=== PATIENT | female | born 1950 | race Caucasian/White ===

== ENCOUNTER 2017-08-11 18:46 | Inpatient (IN) | payer MEDICARE, OTHER ==
[2017-08-11 19:16] LABS: Glucose,Whole Blood 254 mg/dL (75-99)
--- NOTE | 2017-08-11 19:18 | ED ---
General Adult HPI - General Chief complaint: Neuro Symptoms/Deficit Stated complaint: DIZZY, CONFUSION, SLURRED SPEACH Time Seen by Provider: 08/11/17 19:03 Source: patient, RN notes reviewed Mode of arrival: ambulatory Limitations: no limitations - History of Present Illness Initial comments: Patient is a pleasant 66-year-old female presenting to the emergency department with several concerns. Patient states onset of symptoms was close to 2 weeks ago. Symptoms have been somewhat intermittent but worse since this morning. Patient has some episodes of slurred speech in the morning however feels at this point that has resolved. Patient does feel off balance at times leans towards the left. Patient does feel confused at times. Patient states she feels somewhat slow to process things. No isolated area of weakness. - Related Data Home Medications Medication Instructions Recorded Confirmed Aspirin [Adult Low Dose Aspirin EC] 81 mg PO HS 08/11/17 08/11/17 Colchicine [Colcrys] 0.6 mg PO BID 08/11/17 08/11/17 DULoxetine HCL [Cymbalta] 30 mg PO BID 08/11/17 08/11/17 Desloratadine [Clarinex] 5 mg PO HS 08/11/17 08/11/17 Doxepin [SINEquan] 20 mg PO HS PRN 08/11/17 08/11/17 Insulin Aspart [Novolog Flexpen] See Protocol SQ TID 08/11/17 08/11/17 Insulin Detemir [Levemir] 50 unit SQ HS 08/11/17 08/11/17 Levothyroxine Sodium [Synthroid] 100 mcg PO HS 08/11/17 08/11/17 Lidocaine 5% Oint [Xylocaine 5% 1 applic TOPICAL BID 08/11/17 08/11/17 Oint] Lisinopril [Prinivil] 5 mg PO HS 08/11/17 08/11/17 Metoprolol Tartrate [Lopressor] 50 mg PO TID 08/11/17 08/11/17 Nitroglycerin Sl Tabs [Nitrostat] 0.4 mg SUBLINGUAL Q5M PRN 08/11/17 08/11/17 Simvastatin 80 mg PO HS 08/11/17 08/11/17 Ticagrelor [Brilinta] 90 mg PO BID 08/11/17 08/11/17 hydrOXYzine HCL 10 mg PO HS PRN 08/11/17 08/11/17 rOPINIRole HCL 3 mg PO TID 08/11/17 08/11/17 Allergies Allergy/AdvReac Type Severity Reaction Status Date / Time Penicillins Allergy Rash/Hives Verified 08/11/17 19:58 Review of Systems ROS Statement: Those systems with pertinent positive or pertinent negative responses have been documented in the HPI. ROS Other: All systems not noted in ROS Statement are negative. Constitutional: Denies: fever Eyes: Denies: eye pain ENT: Denies: ear pain Respiratory: Denies: cough Cardiovascular: Denies: chest pain Endocrine: Denies: fatigue Gastrointestinal: Denies: abdominal pain Genitourinary: Denies: dysuria Musculoskeletal: Denies: back pain Skin: Denies: rash Neurological: Reports: confusion, abnormal gait Past Medical History Past Medical History: Chest Pain / Angina, Diabetes Mellitus History of Any Multi-Drug Resistant Organisms: None Reported Past Surgical History: Heart Catheterization With Stent, Orthopedic Surgery Past Psychological History: Depression Smoking Status: Never smoker Past Alcohol Use History: Occasional Past Drug Use History: None Reported General Exam Limitations: no limitations General appearance: alert, in no apparent distress Head exam: Present: atraumatic Eye exam: Present: normal appearance, PERRL, EOMI. Absent: nystagmus ENT exam: Present: normal oropharynx Neck exam: Present: normal inspection Respiratory exam: Present: normal lung sounds bilaterally Cardiovascular Exam: Present: regular rate, normal rhythm GI/Abdominal exam: Present: soft. Absent: tenderness Extremities exam: Present: normal inspection Neurological exam: Present: alert, oriented X3, CN II-XII intact. Absent: motor sensory deficit Expanded Cranial nerves: EOM's Intact: Normal, Facial Sensation: Normal Cerebellar function: Finger to Nose: Normal Sensory exam: Upper Extremity Light Touch: Normal, Lower Extremity Light Touch: Normal Motor strength exam: RUE: 5, LUE: 5, RLE: 5, LLE: 5 Eye Response: (4) open spontaneously Motor Response: (6) obeys commands Verbal Response: (5) oriented Psychiatric exam: Present: normal affect, normal mood Skin exam: Present: normal color Course Vital Signs 08/11/17 18:58 Temperature 98.7 F Pulse Rate 102 H Respiratory 18 Rate Blood Pressure 187/93 O2 Sat by Pulse 95 Oximetry EKG Findings - EKG Comments: EKG Findings:: Normal sinus rhythm 99. UT 160. QRS 90. QT 352. QTC 451. Normal axis. LVH criteria. Inferior and septal Q waves. No acute ST change. Medical Decision Making - Medical Decision Making Patient reevaluated and resting comfortably in bed. Patient symptom-free at this time. Patient and family updated on results and plan. Case was discussed in detail with Dr. paz, who will admit for hospital call. - Lab Data Result diagrams: 08/11/17 19:11 08/11/17 19:11 Lab Results 08/11/17 08/11/17 08/11/17 Range/Units 19:11 19:11 19:11 WBC 6.1 (3.8-10.6) k/uL RBC 4.48 (3.80-5.40) m/uL Hgb 13.1 (11.4-16.0) gm/dL Hct 39.5 (34.0-46.0) % MCV 88.0 (80.0-100.0) fL MCH 29.2 (25.0-35.0) pg MCHC 33.2 (31.0-37.0) g/dL RDW 14.4 (11.5-15.5) % Plt Count 155 (150-450) k/uL Neutrophils % 64 % Lymphocytes % 27 % Monocytes % 6 % Eosinophils % 0 % Basophils % 0 % Neutrophils # 3.9 (1.3-7.7) k/uL Lymphocytes # 1.7 (1.0-4.8) k/uL Monocytes # 0.3 (0-1.0) k/uL Eosinophils # 0.0 (0-0.7) k/uL Basophils # 0.0 (0-0.2) k/uL PT (9.0-12.0) sec INR (<1.2) APTT (22.0-30.0) sec Sodium 146 H (137-145) mmol/L Potassium 4.3 (3.5-5.1) mmol/L Chloride 104 (98-107) mmol/L Carbon Dioxide 29 (22-30) mmol/L Anion Gap 13 mmol/L BUN 18 H (7-17) mg/dL Creatinine 0.80 (0.52-1.04) mg/dL Est GFR (CKD-EPI)AfAm 88 (>60 ml/min/1.73 sqM) Est GFR (CKD-EPI)NonAf 77 (>60 ml/min/1.73 sqM) Glucose 241 H (74-99) mg/dL POC Glucose (mg/dL) (75-99) mg/dL POC Glu Press Operator Automatic ID Calcium 10.1 (8.4-10.2) mg/dL Total Bilirubin 0.6 (0.2-1.3) mg/dL AST 34 (14-36) U/L ALT 44 (9-52) U/L Alkaline Phosphatase 100 (38-126) U/L Total Creatine Kinase 160 H (30-135) U/L CK-MB (CK-2) 5.4 H* (0.0-2.4) ng/mL CK-MB (CK-2) Rel Index 3.4 Troponin I <0.012 (0.000-0.034) ng/mL Total Protein 6.7 (6.3-8.2) g/dL Albumin 4.2 (3.5-5.0) g/dL 08/11/17 08/11/17 Range/Units 19:11 19:13 WBC (3.8-10.6) k/uL RBC (3.80-5.40) m/uL Hgb (11.4-16.0) gm/dL Hct (34.0-46.0) % MCV (80.0-100.0) fL MCH (25.0-35.0) pg MCHC (31.0-37.0) g/dL RDW (11.5-15.5) % Plt Count (150-450) k/uL Neutrophils % % Lymphocytes % % Monocytes % % Eosinophils % % Basophils % % Neutrophils # (1.3-7.7) k/uL Lymphocytes # (1.0-4.8) k/uL Monocytes # (0-1.0) k/uL Eosinophils # (0-0.7) k/uL Basophils # (0-0.2) k/uL PT 10.4 (9.0-12.0) sec INR 1.1 (<1.2) APTT 27.4 (22.0-30.0) sec Sodium (137-145) mmol/L Potassium (3.5-5.1) mmol/L Chloride (98-107) mmol/L Carbon Dioxide (22-30) mmol/L Anion Gap mmol/L BUN (7-17) mg/dL Creatinine (0.52-1.04) mg/dL Est GFR (CKD-EPI)AfAm (>60 ml/min/1.73 sqM) Est GFR (CKD-EPI)NonAf (>60 ml/min/1.73 sqM) Glucose (74-99) mg/dL POC Glucose (mg/dL) 254 H (75-99) mg/dL POC Glu Press Operator Automatic ID Iesha Ayoub Calcium (8.4-10.2) mg/dL Total Bilirubin (0.2-1.3) mg/dL AST (14-36) U/L ALT (9-52) U/L Alkaline Phosphatase (38-126) U/L Total Creatine Kinase (30-135) U/L CK-MB (CK-2) (0.0-2.4) ng/mL CK-MB (CK-2) Rel Index Troponin I (0.000-0.034) ng/mL Total Protein (6.3-8.2) g/dL Albumin (3.5-5.0) g/dL - Radiology Data Radiology results: report reviewed (Computed tomography scan of the brain shows no acute intercranial hemorrhage. Mild to moderate age-related atrophy.), image reviewed (Chest x-ray shows no acute abnormality.) Disposition Clinical Impression: Transient cerebral ischemia Disposition: ADMITTED IP TO THIS HOSP Is patient prescribed a controlled substance at d/c from ED?: No Referrals: Gaye Barrett MD [Primary Care Provider] - 1-2 days Decision Time: 21:35
[2017-08-11 19:33] LABS: Basophils % (A) 0 %; Eosinophils % (A) 0 %; HCT 39.5 % (34.0-46.0); HGB 13.1 gm/dL (11.4-16.0); Lymphocytes # (A) 1.7 k/uL (1.0-4.8); Lymphocytes % (A) 27 %; MCH 29.2 pg (25.0-35.0); MCHC 33.2 g/dL (31.0-37.0); Mean Platelet Volume 7.8; Monocytes # (A) 0.3 k/uL (0-1.0); Monocytes % (A) 6 %; Neutrophils # (A) 3.9 k/uL (1.3-7.7); Neutrophils % (A) 64 %; Platelet Count 155 k/uL (150-450); RBC 4.48 m/uL (3.80-5.40); RDW 14.4 % (11.5-15.5); WBC 6.1 k/uL (3.8-10.6)
--- NOTE | 2017-08-11 19:33 | XR ---
EXAMINATION TYPE: XR chest 2V DATE OF EXAM: 08/11/2017 COMPARISON: NONE HISTORY: Altered mental status and weakness. TECHNIQUE: Frontal and lateral views of the chest are obtained. FINDINGS: There is chronic parenchymal change without suspicious focal air space opacity, pleural ef fusion, or pneumothorax seen. The cardiac silhouette size is within normal limits. Prominent multile suzanne spurring in the mid to lower thoracic spine is present. IMPRESSION: Chronic changes without acute pulmonary process.
[2017-08-11 19:38] LABS: Albumin 4.2 g/dL (3.5-5.0); Calcium 10.1 mg/dL (8.4-10.2); Potassium 4.3 mmol/L (3.5-5.1); Total Bilirubin 0.6 mg/dL (0.2-1.3); Total Protein 6.7 g/dL (6.3-8.2)
[2017-08-11 19:51] LABS: INR 1.1 (<1.2); Partial Thromboplastin Time 27.4 sec (22.0-30.0); Prothrombin Time 10.4 sec (9.0-12.0)
[2017-08-11 20:00] LABS: Creatine Kinase 160 U/L (30-135)
[2017-08-11 20:13] LABS: Troponin I <0.012 ng/mL (0.000-0.034)
[2017-08-11 20:19] LABS: Creatine Kinase MB 5.4 ng/mL (0.0-2.4)
--- NOTE | 2017-08-11 20:29 | CT ---
EXAMINATION TYPE: CT brain wo con DATE OF EXAM: 08/11/2017 HISTORY: Confusion. Neurodeficits. CT DLP: 1040.6 mGycm. Automated Exposure Control for Dose Reduction was Utilized. TECHNIQUE: CT scan of the head is performed without contrast. COMPARISON: None. FINDINGS: There is no acute intracranial hemorrhage or midline shift identified. There is diffuse v entricular and sulcal prominence consistent with diffuse age-related cerebral atrophy. Lopez-white mat ter differentiation is fairly well preserved. The globes are intact and the visualized sinuses are cl ear. IMPRESSION: No acute intracranial hemorrhage or midline shift. There is mild to moderate diffuse ag e-related cerebral atrophy noted.
[2017-08-11] MEDS ORDERED: ASPIRIN 325 MG TAB PO STA (21:35)
[2017-08-11] MEDS: SODIUM CHLORIDE 0.9% 1,000 ML IV SCH (22:16)
[2017-08-12 03:29] LABS: Cholesterol 157 mg/dL (<200); HDL Cholesterol 33 mg/dL (40-60); LDL Cholesterol,Calculated 100 mg/dL (0-99); Triglycerides 120 mg/dL (<150)
[2017-08-12] MEDS: SODIUM CHLORIDE 0.9% 1,000 ML IV SCH ×2 (04:01→19:39)
[2017-08-12 06:05] LABS: Glucose,Whole Blood 262 mg/dL (75-99)
[2017-08-12] MEDS: INSULIN ASPART 100 UNIT/ML 1 ML 10 ML VIAL SQ SCH ×4 (06:34→22:08)
[2017-08-12] MEDS ORDERED: LIDOCAINE 5% OINTMENT 50 GM JAR TOPICAL PRN (08:16)
[2017-08-12] MEDS ORDERED: DOXEPIN 10 MG CAP PO PRN (08:16)
[2017-08-12] MEDS ORDERED: hydrOXYzine HCL 10 MG TAB PO PRN (08:16)
[2017-08-12] MEDS ORDERED: NITROGLYCERIN SL TABS 0.4 MG TAB SUBLINGUAL PRN (08:16)
[2017-08-12] MEDS ORDERED: ASPIRIN 325 MG TAB PO SCH (09:00)
[2017-08-12] MEDS: COLCHICINE 0.6 MG EACH PO SCH ×2 (10:41→21:04)
[2017-08-12] MEDS: ASPIRIN 81 MG PO SCH (10:41)
[2017-08-12] MEDS: DULoxetine HCL 30 MG CAPSULE.DR PO SCH ×2 (10:42→21:04)
[2017-08-12] MEDS: METOPROLOL TARTRATE 50 MG TAB PO SCH ×3 (10:42→21:06)
[2017-08-12] MEDS: TICAGRELOR 90 MG TAB PO SCH ×2 (10:42→21:04)
[2017-08-12 11:46] LABS: Glucose,Whole Blood 273 mg/dL (75-99)
[2017-08-12 16:41] LABS: Glucose,Whole Blood 257 mg/dL (75-99)
[2017-08-12 17:33] LABS: Hemoglobin A1C 9.5 % (4.0-6.0)
--- NOTE | 2017-08-12 18:47 | HP ---
HISTORY AND PHYSICAL DATE OF ADMISSION: 08/11/2017 DATE OF SERVICE: 08/12/2017 PRESENTING COMPLAINT: Multiple symptoms. HISTORY OF PRESENTING COMPLAINT: This is a 66-year-old patient who follows with a family doctor, Dr. Barrett, out of the area. Patient's chronic stable medical conditions include diabetes, coronary artery disease with stents, last one being in April of this year, depression, restless legs syndrome, hypertension, hypothyroid, gout. Patient presented with a multitude of symptoms. For 2 weeks patient has been getting dizzy, and when she walks she seems to drift to the left side. Also sometimes she feels confused. The patient has had 2 episodes of falling and noted that she has become increasingly forgetful. For example, for the last 2 or 3 days she put an orange on the table to peel and went back to get another orange. She was reminded that she already had an orange there. Patient in the last 3 months has had two admissions to [facility], and her brought her here, just wanting to see if we could look at things from a different view. Patient thinks she may have had also a little bit of slurred speech. I do not have any records from [facility]. She denies any chest pain, palpitation. No fever, no chills. Appetite is fair. Does feel tired and rundown. REVIEW OF SYSTEMS: CONSTITUTIONAL: Tired. HEENT: None. RESPIRATORY: None. CARDIOVASCULAR: None. GASTROINTESTINAL: None. GENITOURINARY: None. MUSCULOSKELETAL: None. DERMATOLOGICAL: None. HEMATOLOGICAL: None. LYMPHATICS: None. PSYCHIATRY: Depression. NEUROLOGICAL: As above. No focal symptoms otherwise. PAST MEDICAL HISTORY: 1. Coronary artery disease with 6 stents, last one being in April of this year. 2. Depression. 3. Diabetes mellitus, type 2. 4. Restless legs syndrome. 5. Hypertension. 6. Hypothyroid. 7. Gout. PAST SURGICAL HISTORY: 1. Cardiac cath with stents, last one in April of this year. 2. Orthopedic surgery. SOCIAL HISTORY: No smoking. No alcohol. Lives with her . FAMILY HISTORY: Reviewed; noncontributory to presentation. HOME MEDICATIONS: 1. Ropinirole 3 mg p.o. t.i.d. 2. Hydroxyzine 10 mg p.o. at bedtime p.r.n. 3. Brilinta 90 mg b.i.d. 4. Lopressor 50 mg p.o. t.i.d. 5. Prinivil 5 mg p.o. at bedtime. 6. Xylocaine 5% one application topically b.i.d. 7. Synthroid 100 mcg a day. 8. Clarinex 5 mg at bedtime. 9. Cymbalta 30 mg p.o. b.i.d. 10.Colchicine 0.6 mg b.i.d. 11.Doxepin 20 mg at bedtime p.r.n. 12.Aspirin 81 mg at bedtime. 13.Levemir 50 units subcutaneously at bedtime. 14.Simvastatin 80 mg at bedtime. 15.Nitrostat 0.4 sublingually q.5 p.r.n. ALLERGIES: PENICILLIN. PHYSICAL EXAMINATION: VITAL SIGNS ON PRESENTATION: Temperature 98.7, pulse 102, respiration 18, blood pressure 187/93, repeat blood pressure 156/66, pulse ox 95% on room air. GENERAL APPEARANCE: Well built; BMI 32.4. Lying in bed, tired-appearing. EYES: Pupils equal. Conjunctivae normal. HEENT: External appearance of nose and ears normal. Oral cavity normal. NECK: JVD not raised. Mass not palpable. RESPIRATORY: Effort normal. LUNGS: Fair air entry. CARDIOVASCULAR: First and second sounds normal. No edema. ABDOMEN: Soft, nontender. Liver and spleen not palpable. LYMPHATIC: No lymph node palpable in neck or axillae. PSYCHIATRY: Patient is able answer questions appropriately. Mood and affect slightly low. NEUROLOGICAL: Pupils equal. Cranial nerves grossly intact. Power and sensation grossly intact. INVESTIGATIONS: White count 6.1, hemoglobin 13.1, sodium 146, potassium 4.3, BUN 18, creatinine 0.80. Accu-Cheks 254, 262. Troponin I less than 0.012. LDL 100. CT scan of the brain: mild to moderate diffuse age-related cerebral atrophy. EKG shows normal sinus rhythm, though poor; not a very good baseline. ASSESSMENT: 1. This is a patient who presented with a multitude of symptoms, feeling dizzy, lightheaded, tired, getting confused sometimes, and increasingly forgetful. Given patient's being overweight and feeling tired and lethargic, need to rule out patient being undercorrected for hypothyroid. At the same time, patient is taking Clarinex at night; that is rather sedative. Will discontinue that and also will discontinue patient's Sinequan. Patient is also taking hydroxyzine p.r.n. at night. Will discontinue all of these because these are all antihistaminics. The patient is also taking ropinirole 3 mg 3 times a day, and that could be having a rather sedative effect. Will cut back on the dose of the same. 2. Rule out orthostatics. 3. Probably mild cognitive impairment. We did a Juan F cognitive assessment test that came back to be okay and the bedside mini cogwheel test that also came back to be okay. 4. Diabetes mellitus, type 2, chronically on insulin, uncontrolled with hyperglycemia. 5. Coronary artery disease with multiple stents, the last being in April of 2017. 6. Depression not otherwise specified. 7. Chronic restless legs syndrome. 8. Hypertension. 9. Hypothyroid. 10.Chronic gout. 11.Obesity; body mass index 32.4. PLAN: Additionally we will do an MRI of the brain and also an EEG to rule out seizure activity. Patient is on a high dose of simvastatin, a dose which has not been approved anymore. We will switch that to Lipitor. Neurological consultation has been done. MMODL / IJN: [id number] /
[2017-08-12] MEDS ORDERED: LORATADINE 10 MG TAB PO SCH (21:00)
[2017-08-12] MEDS: ENOXAPARIN 40 MG/0.4 ML SYRINGE SQ SCH (21:03)
[2017-08-12] MEDS: LACTATED RINGERS 1,000 ML IV SCH (21:03)
[2017-08-12] MEDS: LEVOTHYROXINE 100 MCG TAB PO SCH (21:04)
[2017-08-12] MEDS: ATORVASTATIN 40 MG TAB PO SCH (21:04)
[2017-08-12] MEDS: LISINOPRIL 5 MG TAB PO SCH (21:04)
--- NOTE | 2017-08-12 21:12 | US ---
EXAMINATION TYPE: US carotid duplex BILAT DATE OF EXAM: 08/12/2017 COMPARISON: NONE CLINICAL HISTORY: CVA. CVA EXAM MEASUREMENTS: RIGHT: Peak Systolic Velocity (PSV) cm/sec ----- Right CCA: 65.2 ----- Right ICA: 100.0 ----- Right ECA: 84.9 ICA/CCA ratio: 1.5 RIGHT: End Diastole cm/sec ----- Right CCA: 16.5 ----- Right ICA: 28.4 ----- Right ECA: 8.3 LEFT: Peak Systolic Velocity (PSV) cm/sec ----- Left CCA: 68.5 ----- Left ICA: 95.0 ----- Left ECA: 88.7 ICA/CCA ratio: 1.4 LEFT: End Diastole cm/sec ----- Left CCA: 16.0 ----- Left ICA: 28.4 ----- Left ECA: 12.1 VERTEBRALS (direction of flow): Right Vertebral: Antegrade Left Vertebral: Antegrade Rhythm: Normal IMPRESSION: Mild bilateral atherosclerotic changes noted, no elevated velocities, no significant josé miguel nosis. Criteria for Assigning % of Stenosis / Diameter reduction (Estimation based on the indirect measurements of the internal carotid artery velocities (ICA PSV). 1. Normal (no stenosis)=ICA PSV < 125 cm/s: ratio < 2.0: ICA EDV<40 cm/s. 2. Less than 50% stenosis=ICA PSV < 125 cm/s: ratio < 2.0: ICA EDV<40 cm/s. 3. 50 to 69% stenosis=ICA PSV of 125 to 230 cm/s: ration 2.0 ? 4.0: ICA EDV 40-100 cm/s. 4. Greater than 70% stenosis to near occlusion= ICA PSV > 230 cm/s: ratio > 4.0: ICA EDV > 100 cm/s. 5. Near occlusion= ICA PSV velocities may be low or undetectable: variable ratio and ICA EDV. 6. Total occlusion=unable to detect flow.
[2017-08-12 21:18] LABS: Glucose,Whole Blood 219 mg/dL (75-99)
[2017-08-12] MEDS: INSULIN DETEMIR 100 UNIT/ML 10 ML VIAL SQ SCH (22:08)
--- NOTE | 2017-08-12 22:14 | CONS ---
CONSULTATION DATE OF CONSULTATION: 08/12/2017. CHIEF COMPLAINT: Slurred speech. HISTORY OF PRESENT ILLNESS: The patient is a pleasant 66-year-old female, who is being evaluated by the neurology service per the request of Dr. Donato for some slurred speech. The patient states that she has been having recurrent episodes of slurred speech over the past several days. She feels like the symptoms are more frequent in the morning. She frequently wakes up with significant slurring and this sort of resolves after an hour or 2. She also feels some gait instability when the symptoms are present. She denies having any lateralizing numbness or weakness and denies any swallowing difficulties. She does report some confusion at times when these symptoms occur. She denies any headache or dizziness. A CT scan of the brain was done in the emergency room which showed generalized atrophy and small-vessel ischemic changes. The patient does take aspirin and Brilinta at home. Her CBC was normal. Her comprehensive metabolic profile showed mild hypernatremia at 146 and hyperglycemia at 241. Her cardiac enzymes showed normal troponin I, but her CPK and CK-MB were slightly elevated at 160 and 5.4, respectively. Her fasting lipid panel showed an LDL at 100 and HDL at 33. Her total cholesterol and triglycerides were normal. The patient does state simvastatin at home. At the time of my evaluation, the patient is lying in her bed and appears to be in no acute distress. She does have mild speech slurring with history taking. She denies any other neurological complaints at this time. PAST MEDICAL HISTORY: Coronary artery disease, diabetes, depression, history of orthopedic surgeries, coronary artery stent placement, hypothyroidism, restless legs syndrome. SOCIAL HISTORY: She occasionally drinks alcohol. She denies any tobacco or drug use. FAMILY HISTORY: Noncontributory. HOME MEDICATIONS: Reviewed in the chart. ALLERGIES: PENICILLIN. REVIEW OF SYSTEMS: positive for fatigue. EYES: Negative. ENT: Positive for chronic diminished hearing. CARDIOVASCULAR: Negative. RESPIRATORY: Negative. NEUROLOGICAL: As mentioned above. GASTROINTESTINAL: Positive for occasional heartburn. GENITOURINARY: Negative. PSYCHIATRIC: Positive for history of depression. DERMATOLOGICAL: Negative. ENDOCRINE: Positive for diabetes and hypothyroidism. MUSCULOSKELETAL: Positive for occasional joint pain. PHYSICAL EXAM: Vital signs show a temperature of 97.9, pulse 91, respiration 18, blood pressure 136/79. GENERAL APPEARANCE: The patient is a well-developed, elderly female who appears to be in no acute distress. HEENT: Normocephalic, atraumatic. No facial asymmetry is seen. NECK: Supple with no masses felt. CARDIOVASCULAR: Regular rate and rhythm. Extremities showed trace edema with no clubbing seen. NEUROLOGICAL: The patient is alert, aware and oriented x3. Speech is slightly dysarthric. Language testing is normal. Strength is full in all 4 extremities. Sensory was normal to light touch in all 4 extremities. Mild postural tremors are seen. No seizure-like activity is noticed. No facial asymmetry is seen on cranial nerve testing. IMPRESSION: 1. Dysarthria. 2. Possible stroke. 3. Dyslipidemia. 4. Restless legs syndrome. RECOMMENDATION: The patient continues to have some slurred speech which is still present at the time of my evaluation. She denies any dysphagia at this time. Her CT scan of the brain showed no significant abnormalities. I had a lengthy discussion with the patient regarding the differential diagnosis. I will order an MRI of the brain to rule out any ischemic etiology. I will also order a carotid Doppler, serum homocystine level and EEG. Her fasting lipid panel was reviewed and the patient is already on simvastatin. I will consult Speech Therapy. Continue IV hydration as tolerated. Continue her current anti- platelet therapy. I will continue to follow with you. Further recommendations to follow. Thank you for allowing me to participate in the care of your patient. If you have any questions, please feel free to contact me. JEREMY / NOLAN: [id number] /
[2017-08-12] MEDS: MELATONIN 5 MG TABLET PO SCH (22:43)
[2017-08-13] MEDS: LACTATED RINGERS 1,000 ML IV SCH ×2 (05:25→16:36)
[2017-08-13 05:59] LABS: Glucose,Whole Blood 137 mg/dL (75-99)
[2017-08-13] MEDS: INSULIN ASPART 100 UNIT/ML 1 ML 10 ML VIAL SQ SCH ×7 (06:18→21:02)
--- NOTE | 2017-08-13 08:46 | MR ---
EXAMINATION TYPE: MR brain wo/w con DATE OF EXAM: 08/13/2017 COMPARISON: CT brain 08/11/2017 HISTORY: dizziness TECHNIQUE: Multiplanar, multisequence images of the brain and brainstem is performed without and with IV contras t, utilizing 9.5 mL intravenous Gadavist . FINDINGS: Diffusion weighted images demonstrate no evidence of a recent infarct or other diffusion ab normality. There is generalized moderate degenerative change with a slightly greater central component. Prominen t cisterna magna noted. Changes of chronic sinusitis noted. No evidence of cerebellopontine angle mass. Faint abnormal signal the hazel is suggestive of remote ischemia. Midline structures demonstrate normal morphology. The craniocervical junction appears within normal limits. Post contrast images demonstrate no abnormal enhancement. The dural venous sinuses appear pa tent. The visualized sinuses are clear and the globes are intact. White matter: There are approximately 10-15 less than 5 mm areas of abnormal signal which are nonspec ific. IMPRESSION: 1. Degenerative change with a greater central component. Therefore, possibility of normal pressure hy drocephalus in the differential diagnosis. 2. Nonspecific white matter changes. Differential diagnosis would include remote microvascular ischem ia, hypertension or demyelinating process.
[2017-08-13 09:10] LABS: Glucose,Whole Blood 80 mg/dL (75-99)
[2017-08-13] MEDS: COLCHICINE 0.6 MG EACH PO SCH ×2 (09:21→21:01)
[2017-08-13] MEDS: TICAGRELOR 90 MG TAB PO SCH ×2 (09:21→21:01)
[2017-08-13] MEDS: ENOXAPARIN 40 MG/0.4 ML SYRINGE SQ SCH (09:21)
[2017-08-13] MEDS: ASPIRIN 81 MG PO SCH (09:21)
[2017-08-13] MEDS: DULoxetine HCL 30 MG CAPSULE.DR PO SCH ×2 (09:21→21:01)
[2017-08-13 09:24] VITALS: RESP 16
[2017-08-13] MEDS: METOPROLOL TARTRATE 50 MG TAB PO SCH (12:13)
[2017-08-13 12:51] LABS: Glucose,Whole Blood 100 mg/dL (75-99)
[2017-08-13 12:51] LABS: Glucose,Whole Blood 100 mg/dL (75-99)
[2017-08-13 15:11] VITALS: BMI 32.2
[2017-08-13] MEDS ORDERED: METOPROLOL TARTRATE 25 MG TAB PO SCH (16:00)
[2017-08-13 17:11] LABS: Glucose,Whole Blood 182 mg/dL (75-99)
--- NOTE | 2017-08-13 17:15 | EEG ---
ELECTROENCEPHALOGRAM REPORT DATE OF SERVICE: 08/13/2017 REASON FOR TESTING: Transient ischemic attack. DESCRIPTION OF THE PROCEDURE: This EEG was performed using a 21-channel digital electroencephalograph, following international 10-20 system. DESCRIPTION OF THE RECORDING: From the beginning of the tracing, and with the patient's eyes closed, the background rhythm was mostly consisting of 8 Hz alpha frequency in the posterior occipital leads. No obvious asymmetry is seen. Frequent muscle and movement artifacts are seen. Photic stimulation was performed with a minimal driving response seen. No pathological waves were elicited. Hyperventilation was not performed. The patient remains awake throughout the tracing. No epileptiform discharges were seen. INTERPRETATION: This awake EEG can be considered within normal limits. There was no asymmetry seen. No epileptiform discharges were noticed. The absence of epileptiform discharges does not rule out the diagnosis of epilepsy; therefore clinical correlation is recommended. MMHEAVENLY / NOLAN: [id number] /
--- NOTE | 2017-08-13 17:39 | P.PN ---
Subjective Progress Note Date: 08/13/17 Patient is a pleasant 66-year-old female who is being followed by the neurology service for slurred speech. Patient states she has been having recurrent episodes of slurred speech over the past few days. She states she feels the symptoms are worse in the morning. She states once she is up a couple of hours the symptoms go away. Patient also reports gait instability and dizziness. Patient came to [facility] for further evaluation. Computed tomography scan of the brain was done which showed generalized atrophy and small vessel ischemic changes. The patient is on aspirin and Brilinta at home. Patient continues to report lightheadedness with gait instability. Patient also reports mild changes in mentation over the last few months. Patient speech is clear today. No other new neurological complaints at this time. At the time of my evaluation patient is resting comfortably in bed and appears to be in no acute distress. Objective - Vital Signs Vital signs: Vital Signs Temp 98.4 F 08/13/17 17:13 Pulse 65 08/13/17 17:13 Resp 16 08/13/17 17:13 BP 117/72 08/13/17 17:13 Pulse Ox 96 08/13/17 17:13 Intake & Output 08/12/17 08/13/17 08/13/17 18:59 06:59 18:59 Intake Total 672 1100 180 Balance 672 1100 180 Weight 96.2 kg 96.2 kg Intake: Intake, IV Titration 1100 Amount Lactated Ringers 1,000 ml 1100 @ 100 mls/hr IV .Q10H FRANCISCO Rx#:[id number] Oral 672 180 Other: Voiding Method Toilet Toilet # Voids 2 2 1 # Bowel Movements 1 - Exam PHYSICAL EXAM: GENERAL APPEARANCE: Patient is a well-developed, female who appears to be in no acute distress. HEENT: Normocephalic, atraumatic, no facial asymmetry is seen. Neck is supple with no masses felt. CARDIOVASCULAR: Regular rate and rhythm. ABDOMEN: Nontender, nondistended. EXTREMITIES: Show no edema or clubbing. NEUROLOGICAL EXAM: Patient is awake, alert, and oriented 3. Speech and language are normal. Strength is full in all 4 extremities. Sensory exam to light touch is normal in all 4 extremities. No facial asymmetry is seen on cranial nerve testing. No tremors or seizure-like activity noted. - Labs CBC & Chem 7: 08/11/17 19:11 08/11/17 19:11 Labs: Abnormal Lab Results - Last 24 Hours (Table) 08/11/17 08/12/17 08/13/17 Range/Units 19:11 21:16 05:58 POC Glucose (mg/dL) 219 H 137 H (75-99) mg/dL Hemoglobin A1c 9.5 H (4.0-6.0) % 08/13/17 08/13/17 08/13/17 Range/Units 12:15 12:28 17:07 POC Glucose (mg/dL) 100 H 100 H 182 H (75-99) mg/dL Hemoglobin A1c (4.0-6.0) % Assessment and Plan Plan: Impression: 1. Dysarthria, resolved 2. TIA 3. Possible NPH 4. Restless leg syndrome 5. Hypotension 6. Urinary incontinence line 7. Gait instability 8. Occasional mental status changes Recommendation: The patient's slurred speech has resolved. She denies any dysphagia. As mentioned above, computed tomography scan of the brain showed no significant abnormalities. MRI of the brain showed possible evidence of normal pressure hydrocephalus. I did discuss this with the patient at length. Workup for NPH can be done as an outpatient. Patient does report having triad of symptoms consistent with NPH. As for patient's lightheadedness and dizziness, a Vestibular Autorotation Test can be performed in the office as an outpatient. Patient does report having had vestibular rehab in the past which helped significantly. We can schedule her for vestibular rehab in the office after discharge. Carotid Dopplers were negative for any hemodynamically significant stenosis. EEG was normal. Patient has been hypotensive at times and medications are being adjusted. Patient's lipid panel was within normal limits except for high LDL of 100 and low HDL of 33. Continue aspirin and statin medications. Homocystine level was within normal limits. Patient is stable for discharge from a neurological standpoint. She can follow up in the office for further testing as mentioned above. I will continue to follow with you on an as-needed basis. Feel free to call with any questions or concerns. I performed an examination of the patient and discussed the management with the ROTARY SAW OPERATOR. I have reviewed the ROTARY SAW OPERATOR notes and agree with the findings and plan of care.
--- NOTE | 2017-08-13 19:29 | PN ---
PROGRESS NOTE DATE OF SERVICE: 08/13/2017 PRESENTING COMPLAINT: Tired. INTERVAL HISTORY: This patient has a multitude of symptoms, including dizzy lightheaded, tired, confused, forgetful, lethargic. The patient's Sinequan, hydroxyzine and also patient's ropinirole dose was cut back. The patient's EEG unremarkable. An MRI showed no specific changes. Patient's blood pressure is running on the lower side. The patient overall does feel better, a bit more awake. REVIEW OF SYSTEMS: Done for constitutional, cardiovascular, GI, pulmonary; relevant findings as above. Telemetry is unremarkable. CURRENT MEDICATIONS: Reviewed, including the patient's Requip dose was cut back. EXAMINATION: Temperature 97.6, pulse 87, respirations 16, blood pressure 109/51, pulse ox 97% on room air. GENERAL APPEARANCE: Lying in bed, more awake. EYES: Pupil equal. Conjunctivae normal. HEENT: External nose and ears normal. Oral cavity normal. NECK: JVD unable to assess. Mass not palpable. RESPIRATORY: Effort normal. LUNGS: Fair air entry. CARDIOVASCULAR: First and second heart sounds normal. No edema. ABDOMEN: Soft, nontender. Liver and spleen not palpable. PSYCHIATRY: Alert and oriented x3. Mood and affect more perky. INVESTIGATIONS: EEG unremarkable. MRI nonspecific. TSH normal. ASSESSMENT: 1. Lethargic, probably side effect of medications. The patient's dose of ropinirole has been cut back. Sinequan was discontinued. Hydroxyzine was discontinued. 2. Relative hypotension, may feel better with blood pressure running a bit higher. 3. Mild cognitive impairment. Patient's Knipp[place] cognitive assessment has come back to be normal. 4. Diabetes mellitus type 2, chronically on insulin, uncontrolled with hypoglycemia. 5. Coronary artery disease with multiple stents, the last one being in April 2017. 6. Depression, not otherwise specified. 7. Chronic restless legs syndrome. 8. Essential hypertension. 9. Hypothyroid. 10.Chronic gout. 11.Obesity; BMI 32.4. PLAN: We will cut back on Lopressor to twice a day. Will watch the blood pressure overnight. Care was discussed with the patient and at the bedside. Neurology is following the patient. MMODL / IJN: [id number] /
[2017-08-13 20:20] LABS: Glucose,Whole Blood 92 mg/dL (75-99)
[2017-08-13] MEDS: LISINOPRIL 5 MG TAB PO SCH (21:01)
[2017-08-13] MEDS: ATORVASTATIN 40 MG TAB PO SCH (21:01)
[2017-08-13] MEDS: MELATONIN 5 MG TABLET PO SCH (21:01)
[2017-08-13] MEDS: LEVOTHYROXINE 100 MCG TAB PO SCH (21:01)
[2017-08-13] MEDS: INSULIN DETEMIR 100 UNIT/ML 10 ML VIAL SQ SCH (21:02)
[2017-08-13] MEDS: METOPROLOL TARTRATE 25 MG TAB PO SCH (21:03)
[2017-08-14] MEDS: LACTATED RINGERS 1,000 ML IV SCH ×2 (00:50→10:09)
[2017-08-14 07:16] LABS: Basophils % (A) 0 %; Eosinophils % (A) 0 %; HCT 36.2 % (34.0-46.0); Lymphocytes # (A) 1.6 k/uL (1.0-4.8); Lymphocytes % (A) 30 %; MCH 29.4 pg (25.0-35.0); MCHC 33.1 g/dL (31.0-37.0); MCV 88.8 fL (80.0-100.0); Mean Platelet Volume 8.5; Monocytes # (A) 0.3 k/uL (0-1.0); Monocytes % (A) 6 %; Neutrophils # (A) 3.2 k/uL (1.3-7.7); Neutrophils % (A) 61 %; Platelet Count 156 k/uL (150-450); RBC 4.08 m/uL (3.80-5.40); RDW 14.6 % (11.5-15.5); WBC 5.2 k/uL (3.8-10.6)
--- NOTE | 2017-08-14 07:24 | CT ---
EXAMINATION TYPE: CT brain wo con for TPA DATE OF EXAM: 08/14/2017 COMPARISON: 08/11/2017 HISTORY: TIA. Right-sided weakness with delayed speech. CT DLP: 1090.4 mGycm Automated exposure control for dose reduction was used. TECHNIQUE: CT scan of the head is performed without contrast. FINDINGS: There is no acute intracranial hemorrhage or midline shift identified. There is diffuse v entricular and sulcal prominence consistent with diffuse age-related cerebral atrophy. No suspicious extra axial fluid collection is seen. No hyperdense MCA sign. Basal ganglia and insular ribbon are we ll-preserved. There is low-attenuation in the periventricular white matter consistent with chronic sm all vessel ischemic change. The globes are intact and the visualized sinuses are clear. IMPRESSION: No acute intracranial process. No acute intracranial hemorrhage or midline shift. There is moderate diffuse age-related cerebral atrophy and chronic small vessel ischemic change, likely on the basis of chronic microangiopathy.
[2017-08-14 07:27] LABS: ALT 39 U/L (9-52); AST 27 U/L (14-36); Albumin 3.6 g/dL (3.5-5.0); Alkaline Phosphatase 76 U/L (38-126); Anion Gap 8 mmol/L; Blood Urea Nitrogen 18 mg/dL (7-17); Calcium 9.3 mg/dL (8.4-10.2); Carbon Dioxide 26 mmol/L (22-30); Chloride 107 mmol/L (98-107); Glucose 93 mg/dL (74-99); Potassium 4.2 mmol/L (3.5-5.1); Sodium 141 mmol/L (137-145); Total Bilirubin 0.4 mg/dL (0.2-1.3); Total Protein 5.9 g/dL (6.3-8.2)
[2017-08-14 07:29] LABS: INR 1.1 (<1.2); Partial Thromboplastin Time 27.3 sec (22.0-30.0); Prothrombin Time 10.7 sec (9.0-12.0)
[2017-08-14 07:53] LABS: Glucose,Whole Blood 101 mg/dL (75-99)
[2017-08-14] MEDS ORDERED: CLOPIDOGREL 75 MG TAB PO SCH (09:00)
[2017-08-14] MEDS: INSULIN ASPART 100 UNIT/ML 1 ML 10 ML VIAL SQ SCH ×4 (09:03→12:29)
[2017-08-14] MEDS ORDERED: ASPIRIN 81 MG PO SCH (10:00)
[2017-08-14] MEDS: COLCHICINE 0.6 MG EACH PO SCH (10:08)
[2017-08-14] MEDS: DULoxetine HCL 30 MG CAPSULE.DR PO SCH (10:08)
[2017-08-14] MEDS: METOPROLOL TARTRATE 25 MG TAB PO SCH (10:08)
[2017-08-14] MEDS: ENOXAPARIN 40 MG/0.4 ML SYRINGE SQ SCH (10:09)
[2017-08-14] MEDS: TICAGRELOR 90 MG TAB PO SCH (10:09)
[2017-08-14 12:03] LABS: Glucose,Whole Blood 185 mg/dL (75-99)
[2017-08-14 15:38] VITALS: BP 154/80; PULSE 65; TEMP 97.8
--- NOTE | 2017-08-20 06:50 | DS ---
DISCHARGE SUMMARY DATE OF ADMISSION: August 11, 2017. DATE OF DISCHARGE: August 14, 2017. FINAL DIAGNOSES: 1. Possible acute metabolic encephalopathy a side effect of medications. 2. Hypotension from blood pressure medications. 3. Mild cognitive impairment. 4. Diabetes mellitus type 2, chronically on insulin, uncontrolled with hyperglycemia. 5. Coronary artery disease with multiple stents, last one being in April 2017. 6. Depression, not otherwise specified. 7. Chronic restless legs syndrome. 8. Essential hypertension. 9. Hypothyroid. 10.Chronic gout. 11.Obesity; BMI 32.4. HOSPITAL COURSE: This patient presented with multiple symptoms, including dizzy, lightheaded, tired, confused and lethargic. I did stop patient's Sinequan, cut back on the dose of ropinirole from 3 mg to 1 mg 3 times a day. Simvastatin was switched. Clarinex was discontinued, so was hydroxy. Blood pressure was running low. Hence dose of Lopressor was reduced. The patient greatly improved symptom ackerman, doing much better. The patient also seen by Dr. Calles from Neurology did undergo a carotid Doppler that did not show any critical stenosis. EEG was within normal limits. CT scan of the brain nil acute. MRI of the brain nonspecific white matter changes and there was some possibility of normal-pressure hydrocephalus in the differential. Dr. Calles will follow up with this in the outpatient. On the day of discharge, care was discussed in detail with the patient. She was quite happy with the outcome. EXAMINATION: Lungs fair entry. Cardiovascular 1st and second sounds normal. Psych: AO x3. DISCHARGE MEDICATIONS: 1. Aspirin 81 mg q.h.s. 2. Colchicine 0.6 mg b.i.d. 3. Cymbalta 30 mg p.o. b.i.d. 4. NovoLog per protocol. 5. Levemir 50 units subcu q.h.s. 6. Synthroid 100 mcg p.o. q.h.s. 7. Xylocaine 5% ointment topical b.i.d. 8. Prinivil 5 mg q.h.s. 9. Nitrostat 0.4 sublingual q.5h p.r.n. 10.Brilinta 90 mg p.o. b.i.d. 11.Lipitor 40 mg q.h.s. 12.NovoLog 10 units subcu a.c. t.i.d. 13.Lopressor 25 mg p.o. b.i.d., reduced dose. 14.Requip 4 mg p.o. t.i.d., decreased from 3 mg p.o. t.i.d. Discontinued medications above. FOLLOWUP: Follow up with Dr. Calles in 2 weeks. Follow up with Dr. Gaye Barrett in 3 days. Discussion and discharge planning more than 35 minutes. MMODL / IJN: [id number] /
== END 2017-08-14 15:55 | disposition home or self-care (01) | DRG 92 ==
LOC: EC 18:46 → 6SEL 21:35 → OBSVTOIN 08-13 14:03 → 3SUR 08-13 16:50
PROVIDERS: ADMIT Hospitalist; ATTEND Hospitalist
DX: G92 Toxic encephalopathy (principal); E87.0 Hyperosmolality and hypernatremia; G91.2 (Idiopathic) normal pressure hydrocephalus; T42.8X5A Adverse effect of antiparkinsonism drugs and other central muscle-tone depressants, initial encounter; T43.015A Adverse effect of tricyclic antidepressants, initial encounter; T46.6X5A Adverse effect of antihyperlipidemic and antiarteriosclerotic drugs, initial encounter; T45.0X5A Adverse effect of antiallergic and antiemetic drugs, initial encounter; T43.595A Adverse effect of other antipsychotics and neuroleptics, initial encounter; E03.9 Hypothyroidism, unspecified; E11.65 Type 2 diabetes mellitus with hyperglycemia; E66.9 Obesity, unspecified; E78.5 Hyperlipidemia, unspecified; F32.9 Major depressive disorder, single episode, unspecified; G25.81 Restless legs syndrome; G31.84 Mild cognitive impairment of uncertain or unknown etiology; I10 Essential (primary) hypertension; I25.10 Atherosclerotic heart disease of native coronary artery without angina pectoris; M1A.9XX0 Chronic gout, unspecified, without tophus (tophi); R32 Unspecified urinary incontinence; I95.9 Hypotension, unspecified; R26.9 Unspecified abnormalities of gait and mobility; R47.1 Dysarthria and anarthria; Z68.32 Body mass index [BMI] 32.0-32.9, adult; Z79.4 Long term (current) use of insulin; Z79.82 Long term (current) use of aspirin; Z79.899 Other long term (current) drug therapy; Z79.890 Hormone replacement therapy; Z88.0 Allergy status to penicillin; Z95.5 Presence of coronary angioplasty implant and graft; Y92.009 Unspecified place in unspecified non-institutional (private) residence as the place of occurrence of the external cause
CPT/HCPCS: 36415; 70450; 70553; 71046; 80053; 80061; 82550; 82553; 83036; 83090; 84443; 84484; 85025; 85610; 85730; 93005; 93880; 95816; 99285

== ENCOUNTER 2017-08-20 11:40 | Inpatient (IN) | payer MEDICARE, OTHER ==
[2017-08-20] MEDS ORDERED: SODIUM CHLORIDE 0.9% 1,000 ML IV STA (12:18)
--- NOTE | 2017-08-20 12:25 | ED ---
Weakness HPI - General Chief complaint: Weakness Stated complaint: confusion, lethargic Time Seen by Provider: 08/20/17 12:00 Source: patient, RN notes reviewed, old records reviewed Mode of arrival: wheelchair Limitations: no limitations - History of Present Illness Initial comments: This is a 66-year-old female who was just discharged from the hospital 6 days ago appeared be admitted for a neurological evaluation who states this is she's been home she did have episodes of an night having generalized shakiness hallucinations and confusion episodes of slurred speech this is also per family members. She states is getting worse not better similar to what she had before she was evaluated last time. No trauma no fevers chills no nausea no vomiting no sweats she states is a dry mouth. Per family members she seemed to get better while in the hospital but when she resumed all of her home medications he symptoms seem to recur again. Max feels like she is falling to the left which is similar to what she had before she was evaluated last time. She' s been having slurred speech and she had with the previous evaluation also. No focal weakness however. MD Complaint: generalized weakness - Related Data Home Medications Medication Instructions Recorded Confirmed Aspirin [Adult Low Dose Aspirin EC] 81 mg PO HS 08/11/17 08/20/17 Colchicine [Colcrys] 0.6 mg PO BID 08/11/17 08/20/17 DULoxetine HCL [Cymbalta] 30 mg PO BID 08/11/17 08/20/17 Insulin Aspart [NovoLOG Flexpen] See Protocol SQ TID 08/11/17 08/20/17 Insulin Detemir [Levemir] 50 unit SQ HS 08/11/17 08/20/17 Levothyroxine Sodium [Synthroid] 100 mcg PO HS 08/11/17 08/20/17 Lidocaine 5% Oint [Xylocaine 5% 1 applic TOPICAL BID 08/11/17 08/20/17 Oint] Lisinopril [Prinivil] 5 mg PO HS 08/11/17 08/20/17 Nitroglycerin Sl Tabs [Nitrostat] 0.4 mg SUBLINGUAL Q5M PRN 08/11/17 08/20/17 Ticagrelor [Brilinta] 90 mg PO BID 08/11/17 08/20/17 Previous Rx's Medication Instructions Recorded Atorvastatin [Lipitor] 40 mg PO HS #30 tab 08/14/17 Insulin Aspart [NovoLOG 10 unit SQ AC-TID vial 08/14/17 (formulary)] Metoprolol Tartrate [Lopressor] 25 mg PO BID #60 tab 08/14/17 rOPINIRole HCL [Requip] 1 mg PO TID #60 tab 08/14/17 Allergies Allergy/AdvReac Type Severity Reaction Status Date / Time Penicillins Allergy Rash/Hives Verified 08/20/17 12:20 Review of Systems ROS Statement: Those systems with pertinent positive or pertinent negative responses have been documented in the HPI. ROS Other: All systems not noted in ROS Statement are negative. 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 History of Any Multi-Drug Resistant Organisms: None Reported Past Surgical History: Heart Catheterization With Stent, Orthopedic Surgery, Tubal Ligation Additional Past Surgical History / Comment(s): CARDIAC CATH with 3 stents placed Past Anesthesia/Blood Transfusion Reactions: No Reported Reaction Date of Last Stent Placement:: 04/2017 Past Psychological History: Depression Smoking Status: Never smoker Past Alcohol Use History: Occasional Past Drug Use History: None Reported - Past Family History Father History Unknown: Yes Mother History Unknown: Yes General Exam - General Exam Comments Initial Comments: This is a well-developed well-nourished awake alert oriented 3 female Limitations: no limitations General appearance: alert, in no apparent distress Head exam: Present: atraumatic, normocephalic, normal inspection Eye exam: Present: normal appearance, PERRL, EOMI. Absent: scleral icterus, conjunctival injection, periorbital swelling ENT exam: Present: mucous membranes dry Neck exam: Present: normal inspection. Absent: tenderness, meningismus, lymphadenopathy Respiratory exam: Present: normal lung sounds bilaterally. Absent: respiratory distress, wheezes, rales, rhonchi, stridor Cardiovascular Exam: Present: normal rhythm, tachycardia GI/Abdominal exam: Present: soft, normal bowel sounds. Absent: distended, tenderness, guarding, rebound, rigid Extremities exam: Present: normal inspection, full ROM, normal capillary refill. Absent: tenderness, pedal edema, joint swelling, calf tenderness Back exam: Present: normal inspection Neurological exam: Present: alert, oriented X3, CN II-XII intact Psychiatric exam: Present: normal affect, normal mood Skin exam: Present: warm, dry, intact, normal color. Absent: rash Course Vital Signs 08/20/17 08/20/17 11:49 13:22 Temperature 98.5 F Pulse Rate 111 H 91 Respiratory 20 16 Rate Blood Pressure 162/77 164/81 O2 Sat by Pulse 99 99 Oximetry EKG Findings - EKG Results: EKG: interpreted by ERMD, sinus rhythm (Sinus tachycardia rate of 103. Interval 156 QRS duration 96 QT since QTC of 358/468 LVH nonspecific inferior changes) Medical Decision Making - Medical Decision Making I did discuss findings with patient family members were present as well as Dr. Ibarra. Patient evaluation thus far shows some dehydration as well as hypomagnesemia the intermittent confusional states are*unexplained patient will be admitted for further evaluation - Lab Data Result diagrams: 08/20/17 12:08 08/20/17 12:08 Lab Results 08/20/17 08/20/17 08/20/17 Range/Units 12:08 12:08 12:08 WBC 5.1 (3.8-10.6) k/uL RBC 4.38 (3.80-5.40) m/uL Hgb 13.1 (11.4-16.0) gm/dL Hct 38.2 (34.0-46.0) % MCV 87.2 (80.0-100.0) fL MCH 29.9 (25.0-35.0) pg MCHC 34.3 (31.0-37.0) g/dL RDW 14.2 (11.5-15.5) % Plt Count 149 L (150-450) k/uL Neutrophils % 61 % Lymphocytes % 28 % Monocytes % 8 % Eosinophils % 0 % Basophils % 0 % Neutrophils # 3.1 (1.3-7.7) k/uL Lymphocytes # 1.4 (1.0-4.8) k/uL Monocytes # 0.4 (0-1.0) k/uL Eosinophils # 0.0 (0-0.7) k/uL Basophils # 0.0 (0-0.2) k/uL PT (9.0-12.0) sec INR (<1.2) APTT (22.0-30.0) sec Sodium (137-145) mmol/L Potassium (3.5-5.1) mmol/L Chloride (98-107) mmol/L Carbon Dioxide (22-30) mmol/L Anion Gap mmol/L BUN (7-17) mg/dL Creatinine (0.52-1.04) mg/dL Est GFR (CKD-EPI)AfAm (>60 ml/min/1.73 sqM) Est GFR (CKD-EPI)NonAf (>60 ml/min/1.73 sqM) Glucose (74-99) mg/dL Calcium (8.4-10.2) mg/dL Phosphorus (2.5-4.5) mg/dL Magnesium (1.6-2.3) mg/dL Total Bilirubin (0.2-1.3) mg/dL AST (14-36) U/L ALT (9-52) U/L Alkaline Phosphatase (38-126) U/L Ammonia <9 (<30) umol/L Total Creatine Kinase 261 H (30-135) U/L CK-MB (CK-2) 7.6 H* (0.0-2.4) ng/mL CK-MB (CK-2) Rel Index 2.9 Troponin I <0.012 (0.000-0.034) ng/mL Total Protein (6.3-8.2) g/dL Albumin (3.5-5.0) g/dL TSH (0.465-4.680) mIU/L Urine Color Urine Appearance (Clear) Urine pH (5.0-8.0) Ur Specific [place] (1.001-1.035) Urine Protein (Negative) Urine Glucose (UA) (Negative) Urine Ketones (Negative) Urine Blood (Negative) Urine Nitrite (Negative) Urine Bilirubin (Negative) Urine Urobilinogen (<2.0) mg/dL Ur Leukocyte Esterase (Negative) Urine RBC (0-5) /hpf Urine WBC (0-5) /hpf Ur Squamous Epith Cells (0-4) /hpf Urine Bacteria (None) /hpf Urine Mucus (None) /hpf 08/20/17 08/20/17 08/20/17 Range/Units 12:08 12:08 13:05 WBC (3.8-10.6) k/uL RBC (3.80-5.40) m/uL Hgb (11.4-16.0) gm/dL Hct (34.0-46.0) % MCV (80.0-100.0) fL MCH (25.0-35.0) pg MCHC (31.0-37.0) g/dL RDW (11.5-15.5) % Plt Count (150-450) k/uL Neutrophils % % Lymphocytes % % Monocytes % % Eosinophils % % Basophils % % Neutrophils # (1.3-7.7) k/uL Lymphocytes # (1.0-4.8) k/uL Monocytes # (0-1.0) k/uL Eosinophils # (0-0.7) k/uL Basophils # (0-0.2) k/uL PT 10.9 (9.0-12.0) sec INR 1.1 (<1.2) APTT 26.6 (22.0-30.0) sec Sodium 142 (137-145) mmol/L Potassium 4.2 (3.5-5.1) mmol/L Chloride 103 (98-107) mmol/L Carbon Dioxide 26 (22-30) mmol/L Anion Gap 13 mmol/L BUN 17 (7-17) mg/dL Creatinine 0.70 (0.52-1.04) mg/dL Est GFR (CKD-EPI)AfAm >90 (>60 ml/min/1.73 sqM) Est GFR (CKD-EPI)NonAf 90 (>60 ml/min/1.73 sqM) Glucose 267 H (74-99) mg/dL Calcium 9.9 (8.4-10.2) mg/dL Phosphorus 3.1 (2.5-4.5) mg/dL Magnesium 1.3 L (1.6-2.3) mg/dL Total Bilirubin 0.9 (0.2-1.3) mg/dL AST 42 H (14-36) U/L ALT 54 H (9-52) U/L Alkaline Phosphatase 95 (38-126) U/L Ammonia (<30) umol/L Total Creatine Kinase (30-135) U/L CK-MB (CK-2) (0.0-2.4) ng/mL CK-MB (CK-2) Rel Index Troponin I (0.000-0.034) ng/mL Total Protein 6.5 (6.3-8.2) g/dL Albumin 4.2 (3.5-5.0) g/dL TSH 2.100 (0.465-4.680) mIU/L Urine Color Yellow Urine Appearance Cloudy H (Clear) Urine pH 5.5 (5.0-8.0) Ur Specific [place] 1.021 (1.001-1.035) Urine Protein Trace H (Negative) Urine Glucose (UA) 2+ H (Negative) Urine Ketones Negative (Negative) Urine Blood Moderate H (Negative) Urine Nitrite Negative (Negative) Urine Bilirubin Negative (Negative) Urine Urobilinogen <2.0 (<2.0) mg/dL Ur Leukocyte Esterase Moderate H (Negative) Urine RBC 124 H (0-5) /hpf Urine WBC 10 H (0-5) /hpf Ur Squamous Epith Cells 10 H (0-4) /hpf Urine Bacteria Rare H (None) /hpf Urine Mucus Occasional H (None) /hpf - Radiology Data Radiology results: report reviewed, image reviewed Disposition Clinical Impression: Encephalopathy, Dehydration Disposition: ADMITTED IP TO THIS [facility] Condition: Stable Referrals: Gaye Barrett MD [Primary Care Provider] - 1-2 days
[2017-08-20 12:37] LABS: Basophils % (A) 0 %; Eosinophils % (A) 0 %; HCT 38.2 % (34.0-46.0); HGB 13.1 gm/dL (11.4-16.0); Lymphocytes # (A) 1.4 k/uL (1.0-4.8); Lymphocytes % (A) 28 %; MCH 29.9 pg (25.0-35.0); MCHC 34.3 g/dL (31.0-37.0); MCV 87.2 fL (80.0-100.0); Mean Platelet Volume 8.5; Monocytes # (A) 0.4 k/uL (0-1.0); Monocytes % (A) 8 %; Neutrophils # (A) 3.1 k/uL (1.3-7.7); Neutrophils % (A) 61 %; Platelet Count 149 k/uL (150-450); RBC 4.38 m/uL (3.80-5.40); RDW 14.2 % (11.5-15.5); WBC 5.1 k/uL (3.8-10.6)
[2017-08-20 12:48] LABS: ALT 54 U/L (9-52); AST 42 U/L (14-36); Albumin 4.2 g/dL (3.5-5.0); Alkaline Phosphatase 95 U/L (38-126); Anion Gap 13 mmol/L; Blood Urea Nitrogen 17 mg/dL (7-17); Calcium 9.9 mg/dL (8.4-10.2); Carbon Dioxide 26 mmol/L (22-30); Chloride 103 mmol/L (98-107); Glucose 267 mg/dL (74-99); Magnesium 1.3 mg/dL (1.6-2.3); Phosphorus 3.1 mg/dL (2.5-4.5); Potassium 4.2 mmol/L (3.5-5.1); Sodium 142 mmol/L (137-145); Total Bilirubin 0.9 mg/dL (0.2-1.3); Total Protein 6.5 g/dL (6.3-8.2)
[2017-08-20 12:56] LABS: Creatine Kinase 261 U/L (30-135)
[2017-08-20 12:57] LABS: INR 1.1 (<1.2); Partial Thromboplastin Time 26.6 sec (22.0-30.0); Prothrombin Time 10.9 sec (9.0-12.0)
[2017-08-20 13:09] LABS: Troponin I <0.012 ng/mL (0.000-0.034)
[2017-08-20 13:11] LABS: Creatine Kinase MB 7.6 ng/mL (0.0-2.4)
[2017-08-20 13:29] LABS: Appearance,Urine Cloudy (Clear); Bacteria,Urine Rare /hpf; Bilirubin,Urine Negative (Negative); Blood,Urine Moderate (Negative); Color,Urine Yellow; Glucose,Urine (UA) 2+ (Negative); Ketones,Urine Negative (Negative); Leukocyte Esterase,Urine Moderate (Negative); Mucus,Urine Occasional /hpf; Nitrite,Urine Negative (Negative); PH, Urine 5.5 (5.0-8.0); Protein,Urine Trace (Negative); RBC,Urine 124 /hpf (0-5); Specific Gravity,Urine 1.021 (1.001-1.035); Squamous Epithelial Cell,Urine 10 /hpf (0-4); Urobilinogen,Urine <2.0 mg/dL (<2.0); WBC,Urine 10 /hpf (0-5)
--- NOTE | 2017-08-20 13:31 | CT ---
EXAMINATION TYPE: CT brain wo con DATE OF EXAM: 08/20/2017 COMPARISON: 08/14/2017 HISTORY: Confused, Lethargic CT DLP: 1108.[address] of the brain was performed. The ventricles, basal cisterns and sulci overlying the cerebral convexities demonstrate moderate enla rgement. There is no evidence for intracranial hemorrhage or sulcal effacement. There is decreased attenuation about the periventricular white matter and deep white matter of both c erebral hemispheres, compatible with chronic small vessel ischemia. Differential diagnosis does inclu de demyelination. No mass effects are seen.No midline shift. Osseous calvarium is intact. If symptoms persist consider MRI. IMPRESSION: 1. Age related atrophic and chronic small vessel ischemic change without acute intracranial process s een at this time.
--- NOTE | 2017-08-20 13:33 | XR ---
EXAMINATION TYPE: XR chest 2V DATE OF EXAM: 08/20/2017 COMPARISON: 08/11/2017 HISTORY: Shortness of breath TECHNIQUE: Frontal and lateral views of the chest are obtained. FINDINGS: Scattered senescent parenchymal changes noted. No evidence for infiltrate. No evidence for atelectasis. Heart size is stable. Mediastinal structures are stable and grossly unremarkable. No evidence for hilar prominence. Degenerative changes dorsal spine. IMPRESSION: 1. No evidence for acute pulmonary disease. Examination limited by poor inspiration.
[2017-08-20] MEDS ORDERED: MAGNESIUM SULFATE-D5W PMX 1 GM in DEXTROSE/WATER 1 100ML.BAG IVPB ONE (13:51)
[2017-08-20] MEDS ORDERED: NALOXONE 0.4 MG/ML 1 ML VIAL IV PRN (14:56)
[2017-08-20] MEDS ORDERED: NITROGLYCERIN SL TABS 0.4 MG TAB SUBLINGUAL PRN (15:00)
[2017-08-20] MEDS: SODIUM CHLORIDE 0.9% 1,000 ML IV SCH (16:18)
[2017-08-20 16:35] LABS: Glucose,Whole Blood 214 mg/dL (75-99)
[2017-08-20] MEDS: INSULIN ASPART 100 UNIT/ML 1 ML 10 ML VIAL SQ SCH ×3 (18:00→21:12)
--- NOTE | 2017-08-20 19:08 | HP ---
HISTORY AND PHYSICAL DATE OF SERVICE: 08/20/2017 CHIEF COMPLAINTS: Confusion, weakness and lethargy. HISTORY OF PRESENT ILLNESS: This 66-year-old woman with a past medical history of multiple medical problems, including diabetes mellitus, type 2, depression, hypertension, hypothyroidism, being followed by Dr. Barrett in the outpatient setting, was recently admitted with metabolic encephalopathy as well as change in mental status which was thought to be medication- induced. The patient was treated symptomatically. Patient improved significantly. Patient went home. Subsequently the patient had episodes of confusion, generalized weakness, some difficulty in walking, slurred speech, and the patient was taken back to [facility] and admitted for further evaluation and treatment. A recent brain MRI done on 08/13/2017 showed degenerative changes and non-specific white matter changes. There is no history of any fever, rigor or chills. No history of headache, loss of consciousness, seizures. The possibility of hydrocephalus was also being questioned on the recent MRI. PAST MEDICAL HISTORY: 1. History of diabetes mellitus. 2. History of CAD and stent. 3. History of DJD. MEDICATIONS PRIOR TO ADMISSION: 1. Requip 1 mg p.o. t.i.d. 2. Brilinta 90 mg p.o. b.i.d. 3. Nitrostat 0.4 mg sublingually p.r.n. 4. Lopressor 20 mg b.i.d. 5. Prinivil 5 mg p.o. at bedtime. 6. Xylocaine 5% one application topically b.i.d. 7. Synthroid 100 mcg p.o. at bedtime. 8. Levemir 50 mg at bedtime. 9. NovoLog FlexPen t.i.d. 10.NovoLog 10 units t.i.d. 11.Cymbalta 30 mg b.i.d. 12.Colcrys 0.6 b.i.d. 13.Lipitor 40 mg at bedtime. 14.Aspirin 81 mg at bedtime. ALLERGIES: PENICILLIN. FAMILY HISTORY: History of family. SOCIAL HISTORY: No history of smoking. No history of alcohol intake. REVIEW OF SYSTEMS: ENT: Diminished hearing. Diminished vision. CARDIOVASCULAR SYSTEM: No angina, palpitations. RESPIRATORY SYSTEM: No cough, hemoptysis. GI: No nausea, vomiting. : No dysuria or retention. NERVOUS SYSTEM: As mentioned earlier. ALLERGY/IMMUNOLOGY: No asthma, hayfever. MUSCULOSKELETAL: As mentioned earlier. HEMATOLOGY/ONCOLOGY: No history of anemia. ENDOCRINE: History of diabetes and hypothyroidism present. CONSTITUTIONAL: As mentioned earlier. DERMATOLOGY: Negative. RHEUMATOLOGY: Negative. PSYCHIATRY: As mentioned earlier. PHYSICAL EXAMINATION: Patient is alert and oriented x3. Pulse 79, blood pressure 158/29, respiration 20, temperature 97.8, pulse ox 100% on 2 L. HEENT: Conjunctivae normal. Oral mucosa moist. NECK: No jugular venous distention. No carotid bruit. No lymph node enlargement. CARDIOVASCULAR SYSTEM: S1, S2 muffled. No S3. No S4. RESPIRATORY SYSTEM: Breath sounds diminished at the bases. No rhonchi. No crackles. ABDOMEN: Soft, non-tender. No mass palpable. LEGS: No edema. No swelling. NERVOUS SYSTEM: Higher functions as mentioned earlier. Moves all 4 limbs. Mild diffuse weakness. Mild diffuse tremors present. Otherwise no sensory abnormalities. LYMPHATICS: No lymph node palpable in neck, axillae or groin. SKIN: No ulcer, rash, bleeding. JOINTS: No active deforming arthropathy. LABS: CBC platelets 149. Glucose 214. Magnesium 1.3. UA noted. ASSESSMENT: 1. Confusion, weakness; possibly metabolic encephalopathy, possibly medication- induced. 2. Rule out hydrocephalus. 3. Rule out transient ischemic attack. 4. Diabetes mellitus, type 2. 5. Coronary artery disease, stent. 6. Depression. 7. Chronic restless legs syndrome. 8. Hypertension. 9. Hypothyroidism. 10.Chronic gout. 11.Obesity with body mass index of 30. 12.Hypomagnesemia. RECOMMENDATIONS AND DISCUSSION: In this 66-year-old woman who presented with multiple complex medical issues, we will monitor the patient closely, continue the current medications, continue with symptomatic treatment. PT/OT evaluation. Neurology evaluation. Otherwise, the MRI has been done recently. I would also recommend evaluating the patient for possible ECF rehab after evaluating the home situation. Prognosis is guarded. Further recommendations to follow. Discussed with the patient. MMODL / IJN: [id number] / MTDD
--- NOTE | 2017-08-20 19:55 | P.CNNES ---
History of Present Illness Consult date: 08/20/17 Reason for Consult: Patient with slurred speech and episodic confusion. History of Present Illness: This patient is a 66-year-old right-handed white female who was just recently discharged from the [facility] 7 days ago after being evaluated for symptoms suggesting acute stroke. Patient was admitted on 2017 for evaluation of slurred speech. She was seen by Dr. Calles and underwent extensive testing including EEG which was normal and an MRI of the brain. Her MRI of the brain revealed evidence of degenerative change with a central component of ventriculomegaly raising the possibility of normal pressure hydrocephalus. Nonspecific white matter changes were also noted as well. This MRI was completed on 08/13/2017. Patient was discharged home and according to the patient and her who is at bedside her symptoms really became worse. She is having more episodes of confusion and slurred speech. She has been very shaky and is been having great difficulty with her cognitive functioning at home. According to the she has been falling frequently as well. She has not had any recent fever or chills. She apparently during her last admission had some of the clinical findings of normal pressure hydrocephalus including confusional state, urinary incontinence, and gait apraxia. According to the she has had multiple falls at home. She is unable to ambulate unless she has assistance and uses a walker. is very reluctant to leave her alone due to the risk of falls. Due to her worsening symptoms she was brought back to the emergency room today. states that they have a follow-up appointment at the end of August. He feels her symptoms unfortunately are not getting any better and that was his reason for bringing her back to the emergency room today. She was evaluated in the ER by Dr. Moreau. She was sent for a computed tomography scan of the brain which revealed age related atrophy and chronic small vessel ischemic changes. No acute intracranial process was noted. The patient apparently has episodes where her cognition is quite lucid. however feels she is still having episodes of intermittent confusion. She did undergo an EEG during her last admission which was reported normal. Patient has not undergone any physical therapy since her last visit. According to the patient she had been admitted by her primary care physician Dr. Barrett to [facility] on 3 separate occasions without any definitive diagnosis. Apparently she has had multiple hospital admissions this year. Patient may best be treated with some physical therapy and referral to a major tertiary center such as [facility] for neurosurgical evaluation of NPH. The patient states that her primary care physician Dr. Barrett may also be able to refer her to a specialist at [facility]. This could also be done as outpatient. At this time her MRI of the brain that was done on 08/13/2017 failed to reveal any evidence of acute stroke. Her speech impairment at this time is still unclear in etiology. We will work with physical therapy assessment for this patient and see if this will help improve her overall gait. Speech therapy will also be consulted. Her overall prognosis at this time remains very guarded. Case was discussed at length today with the patient and her at bedside. All their questions were answered. Neurology is now been consulted for further evaluation and recommendations. Review of Systems Constitutional: Denies chills, Denies fever Eyes: denies blurred vision, denies pain Ears, nose, mouth and throat: Denies headache, Denies sore throat Cardiovascular: Denies chest pain, Denies shortness of breath Respiratory: Denies cough Gastrointestinal: Denies abdominal pain, Denies diarrhea, Denies nausea, Denies vomiting Genitourinary: Denies dysuria, Denies hematuria Musculoskeletal: Denies myalgias Integumentary: Denies pruritus, Denies rash Neurological: Reports balance difficulties, Reports change in mentation, Reports change in speech, Reports confusion, Reports gait dysfunction, Reports memory loss, Reports motor disturbance, Reports tremors, Denies numbness, Denies weakness Psychiatric: Denies anxiety, Denies depression Endocrine: Denies fatigue, Denies weight change Past Medical History Past Medical History: Chest Pain / Angina, Diabetes Mellitus Additional Past Medical History / Comment(s): [facility] History of Any Multi-Drug Resistant Organisms: None Reported Past Surgical History: Heart Catheterization With Stent, Orthopedic Surgery, Tubal Ligation Additional Past Surgical History / Comment(s): CARDIAC CATH with 3 stents placed Past Anesthesia/Blood Transfusion Reactions: No Reported Reaction Date of Last Stent Placement:: 04/2017 Past Psychological History: Depression Smoking Status: Never smoker Past Alcohol Use History: Occasional Past Drug Use History: None Reported - Past Family History Father History Unknown: Yes Mother History Unknown: Yes Medications and Allergies Home Medications Medication Instructions Recorded Confirmed Type Aspirin [Adult Low Dose Aspirin EC] 81 mg PO HS 08/11/17 08/20/17 History Colchicine [Colcrys] 0.6 mg PO BID 08/11/17 08/20/17 History DULoxetine HCL [Cymbalta] 30 mg PO BID 08/11/17 08/20/17 History Insulin Aspart [NovoLOG Flexpen] See Protocol SQ TID 08/11/17 08/20/17 History Insulin Detemir [Levemir] 50 unit SQ HS 08/11/17 08/20/17 History Levothyroxine Sodium [Synthroid] 100 mcg PO HS 08/11/17 08/20/17 History Lidocaine 5% Oint [Xylocaine 5% 1 applic TOPICAL BID 08/11/17 08/20/17 History Oint] Lisinopril [Prinivil] 5 mg PO HS 08/11/17 08/20/17 History Nitroglycerin Sl Tabs [Nitrostat] 0.4 mg SUBLINGUAL Q5M PRN 08/11/17 08/20/17 History Ticagrelor [Brilinta] 90 mg PO BID 08/11/17 08/20/17 History Atorvastatin [Lipitor] 40 mg PO HS #30 tab 08/14/17 08/20/17 Rx Insulin Aspart [NovoLOG 10 unit SQ AC-TID vial 08/14/17 08/20/17 Rx (formulary)] Metoprolol Tartrate [Lopressor] 25 mg PO BID #60 tab 08/14/17 08/20/17 Rx rOPINIRole HCL [Requip] 1 mg PO TID #60 tab 08/14/17 08/20/17 Rx Allergies Allergy/AdvReac Type Severity Reaction Status Date / Time Penicillins Allergy Rash/Hives Verified 08/20/17 12:20 Physical Examination - Vital Signs Vital Signs: Vital Signs Temp Pulse Pulse Resp BP BP Pulse Ox 08/20/17 16:36 97.9 F 79 20 158/89 100 08/20/17 16:18 97.8 F 89 16 175/85 95 08/20/17 14:52 89 16 160/95 99 08/20/17 13:22 91 16 164/81 99 08/20/17 11:49 98.5 F 111 H 20 162/77 99 Intake and Output 08/20/17 08/20/17 08/20/17 06:59 14:59 22:59 Other: Weight 89.358 kg - Constitutional General appearance: average body habitus, cooperative - EENT EENT: PERRL, mucous membranes moist - Respiratory Respiratory: lungs clear, normal breath sounds - Cardiovascular Cardiovascular: regular rate, normal S1, normal S2 Extremities: no peripheral edema bilaterally - Gastrointestinal Gastrointestinal: normoactive bowel sounds - Integumentary Integumentary: normal - Neurologic Cranial nerve examination: PERRL, EOMI, VFF, V1/V2/V3 grossly intact, face symmetric, tongue midline, intact gag reflex, intact corneal reflex, normal palatal elevation Speech examination: motor aphasia Sensorimotor examination: intact Motor examination - right side: 3/5: biceps, triceps, wrist flexion, wrist extension, force dispatcher, hip flexors, knee extensors, dorsiflexion, toe extension (EHL) , plantarflexion Motor examination - left side: 3/5: biceps, triceps, wrist flexion, wrist extension, force dispatcher, hip flexors, knee extensors, dorsiflexion, toe extension (EHL) , plantarflexion Detailed sensory examination: intact Reflex and gait examination: intact Reflexes: 1+: ankle, bicep, knee, tricep - Musculoskeletal Musculoskeletal: no pain - Psychiatric Psychiatric: mood/affect appropriate, cooperative Results - Laboratory Findings CBC and BMP: 08/20/17 12:08 08/20/17 12:08 Abnormal Lab Findings: Abnormal Labs 08/20/17 08/20/17 08/20/17 12:08 12:08 12:08 Plt Count 149 L Glucose 267 H POC Glucose (mg/dL) Magnesium 1.3 L AST 42 H ALT 54 H Total Creatine Kinase 261 H CK-MB (CK-2) 7.6 H* Urine Appearance Urine Protein Urine Glucose (UA) Urine Blood Ur Leukocyte Esterase Urine RBC Urine WBC Ur Squamous Epith Cells Urine Bacteria Urine Mucus 08/20/17 08/20/17 13:05 16:32 Plt Count Glucose POC Glucose (mg/dL) 214 H Magnesium AST ALT Total Creatine Kinase CK-MB (CK-2) Urine Appearance Cloudy H Urine Protein Trace H Urine Glucose (UA) 2+ H Urine Blood Moderate H Ur Leukocyte Esterase Moderate H Urine RBC 124 H Urine WBC 10 H Ur Squamous Epith Cells 10 H Urine Bacteria Rare H Urine Mucus Occasional H Assessment and Plan (1) Acute encephalopathy Current Visit: Yes Status: Acute Code(s): G93.40 - ENCEPHALOPATHY, UNSPECIFIED SNOMED Code(s): 21766818 (2) Transient cerebral ischemia Current Visit: No Status: Acute Code(s): G45.9 - TRANSIENT CEREBRAL ISCHEMIC ATTACK, UNSPECIFIED SNOMED Code(s): 731452086 (3) Idiopathic normal pressure hydrocephalus Current Visit: Yes Status: Acute Code(s): G91.2 - (IDIOPATHIC) NORMAL PRESSURE HYDROCEPHALUS SNOMED Code(s): 79754173 (4) Dehydration Current Visit: Yes Status: Acute Code(s): E86.0 - DEHYDRATION SNOMED Code( s): 00450914 Plan: This patient is a 66-year-old female who was just recently discharged from the [facility] about 1 week ago after being admitted for symptoms of slurred speech and possible stroke. She underwent an extensive evaluation for this condition and was seen by Dr. Calles. She underwent a routine EEG which was normal and also underwent MRI of the brain which revealed findings suggesting possible normal pressure hydrocephalus. She was discharged home however states that her symptoms were not getting better and the patient was worsening in terms of her anxiety and increase confusion. She was brought back to the emergency room today and was seen in the ER by Dr. Moreau. Repeat computed tomography scan of the brain was done and the results which noted above. She was readmitted today for further evaluation. She did show signs of acute encephalopathy. We will obtain a repeat EEG for further evaluation. We'll also obtain a physical therapy and speech therapy consultation. She does have evidence of mild encephalopathy with dehydration and hypomagnesemia all of these can be treated aggressively. Patient may have further workup as outpatient for NPH. She would like to be seen in the neurosurgery clinic at [facility]. Apparently she has contacted her primary care physician Dr. Barrett to help make these arrangements for her soon after discharge. We will continue to follow her closely during this admission. Her overall prognosis at this time remains very guarded. Case was discussed at length with the patient and her at bedside. All their questions were answered. Her overall prognosis as mentioned remains very guarded. Time with Patient: Greater than 30
[2017-08-20] MEDS: COLCHICINE 0.6 MG EACH PO SCH (20:23)
[2017-08-20] MEDS: TICAGRELOR 90 MG TAB PO SCH (20:23)
[2017-08-20] MEDS: DULoxetine HCL 30 MG CAPSULE.DR PO SCH (20:23)
[2017-08-20] MEDS: METOPROLOL TARTRATE 25 MG TAB PO SCH (20:24)
[2017-08-20] MEDS: HEPARIN SODIUM,PORCINE 5,000 UNIT/ML 1 ML VIAL SQ SCH (20:24)
[2017-08-20] MEDS: LIDOCAINE 5% OINTMENT 50 GM JAR TOPICAL SCH (20:25)
[2017-08-20] MEDS ORDERED: INSULIN DETEMIR 100 UNIT/ML 10 ML VIAL SQ SCH (21:00)
[2017-08-20] MEDS ORDERED: LISINOPRIL 5 MG TAB PO SCH (21:00)
[2017-08-20] MEDS ORDERED: ASPIRIN 81 MG PO SCH (21:00)
[2017-08-20] MEDS ORDERED: ATORVASTATIN 40 MG TAB PO SCH (21:00)
[2017-08-20] MEDS ORDERED: LEVOTHYROXINE 100 MCG TAB PO SCH (21:00)
[2017-08-20 21:15] LABS: Glucose,Whole Blood 120 mg/dL (75-99)
[2017-08-21 03:22] LABS: Amphetamine Screen,Urine Not Detected (NotDetected); Barbiturate Screen,Urine Not Detected (NotDetected); Benzodiazepines Screen,Urine Not Detected (NotDetected); Cocaine Screen,Urine Not Detected (NotDetected); Methadone Screen, Urine Not Detected (NotDetected); Opiate Screen,Urine Not Detected (NotDetected); Oxycodone Screen, Urine Not Detected (NotDetected); Phencyclidine Screen,Urine Not Detected (NotDetected); Tricyclic Antidepressant,Urine Detected (NotDetected); Urn Cannabinoid Scrn Not Detected (NotDetected)
[2017-08-21] MEDS: SODIUM CHLORIDE 0.9% 1,000 ML IV SCH ×2 (05:25→15:37)
[2017-08-21 07:09] LABS: Glucose,Whole Blood 239 mg/dL (75-99)
[2017-08-21] MEDS: LIDOCAINE 5% OINTMENT 50 GM JAR TOPICAL SCH (07:36)
[2017-08-21] MEDS: INSULIN ASPART 100 UNIT/ML 1 ML 10 ML VIAL SQ SCH ×6 (07:36→18:01)
[2017-08-21] MEDS: HEPARIN SODIUM,PORCINE 5,000 UNIT/ML 1 ML VIAL SQ SCH (07:36)
[2017-08-21] MEDS: DULoxetine HCL 30 MG CAPSULE.DR PO SCH (07:37)
[2017-08-21] MEDS: COLCHICINE 0.6 MG EACH PO SCH (07:37)
[2017-08-21 07:38] LABS: Basophils % (A) 0 %; Eosinophils % (A) 0 %; HCT 36.9 % (34.0-46.0); HGB 12.1 gm/dL (11.4-16.0); Lymphocytes # (A) 1.6 k/uL (1.0-4.8); Lymphocytes % (A) 31 %; MCH 29.1 pg (25.0-35.0); MCHC 32.8 g/dL (31.0-37.0); MCV 88.7 fL (80.0-100.0); Mean Platelet Volume 8.3; Monocytes # (A) 0.3 k/uL (0-1.0); Monocytes % (A) 5 %; Neutrophils # (A) 3.1 k/uL (1.3-7.7); Neutrophils % (A) 60 %; Platelet Count 158 k/uL (150-450); RBC 4.16 m/uL (3.80-5.40); RDW 14.4 % (11.5-15.5); WBC 5.1 k/uL (3.8-10.6)
[2017-08-21] MEDS: METOPROLOL TARTRATE 25 MG TAB PO SCH (07:44)
[2017-08-21] MEDS: TICAGRELOR 90 MG TAB PO SCH (07:45)
[2017-08-21 07:57] LABS: Anion Gap 10 mmol/L; Blood Urea Nitrogen 15 mg/dL (7-17); Calcium 9.2 mg/dL (8.4-10.2); Carbon Dioxide 26 mmol/L (22-30); Chloride 105 mmol/L (98-107); Glucose 224 mg/dL (74-99); Magnesium 1.4 mg/dL (1.6-2.3); Potassium 4.2 mmol/L (3.5-5.1); Sodium 141 mmol/L (137-145)
[2017-08-21] MEDS ORDERED: FOLIC ACID 1 MG TAB PO SCH (12:00)
[2017-08-21] MEDS ORDERED: MULTIVITAMINS, THERA 1 EACH TAB PO SCH (12:00)
[2017-08-21] MEDS ORDERED: THIAMINE 100 MG TAB PO SCH (12:00)
[2017-08-21 12:10] LABS: Glucose,Whole Blood 177 mg/dL (75-99)
[2017-08-21] MEDS: MAGNESIUM SULFATE-D5W PMX 1 GM in DEXTROSE/WATER 1 100ML.BAG IVPB SCH ×3 (12:35→15:36)
[2017-08-21 15:54] VITALS: BP 111/70; PULSE 70; RESP 16; TEMP 97.2
[2017-08-21 17:35] LABS: Glucose,Whole Blood 196 mg/dL (75-99)
--- NOTE | 2017-08-21 17:45 | EEG ---
ELECTROENCEPHALOGRAM REPORT DATE OF EE08/21/2017. REFERRING PHYSICIAN: Dr. Ibarra. ELECTROENCEPHALOGRAPHIC EXAMINATION REPORT: INDICATION FOR EXAMINATION: This patient is a 66-year-old female being evaluated for normal pressure hydrocephalus. Patient with worsening symptoms of confusion and slurred speech. AGE: [age]. EEG FINDINGS: A routine 21 channel awake digital EEG recording was accomplished utilizing the 10-20 international system with bipolar and referential montages. The background activity in the most alert resting state consists of a low to medium amplitude, fairly well developed and well sustained 7-8 Hz activity over the posterior head regions. This posterior rhythm attenuates to eye opening. There is a small amount of low amplitude 18-20 Hz beta activity seen maximally over the anterior head regions. Muscle and movement artifact was observed on several occasions throughout the tracing. Hyperventilation was not performed. Photic stimulation at flash frequencies of 2-30 Hz produced a minimal occipital driving response. No epileptiform discharges were seen. IMPRESSION: This EEG is normal for the patient's age. The EEG failed to reveal any focal, lateralized, or epileptiform abnormalities. Clinical correlation is recommended. MMODL / IJN: [id number] /
--- NOTE | 2017-08-21 19:45 | DS ---
DISCHARGE SUMMARY FINAL DIAGNOSES: 1. Confusion, weakness, headache, rule out normal-pressure hydrocephalus. 2. Rule out metabolic encephalopathy or transient ischemic attack. 3. Diabetes mellitus type 2. 4. Coronary artery disease with stent. 5. Depression. 6. Chronic restless legs syndrome. 7. Hypertension. 8. Hypothyroid. 9. Gait dysfunction. 10.Chronic gout. 11.Obesity with a body mass index of 30. 12.Hypomagnesemia. DISCHARGE DISPOSITION: The patient will be discharged in stable with guarded prognosis. Total time taken 35 minutes. HISTORY OF PRESENT ILLNESS: This 66-year-old woman with a past medical history of multiple medical problems was admitted with confusion, weakness, headache as well as gait insufficiency. Patient also had a recent MRI and the possibility of normal-pressure hydrocephalus was considered. This was evaluated by Dr. Antoine. Because of lack of improvement, Dr. Antoine recommended referral to a tertiary care center and neurosurgery evaluation and the patient will be transferred to [facility] for further evaluation and treatment. Please note the MRI suggested possible normal-pressure hydrocephalus. EXAM: Vitals are stable. CARDIOVASCULAR: S1, S2 muffled. ABDOMEN: Soft. NERVOUS SYSTEM: No focal deficits. CURRENT MEDICATIONS: As follows: 1. Aspirin 81 mg daily. 2. Lipitor 40 mg q.h.s. 3. Colcrys 0.6 mg p.o. b.i.d. 4. Cymbalta 30 mg b.i.d. 5. Folic acid 1 mg daily. 6. Heparin 5 subcu b.i.d. 7. NovoLog 10 units a.c. t.i.d. 8. NovoLog scale. 9. Levemir 50 units subcu q.h.s. 10.Synthroid 100 mcg p.o. q.h.s. 11.Xylocaine local application. 12.Zestril 5 mg q.h.s. 13.Lopressor 25 mg p.o. b.i.d. 14.Multivitamin 1 p.o. daily. 15.Nitrostat 0.4 mg sublingual p.r.n. 16.Requip 1 mg p.o. t.i.d. 17.Vitamin B1 100 mg p.o. daily. 18.Brilinta 90 mg p.o. b.i.d. Once again, the patient will be discharged in stable condition with guarded prognosis. MITESHODL / IJN: [id number] /
--- NOTE | 2017-08-22 11:20 | P.PN ---
Subjective Progress Note Date: 08/21/17 This patient is a 66-year-old female who was admitted to hospital yesterday with symptoms of slurred speech, gait apraxia, and increased confusion. She was just recently admitted to Hospital a week ago and underwent extensive evaluation for stroke. She underwent a MRI of the brain which revealed evidence of possible normal pressure hydrocephalus. She was discharged home and was to follow-up palpation. Her symptoms worsen and she was readmitted yesterday. Patient continues to do fairly well but still has slurred speech and inability to ambulate. She states that her confusion is been about the same. Case was discussed today at length with Dr. Ibarra and . arrangements are being made to transfer this patient to a tertiary care center for further evaluation of normal pressure hydrocephalus. Patient has been accepted for transfer to [facility] neurology service for further evaluation later today. Patient otherwise seems to be doing about the same. We will continue close neurological follow-up with the patient and she is awaiting transfer to [facility] later today. Objective - Vital Signs Vital signs: Vital Signs Temp 97.2 F L 08/21/17 15:00 Pulse 70 08/21/17 15:00 Resp 16 08/21/17 15:00 BP 111/70 08/21/17 15:00 Pulse Ox 97 08/21/17 15:00 Intake & Output 08/20/17 08/21/17 08/21/17 18:59 06:59 18:59 Intake Total 700 Output Total 0 Balance 700 Weight 89.358 kg 89.358 kg Intake: Oral 700 Output: Urine 0 Other: # Voids 1 1 - Exam Physical examination: PHYSICAL EXAMINATION: Patient is resting comfortably in bed. VITAL SIGNS: Blood pressure is [112/70]. Heart rate is [70]. Respiration is [16] . Temperature is [97.2]. HEENT: Head is atraumatic, neck is supple, there were no carotid bruits. CHEST: Lungs are clear to auscultation and percussion. CARDIAC: S1, S2 normal rate and rhythm. There is no murmur. ABDOMEN: Soft and nontender. Bowel sounds are present. EXTREMITIES: There is no pedal edema. Peripheral pulses are present. Neurological examination: Patient's neurological examination is unchanged from yesterday. - Labs CBC & Chem 7: 08/21/17 07:10 08/21/17 07:10 Labs: Abnormal Lab Results - Last 24 Hours (Table) 08/20/17 08/21/17 08/21/17 Range/Units 21:10 02:55 07:05 Glucose (74-99) mg/dL POC Glucose (mg/dL) 120 H 239 H (75-99) mg/dL Magnesium (1.6-2.3) mg/dL U Tricyclic Antidepress Detected H (NotDetected) 08/21/17 08/21/17 Range/Units 07:10 12:08 Glucose 224 H (74-99) mg/dL POC Glucose (mg/dL) 177 H (75-99) mg/dL Magnesium 1.4 L (1.6-2.3) mg/dL U Tricyclic Antidepress (NotDetected) Microbiology - Last 24 Hours (Table) 08/21/17 02:55 Urine Culture - Preliminary Urine,Clean Catch Assessment and Plan (1) Acute encephalopathy Status: Acute Code(s): G93.40 - ENCEPHALOPATHY, UNSPECIFIED SNOMED Code(s): 72769382 (2) Transient cerebral ischemia Status: Acute Code(s): G45.9 - TRANSIENT CEREBRAL ISCHEMIC ATTACK, UNSPECIFIED SNOMED Code(s): 695138029 (3) Idiopathic normal pressure hydrocephalus Status: Acute Code(s): G91.2 - (IDIOPATHIC) NORMAL PRESSURE HYDROCEPHALUS SNOMED Code(s): 40415661 (4) Dehydration Status: Acute Code(s): E86.0 - DEHYDRATION SNOMED Code(s): 96704051 Plan: This patient is a 66-year-old female who was admitted to hospital with slurred speech and increased confusion and unsteady gait. She underwent MRI last week which revealed evidence of normal pressure hydrocephalus. Her symptoms were worsening and she was readmitted yesterday. She is being transferred to [facility] neurology service for further workup and management of normal pressure hydrocephalus. Arrangements are being made and she'll be transferred by EMS to [facility] once her bed is a sign. We have discussed the transfer today with the patient in detail. She is feeling much better now that she knows she will have further workup for the normal pressure hydrocephalus. We'll await the recommendations of the specialist that [facility] for and she may follow-up as outpatient as needed. Her overall prognosis at this time remains very guarded.
== END 2017-08-21 18:34 | disposition short-term general hospital (02) | DRG 56 ==
LOC: EC 11:40 → 4MS4W 14:56
PROVIDERS: ADMIT Hospitalist; ATTEND Hospitalist
DX: G91.2 (Idiopathic) normal pressure hydrocephalus (principal); G93.41 Metabolic encephalopathy; G45.9 Transient cerebral ischemic attack, unspecified; E03.9 Hypothyroidism, unspecified; E11.9 Type 2 diabetes mellitus without complications; E66.9 Obesity, unspecified; E83.42 Hypomagnesemia; E86.0 Dehydration; F32.9 Major depressive disorder, single episode, unspecified; G25.81 Restless legs syndrome; G93.89 Other specified disorders of brain; I10 Essential (primary) hypertension; I25.10 Atherosclerotic heart disease of native coronary artery without angina pectoris; M1A.9XX0 Chronic gout, unspecified, without tophus (tophi); M19.90 Unspecified osteoarthritis, unspecified site; R29.6 Repeated falls; Z68.30 Body mass index [BMI] 30.0-30.9, adult; Z79.4 Long term (current) use of insulin; Z79.82 Long term (current) use of aspirin; Z79.899 Other long term (current) drug therapy; Z79.890 Hormone replacement therapy; Z95.5 Presence of coronary angioplasty implant and graft; Z88.0 Allergy status to penicillin
CPT/HCPCS: 36415; 70450; 71046; 80048; 80053; 80306; 81001; 82140; 82550; 82553; 83735; 84100; 84443; 84484; 85025; 85610; 85730; 87040; 87086; 93005; 95816; 96361; 96365; 99285

== ENCOUNTER → 2019-11-16 | Outpatient (CLI) | payer MEDICARE, OTHER ==
--- NOTE | 2019-11-16 08:22 | US ---
EXAMINATION TYPE: US abdomen complete DATE OF EXAM: 11/16/2019 COMPARISON: NONE CLINICAL HISTORY: N20.2 calculus of kidney. Left flank pain and hematuria; prior left renal lithotrip sy EXAM MEASUREMENTS: Liver Length: 19.2 cm Gallbladder Wall: 0.2 cm CBD: 0.5 cm Spleen: 12.1 cm Right Kidney: 10.8x 5.6 x 5.2 cm Left Kidney: 9.1 x 3.9 x 4.9 cm Pancreas: hyperechoic Liver: enlarged and attenuated posteriorly suggests fatty liver Evidence for sonographic Blanca's sign: no CBD: wnl Spleen: wnl Right Kidney: No hydronephrosis or masses seen Left Kidney: two clusters of shadowing stones seen at mid and lower pole with larger cluster = 1.2 x 0.8 x 0.6cm at lower pole Upper IVC: wnl Abd Aorta: wnl IMPRESSION: 1. Probable fatty hepatic infiltration. 2. Nonobstructing calculi left kidney.
== END | disposition home or self-care (01) ==
LOC: RADUSWWP 06:48
PROVIDERS: ATTEND Physician Assistant Medical
DX: N20.0 Calculus of kidney (principal); N30.01 Acute cystitis with hematuria
CPT/HCPCS: 76700

== ENCOUNTER → 2019-11-30 | Outpatient (CLI) | payer MEDICARE, OTHER ==
--- NOTE | 2019-11-30 13:25 | CT ---
EXAMINATION TYPE: CT abdomen wo con DATE OF EXAM: 11/30/2019 COMPARISON: HISTORY: Kidney stones CT DLP: 633.20 mGycm Automated exposure control for dose reduction was used. TECHNIQUE: Helical acquisition of images was performed from the lung bases through the top of iliac crest to include entire abdomen. CONTRAST: Performed without Oral Contrast and without IV contrast. FINDINGS: Coronary artery calcifications are present. Lack of contrast could compromise sensitivity. There is a catheter present anterior to the liver which extends within the subcutaneous fat of the an terior lower chest and abdomen, possible ventriculoperitoneal shunt tubing, some thickening of the sc an anteriorly could be due to subcutaneous injections, correlate to exclude cellulitis. LUNG BASES: Some linear stranding is present at the lung bases, there may be some interstitial change or scarring, no pleural pericardial effusion. LIVER/GB: Liver is enlarged. Gallbladder is unremarkable.. PANCREAS: No significant abnormality is seen. SPLEEN: No significant abnormality is seen. ADRENALS: No significant abnormality is seen. KIDNEYS: Left kidney shows deformity possibly due to prior scarring. Lower pole calcification is pres ent with there is overlying cortical thinning, possible caliectasis, calcification measures approxima tely 17 mm. Calcifications are also present in the midpole towards the lower pole which may be parenc hymal. No right-sided calculus is evident Slight pelvic caliectasis is questioned. BOWEL: No significant abnormality is seen. LYMPH NODES: No significan abnormality is appreciated. OSSEOUS STRUCTURES: No significant abnormality is seen. FREE AIR: No Free Air visible ASCITES: None visible. RETROPERITONEAL ADENOPATHY: No Retroperitoneal Adenopathy visible. OTHER: Postop changes are noted to the lumbar spine, there is metallic hardware present status post p osterior fusion, degenerative disc changes are present in the visualized lumbar spine with associated laminectomies, facet arthropathy, there is a spinal curvature. IMPRESSION: LEFT RENAL CALCIFICATIONS DESCRIBED. CORONARY ARTERY DISEASE AND HEPATOMEGALY. POSTOP CHANGES.
== END | disposition home or self-care (01) ==
LOC: RADCTMAIN 09:31
PROVIDERS: ATTEND Urology
DX: R16.0 Hepatomegaly, not elsewhere classified (principal); Z98.890 Other specified postprocedural states; Z98.1 Arthrodesis status; Z88.0 Allergy status to penicillin
CPT/HCPCS: 74150

== ENCOUNTER 2019-12-27 07:07 | Inpatient (IN) | payer MEDICARE, OTHER ==
[2019-12-27] MEDS ORDERED: ASPIRIN 325 MG TAB PO STA ×2 (07:47→11:32)
--- NOTE | 2019-12-27 07:49 | ED ---
General Adult HPI - General Chief complaint: Chest Pain Stated complaint: Chest pain Time Seen by Provider: 12/27/19 07:20 Source: patient, RN notes reviewed, old records reviewed Mode of arrival: ambulatory Limitations: no limitations - History of Present Illness Initial comments: 69-year-old female with history of CAD, diabetes, hypertension and hyper lipidemia presenting for evaluation of chest discomfort which began at approximately 2 AM this morning. She is presenting for evaluation at 7:30 AM. Patient developed this chest discomfort while at rest, she take a sublingual nitroglycerin with improvement. She awoke several hours later with recurrent discomfort again took a nitroglycerin with some improvement. She presented to the emergency department with her third episode of chest discomfort. Radiate to her left shoulder.Denies associated nausea or vomiting. - Related Data Home Medications Medication Instructions Recorded Confirmed Aspirin [Adult Low Dose Aspirin EC] 81 mg PO HS 08/11/17 12/27/19 Colchicine [Colcrys] 0.6 mg PO DAILY 08/11/17 12/27/19 Insulin Detemir (Levemir) [Levemir] 38 unit SQ HS 08/11/17 12/27/19 Lidocaine 5% Oint [Xylocaine 5% 1 applic TOPICAL HS PRN 08/11/17 12/27/19 Oint] Nitroglycerin Sl Tabs [Nitrostat] 0.4 mg SUBLINGUAL Q5M PRN 08/11/17 12/27/19 Ticagrelor [Brilinta] 90 mg PO BID 08/11/17 12/27/19 Ascorbic Acid [Vitamin C] 500 mg PO DAILY 12/27/19 12/27/19 Atorvastatin Calcium [Lipitor] 80 mg PO HS 12/27/19 12/27/19 DULoxetine HCL [Cymbalta] 60 mg PO DAILY 12/27/19 12/27/19 Desloratadine [Clarinex] 5 mg PO DAILY 12/27/19 12/27/19 Docusate [Colace] 100 mg PO BID 12/27/19 12/27/19 Ezetimibe [Zetia] 10 mg PO DAILY 12/27/19 12/27/19 Fluticasone Nasal [place] [Flonase 2 spr EA NOSTRIL DAILY 12/27/19 12/27/19 Nasal [place]] Insulin Lispro [humaLOG Kwikpen] See Protocol SQ AC-TID 12/27/19 12/27/19 Isosorbide Mononitrate ER [Imdur] 30 mg PO DAILY 12/27/19 12/27/19 Levothyroxine Sodium [Synthroid] 112 mcg PO DAILY 12/27/19 12/27/19 Lisinopril [Zestril] 10 mg PO DAILY 12/27/19 12/27/19 Magnesium Oxide [Mag-Ox] 400 mg PO BID 12/27/19 12/27/19 Metoprolol Tartrate [Lopressor] 50 mg PO TID 12/27/19 12/27/19 Mirtazapine [Remeron] 15 mg PO HS 12/27/19 12/27/19 Multivitamins, Thera [Multivitamin 1 tab PO DAILY 12/27/19 12/27/19 (formulary)] Sennosides [Senna] 17.2 mg PO HS 12/27/19 12/27/19 hydrOXYzine HCL [Atarax] 10 mg PO DAILY 12/27/19 12/27/19 methocarbamoL [Robaxin] 750 mg PO QID PRN 12/27/19 12/27/19 rOPINIRole HCL [Requip] 4 mg PO TID 12/27/19 12/27/19 sitaGLIPtin PHOS/metFORMIN HCL 1 tab PO BID 12/27/19 12/27/19 [Janumet 50-1,000 mg Tablet] Allergies Allergy/AdvReac Type Severity Reaction Status Date / Time Penicillins Allergy Rash/Hives Verified 12/27/19 08:29 Review of Systems ROS Statement: Those systems with pertinent positive or pertinent negative responses have been documented in the HPI. ROS Other: All systems not noted in ROS Statement are negative. 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 History of Any Multi-Drug Resistant Organisms: None Reported Past Surgical History: Heart Catheterization With Stent, Orthopedic Surgery, Tubal Ligation Additional Past Surgical History / Comment(s): CARDIAC CATH with 3 stents placed Past Anesthesia/Blood Transfusion Reactions: No Reported Reaction Date of Last Stent Placement:: 04/2017 Past Psychological History: Depression Smoking Status: Never smoker Past Alcohol Use History: Occasional Past Drug Use History: None Reported - Past Family History Father History Unknown: Yes Mother History Unknown: Yes General Exam Limitations: no limitations General appearance: alert, in no apparent distress Head exam: Present: atraumatic, normocephalic Eye exam: Present: normal appearance, PERRL ENT exam: Present: normal exam Neck exam: Present: normal inspection. Absent: tenderness, meningismus Respiratory exam: Present: normal lung sounds bilaterally. Absent: respiratory distress, wheezes Cardiovascular Exam: Present: regular rate, normal rhythm GI/Abdominal exam: Present: soft. Absent: distended, tenderness Extremities exam: Present: normal inspection, normal capillary refill. Absent: pedal edema, calf tenderness Neurological exam: Present: alert, oriented X3, CN II-XII intact. Absent: motor sensory deficit Psychiatric exam: Present: normal affect, normal mood Skin exam: Present: warm, dry, intact. Absent: cyanosis, diaphoretic Course Vital Signs 12/27/19 07:13 Temperature 98.6 F Pulse Rate 97 Respiratory 18 Rate Blood Pressure 114/74 O2 Sat by Pulse 99 Oximetry EKG Findings - EKG Comments: EKG Findings:: EKG: Regular rhythm, no visualized P waves. Widened QRS at 132, left axis, right bundle branch block. Repeat EKG at 749, sinus rhythm with an initial rhythm strip similarity to previous EKG her the majority is sinus with a rate of 87, MI interval is 148, QRS duration is 96, QTC is 413, no ST segment elevation Medical Decision Making - Medical Decision Making 69-year-old female presenting with typical chest pain, history of CAD. Vital signs are stable. patient is comfortable at the time of my evaluation. chest x-ray is negative for acute cardiopulmonary findings. Patient has anormal CBC, she has CMP showing a blood sugar of 69and a troponin of 0.275. This is consistent with a non-ST segment elevated MS. I discussed case both with the admitting physician Dr. Adrian and with the commercial portfolio manager Dr. Ruiz. Echo has been ordered. Patient has been placed on heparin. - Lab Data Result diagrams: 12/27/19 07:45 12/27/19 07:45 Lab Results 12/27/19 12/27/19 12/27/19 Range/Units 07:45 07:45 07:45 WBC 7.9 (3.8-10.6) k/uL RBC 4.25 (3.80-5.40) m/uL Hgb 11.6 (11.4-16.0) gm/dL Hct 35.4 (34.0-46.0) % MCV 83.3 (80.0-100.0) fL MCH 27.2 (25.0-35.0) pg MCHC 32.7 (31.0-37.0) g/dL RDW 16.3 H (11.5-15.5) % Plt Count 153 (150-450) k/uL Neutrophils % 66 % Lymphocytes % 26 % Monocytes % 5 % Eosinophils % 0 % Basophils % 0 % Neutrophils # 5.2 (1.3-7.7) k/uL Lymphocytes # 2.1 (1.0-4.8) k/uL Monocytes # 0.4 (0-1.0) k/uL Eosinophils # 0.0 (0-0.7) k/uL Basophils # 0.0 (0-0.2) k/uL Anisocytosis Slight PT 9.5 (9.0-12.0) sec INR 0.9 (<1.2) APTT 22.4 (22.0-30.0) sec Sodium 139 (137-145) mmol/L Potassium 3.9 (3.5-5.1) mmol/L Chloride 106 (98-107) mmol/L Carbon Dioxide 26 (22-30) mmol/L Anion Gap 7 mmol/L BUN 16 (7-17) mg/dL Creatinine 0.79 (0.52-1.04) mg/dL Est GFR (CKD-EPI)AfAm 89 (>60 ml/min/1.73 sqM) Est GFR (CKD-EPI)NonAf 77 (>60 ml/min/1.73 sqM) Glucose 69 L (74-99) mg/dL Calcium 9.2 (8.4-10.2) mg/dL Magnesium 1.7 (1.6-2.3) mg/dL Total Bilirubin 0.6 (0.2-1.3) mg/dL AST 29 (14-36) U/L ALT 28 (4-34) U/L Alkaline Phosphatase 106 (38-126) U/L Troponin I (0.000-0.034) ng/mL Total Protein 6.3 (6.3-8.2) g/dL Albumin 3.8 (3.5-5.0) g/dL 12/27/19 Range/Units 07:45 WBC (3.8-10.6) k/uL RBC (3.80-5.40) m/uL Hgb (11.4-16.0) gm/dL Hct (34.0-46.0) % MCV (80.0-100.0) fL MCH (25.0-35.0) pg MCHC (31.0-37.0) g/dL RDW (11.5-15.5) % Plt Count (150-450) k/uL Neutrophils % % Lymphocytes % % Monocytes % % Eosinophils % % Basophils % % Neutrophils # (1.3-7.7) k/uL Lymphocytes # (1.0-4.8) k/uL Monocytes # (0-1.0) k/uL Eosinophils # (0-0.7) k/uL Basophils # (0-0.2) k/uL Anisocytosis PT (9.0-12.0) sec INR (<1.2) APTT (22.0-30.0) sec Sodium (137-145) mmol/L Potassium (3.5-5.1) mmol/L Chloride (98-107) mmol/L Carbon Dioxide (22-30) mmol/L Anion Gap mmol/L BUN (7-17) mg/dL Creatinine (0.52-1.04) mg/dL Est GFR (CKD-EPI)AfAm (>60 ml/min/1.73 sqM) Est GFR (CKD-EPI)NonAf (>60 ml/min/1.73 sqM) Glucose (74-99) mg/dL Calcium (8.4-10.2) mg/dL Magnesium (1.6-2.3) mg/dL Total Bilirubin (0.2-1.3) mg/dL AST (14-36) U/L ALT (4-34) U/L Alkaline Phosphatase (38-126) U/L Troponin I 0.275 H* (0.000-0.034) ng/mL Total Protein (6.3-8.2) g/dL Albumin (3.5-5.0) g/dL Critical Care Time Critical Care Time: Yes Total Critical Care Time: 35 Disposition Clinical Impression: Acute non-ST elevation myocardial infarction (NSTEMI) Disposition: ADMITTED IP TO THIS HOSP Condition: Stable Is patient prescribed a controlled substance at d/c from ED?: No Referrals: None,Stated [REFERRING] - 1-2 days Decision to Admit Reason: Admit from EC Decision Date: 12/27/19 Decision Time: 08:48
[2019-12-27 07:51] LABS: Anisocytosis Slight; Basophils % (A) 0 %; Eosinophils % (A) 0 %; HCT 35.4 % (34.0-46.0); HGB 11.6 gm/dL (11.4-16.0); Lymphocytes # (A) 2.1 k/uL (1.0-4.8); Lymphocytes % (A) 26 %; MCH 27.2 pg (25.0-35.0); MCHC 32.7 g/dL (31.0-37.0); MCV 83.3 fL (80.0-100.0); Mean Platelet Volume 9.6; Monocytes # (A) 0.4 k/uL (0-1.0); Monocytes % (A) 5 %; Neutrophils # (A) 5.2 k/uL (1.3-7.7); Neutrophils % (A) 66 %; Platelet Count 153 k/uL (150-450); RBC 4.25 m/uL (3.80-5.40); RDW 16.3 % (11.5-15.5); WBC 7.9 k/uL (3.8-10.6)
[2019-12-27 07:59] LABS: INR 0.9 (<1.2); Partial Thromboplastin Time 22.4 sec (22.0-30.0); Prothrombin Time 9.5 sec (9.0-12.0)
[2019-12-27 08:05] LABS: Albumin 3.8 g/dL (3.5-5.0); Calcium 9.2 mg/dL (8.4-10.2); Magnesium 1.7 mg/dL (1.6-2.3); Potassium 3.9 mmol/L (3.5-5.1); Total Bilirubin 0.6 mg/dL (0.2-1.3); Total Protein 6.3 g/dL (6.3-8.2)
--- NOTE | 2019-12-27 08:10 | XR ---
EXAMINATION TYPE: XR chest 2V DATE OF EXAM: 12/27/2019 COMPARISON: Prior chest x-ray 08/20/2017 HISTORY: Chest pain TECHNIQUE: Frontal and lateral views of the chest are obtained. FINDINGS: The patient is rotated. There is no focal air space opacity, pleural effusion, or pneumotho rax seen. The cardiac silhouette size is within normal limits. The osseous structures are intact, some arthropathy noted in the shoulders, possible underlying spinal curvature. There are overlying ca rdiac leads, surgical clip present in the left upper quadrant. Coronary artery stents, coronary arter y calcifications present. IMPRESSION: No acute cardiopulmonary process. Coronary artery disease.
[2019-12-27] MEDS ORDERED: HEPARIN SODIUM,PORCINE 5,000 UNIT/ML 1 ML VIAL IV PRN (08:34)
[2019-12-27] MEDS ORDERED: HEPARIN SODIUM,PORCINE 5,000 UNIT/ML 1 ML VIAL IV ONE (08:34)
[2019-12-27] MEDS ORDERED: NITROGLYCERIN SL TABS 0.4 MG TAB SUBLINGUAL PRN ×3 (08:34→16:06)
[2019-12-27] MEDS ORDERED: MORPHINE SULFATE 2 MG/ML SYRINGE IVP PRN (08:42)
[2019-12-27] MEDS ORDERED: DEXTROSE 5%-0.45% NACL 1,000 ML IV ONE (08:44)
[2019-12-27] MEDS ORDERED: HEPARIN SOD,PORK IN 0.45% NACL 25,000 UNIT in 0.45% NACL 1 250ML.BAG IV SCH (08:45)
--- NOTE | 2019-12-27 10:48 | P.CRDCN ---
History of Present Illness Consult date: 12/27/19 Consult reason: chest pain Chief complaint: Chest pain History of present illness: This is a 69-year-old female with documented history of hypertension, diabetes, hyperlipidemia, coronary artery disease with prior stent placement, history of depression, she follows with Dr. Sandoval in [place] as her c ardiologist. Patient also has a history of depression. She presents to the hospital on this occasion with symptoms of midsternal chest discomfort. According to the patient she woke up in the middle of the night with symptoms of midsternal chest pressure, she states that she took a single sublingual nitroglycerin, pain dissipated for approximately an hour. At that time the same discomfort came back she took a second sublingual nitroglycerin which again her relief for approximately an hour, after experiencing pain again the third time she came to the emergency room for further evaluation and treatment. At the time of my evaluation in the emergency room the patient's complaining of feeling short of breath, and feels as though she has a difficult time speaking, her voice is quite hoarse. Her chest x-ray on presentation here did not show any acute process. EKG showed normal sinus rhythm with right bundle branch block pattern and nonspecific ST-T wave changes. Blood pressure 114/70 with a heart rate of 70-90 respirations 1899% on room air. White blood cell count 7.9, hemoglobin 11.6, platelet count 153. Sodium 139, potassium 3.9, BUN 16 and creatinine 0.7. Magnesium 1.7. Troponin 0.275. Drug screen positive for tricyclic antidepressants. Patient's home medications include Robaxin, lidocaine ointment, Provigil, Brilinta 90 mg twice a day, senna tablets, aspirin 81 mg daily, Remeron, Lopressor, Mag-Ox, Zestril, Synthroid, Imdur, Humalog pen, Levemir, study a, Cymbalta, Clarinex, and Lipitor 80. At the time of my examination she no longer was having any chest discomfort. Past Medical History Past Medical History: Chest Pain / Angina, Diabetes Mellitus Additional Past Medical History / Comment(s): [facility] History of Any Multi-Drug Resistant Organisms: None Reported Past Surgical History: Heart Catheterization With Stent, Orthopedic Surgery, T ubal Ligation Additional Past Surgical History / Comment(s): CARDIAC CATH with 3 stents placed Past Anesthesia/Blood Transfusion Reactions: No Reported Reaction Date of Last Stent Placement:: 04/2017 Past Psychological History: Depression Smoking Status: Never smoker Past Alcohol Use History: Occasional Past Drug Use History: None Reported - Past Family History Father History Unknown: Yes Mother History Unknown: Yes Medications and Allergies Home Medications Medication Instructions Recorded Confirmed Type Aspirin [Adult Low Dose Aspirin EC] 81 mg PO HS 08/11/17 12/27/19 History Colchicine [Colcrys] 0.6 mg PO DAILY 08/11/17 12/27/19 History Insulin Detemir (Levemir) [Levemir] 38 unit SQ HS 08/11/17 12/27/19 History Lidocaine 5% Oint [Xylocaine 5% 1 applic TOPICAL HS PRN 08/11/17 12/27/19 History Oint] Nitroglycerin Sl Tabs [Nitrostat] 0.4 mg SUBLINGUAL Q5M PRN 08/11/17 12/27/19 History Ticagrelor [Brilinta] 90 mg PO BID 08/11/17 12/27/19 History Ascorbic Acid [Vitamin C] 500 mg PO DAILY 12/27/19 12/27/19 History Atorvastatin Calcium [Lipitor] 80 mg PO HS 12/27/19 12/27/19 History DULoxetine HCL [Cymbalta] 60 mg PO DAILY 12/27/19 12/27/19 History Desloratadine [Clarinex] 5 mg PO DAILY 12/27/19 12/27/19 History Docusate [Colace] 100 mg PO BID 12/27/19 12/27/19 History Ezetimibe [Zetia] 10 mg PO DAILY 12/27/19 12/27/19 History Fluticasone Nasal [place] [Flonase 2 spr EA NOSTRIL DAILY 12/27/19 12/27/19 History Nasal [place]] HYDROcodone/APAP 5-325MG [[facility] 1 tab PO Q4HR PRN 12/27/19 12/27/19 History 5-325] Insulin Lispro [humaLOG Kwikpen] See Protocol SQ AC-TID 12/27/19 12/27/19 History Isosorbide Mononitrate ER [Imdur] 30 mg PO DAILY 12/27/19 12/27/19 History Levothyroxine Sodium [Synthroid] 112 mcg PO DAILY 12/27/19 12/27/19 History Lisinopril [Zestril] 10 mg PO DAILY 12/27/19 12/27/19 History Magnesium Oxide [Mag-Ox] 400 mg PO BID 12/27/19 12/27/19 History Metoprolol Tartrate [Lopressor] 50 mg PO TID 12/27/19 12/27/19 History Mirtazapine [Remeron] 15 mg PO HS 12/27/19 12/27/19 History Multivitamins, Thera [Multivitamin 1 tab PO DAILY 12/27/19 12/27/19 History (formulary)] Sennosides [Senna] 17.2 mg PO HS 12/27/19 12/27/19 History hydrOXYzine HCL [Atarax] 10 mg PO DAILY 12/27/19 12/27/19 History methocarbamoL [Robaxin] 750 mg PO QID PRN 12/27/19 12/27/19 History modafiniL [Provigil] 200 mg PO DAILY 12/27/19 12/27/19 History rOPINIRole HCL [Requip] 4 mg PO TID 12/27/19 12/27/19 History sitaGLIPtin PHOS/metFORMIN HCL 1 tab PO BID 12/27/19 12/27/19 History [Janumet 50-1,000 mg Tablet] Allergies Allergy/AdvReac Type Severity Reaction Status Date / Time Penicillins Allergy Rash/Hives Verified 12/27/19 08:29 Physical Exam Vitals: Vital Signs Temp Pulse Resp BP Pulse Ox 12/27/19 07:13 98.6 F 97 18 114/74 99 Intake and Output 12/26/19 12/27/19 12/27/19 22:59 06:59 14:59 Other: Weight 89.358 kg PHYSICAL EXAMINATION: GENERAL: 69-year-old female in no acute distress at the time of my examination HEENT: Head is atraumatic, normocephalic. Pupils equal, round. Sclera anicteric. Conjunctiva are clear. Mucous membranes of the mouth are moist. Neck is supple. There is no elevated jugular venous pressure. No carotid bruit is heard. HEART EXAMINATION: S1 and S2 with systolic murmur is heard CHEST EXAMINATION: Lungs are clear to auscultation and precussion. No chest wall tenderness is noted on palpation or with deep breathing. ABDOMEN: Soft, obese, nontender. Bowel sounds are heard. No organomegaly noted. EXTREMITIES: 2+ peripheral pulses with no evidence of peripheral edema and no calf tenderness noted. NEUROLOGIC patient is awake, alert and oriented 3 . Results 12/27/19 07:45 12/27/19 07:45 Cardiac Enzymes 12/27/19 12/27/19 Range/Units 07:45 07:45 AST 29 (14-36) U/L Troponin I 0.275 H* (0.000-0.034) ng/mL Coagulation 12/27/19 Range/Units 07:45 PT 9.5 (9.0-12.0) sec APTT 22.4 (22.0-30.0) sec CBC 12/27/19 Range/Units 07:45 WBC 7.9 (3.8-10.6) k/uL RBC 4.25 (3.80-5.40) m/uL Hgb 11.6 (11.4-16.0) gm/dL Hct 35.4 (34.0-46.0) % Plt Count 153 (150-450) k/uL Comprehensive Metabolic Panel 12/27/19 Range/Units 07:45 Sodium 139 (137-145) mmol/L Potassium 3.9 (3.5-5.1) mmol/L Chloride 106 (98-107) mmol/L Carbon Dioxide 26 (22-30) mmol/L BUN 16 (7-17) mg/dL Creatinine 0.79 (0.52-1.04) mg/dL Glucose 69 L (74-99) mg/dL Calcium 9.2 (8.4-10.2) mg/dL AST 29 (14-36) U/L ALT 28 (4-34) U/L Alkaline Phosphatase 106 (38-126) U/L Total Protein 6.3 (6.3-8.2) g/dL Albumin 3.8 (3.5-5.0) g/dL Current Medications Generic Name Dose Route Start Last Admin Trade Name Freq PRN Reason Stop Dose Admin Aspirin 325 mg 12/28/19 09:00 Aspirin 325 Mg Tab PO DAILY FRANCISCO Heparin Sodium (Porcine) 0 unit 12/27/19 08:34 Heparin Sodium,Porcine 5,000 Unit/Ml 1 Ml Vial IV PER PROTOCOL PRN Low PTT Protocol Heparin Sodium/Sodium Chloride 250 mls @ 10 mls/hr 12/27/19 08:45 12/27/19 09:13 25,000 unit/ Sodium Chloride IV 11.191 units/kg/hr .Q24H FRANCISCO 10 mls/hr Administration Protocol 11.191 UNITS/KG/HR Dextrose/Sodium Chloride 1,000 mls @ 50 mls/hr 12/27/19 08:44 12/27/19 09:12 Dextrose 5%-1/2ns Iv Soln IV 12/28/19 04:43 50 mls/hr .Q20H ONE Administration Morphine Sulfate 2 mg 12/27/19 08:42 Morphine Sulfate 2 Mg/Ml Syringe IVP Q5M PRN Chest Pain Nitroglycerin 0.4 mg 12/27/19 08:34 Nitroglycerin Sl Tabs 0.4 Mg Tab SUBLINGUAL Q5M PRN Chest Pain Intake and Output 12/26/19 12/27/19 12/27/19 22:59 06:59 14:59 Other: Weight 89.358 kg Patient Weight 12/28/19 06:59 Weight 89.358 kg 12/27/19 07:45 12/27/19 07:45 EKG Interpretations (text) EKG showed a normal sinus rhythm with right bundle branch block pattern and nonspecific ST-T wave changes Assessment and Plan Plan: Assessment and plan #1 symptoms of midsternal chest pressure and heaviness, EKG shows normal sinus rhythm with right bundle branch block pattern and nonspecific ST-T wave changes. Initial troponin 0.275, possible acute coronary syndrome #2 coronary artery disease history with prior stent placement, exact details not available #3 hypertension #4 diabetes #5 hyperlipidemia #6 depression Plan We will obtain an echocardiogram with Doppler study, repeat EKG, 2 subsequent troponins. We will also attempt to get more information on patient's prior stent procedures. Patient may require to undergo cardiac catheterization, further recommendations to follow. She is currently on IV heparin, which we will continue, we will decrease the aspirin to 81 mg daily. Resume statin, Zetia, Brilinta, Lisinopril, metoprolol. DNP note has been reviewed, I agree with a documented findings and plan of care. Patient was seen and examined.
[2019-12-27] MEDS ORDERED: SODIUM CHLORIDE 0.9% 1,000 ML in EMPTY BAG 1 BAG IV ONE (11:32)
[2019-12-27] MEDS ORDERED: ATORVASTATIN 80 MG TAB PO STA (11:32)
[2019-12-27] MEDS ORDERED: ALPRAZolam 0.5 MG TAB PO PRN (11:32)
[2019-12-27] MEDS ORDERED: ALPRAZolam 0.25 MG TAB PO PRN (11:32)
[2019-12-27 11:49] LABS: Glucose,Whole Blood 159 mg/dL (75-99)
--- NOTE | 2019-12-27 12:05 | ECHOF ---
Referral Reason:NSTEMI MEASUREMENTS -------- HEIGHT: 172.7 cm WEIGHT: 89.4 kg BP: 114/74 RVIDd: 3.0 cm (< 3.3) IVSd: 1.3 cm (0.6 - 1.1) LVIDd: 3.7 cm (3.9 - 5.3) LVPWd: 1.2 cm (0.6 - 1.1) IVSs: 1.8 cm LVIDs: 2.3 cm LVPWs: 1.5 cm LA Diam: 3.6 cm (2.7 - 3.8) LAESV Index (A-L): 26.92 ml/m Ao Diam: 2.9 cm (2.0 - 3.7) AV Cusp: 1.8 cm (1.5 - 2.6) MV EXCURSION: 15.184 mm (> 18.000) MV EF SLOPE: 89 mm/s (70 - 150) EPSS: 0.4 cm RAP: 15.00 mmHg RVSP: 33.73 mmHg FINDINGS -------- This was a technically adequate study. The left ventricular size is normal. There is mild concentric left ventricular hypertrophy. Overa ll left ventricular systolic function is mildly impaired with, an EF between 45 - 50 %. Apical ante rior LV wall motion is hypokinetic. Apical lateral LV wall motion is hypokinetic. Apical inferi or LV wall motion is hypokinetic. Apical septum LV wall motion is hypokinetic. The right ventricle is normal in size. Normal LA size by volume 22+/-6 ml/m2. The right atrium is normal in size. Interatrial and interventricular septum intact. The aortic valve is trileaflet and appears structurally normal. Mild mitral regurgitation is present. Mild tricuspid regurgitation present. There is borderline pulmonary hypertension. The right ventr icular systolic pressure, as measured by Doppler, is 33.73mmHg. Trace/mild (physiologic) pulmonic regurgitation. The aortic root size is normal. The inferior vena cava is dilated with poor inspiratory collapse which is consistent with estimated r ight atrial pressure of 15 mmHg. There is no pericardial effusion. CONCLUSIONS -------- 1. The left ventricular size is normal. 2. There is mild concentric left ventricular hypertrophy. 3. Overall left ventricular systolic function is mildly impaired with, an EF between 45 - 50 %. 4. Apical anterior LV wall motion is hypokinetic. 5. Apical lateral LV wall motion is hypokinetic. 6. Apical inferior LV wall motion is hypokinetic. 7. Apical septum LV wall motion is hypokinetic. 8. Mild mitral regurgitation is present. 9. Mild tricuspid regurgitation present. 10. There is borderline pulmonary hypertension. 11. The right ventricular systolic pressure, as measured by Doppler, is 33.73mmHg. 12. Trace/mild (physiologic) pulmonic regurgitation. 13. The inferior vena cava is dilated with poor inspiratory collapse which is consistent with estimat ed right atrial pressure of 15 mmHg. 14. There is no pericardial effusion. [employer]: Edna Smith RDCS
--- NOTE | 2019-12-27 12:14 | P.HPIM ---
History of Present Illness This is a pleasant 69 years old female with past medical history of diabetes mellitus and hydrocephalus, she is status post cardiac cath and stent placement for her coronary artery disease, depression. She just recently moved to [facility] and she follow [facility]. She sees her salvage winder and inspector Dr. Doyle at [place] and she has a follow-up appointment in 2 weeks. Patient presents because of chest pain which started last night of one-day duration, about 6-7/10 in severity, felt like annoying constant pain non- specific radiating to the left shoulder blade associated with some dizziness which is improved now but no vomiting or sweating or shortness of breath. Her chest pain resolved transiently with 2 sublingual nitroglycerin pills Vitas looks stable, labs including CBC, INR, BMP, liver enzymes are unremarkable. Troponin is elevated 0.275. Glucose was low 69 and then corrected 159 EKG showing wide QRS rhythm at 89 with right bundle branch block and QTC 476. Chest x-ray: No acute process In the emergency room she was started on heparin drip and aspirate 325 mg. Review of Systems CONSTITUTIONAL: No fever, no malaise, no fatigue. HEENT: No recent visual problems or hearing problems. Denied any sore throat. CARDIOVASCULAR: No orthopnea, PND, no palpitations, no syncope. PULMONARY: No shortness of breath, no cough, no hemoptysis. GASTROINTESTINAL: No diarrhea, no nausea, no vomiting, no abdominal pain. Normoactive bowel sounds. NEUROLOGICAL: No headaches, no weakness, no numbness. HEMATOLOGICAL: Denies any bleeding or petechiae. GENITOURINARY: Denies any burning micturition, frequency, or urgency. MUSCULOSKELETAL/RHEUMATOLOGICAL: Denies any joint pain, swelling, or any muscle pain. ENDOCRINE: Denies any polyuria or polydipsia. 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 History of Any Multi-Drug Resistant Organisms: None Reported Past Surgical History: Heart Catheterization With Stent, Orthopedic Surgery, Tubal Ligation Additional Past Surgical History / Comment(s): CARDIAC CATH with 3 stents placed Past Anesthesia/Blood Transfusion Reactions: No Reported Reaction Date of Last Stent Placement:: 04/2017 Past Psychological History: Depression Smoking Status: Never smoker Past Alcohol Use History: Occasional Past Drug Use History: None Reported - Past Family History Father History Unknown: Yes Mother History Unknown: Yes Medications and Allergies Home Medications Medication Instructions Recorded Confirmed Type Aspirin [Adult Low Dose Aspirin EC] 81 mg PO HS 08/11/17 12/27/19 History Colchicine [Colcrys] 0.6 mg PO DAILY 08/11/17 12/27/19 History Insulin Detemir (Levemir) [Levemir] 38 unit SQ HS 08/11/17 12/27/19 History Lidocaine 5% Oint [Xylocaine 5% 1 applic TOPICAL HS PRN 08/11/17 12/27/19 History Oint] Nitroglycerin Sl Tabs [Nitrostat] 0.4 mg SUBLINGUAL Q5M PRN 08/11/17 12/27/19 History Ticagrelor [Brilinta] 90 mg PO BID 08/11/17 12/27/19 History Ascorbic Acid [Vitamin C] 500 mg PO DAILY 12/27/19 12/27/19 History Atorvastatin Calcium [Lipitor] 80 mg PO HS 12/27/19 12/27/19 History DULoxetine HCL [Cymbalta] 60 mg PO DAILY 12/27/19 12/27/19 History Desloratadine [Clarinex] 5 mg PO DAILY 12/27/19 12/27/19 History Docusate [Colace] 100 mg PO BID 12/27/19 12/27/19 History Ezetimibe [Zetia] 10 mg PO DAILY 12/27/19 12/27/19 History Fluticasone Nasal [place] [Flonase 2 spr EA NOSTRIL DAILY 12/27/19 12/27/19 History Nasal [place]] HYDROcodone/APAP 5-325MG [[place] 1 tab PO Q4HR PRN 12/27/19 12/27/19 History 5-325] Insulin Lispro [humaLOG Kwikpen] See Protocol SQ AC-TID 12/27/19 12/27/19 History Isosorbide Mononitrate ER [Imdur] 30 mg PO DAILY 12/27/19 12/27/19 History Levothyroxine Sodium [Synthroid] 112 mcg PO DAILY 12/27/19 12/27/19 History Lisinopril [Zestril] 10 mg PO DAILY 12/27/19 12/27/19 History Magnesium Oxide [Mag-Ox] 400 mg PO BID 12/27/19 12/27/19 History Metoprolol Tartrate [Lopressor] 50 mg PO TID 12/27/19 12/27/19 History Mirtazapine [Remeron] 15 mg PO HS 12/27/19 12/27/19 History Multivitamins, Thera [Multivitamin 1 tab PO DAILY 12/27/19 12/27/19 History (formulary)] Sennosides [Senna] 17.2 mg PO HS 12/27/19 12/27/19 History hydrOXYzine HCL [Atarax] 10 mg PO DAILY 12/27/19 12/27/19 History methocarbamoL [Robaxin] 750 mg PO QID PRN 12/27/19 12/27/19 History modafiniL [Provigil] 200 mg PO DAILY 12/27/19 12/27/19 History rOPINIRole HCL [Requip] 4 mg PO TID 12/27/19 12/27/19 History sitaGLIPtin PHOS/metFORMIN HCL 1 tab PO BID 12/27/19 12/27/19 History [Janumet 50-1,000 mg Tablet] Allergies Allergy/AdvReac Type Severity Reaction Status Date / Time Penicillins Allergy Rash/Hives Verified 12/27/19 08:29 Physical Exam Vitals: Vital Signs Temp Pulse Resp BP Pulse Ox 12/27/19 11:44 92 18 96/71 98 12/27/19 07:13 98.6 F 97 18 114/74 99 Intake and Output 12/26/19 12/27/19 12/27/19 22:59 06:59 14:59 Other: Weight 89.358 kg GENERAL: The patient is alert and oriented x3, not in any acute distress. Well developed, well nourished. HEENT: Pupils are round and equally reacting to light. EOMI. No scleral icterus. No conjunctival pallor. Normocephalic, atraumatic. No pharyngeal erythema. No thyromegaly. CARDIOVASCULAR: S1 and S2 present. No murmurs, rubs, or gallops. PULMONARY: Chest is clear to auscultation, no wheezing or crackles. ABDOMEN: Soft, nontender, nondistended, normoactive bowel sounds. No palpable o rganomegaly. MUSCULOSKELETAL: No joint swelling or deformity. EXTREMITIES: No cyanosis, clubbing, or pedal edema. NEUROLOGICAL: Gross neurological examination did not reveal any focal deficits. SKIN: No rashes. No petechiae Results CBC & Chem 7: 12/27/19 07:45 12/27/19 07:45 Labs: Abnormal Lab Results - Last 24 Hours (Table) 12/27/19 12/27/19 12/27/19 Range/Units 07:45 07:45 07:45 RDW 16.3 H (11.5-15.5) % Glucose 69 L (74-99) mg/dL POC Glucose (mg/dL) (75-99) mg/dL Troponin I 0.275 H* (0.000-0.034) ng/mL 12/27/19 Range/Units 11:47 RDW (11.5-15.5) % Glucose (74-99) mg/dL POC Glucose (mg/dL) 159 H (75-99) mg/dL Troponin I (0.000-0.034) ng/mL Assessment and Plan Assessment: non-STEMI with elevated troponin and chest pain Diabetes mellitus, with hypoglycemia History of coronary artery disease status post stent placement Depression, not an active issue Obesity with BMI of 30 Plan: This is a pleasant 69 years old female who presents with chest pain. Follow-up recommendation by Cardiology consult. Serial troponin. Continue with aspirin 81 mg and Brilinta. Continue with heparin drip Labs and medication were reviewed.. Continue same treatment. Continue with s ymptomatic treatment. Resume home medication. Monitor lytes and vitals. DVT and GI prophylaxis. Further recommendations depends on the clinical course of the patient DVT prophylaxis: heparin GI Prophylaxis: Pepcid PT/OT: Pending Prognosis is guarded
[2019-12-27 12:57] LABS: Glucose,Whole Blood 167 mg/dL (75-99)
[2019-12-27 14:26] LABS: Glucose,Whole Blood 262 mg/dL (75-99)
[2019-12-27] MEDS ORDERED: LIDOCAINE 1% INJ 10MG/ML (20 ML MDV) ONE (14:32)
[2019-12-27] MEDS ORDERED: fentaNYL (PF) 50 MCG/ML 2 ML AMP ONE (14:32)
[2019-12-27] MEDS ORDERED: VERAPAMIL 2.5 MG/ML 2 ML AMP ONE (14:46)
[2019-12-27] MEDS ORDERED: fentaNYL (PF) 50 MCG/ML 2 ML AMP IVP ONE (15:17)
[2019-12-27] MEDS ORDERED: LIDOCAINE 1% INJ 10MG/ML (20 ML MDV) SQ ONE (15:17)
[2019-12-27] MEDS ORDERED: IV FLUID CONTINUATION 1,000 ML IV ONE (15:18)
[2019-12-27] MEDS ORDERED: VERAPAMIL SYRINGE (5 MG/10 ML) INTRAARTER ONE (15:26)
[2019-12-27] MEDS ORDERED: HEPARIN SODIUM 1,000 UN/ML (10ML VL) IV ONE (15:36)
[2019-12-27] MEDS ORDERED: NITROGLYCERIN 1000MCG/10ML SYRINGE INTRACORON ONE (15:41)
[2019-12-27] MEDS ORDERED: IOPAMIDOL-370 125ML BTL INJ ONE (15:51)
[2019-12-27] MEDS ORDERED: IOPAMIDOL-370 100ML BTL INJ ONE (15:56)
[2019-12-27] MEDS ORDERED: ATROPINE SULFATE 0.1 MG/ML 10ML SYRINGE IV PRN (16:06)
[2019-12-27] MEDS ORDERED: ZOLPIDEM 5 MG TAB PO PRN (16:06)
[2019-12-27] MEDS ORDERED: RX INFO: IV CONTRAST WAS GIVEN 1 EACH MISC MISCELLANE PRN (16:06)
[2019-12-27] MEDS ORDERED: MAG HYDROX/AL HYDROX/SIMETH 30 ML CUP PO PRN (16:06)
[2019-12-27] MEDS ORDERED: SODIUM CHLORIDE 0.9% 1,000 ML IV SCH (16:15)
[2019-12-27 16:41] LABS: Glucose,Whole Blood 172 mg/dL (75-99)
[2019-12-27] MEDS ORDERED: methocarbamoL 750 MG TAB PO PRN (17:27)
[2019-12-27] MEDS ORDERED: METOPROLOL TARTRATE 50 MG TAB PO STA (17:27)
[2019-12-27] MEDS ORDERED: HYDROcodone/APAP 5-325MG 1 EACH TAB PO PRN (17:27)
[2019-12-27] MEDS ORDERED: LIDOCAINE 5% OINTMENT 50 GM JAR TOPICAL PRN (17:27)
[2019-12-27] MEDS: INSULIN ASPART (NovoLOG) 100 UNIT/ML VIAL SQ SCH ×2 (17:37→21:36)
[2019-12-27] MEDS: METOPROLOL TARTRATE 50 MG TAB PO SCH ×2 (17:51→21:36)
[2019-12-27] MEDS: TICAGRELOR 90 MG TAB PO SCH (19:59)
[2019-12-27] MEDS: ATORVASTATIN 80 MG TAB PO SCH (19:59)
[2019-12-27] MEDS: FAMOTIDINE 20 MG/2 ML VIAL IV SCH (19:59)
[2019-12-27] MEDS: DOCUSATE 100 MG CAP PO SCH (19:59)
[2019-12-27] MEDS: rOPINIRole HCL 4 MG TABLET PO SCH (19:59)
[2019-12-27] MEDS ORDERED: NON FORMULARY DRUG (Aspirin [Adult Low Dose Aspirin Ec] 81 MG Tablet.Dr) PO SCH (21:00)
[2019-12-27 21:04] LABS: Glucose,Whole Blood 382 mg/dL (75-99)
[2019-12-27] MEDS: INSULIN DETEMIR (LEVEMIR) 100 UNIT/ML SYR SQ SCH (21:36)
--- NOTE | 2019-12-27 22:09 | CC ---
CARDIAC CATHETERIZATION REPORT Mrs. Granados is a 69-year-old female with known history of hypertension, hyperlipidemia, history of diabetes mellitus, who presented to the emergency room with symptoms of chest discomfort. She had mild troponin elevation and evidence of junctional tachycardia. In view of that, recommendation made regarding cardiac catheterization. The procedures, risks, and complications were discussed with the patient who is in full understanding and agreement. PROCEDURE DETAILS: Patient was brought to the catheter finisher and inspector in a fasting state after receiving fentanyl and Benadryl and achieving moderate conscious sedated state. Using Xylocaine anesthesia and Seldinger technique, a 6-Algerian sheath was introduced in the right radial artery. Selective right and left coronary angiography performed using 5-Algerian 3.5 bend right and left Vivi catheter. Multiple views of the coronary artery including hemiaxial views were obtained. Following that, an angioplasty and stenting was performed following that a 5-Algerian tight pigtail catheter was introduced into the left ventricle and pressures were calculated. At the end of the procedure, catheter and sheath were removed. Hemostasis was obtained with deployment of a TR band. There was no immediate complication. The patient was returned to room in stable condition. Of note, the patient received intra-arterial verapamil as well as a total of 8000 units of intravenous heparin throughout the angioplasty. RESULTS: LEFT MAIN: This is a large-sized vessel, bifurcating into left circumflex, left anterior descending coronary artery. Left main coronary artery has no evidence of high- grade stenosis. LEFT ANTERIOR DESCENDING ARTERY: This is a large-sized vessel reaching to the apex with a wraparound the apex segment. There is a stent in the first diagonal branch that is patent. There is another stent in the mid LAD that has mild intimal in-stent restenosis. Distal to the stent, there is a tubular lesion of 30-40 percent. The rest of the vessel has no high-grade stenosis. LEFT CIRCUMFLEX: This is a nondominant vessel, large in caliber giving rise to 2 obtuse marginal branches. There is a stent in the first obtuse marginal branch that is patent with no evidence of significant in-stent restenosis and stent after the takeoff of the first obtuse marginal branch that has no evidence of high-grade stenosis. There is mild intimal disease throughout the vessel with a 30% plaque proximally. RIGHT CORONARY ARTERY: This is a large dominant vessel bifurcating distally PDA and posterolateral segment branches. There is a stent in the PDA that is patent. In the mid RCA, there is an another stent that has 2 areas of stenosis of about 60-70 percent. The rest of the vessel has no high-grade stenosis. LEFT VENTRICULOGRAM: Left ventriculogram is not performed. HEMODYNAMICS: There was no gradient across the aortic valve. The left ventricular end-diastolic pressure is 12-14 mmHg. CONCLUSION: 1. Significant stenosis in the stented segment of the mid RCA. 2. Mild disease in the LAD and the left circumflex. 3. Normal left ventricular end-diastolic pressure. RECOMMENDATIONS: In view of findings and anatomy, I recommend proceeding with angioplasty and stenting of the RCA. The procedures as well as risks, and complication were discussed with the patient who is in full understanding and agreement. MMODL / IJN: [id number] /
--- NOTE | 2019-12-27 22:16 | PTCA ---
PERCUTANEOUSTRANS CORORONARY ANGIOGRAPHY Mrs. Granados is a 69-year-old female with known history of hypertension, hyperlipidemia, history of diabetes mellitus, who presented with evidence of non-ST- segment elevation myocardial infarction, underwent cardiac catheterization, was found to have significant obstructive disease in the stented segment of the mid RCA. In view of that, recommendation made regarding angioplasty and stenting, the procedures, risks, and complication were discussed with the patient who is in full understanding and agreement. PROCEDURE DETAILS: A 6-Salvadorean FR4 guiding catheter was introduced into the system. After cannulating the right coronary ostium, a 0.014 balanced medium weight J-wire was advanced across the lesion and positioned distally. Then a 2.75 x 15 mm NC Emerge balloon was advanced and one inflation at 14 atmospheres was done. Following that, the balloon was removed and a 3.0 x 23 mm Xience Dianelys stent was advanced, deployed and was dilated at 16 atmospheres. After the last inflation, after appropriate wait, the balloon and the guidewire were withdrawn back in the guiding catheter. Images were obtained, repeated. Those images reveal stable successful stenting. At that point, the guiding catheter, the balloon and the guidewire were removed and a left ventricular end-diastolic pressure was calculated. Following that, catheter and sheath were removed. Hemostasis was obtained with deployment of a TR band. There was no immediate complication. Patient is returned to her room in stable condition. Of note, the patient had no chest discomfort or EKG changes with the inflation. She received 8000 units of intravenous heparin. Her ACT was monitored and she was continued on Brilinta. RESULTS: Successful stenting of the mid right coronary artery with reduction of stenosis from 70% to 0%. RECOMMENDATIONS: Patient will be continued on aspirin, Brilinta, beta anmol, NILES inhibitor and statin. The importance of dual antiplatelet treatment were discussed with the patient and her family and they are in full understanding and agreement. Duration of sedation is 41 minutes. MMODL / IJN: [id number] /
[2019-12-28 06:29] LABS: Glucose,Whole Blood 448 mg/dL (75-99)
[2019-12-28] MEDS: INSULIN ASPART (NovoLOG) 100 UNIT/ML VIAL SQ SCH ×4 (06:45→23:01)
[2019-12-28] MEDS: LEVOTHYROXINE 112 MCG TAB PO SCH (06:45)
[2019-12-28 07:36] LABS: Calcium 8.4 mg/dL (8.4-10.2); Potassium 4.6 mmol/L (3.5-5.1)
[2019-12-28 08:04] LABS: Anisocytosis Slight; Basophils % (A) 0 %; Eosinophils % (A) 0 %; HCT 33.5 % (34.0-46.0); HGB 10.6 gm/dL (11.4-16.0); Hypochromasia Slight; Lymphocytes # (A) 1.2 k/uL (1.0-4.8); Lymphocytes % (A) 22 %; MCH 27.1 pg (25.0-35.0); MCHC 31.6 g/dL (31.0-37.0); MCV 85.8 fL (80.0-100.0); Mean Platelet Volume 9.6; Monocytes # (A) 0.3 k/uL (0-1.0); Monocytes % (A) 5 %; Neutrophils % (A) 71 %; Platelet Count 149 k/uL (150-450); RDW 16.6 % (11.5-15.5); WBC 5.7 k/uL (3.8-10.6)
[2019-12-28] MEDS: FAMOTIDINE 20 MG/2 ML VIAL IV SCH ×2 (08:15→23:02)
[2019-12-28] MEDS: DOCUSATE 100 MG CAP PO SCH ×2 (08:16→23:04)
[2019-12-28] MEDS: ASPIRIN 81 MG PO SCH (08:16)
[2019-12-28] MEDS: EZETIMIBE 10 MG TAB PO SCH (08:16)
[2019-12-28] MEDS: TICAGRELOR 90 MG TAB PO SCH ×2 (08:16→23:04)
[2019-12-28] MEDS: rOPINIRole HCL 4 MG TABLET PO SCH ×3 (08:16→23:04)
[2019-12-28] MEDS: METOPROLOL TARTRATE 50 MG TAB PO SCH ×2 (08:16→18:14)
[2019-12-28] MEDS: FLUTICASONE 50MCG/SPRAY NASAL 16GM EA NOSTRIL SCH (08:17)
[2019-12-28] MEDS: COLCHICINE 0.6 MG EACH PO SCH (08:17)
[2019-12-28] MEDS: DULoxetine HCL 60 MG CAPSULE.DR PO SCH (08:17)
[2019-12-28] MEDS ORDERED: FUROSEMIDE 10 MG/ML 2 ML VIAL IV STA (08:55)
[2019-12-28] MEDS ORDERED: lisinopriL 10 MG TAB PO SCH (09:00)
[2019-12-28] MEDS ORDERED: ASPIRIN 325 MG TAB PO SCH (09:00)
--- NOTE | 2019-12-28 09:43 | P.PN ---
Subjective This is a pleasant 69 years old female with past medical history of diabetes mellitus and hydrocephalus, she is status post cardiac cath and stent placement for her coronary artery disease, depression. She just recently moved to [place] and she follow [facility]. She sees her coal briquette machine operator Dr. Doyle at [place] and she has a follow-up appointment in 2 weeks. Patient presents because of chest pain Of one-day duration found to have elevated troponin and non-STEMI. Initially treated with IV heparin and later underwent cardiac cath with successful stenting of the mid right coronary artery with reduction of stenosis from 70 down to 0% patient is already on aspirin and Brillinta Postoperatively patient feels fine with no chest pain or dyspnea or no other complaint. However patient has orthopnea and exertional dyspnea so coal briquette machine operator wanted to keep her with diuresis. Review of systems CONSTITUTIONAL: No fever, no malaise, no fatigue. HEENT: No recent visual problems or hearing problems. Denied any sore throat. CARDIOVASCULAR: No orthopnea, PND, no palpitations, no syncope. PULMONARY: No shortness of breath, no cough, no hemoptysis. GASTROINTESTINAL: No diarrhea, no nausea, no vomiting, no abdominal pain. Normoactive bowel sounds. NEUROLOGICAL: No headaches, no weakness, no numbness. HEMATOLOGICAL: Denies any bleeding or petechiae. Active Medications Generic Name Dose Route Start Last Admin Trade Name Freq PRN Reason Stop Dose Admin Hydrocodone Bitart/Acetaminophen 1 each 12/27/19 17:27 Hydrocodone/Apap 5-325mg 1 Each Tab PO Q4HR PRN Pain Al Hydroxide/Mg Hydroxide 30 ml 12/27/19 16:06 Mag Hydrox/Al Hydrox/Simeth 30 Ml Cup PO Q4HR PRN Heartburn Alprazolam 0.25 mg 12/27/19 11:32 Alprazolam 0.25 Mg Tab PO Q6HR PRN Mild Anxiety Alprazolam 0.5 mg 12/27/19 11:32 Alprazolam 0.5 Mg Tab PO Q6HR PRN Moderate Anxiety Aspirin 81 mg 12/28/19 09:00 12/28/19 08:16 Aspirin 81 Mg PO 81 mg DAILY FRANCISCO Administration Atorvastatin Calcium 80 mg 12/27/19 21:00 12/27/19 19:59 Atorvastatin 80 Mg Tab PO 80 mg HS FRANCISCO Administration Atropine Sulfate 0.5 mg 12/27/19 16:06 Atropine Sulfate 0.1 Mg/Ml 10ml Syringe IV ONCE PRN Symptomatic Bradycardia Colchicine 0.6 mg 12/28/19 09:00 12/28/19 08:17 Colchicine 0.6 Mg Each PO 0.6 mg DAILY FRANCISCO Administration Docusate Sodium 100 mg 12/27/19 21:00 12/28/19 08:16 Docusate 100 Mg Cap PO 100 mg BID FRANCISCO Administration Duloxetine HCl 60 mg 12/28/19 09:00 12/28/19 08:17 Duloxetine Hcl 60 Mg Capsule.Dr PO 60 mg DAILY FRANCISCO Administration Ezetimibe 10 mg 12/28/19 09:00 12/28/19 08:16 Ezetimibe 10 Mg Tab PO 10 mg DAILY FRANCISCO Administration Famotidine 20 mg 12/27/19 21:00 12/28/19 08:15 Famotidine 20 Mg/2 Ml Vial IV 20 mg Q12HR FRANCISCO Administration Fluticasone Propionate 2 spray 12/28/19 09:00 12/28/19 08:17 Fluticasone 50mcg/[place] Nasal 16gm EA NOSTRIL 2 spray DAILY FRANCISCO Administration Furosemide 20 mg 12/28/19 09:00 Furosemide 20 Mg Tab PO DAILY FRANCISCO Insulin Aspart 0 unit 12/27/19 17:30 12/28/19 06:45 Insulin Aspart (Novolog) 100 Unit/Ml Vial SQ 12 unit ACHS FRANCISCO Administration Protocol Insulin Detemir 38 unit 12/27/19 21:00 12/27/19 21:36 Insulin Detemir (Levemir) 100 Unit/Ml Syr SQ 38 unit HS FRANCISCO Administration Levothyroxine Sodium 112 mcg 12/28/19 06:30 12/28/19 06:45 Levothyroxine 112 Mcg Tab PO 112 mcg 0630 FRANCISCO Administration Lidocaine 1 applic 12/27/19 17:27 12/27/19 20:49 Lidocaine 5% Ointment 50 Gm Jar TOPICAL 1 applic HS PRN Administration Breakthrough Pain Lisinopril 10 mg 12/28/19 09:00 12/28/19 08:16 Lisinopril 10 Mg Tab PO 10 mg DAILY FRANCISCO Administration Methocarbamol 750 mg 12/27/19 17:27 Methocarbamol 750 Mg Tab PO QID PRN Muscle Spasm Metoprolol Tartrate 50 mg 12/27/19 16:00 12/28/19 08:16 Metoprolol Tartrate 50 Mg Tab PO 50 mg TID FRANCISCO Administration Miscellaneous Information 1 each 12/27/19 16:06 Rx Info: Iv Contrast Was Given 1 Each [facility] [place] MISCELLANE 12/29/19 16:06 DAILY PRN Per Protocol Modafinil 200 mg 12/28/19 09:00 12/28/19 08:24 Modafinil 200 Mg Tab PO 200 mg DAILY FRANCISCO Administration Morphine Sulfate 2 mg 12/27/19 08:42 Morphine Sulfate 2 Mg/Ml Syringe IVP Q5M PRN Chest Pain Nitroglycerin 0.4 mg 12/27/19 08:34 Nitroglycerin Sl Tabs 0.4 Mg Tab SUBLINGUAL Q5M PRN Chest Pain Ropinirole HCl 4 mg 12/27/19 22:00 12/28/19 08:16 Ropinirole Hcl 4 Mg Tablet PO 4 mg TID FRANCISCO Administration Ticagrelor 90 mg 12/27/19 21:00 12/28/19 08:16 Ticagrelor 90 Mg Tab PO 90 mg BID FRANCISCO Administration Zolpidem Tartrate 5 mg 12/27/19 16:06 Zolpidem 5 Mg Tab PO HS PRN Insomnia Objective - Vital Signs Vital signs: Vital Signs Temp 98.1 F 12/28/19 08:00 Pulse 78 12/28/19 08:00 Resp 20 12/28/19 08:00 BP 111/64 12/28/19 08:00 Pulse Ox 100 12/28/19 08:00 Intake & Output 12/27/19 12/28/19 12/28/19 18:59 06:59 18:59 Intake Total 265 Balance 265 Weight 89.358 kg 91.5 kg Intake: IV 265 Sodium Chloride 0.9% 1, 75 000 ml @ 75 mls/hr IV . [id number] [facility] Rx#:[id number] Other: # Voids 2 - Exam GENERAL: The patient is alert and oriented x3, not in any acute distress. Well developed, well nourished. HEENT: Pupils are round and equally reacting to light. EOMI. No scleral icterus. No conjunctival pallor. Normocephalic, atraumatic. No pharyngeal erythema. No thyromegaly. CARDIOVASCULAR: S1 and S2 present. No murmurs, rubs, or gallops. PULMONARY: Chest is clear to auscultation, no wheezing or crackles. ABDOMEN: Soft, nontender, nondistended, normoactive bowel sounds. No palpable organomegaly. MUSCULOSKELETAL: No joint swelling or deformity. EXTREMITIES: No cyanosis, clubbing, or pedal edema. NEUROLOGICAL: Gross neurological examination did not reveal any focal deficits. SKIN: No rashes. no petechiae. - Labs CBC & Chem 7: 12/28/19 06:41 12/28/19 06:41 Labs: Abnormal Lab Results - Last 24 Hours (Table) 12/27/19 12/27/19 12/27/19 Range/Units 10:57 11:47 12:43 Hgb (11.4-16.0) gm/dL Hct (34.0-46.0) % RDW (11.5-15.5) % Plt Count (150-450) k/uL APTT (22.0-30.0) sec Sodium (137-145) mmol/L Glucose (74-99) mg/dL POC Glucose (mg/dL) 159 H 167 H (75-99) mg/dL Troponin I 0.449 H* (0.000-0.034) ng/mL Triglycerides (<150) mg/dL LDL Cholesterol, Calc (0-99) mg/dL HDL Cholesterol (40-60) mg/dL 12/27/19 12/27/19 12/27/19 Range/Units 13:00 14:20 16:39 Hgb (11.4-16.0) gm/dL Hct (34.0-46.0) % RDW (11.5-15.5) % Plt Count (150-450) k/uL APTT (22.0-30.0) sec Sodium (137-145) mmol/L Glucose (74-99) mg/dL POC Glucose (mg/dL) 262 H 172 H (75-99) mg/dL Troponin I 0.624 H* (0.000-0.034) ng/mL Triglycerides (<150) mg/dL LDL Cholesterol, Calc (0-99) mg/dL HDL Cholesterol (40-60) mg/dL 12/27/19 12/28/19 12/28/19 Range/Units 21:02 06:28 06:41 Hgb (11.4-16.0) gm/dL Hct (34.0-46.0) % RDW (11.5-15.5) % Plt Count (150-450) k/uL APTT 21.9 L (22.0-30.0) sec Sodium (137-145) mmol/L Glucose (74-99) mg/dL POC Glucose (mg/dL) 382 H 448 H (75-99) mg/dL Troponin I (0.000-0.034) ng/mL Triglycerides (<150) mg/dL LDL Cholesterol, Calc (0-99) mg/dL HDL Cholesterol (40-60) mg/dL 12/28/19 12/28/19 Range/Units 06:41 06:41 Hgb 10.6 L (11.4-16.0) gm/dL Hct 33.5 L (34.0-46.0) % RDW 16.6 H (11.5-15.5) % Plt Count 149 L (150-450) k/uL APTT (22.0-30.0) sec Sodium 133 L (137-145) mmol/L Glucose 454 H (74-99) mg/dL POC Glucose (mg/dL) (75-99) mg/dL Troponin I (0.000-0.034) ng/mL Triglycerides 173 H (<150) mg/dL LDL Cholesterol, Calc 118 H (0-99) mg/dL HDL Cholesterol 33 L (40-60) mg/dL Assessment and Plan Assessment: non-STEMI. Status post cardiac cath and stenting of the RCA Diabetes mellitus, with hypoglycemia History of coronary artery disease status post stent placement Depression, not an active issue Obesity with BMI of 30 Plan: This is a pleasant 69 years old female who presents with chest pain. Follow-up recommendation by Cardiology consult. Continue with aspirin 81 mg and Brilinta. Continue with diuretics as per cardiology team Labs and medication were reviewed.. Continue same treatment. Continue with s ymptomatic treatment. Resume home medication. Monitor lytes and vitals. DVT and GI prophylaxis. Further recommendations depends on the clinical course of the patient DVT prophylaxis: heparin GI Prophylaxis: Pepcid
[2019-12-28] MEDS: FUROSEMIDE 20 MG TAB PO SCH (09:51)
[2019-12-28 11:36] LABS: Glucose,Whole Blood 363 mg/dL (75-99)
--- NOTE | 2019-12-28 11:52 | PN ---
PROGRESS NOTE Mrs. Granados is a 69-year-old female who presented with symptoms of chest discomfort, had absence of junctional tachycardia and mild troponin elevation, underwent cardiac catheterization, was found to have patent stent in the LAD and left circumflex with restenoses in the stent of the large RCA, underwent stenting of that vessel. She has no further chest pain, but she has some dyspnea on exertion. She still has episode of junctional tachycardia. She denies any palpitation. No peripheral edema. No nausea. She has been ambulating in the room. Continues to be on aspirin once a day, Brilinta 90 mg twice a day, Lipitor 80 mg daily, Duloxetine, Zetia 10 mg daily, metoprolol tartrate 50 mg 3 times a day, and lisinopril 10 mg daily. PHYSICAL EXAMINATION: Blood pressure 111/60 with a heart in the 70s. LUNGS: Clear. HEART: Regular rate and rhythm, S1, S2. No S3. No rub. ABDOMEN: Soft, nontender. EXTREMITIES: No edema, right radial pulse intact. LAB DATA: Revealed BUN and creatinine 17 and 0.91, potassium 4.6. Her cholesterol is 186, LDL of 118, hemoglobin of 10.6. IMPRESSION: 1. Status post stenting of the RCA with in-stent restenosis. 2. Non ST-segment elevation myocardial infarction. 3. Episode of junctional tachycardia. 4. Mild dyspnea. 5. Mild cardiomyopathy on echocardiography. 6. Hypertension. 7. Hyperlipidemia. RECOMMENDATION: The patient will receive a dose of IV Lasix today. Subsequently she will be started on oral diuretics, increase her level of activity. Will follow her renal function. Continue the beta anmol. Depending on her progress, further recommendation will be made. MMODL / IJN: [id number] /
[2019-12-28] MEDS: ONDANSETRON 4 MG/2 ML VIAL IVP PRN (13:38)
[2019-12-28 14:23] VITALS: BMI 30.7
[2019-12-28 16:46] LABS: Glucose,Whole Blood 312 mg/dL (75-99)
[2019-12-28] MEDS ORDERED: SODIUM CHLORIDE 0.9% 500 ML 500 ML IV ONE (18:17)
[2019-12-28 19:58] LABS: Hemoglobin A1C 14.9 % (4.0-6.0)
[2019-12-28 21:03] LABS: Glucose,Whole Blood 235 mg/dL (75-99)
[2019-12-28] MEDS ORDERED: INSULIN DETEMIR (LEVEMIR) 100 UNIT/ML SYR SQ SCH (22:30)
[2019-12-28] MEDS: HEPARIN SODIUM,PORCINE 5,000 UNIT/ML 1 ML VIAL SQ SCH (23:02)
[2019-12-28] MEDS: ATORVASTATIN 80 MG TAB PO SCH (23:04)
[2019-12-29] MEDS: METOPROLOL TARTRATE 50 MG TAB PO SCH (00:24)
[2019-12-29] MEDS: ONDANSETRON 4 MG/2 ML VIAL IVP PRN ×4 (00:27→21:37)
[2019-12-29] MEDS: INSULIN DETEMIR (LEVEMIR) 100 UNIT/ML SYR SQ SCH ×2 (00:51→21:36)
[2019-12-29 02:13] LABS: Glucose,Whole Blood 286 mg/dL (75-99)
[2019-12-29 03:54] LABS: Appearance,Urine Cloudy (Clear); Bacteria,Urine Rare /hpf; Bilirubin,Urine Negative (Negative); Blood,Urine Negative (Negative); Color,Urine Yellow; Glucose,Urine (UA) 4+ (Negative); Hyaline Casts,Urine 23 /lpf (0-2); Ketones,Urine Negative (Negative); Leukocyte Esterase,Urine Large (Negative); Mucus,Urine Occasional /hpf; Nitrite,Urine Negative (Negative); PH, Urine 5.5 (5.0-8.0); Protein,Urine 1+ (Negative); RBC,Urine 20 /hpf (0-5); Specific Gravity,Urine 1.034 (1.001-1.035); Squamous Epithelial Cell,Urine 5 /hpf (0-4); WBC,Urine 37 /hpf (0-5)
[2019-12-29 06:40] LABS: Glucose,Whole Blood 259 mg/dL (75-99)
[2019-12-29] MEDS: LEVOTHYROXINE 112 MCG TAB PO SCH (06:44)
[2019-12-29] MEDS: INSULIN ASPART (NovoLOG) 100 UNIT/ML VIAL SQ SCH ×4 (06:45→21:34)
[2019-12-29] MEDS ORDERED: lisinopriL 5 MG TAB PO SCH (09:00)
[2019-12-29] MEDS: FAMOTIDINE 20 MG/2 ML VIAL IV SCH ×2 (09:24→20:08)
[2019-12-29] MEDS: COLCHICINE 0.6 MG EACH PO SCH (09:24)
[2019-12-29] MEDS: TICAGRELOR 90 MG TAB PO SCH ×2 (09:24→20:08)
[2019-12-29] MEDS: EZETIMIBE 10 MG TAB PO SCH (09:25)
[2019-12-29] MEDS: DOCUSATE 100 MG CAP PO SCH ×2 (09:25→20:08)
[2019-12-29] MEDS: HEPARIN SODIUM,PORCINE 5,000 UNIT/ML 1 ML VIAL SQ SCH ×2 (09:25→20:09)
[2019-12-29] MEDS: DULoxetine HCL 60 MG CAPSULE.DR PO SCH (09:25)
[2019-12-29] MEDS: ASPIRIN 81 MG PO SCH (09:25)
[2019-12-29] MEDS: METOPROLOL TARTRATE 25 MG TAB PO SCH ×2 (09:25→20:08)
[2019-12-29] MEDS: rOPINIRole HCL 4 MG TABLET PO SCH ×3 (09:25→20:08)
[2019-12-29] MEDS: FUROSEMIDE 20 MG TAB PO SCH (09:26)
[2019-12-29] MEDS: FLUTICASONE 50MCG/SPRAY NASAL 16GM EA NOSTRIL SCH (09:33)
[2019-12-29 09:39] LABS: Anisocytosis Slight; Basophils % (A) 0 %; Calcium 8.6 mg/dL (8.4-10.2); Eosinophils % (A) 0 %; HCT 32.7 % (34.0-46.0); HGB 10.1 gm/dL (11.4-16.0); Hypochromasia Slight; Lymphocytes # (A) 1.4 k/uL (1.0-4.8); Lymphocytes % (A) 29 %; MCH 26.7 pg (25.0-35.0); MCHC 30.8 g/dL (31.0-37.0); MCV 86.5 fL (80.0-100.0); Mean Platelet Volume 9.7; Monocytes # (A) 0.3 k/uL (0-1.0); Monocytes % (A) 6 %; Neutrophils # (A) 3.1 k/uL (1.3-7.7); Neutrophils % (A) 63 %; Platelet Count 125 k/uL (150-450); Potassium 4.2 mmol/L (3.5-5.1); RBC 3.78 m/uL (3.80-5.40); RDW 16.7 % (11.5-15.5)
[2019-12-29] MEDS ORDERED: INSULIN DETEMIR (LEVEMIR) 100 UNIT/ML SYR SQ ONE (10:00)
[2019-12-29 12:12] LABS: Glucose,Whole Blood 240 mg/dL (75-99)
[2019-12-29] MEDS ORDERED: SODIUM CHLORIDE 0.9% 500 ML 500 ML IV ONE (13:34)
--- NOTE | 2019-12-29 15:36 | PN ---
PROGRESS NOTE Mrs. Granados is a 69-year-old female with known history of multivessel stenting, who presented with a non STEMI, underwent cardiac catheterization and stenting of the mid right coronary artery. She has been having episode of hypotension associated with episodes of junctional tachycardia. She has no chest pain. She feels tired and dizzy. She is not aware of any palpitation. She is not aware that she has the prior arrhythmia in the past. She denies any nausea. She continues to be on aspirin once a day, Lipitor 80 mg daily, Zetia 10 mg daily, Cymbalta, metoprolol tartrate 25 mg twice a day, lisinopril 2.5 mg daily, Brilinta 90 mg twice a day, Requip and Provigil. She was on a higher dose of beta anmol. PHYSICAL EXAMINATION: Blood pressure running in the 90s with a heart rate ranging between sinus in 70s and low 100s and junctional tachycardia. LUNGS: Clear. HEART: Regular rate and rhythm S1, S2. No S3. No rub appreciated. ABDOMEN: Soft, nontender. EXTREMITIES: No edema. LAB DATA: Revealed BUN and creatinine 25 and 1.07. Hemoglobin of 10.1. Her platelet count is 125,000. IMPRESSION: 1. Status post stenting of the mid right coronary artery with in-stent stenosis in the setting of non STEMI. 2. Episode of junctional tachycardia with episode of hypotension. 3. Status post multivessel stenting done in the past. 4. History of hyperlipidemia. 5. History of diabetes. 6. History of hypertension. RECOMMENDATION: I will hold the NILES inhibitor at this time. We will give her fluid bolus, continue medical regimen, follow her rhythm and depending on that, further recommendation will be made. MMODL / IJN: [id number] /
[2019-12-29 16:56] LABS: Glucose,Whole Blood 264 mg/dL (75-99)
[2019-12-29] MEDS: ATORVASTATIN 80 MG TAB PO SCH (20:08)
[2019-12-29 20:56] LABS: Glucose,Whole Blood 158 mg/dL (75-99)
--- NOTE | 2019-12-29 22:46 | P.PN ---
Subjective This is a pleasant 69 years old female with past medical history of diabetes mellitus and hydrocephalus, she is status post cardiac cath and stent placement for her coronary artery disease, depression. She just recently moved to [place] and [facility]. She sees her residence life coordinator Dr. Doyle at [place] and she has a follow-up appointment in 2 weeks. Patient presents because of chest pain Of one-day duration found to have elevated troponin and non-STEMI. Initially treated with IV heparin and later underwent cardiac cath with successful stenting of the mid right coronary artery with reduction of stenosis from 70 down to 0% patient is already on aspirin and Brillinta Postoperatively patient became hypotensive, we had to lower her blood pressure medication per residence life coordinator team recommendation, blood pressure improved. I is came back positive for infection, ceftriaxone was started. However patient has no fever and no leukocytosis. Follow-up urine culture results and if is negative then stop antibiotics if no symptoms. Patient is complaining of from left ear pain, auroscope examination done and was normal on both sides Patient needed a higher dose of penicillin and Levemir was increased to 50 units at bedtime and today we added NovoLog 10 units with meals. Follow-up glucose closely. Patient states she forgot to take medication at times, we'll consult social work lecturer Home health care was ordered Objective - Vital Signs Vital signs: Vital Signs Temp 97.1 F L 12/29/19 20:00 Pulse 66 12/29/19 20:00 Resp 16 12/29/19 20:00 BP 118/64 12/29/19 20:00 Pulse Ox 98 12/29/19 20:00 Intake & Output 12/29/19 12/29/19 12/30/19 06:59 18:59 06:59 Intake Total 610 Output Total 200 100 Balance -200 510 Weight 91.5 kg 91.5 kg Intake: Intake, IV Titration 250 Amount Sodium Chloride 0.9% 500 250 ml 500 ml @ 999 mls/hr IV .Q31M ONE Rx#:[id number] Oral 360 Output: Urine 200 100 Other: # Voids 1 1 # Bowel Movements 0 - Exam GENERAL: The patient is alert and oriented x3, not in any acute distress. Well developed, well nourished. HEENT: Pupils are round and equally reacting to light. EOMI. No scleral icterus. No conjunctival pallor. Normocephalic, atraumatic. No pharyngeal erythema. No thyromegaly. CARDIOVASCULAR: S1 and S2 present. No murmurs, rubs, or gallops. PULMONARY: Chest is clear to auscultation, no wheezing or crackles. ABDOMEN: Soft, nontender, nondistended, normoactive bowel sounds. No palpable organomegaly. MUSCULOSKELETAL: No joint swelling or deformity. EXTREMITIES: No cyanosis, clubbing, or pedal edema. NEUROLOGICAL: Gross neurological examination did not reveal any focal deficits. SKIN: No rashes. no petechiae. - Labs CBC & Chem 7: 12/29/19 08:45 12/29/19 08:45 Labs: Abnormal Lab Results - Last 24 Hours (Table) 12/29/19 12/29/19 12/29/19 Range/Units 02:10 03:14 06:39 RBC (3.80-5.40) m/uL Hgb (11.4-16.0) gm/dL Hct (34.0-46.0) % MCHC (31.0-37.0) g/dL RDW (11.5-15.5) % Plt Count (150-450) k/uL Sodium (137-145) mmol/L BUN (7-17) mg/dL Creatinine (0.52-1.04) mg/dL Glucose (74-99) mg/dL POC Glucose (mg/dL) 286 H 259 H (75-99) mg/dL Urine Appearance Cloudy H (Clear) Urine Protein 1+ H (Negative) Urine Glucose (UA) 4+ H (Negative) Ur Leukocyte Esterase Large H (Negative) Urine RBC 20 H (0-5) /hpf Urine WBC 37 H (0-5) /hpf Ur Squamous Epith Cells 5 H (0-4) /hpf Urine Bacteria Rare H (None) /hpf Hyaline Casts 23 H (0-2) /lpf Urine Mucus Occasional H (None) /hpf 12/29/19 12/29/19 12/29/19 Range/Units 08:45 08:45 12:09 RBC 3.78 L (3.80-5.40) m/uL Hgb 10.1 L (11.4-16.0) gm/dL Hct 32.7 L (34.0-46.0) % MCHC 30.8 L (31.0-37.0) g/dL RDW 16.7 H (11.5-15.5) % Plt Count 125 L (150-450) k/uL Sodium 133 L (137-145) mmol/L BUN 25 H (7-17) mg/dL Creatinine 1.07 H (0.52-1.04) mg/dL Glucose 220 H (74-99) mg/dL POC Glucose (mg/dL) 240 H (75-99) mg/dL Urine Appearance (Clear) Urine Protein (Negative) Urine Glucose (UA) (Negative) Ur Leukocyte Esterase (Negative) Urine RBC (0-5) /hpf Urine WBC (0-5) /hpf Ur Squamous Epith Cells (0-4) /hpf Urine Bacteria (None) /hpf Hyaline Casts (0-2) /lpf Urine Mucus (None) /hpf 12/29/19 12/29/19 Range/Units 16:48 20:52 RBC (3.80-5.40) m/uL Hgb (11.4-16.0) gm/dL Hct (34.0-46.0) % MCHC (31.0-37.0) g/dL RDW (11.5-15.5) % Plt Count (150-450) k/uL Sodium (137-145) mmol/L BUN (7-17) mg/dL Creatinine (0.52-1.04) mg/dL Glucose (74-99) mg/dL POC Glucose (mg/dL) 264 H 158 H (75-99) mg/dL Urine Appearance (Clear) Urine Protein (Negative) Urine Glucose (UA) (Negative) Ur Leukocyte Esterase (Negative) Urine RBC (0-5) /hpf Urine WBC (0-5) /hpf Ur Squamous Epith Cells (0-4) /hpf Urine Bacteria (None) /hpf Hyaline Casts (0-2) /lpf Urine Mucus (None) /hpf Microbiology - Last 24 Hours (Table) 12/29/19 03:14 Urine Culture - Preliminary Urine,Voided Assessment and Plan Assessment: non-STEMI. Status post cardiac cath and stenting of the RCA hypotension improved with adjusting medication Possible acute UTI Diabetes mellitus, with hypoglycemia and hyperglycemia Nonadherence to therapy History of coronary artery disease status post stent placement Depression, not an active issue Obesity with BMI of 30 Plan: This is a pleasant 69 years old female who presents with chest pain. Follow-up recommendation by Cardiology consult. Continue with aspirin 81 mg and Brilinta. Continue with diuretics as per cardiology team. Increase in swelling and developed glucose. Follow-up blood pressure. Consult social work lecturer to help patient as she forgets to take medication at times Labs and medication were reviewed.. Continue same treatment. Continue with symptomatic treatment. Resume home medication. Monitor lytes and vitals. DVT and GI prophylaxis. Further recommendations depends on the clinical course of the patient DVT prophylaxis: heparin GI Prophylaxis: Pepcid Prognosis is guarded
[2019-12-30 06:08] LABS: Glucose,Whole Blood 88 mg/dL (75-99)
[2019-12-30] MEDS: INSULIN ASPART (NovoLOG) 100 UNIT/ML VIAL SQ SCH ×8 (06:20→21:11)
[2019-12-30] MEDS: LEVOTHYROXINE 112 MCG TAB PO SCH (06:25)
[2019-12-30] MEDS: ONDANSETRON 4 MG/2 ML VIAL IVP PRN (07:17)
[2019-12-30 09:58] LABS: Anisocytosis Slight; Basophils % (A) 0 %; Eosinophils % (A) 0 %; HCT 33.3 % (34.0-46.0); HGB 10.4 gm/dL (11.4-16.0); Hypochromasia Slight; Lymphocytes # (A) 0.9 k/uL (1.0-4.8); Lymphocytes % (A) 14 %; MCH 26.7 pg (25.0-35.0); MCHC 31.2 g/dL (31.0-37.0); MCV 85.7 fL (80.0-100.0); Mean Platelet Volume 9.6; Monocytes # (A) 0.4 k/uL (0-1.0); Monocytes % (A) 6 %; Neutrophils # (A) 4.8 k/uL (1.3-7.7); Neutrophils % (A) 77 %; Platelet Count 140 k/uL (150-450); RBC 3.89 m/uL (3.80-5.40); RDW 16.8 % (11.5-15.5); WBC 6.3 k/uL (3.8-10.6)
[2019-12-30 10:06] LABS: Calcium 8.7 mg/dL (8.4-10.2); Potassium 4.5 mmol/L (3.5-5.1)
[2019-12-30] MEDS: DOCUSATE 100 MG CAP PO SCH ×2 (10:44→21:12)
[2019-12-30] MEDS: METOPROLOL TARTRATE 25 MG TAB PO SCH ×2 (10:45→21:11)
[2019-12-30] MEDS: rOPINIRole HCL 4 MG TABLET PO SCH ×3 (10:45→21:12)
[2019-12-30] MEDS: COLCHICINE 0.6 MG EACH PO SCH (10:45)
[2019-12-30] MEDS: DULoxetine HCL 60 MG CAPSULE.DR PO SCH (10:45)
[2019-12-30] MEDS: ASPIRIN 81 MG PO SCH (10:45)
[2019-12-30] MEDS: EZETIMIBE 10 MG TAB PO SCH (10:45)
[2019-12-30] MEDS: HEPARIN SODIUM,PORCINE 5,000 UNIT/ML 1 ML VIAL SQ SCH ×2 (10:45→21:12)
[2019-12-30] MEDS: TICAGRELOR 90 MG TAB PO SCH ×2 (10:45→21:12)
[2019-12-30] MEDS: FAMOTIDINE 20 MG/2 ML VIAL IV SCH (10:45)
[2019-12-30] MEDS: FLUTICASONE 50MCG/SPRAY NASAL 16GM EA NOSTRIL SCH (10:46)
[2019-12-30 11:44] LABS: Glucose,Whole Blood 95 mg/dL (75-99)
[2019-12-30 13:06] LABS: Glucose,Whole Blood 122 mg/dL (75-99)
--- NOTE | 2019-12-30 13:14 | PN ---
PROGRESS NOTE Mrs. Granados is a 69-year-old female with known history of coronary artery disease status post multivessel stenting who presented with non STEMI, underwent stenting of her RCA. She is feeling better overall. Her breathing is better. She does not have any further symptoms of dizziness. She has evidence of junctional tachycardia. She denies any palpitation. No syncope. She denies any nausea. She continues to be on aspirin once a day, Brilinta 90 mg twice a day, Lipitor 90 mg daily, duloxetine, Zetia 10 mg daily, insulin, metoprolol tartrate 25 mg twice a day. PHYSICAL EXAMINATION: Blood pressure 101/60 with a heart rate in the 60s. LUNGS: Clear. HEART: Regular rate and rhythm. S1, S2. No S3 with a systolic murmur. ABDOMEN: Soft, nontender. EXTREMITIES: Trace edema. LAB DATA: Revealed a hemoglobin 10.4, BUN and creatinine 27 and 1.1. IMPRESSION: 1. Status post stenting of the RCA with non ST elevation myocardial infarction. 2. History of multivessel stenting. 3. Junctional tachycardia. 4. History of hyperlipidemia. 5. Hypotension, resolved. RECOMMENDATION: From the cardiac standpoint she is stable on her present therapy. I would expect she should be able to be discharged home soon and followed as an outpatient. MMODL / IJN: [id number] /
[2019-12-30 16:39] LABS: Glucose,Whole Blood 118 mg/dL (75-99)
[2019-12-30 21:10] LABS: Glucose,Whole Blood 110 mg/dL (75-99)
[2019-12-30] MEDS: ATORVASTATIN 80 MG TAB PO SCH (21:11)
[2019-12-30] MEDS: FAMOTIDINE 20 MG TAB PO SCH (21:12)
[2019-12-30] MEDS: INSULIN DETEMIR (LEVEMIR) 100 UNIT/ML SYR SQ SCH (21:12)
[2019-12-31 04:05] LABS: Glucose,Whole Blood 95 mg/dL (75-99)
[2019-12-31] MEDS: LEVOTHYROXINE 112 MCG TAB PO SCH (06:51)
[2019-12-31 07:18] LABS: Glucose,Whole Blood 73 mg/dL (75-99)
[2019-12-31] MEDS: INSULIN ASPART (NovoLOG) 100 UNIT/ML VIAL SQ SCH ×8 (08:54→22:14)
[2019-12-31 09:12] LABS: Anisocytosis Slight; Basophils % (A) 0 %; Eosinophils % (A) 0 %; HCT 35.8 % (34.0-46.0); HGB 11.2 gm/dL (11.4-16.0); Hypochromasia Slight; Lymphocytes # (A) 1.6 k/uL (1.0-4.8); Lymphocytes % (A) 25 %; MCH 26.8 pg (25.0-35.0); MCHC 31.3 g/dL (31.0-37.0); MCV 85.8 fL (80.0-100.0); Mean Platelet Volume 9.8; Monocytes # (A) 0.5 k/uL (0-1.0); Monocytes % (A) 8 %; Neutrophils # (A) 3.9 k/uL (1.3-7.7); Neutrophils % (A) 64 %; Platelet Count 158 k/uL (150-450); RBC 4.18 m/uL (3.80-5.40); RDW 16.6 % (11.5-15.5); WBC 6.2 k/uL (3.8-10.6)
[2019-12-31] MEDS: DOCUSATE 100 MG CAP PO SCH (09:14)
[2019-12-31] MEDS: EZETIMIBE 10 MG TAB PO SCH (09:14)
[2019-12-31] MEDS: DULoxetine HCL 60 MG CAPSULE.DR PO SCH (09:14)
[2019-12-31] MEDS: METOPROLOL TARTRATE 25 MG TAB PO SCH ×2 (09:14→22:10)
[2019-12-31] MEDS: TICAGRELOR 90 MG TAB PO SCH ×2 (09:14→22:10)
[2019-12-31] MEDS: rOPINIRole HCL 4 MG TABLET PO SCH ×3 (09:14→22:10)
[2019-12-31] MEDS: ASPIRIN 81 MG PO SCH (09:14)
[2019-12-31] MEDS: HEPARIN SODIUM,PORCINE 5,000 UNIT/ML 1 ML VIAL SQ SCH ×2 (09:15→22:09)
[2019-12-31] MEDS: COLCHICINE 0.6 MG EACH PO SCH (09:15)
[2019-12-31 09:21] LABS: Calcium 8.7 mg/dL (8.4-10.2); Potassium 4.6 mmol/L (3.5-5.1)
[2019-12-31] MEDS: FAMOTIDINE 20 MG TAB PO SCH ×2 (09:25→22:09)
[2019-12-31] MEDS: FLUTICASONE 50MCG/SPRAY NASAL 16GM EA NOSTRIL SCH (09:25)
[2019-12-31 12:26] LABS: Glucose,Whole Blood 96 mg/dL (75-99)
--- NOTE | 2019-12-31 15:35 | PN ---
PROGRESS NOTE Mrs. Granados is a 69-year-old female who presented with a non ST-segment elevation myocardial infarction, underwent cardiac catheterization and stenting of her right coronary artery. She also has some findings suggestive of pneumonia and that has been treated. She is feeling better today. She still feels some dizziness when she changes position. She has episode of junctional tachycardia but she is in sinus mechanism. At times her heart rate is under better control. She denies any nausea or vomiting. She continues to be on aspirin once a day, Brilinta 90 mg twice a day, Lipitor 80 mg daily, Zetia 10 mg daily, insulin, metoprolol tartrate 25 mg twice a day, Provigil. PHYSICAL EXAMINATION: Blood pressure 110/59 with a heart rate in the 60s. LUNGS: Clear. HEART: Regular rate and rhythm. S1, S2. No S3 with systolic murmur. No diastolic murmur. ABDOMEN: Soft, nontender. EXTREMITIES: No edema. LAB DATA: BUN and creatinine of 28 and 1.04, potassium 4.6, hemoglobin of 11.2. IMPRESSION: 1. Non ST-segment elevation myocardial infarction, status post stenting of the right coronary artery. 2. Episode of junctional tachycardia. 3. Multivessel stenting in the past. 4. Hyperlipidemia. RECOMMENDATION: Will increase her level of activity. If she remains stable I would expect she should be able to be discharged home soon. MMODL / IJN: [id number] /
--- NOTE | 2019-12-31 15:37 | P.PN ---
Subjective Progress Note Date: 12/30/19 69 years old female with past medical history of diabetes mellitus and hydrocephalus, she is status post cardiac cath and stent placement for her coronary artery disease, depression. She just recently moved to [place] and she follow up with the [facility] there. She sees her end stapler Dr. Doyle at [place] and she has a follow-up appointment in 2 weeks. Patient presents because of chest pain Of one-day duration found to have elevated troponin and non-STEMI. Initially treated with IV heparin and later underwent cardiac cath with successful stenting of the mid right coronary artery with reduction of stenosis from 70 down to 0% patient is already on aspirin and Brillinta Postoperatively patient became hypotensive, we had to lower her blood pressure medication per end stapler team recommendation, blood pressure improved. 12/30/19 Patient is seen and evaluated sitting up in bedside chair; denies any complaint of chest pain or shortness of breath Vital signs are stable with a blood pressure 101/60 heart rate in 60s Lab review shows a WBC of 6.3, hemoglobin of 10.4 and B UN/creatinine of 27/1.1 Patient is status post cardiac catheterization with stenting of the RCA and is being maintained on DPAT; cardiology is following and recommending to continue with current medication regimen Patient remains on IV ceftriaxone for UTI with urine culture being still pending Objective - Vital Signs Vital signs: Vital Signs Temp 98.1 F 12/30/19 11:32 Pulse 62 12/30/19 11:32 Resp 16 12/30/19 11:32 BP 109/61 12/30/19 12:00 Pulse Ox 100 12/30/19 11:32 Intake & Output 12/29/19 12/30/19 12/30/19 18:59 06:59 18:59 Intake Total 610 240 Output Total 100 Balance 510 240 Weight 91.5 kg 91.9 kg Intake: Intake, IV Titration 250 Amount Sodium Chloride 0.9% 500 250 ml 500 ml @ 999 mls/hr IV .Q31M ONE Rx#:[id number] Oral 360 240 Output: Urine 100 Other: # Voids 1 1 # Bowel Movements 0 - Exam PHYSICAL EXAMINATION: GENERAL: The patient is alert and oriented x3, not in any acute distress. Well developed, well nourished. HEENT: Pupils are round and equally reacting to light. EOMI. No scleral icterus. No conjunctival pallor. Normocephalic, atraumatic. No pharyngeal erythema. No thyromegaly. CARDIOVASCULAR: S1 and S2 present. No murmurs, rubs, or gallops. PULMONARY: Chest is clear to auscultation, no wheezing or crackles. ABDOMEN: Soft, nontender, nondistended, normoactive bowel sounds. No palpable organomegaly. MUSCULOSKELETAL: No joint swelling or deformity. EXTREMITIES: No cyanosis, clubbing, or pedal edema. NEUROLOGICAL: Gross neurological examination did not reveal any focal deficits. SKIN: No rashes. - Labs CBC & Chem 7: 12/31/19 08:10 12/31/19 08:10 Labs: Abnormal Lab Results - Last 24 Hours (Table) 12/29/19 12/29/19 12/30/19 Range/Units 16:48 20:52 08:35 Hgb 10.4 L (11.4-16.0) gm/dL Hct 33.3 L (34.0-46.0) % RDW 16.8 H (11.5-15.5) % Plt Count 140 L (150-450) k/uL Lymphocytes # 0.9 L (1.0-4.8) k/uL Sodium (137-145) mmol/L BUN (7-17) mg/dL Creatinine (0.52-1.04) mg/dL Glucose (74-99) mg/dL POC Glucose (mg/dL) 264 H 158 H (75-99) mg/dL 12/30/19 12/30/19 Range/Units 08:35 13:05 Hgb (11.4-16.0) gm/dL Hct (34.0-46.0) % RDW (11.5-15.5) % Plt Count (150-450) k/uL Lymphocytes # (1.0-4.8) k/uL Sodium 132 L (137-145) mmol/L BUN 27 H (7-17) mg/dL Creatinine 1.10 H (0.52-1.04) mg/dL Glucose 151 H (74-99) mg/dL POC Glucose (mg/dL) 122 H (75-99) mg/dL Microbiology - Last 24 Hours (Table) 12/29/19 03:14 Urine Culture - Final Urine,Voided Assessment and Plan Assessment: non-STEMI. Status post cardiac cath and stenting of the RCA hypotension improved with adjusting medication Possible acute UTI Diabetes mellitus, with hypoglycemia and hyperglycemia Nonadherence to therapy History of coronary artery disease status post stent placement Depression, not an active issue Obesity with BMI of 30 Plan: 69 years old female who presents with chest pain. Follow-up recommendation by Cardiology consult. Continue with aspirin 81 mg and Brilinta. Continue with diuretics as per cardiology team. Increase in swelling and developed glucose. Follow-up blood pressure. Consult social service technician to help patient as she forgets to take medication at times Labs and medication were reviewed.. Continue same treatment. Continue with symptomatic treatment. Resume home medication. Monitor lytes and vitals. DVT and GI prophylaxis. Further recommendations depends on the clinical course of the patient DVT prophylaxis: heparin
[2019-12-31 16:51] LABS: Glucose,Whole Blood 63 mg/dL (75-99)
[2019-12-31 17:28] LABS: Glucose,Whole Blood 84 mg/dL (75-99)
[2019-12-31 21:05] LABS: Glucose,Whole Blood 168 mg/dL (75-99)
[2019-12-31] MEDS: ATORVASTATIN 80 MG TAB PO SCH (22:10)
[2019-12-31] MEDS: INSULIN DETEMIR (LEVEMIR) 100 UNIT/ML SYR SQ SCH (22:12)
[2020-01-01] MEDS: DOCUSATE 100 MG CAP PO SCH ×2 (06:48→09:41)
[2020-01-01] MEDS: INSULIN ASPART (NovoLOG) 100 UNIT/ML VIAL SQ SCH ×5 (06:52→13:13)
[2020-01-01] MEDS: LEVOTHYROXINE 112 MCG TAB PO SCH (06:52)
[2020-01-01 06:55] LABS: Glucose,Whole Blood 56 mg/dL (75-99)
[2020-01-01 07:18] LABS: Glucose,Whole Blood 78 mg/dL (75-99)
[2020-01-01 07:51] LABS: Anisocytosis Slight; Basophils % (A) 0 %; Eosinophils % (A) 0 %; HCT 34.8 % (34.0-46.0); HGB 10.9 gm/dL (11.4-16.0); Hypochromasia Slight; Lymphocytes # (A) 1.6 k/uL (1.0-4.8); Lymphocytes % (A) 31 %; MCH 27.1 pg (25.0-35.0); MCHC 31.4 g/dL (31.0-37.0); MCV 86.2 fL (80.0-100.0); Mean Platelet Volume 9.6; Monocytes # (A) 0.3 k/uL (0-1.0); Monocytes % (A) 7 %; Neutrophils % (A) 60 %; Platelet Count 157 k/uL (150-450); RBC 4.03 m/uL (3.80-5.40); RDW 16.7 % (11.5-15.5)
[2020-01-01 08:02] LABS: Calcium 8.4 mg/dL (8.4-10.2); Potassium 3.9 mmol/L (3.5-5.1)
[2020-01-01] MEDS: HEPARIN SODIUM,PORCINE 5,000 UNIT/ML 1 ML VIAL SQ SCH (09:40)
[2020-01-01] MEDS: rOPINIRole HCL 4 MG TABLET PO SCH (09:40)
[2020-01-01] MEDS: TICAGRELOR 90 MG TAB PO SCH (09:41)
[2020-01-01] MEDS: FAMOTIDINE 20 MG TAB PO SCH (09:41)
[2020-01-01] MEDS: EZETIMIBE 10 MG TAB PO SCH (09:41)
[2020-01-01] MEDS: METOPROLOL TARTRATE 25 MG TAB PO SCH (09:41)
[2020-01-01] MEDS: DULoxetine HCL 60 MG CAPSULE.DR PO SCH (09:41)
[2020-01-01] MEDS: COLCHICINE 0.6 MG EACH PO SCH (09:41)
[2020-01-01] MEDS: ASPIRIN 81 MG PO SCH (09:41)
[2020-01-01] MEDS: FLUTICASONE 50MCG/SPRAY NASAL 16GM EA NOSTRIL SCH (09:42)
[2020-01-01 10:05] LABS: Glucose,Whole Blood 196 mg/dL (75-99)
--- NOTE | 2020-01-01 10:07 | PN ---
PROGRESS NOTE Mrs. Granados is a 69-year-old female who presented with non ST-segment elevation myocardial infarction. Underwent stenting of the right coronary artery and had episode of accelerated junctional rhythm. She is feeling much better today. She is ambulating without difficulty. She denies any dizziness or palpitation. She still has episode of junctional tachycardia. She denies any nausea or vomiting. Hemodynamically, she is stable. She continues on aspirin once a day, Brilinta 90 mg twice a day, Lipitor 80 mg daily, Zetia 10 mg daily, insulin, metoprolol 25 mg twice a day. PHYSICAL EXAMINATION: Blood pressure 125/60 with a heart rate in the 50s and 60s. LUNGS: Clear. HEART: Regular rate and rhythm S1, S2. No S3 with a systolic murmur. ABDOMEN: Soft and nontender. EXTREMITIES: No edema. LAB DATA: BUN and creatinine 25 and 0.94. IMPRESSION: 1. Status post stenting of the right coronary artery in a setting of non ST-segment elevation myocardial infarction. 2. Junctional tachycardia, stable. 3. Multivessel stenting in the past. 4. Hyperlipidemia. 5. Diabetes mellitus. RECOMMENDATION: From the cardiac standpoint she is stable. I would expect she should be able to be discharged home today and followed as an outpatient. MMODL / IJN: [id number] /
[2020-01-01 10:27] VITALS: TEMP 97.8
--- NOTE | 2020-01-01 11:56 | P.PN ---
Subjective Progress Note Date: 12/31/19 Principal diagnosis: NSTEMI; status post cardiac catheterization with stent placement 69 years old female with past medical history of diabetes mellitus and hydrocephalus, she is status post cardiac cath and stent placement for her coronary artery disease, depression. She just recently moved to [place] and she follow up with the [facility] there. She sees her sack cleaning hand Dr. Doyle at [place] and she has a follow-up appointment in 2 weeks. Patient presents because of chest pain Of one-day duration found to have elevated troponin and non-STEMI. Initially treated with IV heparin and later underwent cardiac cath with successful stenting of the mid right coronary artery with reduction of stenosis from 70 down to 0% patient is already on aspirin and Brillinta Postoperatively patient became hypotensive, we had to lower her blood pressure medication per sack cleaning hand team recommendation, blood pressure improved. 12/30/19 Patient is seen and evaluated sitting up in bedside chair; denies any complaint of chest pain or shortness of breath Vital signs are stable with a blood pressure 101/60 heart rate in 60s Lab review shows a WBC of 6.3, hemoglobin of 10.4 and B UN/creatinine of 27/1.1 Patient is status post cardiac catheterization with stenting of the RCA and is being maintained on DPAT; cardiology is following and recommending to continue with current medication regimen Patient remains on IV ceftriaxone for UTI with urine culture being still pending 12/31/2019 Patient is seen and evaluated ambulating in the room; reports marked improvement in breathing and denies any chest pain Labs are stable with a B UN/creatinine of 28/1.04, potassium of 4.6; cardiology on board and recommending to increase activity with possibility of discharge in next 24 hours if remains stable; continue with current IV antibiotics; urine culture is growing skin or genital hallie; we will continue with 3-D of cough and empiric IV antibiotic treatment with no oral antibiotics at time of discharge Objective - Vital Signs Vital signs: Vital Signs Temp 98 F 12/31/19 08:15 Pulse 58 L 12/31/19 12:30 Resp 17 12/31/19 12:30 BP 121/69 12/31/19 12:30 Pulse Ox 99 12/31/19 12:30 Intake & Output 12/30/19 12/31/19 12/31/19 18:59 06:59 18:59 Intake Total 720 125 Balance 720 125 Weight 92.5 kg Intake: Oral 720 125 Other: # Voids 3 3 1 - Exam PHYSICAL EXAMINATION: GENERAL: The patient is alert and oriented x3, not in any acute distress. Well developed, well nourished. HEENT: Pupils are round and equally reacting to light. EOMI. No scleral icterus. No conjunctival pallor. Normocephalic, atraumatic. No pharyngeal erythema. No thyromegaly. CARDIOVASCULAR: S1 and S2 present. No murmurs, rubs, or gallops. PULMONARY: Chest is clear to auscultation, no wheezing or crackles. ABDOMEN: Soft, nontender, nondistended, normoactive bowel sounds. No palpable organomegaly. MUSCULOSKELETAL: No joint swelling or deformity. EXTREMITIES: No cyanosis, clubbing, or pedal edema. NEUROLOGICAL: Gross neurological examination did not reveal any focal deficits. SKIN: No rashes. - Labs CBC & Chem 7: 01/01/20 07:21 01/01/20 07:19 Labs: Abnormal Lab Results - Last 24 Hours (Table) 12/30/19 12/30/19 12/31/19 Range/Units 16:36 21:08 07:15 Hgb (11.4-16.0) gm/dL RDW (11.5-15.5) % Sodium (137-145) mmol/L BUN (7-17) mg/dL POC Glucose (mg/dL) 118 H 110 H 73 L (75-99) mg/dL 12/31/19 12/31/19 Range/Units 08:10 08:10 Hgb 11.2 L (11.4-16.0) gm/dL RDW 16.6 H (11.5-15.5) % Sodium 135 L (137-145) mmol/L BUN 28 H (7-17) mg/dL POC Glucose (mg/dL) (75-99) mg/dL Assessment and Plan Assessment: non-STEMI. Status post cardiac cath and stenting of the RCA hypotension improved with adjusting medication Possible acute UTI Diabetes mellitus, with hypoglycemia and hyperglycemia Nonadherence to therapy History of coronary artery disease status post stent placement Depression, not an active issue Obesity with BMI of 30 Plan: 69 years old female who presents with chest pain. Follow-up recommendation by Cardiology consult. Continue with aspirin 81 mg and Brilinta. Continue with diuretics as per cardiology team. Increase in swelling and developed glucose. Follow-up blood pressure. Consult social media job titles to help patient as she forgets to take medication at times Labs and medication were reviewed.. Continue same treatment. Continue with symptomatic treatment. Resume home medication. Monitor lytes and vitals. DVT and GI prophylaxis. Further recommendations depends on the clinical course of the patient DVT prophylaxis: heparin
[2020-01-01 12:11] LABS: Glucose,Whole Blood 148 mg/dL (75-99)
[2020-01-01 13:24] VITALS: BP 110/65; PULSE 60; RESP 17
--- NOTE | 2020-01-03 09:46 | CDI ---
Documentation Clarification Form Date: 01/03/20 From: Swati Singleton Phone: If you have a question about this query, please contact Lesly Keith, Professor Of Business Administration at [phone] between 8am and 5pm. Admit Date: 12/27/19 Discharge Date: 01/01/20 Patient Name: BARBARA CHEN Visit Number: [id number] ATTENTION: The Clinical Documentation Specialists (CDI) and [facility] Coding Staff appreciate your assistance in clarifying documentation. Please respond to the clarification below the line at the bottom and electronically sign. The CDI & [facility] Coding staff will review the response and follow-up if needed. Please note: Queries are made part of the Legal Health Record. If you have any questions, please contact the author of this message via ITS. Dear Dr. Cortez Samano, Junctional tachycardia with episode of hypotension is documented in the progress notes 12/28, 12/29 & 12/30. Patients Admitting Diagnosis: NSTEMI Post-Operative Diagnosis: NSTEMI w in-stent coronary artery stent Procedure performed: [facility] w coronary angiography w PTCA w druge-eluding stent History/Risk Factors: CAD, cardiomyopathy, DM w hypoglycemia & hyperglycemia Clinical history: Postoperatively patient became hypotensive, we had to lower her blood pressure medication per nursing home admissions director team recommendation, blood pressure improved (12/[address] Sheet). Patients B/P: Unspec-12/28-96/71; Left-12/27-87/55, 86/53, 82/64, 82/53, 12/28- 91/57, 90/66, 95/58, 87/56, 99/60, 99/66, 99/66, 12/29-94/56, 89/58, 92/64 Treatment: Armand inhibitor held, fluid bolus given In order to accurately reflect this patients severity of illness, please clarify if the postprocedural hypotension: -has been ruled out -is a complication of surgical procedure -is an expected outcome of the surgical procedure -is related to co-morbid condition(s) of -Other please specify -Unable to determine Unable to determine MTDD
== END 2020-01-01 14:06 | disposition home or self-care (01) | DRG 246 ==
LOC: EC 07:07 → 3SCARD 08:42
PROVIDERS: ADMIT Internal Medicine; ATTEND Internal Medicine
PROC: B2111ZZ Fluoroscopy of Multiple Coronary Arteries using Low Osmolar Contrast (ICD-10-PCS; principal; 2019-12-27 16:35)
PROC: 027034Z Dilation of Coronary Artery, One Artery with Drug-eluting Intraluminal Device, Percutaneous Approach (ICD-10-PCS; principal; 2019-12-27 16:35)
PROC: 4A023N7 Measurement of Cardiac Sampling and Pressure, Left Heart, Percutaneous Approach (ICD-10-PCS; principal; 2019-12-27 16:35)
DX: T82.855A Stenosis of coronary artery stent, initial encounter (principal); I21.4 Non-ST elevation (NSTEMI) myocardial infarction; G91.9 Hydrocephalus, unspecified; I42.9 Cardiomyopathy, unspecified; I47.1 Supraventricular tachycardia; N39.0 Urinary tract infection, site not specified; E11.649 Type 2 diabetes mellitus with hypoglycemia without coma; I95.9 Hypotension, unspecified; E11.65 Type 2 diabetes mellitus with hyperglycemia; Z79.4 Long term (current) use of insulin; I11.9 Hypertensive heart disease without heart failure; Z20.828 Contact with and (suspected) exposure to other viral communicable diseases; I45.10 Unspecified right bundle-branch block; F32.9 Major depressive disorder, single episode, unspecified; E78.5 Hyperlipidemia, unspecified; I25.10 Atherosclerotic heart disease of native coronary artery without angina pectoris; E66.9 Obesity, unspecified; Z68.30 Body mass index [BMI] 30.0-30.9, adult; H92.02 Otalgia, left ear; R49.0 Dysphonia; R42 Dizziness and giddiness; Z79.82 Long term (current) use of aspirin; Z79.890 Hormone replacement therapy; Z79.02 Long term (current) use of antithrombotics/antiplatelets; Z79.899 Other long term (current) drug therapy; Z95.5 Presence of coronary angioplasty implant and graft; Z71.3 Dietary counseling and surveillance; Z98.51 Tubal ligation status; Z87.39 Personal history of other diseases of the musculoskeletal system and connective tissue; Z98.890 Other specified postprocedural states; Y84.0 Cardiac catheterization as the cause of abnormal reaction of the patient, or of later complication, without mention of misadventure at the time of the procedure; Y92.009 Unspecified place in unspecified non-institutional (private) residence as the place of occurrence of the external cause; Z88.0 Allergy status to penicillin
CPT/HCPCS: 36415; 71046; 80048; 80053; 80061; 81001; 83036; 83735; 84443; 84484; 85025; 85347; 85610; 85730; 87086; 93005; 93306; 93458; 96365; 96366; 96375; 96376; 99291

== ENCOUNTER 2020-01-13 13:19 | Observation (INO) | payer MEDICARE, OTHER ==
[2020-01-13] MEDS ORDERED: SODIUM CHLORIDE 0.9% 500 ML 500 ML IV ONE (13:48)
--- NOTE | 2020-01-13 14:19 | ED ---
General Adult HPI - General Chief complaint: Dizziness Stated complaint: low BP Time Seen by Provider: 01/13/20 13:25 Source: patient, EMS, RN notes reviewed, old records reviewed Mode of arrival: EMS - History of Present Illness Initial comments: This is a 69-year-old female presents emergency Department because she states she's been feeling dizzy since she was at her doctor's office. Patient states he took her blood pressure was closely center by EMS. Patient states she's feeling back to her baseline currently. Patient states she has an issue with her dizziness in the past and was in the hospital recently for similar low blood pressures. Patient states she has no chest pain difficulty breathing shortest breath per patient denies any palpitations. Patient denies any recent fever chills or cough per patient denies headache patient denies any numbness or weakness. Patient denies abdominal pain patient denies nausea vomiting diarrhea. She does not get enough fluid because she doesn't like to urinate often. - Related Data Home Medications Medication Instructions Recorded Confirmed Aspirin [Adult Low Dose Aspirin EC] 81 mg PO HS 08/11/17 01/13/20 Colchicine [Colcrys] 0.6 mg PO DAILY 08/11/17 01/13/20 Insulin Detemir (Levemir) [Levemir] 38 unit SQ HS 08/11/17 01/13/20 Lidocaine 5% Oint [Xylocaine 5% 1 applic TOPICAL HS PRN 08/11/17 01/13/20 Oint] Nitroglycerin Sl Tabs [Nitrostat] 0.4 mg SUBLINGUAL Q5M PRN 08/11/17 01/13/20 Ticagrelor [Brilinta] 90 mg PO BID 08/11/17 01/13/20 Ascorbic Acid [Vitamin C] 500 mg PO DAILY 12/27/19 01/13/20 Atorvastatin Calcium [Lipitor] 80 mg PO HS 12/27/19 01/13/20 DULoxetine HCL [Cymbalta] 60 mg PO DAILY 12/27/19 01/13/20 Desloratadine [Clarinex] 5 mg PO DAILY 12/27/19 01/13/20 Docusate [Colace] 100 mg PO BID 12/27/19 01/13/20 Ezetimibe [Zetia] 10 mg PO DAILY 12/27/19 01/13/20 Fluticasone Nasal [place] [Flonase 2 spr EA NOSTRIL DAILY 12/27/19 01/13/20 Nasal [place]] HYDROcodone/APAP 5-325MG [[place] 1 tab PO Q4HR PRN 12/27/19 01/13/20 5-325] Insulin Lispro [humaLOG Kwikpen] See Protocol SQ AC-TID 12/27/19 01/13/20 Isosorbide Mononitrate ER [Imdur] 30 mg PO DAILY 12/27/19 01/13/20 Levothyroxine Sodium [Synthroid] 112 mcg PO DAILY 12/27/19 01/13/20 Lisinopril [Zestril] 10 mg PO DAILY 12/27/19 01/13/20 Magnesium Oxide [Mag-Ox] 400 mg PO BID 12/27/19 01/13/20 Mirtazapine [Remeron] 15 mg PO HS 12/27/19 01/13/20 Multivitamins, Thera [Multivitamin 1 tab PO DAILY 12/27/19 01/13/20 (formulary)] Sennosides [Senna] 17.2 mg PO HS 12/27/19 01/13/20 hydrOXYzine HCL [Atarax] 10 mg PO DAILY 12/27/19 01/13/20 methocarbamoL [Robaxin] 750 mg PO QID PRN 12/27/19 01/13/20 modafiniL [Provigil] 200 mg PO DAILY 12/27/19 01/13/20 rOPINIRole HCL [Requip] 4 mg PO TID 12/27/19 01/13/20 sitaGLIPtin PHOS/metFORMIN HCL 1 tab PO BID 12/27/19 01/13/20 [Janumet 50-1,000 mg Tablet] Previous Rx's Medication Instructions Recorded Metoprolol Tartrate [Lopressor] 25 mg PO BID #60 tab 01/01/20 Allergies Allergy/AdvReac Type Severity Reaction Status Date / Time Penicillins Allergy Rash/Hives Verified 01/13/20 14:05 Review of Systems ROS Statement: Those systems with pertinent positive or pertinent negative responses have been documented in the HPI. ROS Other: All systems not noted in ROS Statement are negative. Past Medical History Past Medical History: Chest Pain / Angina, Diabetes Mellitus, Sleep Apnea/CPAP/BIPAP Additional Past Medical History / Comment(s): hydrocephalus, back surgery "a couple of months ago." History of Any Multi-Drug Resistant Organisms: None Reported Past Surgical History: Heart Catheterization With Stent, Orthopedic Surgery, Tubal Ligation Additional Past Surgical History / Comment(s): CARDIAC CATH with 3 stents placed Past Anesthesia/Blood Transfusion Reactions: No Reported Reaction Date of Last Stent Placement:: 12/27/19 Past Psychological History: Depression Smoking Status: Never smoker Past Alcohol Use History: Occasional Past Drug Use History: None Reported - Past Family History Father History Unknown: Yes Mother History Unknown: Yes General Exam - General Exam Comments Initial Comments: GENERAL: Patient is well-developed and well-nourished. Patient is nontoxic and well- hydrated and is in mild distress. ENT: Neck is soft and supple. No significant lymphadenopathy is noted. Oropharynx is clear. Moist mucous membranes. Neck has full range of motion without eliciting any pain. EYES: The sclera were anicteric and conjunctiva were pink and moist. Extraocular movements were intact and pupils were equal round and reactive to light. Eyelids were unremarkable. PULMONARY: Unlabored respirations. Good breath sounds bilaterally. No audible rales rhonchi or wheezing was noted. CARDIOVASCULAR: There is a regular rate and rhythm without any murmurs gallops or rubs. ABDOMEN: Soft and nontender with normal bowel sounds. SKIN: Skin is clear with no lesions or rashes and otherwise unremarkable. NEUROLOGIC: Patient is alert and oriented x3. Cranial nerves II through XII are grossly intact. Motor and sensory are also intact. Normal speech, volume and content. Symmetrical smile. MUSCULOSKELETAL: Normal extremities with adequate strength and full range of motion. LYMPHATICS: No significant lymphadenopathy is noted PSYCHIATRIC: Normal psychiatric evaluation. Course Vital Signs 01/13/20 01/13/20 13:21 14:30 Temperature 98.4 F Pulse Rate 64 Pulse Rate [ 68 Left Sitting] Pulse Rate [ 72 Left Standing] Pulse Rate [ 65 Left Supine] Respiratory 18 Rate Blood Pressure 131/84 Blood Pressure 115/62 [Left Arm Sitting] Blood Pressure 126/76 [Left Arm Standing] Blood Pressure 87/53 [Left Arm Supine] O2 Sat by Pulse 100 Oximetry Medical Decision Making - Medical Decision Making EKG shows ventricular rate of 60 beats a minute QRS is 136 QT interval is 470 QTC is 470. Patient has no P waves that are noted. After patient received a liter and half of fluid she remained hypotensive in the supine position. I spoke with Dr. Ibarra he agreed to admit the patient admitted the patient I wrote admitting orders. I spoke with Dr. Hooks and asked him to review the EKG however he thought it best just to admit the patient admitted the patient and the neurology stroke physician will be consulted. - Lab Data Result diagrams: 01/13/20 14:09 01/13/20 14:09 Lab Results 01/13/20 01/13/20 Range/Units 14:09 14:09 WBC 7.7 (3.8-10.6) k/uL RBC 3.83 (3.80-5.40) m/uL Hgb 10.6 L (11.4-16.0) gm/dL Hct 33.0 L (34.0-46.0) % MCV 86.1 (80.0-100.0) fL MCH 27.6 (25.0-35.0) pg MCHC 32.1 (31.0-37.0) g/dL RDW 16.7 H (11.5-15.5) % Plt Count 168 (150-450) k/uL Neutrophils % 73 % Lymphocytes % 18 % Monocytes % 6 % Eosinophils % 0 % Basophils % 0 % Neutrophils # 5.6 (1.3-7.7) k/uL Lymphocytes # 1.4 (1.0-4.8) k/uL Monocytes # 0.4 (0-1.0) k/uL Eosinophils # 0.0 (0-0.7) k/uL Basophils # 0.0 (0-0.2) k/uL Hypochromasia Slight Anisocytosis Slight Sodium 137 (137-145) mmol/L Potassium 4.0 (3.5-5.1) mmol/L Chloride 107 (98-107) mmol/L Carbon Dioxide 25 (22-30) mmol/L Anion Gap 5 mmol/L BUN 17 (7-17) mg/dL Creatinine 0.70 (0.52-1.04) mg/dL Est GFR (CKD-EPI)AfAm >90 (>60 ml/min/1.73 sqM) Est GFR (CKD-EPI)NonAf 88 (>60 ml/min/1.73 sqM) Glucose 168 H (74-99) mg/dL Calcium 8.4 (8.4-10.2) mg/dL Total Bilirubin 0.4 (0.2-1.3) mg/dL AST 24 (14-36) U/L ALT 20 (4-34) U/L Alkaline Phosphatase 101 (38-126) U/L Total Protein 5.7 L (6.3-8.2) g/dL Albumin 3.2 L (3.5-5.0) g/dL Disposition Clinical Impression: Hypotension, Ventricular rhythm Disposition: ADMITTED IP TO THIS HOSP Referrals: Medhat Asif DO [Primary Care Provider] - 1-2 days Time of Disposition: 14:54
[2020-01-13 14:22] LABS: Anisocytosis Slight; Basophils % (A) 0 %; Eosinophils % (A) 0 %; HGB 10.6 gm/dL (11.4-16.0); Hypochromasia Slight; Lymphocytes # (A) 1.4 k/uL (1.0-4.8); Lymphocytes % (A) 18 %; MCH 27.6 pg (25.0-35.0); MCHC 32.1 g/dL (31.0-37.0); MCV 86.1 fL (80.0-100.0); Mean Platelet Volume 8.6; Monocytes # (A) 0.4 k/uL (0-1.0); Monocytes % (A) 6 %; Neutrophils # (A) 5.6 k/uL (1.3-7.7); Neutrophils % (A) 73 %; Platelet Count 168 k/uL (150-450); RBC 3.83 m/uL (3.80-5.40); RDW 16.7 % (11.5-15.5); WBC 7.7 k/uL (3.8-10.6)
[2020-01-13 14:39] LABS: ALT 20 U/L (4-34); AST 24 U/L (14-36); African American GFR (CKD) >90 (>60 ml/min/1.73 sqM); Albumin 3.2 g/dL (3.5-5.0); Alkaline Phosphatase 101 U/L (38-126); Anion Gap 5 mmol/L; Blood Urea Nitrogen 17 mg/dL (7-17); Calcium 8.4 mg/dL (8.4-10.2); Carbon Dioxide 25 mmol/L (22-30); Chloride 107 mmol/L (98-107); Glucose 168 mg/dL (74-99); Non-African American GFR(CKD) 88 (>60 ml/min/1.73 sqM); Sodium 137 mmol/L (137-145); Total Bilirubin 0.4 mg/dL (0.2-1.3); Total Protein 5.7 g/dL (6.3-8.2)
[2020-01-13] MEDS ORDERED: SODIUM CHLORIDE 0.9% 1,000 ML IV ONE (14:55)
[2020-01-13 15:00] LABS: Appearance,Urine Cloudy (Clear); Bilirubin,Urine Negative (Negative); Blood,Urine Negative (Negative); Budding Yeast,Urine Moderate /hpf; Color,Urine Yellow; Glucose,Urine (UA) Negative (Negative); Hyaline Casts,Urine 3 /lpf (0-2); Ketones,Urine Negative (Negative); Leukocyte Esterase,Urine Large (Negative); Mucus,Urine Rare /hpf; Nitrite,Urine Negative (Negative); PH, Urine 6.5 (5.0-8.0); Protein,Urine 1+ (Negative); RBC,Urine 52 /hpf (0-5); Specific Gravity,Urine 1.025 (1.001-1.035); Squamous Epithelial Cell,Urine 10 /hpf (0-4); WBC,Urine 41 /hpf (0-5)
[2020-01-13 16:11] LABS: Glucose,Whole Blood 146 mg/dL (75-99)
[2020-01-13] MEDS ORDERED: NITROGLYCERIN SL TABS 0.4 MG TAB SUBLINGUAL PRN (17:03)
[2020-01-13] MEDS ORDERED: methocarbamoL 750 MG TAB PO PRN (17:05)
[2020-01-13] MEDS ORDERED: HYDROcodone/APAP 5-325MG 1 EACH TAB PO PRN (17:05)
[2020-01-13] MEDS: INSULIN ASPART (NovoLOG) 100 UNIT/ML VIAL SQ SCH ×2 (17:31→20:38)
[2020-01-13] MEDS ORDERED: ONDANSETRON 4 MG/2 ML VIAL IVP PRN (18:56)
[2020-01-13] MEDS ORDERED: ACETAMINOPHEN TAB 325 MG TAB PO PRN (18:57)
[2020-01-13] MEDS ORDERED: ALPRAZolam 0.25 MG TAB PO PRN (19:07)
[2020-01-13 20:15] LABS: Glucose,Whole Blood 259 mg/dL (75-99)
[2020-01-13] MEDS: METOPROLOL TARTRATE 12.5 MG TAB PO SCH (20:30)
[2020-01-13] MEDS: DOCUSATE 100 MG CAP PO SCH (20:32)
[2020-01-13] MEDS: metFORMIN 500 MG TAB PO SCH (20:32)
[2020-01-13] MEDS: ASPIRIN 81 MG PO SCH (20:32)
[2020-01-13] MEDS: MAGNESIUM OXIDE 400 MG TAB PO SCH (20:32)
--- NOTE | 2020-01-13 20:32 | HP ---
HISTORY AND PHYSICAL CHIEF COMPLAINTS: Dizziness and hypotension. HISTORY OF PRESENT ILLNESS: This 69-year-old woman with a past medical history of multiple medical problems, including chest pain, diabetes mellitus, sleep apnea, hydrocephalus, back surgery and DJD, recently moved to the [facility] and was admitted 2 weeks ago to [facility] with features of myocardial infarction. Patient underwent cardiac catheterization and stenting of the RCA. The patient's medication was adjusted. Cardiology saw the patient. Patient also had acute UTI during the presentation. Patient improved significantly. Patient was discharged home. Today the patient was at the doctor's office being checked and the patient was feeling somewhat dizzy. The blood pressure was found to be 60/40, and because of non-improvement in symptoms, EMS was called and the patient was transferred to [facility] for further evaluation and treatment. The patient had IV fluid and boluses. The blood pressure improved to 98/55. Minimal orthostatic changes were noted. There is no history of any fever, rigor or chills. No history of headache, loss of consciousness, seizures. No chest pain. No palpitations. The troponin was found to be 0.042 as a trailing edge of the previous troponin elevation, indicating a recent [id number]-elevation myocardial infarction. Patient had features of UTI. There is no history of fever, rigors, chills at this time. The patient is taking beta blockers. The patient also complains of leg edema. PAST MEDICAL HISTORY: History of recent myocardial infarction and stenting of the RCA, diabetes mellitus, type 2, sleep apnea, hydrocephalus, back surgery. HOME MEDICATIONS: Lasix 20 mg daily, Janumet, Requip, Robaxin, Atarax, Brilinta, Senna, Nitrostat, multivitamins, Remeron, Lopressor, magnesium oxide, Zestril, xylocaine, Synthroid, Imdur, Humalog, Levemir, Flonase, Zetia, Colace, Clarinex, Cymbalta, Colcrys, Lipitor, aspirin, vitamin C. Doses are reviewed. PHYSICAL EXAMINATION: Patient is alert, oriented x3. Pulse is 72, blood pressure 106/61, respirations 16, temperature 97.7, pulse ox 98% on room air. HEENT: Conjunctivae normal. Oral mucosa moist. NECK: No jugular venous distention. No carotid bruit. No lymph node enlargement. CARDIOVASCULAR SYSTEM: S1, S2 muffled. RESPIRATORY SYSTEM: Breath sounds diminished at the bases. A few scattered rhonchi and crackles. ABDOMEN: Soft, non-tender. No mass palpable. LEGS: Bilateral leg edema. NERVOUS SYSTEM: Higher functions as mentioned earlier. Moves all 4 limbs. No focal motor or sensory deficit. LYMPHATICS: No lymph node palpable in neck, axillae or groin. SKIN: No ulcer, rash, bleeding. JOINTS: No active deforming arthropathy. EKG shows possibly right bundle block, wide-complex QRS complexes and possibly junctional rhythm. ASSESSMENT: 1. Possible hypotension and cardiogenic shock and dizziness. 2. Junctional rhythm with right bundle block. 3. Diabetes mellitus, type 2. 4. Sleep apnea, on CPAP. 5. History of hydrocephalus. 6. History of recent acute brv-[id number]-elevation myocardial infarction and stenting of the right coronary artery. 7. History of back surgery. 8. History of knee surgery. 9. History of coronary artery disease, stent. 10.History of depression. 11.Congestive heart failure with chronic systolic dysfunction with ejection fraction 45% to 50%. RECOMMENDATIONS AND DISCUSSION: In this 69-year-old woman who presented with multiple complex medical issues, we will monitor the patient closely, continue the current medications, continue symptomatic treatment. I recommend stopping the beta blockers. Cautious IV fluids. I would do a chest x-ray to evaluate the fluid status. Otherwise, continue the rest of the medications. As mentioned earlier, the troponin elevation is probably the trailing edge of the previous recent mdm-[id number]-elevation myocardial infarction. We will monitor the blood sugars closely, scale, and continue with anti-platelet agents. Cardiology consultation. Guarded prognosis because of multiple complex medical issues. Further recommendations to follow. A copy of this dictation is being forwarded to Dr. Asif, who is the primary physician. MMODL / IJN: [id number] / [facility]
[2020-01-13] MEDS: LINAGLIPTIN 5 MG TABLET PO SCH (20:33)
[2020-01-13] MEDS: ATORVASTATIN 80 MG TAB PO SCH (20:33)
[2020-01-13] MEDS: MIRTAZAPINE 15 MG TAB PO SCH (20:33)
[2020-01-13] MEDS: TICAGRELOR 90 MG TAB PO SCH (20:33)
[2020-01-13] MEDS: SENNOSIDES 8.6 MG TAB PO SCH (20:34)
[2020-01-13] MEDS: LORATADINE 10 MG TAB PO SCH (20:34)
[2020-01-13] MEDS: INSULIN DETEMIR (LEVEMIR) 100 UNIT/ML SYR SQ SCH (20:35)
[2020-01-13] MEDS: HEPARIN SODIUM,PORCINE 5,000 UNIT/ML 1 ML VIAL SQ SCH (20:35)
[2020-01-13] MEDS ORDERED: NON FORMULARY DRUG (Sitagliptin Phos/Metformin Hcl [Janumet 50-1,000 Mg Tablet] 1 EACH Tab PO SCH (21:00)
[2020-01-13] MEDS: LIDOCAINE 5% OINTMENT 50 GM JAR TOPICAL PRN (21:55)
[2020-01-13] MEDS: rOPINIRole HCL 4 MG TABLET PO SCH (21:55)
[2020-01-14 06:33] LABS: Glucose,Whole Blood 197 mg/dL (75-99)
[2020-01-14] MEDS: INSULIN ASPART (NovoLOG) 100 UNIT/ML VIAL SQ SCH ×4 (06:48→20:35)
[2020-01-14] MEDS: PANTOPRAZOLE 40 MG TABLET PO SCH (06:48)
[2020-01-14] MEDS: LEVOTHYROXINE 112 MCG TAB PO SCH (06:48)
[2020-01-14 08:14] LABS: Anisocytosis Slight; Basophils % (A) 0 %; Eosinophils % (A) 0 %; HCT 32.1 % (34.0-46.0); HGB 10.2 gm/dL (11.4-16.0); Hypochromasia Slight; Lymphocytes # (A) 1.3 k/uL (1.0-4.8); Lymphocytes % (A) 25 %; MCH 27.5 pg (25.0-35.0); MCHC 31.7 g/dL (31.0-37.0); MCV 86.9 fL (80.0-100.0); Mean Platelet Volume 8.9; Monocytes # (A) 0.3 k/uL (0-1.0); Monocytes % (A) 6 %; Neutrophils # (A) 3.3 k/uL (1.3-7.7); Neutrophils % (A) 66 %; Platelet Count 155 k/uL (150-450); RDW 16.9 % (11.5-15.5)
[2020-01-14 08:27] LABS: African American GFR (CKD) >90 (>60 ml/min/1.73 sqM); Anion Gap 6 mmol/L; Blood Urea Nitrogen 15 mg/dL (7-17); Calcium 8.4 mg/dL (8.4-10.2); Carbon Dioxide 24 mmol/L (22-30); Chloride 107 mmol/L (98-107); Glucose 174 mg/dL (74-99); Non-African American GFR(CKD) 90 (>60 ml/min/1.73 sqM); Potassium 4.2 mmol/L (3.5-5.1); Sodium 137 mmol/L (137-145)
[2020-01-14] MEDS ORDERED: lisinopriL 10 MG TAB PO SCH (09:00)
[2020-01-14] MEDS ORDERED: ISOSORBIDE MONONITRATE ER 30 MG TAB.ER.24H PO SCH (09:00)
[2020-01-14] MEDS ORDERED: FUROSEMIDE 20 MG TAB PO SCH (09:00)
[2020-01-14] MEDS ORDERED: hydrOXYzine HCL 10 MG TAB PO SCH (09:00)
[2020-01-14] MEDS: METOPROLOL TARTRATE 12.5 MG TAB PO SCH ×2 (09:03→20:24)
[2020-01-14] MEDS: MAGNESIUM OXIDE 400 MG TAB PO SCH ×2 (09:26→20:24)
[2020-01-14] MEDS: FLUTICASONE 50MCG/SPRAY NASAL 16GM EA NOSTRIL SCH (09:26)
[2020-01-14] MEDS: ASCORBIC ACID 500 MG TAB PO SCH (09:26)
[2020-01-14] MEDS: MULTIVITAMINS, THERA 1 EACH TAB PO SCH (09:26)
[2020-01-14] MEDS: HEPARIN SODIUM,PORCINE 5,000 UNIT/ML 1 ML VIAL SQ SCH ×2 (09:26→20:25)
[2020-01-14] MEDS: metFORMIN 500 MG TAB PO SCH ×2 (09:26→20:24)
[2020-01-14] MEDS: DULoxetine HCL 60 MG CAPSULE.DR PO SCH (09:26)
[2020-01-14] MEDS: TICAGRELOR 90 MG TAB PO SCH ×2 (09:27→20:24)
[2020-01-14] MEDS: COLCHICINE 0.6 MG EACH PO SCH (09:27)
[2020-01-14] MEDS: rOPINIRole HCL 4 MG TABLET PO SCH ×3 (09:27→20:25)
[2020-01-14] MEDS: EZETIMIBE 10 MG TAB PO SCH (09:27)
[2020-01-14] MEDS: DOCUSATE 100 MG CAP PO SCH ×2 (09:27→20:30)
[2020-01-14 12:01] LABS: Glucose,Whole Blood 247 mg/dL (75-99)
[2020-01-14] MEDS ORDERED: FUROSEMIDE 20 MG TAB PO STA (15:08)
--- NOTE | 2020-01-14 15:10 | P.CRDCN ---
History of Present Illness History of present illness: HISTORY OF PRESENTING ILLNESS This is a pleasant 69-year-old female past medical history significant for coronary artery disease status post recent PCI to the mid RCA where she had some in-stent restenosis from a previous stent placement, ischemic cardiomyopathy with ejection fraction of 45%, hypertension, dyslipidemia, diabetes mellitus and recent non-ST elevated myocardial infarction 12/27/2019 and junctional tachycardia. She follows in the office with Dr. Ruiz. We have been asked to see in consultation for dizziness and hypotension. She states since suffering her heart attack and having her stent placed she has noticed a steady increase in her generalized edema. She has lower extremity edema as well as edema in her hands. She was at her PCPs office yesterday following up after her recent hospitalization and states that she was sitting on the bed when she started feeling dizzy and lightheaded. Her blood pressure was checked and came to be quite low. She states she was pale and diaphoretic. EMS was called. She was given fluids by EMS and started feeling better in route. On arrival here blood pressure was 131/84 with a heart rate of 64. Antihypertensive regimen has been held since admission and her blood pressure this morning was 133/61 with a heart rate of 78. She denies symptoms of chest pain, shortness of breath, current dizziness or palpitations. DIAGNOSTICS EKG reveals right bundle branch block junctional rhythm heart rate of 60. Laboratory reviewed, WBC 5.0, hemoglobin 10.2, platelets 155, sodium 137, potassium 4.2, creatinine 0.67, troponin 0.042. Troponin is trending down from previous infarction. Current cardiac medications include aspirin 81 mg daily, atorvastatin 80 mg daily, Zetia 10 mg daily, Imdur 30 mg daily, lisinopril 10 mg daily, metoprolol 25 mg twice a day, Lasix 20 mg daily and brilinta 90 mg BID. Most recent echocardiogram obtained 12/27/2019 revealed mildly impaired LV systolic function with ejection fraction 45-50%, apical anterior, apical lateral, apical inferior and apical septal wall motion hypokinesia. REVIEW OF SYSTEMS At the time of my exam: CONSTITUTIONAL: Denies fever or chills. CARDIOVASCULAR: Denies chest pain, shortness of breath, orthopnea, PND or palpitations. RESPIRATORY: Denies cough. GASTROINTESTINAL: Denies abdominal pain, diarrhea, constipation, nausea or vomiting. MUSCULOSKELETAL: Denies myalgias. NEUROLOGIC: Denies numbness, tingling or weakness. ENDOCRINE: Denies fatigue, weight change, polydipsia or polyurina. GENITOURINARY: Denies burning, hematuria or urgency with micturation. HEMATOLOGIC: Denies history of anemia or bleeding. PHYSICAL EXAMINATION CONSTITUTIONAL: No apparent distress. HEENT: Head is normocephalic. Pupils are equal, round. Sclerae anicteric. Mucous membranes of the mouth are moist. No JVD. No carotid bruit. CHEST EXAMINATION: Lungs are clear to auscultation. No chest wall tenderness is noted on palpation or with deep breathing. HEART EXAMINATION: Regular rate and rhythm. S1, S2 heard. No murmurs, gallops or rub. ABDOMEN: Soft, nontender. Positive bowel sounds. EXTREMITIES: 2+ peripheral pulses, 1+ bilateral lower extremity pitting edema and no calf tenderness. NEUROLOGIC EXAMINATION: Patient is awake, alert and oriented x3. ASSESSMENT Near syncope secondary to hypotension Hypotension Recent non-ST elevated myocardial infarction status post PCI to the RCA maintained on dual antiplatelet therapy Diabetes mellitus Dyslipidemia Hypertension History of junctional rhythm PLAN Continue dual antiplatelet therapy as previously ordered. Decrease lisinopril to 5 mg daily and lopressor has also been decreased by primary care tem. Increase lasix to 40 mg daily. Obtain baseline chest xray and NTproBNP. Continue to monitor blood pressures and check orthostatic changes. Further recommendations to follow based upon clinical course. Thank you kindly for this consultation. Nurse Practitioner note has been reviewed, I agree with a documented findings and plan of care. Patient was seen and examined. 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 Additional Past Medical History / Comment(s): hydrocephalus, back surgery "a couple of months ago." knee surgery, stent november 2019 History of Any Multi-Drug Resistant Organisms: None Reported Past Surgical History: Heart Catheterization With Stent, Orthopedic Surgery, Tubal Ligation Additional Past Surgical History / Comment(s): CARDIAC CATH with 3 stents placed Past Anesthesia/Blood Transfusion Reactions: No Reported Reaction, Postoperative Nausea & Vomiting (PONV) Date of Last Stent Placement:: 12/27/19 Past Psychological History: Depression Smoking Status: Never smoker Past Alcohol Use History: Occasional Past Drug Use History: None Reported - Past Family History Father History Unknown: Yes Family Medical History: Congestive Heart Failure (CHF) Mother History Unknown: Yes Family Medical History: Congestive Heart Failure (CHF) Medications and Allergies Home Medications Medication Instructions Recorded Confirmed Type Aspirin [Adult Low Dose Aspirin EC] 81 mg PO HS 08/11/17 01/13/20 History Colchicine [Colcrys] 0.6 mg PO DAILY 08/11/17 01/13/20 History Insulin Detemir (Levemir) [Levemir] 38 unit SQ HS 08/11/17 01/13/20 History Lidocaine 5% Oint [Xylocaine 5% 1 applic TOPICAL HS PRN 08/11/17 01/13/20 History Oint] Nitroglycerin Sl Tabs [Nitrostat] 0.4 mg SUBLINGUAL Q5M PRN 08/11/17 01/13/20 History Ticagrelor [Brilinta] 90 mg PO BID 08/11/17 01/13/20 History Ascorbic Acid [Vitamin C] 500 mg PO DAILY 12/27/19 01/13/20 History Atorvastatin Calcium [Lipitor] 80 mg PO HS 12/27/19 01/13/20 History DULoxetine HCL [Cymbalta] 60 mg PO DAILY 12/27/19 01/13/20 History Desloratadine [Clarinex] 5 mg PO DAILY 12/27/19 01/13/20 History Docusate [Colace] 100 mg PO BID 12/27/19 01/13/20 History Ezetimibe [Zetia] 10 mg PO DAILY 12/27/19 01/13/20 History Fluticasone Nasal Refugio [Flonase 2 spr EA NOSTRIL DAILY 12/27/19 01/13/20 History Nasal Refugio] HYDROcodone/APAP 5-325MG [Cook 1 tab PO Q4HR PRN 12/27/19 01/13/20 History 5-325] Insulin Lispro [humaLOG Kwikpen] See Protocol SQ AC-TID 12/27/19 01/13/20 History Isosorbide Mononitrate ER [Imdur] 30 mg PO DAILY 12/27/19 01/13/20 History Levothyroxine Sodium [Synthroid] 112 mcg PO DAILY 12/27/19 01/13/20 History Lisinopril [Zestril] 10 mg PO DAILY 12/27/19 01/13/20 History Magnesium Oxide [Mag-Ox] 400 mg PO BID 12/27/19 01/13/20 History Mirtazapine [Remeron] 15 mg PO HS 12/27/19 01/13/20 History Multivitamins, Thera [Multivitamin 1 tab PO DAILY 12/27/19 01/13/20 History (formulary)] Sennosides [Senna] 17.2 mg PO HS 12/27/19 01/13/20 History hydrOXYzine HCL [Atarax] 10 mg PO DAILY 12/27/19 01/13/20 History methocarbamoL [Robaxin] 750 mg PO QID PRN 12/27/19 01/13/20 History modafiniL [Provigil] 200 mg PO DAILY 12/27/19 01/13/20 History rOPINIRole HCL [Requip] 4 mg PO TID 12/27/19 01/13/20 History sitaGLIPtin PHOS/metFORMIN HCL 1 tab PO BID 12/27/19 01/13/20 History [Janumet 50-1,000 mg Tablet] Metoprolol Tartrate [Lopressor] 25 mg PO BID #60 tab 01/01/20 01/13/20 Rx Furosemide [Lasix] 20 mg PO DAILY 01/13/20 01/13/20 History Allergies Allergy/AdvReac Type Severity Reaction Status Date / Time Penicillins Allergy Rash/Hives Verified 01/13/20 14:05 Physical Exam Vitals: Vital Signs Temp Pulse Pulse Pulse Resp BP BP 01/14/20 12:00 85 18 01/14/20 09:31 97.5 F L 78 20 01/14/20 05:00 98.2 F 82 18 140/80 01/14/20 00:00 98.2 F 73 72 18 01/13/20 20:00 97.8 F 72 18 01/13/20 16:15 97.7 F 72 76 71 16 98/55 106/61 BP Pulse Ox 01/14/20 12:00 136/76 98 01/14/20 09:31 133/61 99 01/14/20 05:00 99 01/14/20 00:00 117/88 98 01/13/20 20:00 128/95 97 01/13/20 16:15 95/53 99 Intake and Output 01/13/20 01/14/20 01/14/20 22:59 06:59 14:59 Intake Total 340 580 240 Balance 340 580 240 Intake: IV 100 Sodium Chloride 0.9% 1, 100 000 ml @ 100 mls/hr IV . Q10H ONE Rx#:[id number] Intake, IV Titration 100 Amount cefTRIAXone 1 gm In 100 Sodium Chloride 0.9% 50 ml @ 100 mls/hr IVPB Q24HR [facility] Rx#:[id number] Oral 240 480 240 Other: # Voids 1 1 Weight 89.358 kg 97.5 kg Results 01/14/20 07:14 01/14/20 07:14 Cardiac Enzymes 01/13/20 Range/Units 14:09 Troponin I 0.042 H* (0.000-0.034) ng/mL CBC 01/14/20 Range/Units 07:14 WBC 5.0 (3.8-10.6) k/uL RBC 3.70 L (3.80-5.40) m/uL Hgb 10.2 L (11.4-16.0) gm/dL Hct 32.1 L (34.0-46.0) % Plt Count 155 (150-450) k/uL Comprehensive Metabolic Panel 01/14/20 Range/Units 07:14 Sodium 137 (137-145) mmol/L Potassium 4.2 (3.5-5.1) mmol/L Chloride 107 (98-107) mmol/L Carbon Dioxide 24 (22-30) mmol/L BUN 15 (7-17) mg/dL Creatinine 0.67 (0.52-1.04) mg/dL Glucose 174 H (74-99) mg/dL Calcium 8.4 (8.4-10.2) mg/dL Current Medications Generic Name Dose Route Start Last Admin Trade Name Freq PRN Reason Stop Dose Admin Acetaminophen 650 mg 01/13/20 18:57 Acetaminophen Tab 325 Mg Tab PO Q6HR PRN Fever and/ or MILD Pain Hydrocodone Bitart/Acetaminophen 1 each 01/13/20 17:05 Hydrocodone/Apap 5-325mg 1 Each Tab PO Q4HR PRN Moderate to severe Pain Alprazolam 0.25 mg 01/13/20 19:07 Alprazolam 0.25 Mg Tab PO TID PRN Anxiety Ascorbic Acid 500 mg 01/14/20 09:00 01/14/20 09:26 Ascorbic Acid 500 Mg Tab PO 500 mg DAILY [facility] Administration Aspirin 81 mg 01/13/20 21:00 01/13/20 20:32 Aspirin 81 Mg PO 81 mg HS [facility] Administration Atorvastatin Calcium 80 mg 01/13/20 21:00 01/13/20 20:33 Atorvastatin 80 Mg Tab PO 80 mg HS [facility] Administration Colchicine 0.6 mg 01/14/20 09:00 01/14/20 09:27 Colchicine 0.6 Mg Each PO 0.6 mg DAILY [facility] Administration Docusate Sodium 100 mg 01/13/20 21:00 01/14/20 09:27 Docusate 100 Mg Cap PO Not Given BID [facility] Duloxetine HCl 60 mg 01/14/20 09:00 01/14/20 09:26 Duloxetine Hcl 60 Mg Capsule.Dr PO 60 mg DAILY [facility] Administration Ezetimibe 10 mg 01/14/20 09:00 01/14/20 09:27 Ezetimibe 10 Mg Tab PO 10 mg DAILY [facility] Administration Fluticasone Propionate 2 spray 01/14/20 09:00 01/14/20 09:26 Fluticasone 50mcg/Refugio Nasal 16gm EA NOSTRIL 2 spray DAILY [facility] Administration Furosemide 20 mg 01/14/20 09:00 01/14/20 09:27 Furosemide 20 Mg Tab PO 20 mg DAILY [facility] Administration Heparin Sodium (Porcine) 5,000 unit 01/13/20 21:00 01/14/20 09:26 Heparin Sodium,Porcine 5,000 Unit/Ml 1 Ml Vial SQ 5,000 unit Q12HR [facility] Administration Ceftriaxone Sodium 1 gm/ 50 mls @ 100 mls/hr 01/13/20 19:15 01/14/20 09:26 Sodium Chloride IVPB 100 mls/hr Q24HR [facility] Administration Insulin Aspart 0 unit 01/13/20 17:30 01/14/20 12:34 Insulin Aspart (Novolog) 100 Unit/Ml Vial SQ 100 unit ACHS [facility] Administration Protocol Insulin Detemir 38 unit 01/13/20 21:00 01/13/20 20:35 Insulin Detemir (Levemir) 100 Unit/Ml Syr SQ 38 unit HS [facility] Administration Levothyroxine Sodium 112 mcg 01/14/20 06:30 01/14/20 06:48 Levothyroxine 112 Mcg Tab PO 112 mcg 0630 [facility] Administration Lidocaine 1 applic 01/13/20 17:05 01/13/20 21:55 Lidocaine 5% Ointment 50 Gm Jar TOPICAL 1 applic HS PRN Administration Breakthrough Pain Linagliptin 5 mg 01/13/20 21:00 01/13/20 20:33 Linagliptin 5 Mg Tablet PO 5 mg HS [facility] Administration Lisinopril 5 mg 01/15/20 09:00 Lisinopril 5 Mg Tab PO DAILY [facility] Loratadine 10 mg 01/13/20 21:00 01/13/20 20:34 Loratadine 10 Mg Tab PO 10 mg HS [facility] Administration Magnesium Oxide 400 mg 01/13/20 21:00 01/14/20 09:26 Magnesium Oxide 400 Mg Tab PO 400 mg BID [facility] Administration Metformin HCl 1,000 mg 01/13/20 21:00 01/14/20 09:26 Metformin 500 Mg Tab PO 1,000 mg BID [facility] Administration Methocarbamol 750 mg 01/13/20 17:05 Methocarbamol 750 Mg Tab PO QID PRN Muscle Spasm Metoprolol Tartrate 12.5 mg 01/13/20 21:00 01/14/20 09:03 Metoprolol Tartrate 12.5 Mg Tab PO Not Given BID [facility] Mirtazapine 15 mg 01/13/20 21:00 01/13/20 20:33 Mirtazapine 15 Mg Tab PO 15 mg HS [facility] Administration Multivitamins 1 each 01/14/20 09:00 01/14/20 09:26 Multivitamins, Thera 1 Each Tab PO 1 each DAILY [facility] Administration Nitroglycerin 0.4 mg 01/13/20 17:03 Nitroglycerin Sl Tabs 0.4 Mg Tab SUBLINGUAL Q5M PRN Chest Pain Ondansetron HCl 4 mg 01/13/20 18:56 Ondansetron 4 Mg/2 Ml Vial IVP Q6HR PRN Nausea And Vomiting Pantoprazole Sodium 40 mg 01/14/20 07:30 01/14/20 06:48 Pantoprazole 40 Mg Tablet PO 40 mg AC-[id number] [facility] Administration Ropinirole HCl 4 mg 01/13/20 22:00 01/14/20 09:27 Ropinirole Hcl 4 Mg Tablet PO 4 mg TID [facility] Administration Senna 17.2 mg 01/13/20 21:00 01/13/20 20:34 Sennosides 8.6 Mg Tab PO Not Given HS [facility] Ticagrelor 90 mg 01/13/20 21:00 01/14/20 09:27 Ticagrelor 90 Mg Tab PO 90 mg BID [facility] Administration Intake and Output 01/13/20 01/14/20 01/14/20 22:59 06:59 14:59 Intake Total 340 580 240 Balance 340 580 240 Intake: IV 100 Sodium Chloride 0.9% 1, 100 000 ml @ 100 mls/hr IV . Q10H ONE Rx#:[id number] Intake, IV Titration 100 Amount cefTRIAXone 1 gm In 100 Sodium Chloride 0.9% 50 ml @ 100 mls/hr IVPB Q24HR [facility] Rx#:[id number] Oral 240 480 240 Other: # Voids 1 1 Weight 89.358 kg 97.5 kg 01/14/20 07:14 01/14/20 07:14
--- NOTE | 2020-01-14 15:22 | XR ---
EXAMINATION TYPE: XR chest 1V portable DATE OF EXAM: 01/14/2020 COMPARISON: 12/27/2019 HISTORY: Chest pain TECHNIQUE: FINDINGS: Heart is normal. Lungs are clear of infiltrate. There are chest leads. There is no pleural effusion. Bony thorax is intact. There is slight blunting of the costophrenic angles. IMPRESSION: There is some mild pleural reaction at the lung bases that is increased compared to old e xam. No heart failure seen.
--- NOTE | 2020-01-14 15:50 | PN ---
PROGRESS NOTE DATE OF SERVICE: 01/14/2020 This 69-year-old woman was admitted with hypotension, cardiac shock, possibly secondary to medication. Adjust medications. The patient also had a UTI, also the patient on antibiotics. The blood pressure is improved and as well as the heart rate. The patient also has a troponin elevated up to 0.042. Cardiology evaluation in progress. The patient recently had a cardiac event. PAST MEDICAL HISTORY: Reviewed. REVIEW OF SYSTEMS: CARDIOVASCULAR: No angina or palpitations. Otherwise as mentioned earlier. RESPIRATORY: As mentioned earlier. GI: As mentioned earlier. NERVOUS SYSTEM: No numbness or weakness. CURRENT MEDICATIONS: Reviewed and include Tylenol p.r.n., Bromide 5 mg, Xanax, vitamin C, aspirin, Lipitor, Rocephin 1 g, Colcrys, Colace, Cymbalta, Zetia, Lasix, heparin, NovoLog, Levemir, Synthroid, Tradjenta, Zestril. Claritin, magnesium oxide, Robaxin, Lopressor, Remeron, Nitrostat, Brilinta. PHYSICAL EXAM: GENERAL: Patient is alert and oriented times three. VITAL SIGNS: Pulse 85, blood pressure 130/76, respirations 18, temperature 97.4, pulse ox 99% on room air HEENT: Conjunctivae normal. Oral mucosa moist. NECK: No jugular venous distention. No carotid bruits. No lymph node enlargement. RESPIRATORY: Breath sounds diminished at the bases. A few scattered rhonchi and crackles. HEART: S1 and S2, muffled. ABDOMEN: Soft, no tenderness. No masses palpable. EXTREMITIES: No edema, no swelling. NERVOUS: Higher functions as mentioned earlier. Moves all four limbs. No focal motor or sensory deficits. LYMPHATICS: No lymph node palpable in the neck or axilla. SKIN: No ulcer, rash, bleeding. JOINTS: No active deforming arthropathy. LABS: WBC 5, hemoglobin 10.2, glucose 247. Troponin 0.042. ASSESSMENT: 1. Hypotension and cardiogenic shock and dizziness possibly secondary to medication induced. 2. Acute urinary tract infection present on admission. 3. Junctional rhythm and right bundle branch block present on admission, possibly secondary to medications. 4. Diabetes mellitus type 2. 5. Sleep apnea on CPAP. 6. History of hydrocephalus. 7. History of recent acute dwv-HF-sjpscek-elevation myocardial infarction and stenting of the right coronary artery. 8. History of back surgery. 9. History of knee surgery. 10.History of coronary artery disease with stent. 11.History of depression. 12.Congestive heart failure with chronic systolic dysfunction with ejection fraction 45% to 50%. 13.Full code. 14.Obesity with body mass index of 32.7. RECOMMENDATIONS AND DISCUSSION: In this 69-year-old woman who presented with multiple complex medical issues, will monitor the patient closely. Continue the current medications, symptomatic treatment. Continue with antibiotics. Otherwise, patient is on low-dose beta blockers and as well as small dose of lisinopril. Continue to monitor. Repeat labs. Increase ambulation. Orthostatic vitals. The prognosis is guarded because of multiple complex medical issues. Further recommendations to follow. MMMADDIEL / IJN: [id number] / MTDD
[2020-01-14 17:07] LABS: Glucose,Whole Blood 141 mg/dL (75-99)
[2020-01-14] MEDS: ASPIRIN 81 MG PO SCH (20:23)
[2020-01-14] MEDS: MIRTAZAPINE 15 MG TAB PO SCH (20:24)
[2020-01-14] MEDS: LORATADINE 10 MG TAB PO SCH (20:25)
[2020-01-14] MEDS: LIDOCAINE 5% OINTMENT 50 GM JAR TOPICAL PRN (20:25)
[2020-01-14] MEDS: LINAGLIPTIN 5 MG TABLET PO SCH (20:25)
[2020-01-14] MEDS: ATORVASTATIN 80 MG TAB PO SCH (20:25)
[2020-01-14] MEDS: SENNOSIDES 8.6 MG TAB PO SCH (20:30)
[2020-01-14 20:43] LABS: Glucose,Whole Blood 205 mg/dL (75-99)
[2020-01-14] MEDS: INSULIN DETEMIR (LEVEMIR) 100 UNIT/ML SYR SQ SCH (21:11)
[2020-01-15 06:35] LABS: Glucose,Whole Blood 104 mg/dL (75-99)
[2020-01-15] MEDS: INSULIN ASPART (NovoLOG) 100 UNIT/ML VIAL SQ SCH ×2 (06:38→12:26)
[2020-01-15] MEDS: LEVOTHYROXINE 112 MCG TAB PO SCH (06:49)
[2020-01-15] MEDS: PANTOPRAZOLE 40 MG TABLET PO SCH (06:49)
[2020-01-15 07:16] LABS: Anisocytosis Slight; Basophils % (A) 0 %; Eosinophils % (A) 0 %; HGB 10.9 gm/dL (11.4-16.0); Hypochromasia Slight; Lymphocytes # (A) 1.2 k/uL (1.0-4.8); Lymphocytes % (A) 26 %; MCH 27.5 pg (25.0-35.0); MCHC 32.1 g/dL (31.0-37.0); MCV 85.7 fL (80.0-100.0); Mean Platelet Volume 8.5; Monocytes # (A) 0.2 k/uL (0-1.0); Monocytes % (A) 5 %; Neutrophils % (A) 66 %; Platelet Count 174 k/uL (150-450); RBC 3.97 m/uL (3.80-5.40); RDW 16.8 % (11.5-15.5); WBC 4.6 k/uL (3.8-10.6)
[2020-01-15 07:25] LABS: Calcium 8.8 mg/dL (8.4-10.2); Potassium 4.2 mmol/L (3.5-5.1)
[2020-01-15] MEDS ORDERED: FUROSEMIDE 40 MG TAB PO SCH (09:00)
[2020-01-15] MEDS ORDERED: lisinopriL 5 MG TAB PO SCH (09:00)
[2020-01-15] MEDS: HEPARIN SODIUM,PORCINE 5,000 UNIT/ML 1 ML VIAL SQ SCH (09:05)
[2020-01-15] MEDS: metFORMIN 500 MG TAB PO SCH (09:06)
[2020-01-15] MEDS: ASCORBIC ACID 500 MG TAB PO SCH (09:06)
[2020-01-15] MEDS: METOPROLOL TARTRATE 12.5 MG TAB PO SCH (09:06)
[2020-01-15] MEDS: TICAGRELOR 90 MG TAB PO SCH (09:06)
[2020-01-15] MEDS: EZETIMIBE 10 MG TAB PO SCH (09:06)
[2020-01-15] MEDS: COLCHICINE 0.6 MG EACH PO SCH (09:06)
[2020-01-15] MEDS: DULoxetine HCL 60 MG CAPSULE.DR PO SCH (09:06)
[2020-01-15] MEDS: rOPINIRole HCL 4 MG TABLET PO SCH (09:06)
[2020-01-15] MEDS: MAGNESIUM OXIDE 400 MG TAB PO SCH (09:06)
[2020-01-15] MEDS: MULTIVITAMINS, THERA 1 EACH TAB PO SCH (09:06)
[2020-01-15] MEDS: FLUTICASONE 50MCG/SPRAY NASAL 16GM EA NOSTRIL SCH (09:23)
[2020-01-15] MEDS: DOCUSATE 100 MG CAP PO SCH (09:23)
[2020-01-15 10:56] VITALS: BP 103/62; PULSE 81; RESP 18; TEMP 97.5
[2020-01-15 12:25] LABS: Glucose,Whole Blood 122 mg/dL (75-99)
--- NOTE | 2020-01-15 13:56 | P.PN ---
Subjective HISTORY OF PRESENTING ILLNESS This is a pleasant 69-year-old female past medical history significant for coronary artery disease status post recent PCI to the mid RCA where she had some in-stent restenosis from a previous stent placement, ischemic cardiomyopathy with ejection fraction of 45%, hypertension, dyslipidemia, diabetes mellitus and recent non-ST elevated myocardial infarction 12/27/2019 and junctional tachycardia. She follows in the office with Dr. Ruiz. She seen and examined resting comfortably lying flat in bed in no acute distress. She states the edema in her legs has gone down and overall she is feeling much bett er since admission. Blood pressure supine is 103/62 and standing is 142/70, heart rate 81 afebrile maintaining oxygen saturation on room air Laboratory data reviewed, WBC 4.6, hemoglobin 10.9, platelets 174, sodium 137, potassium 4.2, creatinine 0.78. Currently maintained on aspirin 81 mg daily, atorvastatin 80 mg daily, Zetia 10 mg daily, Lasix 40 mg daily, metoprolol 12.5 mg BID and brilinta 90 mg BID. Chest xray negative for an acute process with no evidence of overt heart failure noted. PHYSICAL EXAMINATION CONSTITUTIONAL: No apparent distress. HEENT: Head is normocephalic. Pupils are equal, round. Sclerae anicteric. Mucous membranes of the mouth are moist. No JVD. No carotid bruit. CHEST EXAMINATION: Lungs are clear to auscultation. No chest wall tenderness is noted on palpation or with deep breathing. HEART EXAMINATION: Regular rate and rhythm. S1, S2 heard. No murmurs, gallops or rub. EXTREMITIES: 2+ peripheral pulses, trace bilateral lower extremity pitting edema and no calf tenderness. ASSESSMENT Near syncope secondary to hypotension Hypotension Recent non-ST elevated myocardial infarction status post PCI to the RCA maintained on dual antiplatelet therapy Diabetes mellitus Dyslipidemia Hypertension History of junctional rhythm PLAN Stable on current medical regimen. Follow up in the office with Dr. Ruiz in 1-2 weeks. Nurse Practitioner note has been reviewed, I agree with a documented findings and plan of care. Patient was seen and examined. Objective - Vital Signs Vital signs: Vital Signs Temp 97.5 F L 01/15/20 10:55 Pulse 81 01/15/20 10:55 Resp 18 01/15/20 10:55 BP 103/62 01/15/20 10:56 Pulse Ox 98 01/15/20 10:55 Intake & Output 01/14/20 01/15/20 01/15/20 18:59 06:59 18:59 Intake Total 1120 240 Balance 1120 240 Weight 91.7 kg Intake: Oral 1120 240 Other: # Voids 2 1 # Bowel Movements 2 - Labs CBC & Chem 7: 01/15/20 06:29 01/15/20 06:29 Labs: Abnormal Lab Results - Last 24 Hours (Table) 01/14/20 01/14/20 01/15/20 Range/Units 17:06 20:18 06:27 Hgb (11.4-16.0) gm/dL RDW (11.5-15.5) % POC Glucose (mg/dL) 141 H 205 H 104 H (75-99) mg/dL 01/15/20 01/15/20 Range/Units 06:29 12:12 Hgb 10.9 L (11.4-16.0) gm/dL RDW 16.8 H (11.5-15.5) % POC Glucose (mg/dL) 122 H (75-99) mg/dL Microbiology - Last 24 Hours (Table) 01/13/20 14:09 Urine Culture - Final Urine,Voided
--- NOTE | 2020-01-16 05:05 | DS ---
DISCHARGE SUMMARY DATE OF SERVICE: 01/15/2020 FINAL DIAGNOSES: 1. Hypotension with cardiogenic shock and dizziness possibly secondary to medication induced. 2. Acute urinary tract infection, present on admission. 3. Junctional rhythm and right bundle branch block, present on admission, possibly secondary to medications. 4. Diabetes mellitus type 2. 5. Sleep apnea on CPAP. 6. History of hydrocephalus. 7. History of recent acute wec-GE-oqhyaan-elevation myocardial infarction and stenting of the RCA. 8. History of back surgery. 9. History of knee surgery. 10.History of coronary artery disease, stent. 11.History of depression. 12.Congestive heart failure with chronic systolic dysfunction ejection fraction 45% to 50%. 13.Obesity with body mass index of 32.7. 14.FULL CODE. DISCHARGE DISPOSITION: The patient will be discharged in stable condition with guarded prognosis. Total time taken 35 minutes. HISTORY OF PRESENT ILLNESS: This 69-year-old woman with a past medical history of multiple medical problems admitted with hypotension, multiple cardiac arrhythmia as mentioned earlier, medication induced cardiac arrhythmia causing secondary cardiogenic shock and hypotension was considered. Cardiology saw the patient and the patient has got minimally elevated troponin which was thought to be the trailing edge of the recent acute zsd-LY-dqhjuia-elevation myocardial infarction. Otherwise, medications adjusted. The patient improved significantly. On exam, vitals are stable. CARDIOVASCULAR: S1, S2 muffled. ABDOMEN: Soft. NERVOUS SYSTEM: No focal deficits. Cardiology saw the patient, cleared the patient for discharge. Total time 35 minutes. DISCHARGE ADVICE: 1. Diet is cardiac. 2. Activity limited until followup. 3. Follow up with Dr. Medhat Asif in one to two days. 4. Follow up with Dr. Ruiz as recommended. Medications are: 1. Ecotrin 81 mg at bedtime. 2. Atarax 10 mg daily. 3. Brilinta 90 mg p.o. b.i.d. 4. Clarinex 5 mg p.o. daily. 5. Colace 100 mg p.o. b.i.d. 6. Colcrys 0.6 daily. 7. Cymbalta 60 mg daily. 8. Flonase that is two sprays as before. 9. Insulin as before. 10.Janumet one tablet p.o. b.i.d. 11.Levemir 38 units subcu at bedtime. 12.Lipitor 80 mg at bedtime. 13.Magnesium oxide 400 mg p.o. b.i.d. 14.Multivitamins one p.o. daily. 15.Nitrostat 0.4 sublingual p.r.n. 16.[place]ellen 5 mg q.4 p.r.n. 17.Provigil 200 mg p.o. daily. 18.Remeron 15 mg p.o. at bedtime. 19.Requip 4 mg p.o. t.i.d. 20.Robaxin 750 mg p.o. q.i.d. 21.Senna 17.2 mg at bedtime. 22.Synthroid 112 mcg p.o. daily. 23.Vitamin C 500 mg p.o. daily. 24.Xylocaine 5% 1 application topically. 25.Zetia 10 mg p.o. daily. 26.Ceftin 500 mg p.o. b.i.d. for 3 days. 27.Lasix 40 mg p.o. daily, increased dose of Lasix. 28.Lopressor 12.5 mg b.i.d. 29.Zestril 5 mg p.o. daily. 30.Hold Imdur at this time. Once again, the patient will be discharged in stable condition with guarded prognosis. MMODL / IJN: [id number] /
== END 2020-01-15 14:25 | disposition home or self-care (01) ==
LOC: EC 13:19 → 3NCARDOBS 15:05 → 3SCARD 15:20
PROVIDERS: ADMIT Hospitalist; ATTEND Hospitalist
DX: I95.9 Hypotension, unspecified (principal); R57.0 Cardiogenic shock; N39.0 Urinary tract infection, site not specified; I45.10 Unspecified right bundle-branch block; R42 Dizziness and giddiness; I25.10 Atherosclerotic heart disease of native coronary artery without angina pectoris; I50.22 Chronic systolic (congestive) heart failure; I11.0 Hypertensive heart disease with heart failure; E11.9 Type 2 diabetes mellitus without complications; E78.5 Hyperlipidemia, unspecified; G47.30 Sleep apnea, unspecified; I25.2 Old myocardial infarction; I25.5 Ischemic cardiomyopathy; E66.9 Obesity, unspecified; Z68.32 Body mass index [BMI] 32.0-32.9, adult; Z79.02 Long term (current) use of antithrombotics/antiplatelets; Z79.4 Long term (current) use of insulin; Z79.82 Long term (current) use of aspirin; Z79.890 Hormone replacement therapy; Z79.899 Other long term (current) drug therapy; Z82.49 Family history of ischemic heart disease and other diseases of the circulatory system; Z95.5 Presence of coronary angioplasty implant and graft
CPT/HCPCS: 96376; 96361 ×3; 96365; 96366; 96372 ×3; 93005 ×2; 99285; 36415; 80053; 80048 ×2; 84484; 85025 ×3; 81001; 87324; 87086; 71045; G0378 ×3; J1644 ×3; J0696 ×3

== ENCOUNTER 2020-02-07 13:28 | Inpatient (IN) | payer MEDICARE, OTHER ==
[2020-02-07] MEDS: SODIUM CHLORIDE 0.9% 500 ML 500 ML IV STA ×2 (14:19→20:50)
[2020-02-07 14:58] LABS: Anisocytosis Slight; Basophils % (A) 1 %; Eosinophils % (A) 0 %; HCT 37.8 % (34.0-46.0); HGB 12.4 gm/dL (11.4-16.0); Lymphocytes % (A) 14 %; MCH 27.6 pg (25.0-35.0); MCHC 32.9 g/dL (31.0-37.0); Monocytes # (A) 0.4 k/uL (0-1.0); Monocytes % (A) 5 %; Neutrophils # (A) 5.6 k/uL (1.3-7.7); Neutrophils % (A) 79 %; Platelet Count 172 k/uL (150-450); RDW 16.5 % (11.5-15.5); WBC 7.2 k/uL (3.8-10.6)
[2020-02-07 15:04] LABS: Albumin 3.5 g/dL (3.5-5.0); Calcium 9.3 mg/dL (8.4-10.2); Magnesium 1.5 mg/dL (1.6-2.3); Potassium 5.5 mmol/L (3.5-5.1); Total Bilirubin 0.7 mg/dL (0.2-1.3); Total Protein 5.8 g/dL (6.3-8.2)
--- NOTE | 2020-02-07 15:10 | XR ---
EXAMINATION TYPE: XR chest 2V DATE OF EXAM: 02/07/2020 COMPARISON: 01/14/2020 TECHNIQUE: PA and lateral views submitted. HISTORY: Syncope FINDINGS: The lungs are clear and there is no pneumothorax, pleural effusion, or focal pneumonia. Degenerative change of the spine. Heart is mildly prominent. Arthropathy of the shoulders. Interstitium stable. S uggestion of coronary artery stenting. IMPRESSION: 1. No definite acute process..
[2020-02-07 15:13] LABS: Partial Thromboplastin Time 22.1 sec (22.0-30.0); Prothrombin Time 10.6 sec (9.0-12.0)
[2020-02-07] MEDS ORDERED: SODIUM CHLORIDE 0.9% 500 ML 500 ML IV ONE (15:16)
[2020-02-07] MEDS ORDERED: INSULIN REGULAR 100 UNIT/ML VIAL IV ONE (15:19)
[2020-02-07] MEDS ORDERED: MAGNESIUM SULFATE-D5W PMX 1 GM in DEXTROSE/WATER 1 100ML.BAG IVPB ONE (15:19)
--- NOTE | 2020-02-07 15:23 | ED ---
General Adult HPI - General Chief complaint: Syncope Stated complaint: syncope,hypoglycemia Time Seen by Provider: 02/07/20 14:09 Source: patient, EMS, RN notes reviewed, old records reviewed Mode of arrival: EMS Limitations: no limitations - History of Present Illness Initial comments: 69 -year-old female presents with syncopal episode. According to family patient had been unconscious momentarily. She denied associated palpitations, no chest pain. She had recent hospital admission with abnormal heart rhythm, OR, dehydration. She deniespreceding vomiting but did have one episode of vomiting with her symptoms just prior to presentation. No fever. No URI symptoms. No dyspnea. - Related Data Home Medications Medication Instructions Recorded Confirmed Aspirin [Adult Low Dose Aspirin EC] 81 mg PO HS 08/11/17 01/13/20 Colchicine [Colcrys] 0.6 mg PO DAILY 08/11/17 01/13/20 Insulin Detemir (Levemir) [Levemir] 38 unit SQ HS 08/11/17 01/13/20 Lidocaine 5% Oint [Xylocaine 5% 1 applic TOPICAL HS PRN 08/11/17 01/13/20 Oint] Nitroglycerin Sl Tabs [Nitrostat] 0.4 mg SUBLINGUAL Q5M PRN 08/11/17 01/13/20 Ticagrelor [Brilinta] 90 mg PO BID 08/11/17 01/13/20 Ascorbic Acid [Vitamin C] 500 mg PO DAILY 12/27/19 01/13/20 Atorvastatin Calcium [Lipitor] 80 mg PO HS 12/27/19 01/13/20 DULoxetine HCL [Cymbalta] 60 mg PO DAILY 12/27/19 01/13/20 Desloratadine [Clarinex] 5 mg PO DAILY 12/27/19 01/13/20 Docusate [Colace] 100 mg PO BID 12/27/19 01/13/20 Ezetimibe [Zetia] 10 mg PO DAILY 12/27/19 01/13/20 Fluticasone Nasal [place] [Flonase 2 spr EA NOSTRIL DAILY 12/27/19 01/13/20 Nasal [place]] HYDROcodone/APAP 5-325MG [[place] 1 tab PO Q4HR PRN 12/27/19 01/13/20 5-325] Insulin Lispro [humaLOG Kwikpen] See Protocol SQ AC-TID 12/27/19 01/13/20 Levothyroxine Sodium [Synthroid] 112 mcg PO DAILY 12/27/19 01/13/20 Magnesium Oxide [Mag-Ox] 400 mg PO BID 12/27/19 01/13/20 Mirtazapine [Remeron] 15 mg PO HS 12/27/19 01/13/20 Multivitamins, Thera [Multivitamin 1 tab PO DAILY 12/27/19 01/13/20 (formulary)] Sennosides [Senna] 17.2 mg PO HS 12/27/19 01/13/20 hydrOXYzine HCL [Atarax] 10 mg PO DAILY 12/27/19 01/13/20 methocarbamoL [Robaxin] 750 mg PO QID PRN 12/27/19 01/13/20 modafiniL [Provigil] 200 mg PO DAILY 12/27/19 01/13/20 rOPINIRole HCL [Requip] 4 mg PO TID 12/27/19 01/13/20 sitaGLIPtin PHOS/metFORMIN HCL 1 tab PO BID 12/27/19 01/13/20 [Janumet 50-1,000 mg Tablet] Previous Rx's Medication Instructions Recorded Cefuroxime Axetil [Ceftin] 500 mg PO BID 3 Days #6 tab 01/15/20 Furosemide [Lasix] 40 mg PO DAILY #30 tablet 01/15/20 Metoprolol Tartrate [Lopressor] 12.5 mg PO BID #60 tab 01/15/20 lisinopriL [Zestril] 5 mg PO DAILY #30 tab 01/15/20 Allergies Allergy/AdvReac Type Severity Reaction Status Date / Time Penicillins Allergy Rash/Hives Verified 01/13/20 14:05 Review of Systems ROS Statement: Those systems with pertinent positive or pertinent negative responses have been documented in the HPI. ROS Other: All systems not noted in ROS Statement are negative. Past Medical History Past Medical History: Chest Pain / Angina, Diabetes Mellitus, Myocardial Infarction (OR), Sleep Apnea/CPAP/BIPAP Additional Past Medical History / Comment(s): hydrocephalus, back surgery "a couple of months ago." knee surgery, stent november 2019 History of Any Multi-Drug Resistant Organisms: None Reported Past Surgical History: Back Surgery, Heart Catheterization With Stent, Orthopedic Surgery, Tubal Ligation Additional Past Surgical History / Comment(s): CARDIAC CATH with 3 stents placed Past Anesthesia/Blood Transfusion Reactions: No Reported Reaction, Postoperative Nausea & Vomiting (PONV) Date of Last Stent Placement:: 12/27/19 Past Psychological History: Depression Smoking Status: Never smoker Past Alcohol Use History: Occasional Past Drug Use History: None Reported - Past Family History Father History Unknown: Yes Family Medical History: Congestive Heart Failure (CHF) Mother History Unknown: Yes Family Medical History: Congestive Heart Failure (CHF) General Exam Limitations: no limitations General appearance: alert, in no apparent distress Head exam: Present: atraumatic, normocephalic Eye exam: Present: normal appearance, PERRL ENT exam: Present: mucous membranes dry Neck exam: Present: normal inspection. Absent: tenderness, meningismus Respiratory exam: Present: normal lung sounds bilaterally. Absent: respiratory distress, wheezes Cardiovascular Exam: Present: regular rate, normal rhythm GI/Abdominal exam: Present: soft. Absent: distended, tenderness, guarding Extremities exam: Present: normal inspection, normal capillary refill. Absent: pedal edema Back exam: Present: normal inspection Neurological exam: Present: alert, oriented X3, CN II-XII intact. Absent: motor sensory deficit Psychiatric exam: Present: normal affect, normal mood Skin exam: Present: warm, dry, intact. Absent: cyanosis, diaphoretic Course Vital Signs 02/07/20 13:34 Temperature 97 F L Pulse Rate 70 Respiratory 17 Rate Blood Pressure 102/59 O2 Sat by Pulse 97 Oximetry EKG Findings - EKG Comments: EKG Findings:: EKG: Normal sinus rhythm, LVH no ST segment elevation, T-wave inversion in lead 3 with Q waves. There is a ventricular rate is 70, ID interval 168, QRS duration 82, QTC 451 Medical Decision Making - Medical Decision Making 69-year-old female with syncope, hypotension. EMS report a blood pressure of 58 systolic. Patient appears extremely dehydrated on initial evaluation, blood pressure is stable and improved with IV fluids. Workup reveals normal CBC, CMP shows acute kidney injury with a creatinine of 1.2, hypomagnesemia, and a significantly elevated blood glucose at 609. There is no signs of DKA, normal CO2 Chest x-rays negative for focal pneumonia or acute findings. Case has been discussed with Dr. Esparza who will admit. - Lab Data Result diagrams: 02/07/20 14:19 02/07/20 14:19 Lab Results 02/07/20 02/07/20 02/07/20 Range/Units 14:19 14:19 14:19 WBC 7.2 (3.8-10.6) k/uL RBC 4.50 (3.80-5.40) m/uL Hgb 12.4 (11.4-16.0) gm/dL Hct 37.8 (34.0-46.0) % MCV 84.0 (80.0-100.0) fL MCH 27.6 (25.0-35.0) pg MCHC 32.9 (31.0-37.0) g/dL RDW 16.5 H (11.5-15.5) % Plt Count 172 (150-450) k/uL MPV 9.0 Neutrophils % 79 % Lymphocytes % 14 % Monocytes % 5 % Eosinophils % 0 % Basophils % 1 % Neutrophils # 5.6 (1.3-7.7) k/uL Lymphocytes # 1.0 (1.0-4.8) k/uL Monocytes # 0.4 (0-1.0) k/uL Eosinophils # 0.0 (0-0.7) k/uL Basophils # 0.0 (0-0.2) k/uL Anisocytosis Slight PT 10.6 (9.0-12.0) sec INR 1.0 (<1.2) APTT 22.1 (22.0-30.0) sec Sodium 132 L (137-145) mmol/L Potassium 5.5 H (3.5-5.1) mmol/L Chloride 98 (98-107) mmol/L Carbon Dioxide 27 (22-30) mmol/L Anion Gap 7 mmol/L BUN 28 H (7-17) mg/dL Creatinine 1.18 H (0.52-1.04) mg/dL Est GFR (CKD-EPI)AfAm 54 (>60 ml/min/1.73 sqM) Est GFR (CKD-EPI)NonAf 47 (>60 ml/min/1.73 sqM) Glucose 609 H* (74-99) mg/dL Plasma Lactic Acid Quang (0.7-2.0) mmol/L Calcium 9.3 (8.4-10.2) mg/dL Magnesium 1.5 L (1.6-2.3) mg/dL Total Bilirubin 0.7 (0.2-1.3) mg/dL AST 23 (14-36) U/L ALT 20 (4-34) U/L Alkaline Phosphatase 109 (38-126) U/L Troponin I (0.000-0.034) ng/mL Total Protein 5.8 L (6.3-8.2) g/dL Albumin 3.5 (3.5-5.0) g/dL 02/07/20 02/07/20 Range/Units 14:19 14:19 WBC (3.8-10.6) k/uL RBC (3.80-5.40) m/uL Hgb (11.4-16.0) gm/dL Hct (34.0-46.0) % MCV (80.0-100.0) fL MCH (25.0-35.0) pg MCHC (31.0-37.0) g/dL RDW (11.5-15.5) % Plt Count (150-450) k/uL MPV Neutrophils % % Lymphocytes % % Monocytes % % Eosinophils % % Basophils % % Neutrophils # (1.3-7.7) k/uL Lymphocytes # (1.0-4.8) k/uL Monocytes # (0-1.0) k/uL Eosinophils # (0-0.7) k/uL Basophils # (0-0.2) k/uL Anisocytosis PT (9.0-12.0) sec INR (<1.2) APTT (22.0-30.0) sec Sodium (137-145) mmol/L Potassium (3.5-5.1) mmol/L Chloride (98-107) mmol/L Carbon Dioxide (22-30) mmol/L Anion Gap mmol/L BUN (7-17) mg/dL Creatinine (0.52-1.04) mg/dL Est GFR (CKD-EPI)AfAm (>60 ml/min/1.73 sqM) Est GFR (CKD-EPI)NonAf (>60 ml/min/1.73 sqM) Glucose (74-99) mg/dL Plasma Lactic Acid Quang 1.7 (0.7-2.0) mmol/L Calcium (8.4-10.2) mg/dL Magnesium (1.6-2.3) mg/dL Total Bilirubin (0.2-1.3) mg/dL AST (14-36) U/L ALT (4-34) U/L Alkaline Phosphatase (38-126) U/L Troponin I <0.012 (0.000-0.034) ng/mL Total Protein (6.3-8.2) g/dL Albumin (3.5-5.0) g/dL Critical Care Time Critical Care Time: Yes Total Critical Care Time: 35 Disposition Clinical Impression: Hypotension, Dehydration, Hyperglycemia, Acute kidney injury Disposition: ADMITTED IP TO THIS [facility] Condition: Stable Is patient prescribed a controlled substance at d/c from ED?: No Referrals: Medhat Asif DO [Primary Care Provider] - 1-2 days Decision to Admit Reason: Admit from EC Decision Date: 02/07/20 Decision Time: 15:51
[2020-02-07] MEDS: SODIUM CHLORIDE 0.9% 1,000 ML IV SCH ×2 (15:39→20:47)
[2020-02-07] MEDS ORDERED: NALOXONE 0.4 MG/ML 1 ML VIAL IV PRN (15:48)
[2020-02-07] MEDS: rOPINIRole HCL 4 MG TABLET PO SCH (17:49)
[2020-02-07 18:04] LABS: Appearance,Urine Clear (Clear); Bacteria,Urine Rare /hpf; Bilirubin,Urine Negative (Negative); Blood,Urine Negative (Negative); Color,Urine Yellow; Glucose,Urine (UA) 4+ (Negative); Hyaline Casts,Urine 3 /lpf (0-2); Ketones,Urine Negative (Negative); Leukocyte Esterase,Urine Large (Negative); Mucus,Urine Occasional /hpf; Nitrite,Urine Negative (Negative); PH, Urine 5.5 (5.0-8.0); Protein,Urine Negative (Negative); RBC,Urine 4 /hpf (0-5); Squamous Epithelial Cell,Urine 3 /hpf (0-4); Urobilinogen,Urine <2.0 mg/dL (<2.0); WBC,Urine 10 /hpf (0-5)
[2020-02-07] MEDS ORDERED: LIDOCAINE 5% OINTMENT 50 GM JAR TOPICAL PRN (19:11)
[2020-02-07] MEDS ORDERED: methocarbamoL 750 MG TAB PO PRN (19:11)
[2020-02-07] MEDS ORDERED: NITROGLYCERIN SL TABS 0.4 MG TAB SUBLINGUAL PRN (19:11)
[2020-02-07] MEDS ORDERED: HYDROcodone/APAP 5-325MG 1 EACH TAB PO PRN (19:11)
[2020-02-07] MEDS ORDERED: ALPRAZolam 0.25 MG TAB PO PRN (19:16)
[2020-02-07] MEDS ORDERED: HYDROmorphone 0.5 MG/0.5 ML SYRINGE IVP PRN (19:16)
[2020-02-07 19:19] LABS: Glucose,Whole Blood 516 mg/dL (75-99)
[2020-02-07] MEDS ORDERED: HEPARIN SODIUM,PORCINE 5,000 UNIT/ML 1 ML VIAL IV ONE (19:55)
[2020-02-07] MEDS ORDERED: HEPARIN SODIUM,PORCINE 5,000 UNIT/ML 1 ML VIAL IV PRN (19:55)
[2020-02-07] MEDS ORDERED: HEPARIN SOD,PORK IN 0.45% NACL 25,000 UNIT in 0.45% NACL 1 250ML.BAG IV SCH (20:00)
[2020-02-07] MEDS ORDERED: HEPARIN SODIUM,PORCINE 5,000 UNIT/ML 1 ML VIAL SQ SCH (21:00)
[2020-02-07] MEDS ORDERED: INSULIN REGULAR 100 UNIT in SODIUM CHLORIDE 0.9% 100 ML IV SCH (21:30)
[2020-02-07 22:01] LABS: Glucose,Whole Blood 473 mg/dL (75-99)
[2020-02-07] MEDS: TICAGRELOR 90 MG TAB PO SCH (22:13)
--- NOTE | 2020-02-07 22:46 | HP ---
HISTORY AND PHYSICAL DATE OF SERVICE: 02/07/2020 CHIEF COMPLAINTS: Syncope and weakness and hyperglycemia. HISTORY OF PRESENT ILLNESS: This 69-year-old woman with a past medical history of multiple medical problems, including diabetes mellitus, myocardial infarction, sleep apnea, history of hydrocephalus, back surgery, being followed by Dr. Asif in the outpatient setting, was complaining of some weakness. The patient had multiple episodes of syncope at home and the patient also had palpitations and generalized weakness. Patient had poor p.o. intake. Blood pressure was found to be 58/34 by the EMS. The patient apparently had recent blood pressure medication changes, also. There is no history of any fever, rigor or chills. No history of any contact with sick individuals. After coming to the hospital, patient was found to have hyperglycemia with glucose of 609,with no evidence of diabetic ketoacidosis. There is no history of any fever, rigors or chills at this time. PAST MEDICAL HISTORY: History of diabetes mellitus, type 2, history of myocardial infarction, sleep apnea, hydrocephalus, back surgery, CAD and stent. HOME MEDICATIONS: Lasix, Robaxin, Janumet, Requip, Lopressor, Zestril, Humalog, Levemir, Lipitor, aspirin, vitamin C, Cymbalta, Colcrys, Flonase, Zetia, Colace, Clarinex, magnesium oxide, Xylocaine, Synthroid, [place], Brilinta, Senna, Nitrostat, multivitamins, Remeron, Provigil, Atarax, Naprosyn. ALLERGIES: PENICILLIN. FAMILY HISTORY: History of CHF in the family. SOCIAL HISTORY: No history of smoking. No history of alcohol intake. REVIEW OF SYSTEMS: ENT: No diminished hearing. No diminished vision. CARDIOVASCULAR SYSTEM: As mentioned earlier. RESPIRATORY SYSTEM: As mentioned earlier. GI: As mentioned earlier. : No dysuria or retention. NERVOUS SYSTEM: No numbness, weakness. ALLERGY/IMMUNOLOGY: No asthma, hayfever. MUSCULOSKELETAL: As mentioned earlier. HEMATOLOGY/ONCOLOGY: No history of anemia. ENDOCRINE: Diabetes. CONSTITUTIONAL: As mentioned earlier. DERMATOLOGY: Negative. RHEUMATOLOGY: Negative. PSYCHIATRY: As mentioned earlier. PHYSICAL EXAMINATION: Patient alert and oriented x3. Pulse is 74, blood pressure 84/60, respirations 16, temperature normal, pulse ox is 100% on room air. HEENT: Conjunctivae pale. Oral mucosa dry. NECK: No jugular venous distention. No carotid bruit. No lymph node enlargement. CARDIOVASCULAR SYSTEM: S1, S2 muffled. No S3. No S4. RESPIRATORY SYSTEM: Breath sounds diminished at the bases. A few scattered rhonchi and crackles. ABDOMEN: Soft, non-tender. No mass palpable. LEGS: No edema. No swelling. NERVOUS SYSTEM: Higher functions as mentioned earlier. Moves all 4 limbs. No focal motor or sensory deficit. LYMPHATICS: No lymph node palpable in neck, axillae or groin. SKIN: No ulcer, rash, bleeding. JOINTS: No active deforming arthropathy. LABS: Labs at this time show CBC within normal limits. Sodium 132, potassium 5.5, creatinine 1.18, glucose 609, magnesium 1.5. ASSESSMENT: 1. Severe dehydration as well as acute renal failure with acute tubular necrosis, prerenal factors. 2. Syncope because of orthostatic hypotension. 3. Diabetes mellitus, type 2, uncontrolled, with hyperosmolar state. 4. Rule out cardiac ischemia. 5. Hypomagnesemia. 6. Hyponatremia. 7. Hyperkalemia. 8. Possible acute urinary tract infection. 9. History of diabetes mellitus, type 2. 10.History of myocardial infarction. 11.History of sleep apnea. 12.History of hydrocephalus. 13.History of back surgery. 14.History of knee surgery. 15.History of coronary artery disease, stent. 16.History of degenerative joint disease. 17.History of depression. 18.Previous [id number] elevation myocardial infarction and stenting of the RCA. 19.Chronic congestive heart failure with chronic systolic dysfunction, ejection fraction 45% to 50%. 20.FULL CODE. RECOMMENDATIONS AND DISCUSSION: In this 69-year-old woman admitted with multiple medical issues, at this time I recommend to continue the current medications. I will hold the Lasix and other blood pressure medications. 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 Will continue to monitor. Otherwise, repeat labs. Continue with IV fluids. Monitor blood sugars closely. If sugars are not coming down, I would recommend IV insulin drip. Otherwise, replace magnesium. Overall prognosis extremely guarded because of multiple complex medical issues. Further recommendations to follow. A copy of this dictation is being forwarded to Dr. Asif, who is the primary physician. MMODL / IJN: [id number] /
[2020-02-08] MEDS: rOPINIRole HCL 4 MG TABLET PO SCH ×4 (00:39→22:56)
[2020-02-08 01:12] LABS: Glucose,Whole Blood 105 mg/dL (75-99)
[2020-02-08] MEDS: MAGNESIUM OXIDE 400 MG TAB PO SCH ×3 (03:16→22:56)
[2020-02-08] MEDS: DOCUSATE 100 MG CAP PO SCH ×3 (03:16→22:55)
[2020-02-08] MEDS: MIRTAZAPINE 15 MG TAB PO SCH ×2 (03:16→22:56)
[2020-02-08] MEDS: ATORVASTATIN 80 MG TAB PO SCH ×2 (03:17→22:55)
[2020-02-08] MEDS: ASPIRIN 81 MG PO SCH ×2 (03:17→22:56)
[2020-02-08] MEDS: SENNOSIDES 8.6 MG TAB PO SCH ×2 (03:17→22:56)
[2020-02-08 03:31] LABS: Glucose,Whole Blood 150 mg/dL (75-99)
[2020-02-08 06:17] LABS: Glucose,Whole Blood 191 mg/dL (75-99)
[2020-02-08 07:56] LABS: Glucose,Whole Blood 198 mg/dL (75-99)
[2020-02-08] MEDS ORDERED: COLCHICINE 0.6 MG EACH PO SCH (09:00)
[2020-02-08 10:11] LABS: Glucose,Whole Blood 181 mg/dL (75-99)
--- NOTE | 2020-02-08 10:31 | P.CRDCN ---
History of Present Illness History of present illness: HISTORY OF PRESENTING ILLNESS This is a pleasant 69-year-old female past medical history significant for coronary artery disease status post recent PCI to the mid RCA with in-stent restenosis from previous stent placement in the setting of a non-ST elevated myocardial infarction, ischemic cardiomyopathy with ejection fraction 45%, hypertension, dyslipidemia, diabetes mellitus, obstructive sleep apnea and frequent episodes of near-syncope/syncope. She follows in the office with Dr. Ruiz. We have been asked to see in consultation for hypotension. She presented to the hospital after having multiple syncopal episodes while having breakfast with her . They had been sitting at the table waiting for their food when she started feeling weak and light headed. She states she has felt this way in the past when her blood pressure drops too low. She knew she was going to pass out. She states her told her she lost consciousness 4 times. EMS was called. On arrival her blood pressure was 58 systolic. She was transported here and blood pressures on arrival were 102/59, 95/60 and 83/61. Heart rates in the 60-70 range. She was given IV fluids and her blood pressure has remained stable. Lisinopril and lopressor are currently on hold. She is seen and examined sitting up in bed eating breakfast talking on the phone in no acute distress. She denies feeling dizzy or light headed. She has no chest pain, shortness of breath or palpitations. DIAGNOSTICS EKG reveals sinus mechanism heart rate of 70 with nonspecific flattened T waves noted inferiorly laterally. Telemetry tracings reviewed, multiple episodes of short runs of nonsustained ventricular tachycardia longest being 10 beats. Patient is asymptomatic at this time. Interrogation reveals she is having reversibility back with a R tip he rather 10 beats are morphology. Chest xray negative for an acute cardiopulmonary process. Laboratory reviewed, CBC unremarkable, sodium 132, potassium 5.5, creatinine 1.18, magnesium 1.5, cardiac enzymes negative x2 and COVID negative. Current cardiac medications include aspirin 81 mg daily, brilinta 90 mg BID, zetia 10 mg daily, atorvastatin 80 mg daily, lisinopril 5 mg daily, lopressor 12.5 mg BID and lasix 40 mg daily. Most recent echocardiogram obtained November 2019 revealed impaired LV systolic function with ejection fraction 45-50% with apical anterior, apical lateral, apical inferior and apical septal LV wall motion hypokinesia, mild MR, mild TR a nd borderline pulmonary hypertension with an RVSP of 33 mmHg. REVIEW OF SYSTEMS At the time of my exam: CONSTITUTIONAL: Denies fever or chills. CARDIOVASCULAR: Denies chest pain, shortness of breath, orthopnea, PND or palpitations. RESPIRATORY: Denies cough. GASTROINTESTINAL: Denies abdominal pain, diarrhea, constipation, nausea or vomiting. MUSCULOSKELETAL: Denies myalgias. NEUROLOGIC: Denies numbness, tingling or weakness. ENDOCRINE: Denies fatigue, weight change, polydipsia or polyurina. GENITOURINARY: Denies burning, hematuria or urgency with micturation. HEMATOLOGIC: Denies history of anemia or bleeding. PHYSICAL EXAMINATION Blood pressure 118/69 heart rate 77 afebrile and maintaining oxygen saturation on room air. CONSTITUTIONAL: No apparent distress. HEENT: Head is normocephalic. Pupils are equal, round. Sclerae anicteric. Mucous membranes of the mouth are moist. No JVD. No carotid bruit. CHEST EXAMINATION: Lungs are clear to auscultation. No chest wall tenderness is noted on palpation or with deep breathing. HEART EXAMINATION: Regular rate and rhythm. S1, S2 heard. No murmurs, gallops or rub. ABDOMEN: Soft, nontender. Positive bowel sounds. EXTREMITIES: 2+ peripheral pulses, no lower extremity edema and no calf tenderness. NEUROLOGIC EXAMINATION: Patient is awake, alert and oriented x3. ASSESSMENT Syncope secondary to hypotension Coronary artery disease Recent non-ST elevated myocardial infarction status post PCI maintained on dual antiplatelet therapy Ischemic cardiomyopathy Hypertension in the past Dyslipidemia Diabetes mellitus Obstructive sleep apnea PLAN Continue to hold lisinopril and metoprolol. Check for orthostatic changes. Continue gentle hydration. Discontinue heparin infusion. We may consider tilt table study. Further recommendations to follow based on clinical course. Thank you kindly for this consultation. Nurse Practitioner note has been reviewed, I agree with a documented findings and plan of care. Patient was seen and examined. Past Medical History Past Medical History: Coronary Artery Disease (CAD), Chest Pain / Angina, Heart Failure, Diabetes Mellitus, GERD/Reflux, Hyperlipidemia, Hypertension, Myocardial Infarction (RI), Sleep Apnea/CPAP/BIPAP, Thyroid Disorder Additional Past Medical History / Comment(s): Pt recently admitted to [facility] on 01/13/20 with hypotension/cardiogenic shock, dizziness, acute UTI, junctional rhythm. Other hx: Normal pressure hydrocephalus, IDDM type II, neuropathy bilatera feet/toes, KATI with Cpap use, chronic back pain, generalized arthritis, RLS, embedded kidney stones, bilateral macular degeneration, IBS, allergi es/hives, hypothyroid Last Myocardial Infarction Date:: 12/27/19 History of Any Multi-Drug Resistant Organisms: None Reported Past Surgical History: Back Surgery, Heart Catheterization With Stent, Orthopedic Surgery, Tubal Ligation Additional Past Surgical History / Comment(s): PCI with stents, low back surgery, brain shunt, colonoscopy Past Anesthesia/Blood Transfusion Reactions: No Reported Reaction, Postoperative Nausea & Vomiting (PONV) Date of Last Stent Placement:: 12/27/19 Smoking Status: Never smoker - Past Family History Father History Unknown: Yes Family Medical History: Congestive Heart Failure (CHF) Mother History Unknown: Yes Family Medical History: Congestive Heart Failure (CHF) Medications and Allergies Home Medications Medication Instructions Recorded Confirmed Type Aspirin [Adult Low Dose Aspirin EC] 81 mg PO HS 08/11/17 02/07/20 History Colchicine [Colcrys] 0.3 - 0.6 mg PO DAILY 08/11/17 02/07/20 History Insulin Detemir (Levemir) [Levemir] 38 unit SQ HS 08/11/17 02/07/20 History Lidocaine 5% Oint [Xylocaine 5% 1 applic TOPICAL HS PRN 08/11/17 02/07/20 History Oint] Nitroglycerin Sl Tabs [Nitrostat] 0.4 mg SUBLINGUAL Q5M PRN 08/11/17 02/07/20 History Ticagrelor [Brilinta] 90 mg PO BID 08/11/17 02/07/20 History Ascorbic Acid [Vitamin C] 500 mg PO DAILY 12/27/19 02/07/20 History Atorvastatin Calcium [Lipitor] 80 mg PO HS 12/27/19 02/07/20 History DULoxetine HCL [Cymbalta] 60 mg PO DAILY 12/27/19 02/07/20 History Desloratadine [Clarinex] 5 mg PO DAILY 12/27/19 02/07/20 History Docusate [Colace] 100 mg PO BID 12/27/19 02/07/20 History Ezetimibe [Zetia] 10 mg PO DAILY 12/27/19 02/07/20 History Fluticasone Nasal [place] [Flonase 2 spr EA NOSTRIL DAILY 12/27/19 02/07/20 Hi story Nasal [place]] HYDROcodone/APAP 5-325MG [[place] 1 tab PO Q4HR PRN 12/27/19 02/07/20 History 5-325] Insulin Lispro [humaLOG Kwikpen] See Protocol SQ AC-TID 12/27/19 02/07/20 History Levothyroxine Sodium [Synthroid] 112 mcg PO DAILY 12/27/19 02/07/20 History Magnesium Oxide [Mag-Ox] 400 mg PO BID 12/27/19 02/07/20 History Mirtazapine [Remeron] 15 mg PO HS 12/27/19 02/07/20 History Multivitamins, Thera [Multivitamin 1 tab PO DAILY 12/27/19 02/07/20 History (formulary)] Sennosides [Senna] 17.2 mg PO HS 12/27/19 02/07/20 History hydrOXYzine HCL [Atarax] 10 mg PO DAILY 12/27/19 02/07/20 History methocarbamoL [Robaxin] 750 mg PO QID PRN 12/27/19 02/07/20 History modafiniL [Provigil] 200 mg PO DAILY 12/27/19 02/07/20 History rOPINIRole HCL [Requip] 4 mg PO TID 12/27/19 02/07/20 History sitaGLIPtin PHOS/metFORMIN HCL 1 tab PO BID 12/27/19 02/07/20 History [Janumet 50-1,000 mg Tablet] Furosemide [Lasix] 20 - 40 mg PO DAILY PRN 02/07/20 02/07/20 History Lisinopril [Zestril] 5 mg PO DAILY 02/07/20 02/07/20 History Metoprolol Tartrate [Lopressor] 12.5 mg PO BID 02/07/20 02/07/20 History Naproxen 500 mg PO BID-W/MEALS 02/07/20 02/07/20 History Allergies Allergy/AdvReac Type Severity Reaction Status Date / Time Penicillins Allergy Rash/Hives Verified 02/07/20 17:32 Physical Exam Vitals: Vital Signs Temp Pulse Pulse Resp BP BP Pulse Ox 02/08/20 07:37 97.7 F 77 17 118/69 97 02/08/20 06:47 77 18 99/57 95 02/08/20 06:00 73 18 101/54 95 02/08/20 05:00 73 18 122/73 94 L 02/08/20 04:00 72 18 93/50 94 L 02/08/20 03:00 67 18 100/54 98 02/08/20 02:05 76 18 89/53 96 02/07/20 21:00 76 18 102/53 94 L 02/07/20 20:00 70 18 110/66 94 L 02/07/20 18:30 74 16 84/53 02/07/20 18:00 76 20 107/25 02/07/20 17:30 83/49 02/07/20 17:00 71 16 81/53 02/07/20 16:30 71 17 76/49 02/07/20 16:00 71 17 97/57 100 02/07/20 15:30 72 18 80/53 100 02/07/20 15:00 83/61 02/07/20 14:30 71 17 95/60 99 02/07/20 14:00 69 16 102/59 100 02/07/20 13:47 18 102/59 93 L 02/07/20 13:34 97 F L 70 17 102/59 97 Intake and Output 02/07/20 02/08/20 02/08/20 22:59 06:59 14:59 Intake Total 0.003 144.050 5.606 Balance 0.003 144.050 5.606 Intake: Intake, IV Titration 0.003 144.050 5.606 Amount Heparin Sod,Pork in 0.45% 61.667 NaCl 25,000 unit In 0.45 % NaCl 1 250ml.bag @ 11. 364 UNITS/KG/HR 10 mls/hr IV .Q24H [facility] Rx#: [id number] Insulin Regular 100 unit 0.003 82.383 5.606 In Sodium Chloride 0.9% 100 ml @ Titrate IV .Q0M [facility] Rx#:[id number] Other: Weight 87.997 kg Results 02/07/20 14:19 02/07/20 14:19 Cardiac Enzymes 02/07/20 02/07/20 02/07/20 Range/Units 14:19 14:19 20:38 AST 23 (14-36) U/L Troponin I <0.012 <0.012 (0.000-0.034) ng/mL Coagulation 02/07/20 02/08/20 Range/Units 14:19 02:06 PT 10.6 (9.0-12.0) sec APTT 22.1 42.2 H (22.0-30.0) sec CBC 02/07/20 Range/Units 14:19 WBC 7.2 (3.8-10.6) k/uL RBC 4.50 (3.80-5.40) m/uL Hgb 12.4 (11.4-16.0) gm/dL Hct 37.8 (34.0-46.0) % Plt Count 172 (150-450) k/uL Comprehensive Metabolic Panel 02/07/20 Range/Units 14:19 Sodium 132 L (137-145) mmol/L Potassium 5.5 H (3.5-5.1) mmol/L Chloride 98 (98-107) mmol/L Carbon Dioxide 27 (22-30) mmol/L BUN 28 H (7-17) mg/dL Creatinine 1.18 H (0.52-1.04) mg/dL Glucose 609 H* (74-99) mg/dL Calcium 9.3 (8.4-10.2) mg/dL AST 23 (14-36) U/L ALT 20 (4-34) U/L Alkaline Phosphatase 109 (38-126) U/L Total Protein 5.8 L (6.3-8.2) g/dL Albumin 3.5 (3.5-5.0) g/dL Current Medications Generic Name Dose Route Start Last Admin Trade Name Freq PRN Reason Stop Dose Admin Hydrocodone Bitart/Acetaminophen 1 each 02/07/20 19:11 Hydrocodone/Apap 5-325mg 1 Each Tab PO Q4HR PRN Pain Alprazolam 0.25 mg 02/07/20 19:16 Alprazolam 0.25 Mg Tab PO TID PRN Anxiety Ascorbic Acid 500 mg 02/08/20 09:00 Ascorbic Acid 500 Mg Tab PO DAILY [facility] Aspirin 81 mg 02/07/20 21:00 02/08/20 03:17 Aspirin 81 Mg PO Not Given HS [facility] Atorvastatin Calcium 80 mg 02/07/20 21:00 02/08/20 03:17 Atorvastatin 80 Mg Tab PO Not Given HS [facility] Colchicine 0.3 mg 02/08/20 09:00 Colchicine 0.6 Mg Each PO DAILY [facility] Docusate Sodium 100 mg 02/07/20 21:00 02/08/20 03:16 Docusate 100 Mg Cap PO Not Given BID [facility] Duloxetine HCl 60 mg 02/08/20 09:00 Duloxetine Hcl 60 Mg Capsule.Dr PO DAILY [facility] Ezetimibe 10 mg 02/08/20 09:00 Ezetimibe 10 Mg Tab PO DAILY [facility] Fluticasone Propionate 2 spray 02/08/20 09:00 Fluticasone 50mcg/[place] Nasal 16gm EA NOSTRIL DAILY [facility] Heparin Sodium (Porcine) 0 unit 02/07/20 19:55 Heparin Sodium,Porcine 5,000 Unit/Ml 1 Ml Vial IV PER PROTOCOL PRN Low PTT Protocol Hydromorphone HCl 0.5 mg 02/07/20 19:16 Hydromorphone 0.5 Mg/0.5 Ml Syringe IVP Q6HR PRN Severe Pain Hydroxyzine HCl 10 mg 02/08/20 09:00 Hydroxyzine Hcl 10 Mg Tab PO DAILY [facility] Sodium Chloride 1,000 mls @ 75 mls/hr 02/07/20 15:30 02/07/20 20:47 Saline 0.9% IV 75 mls/hr .[id number] [facility] Administration Ceftriaxone Sodium 1 gm/ 50 mls @ 100 mls/hr 02/07/20 19:15 02/07/20 20:51 Sodium Chloride IVPB 100 mls/hr Q24HR [facility] Administration Insulin Human Regular 100 unit 101 mls @ 0 mls/hr 02/07/20 21:30 02/08/20 08:36 / Sodium Chloride IV 3 units/hr .Q0M [facility] 3.03 mls/hr Titration Protocol Titrate Levothyroxine Sodium 112 mcg 02/08/20 06:30 Levothyroxine 112 Mcg Tab PO DAILY@0630 [facility] Lidocaine 1 applic 02/07/20 19:11 02/08/20 00:39 Lidocaine 5% Ointment 50 Gm Jar TOPICAL 1 applic HS PRN Administration Breakthrough Pain Magnesium Oxide 400 mg 02/07/20 21:00 02/08/20 03:16 Magnesium Oxide 400 Mg Tab PO Not Given BID [facility] Methocarbamol 750 mg 02/07/20 19:11 Methocarbamol 750 Mg Tab PO QID PRN Muscle Spasm Mirtazapine 15 mg 02/07/20 21:00 02/08/20 03:16 Mirtazapine 15 Mg Tab PO Not Given HS [facility] Modafinil 200 mg 02/08/20 09:00 Modafinil 200 Mg Tab PO DAILY [facility] Multivitamins 1 each 02/08/20 09:00 Multivitamins, Thera 1 Each Tab PO DAILY [facility] Naloxone HCl 0.2 mg 02/07/20 15:48 Naloxone 0.4 Mg/Ml 1 Ml Vial IV Q2M PRN Opioid Reversal Nitroglycerin 0.4 mg 02/07/20 19:11 Nitroglycerin Sl Tabs 0.4 Mg Tab SUBLINGUAL Q5M PRN Chest Pain Pantoprazole Sodium 40 mg 02/08/20 07:30 Pantoprazole 40 Mg Tablet PO AC-BRKFST [facility] Ropinirole HCl 4 mg 02/07/20 16:45 02/08/20 00:39 Ropinirole Hcl 4 Mg Tablet PO 4 mg TID [facility] Administration Senna 17.2 mg 02/07/20 21:00 02/08/20 03:17 Sennosides 8.6 Mg Tab PO Not Given HS [facility] Ticagrelor 90 mg 02/07/20 21:00 02/07/20 22:13 Ticagrelor 90 Mg Tab PO 90 mg BID [facility] Administration Intake and Output 02/07/20 02/08/20 02/08/20 22:59 06:59 14:59 Intake Total 0.003 144.050 5.606 Balance 0.003 144.050 5.606 Intake: Intake, IV Titration 0.003 144.050 5.606 Amount Heparin Sod,Pork in 0.45% 61.667 NaCl 25,000 unit In 0.45 % NaCl 1 250ml.bag @ 11. 364 UNITS/KG/HR 10 mls/hr IV .Q24H [facility] Rx#: [id number] Insulin Regular 100 unit 0.003 82.383 5.606 In Sodium Chloride 0.9% 100 ml @ Titrate IV .Q0M [facility] Rx#:[id number] Other: Weight 87.997 kg Patient Weight 02/09/20 06:59 Weight 87.997 kg 02/07/20 14:19 02/07/20 14:19
[2020-02-08] MEDS: LEVOTHYROXINE 112 MCG TAB PO SCH (11:01)
[2020-02-08] MEDS: PANTOPRAZOLE 40 MG TABLET PO SCH (11:02)
[2020-02-08] MEDS: MULTIVITAMINS, THERA 1 EACH TAB PO SCH (11:03)
[2020-02-08] MEDS: DULoxetine HCL 60 MG CAPSULE.DR PO SCH (11:03)
[2020-02-08] MEDS ORDERED: Magnesium Replacement Protocol 1 EACH MISC MISCELLANE PRN ×2 (11:26→15:54)
[2020-02-08] MEDS: TICAGRELOR 90 MG TAB PO SCH ×2 (11:51→22:56)
[2020-02-08] MEDS: EZETIMIBE 10 MG TAB PO SCH (11:51)
[2020-02-08] MEDS: FLUTICASONE 50MCG/SPRAY NASAL 16GM EA NOSTRIL SCH (11:52)
[2020-02-08] MEDS: ASCORBIC ACID 500 MG TAB PO SCH (11:52)
[2020-02-08] MEDS: hydrOXYzine HCL 10 MG TAB PO SCH (11:52)
[2020-02-08] MEDS: FUROSEMIDE 20 MG TAB PO SCH (11:52)
[2020-02-08] MEDS: COLCHICINE 0.6 MG EACH PO SCH (11:55)
[2020-02-08 12:00] LABS: Anisocytosis Slight; Basophils % (A) 0 %; Eosinophils % (A) 0 %; HCT 35.5 % (34.0-46.0); HGB 11.6 gm/dL (11.4-16.0); Lymphocytes % (A) 31 %; MCHC 32.6 g/dL (31.0-37.0); MCV 82.8 fL (80.0-100.0); Mean Platelet Volume 9.3; Monocytes # (A) 0.3 k/uL (0-1.0); Monocytes % (A) 4 %; Neutrophils % (A) 63 %; Platelet Count 182 k/uL (150-450); RBC 4.28 m/uL (3.80-5.40); RDW 16.6 % (11.5-15.5); WBC 6.4 k/uL (3.8-10.6)
[2020-02-08] MEDS ORDERED: SODIUM POLYSTYRENE SULFONATE 15 GM/60 ML BOTTLE PO ONE (12:00)
[2020-02-08 12:15] LABS: Chloride 108 mmol/L (98-107)
[2020-02-08 12:18] LABS: African American GFR (CKD) 74 (>60 ml/min/1.73 sqM); Anion Gap 4 mmol/L; Blood Urea Nitrogen 26 mg/dL (7-17); Calcium 8.8 mg/dL (8.4-10.2); Carbon Dioxide 24 mmol/L (22-30); Glucose 149 mg/dL (74-99); Non-African American GFR(CKD) 64 (>60 ml/min/1.73 sqM); Potassium 4.2 mmol/L (3.5-5.1); Sodium 136 mmol/L (137-145)
[2020-02-08 12:21] LABS: Glucose,Whole Blood 112 mg/dL (75-99)
[2020-02-08] MEDS: MAGNESIUM SULFATE-D5W PMX 1 GM in DEXTROSE/WATER 1 100ML.BAG IVPB SCH ×2 (13:52→15:26)
[2020-02-08 14:05] LABS: Glucose,Whole Blood 163 mg/dL (75-99)
[2020-02-08 15:08] LABS: Glucose,Whole Blood 239 mg/dL (75-99)
[2020-02-08] MEDS ORDERED: Potassium Replacement Protocol 1 EACH MISC MISCELLANE PRN (15:54)
[2020-02-08 16:00] LABS: Glucose,Whole Blood 272 mg/dL (75-99)
[2020-02-08] MEDS ORDERED: INSULIN DETEMIR (LEVEMIR) 100 UNIT/ML SYR SQ ONE (16:15)
--- NOTE | 2020-02-08 16:56 | PN ---
PROGRESS NOTE DATE OF SERVICE: 02/08/2020 This 69-year-old woman who was admitted with severe dehydration as well as renal failure and acute tubular necrosis is being closely monitored. The patient has uncontrolled blood sugars also. The creatinine was found to be 1.18. At this time the patient is complaining of weakness. Sugars were 609. Currently sugars are between 100 and 200, and almost 101 units of insulin were given during the past 24 hours. Patient also has hypomagnesemia. Past medical history reviewed. REVIEW OF SYSTEMS: CARDIOVASCULAR SYSTEM: No angina, palpitations. RESPIRATORY SYSTEM: As mentioned earlier. GI: As mentioned earlier. : No dysuria or retention. NERVOUS SYSTEM: No numbness, weakness. CURRENT MEDICATIONS: Reviewed. They include [place] 5 mg, Xanax, vitamin C, aspirin, Lipitor, Rocephin, Colcrys, Colace, Cymbalta, Zetia, Flonase, Lasix, Dilaudid, Atarax, Xylocaine, magnesium oxide, Robaxin, Remeron, Provigil, multivitamins, Narcan, Nitrostat, Protonix, Requip, Senokot, Brilinta. Doses are reviewed. PHYSICAL EXAMINATION: Patient is alert, oriented x3. Pulse 77, blood pressure 117/68, respiration 18, temperature 97.2, pulse ox 99% on room air. HEENT: Conjunctivae normal. NECK: No jugular venous distention. CARDIOVASCULAR SYSTEM: S1, S2 muffled. RESPIRATORY SYSTEM: Breath sounds diminished at the bases. Scattered rhonchi and crackles. ABDOMEN: Soft, obese, nontender. LEGS: No edema. No swelling. NERVOUS SYSTEM: No focal deficit. LABS: Sodium 136, potassium 4.2, creatinine 0.91. BUN is 26. Glucose is 149. UA noted. COVID- 19 is negative. ASSESSMENT: 1. Severe dehydration as well as acute renal failure with acute tubular necrosis, prerenal factors. 2. Diabetes mellitus, type 2, uncontrolled with hyperosmolar state without any evidence of ketoacidosis. 3. Syncope because of orthostatic hypotension. 4. Hypomagnesemia. 5. Hyponatremia. 6. Hyperkalemia. 7. Acute urinary tract infection, present on admission. 8. History of diabetes mellitus, type 2. 9. History of myocardial infarction. 10.History of sleep apnea. 11.History of hydrocephalus. 12.History of back surgery. 13.History of knee surgery. 14.History of coronary artery disease, stent. 15.History of degenerative joint disease. 16.History of depression. 17.Previous [id number] myocardial infarction and stenting of the right coronary artery. 18.History of congestive heart failure with chronic systolic dysfunction, ejection fraction 45% to 50%. 19.FULL CODE. RECOMMENDATIONS AND DISCUSSION: I recommend to continue current medications, continue symptomatic treatment. I would recommend continuing with Lasix at this time. Stop the IV fluids. Continue the rest of the medications. I would recommend Lantus 50 units subcutaneously b.i.d. and also stop the insulin drip in 2 hours and Lantus 30 units subcutaneously today and monitor blood sugars closely. Do Accu-Cheks before meals and at bedtime, also. Continue with the antibiotic. Otherwise PT, OT evaluation. Prognosis is guarded because of multiple complex medical issues. Further recommendations to follow. MMMADDIEL / PEGGYN: [id number] /
[2020-02-08 17:30] LABS: Glucose,Whole Blood 231 mg/dL (75-99)
[2020-02-08 19:51] LABS: Glucose,Whole Blood 277 mg/dL (75-99)
[2020-02-08] MEDS: INSULIN ASPART (NovoLOG) 100 UNIT/ML VIAL SQ SCH (22:56)
[2020-02-08] MEDS: INSULIN DETEMIR (LEVEMIR) 100 UNIT/ML SYR SQ SCH (22:56)
[2020-02-09 06:18] LABS: Anisocytosis Slight; HCT 35.2 % (34.0-46.0); HGB 11.6 gm/dL (11.4-16.0); MCHC 32.9 g/dL (31.0-37.0); MCV 85.1 fL (80.0-100.0); Mean Platelet Volume 8.8; Platelet Count 160 k/uL (150-450); RBC 4.13 m/uL (3.80-5.40); RDW 16.3 % (11.5-15.5); WBC 4.5 k/uL (3.8-10.6)
[2020-02-09 07:06] LABS: Band Neutrophils % 1 %; Lymphocytes # (M) 1.62 k/uL (1.0-4.8); Monocytes # (M) 0.36 k/uL (0-1.0); Neutrophils % (M) 55 %; Nucleated Red Blood Cells 0 /100 WBC (0-0); Total Cells Counted 100
[2020-02-09] MEDS: LEVOTHYROXINE 112 MCG TAB PO SCH (07:51)
[2020-02-09 07:55] LABS: Glucose,Whole Blood 108 mg/dL (75-99)
[2020-02-09] MEDS: INSULIN ASPART (NovoLOG) 100 UNIT/ML VIAL SQ SCH ×4 (08:01→21:54)
[2020-02-09] MEDS: DOCUSATE 100 MG CAP PO SCH ×2 (08:12→20:42)
[2020-02-09] MEDS: PANTOPRAZOLE 40 MG TABLET PO SCH (08:12)
[2020-02-09] MEDS: COLCHICINE 0.6 MG EACH PO SCH (08:13)
[2020-02-09] MEDS: DULoxetine HCL 60 MG CAPSULE.DR PO SCH (08:13)
[2020-02-09] MEDS: FUROSEMIDE 20 MG TAB PO SCH (08:14)
[2020-02-09] MEDS: EZETIMIBE 10 MG TAB PO SCH (08:14)
[2020-02-09] MEDS: hydrOXYzine HCL 10 MG TAB PO SCH (08:14)
[2020-02-09] MEDS: ASCORBIC ACID 500 MG TAB PO SCH (08:14)
[2020-02-09] MEDS: MULTIVITAMINS, THERA 1 EACH TAB PO SCH (08:15)
[2020-02-09] MEDS: rOPINIRole HCL 4 MG TABLET PO SCH ×3 (08:15→20:43)
[2020-02-09] MEDS: TICAGRELOR 90 MG TAB PO SCH ×2 (08:15→20:43)
[2020-02-09] MEDS: MAGNESIUM OXIDE 400 MG TAB PO SCH ×2 (08:15→20:42)
[2020-02-09 10:16] LABS: African American GFR (CKD) 66.1 (60.0-200.0); Anion Gap 6.1 mmol/L (4.00-12.00); Calcium 8.9 mg/dL (8.7-10.3); Carbon Dioxide 25.9 mmol/L (21.6-31.8); Magnesium 1.8 mg/dL (1.5-2.4); Potassium 4.3 mmol/L (3.5-5.5)
[2020-02-09] MEDS: FLUTICASONE 50MCG/SPRAY NASAL 16GM EA NOSTRIL SCH (10:31)
[2020-02-09] MEDS: INSULIN DETEMIR (LEVEMIR) 100 UNIT/ML SYR SQ SCH ×2 (11:34→22:24)
[2020-02-09 11:51] LABS: Glucose,Whole Blood 114 mg/dL (75-99)
[2020-02-09 12:49] VITALS: BMI 29.5
--- NOTE | 2020-02-09 14:13 | P.PN ---
Subjective HISTORY OF PRESENTING ILLNESS This is a pleasant 69-year-old female past medical history significant for coronary artery disease status post recent PCI to the mid RCA with in-stent restenosis from previous stent placement in the setting of a non-ST elevated myocardial infarction, ischemic cardiomyopathy with ejection fraction 45%, hyper tension, dyslipidemia, diabetes mellitus, obstructive sleep apnea and frequent episodes of near-syncope/syncope. She follows in the office with Dr. Ruiz. Pt is seen and examined laying flat in bed in no acute distress. Orthostatic vital signs have been unremarkable, however she continues to feel light headed when she changes positions, specifically from sitting to standing. Blood pressure supine 127/78 standing 134/72. PHYSICAL EXAMINATION CONSTITUTIONAL: No apparent distress. HEENT: Head is normocephalic. Pupils are equal, round. Sclerae anicteric. Mucous membranes of the mouth are moist. No JVD. No carotid bruit. CHEST EXAMINATION: Lungs are clear to auscultation. No chest wall tenderness is noted on palpation or with deep breathing. HEART EXAMINATION: Regular rate and rhythm. S1, S2 heard. No murmurs, gallops or rub. EXTREMITIES: 2+ peripheral pulses, no lower extremity edema and no calf tenderness. ASSESSMENT Syncope secondary to hypotension Coronary artery disease Recent non-ST elevated myocardial infarction status post PCI maintained on dual antiplatelet therapy Ischemic cardiomyopathy Hypertension in the past Dyslipidemia Diabetes mellitus Obstructive sleep apnea PLAN Telemetry tracings reviewed. She is having intermittent episodes of atrial tachycardia. Some P-wave are noted of differing morphology. Difficult to discern if a-fib. We will continue to monitor on telemetry and attempt to get an EKG if possible during an episode. Recommend tilt table study tomorrow to assess for dysautonomia given her ongoing symptoms of dizziness despite normal orthostatic blood pressures. Nurse Practitioner note has been reviewed, I agree with a documented findings and plan of care. Patient was seen and examined. Objective - Vital Signs Vital signs: Vital Signs Temp 97.6 F 02/09/20 06:05 Pulse 67 02/09/20 06:05 Resp 16 02/09/20 06:05 BP 113/77 02/09/20 06:05 Pulse Ox 99 02/09/20 06:05 Intake & Output 02/08/20 02/09/20 02/09/20 18:59 06:59 18:59 Intake Total 18.614 590 Output Total 600 Balance -581.386 590 Weight 87.997 kg Intake: Intake, IV Titration 18.614 Amount Insulin Regular 100 unit 18.614 In Sodium Chloride 0.9% 100 ml @ Titrate IV .Q0M [facility] Rx#:[id number] Oral 590 Output: Urine 600 Other: Voiding Method Bedside Commode Bedside Commode Bedside Commode # Voids 2 4 - Labs CBC & Chem 7: 02/09/20 05:33 02/09/20 05:33 Labs: Abnormal Lab Results - Last 24 Hours (Table) 02/08/20 02/08/20 02/08/20 Range/Units 14:03 15:05 15:59 RDW (11.5-15.5) % Est GFR (CKD-EPI)NonAf (60.0-200.0) BUN/Creatinine Ratio (12.00-20.00) Ratio Glucose (70-110) mg/dL POC Glucose (mg/dL) 163 H 239 H 272 H (75-99) mg/dL 02/08/20 02/08/20 02/09/20 Range/Units 17:28 19:50 05:33 RDW 16.3 H (11.5-15.5) % Est GFR (CKD-EPI)NonAf (60.0-200.0) BUN/Creatinine Ratio (12.00-20.00) Ratio Glucose (70-110) mg/dL POC Glucose (mg/dL) 231 H 277 H (75-99) mg/dL 02/09/20 02/09/20 02/09/20 Range/Units 05:33 07:55 11:50 RDW (11.5-15.5) % Est GFR (CKD-EPI)NonAf 57.0 L (60.0-200.0) BUN/Creatinine Ratio 22.00 H (12.00-20.00) Ratio Glucose 146 H (70-110) mg/dL POC Glucose (mg/dL) 108 H 114 H (75-99) mg/dL Microbiology - Last 24 Hours (Table) 02/07/20 20:36 Blood Culture - Preliminary Blood No Growth after 24 hours 02/08/20 12:15 Urine Culture - Preliminary Urine,Clean Catch
[2020-02-09] MEDS: MECLIZINE 12.5 MG TAB PO SCH ×2 (15:27→20:44)
--- NOTE | 2020-02-09 16:34 | PN ---
PROGRESS NOTE DATE OF SERVICE: 02/09/2020 This 69-year-old woman who was admitted with severe dehydration as well as renal failure and acute tubular necrosis is being closely monitored. The patient also had cardiac arrhythmia. Patient also complained of dizziness when standing up. The patient is not orthostatic positive, but however the patient had either multifocal atrial tachycardia or atrial fibrillation. Cardiology following the patient closely. Cardiology is also planning a tilt-table test at this time. Past medical history reviewed. REVIEW OF SYSTEMS: Cardiovascular system: No angina or palpitations. Respiration: As mentioned earlier. GI as mentioned earlier. : No dysuria. NERVOUS SYSTEM: No numbness or weakness. CURRENT MEDICATIONS: Reviewed and include: [place], Xanax, vitamin C, aspirin, Lipitor, Colcrys, Colace, Cymbalta, Zetia, doses reviewed. PHYSICAL EXAM: Patient is alert, oriented x3. Pulse 74, blood pressure 134/70, respirations 16, temperature 97.9, pulse ox 99% on room air. No orthostatic changes. HEENT: Conjunctivae normal. NECK: No JVD. CARDIOVASCULAR: S1, S2 muffled. RESPIRATORY SYSTEM: Breath sounds diminished at the bases. A few scattered rhonchi and crackles. ABDOMEN: Soft, nontender. LEGS are no edema. No swelling. LABS: CBC within normal limits. Glucose 146. ASSESSMENT: 1. Severe dehydration as well as acute renal failure with acute tubular necrosis, prerenal factors. 2. Diabetes mellitus type 2, uncontrolled with hyperosmolar state without any evidence of ketoacidosis. 3. Syncope because of orthostatic hypotension. 4. Hypomagnesemia. 5. Hyponatremia. 6. Hyperkalemia. 7. Acute urinary tract infection present on admission. 8. History of diabetes mellitus. 9. History of myocardial infarction. 10.History of sleep apnea. 11.History of hydrocephalus. 12.History of back surgery. 13.History of knee surgery. 14.History of coronary artery disease, stent. 15.History of degenerative joint disease. 16.History of depression. 17.Previous non-ST elevation myocardial infarction and stenting of the RCA recently. 18.History of congestive heart failure with chronic systolic dysfunction, ejection fraction 45% to 50%. 19.FULL CODE. RECOMMENDATIONS AND DISCUSSION: Recommend to continue current medications, management, and symptomatic treatment. Start Antivert. Tilt-table test per Cardiology. Continue rest of medications. Continue IV fluids. Repeat labs. PT/OT evaluation. Guarded prognosis. Further recommendations to follow. MMODL / IJN: [id number] /
[2020-02-09 17:04] LABS: Glucose,Whole Blood 124 mg/dL (75-99)
[2020-02-09] MEDS: MIRTAZAPINE 15 MG TAB PO SCH (20:43)
[2020-02-09] MEDS: ATORVASTATIN 80 MG TAB PO SCH (20:43)
[2020-02-09] MEDS: SENNOSIDES 8.6 MG TAB PO SCH (20:43)
[2020-02-09] MEDS: ASPIRIN 81 MG PO SCH (20:43)
[2020-02-09 21:47] LABS: Glucose,Whole Blood 125 mg/dL (75-99)
[2020-02-10 01:15] LABS: Glucose,Whole Blood 137 mg/dL (75-99)
[2020-02-10 06:20] LABS: Anisocytosis Slight; Basophils % (A) 0 %; Eosinophils % (A) 0 %; HCT 35.2 % (34.0-46.0); HGB 11.6 gm/dL (11.4-16.0); Lymphocytes # (A) 1.6 k/uL (1.0-4.8); Lymphocytes % (A) 35 %; MCH 27.6 pg (25.0-35.0); MCHC 33.1 g/dL (31.0-37.0); MCV 83.5 fL (80.0-100.0); Mean Platelet Volume 9.1; Monocytes # (A) 0.3 k/uL (0-1.0); Monocytes % (A) 6 %; Neutrophils # (A) 2.6 k/uL (1.3-7.7); Neutrophils % (A) 56 %; Platelet Count 164 k/uL (150-450); RBC 4.21 m/uL (3.80-5.40); RDW 16.6 % (11.5-15.5); WBC 4.7 k/uL (3.8-10.6)
[2020-02-10] MEDS: LEVOTHYROXINE 112 MCG TAB PO SCH (06:28)
[2020-02-10] MEDS: PANTOPRAZOLE 40 MG TABLET PO SCH (06:29)
[2020-02-10 07:05] LABS: Glucose,Whole Blood 104 mg/dL (75-99)
[2020-02-10] MEDS ORDERED: SODIUM CHLORIDE 0.9% 500 ML 500 ML IV ONE (07:41)
[2020-02-10] MEDS: ASCORBIC ACID 500 MG TAB PO SCH (09:36)
[2020-02-10] MEDS: DULoxetine HCL 60 MG CAPSULE.DR PO SCH (09:37)
[2020-02-10] MEDS: COLCHICINE 0.6 MG EACH PO SCH (09:38)
[2020-02-10] MEDS: EZETIMIBE 10 MG TAB PO SCH (09:38)
[2020-02-10] MEDS: DOCUSATE 100 MG CAP PO SCH ×2 (09:38→21:10)
[2020-02-10] MEDS: FUROSEMIDE 20 MG TAB PO SCH (09:40)
[2020-02-10] MEDS: FLUTICASONE 50MCG/SPRAY NASAL 16GM EA NOSTRIL SCH (09:40)
[2020-02-10] MEDS: INSULIN ASPART (NovoLOG) 100 UNIT/ML VIAL SQ SCH ×4 (09:45→21:07)
[2020-02-10] MEDS: hydrOXYzine HCL 10 MG TAB PO SCH (09:46)
[2020-02-10] MEDS: rOPINIRole HCL 4 MG TABLET PO SCH ×3 (09:50→21:08)
[2020-02-10] MEDS: MECLIZINE 12.5 MG TAB PO SCH ×3 (09:50→21:08)
[2020-02-10] MEDS: MULTIVITAMINS, THERA 1 EACH TAB PO SCH (09:50)
[2020-02-10] MEDS: MAGNESIUM OXIDE 400 MG TAB PO SCH ×2 (09:50→21:08)
[2020-02-10] MEDS: TICAGRELOR 90 MG TAB PO SCH ×2 (09:51→21:08)
[2020-02-10 09:56] LABS: Glucose,Whole Blood 108 mg/dL (75-99)
[2020-02-10 10:04] LABS: African American GFR (CKD) 66.1 (60.0-200.0); Calcium 8.9 mg/dL (8.7-10.3)
[2020-02-10] MEDS: AMIODARONE 200 MG TAB PO SCH ×2 (10:09→16:49)
[2020-02-10 11:37] LABS: Glucose,Whole Blood 153 mg/dL (75-99)
--- NOTE | 2020-02-10 13:23 | P.PN ---
Subjective Progress Note Date: 02/10/20 HISTORY OF PRESENT ILLNESS: Patient examined this morning at the bedside. She denies chest pain or pressure. She denies shortness of breath. Currently denies dizziness or lightheadedness. Vital signs are stable. Telemetry reviewed. Patient continues to have episodes of multifocal atrial tachycardia. PHYSICAL EXAM: VITAL SIGNS: Reviewed. GENERAL: Well-developed in no acute distress. NECK: Supple. No JVD or thyromegaly LUNGS: Respirations even and unlabored. Lungs essentially clear to auscultation bilaterally. HEART: Regular rate and rhythm. S1 and S2 heard. EXTREMITIES: Normal range of motion. No clubbing or cyanosis. Peripheral pulses intact. No lower extremity edema ASSESSMENT: Syncope secondary to hypotension Multifocal atrial tachycardia Coronary artery disease Recent non-ST elevated myocardial infarction status post PCI maintained on dual antiplatelet therapy Ischemic cardiomyopathy Hypertension in the past Dyslipidemia Diabetes mellitus Obstructive sleep apnea PLAN: Continue to hold antihypertensive medications Dr. Murphy recommends beginning oral amiodarone secondary to multifocal atrial tachycardia. Patient will be started on amiodarone 200 mg 3 times a day. This should continue for 2 weeks. Then decrease amiodarone to 200 mg twice a day for 2 weeks, and then decrease amiodarone to 200 mg daily Patient to follow up in the office with Dr. Ruiz Nurse practitioner note has been reviewed by physician. Signing provider agrees with the documented findings, assessment, and plan of care. Objective - Vital Signs Vital signs: Vital Signs Temp 97.8 F 02/10/20 06:01 Pulse 86 02/10/20 09:30 Resp 18 02/10/20 06:01 BP 136/79 02/10/20 09:30 Pulse Ox 98 02/10/20 09:30 Intake & Output 02/09/20 02/10/20 02/10/20 18:59 06:59 18:59 Intake Total 236 1500 50 Balance 236 1500 50 Weight 90.6 kg 90.17 kg Intake: IV 50 Intake, IV Titration 200 Amount cefTRIAXone 1 gm In 200 Sodium Chloride 0.9% 50 ml @ 100 mls/hr IVPB Q24HR [facility] Rx#:[id number] Oral 236 1300 Other: Voiding Method Bedside Commode Bedside Commode # Voids 2 3 - Labs CBC & Chem 7: 02/10/20 05:43 02/10/20 05:43 Labs: Abnormal Lab Results - Last 24 Hours (Table) 02/09/20 02/09/20 02/10/20 Range/Units 17:03 21:34 01:13 RDW (11.5-15.5) % Est GFR (CKD-EPI)NonAf (60.0-200.0) Glucose (70-110) mg/dL POC Glucose (mg/dL) 124 H 125 H 137 H (75-99) mg/dL 02/10/20 02/10/20 02/10/20 Range/Units 05:43 05:43 07:00 RDW 16.6 H (11.5-15.5) % Est GFR (CKD-EPI)NonAf 57.0 L (60.0-200.0) Glucose 111 H (70-110) mg/dL POC Glucose (mg/dL) 104 H (75-99) mg/dL 02/10/20 02/10/20 Range/Units 09:37 11:36 RDW (11.5-15.5) % Est GFR (CKD-EPI)NonAf (60.0-200.0) Glucose (70-110) mg/dL POC Glucose (mg/dL) 108 H 153 H (75-99) mg/dL Microbiology - Last 24 Hours (Table) 02/07/20 20:36 Blood Culture - Preliminary Blood No Growth after 48 hours 02/08/20 12:15 Urine Culture - Final Urine,Clean Catch
[2020-02-10 16:49] LABS: Glucose,Whole Blood 144 mg/dL (75-99)
--- NOTE | 2020-02-10 19:02 | P.PN ---
Subjective Progress Note Date: 02/10/20 69-year-old female patient admitted with severe dehydration as well as renal failure due to acute tubular necrosis; while in the hospital patient had cardiac arrhythmia and complains of dizziness while standing up; orthostatic vital signs have been negative; EKG is being monitored and reveals multifocal atrial tachycardia or atrial fibrillation Patient is scheduled for tilt table testing for further evaluation of dizziness Objective - Vital Signs Vital signs: Vital Signs Temp 97.8 F 02/10/20 06:01 Pulse 86 02/10/20 09:30 Resp 18 02/10/20 06:01 BP 136/79 02/10/20 09:30 Pulse Ox 98 02/10/20 09:30 Intake & Output 02/09/20 02/10/20 02/10/20 18:59 06:59 18:59 Intake Total 236 1500 50 Balance 236 1500 50 Weight 90.6 kg 90.17 kg Intake: IV 50 Intake, IV Titration 200 Amount cefTRIAXone 1 gm In 200 Sodium Chloride 0.9% 50 ml @ 100 mls/hr IVPB Q24HR [facility] Rx#:[id number] Oral 236 1300 Other: Voiding Method Bedside Commode Bedside Commode # Voids 2 3 - Exam PHYSICAL EXAMINATION: GENERAL: The patient is alert and oriented x3, not in any acute distress. Well developed, well nourished. HEENT: Pupils are round and equally reacting to light. EOMI. No scleral icterus. No conjunctival pallor. Normocephalic, atraumatic. No pharyngeal erythema. No thyromegaly. CARDIOVASCULAR: S1 and S2 present. No murmurs, rubs, or gallops. PULMONARY: Chest is clear to auscultation, no wheezing or crackles. ABDOMEN: Soft, nontender, nondistended, normoactive bowel sounds. No palpable organomegaly. MUSCULOSKELETAL: No joint swelling or deformity. EXTREMITIES: No cyanosis, clubbing, or pedal edema. NEUROLOGICAL: Gross neurological examination did not reveal any focal deficits. SKIN: No rashes. - Labs CBC & Chem 7: 02/10/20 05:43 02/10/20 05:43 Labs: Abnormal Lab Results - Last 24 Hours (Table) 02/09/20 02/09/20 02/10/20 Range/Units 17:03 21:34 01:13 RDW (11.5-15.5) % Est GFR (CKD-EPI)NonAf (60.0-200.0) Glucose (70-110) mg/dL POC Glucose (mg/dL) 124 H 125 H 137 H (75-99) mg/dL 02/10/20 02/10/20 02/10/20 Range/Units 05:43 05:43 07:00 RDW 16.6 H (11.5-15.5) % Est GFR (CKD-EPI)NonAf 57.0 L (60.0-200.0) Glucose 111 H (70-110) mg/dL POC Glucose (mg/dL) 104 H (75-99) mg/dL 02/10/20 02/10/20 Range/Units 09:37 11:36 RDW (11.5-15.5) % Est GFR (CKD-EPI)NonAf (60.0-200.0) Glucose (70-110) mg/dL POC Glucose (mg/dL) 108 H 153 H (75-99) mg/dL Microbiology - Last 24 Hours (Table) 02/07/20 20:36 Blood Culture - Preliminary Blood No Growth after 48 hours 02/08/20 12:15 Urine Culture - Final Urine,Clean Catch Assessment and Plan Assessment: Syncope secondary to hypotension Coronary artery disease Recent non-ST elevated myocardial infarction status post PCI maintained on dual antiplatelet therapy Ischemic cardiomyopathy Hypertension in the past Dyslipidemia Diabetes mellitus Obstructive sleep apnea PLAN Telemetry tracings reviewed. She is having intermittent episodes of atrial tachy cardia. Some P-wave are noted of differing morphology. Difficult to discern if a-fib. We will continue to monitor on telemetry and attempt to get an EKG if possible during an episode. Recommend tilt table study tomorrow to assess for dysautonomia given her ongoing symptoms of dizziness despite normal orthostatic blood pressures.
[2020-02-10 20:15] LABS: Glucose,Whole Blood 193 mg/dL (75-99)
[2020-02-10] MEDS: INSULIN DETEMIR (LEVEMIR) 100 UNIT/ML SYR SQ SCH (21:07)
[2020-02-10] MEDS: ASPIRIN 81 MG PO SCH (21:08)
[2020-02-10] MEDS: ATORVASTATIN 80 MG TAB PO SCH (21:08)
[2020-02-10] MEDS: MIRTAZAPINE 15 MG TAB PO SCH (21:08)
[2020-02-10] MEDS: SENNOSIDES 8.6 MG TAB PO SCH (21:10)
[2020-02-11] MEDS: AMIODARONE 200 MG TAB PO SCH ×4 (00:32→22:21)
[2020-02-11] MEDS: LEVOTHYROXINE 112 MCG TAB PO SCH (06:38)
[2020-02-11] MEDS: PANTOPRAZOLE 40 MG TABLET PO SCH (06:38)
[2020-02-11 07:40] LABS: Glucose,Whole Blood 186 mg/dL (75-99)
--- NOTE | 2020-02-11 10:00 | P.PN ---
Subjective Progress Note Date: 02/11/20 Principal diagnosis: Cardiac arrhythmia This is a very pleasant 16-year-old female patient was coronary artery disease and prior revascularization as well as ischemic cardiomyopathy as well as hypertension and dyslipidemia who was admitted to the hospital with syncope. She was diagnosed was multifocal atrial tachycardia and she was seen yesterday by Dr. Murphy. She was started on amiodarone. Patient was seen today. She is asymptomatic from a cardiovascular standpoint ov erview. She seems to be tolerating the amiodarone very well but she would like to order day. Beside that she continues to be on dual antiplatelet therapy as well as lipid medication. No symptoms of chest pain or chest discomfort or shortness of breath. Objective - Vital Signs Vital signs: Vital Signs Temp 97.7 F 02/11/20 03:57 Pulse 67 02/11/20 03:57 Resp 18 02/11/20 03:57 BP 121/72 02/11/20 03:57 Pulse Ox 98 02/11/20 03:57 Intake & Output 02/10/20 02/11/20 02/11/20 18:59 06:59 18:59 Intake Total 572 350 Balance 572 350 Intake: IV 100 cefTRIAXone 1 gm In 50 Sodium Chloride 0.9% 50 ml @ 100 mls/hr IVPB Q24HR [facility] Rx#:[id number] Oral 472 350 Other: Voiding Method Bedside Commode # Voids 2 2 - Constitutional General appearance: Present: no acute distress - Respiratory Respiratory: bilateral: CTA - Cardiovascular Rhythm: regular Heart sounds: normal: S1, S2 - Labs CBC & Chem 7: 02/10/20 05:43 02/10/20 05:43 Labs: Abnormal Lab Results - Last 24 Hours (Table) 02/10/20 02/10/20 02/10/20 Range/Units 05:43 11:36 16:47 Est GFR (CKD-EPI)NonAf 57.0 L (60.0-200.0) Glucose 111 H (70-110) mg/dL POC Glucose (mg/dL) 153 H 144 H (75-99) mg/dL 02/10/20 02/11/20 Range/Units 20:14 07:39 Est GFR (CKD-EPI)NonAf (60.0-200.0) Glucose (70-110) mg/dL POC Glucose (mg/dL) 193 H 186 H (75-99) mg/dL Microbiology - Last 24 Hours (Table) 02/07/20 20:36 Blood Culture - Preliminary Blood No Growth after 72 hours Assessment and Plan Assessment: Assessment #1 multifocal atrial tachycardia #2 coronary artery disease #3 multiple comorbid conditions Plan #1 continue the current medical regimen #2 monitor the patient for additional 24 hours #3 follow-up with the patient
[2020-02-11] MEDS: MULTIVITAMINS, THERA 1 EACH TAB PO SCH (10:03)
[2020-02-11] MEDS: DULoxetine HCL 60 MG CAPSULE.DR PO SCH (10:03)
[2020-02-11] MEDS: FUROSEMIDE 20 MG TAB PO SCH (10:03)
[2020-02-11] MEDS: DOCUSATE 100 MG CAP PO SCH ×2 (10:03→22:18)
[2020-02-11] MEDS: MAGNESIUM OXIDE 400 MG TAB PO SCH ×2 (10:03→22:17)
[2020-02-11] MEDS: rOPINIRole HCL 4 MG TABLET PO SCH ×3 (10:06→22:21)
[2020-02-11] MEDS: ASCORBIC ACID 500 MG TAB PO SCH (10:07)
[2020-02-11] MEDS: MECLIZINE 12.5 MG TAB PO SCH ×3 (10:07→22:21)
[2020-02-11] MEDS: hydrOXYzine HCL 10 MG TAB PO SCH (10:07)
[2020-02-11] MEDS: EZETIMIBE 10 MG TAB PO SCH (10:07)
[2020-02-11] MEDS: TICAGRELOR 90 MG TAB PO SCH ×2 (10:08→22:21)
[2020-02-11] MEDS: COLCHICINE 0.6 MG EACH PO SCH (10:09)
[2020-02-11] MEDS: FLUTICASONE 50MCG/SPRAY NASAL 16GM EA NOSTRIL SCH (10:10)
[2020-02-11] MEDS: INSULIN ASPART (NovoLOG) 100 UNIT/ML VIAL SQ SCH ×4 (10:13→22:16)
[2020-02-11 12:03] LABS: Glucose,Whole Blood 198 mg/dL (75-99)
[2020-02-11 17:04] LABS: Glucose,Whole Blood 241 mg/dL (75-99)
[2020-02-11] MEDS: INSULIN DETEMIR (LEVEMIR) 100 UNIT/ML SYR SQ SCH (22:15)
[2020-02-11] MEDS: ASPIRIN 81 MG PO SCH (22:17)
[2020-02-11] MEDS: ATORVASTATIN 80 MG TAB PO SCH (22:18)
[2020-02-11] MEDS: MIRTAZAPINE 15 MG TAB PO SCH (22:21)
[2020-02-11] MEDS: SENNOSIDES 8.6 MG TAB PO SCH (22:21)
[2020-02-11 22:32] LABS: Glucose,Whole Blood 211 mg/dL (75-99)
[2020-02-12] MEDS: HEPARIN SODIUM,PORCINE 5,000 UNIT/ML 1 ML VIAL SQ SCH ×3 (01:03→15:39)
[2020-02-12 07:22] LABS: Glucose,Whole Blood 148 mg/dL (75-99)
[2020-02-12] MEDS: MULTIVITAMINS, THERA 1 EACH TAB PO SCH (09:11)
[2020-02-12] MEDS: INSULIN ASPART (NovoLOG) 100 UNIT/ML VIAL SQ SCH ×2 (09:11→12:18)
[2020-02-12] MEDS: DOCUSATE 100 MG CAP PO SCH (09:11)
[2020-02-12] MEDS: DULoxetine HCL 60 MG CAPSULE.DR PO SCH (09:11)
[2020-02-12] MEDS: MAGNESIUM OXIDE 400 MG TAB PO SCH (09:11)
[2020-02-12] MEDS: PANTOPRAZOLE 40 MG TABLET PO SCH (09:11)
[2020-02-12] MEDS: FUROSEMIDE 20 MG TAB PO SCH (09:11)
[2020-02-12] MEDS: LEVOTHYROXINE 112 MCG TAB PO SCH (09:12)
[2020-02-12] MEDS: ASCORBIC ACID 500 MG TAB PO SCH (09:13)
[2020-02-12] MEDS: rOPINIRole HCL 4 MG TABLET PO SCH ×2 (09:13→15:38)
[2020-02-12] MEDS: AMIODARONE 200 MG TAB PO SCH ×2 (09:13→15:38)
[2020-02-12] MEDS: TICAGRELOR 90 MG TAB PO SCH (09:13)
[2020-02-12] MEDS: MECLIZINE 12.5 MG TAB PO SCH ×2 (09:15→15:39)
[2020-02-12] MEDS: EZETIMIBE 10 MG TAB PO SCH (09:15)
[2020-02-12] MEDS: hydrOXYzine HCL 10 MG TAB PO SCH (09:15)
[2020-02-12] MEDS: FLUTICASONE 50MCG/SPRAY NASAL 16GM EA NOSTRIL SCH (09:16)
--- NOTE | 2020-02-12 09:41 | P.PN ---
Subjective Progress Note Date: 02/12/20 Principal diagnosis: Cardiac arrhythmia This is a very pleasant 16-year-old female patient was coronary artery disease and prior revascularization as well as ischemic cardiomyopathy as well as hypertension and dyslipidemia who was admitted to the hospital with syncope. She was diagnosed was multifocal atrial tachycardia and she was seen yesterday by Dr. Murphy. She was started on amiodarone. The patient was seen today. She is asymptomatic from a cardiovascular standpoin t of view. She continues to be on amiodarone. Beside that she is on dual antiplatelet therapy. From the cardiac standpoint, she is a stable. No need for any further cardiac workup at this point. She is to have a follow-up. Objective - Vital Signs Vital signs: Vital Signs Temp 97.6 F 02/12/20 04:30 Pulse 71 02/12/20 04:30 Resp 14 02/12/20 09:07 BP 127/77 02/12/20 04:30 Pulse Ox 98 02/12/20 04:30 Intake & Output 02/11/20 02/12/20 02/12/20 18:59 06:59 18:59 Intake Total 828 1260 300 Output Total 601 Balance 227 1260 300 Intake: IV 100 cefTRIAXone 1 gm In 100 Sodium Chloride 0.9% 50 ml @ 100 mls/hr IVPB Q24HR [facility] Rx#:[id number] Oral 828 1160 300 Output: Urine 601 Other: Voiding Method Bedside Commode Bedside Commode # Voids 2 3 - Constitutional General appearance: Present: no acute distress - Respiratory Respiratory: bilateral: CTA - Cardiovascular Rhythm: regular Heart sounds: normal: S1, S2 - Labs CBC & Chem 7: 02/10/20 05:43 02/10/20 05:43 Labs: Abnormal Lab Results - Last 24 Hours (Table) 02/11/20 02/11/20 02/11/20 Range/Units 12:02 16:52 22:29 POC Glucose (mg/dL) 198 H 241 H 211 H (75-99) mg/dL 02/12/20 Range/Units 07:20 POC Glucose (mg/dL) 148 H (75-99) mg/dL Microbiology - Last 24 Hours (Table) 02/07/20 20:36 Blood Culture - Preliminary Blood No Growth after 96 hours Assessment and Plan Assessment: Assessment #1 multifocal atrial tachycardia #2 coronary artery disease #3 multiple comorbid conditions Plan #1 continue the current medical regimen #2 the patient can be discharged home in the next 12-24 hours.
[2020-02-12] MEDS: COLCHICINE 0.6 MG EACH PO SCH (09:51)
[2020-02-12 10:01] LABS: Anisocytosis Slight; HCT 40.4 % (34.0-46.0); HGB 13.3 gm/dL (11.4-16.0); MCH 27.8 pg (25.0-35.0); MCHC 33.1 g/dL (31.0-37.0); Mean Platelet Volume 8.6; Platelet Count 185 k/uL (150-450); RDW 16.5 % (11.5-15.5)
[2020-02-12 10:18] LABS: African American GFR (CKD) 80 (>60 ml/min/1.73 sqM); Anion Gap 6 mmol/L; Blood Urea Nitrogen 17 mg/dL (7-17); Calcium 9.2 mg/dL (8.4-10.2); Carbon Dioxide 30 mmol/L (22-30); Chloride 101 mmol/L (98-107); Glucose 132 mg/dL (74-99); Magnesium 1.4 mg/dL (1.6-2.3); Non-African American GFR(CKD) 69 (>60 ml/min/1.73 sqM); Potassium 4.5 mmol/L (3.5-5.1); Sodium 137 mmol/L (137-145)
[2020-02-12 11:41] LABS: Glucose,Whole Blood 131 mg/dL (75-99)
[2020-02-12 12:34] VITALS: BP 114/80; PULSE 85; RESP 16; TEMP 98.3
--- NOTE | 2020-02-12 12:55 | P.PN ---
Subjective Progress Note Date: 02/11/20 Principal diagnosis: Syncope secondary to hypotension Acute renal failure/severe dehydration Acute UTI; present on admission 69-year-old female patient admitted with severe dehydration as well as renal failure due to acute tubular necrosis; while in the hospital patient had cardiac arrhythmia and complains of dizziness while standing up; orthostatic vital signs have been negative; EKG is being monitored and reveals multifocal atrial tachycardia or atrial fibrillation Patient is scheduled for tilt table testing for further evaluation of dizziness 02/11/2020 Patient is seen and evaluated resting comfortably in bed; denies any specific complaints; reports improvement in dizziness Patient has been placed on amiodarone and remains on dual antiplatelet therapy and statins; cardiology following and recommending to continue current management and monitor patient for another 24 hours Patient remains on IV ceftriaxone for UTI; urine culture is negative thus far; we will continue with another 24 hours of empirically antibiotic therapy which could be discontinued at time of discharge Objective - Vital Signs Vital signs: Vital Signs Temp 97.7 F 02/11/20 03:57 Pulse 67 02/11/20 03:57 Resp 18 02/11/20 03:57 BP 121/72 02/11/20 03:57 Pulse Ox 98 02/11/20 03:57 Intake & Output 02/10/20 02/11/20 02/11/20 18:59 06:59 18:59 Intake Total 572 350 Output Total 600 Balance 572 350 -600 Intake: IV 100 cefTRIAXone 1 gm In 50 Sodium Chloride 0.9% 50 ml @ 100 mls/hr IVPB Q24HR [facility] Rx#:[id number] Oral 472 350 Output: Urine 600 Other: Voiding Method Bedside Commode # Voids 2 2 2 - Exam PHYSICAL EXAMINATION: GENERAL: The patient is alert and oriented x3, not in any acute distress. Well developed, well nourished. HEENT: Pupils are round and equally reacting to light. EOMI. No scleral icterus. No conjunctival pallor. Normocephalic, atraumatic. No pharyngeal erythema. No thyromegaly. CARDIOVASCULAR: S1 and S2 present. No murmurs, rubs, or gallops. PULMONARY: Chest is clear to auscultation, no wheezing or crackles. ABDOMEN: Soft, nontender, nondistended, normoactive bowel sounds. No palpable organomegaly. MUSCULOSKELETAL: No joint swelling or deformity. EXTREMITIES: No cyanosis, clubbing, or pedal edema. NEUROLOGICAL: Gross neurological examination did not reveal any focal deficits. SKIN: No rashes. - Labs CBC & Chem 7: 02/12/20 09:00 02/12/20 09:00 Labs: Abnormal Lab Results - Last 24 Hours (Table) 02/10/20 02/10/20 02/11/20 Range/Units 16:47 20:14 07:39 POC Glucose (mg/dL) 144 H 193 H 186 H (75-99) mg/dL 02/11/20 Range/Units 12:02 POC Glucose (mg/dL) 198 H (75-99) mg/dL Microbiology - Last 24 Hours (Table) 02/07/20 20:36 Blood Culture - Preliminary Blood No Growth after 72 hours Assessment and Plan Assessment: Syncope secondary to hypotension Coronary artery disease Recent non-ST elevated myocardial infarction status post PCI maintained on dual antiplatelet therapy Ischemic cardiomyopathy Hypertension in the past Dyslipidemia Diabetes mellitus Obstructive sleep apnea PLAN Telemetry tracings reviewed. She is having intermittent episodes of atrial tachycardia. Some P-wave are noted of differing morphology. Difficult to discern if a-fib. We will continue to monitor on telemetry and attempt to get an EKG if possible during an episode. Recommend tilt table study tomorrow to assess for dysautonomia given her ongoing symptoms of dizziness despite normal orthostatic blood pressures.
[2020-02-12] MEDS ORDERED: CALCIUM CARB-MAG CARB-FOLIC 1 EACH TAB PO SCH (16:00)
--- NOTE | 2020-02-12 16:11 | P.DS ---
Providers Date of admission: 02/07/20 15:48 Attending physician: Westley Esparza MD Consults: 02/07/20 19:15 Consult Physician Routine Consulting Provider: Denis Hooks Consult Reason/Comments: hypotension Do you want consulting provider notified?: Yes [facility] Course: 69-year-old female patient admitted with severe dehydration as well as renal failure due to acute tubular necrosis; while in the hospital patient had cardiac arrhythmia and complains of dizziness while standing up; orthostatic vital signs have been negative; EKG is being monitored and reveals multifocal atrial tachycardia or atrial fibrillation Patient is scheduled for tilt table testing for further evaluation of dizziness 02/11/2020 Patient is seen and evaluated resting comfortably in bed; denies any specific complaints; reports improvement in dizziness Patient has been placed on amiodarone and remains on dual antiplatelet therapy and statins; cardiology following and recommending to continue current management and monitor patient for another 24 hours Patient remains on IV ceftriaxone for UTI; urine culture is negative thus far; we will continue with another 24 hours of empirically antibiotic therapy which could be discontinued at time of discharge 02/12/2020 Patient remains clinically stable; urine culture is negative; no need for IV antibiotic; patient will be discharged on oral amiodarone and follow-up with cardiology for further recommendations Patient Condition at Discharge: Stable Plan - Discharge Summary Discharge Rx Participant: No New Discharge Prescriptions: New Amiodarone [Cordarone] 200 mg PO TID 14 Days #45 tab Continue Aspirin [Adult Low Dose Aspirin EC] 81 mg PO HS Insulin Detemir (Levemir) [Levemir] 38 unit SQ HS Colchicine [Colcrys] 0.3 - 0.6 mg PO DAILY Ticagrelor [Brilinta] 90 mg PO BID Nitroglycerin Sl Tabs [Nitrostat] 0.4 mg SUBLINGUAL Q5M PRN PRN Reason: Chest Pain Lidocaine 5% Oint [Xylocaine 5% Oint] 1 applic TOPICAL HS PRN PRN Reason: Breakthrough Pain rOPINIRole HCL [Requip] 4 mg PO TID Sennosides [Senna] 17.2 mg PO HS Multivitamins, Thera [Multivitamin (formulary)] 1 tab PO DAILY Mirtazapine [Remeron] 15 mg PO HS sitaGLIPtin PHOS/metFORMIN HCL [Janumet 50-1,000 mg Tablet] 1 tab PO BID methocarbamoL [Robaxin] 750 mg PO QID PRN PRN Reason: Muscle Spasm Magnesium Oxide [Mag-Ox] 400 mg PO BID Levothyroxine Sodium [Synthroid] 112 mcg PO DAILY Insulin Lispro [humaLOG Kwikpen] See Protocol SQ AC-TID hydrOXYzine HCL [Atarax] 10 mg PO DAILY Fluticasone Nasal [place] [Flonase Nasal [place]] 2 spr EA NOSTRIL DAILY Ezetimibe [Zetia] 10 mg PO DAILY DULoxetine HCL [Cymbalta] 60 mg PO DAILY Docusate [Colace] 100 mg PO BID Desloratadine [Clarinex] 5 mg PO DAILY Atorvastatin Calcium [Lipitor] 80 mg PO HS Ascorbic Acid [Vitamin C] 500 mg PO DAILY HYDROcodone/APAP 5-325MG [Dunbar 5-325] 1 tab PO Q4HR PRN PRN Reason: Pain modafiniL [Provigil] 200 mg PO DAILY Metoprolol Tartrate [Lopressor] 12.5 mg PO BID Lisinopril [Zestril] 5 mg PO DAILY Naproxen 500 mg PO BID-W/MEALS Furosemide [Lasix] 20 - 40 mg PO DAILY PRN PRN Reason: Edema Discharge Medication List Aspirin [Adult Low Dose Aspirin EC] 81 mg PO HS 08/11/17 [History] Colchicine [Colcrys] 0.3 - 0.6 mg PO DAILY 08/11/17 [History] Insulin Detemir (Levemir) [Levemir] 38 unit SQ HS 08/11/17 [History] Lidocaine 5% Oint [Xylocaine 5% Oint] 1 applic TOPICAL HS PRN 08/11/17 [History] Nitroglycerin Sl Tabs [Nitrostat] 0.4 mg SUBLINGUAL Q5M PRN 08/11/17 [History] Ticagrelor [Brilinta] 90 mg PO BID 08/11/17 [History] Ascorbic Acid [Vitamin C] 500 mg PO DAILY 12/27/19 [History] Atorvastatin Calcium [Lipitor] 80 mg PO HS 12/27/19 [History] DULoxetine HCL [Cymbalta] 60 mg PO DAILY 12/27/19 [History] Desloratadine [Clarinex] 5 mg PO DAILY 12/27/19 [History] Docusate [Colace] 100 mg PO BID 12/27/19 [History] Ezetimibe [Zetia] 10 mg PO DAILY 12/27/19 [History] Fluticasone Nasal [place] [Flonase Nasal [place]] 2 spr EA NOSTRIL DAILY 12/27/19 [History] HYDROcodone/APAP 5-325MG [[place] 5-325] 1 tab PO Q4HR PRN 12/27/19 [History] Insulin Lispro [humaLOG Kwikpen] See Protocol SQ AC-TID 12/27/19 [History] Levothyroxine Sodium [Synthroid] 112 mcg PO DAILY 12/27/19 [History] Magnesium Oxide [Mag-Ox] 400 mg PO BID 12/27/19 [History] Mirtazapine [Remeron] 15 mg PO HS 12/27/19 [History] Multivitamins, Thera [Multivitamin (formulary)] 1 tab PO DAILY 12/27/19 [History] Sennosides [Senna] 17.2 mg PO HS 12/27/19 [History] hydrOXYzine HCL [Atarax] 10 mg PO DAILY 12/27/19 [History] methocarbamoL [Robaxin] 750 mg PO QID PRN 12/27/19 [History] modafiniL [Provigil] 200 mg PO DAILY 12/27/19 [History] rOPINIRole HCL [Requip] 4 mg PO TID 12/27/19 [History] sitaGLIPtin PHOS/metFORMIN HCL [Janumet 50-1,000 mg Tablet] 1 tab PO BID 12/27/19 [History] Furosemide [Lasix] 20 - 40 mg PO DAILY PRN 02/07/20 [History] Lisinopril [Zestril] 5 mg PO DAILY 02/07/20 [History] Metoprolol Tartrate [Lopressor] 12.5 mg PO BID 02/07/20 [History] Naproxen 500 mg PO BID-W/MEALS 02/07/20 [History] Amiodarone [Cordarone] 200 mg PO TID 14 Days #45 tab 02/12/20 [Rx] Follow up Appointment(s)/Referral(s): Medhat Asif DO [Primary Care Provider] - 1-2 days Kimberyln Ruiz MD [STAFF PHYSICIAN] - 1 Week
[2020-02-12 17:06] LABS: Glucose,Whole Blood 180 mg/dL (75-99)
== END 2020-02-12 18:28 | disposition home or self-care (01) | DRG 682 ==
LOC: EC 13:28 → 6NMEDSUR 15:48 → 5NMEDONC 02-08 06:33
PROVIDERS: ADMIT Internal Medicine; ATTEND Internal Medicine
DX: N17.0 Acute kidney failure with tubular necrosis (principal); E11.00 Type 2 diabetes mellitus with hyperosmolarity without nonketotic hyperglycemic-hyperosmolar coma (NKHHC); E87.1 Hypo-osmolality and hyponatremia; I47.1 Supraventricular tachycardia; I50.22 Chronic systolic (congestive) heart failure; N39.0 Urinary tract infection, site not specified; Z20.828 Contact with and (suspected) exposure to other viral communicable diseases; I11.0 Hypertensive heart disease with heart failure; I27.22 Pulmonary hypertension due to left heart disease; E11.42 Type 2 diabetes mellitus with diabetic polyneuropathy; I48.91 Unspecified atrial fibrillation; G90.1 Familial dysautonomia [Riley-Day]; E11.65 Type 2 diabetes mellitus with hyperglycemia; Z79.4 Long term (current) use of insulin; E86.0 Dehydration; G47.33 Obstructive sleep apnea (adult) (pediatric); E83.42 Hypomagnesemia; I25.10 Atherosclerotic heart disease of native coronary artery without angina pectoris; I95.1 Orthostatic hypotension; E87.5 Hyperkalemia; M19.90 Unspecified osteoarthritis, unspecified site; F32.9 Major depressive disorder, single episode, unspecified; E78.5 Hyperlipidemia, unspecified; I25.5 Ischemic cardiomyopathy; I08.1 Rheumatic disorders of both mitral and tricuspid valves; E03.9 Hypothyroidism, unspecified; G25.81 Restless legs syndrome; G89.29 Other chronic pain; M54.9 Dorsalgia, unspecified; H35.30 Unspecified macular degeneration; K58.9 Irritable bowel syndrome, unspecified; K21.9 Gastro-esophageal reflux disease without esophagitis; I25.2 Old myocardial infarction; Z71.3 Dietary counseling and surveillance; Z79.02 Long term (current) use of antithrombotics/antiplatelets; Z79.82 Long term (current) use of aspirin; Z79.899 Other long term (current) drug therapy; Z79.890 Hormone replacement therapy; Z95.5 Presence of coronary angioplasty implant and graft; Z98.51 Tubal ligation status; Z98.890 Other specified postprocedural states; Z87.440 Personal history of urinary (tract) infections; Z87.442 Personal history of urinary calculi; Z88.0 Allergy status to penicillin; Z82.49 Family history of ischemic heart disease and other diseases of the circulatory system
CPT/HCPCS: 36415; 71046; 80048; 80053; 81001; 83605; 83735; 84484; 85025; 85027; 85610; 85730; 87040; 87086; 87635; 93005; 93660; 96361; 96365; 96366; 96367; 96376; 99291

== ENCOUNTER 2020-03-27 07:06 | Day surgery (SDC) | payer MEDICARE, OTHER ==
[2020-03-20 15:17] VITALS: BMI 29.2
[~2020-03-27 07:06] MED LIST: CLINDAMYCIN 600 MG in SODIUM CHLORIDE 0.9% IRRIGATIO 250 ML IRRIGATION ONE; SODIUM CHLORIDE 0.9% 1,000 ML IV SCH
[2020-03-27] MEDS ORDERED: DEXTROSE 50% SYRINGE 50 ML IVP ONE ×2 (10:06→10:15)
[2020-03-27 10:10] LABS: Glucose,Whole Blood 85 mg/dL (75-99)
[2020-03-27 10:11] VITALS: RESP 18; TEMP 98.4
[2020-03-27 10:17] LABS: Anisocytosis Slight; Basophils % (A) 0 %; Eosinophils % (A) 0 %; HGB 13.1 gm/dL (11.4-16.0); Lymphocytes # (A) 2.3 k/uL (1.0-4.8); Lymphocytes % (A) 37 %; MCH 28.1 pg (25.0-35.0); MCHC 33.6 g/dL (31.0-37.0); MCV 83.5 fL (80.0-100.0); Mean Platelet Volume 9.3; Monocytes # (A) 0.3 k/uL (0-1.0); Monocytes % (A) 5 %; Neutrophils # (A) 3.3 k/uL (1.3-7.7); Neutrophils % (A) 54 %; Platelet Count 175 k/uL (150-450); RBC 4.67 m/uL (3.80-5.40); RDW 16.7 % (11.5-15.5); WBC 6.2 k/uL (3.8-10.6)
[2020-03-27 10:31] LABS: Glucose,Whole Blood 146 mg/dL (75-99)
[2020-03-27 10:35] LABS: Calcium 9.7 mg/dL (8.4-10.2); Potassium 4.5 mmol/L (3.5-5.1)
[2020-03-27] MEDS ORDERED: TICAGRELOR 90 MG TAB PO STA (10:45)
[2020-03-27] MEDS ORDERED: DEXTROSE 50% SYRINGE 50 ML IVP STA (10:46)
[2020-03-27] MEDS ORDERED: fentaNYL (PF) 50 MCG/ML 2 ML AMP ONE (12:00)
[2020-03-27] MEDS ORDERED: KETAMINE 10 MG/ML 20 ML VIAL ONE (12:00)
[2020-03-27] MEDS ORDERED: PROPOFOL 10 MG/ML 20 ML VIAL IV ONE (12:00)
[2020-03-27] MEDS ORDERED: MIDAZOLAM 2 MG/2 ML VIAL ONE (12:00)
[2020-03-27] MEDS ORDERED: IOPAMIDOL-370 50ML BTL INJ ONE (12:17)
[2020-03-27] MEDS: CLINDAMYCIN 900 MG in DEXTROSE 5% IN WATER 50 ML IVPB PRN ×4 (12:30→12:39)
[2020-03-27] MEDS ORDERED: LIDOCAINE 1% INJ 10MG/ML (20 ML MDV) ONE ×4 (12:32→15:29)
[2020-03-27] MEDS ORDERED: LIDOCAINE 1% INJ 10MG/ML (20 ML MDV) SQ ONE ×3 (12:43→13:02)
--- NOTE | 2020-03-27 15:50 | P.EPPROC ---
- EP Procedure Note Electrophysiology Procedure Note: Extended procedure This is a long procedure on account of the following #1 [place] venous access in the left axillary vein was very difficult. This is an account of the anatomy and the position of the left axillary vein relative to the first rib and clavicle. Multiple attempts were made and finally we were able to get 3 access was. There is a valve at the axillary subclavian junction that made it difficult to pass a micro-puncture while. This for the procedure took at least 30-45 minutes simply to get access #2 His bundle lead thresholds and stability With the third access, the his sheath was placed in the right atrium and His bundle lead was placed. We were able to acquire His bundle positioning and excellent His bundle signals with every single attempt made. The lead was screwed in and excellent thresholds were obtained. Mostly nonselective capture below 2 V at 1 ms. However every time the sheath was withdrawn they'll be dislodgment of the lead The leads and also dislodge with screwing in motion. This was despite the fact that it every single attempt a good His bundle signal with excellent thresholds were obtained in the lead was not screwed in Finally we were able to get a very stable position with excellent thresholds and nonselective capture However as the leads being sewn down the heel of the lead withdrew but without any evident macro dislodgment of the tip. Despite that the thresholds increased significantly and he had RV capture and even 4 V at 1 ms When this lead was extracted it is very difficult to unscrew the lead from his position. Therefore despite being extremely well seated, and being difficult to unscrew this His bundle lead from the tissue, the thresholds changed significantly. Finally there was a lead was removed 4/ Repeat access was obtained and a new sheath and a new His bundle lead was positioned. Once again with every attempt a good His bundle signal with excellent capture thresholds were noted in the lead was not screwed in. Once the lead was screwed in either with a screw-in motion or in the sheath was slightly withdrawn the leads were dislodge repeatedly Finall His bundle lead placement was abandoned and a dual-chamber pacemaker was implanted AV node Wenckebach block in the sedated state was greater than 140 bpm at a prolonged [place] interval
[2020-03-27] MEDS ORDERED: ACETAMINOPHEN TAB 325 MG TAB PO PRN (15:52)
[2020-03-27] MEDS ORDERED: ACETAMINOPHEN IV (For NPO) 1,000 MG in EMPTY BAG 1 BAG IVPB ONE (15:57)
--- NOTE | 2020-03-27 16:12 | P.PRLE ---
RE: Luciana Granados Dear Dr. 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 She'll continue to follow with you Dr. Ruiz as before Thank you for entrusting me with the care of the patient Warm regards Sincerely Sai Murphy
--- NOTE | 2020-03-27 16:35 | CE ---
CARDIAC ELECTROPHYSIOLOGY REPORT Luciana Granados has significant bradycardia. 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 She was brought in for pacemaker implantation. Patient was brought to the EP lab in a fasting state. Written informed consent was obtained prior to the procedure. The left shoulder area was prepped and draped as per protocol and 1% lidocaine was used for local anesthesia. Venous sheaths were placed the right axillary vein. Please see a separate dictation on axillary vein access. The right atrial lead was placed. This was Medtronic model number 4574, 53 cm in length and serial number [id number]. The pacing threshold 0.7 V at 0.4 milliseconds, pacing impedance of 551 ohms, P waves 2.3 mV. The RV lead placed was model number 4074, 58 cm in length and serial number [id number]. This is a passive lead position in the RV apex. Pacing threshold 0.75 V at 0.4 milliseconds, pacing impedance of 1273 ohms, R-waves 4-5 mV. Please see separate dictation regarding extended procedure. Both leads were secured to the underlying pectoralis muscle using 2 nonabsorbable sutures. Pocket was irrigated with antibiotic solution. Leads were connected to the generator (Medtronic model number W3DR01, serial number [id number], Fern Colvin DR MRI. Leads and generator were then placed in subfascial pocket. The wound was closed in 3 layers and dressed per protocol. The device was programmed to AAI-DDD at 50 ppm. PLAN: IV antibiotics, chest x-ray and home today and followup within a week. MMODL / IJN: [id number] /
--- NOTE | 2020-03-27 16:42 | XR ---
EXAMINATION TYPE: XR chest 1V portable DATE OF EXAM: 03/27/2020 COMPARISON: 02/07/2020 INDICATION: Lead placement check TECHNIQUE: Single frontal view of the chest is obtained. FINDINGS: The heart size is normal. The pulmonary vasculature is upper limits for normal. The lungs are clear. Pacemakers over the left chest. No pneumothorax is evident. Leads are in the expected orientation. IMPRESSION: 1. No pneumothorax post pacemaker placement. 2. Slight prominence of the pulmonary vascular markings. Correlate for volume overload
[2020-03-27 16:43] LABS: Glucose,Whole Blood 135 mg/dL (75-99)
[2020-03-27 17:38] VITALS: BP 93/58; PULSE 76
[2020-03-27] MEDS ORDERED: CLINDAMYCIN 900 MG in DEXTROSE 5% IN WATER 50 ML IVPB SCH ×2 (18:30)
== END 2020-03-27 17:58 | disposition home or self-care (01) ==
LOC: CATHEP 07:06
PROVIDERS: ATTEND Internal Medicine Clinical Cardiac Electrophysiology
DX: I49.5 Sick sinus syndrome (principal); I47.1 Supraventricular tachycardia; I11.0 Hypertensive heart disease with heart failure; I50.9 Heart failure, unspecified; I25.10 Atherosclerotic heart disease of native coronary artery without angina pectoris; I25.2 Old myocardial infarction; E78.2 Mixed hyperlipidemia; G25.81 Restless legs syndrome; G47.33 Obstructive sleep apnea (adult) (pediatric); E11.40 Type 2 diabetes mellitus with diabetic neuropathy, unspecified; K21.9 Gastro-esophageal reflux disease without esophagitis; G91.2 (Idiopathic) normal pressure hydrocephalus; Z79.4 Long term (current) use of insulin; Z88.0 Allergy status to penicillin; Z79.890 Hormone replacement therapy; Z79.899 Other long term (current) drug therapy; Z87.442 Personal history of urinary calculi; Z95.5 Presence of coronary angioplasty implant and graft; Z99.89 Dependence on other enabling machines and devices; Z82.49 Family history of ischemic heart disease and other diseases of the circulatory system; Z79.82 Long term (current) use of aspirin; Z98.1 Arthrodesis status; Z87.891 Personal history of nicotine dependence
CPT/HCPCS: 33225; 33208; 80048; 85025; 71045; C1769 ×4; C1892; C1887; C1898 ×2; C1785; J2250; J2001; J3010; J0131; J2704; Q9967

== ENCOUNTER 2020-06-11 11:02 | Day surgery (SDC) | payer MEDICARE, OTHER ==
[2020-06-06 13:32] VITALS: BMI 29.6
[~2020-06-11 11:02] MED LIST changes: -CLINDAMYCIN 600 MG in SODIUM CHLORIDE 0.9% IRRIGATIO 250 ML IRRIGATION ONE
[2020-06-11 11:23] LABS: Glucose,Whole Blood 231 mg/dL (75-99)
[2020-06-11 11:25] VITALS: BP 152/78; PULSE 108; RESP 18; TEMP 97.5
[2020-06-11] MEDS ORDERED: IOPAMIDOL-370 50ML BTL INJ ONE (12:12)
--- NOTE | 2020-06-11 12:48 | P.EPPROC ---
- EP Procedure Note Electrophysiology Procedure Note: Diagnosis Ischemic cardio myopathy Ejection fraction 45% History of non-Q-wave my Hypertension, dyslipidemia, diabetes Sick sinus syndrome, tachybradycardia syndrome, postconversion pauses, abnormal AV node function with a right bundle branch block She underwent the dual-chamber pacemaker implantation over 6 weeks back There has been an increase in the RV pacing threshold She was brought in for cine fluoroscopy of the leads and left upper extremity venogram Patient was brought to the EP lab in a fasting state. Written informed consent was obtained prior to the procedure Cinefluoroscopy of the leads was performed This was compared with the cinefluoroscopy images immediate post implant Atrial lead is in stable position However the RV lead has definitely retracted a few centimeters into the RV inflow resulting in elevated RV thresholds Left upper extremity venogram 50 mL IV dye injected into the left arm Patent left axillary left subclavian innominate and SVC Plan Revision of the RV lead, preferably extraction of the passive RV lead and implantation of a screw-in RV lead in the septum His bundle pacing was attempted at the last time but the His bundle thresholds were very high. Hence a dual-chamber pacemaker is implanted She has an underlying right bundle branch block pattern Depending upon her RV pacing percentage decision will be made regarding LV pacing or not
== END 2020-06-11 13:05 | disposition home or self-care (01) ==
LOC: CATHEP 11:02
PROVIDERS: ATTEND Internal Medicine Clinical Cardiac Electrophysiology
DX: I25.5 Ischemic cardiomyopathy (principal); I25.10 Atherosclerotic heart disease of native coronary artery without angina pectoris; Z95.5 Presence of coronary angioplasty implant and graft; I10 Essential (primary) hypertension; E78.2 Mixed hyperlipidemia; E11.9 Type 2 diabetes mellitus without complications; Z87.891 Personal history of nicotine dependence; Z82.49 Family history of ischemic heart disease and other diseases of the circulatory system; Z95.0 Presence of cardiac pacemaker; Z79.82 Long term (current) use of aspirin; Z79.899 Other long term (current) drug therapy; Z79.890 Hormone replacement therapy; Z79.4 Long term (current) use of insulin
CPT/HCPCS: 36005; 75820; 76000; Q9967

== ENCOUNTER 2020-07-09 08:38 | Day surgery (SDC) | payer MEDICARE, OTHER ==
[2020-07-06 10:14] VITALS: BMI 28.1
[~2020-07-09 08:38] MED LIST changes: +CLINDAMYCIN 600 MG in SODIUM CHLORIDE 0.9% 250 ML IRRIGATION PRN; +CLINDAMYCIN 900 MG in DEXTROSE 5% IN WATER 50 ML IVPB PRN
[2020-07-09] MEDS ORDERED: SODIUM CHLORIDE 0.9% 500 ML 500 ML IV ONE (08:45)
[2020-07-09 09:10] LABS: Anisocytosis Slight; Basophils % (A) 0 %; Eosinophils % (A) 0 %; HGB 14.5 gm/dL (11.4-16.0); Lymphocytes % (A) 30 %; MCH 26.1 pg (25.0-35.0); MCHC 32.4 g/dL (31.0-37.0); MCV 80.8 fL (80.0-100.0); Mean Platelet Volume 9.5; Monocytes # (A) 0.4 k/uL (0-1.0); Monocytes % (A) 6 %; Neutrophils # (A) 4.2 k/uL (1.3-7.7); Neutrophils % (A) 63 %; Platelet Count 148 k/uL (150-450); RBC 5.57 m/uL (3.80-5.40); RDW 16.9 % (11.5-15.5); WBC 6.7 k/uL (3.8-10.6)
[2020-07-09 09:10] LABS: Glucose,Whole Blood 198 mg/dL (75-99)
[2020-07-09 09:13] VITALS: RESP 16; TEMP 98.4
[2020-07-09 09:32] LABS: Calcium 9.7 mg/dL (8.4-10.2); Potassium 3.7 mmol/L (3.5-5.1)
[2020-07-09] MEDS ORDERED: MIDAZOLAM 2 MG/2 ML VIAL ONE (10:59)
[2020-07-09] MEDS ORDERED: fentaNYL (PF) 50 MCG/ML 2 ML AMP ONE (10:59)
[2020-07-09] MEDS ORDERED: LIDOCAINE 1% INJ 10MG/ML (10 ML MDV) SQ ONE (11:34)
[2020-07-09] MEDS ORDERED: HYDROcodone/APAP 5-325MG 1 EACH TAB PO PRN (13:08)
[2020-07-09] MEDS ORDERED: ACETAMINOPHEN TAB 325 MG TAB PO PRN (13:08)
--- NOTE | 2020-07-09 14:37 | CE ---
CARDIAC ELECTROPHYSIOLOGY REPORT Mrs. Granados is a 69-year-old female who had a dual-chamber pacemaker implanted several months back. In followup, she had a high ventricular threshold when fluoroscopy was performed. There was dislodgement of the RV lead from the apex, more proximally in the mid RV area. She is brought in today for extraction of the passive RV lead and implantation of a screw-in RV pacing lead in the septum. Patient was brought to the EP lab in a fasting state. Written informed consent was obtained prior to the procedure. The left shoulder area was prepped and draped as per protocol and 1% lidocaine was used for local anesthesia. A 4 cm incision was made parallel to the deltopectoral groove, about 1.5 cm medial to it. An incision made directly over the previous surgical site and carried down to the level of the generator. The generator was explanted. Partial capsulectomy was performed. Both leads were found to be well secured to the pectoralis muscle. The RV lead sleeve was freed and access was obtained by placing the tip of the wire under the insulation of the RV lead, sliding it into the central circulation and then removing this from under the insulation to obtain central access. This was performed successfully. However, the removal of the RV lead was difficult and it required some prolonged traction and counter clock rotations to remove from the RV apex. Subsequently, it was also difficult to remove it from the subclavian vein, but finally this was with gradual manual traction and rotations, we were able to remove this lead completely while retaining central access. However, placing the sheath over this wire was difficult and serial dilatations had to be performed and a smaller sheath of 7-Australian size was used finally to gain access into the central circulation for the lead. An Advantage wire had finally to be used first for more stability. Once the 7-Australian sheath was placed in the subclavian vein, an RV lead was placed in the right ventricle and screwed in the mid RV septum. This was a Medtronic model #5076, 58 cm length and serial #[id number]. A Mond stylet was used and screwed in the RV septum. R-waves were 15 mV, pacing impedance 1185 ohms, pacing threshold 0.7 V at 0.5 milliseconds. Ten volt test was negative. This lead was secured to the pectoralis muscle and backbleeding was controlled. The lead sleeve was secured with 2 sutures. Following that, a fluoroscopy of the atrial lead revealed the atrial lead was in stable position. The lead was interrogated. P waves 2.1 mV, pacing impedance 534 ohms, pacing threshold 0.4 V at 0.5 milliseconds. The pocket was irrigated with antibiotic solution. The same generator that was previously implanted was used. This was a Medtronic Fern SDR MRI model number W3DR01, serial #[id number]. The lead and generator were then placed in subfascial pocket. The wound was closed in 4 layers and dressed per protocol. RESULT: 1. Successful extraction of the RV pacing lead which had dislodged into the mid RV. 2. Serial dilatation of the axillary subclavian junction. 3. Successful implantation of a new RV pacing lead in the RV septum, Medtronic. Patient tolerated the procedure well without any acute complications. She was reprogrammed to AAI to DDD 60 beats per minute. MMODL / IJN: [id number] /
[2020-07-09] MEDS ORDERED: ACETAMINOPHEN IV (For NPO) 1,000 MG in EMPTY BAG 1 BAG IVPB ONE (15:00)
--- NOTE | 2020-07-09 15:16 | XR ---
EXAMINATION TYPE: XR chest 1V portable DATE OF EXAM: 07/09/2020 COMPARISON: 03/27/2020 HISTORY: Pacemaker placement TECHNIQUE: Single frontal view of the chest is obtained. FINDINGS: Arthropathy of the shoulders. No overt failure. Heart size normal. Double lead pacemaker s een with the proximal lead overlying the right atrium and distal lead overlying the ventricular regio n. Metallic clip overlying the left upper quadrant abdomen. No overt failure. No sizable pleural effu ag or pneumothorax. IMPRESSION: 1. A double lead pacemaker as discussed above with no sizable pneumothorax.
[2020-07-09] MEDS ORDERED: CLINDAMYCIN 900 MG in DEXTROSE 5% IN WATER 50 ML IVPB SCH ×2 (16:00)
[2020-07-09 17:42] VITALS: PULSE 96
[2020-07-09 17:46] VITALS: BP 142/65
[2020-07-09] MEDS ORDERED: LIDOCAINE 1% INJ 10MG/ML (10 ML MDV) ONE (23:59)
== END 2020-07-09 17:25 | disposition home or self-care (01) ==
LOC: CATHEP 08:38
PROVIDERS: ATTEND Internal Medicine Clinical Cardiac Electrophysiology
DX: T82.120A Displacement of cardiac electrode, initial encounter (principal); I10 Essential (primary) hypertension; E11.9 Type 2 diabetes mellitus without complications; I47.1 Supraventricular tachycardia; E78.2 Mixed hyperlipidemia; I25.10 Atherosclerotic heart disease of native coronary artery without angina pectoris; Z79.82 Long term (current) use of aspirin; Z79.899 Other long term (current) drug therapy; Z79.4 Long term (current) use of insulin; Z79.890 Hormone replacement therapy; Z79.02 Long term (current) use of antithrombotics/antiplatelets; Z95.0 Presence of cardiac pacemaker; Z79.1 Long term (current) use of non-steroidal anti-inflammatories (NSAID); Z88.0 Allergy status to penicillin; Z95.5 Presence of coronary angioplasty implant and graft; Z98.2 Presence of cerebrospinal fluid drainage device; Z98.890 Other specified postprocedural states; Z82.49 Family history of ischemic heart disease and other diseases of the circulatory system
CPT/HCPCS: 33216; 33235; 80048; 85025; 71045; C1769 ×4; C1892; C1898; J2250; J3010; J0131; J2001; 33234

== ENCOUNTER → 2020-07-11 | Outpatient (CLI) | payer MEDICARE, OTHER ==
[2020-07-11 09:04] VITALS: BP 99/70; PULSE 114; RESP 18; TEMP 98.8
--- NOTE | 2020-07-11 10:33 | P.HPOB ---
History of Present Illness H&P Date: 07/11/20 Chief Complaint: The patient is here for her routine gynecologic exam. This is a 69-year-old with an LMP of 2000. The patient is here to establish with this office. She states she has been experiencing left pelvic and groin pain intermittently since her back surgery in August 2019. She notices this stabbing and burning type of pain when she walks. She generally does not feel the pain when she is sitting or laying down. Her orthopedic surgeon has told her he does not believe it's a orthopedic problem. She states when it does occur had can be rated at a 10 out of 10 and this is usually when she is walking. She states she usually has to sit down to do many of her chores. Currently the pain in the pelvic and groin area is 0 out of 10. She is otherwise without complaints and denies any postmenopausal bleeding. Her last pelvic exam was about 5 years ago. She states her last mammogram is also about 5 years ago. Review of Systems She states she has lost about 15 pounds over the past 3 weeks and is not sure why she has lost this weight. She denies respiratory problems. Cardiac: She had some syncopal episodes which was felt to be related to her pacemaker and she had some type of procedure done to correct an issue with the pacemaker 2 days ago. GI: She has had a decrease in appetite but denies nausea, vomiting or diarrhea. She has had weight loss as above. She denies maltreatment or problems with falling. : she denies any significant problems with urinary leakage, but at times has to get to the bathroom right away. Past Medical History Past Medical History: Coronary Artery Disease (CAD), Chest Pain / Angina, Heart Failure, Diabetes Mellitus, GERD/Reflux, Hyperlipidemia, Hypertension, Myocardial Infarction (ND), Osteoarthritis (OA), Sleep Apnea/CPAP/BIPAP, Thyroid Disorder Additional Past Medical History / Comment(s): hypotension/cardiogenic shock, dizziness, junctional rhythm. Other hx: Normal pressure hydrocephalus, IDDM type II, neuropathy bilateral feet/toes, KATI with Cpap use, chronic back pain, generalized arthritis, RLS, embedded kidney stones, bilateral macular degeneration, IBS, allergies/hives, hypothyroid, narcolepsy, cataracts, gout, and restless leg syndrome. SEE DR MORALES'S HISTORY AND PHYSICAL FOR CARDIAC HISTORY. 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 Last Myocardial Infarction Date:: 12/27/19 History of Any Multi-Drug Resistant Organisms: None Reported Past Surgical History: Back Surgery, Heart Catheterization With Stent, Joint Replacement, Orthopedic Surgery, Tubal Ligation Additional Past Surgical History / Comment(s): PCI with stents, low back surgery, brain shunt, colonoscopy, TOTAL LEFT KNEE. Colonoscopy 2016(next after 5yr). Past Anesthesia/Blood Transfusion Reactions: Motion Sickness, Postoperative Nausea & Vomiting (PONV) Date of Last Stent Placement:: 12/27/19 Past Psychological History: Depression Additional Psychological History / Comment(s): Pt resides with her spouse. She states her depression has been increased lately but denies any thoughts/plans of suicide. She uses a cane or walker to ambulate. She can drive. She has a glucometer and a Cpap. Smoking Status: Never smoker Past Alcohol Use History: Rare Past Drug Use History: None Reported Additional History: She has been since 1987 and is sexually active. She is retired. - Past Family History Father History Unknown: Yes Family Medical History: Congestive Heart Failure (CHF), Hypertension Mother History Unknown: Yes Family Medical History: Congestive Heart Failure (CHF), Hypertension Brother(s) Family Medical History: Cancer, Myocardial Infarction (ND) Additional Family Medical History / Comment(s): One brother had an ND. Another brother had prostate cancer. Medications and Allergies Home Medications Medication Instructions Recorded Confirmed Type Aspirin [Adult Low Dose Aspirin EC] 81 mg PO HS 08/11/17 07/11/20 History Colchicine [Colcrys] 0.3 - 0.6 mg PO DAILY 08/11/17 07/11/20 History Insulin Detemir (Levemir) [Levemir] 38 unit SQ HS 08/11/17 07/11/20 History Lidocaine 5% Oint [Xylocaine 5% 1 applic TOPICAL HS PRN 08/11/17 07/11/20 History Oint] Nitroglycerin Sl Tabs [Nitrostat] 0.4 mg SUBLINGUAL Q5M PRN 08/11/17 07/11/20 History Ticagrelor [Brilinta] 90 mg PO BID 08/11/17 07/11/20 History Ascorbic Acid [Vitamin C] 500 mg PO DAILY 12/27/19 07/11/20 History Atorvastatin Calcium [Lipitor] 80 mg PO HS 12/27/19 07/11/20 History DULoxetine HCL [Cymbalta] 60 mg PO DAILY 12/27/19 07/11/20 History Desloratadine [Clarinex] 5 mg PO DAILY 12/27/19 07/11/20 History Ezetimibe [Zetia] 10 mg PO DAILY 12/27/19 07/11/20 History Fluticasone Nasal [place] [Flonase 2 spr EA NOSTRIL DAILY PRN 12/27/19 07/11/20 History Nasal [place]] HYDROcodone/APAP 5-325MG [[place] 1 tab PO Q4HR PRN 12/27/19 07/11/20 History 5-325] Insulin Lispro [humaLOG Kwikpen] See Protocol SQ AC-TID 12/27/19 07/11/20 History Levothyroxine Sodium [Synthroid] 125 mcg PO DAILY 12/27/19 07/11/20 History Magnesium Oxide [Mag-Ox] 400 mg PO BID 12/27/19 07/11/20 History Multivitamins, Thera [Multivitamin 1 tab PO DAILY 12/27/19 07/11/20 History (formulary)] hydrOXYzine HCL [Atarax] 10 mg PO DAILY 12/27/19 07/11/20 History modafiniL [Provigil] 200 mg PO HS 12/27/19 07/11/20 History rOPINIRole HCL [Requip] 4 mg PO TID 12/27/19 07/11/20 History sitaGLIPtin PHOS/metFORMIN HCL 1 tab PO BID 12/27/19 07/11/20 History [Janumet 50-1,000 mg Tablet] Furosemide [Lasix] 20 - 40 mg PO DAILY PRN 02/07/20 07/11/20 History Lisinopril [Zestril] 20 mg PO DAILY 02/07/20 07/11/20 History Gabapentin [Neurontin] 400 mg PO BID 06/11/20 07/11/20 History Allergies Allergy/AdvReac Type Severity Reaction Status Date / Time Penicillins Allergy Rash/Hives Verified 07/11/20 08:57 Exam Vital Signs Temp Pulse Resp BP Pulse Ox 07/11/20 08:57 98.8 F 114 H 18 99/70 99 Intake and Output 07/10/20 07/11/20 07/11/20 22:59 06:59 14:59 Other: Weight 85.729 kg Height 5 feet 7 inches, weight 189 pounds, BMI 29.6. This is a well-developed well-nourished white female who is alert and oriented times 3 in no acute distress. She uses a cane to walk. HEENT: Within normal limits. NECK: Supple without mass or thyromegaly. CHEST AND LUNGS: Clear to auscultation. There is gauze covering her pacemaker r elated to her recent procedure on her pacemaker 2 days ago. The Nicol was not removed. There is still staining from Betadine and a septic around the gauze. She states she has a follow-up appointment from the procedure this week. HEART: Mild tachycardia with a regular rhythm. BREASTS: Are without mass or discharge. AXILLARY EXAM: Negative for adenopathy. BACK: Negative for CVA tenderness. ABDOMEN: Soft, nontender, without palpable masses. The abdomen is nondistended and mildly obese. PELVIC EXAM: Normal external genitalia with mild to moderate atrophy. There is an area of seborrheic keratosis near the midline on the mons pubis measuring 10x8 mm which the patient states has been unchanged for many years. Cervix and vagina appear normal mild to moderate atrophy. There is no unusual discharge. There is no cervical motion tenderness. There is no evidence of prolapse. The uterus is midposition, nongravid size and nontender. There are no palpable adnexal masses or tenderness. RECTAL EXAM: Rectovaginal exam is negative for mass or tenderness and is negative for occult blood. EXTREMITIES: Nontender. IMPRESSION: 1. 69-year-old menopausal female with a 10 month history of left pelvic and groin pain with walking. On exam today she is asymptomatic and there are no significant physical findings noted. Differential diagnosis will include nerve compression or irritation related to her back surgery, inguinal hernia, some type of bowel or colon compression, and less likely, ovarian mass. 2. Multiple medical problems. 3. Incomplete database with respect to her history of cervical screening. PLAN: 1. Since it did not have records from her past cervical screening, Pap smear cotest was performed. She states it has been more than 5 years since her last pelvic exam, but she states she had pelvic exams done about every 2 years prior to that. 2. Self breast awareness was discussed with the patient. 3. Screening mammogram is overdue since her last one was 5-8 years ago. The order slip was given to the patient for this. She states she will wait until after her pacemaker recheck his done later this week. 4. Initially I was going to recommend a pelvic ultrasound to check for ovarian pathology because of the pelvic and groin pains when standing. However, she is scheduled for a CT scan of the abdomen and pelvis in 2 days which was ordered by her PCP. This should be adequate to evaluate the area of the ovaries. 5. She will sign a records release for previous Pap smears from a previous PCP who is outside of this area. Once received, we will determine if we can discontinue Pap smears. 6. Osteoporosis prevention was discussed. I have stressed the importance of adequate calcium, vitamin D and regular exercise. Recommended amounts of calcium and vitamin D were also discussed. She states she had a normal bone density test about 4-5 years ago. We will plan on repeating bone density testing at her next well woman visit. 7. She believes she is due for colonoscopy and will speak with Dr. Asif's office to help her to arrange for this. 8. She did receive her flu shot last fall and has completed her Covid vaccinations. 9. If there are no gynecologic problems noted on the CT scan of the abdomen and pelvis, the patient will return in 1-2 years for her well woman examination and as needed.
== END | disposition home or self-care (01) ==
LOC: WWCWWP 08:41
PROVIDERS: ATTEND Obstetrics & Gynecology
DX: Z12.31 Encounter for screening mammogram for malignant neoplasm of breast (principal); Z78.0 Asymptomatic menopausal state; I25.10 Atherosclerotic heart disease of native coronary artery without angina pectoris; I50.9 Heart failure, unspecified; E11.9 Type 2 diabetes mellitus without complications; K21.9 Gastro-esophageal reflux disease without esophagitis; E78.5 Hyperlipidemia, unspecified; I10 Essential (primary) hypertension; I25.2 Old myocardial infarction; F32.9 Major depressive disorder, single episode, unspecified; E03.9 Hypothyroidism, unspecified

== ENCOUNTER → 2020-07-18 | Outpatient (CLI) | payer MEDICARE, OTHER ==
--- NOTE | 2020-07-19 07:32 | CT ---
EXAMINATION TYPE: CT abdomen pelvis w con DATE OF EXAM: 07/18/2020 COMPARISON: 11/30/2019 HISTORY: Abnormal weight loss, abdomen pain CT DLP: 1171.6 mGycm CONTRAST: CT scan of the abdomen and pelvis is performed with Oral Contrast and with IV Contrast, patient injec [place] with 100 mL of Isovue 300. FINDINGS: LUNG BASES-: No visible nodule. No infiltrate. LIVER/GB: No calcified gallstones. No space occupying hepatic lesion. Biliary tree is of normal ca liber. PANCREAS: No inflammation. No distinct mass. SPLEEN: No splenic enlargement. No lesion seen. ADRENALS: No nodule. No thickening. KIDNEYS/BLADDER: Renal parenchymal loss left kidney with multiple foci of calcifications. Calculi me asure up to 9 mm. No hydronephrosis present. No hydronephrosis. No nephrolithiasis. No distinct enio al mass. Urinary bladder grossly unremarkable. BOWEL: Normal appendix. Normal bowel caliber. No inflammation. GENITAL ORGANS: Calcified leiomyomas of the uterus. No adnexal masses seen. LYMPH NODES: No greater than 1cm abdominal or pelvic lymph nodes are appreciated. AORTA: No significant abnormality. OSSEOUS STRUCTURES: Postoperative changes in the lumbar spine. OTHER: No significant additional abnormality is seen. IMPRESSION: 1. Renal parenchymal loss left kidney with areas of the focal calcification. No hydronephrosis presen t. 2. Calcified leiomyomas.
== END | disposition home or self-care (01) ==
LOC: RADCTMAIN 14:59
PROVIDERS: ATTEND Family Medicine
DX: D25.9 Leiomyoma of uterus, unspecified (principal); N28.89 Other specified disorders of kidney and ureter
CPT/HCPCS: 82565; 84520; 74177; 36415; Q9967

== ENCOUNTER 2020-07-20 07:04 | Day surgery (SDC) | payer MEDICARE, OTHER ==
[~2020-07-20 07:04] MED LIST changes: -CLINDAMYCIN 600 MG in SODIUM CHLORIDE 0.9% 250 ML IRRIGATION PRN; -CLINDAMYCIN 900 MG in DEXTROSE 5% IN WATER 50 ML IVPB PRN; -SODIUM CHLORIDE 0.9% 1,000 ML IV SCH; +VANCOMYCIN 1,750 MG in SODIUM CHLORIDE 0.9% 500 ML 500 ML IVPB STA; +VANCOMYCIN 2,000 MG in SODIUM CHLORIDE 0.9% 500 ML 500 ML IVPB STA
[2020-07-20] MEDS ORDERED: VANCOMYCIN 2,000 MG in SODIUM CHLORIDE 0.9% 500 ML 500 ML IVPB STA (07:13)
[2020-07-20] MEDS ORDERED: GENTAMICIN 240 MG in SODIUM CHLORIDE 0.9% 100 ML IVPB ONE (07:15)
[2020-07-20] MEDS ORDERED: SODIUM CHLORIDE 0.9% 500 ML 500 ML IV ONE (07:22)
[2020-07-20 07:36] VITALS: RESP 16
--- NOTE | 2020-07-20 07:45 | P.HPCAR ---
History of Present Illness This is Dr. Murpyh dictating an H/P on this patient The patient was interviewed and examined IMPRESSION / ASSESSMENT: Superficial cellulitis over the pacemaker incision site that appeared within the last 24 hours almost 10 days after the implant No fever chills or systemic effects Status post implantation of new RV pacemaker lead and extraction of old, displaced lead Bradycardia PLAN: CBC with differential, ESR CRP IV vancomycin 2 g and gentamicin 240 mg Oral Keflex 500 mg 4 times a day thereafter She started oral Keflex yesterday and took 3 tablets yesterday After completion of IV antibiotics she will be discharged home on oral medications HPI History of bradycardia and she underwent a permanent pacemaker implantation, dual-chamber. The RV lead and retracted into the RV inflow. This is a passive lead. The lead was well secured to the pectoralis muscle This lead was extracted subsequently and a new screw-in lead was implanted in the RV septum The post check after one week was normal and the wound was healing well Yesterday she presents to the clinic with tenderness and redness over the pacemaker site without any systemic symptoms ROS: No fever chills or rigors, no cough, phlegm or expectoration, no nausea, vomiting or diarrhea, no hematuria, dysuria, no musculoskeletal complaints, no strokes or seizures, no skin lesions. EXAMINATION: Afebrile 97.4F, pulse rate in the 60s Breath sounds are clear line heart sounds normal Pacemaker site shows cellulitis but no tenderness today REVIEW OF LABS, ECG & MEDICAL DATA Pending Physical Exam Vitals: Vital Signs Temp Pulse Resp Pulse Ox 07/20/20 07:35 97.4 F L 65 16 93 L Intake and Output 07/19/20 07/20/20 07/20/20 22:59 06:59 14:59 Other: Weight 0 g 86.5 kg Past Medical History Past Medical History: Coronary Artery Disease (CAD), Chest Pain / Angina, Heart Failure, Diabetes Mellitus, GERD/Reflux, Hyperlipidemia, Hypertension, Myocardial Infarction (SD), Osteoarthritis (OA), Sleep Apnea/CPAP/BIPAP, Thyroid Disorder Additional Past Medical History / Comment(s): hypotension/cardiogenic shock, dizziness, junctional rhythm. Other hx: Normal pressure hydrocephalus, IDDM type II, neuropathy bilateral feet/toes, KATI with Cpap use, chronic back pain, generalized arthritis, RLS, embedded kidney stones, bilateral macular degeneration, IBS, allergies/hives, hypothyroid, narcolepsy, cataracts, gout, and restless leg syndrome. SEE DR MURPHY'S HISTORY AND PHYSICAL FOR CARDIAC HISTORY. 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 Last Myocardial Infarction Date:: 12/27/19 History of Any Multi-Drug Resistant Organisms: None Reported Past Surgical History: Back Surgery, Heart Catheterization With Stent, Joint Replacement, Orthopedic Surgery, Tubal Ligation Additional Past Surgical History / Comment(s): PCI with stents, low back surgery, brain shunt, colonoscopy, TOTAL LEFT KNEE. Colonoscopy 2016(next after 5yr). Past Anesthesia/Blood Transfusion Reactions: Motion Sickness, Postoperative Nausea & Vomiting (PONV) Date of Last Stent Placement:: 12/27/19 Past Psychological History: Depression Additional Psychological History / Comment(s): Pt resides with her spouse. She states her depression has been increased lately but denies any thoughts/plans of suicide. She uses a cane or walker to ambulate. She can drive. She has a glucometer and a Cpap. Smoking Status: Never smoker Past Alcohol Use History: Rare Past Drug Use History: None Reported - Past Family History Father History Unknown: Yes Family Medical History: Congestive Heart Failure (CHF), Hypertension Mother History Unknown: Yes Family Medical History: Congestive Heart Failure (CHF), Hypertension Brother(s) Family Medical History: Cancer, Myocardial Infarction (SD) Additional Family Medical History / Comment(s): One brother had an SD. Another brother had prostate cancer. Physical Examination Vital Signs Temp Pulse Resp Pulse Ox 07/20/20 07:35 97.4 F L 65 16 93 L Intake and Output 07/19/20 07/20/20 07/20/20 22:59 06:59 14:59 Other: Weight 0 g 86.5 kg Results Current Medications Generic Name Dose Route Start Last Admin Trade Name Freq PRN Reason Stop Dose Admin Vancomycin HCl 2,000 mg/ 500 mls @ 167 mls/hr 07/20/20 07:13 Sodium Chloride IVPB 07/20/20 10:12 ONCE STA Protocol Gentamicin Sulfate 240 mg/ 106 mls @ 106 mls/hr 07/20/20 07:15 Sodium Chloride IVPB 07/20/20 08:14 ONCE ONE Intake and Output 07/19/20 07/20/20 07/20/20 22:59 06:59 14:59 Other: Weight 0 g 86.5 kg Patient Weight 07/21/20 06:59 Weight 86.5 kg
[2020-07-20 07:54] LABS: Glucose,Whole Blood 395 mg/dL (75-99)
[2020-07-20] MEDS ORDERED: INSULIN ASPART (NovoLOG) 100 UNIT/ML VIAL SQ ONE (07:54)
[2020-07-20 08:38] LABS: Anisocytosis Slight; Basophils % (A) 0 %; Eosinophils % (A) 0 %; HCT 36.5 % (34.0-46.0); HGB 12.3 gm/dL (11.4-16.0); Lymphocytes # (A) 1.8 k/uL (1.0-4.8); Lymphocytes % (A) 26 %; MCH 27.2 pg (25.0-35.0); MCHC 33.7 g/dL (31.0-37.0); MCV 80.7 fL (80.0-100.0); Mean Platelet Volume 8.2; Microcytosis Slight; Monocytes # (A) 0.5 k/uL (0-1.0); Monocytes % (A) 7 %; Neutrophils # (A) 4.2 k/uL (1.3-7.7); Neutrophils % (A) 63 %; Platelet Count 196 k/uL (150-450); RBC 4.53 m/uL (3.80-5.40); RDW 17.3 % (11.5-15.5); WBC 6.6 k/uL (3.8-10.6)
[2020-07-20 12:04] VITALS: BP 106/80; PULSE 53; TEMP 98.2
[2020-07-20 12:28] LABS: Erythrocyte Sedimentation Rate 35 mm/hr (0-20)
== END 2020-07-20 12:09 | disposition home or self-care (01) ==
LOC: CATHEP 07:04
PROVIDERS: ATTEND Internal Medicine Clinical Cardiac Electrophysiology
DX: R00.1 Bradycardia, unspecified (principal); L03.90 Cellulitis, unspecified; I25.119 Atherosclerotic heart disease of native coronary artery with unspecified angina pectoris; I11.0 Hypertensive heart disease with heart failure; I50.9 Heart failure, unspecified; Z53.9 Procedure and treatment not carried out, unspecified reason; Z20.822 Contact with and (suspected) exposure to COVID-19; E11.42 Type 2 diabetes mellitus with diabetic polyneuropathy; Z95.0 Presence of cardiac pacemaker; K21.9 Gastro-esophageal reflux disease without esophagitis; E78.5 Hyperlipidemia, unspecified; I25.2 Old myocardial infarction; M19.90 Unspecified osteoarthritis, unspecified site; G47.33 Obstructive sleep apnea (adult) (pediatric); Z99.89 Dependence on other enabling machines and devices; E03.9 Hypothyroidism, unspecified; G89.29 Other chronic pain; M54.9 Dorsalgia, unspecified; H35.30 Unspecified macular degeneration; K58.9 Irritable bowel syndrome, unspecified; Z95.5 Presence of coronary angioplasty implant and graft; Z96.652 Presence of left artificial knee joint; Z98.51 Tubal ligation status; F32.9 Major depressive disorder, single episode, unspecified; M10.9 Gout, unspecified; G25.81 Restless legs syndrome; N20.0 Calculus of kidney; Z82.49 Family history of ischemic heart disease and other diseases of the circulatory system; Z80.42 Family history of malignant neoplasm of prostate
CPT/HCPCS: 85652; 85025; 86140; 87635; J3370; J1580

== ENCOUNTER 2020-07-29 12:53 | Inpatient (IN) | payer MEDICARE, OTHER ==
[2020-07-29] MEDS ORDERED: MORPHINE SULFATE 4 MG/ML SYRINGE IVP STA (13:33)
--- NOTE | 2020-07-29 13:35 | ED ---
General Adult HPI - General Chief complaint: Recheck/Abnormal Lab/Rx Stated complaint: Pacemaker Issues Time Seen by Provider: 07/29/20 13:14 Source: patient, family, RN notes reviewed Mode of arrival: ambulatory Limitations: no limitations - History of Present Illness Initial comments: Patient is a pleasant 69-year-old female presenting to the emergency department complaining of discomfort of left chest wall. Patient had pacemaker placed early in the year. Patient has had issues with it since that time. There was concern for possible change in placement of the lead. Patient then developed infection. Patient has been on Keflex, just finished yesterday. Patient is scheduled to have pacemaker removed tomorrow. No fevers. Patient states red ness and swelling and discomfort have all increased despite Keflex. - Related Data Home Medications Medication Instructions Recorded Confirmed Aspirin [Adult Low Dose Aspirin EC] 81 mg PO HS 08/11/17 07/27/20 Colchicine [Colcrys] 0.3 - 0.6 mg PO DAILY 08/11/17 07/27/20 Insulin Detemir (Levemir) [Levemir] 38 unit SQ HS 08/11/17 07/27/20 Lidocaine 5% Oint [Xylocaine 5% 1 applic TOPICAL HS PRN 08/11/17 07/27/20 Oint] Nitroglycerin Sl Tabs [Nitrostat] 0.4 mg SUBLINGUAL Q5M PRN 08/11/17 07/27/20 Ticagrelor [Brilinta] 90 mg PO BID 08/11/17 07/27/20 Ascorbic Acid [Vitamin C] 500 mg PO DAILY 12/27/19 07/27/20 Atorvastatin Calcium [Lipitor] 80 mg PO HS 12/27/19 07/27/20 DULoxetine HCL [Cymbalta] 60 mg PO DAILY 12/27/19 07/27/20 Desloratadine [Clarinex] 5 mg PO DAILY 12/27/19 07/27/20 Ezetimibe [Zetia] 10 mg PO DAILY 12/27/19 07/27/20 Fluticasone Nasal [place] [Flonase 2 spr EA NOSTRIL DAILY PRN 12/27/19 07/27/20 Nasal [place]] HYDROcodone/APAP 5-325MG [[place] 1 tab PO Q4HR PRN 12/27/19 07/27/20 5-325] Insulin Lispro [humaLOG Kwikpen] See Protocol SQ AC-TID 12/27/19 07/27/20 Levothyroxine Sodium [Synthroid] 125 mcg PO DAILY 12/27/19 07/27/20 Magnesium Oxide [Mag-Ox] 400 mg PO BID 12/27/19 07/27/20 Multivitamins, Thera [Multivitamin 1 tab PO DAILY 12/27/19 07/27/20 (formulary)] hydrOXYzine HCL [Atarax] 10 mg PO DAILY 12/27/19 07/27/20 modafiniL [Provigil] 200 mg PO HS 12/27/19 07/27/20 rOPINIRole HCL [Requip] 4 mg PO TID 12/27/19 07/27/20 sitaGLIPtin PHOS/metFORMIN HCL 1 tab PO BID 12/27/19 07/27/20 [Janumet 50-1,000 mg Tablet] Furosemide [Lasix] 20 - 40 mg PO DAILY PRN 02/07/20 07/27/20 Lisinopril [Zestril] 20 mg PO DAILY 02/07/20 07/27/20 Gabapentin [Neurontin] 400 mg PO BID 06/11/20 07/27/20 Allergies Allergy/AdvReac Type Severity Reaction Status Date / Time Penicillins Allergy Rash/Hives Verified 07/29/20 13:10 Review of Systems ROS Statement: Those systems with pertinent positive or pertinent negative responses have been documented in the HPI. ROS Other: All systems not noted in ROS Statement are negative. Constitutional: Denies: fever Eyes: Denies: eye pain ENT: Denies: ear pain Respiratory: Denies: cough Cardiovascular: Reports: as per HPI Endocrine: Denies: fatigue Gastrointestinal: Denies: abdominal pain Genitourinary: Denies: dysuria Musculoskeletal: Denies: back pain Skin: Reports: as per HPI, rash Past Medical History Past Medical History: Coronary Artery Disease (CAD), Chest Pain / Angina, Heart Failure, Diabetes Mellitus, GERD/Reflux, Hyperlipidemia, Hypertension, Myocardial Infarction ([place]), Osteoarthritis (OA), Sleep Apnea/CPAP/BIPAP, Thyroid Disorder Additional Past Medical History / Comment(s): hypotension/cardiogenic shock, dizziness, junctional rhythm. Other hx: Normal pressure hydrocephalus, IDDM type II, neuropathy bilateral feet/toes, KATI with Cpap use, chronic back pain, generalized arthritis, RLS, embedded kidney stones, bilateral macular degeneration, IBS, allergies/hives, hypothyroid, narcolepsy, cataracts, gout, and restless leg syndrome. SEE DR MORALES'S HISTORY AND PHYSICAL FOR CARDIAC HISTORY. PACEMAKER SITE INFECTED Last Myocardial Infarction Date:: 12/27/19 History of Any Multi-Drug Resistant Organisms: None Reported Past Surgical History: Back Surgery, EPS, Heart Catheterization With Stent, Joint Replacement, Orthopedic Surgery, Pacemaker, Tubal Ligation Additional Past Surgical History / Comment(s): PCI with stents, low back surgery, brain shunt, colonoscopy, TOTAL LEFT KNEE. Colonoscopy 2016(next after 5yr). Past Anesthesia/Blood Transfusion Reactions: Motion Sickness, Postoperative Nausea & Vomiting (PONV) Date of Last Stent Placement:: 12/27/19 Type of Cardiac Device: Permanent Pacemaker Device Placement Date:: MAR 2020 Past Psychological History: Depression Smoking Status: Never smoker Past Alcohol Use History: None Reported Past Drug Use History: None Reported - Past Family History Father History Unknown: Yes Family Medical History: Congestive Heart Failure (CHF), Hypertension Mother History Unknown: Yes Family Medical History: Congestive Heart Failure (CHF), Hypertension Brother(s) Family Medical History: Cancer, Myocardial Infarction ([place]) Additional Family Medical History / Comment(s): One brother had an IN. Another brother had prostate cancer. General Exam Limitations: no limitations General appearance: alert, in no apparent distress Head exam: Present: normocephalic Eye exam: Present: normal appearance Neck exam: Present: normal inspection Respiratory exam: Present: normal lung sounds bilaterally, chest wall tenderness (Left anterior chest wall with lower area of pacemaker site with swelling tenderness and erythema.) Cardiovascular Exam: Present: regular rate, normal rhythm Expanded Peripheral pulses: 2+: Radial (R), Radial (L), Posterior Tibialis (R), Posterior Tibialis (L) GI/Abdominal exam: Present: soft. Absent: tenderness Extremities exam: Present: normal inspection. Absent: pedal edema, calf tenderness Neurological exam: Present: alert Psychiatric exam: Present: normal affect, normal mood Skin exam: Present: erythema Course Vital Signs 07/29/20 13:11 Temperature 98.8 F Pulse Rate 114 H Respiratory 18 Rate Blood Pressure 163/101 O2 Sat by Pulse 98 Oximetry EKG Findings - EKG Comments: EKG Findings:: Sinus tachycardia with rate of 102. [place] 162. QRS 92. QT 354. QTC 461. Left axis. LVH. Septal Q waves. Inferior Q waves. No acute ST change. Medical Decision Making - Medical Decision Making Patient reevaluated. Patient updated on results and plan. Case was discussed with Dr. Fine, who will admit covering for Dr. Timoteo Hunter. Cardiology will be placed on consult. IV antibiotics started. - Lab Data Result diagrams: 07/29/20 13:52 07/29/20 13:52 Lab Results 07/29/20 07/29/20 07/29/20 Range/Units 13:52 13:52 13:52 WBC 6.4 (3.8-10.6) k/uL RBC 5.10 (3.80-5.40) m/uL Hgb 14.0 (11.4-16.0) gm/dL Hct 42.2 (34.0-46.0) % MCV 82.7 (80.0-100.0) fL MCH 27.4 (25.0-35.0) pg MCHC 33.1 (31.0-37.0) g/dL RDW 18.1 H (11.5-15.5) % Plt Count 159 (150-450) k/uL MPV 8.4 Neutrophils % 68 % Lymphocytes % 25 % Monocytes % 5 % Eosinophils % 0 % Basophils % 1 % Neutrophils # 4.4 (1.3-7.7) k/uL Lymphocytes # 1.6 (1.0-4.8) k/uL Monocytes # 0.3 (0-1.0) k/uL Eosinophils # 0.0 (0-0.7) k/uL Basophils # 0.0 (0-0.2) k/uL Anisocytosis Slight PT 10.5 (9.0-12.0) sec INR 1.0 (<1.2) APTT 23.0 (22.0-30.0) sec Sodium 136 L (137-145) mmol/L Potassium 4.3 (3.5-5.1) mmol/L Chloride 100 (98-107) mmol/L Carbon Dioxide 26 (22-30) mmol/L Anion Gap 10 mmol/L BUN 21 H (7-17) mg/dL Creatinine 0.82 (0.52-1.04) mg/dL Est GFR (CKD-EPI)AfAm 84 (>60 ml/min/1.73 sqM) Est GFR (CKD-EPI)NonAf 73 (>60 ml/min/1.73 sqM) Glucose 441 H (74-99) mg/dL Plasma Lactic Acid Quang (0.7-2.0) mmol/L Calcium 9.5 (8.4-10.2) mg/dL Total Bilirubin 0.6 (0.2-1.3) mg/dL AST 27 (14-36) U/L ALT 21 (4-34) U/L Alkaline Phosphatase 127 H (38-126) U/L Total Protein 7.0 (6.3-8.2) g/dL Albumin 4.3 (3.5-5.0) g/dL 07/29/20 Range/Units 13:52 WBC (3.8-10.6) k/uL RBC (3.80-5.40) m/uL Hgb (11.4-16.0) gm/dL Hct (34.0-46.0) % MCV (80.0-100.0) fL MCH (25.0-35.0) pg MCHC (31.0-37.0) g/dL RDW (11.5-15.5) % Plt Count (150-450) k/uL MPV Neutrophils % % Lymphocytes % % Monocytes % % Eosinophils % % Basophils % % Neutrophils # (1.3-7.7) k/uL Lymphocytes # (1.0-4.8) k/uL Monocytes # (0-1.0) k/uL Eosinophils # (0-0.7) k/uL Basophils # (0-0.2) k/uL Anisocytosis PT (9.0-12.0) sec INR (<1.2) APTT (22.0-30.0) sec Sodium (137-145) mmol/L Potassium (3.5-5.1) mmol/L Chloride (98-107) mmol/L Carbon Dioxide (22-30) mmol/L Anion Gap mmol/L BUN (7-17) mg/dL Creatinine (0.52-1.04) mg/dL Est GFR (CKD-EPI)AfAm (>60 ml/min/1.73 sqM) Est GFR (CKD-EPI)NonAf (>60 ml/min/1.73 sqM) Glucose (74-99) mg/dL Plasma Lactic Acid Quang 1.4 (0.7-2.0) mmol/L Calcium (8.4-10.2) mg/dL Total Bilirubin (0.2-1.3) mg/dL AST (14-36) U/L ALT (4-34) U/L Alkaline Phosphatase (38-126) U/L Total Protein (6.3-8.2) g/dL Albumin (3.5-5.0) g/dL Disposition Clinical Impression: Cellulitis of chest wall Disposition: ADMITTED IP TO THIS HOSP Is patient prescribed a controlled substance at d/c from ED?: No Referrals: Medhat Asif DO [Primary Care Provider] - 1-2 days Decision Time: 14:34
[2020-07-29] MEDS: SODIUM CHLORIDE 0.9% 1,000 ML IV SCH ×2 (14:04→18:19)
[2020-07-29 14:15] LABS: Anisocytosis Slight; Basophils % (A) 1 %; Eosinophils % (A) 0 %; HCT 42.2 % (34.0-46.0); Lymphocytes # (A) 1.6 k/uL (1.0-4.8); Lymphocytes % (A) 25 %; MCH 27.4 pg (25.0-35.0); MCHC 33.1 g/dL (31.0-37.0); MCV 82.7 fL (80.0-100.0); Mean Platelet Volume 8.4; Monocytes # (A) 0.3 k/uL (0-1.0); Monocytes % (A) 5 %; Neutrophils # (A) 4.4 k/uL (1.3-7.7); Neutrophils % (A) 68 %; Platelet Count 159 k/uL (150-450); RDW 18.1 % (11.5-15.5); WBC 6.4 k/uL (3.8-10.6)
[2020-07-29 14:27] LABS: Prothrombin Time 10.5 sec (9.0-12.0)
[2020-07-29 14:32] LABS: Albumin 4.3 g/dL (3.5-5.0); Calcium 9.5 mg/dL (8.4-10.2); Potassium 4.3 mmol/L (3.5-5.1); Total Bilirubin 0.6 mg/dL (0.2-1.3)
[2020-07-29] MEDS ORDERED: ACETAMINOPHEN TAB 325 MG TAB PO PRN (14:41)
[2020-07-29] MEDS ORDERED: MORPHINE SULFATE 4 MG/ML SYRINGE IV PRN (14:41)
[2020-07-29] MEDS ORDERED: NALOXONE 0.4 MG/ML 1 ML VIAL IV PRN (14:41)
--- NOTE | 2020-07-29 14:54 | XR ---
EXAMINATION TYPE: XR chest 2V DATE OF EXAM: 07/29/2020 COMPARISON: 07/09/2020 HISTORY: Pacemaker infection TECHNIQUE: FINDINGS: There is no heart failure nor confluent pneumonic infiltrate. Costophrenic angles are clear . There are no hilar masses. There is left axillary pacemaker. IMPRESSION: No active cardiopulmonary disease. No change.
[2020-07-29] MEDS ORDERED: CLINDAMYCIN 600 MG in DEXTROSE 5% IN WATER 50 ML IVPB ONE ×2 (15:00)
[2020-07-29] MEDS ORDERED: NITROGLYCERIN SL TABS 0.4 MG TAB SUBLINGUAL PRN (20:19)
[2020-07-29] MEDS ORDERED: FLUTICASONE 50MCG/SPRAY NASAL 16GM EA NOSTRIL PRN (20:19)
[2020-07-29 20:38] LABS: Glucose,Whole Blood 453 mg/dL (75-99)
[2020-07-29] MEDS ORDERED: METOPROLOL TARTRATE 25 MG TAB PO SCH (21:00)
[2020-07-29] MEDS: ASPIRIN 81 MG PO SCH (21:19)
[2020-07-29] MEDS: ATORVASTATIN 80 MG TAB PO SCH (21:19)
[2020-07-29] MEDS: HYDROcodone/APAP 10-325MG 1 EACH TAB PO SCH (21:21)
[2020-07-29] MEDS: GABAPENTIN 300 MG CAP PO SCH (21:21)
[2020-07-29] MEDS: MAGNESIUM OXIDE 400 MG TAB PO SCH (21:22)
[2020-07-29] MEDS: INSULIN ASPART (NovoLOG) 100 UNIT/ML VIAL SQ SCH (21:25)
[2020-07-29] MEDS: INSULIN DETEMIR (LEVEMIR) 100 UNIT/ML SYR SQ SCH (21:26)
[2020-07-29] MEDS: rOPINIRole HCL 4 MG TABLET PO SCH (21:31)
[2020-07-29] MEDS: CLINDAMYCIN 600 MG in DEXTROSE 5% IN WATER 50 ML IVPB SCH ×2 (22:15)
[2020-07-30 00:58] LABS: Glucose,Whole Blood 291 mg/dL (75-99)
[2020-07-30 05:25] LABS: Anisocytosis Slight; Basophils % (A) 0 %; Eosinophils % (A) 0 %; HCT 34.4 % (34.0-46.0); HGB 11.2 gm/dL (11.4-16.0); Lymphocytes # (A) 1.7 k/uL (1.0-4.8); Lymphocytes % (A) 38 %; MCH 27.2 pg (25.0-35.0); MCHC 32.6 g/dL (31.0-37.0); MCV 83.3 fL (80.0-100.0); Mean Platelet Volume 8.3; Monocytes # (A) 0.3 k/uL (0-1.0); Monocytes % (A) 8 %; Neutrophils # (A) 2.3 k/uL (1.3-7.7); Neutrophils % (A) 51 %; Platelet Count 123 k/uL (150-450); RBC 4.13 m/uL (3.80-5.40); RDW 17.9 % (11.5-15.5); WBC 4.6 k/uL (3.8-10.6)
[2020-07-30] MEDS: LEVOTHYROXINE 125 MCG TAB PO SCH (05:46)
[2020-07-30] MEDS: SODIUM CHLORIDE 0.9% 1,000 ML IV SCH ×2 (06:11→13:04)
[2020-07-30 07:13] LABS: Glucose,Whole Blood 178 mg/dL (75-99)
[2020-07-30] MEDS ORDERED: SODIUM CHLORIDE 0.9% 1,000 ML IV SCH (07:45)
[2020-07-30] MEDS: INSULIN ASPART (NovoLOG) 100 UNIT/ML VIAL SQ SCH ×4 (08:19→21:01)
[2020-07-30] MEDS ORDERED: LACTATED RINGERS 1,000 ML IV ONE (08:32)
[2020-07-30] MEDS ORDERED: PROPOFOL 10 MG/ML 20 ML VIAL IV ONE (08:32)
[2020-07-30] MEDS ORDERED: fentaNYL (PF) 50 MCG/ML 2 ML AMP ONE (08:32)
[2020-07-30] MEDS ORDERED: MIDAZOLAM 2 MG/2 ML VIAL ONE (08:32)
[2020-07-30] MEDS ORDERED: VANCOMYCIN IV PER PHARMACY 1 EACH MISC MISCELLANE PRN (09:09)
[2020-07-30] MEDS ORDERED: LIDOCAINE 2% (PF) 20 MG/ML 10 ML AMP SQ ONE (09:19)
[2020-07-30] MEDS ORDERED: LIDOCAINE 1% INJ 10MG/ML (20 ML MDV) SQ ONE (09:19)
[2020-07-30] MEDS ORDERED: LIDOCAINE 1% INJ 10MG/ML (20 ML MDV) ONE (10:29)
[2020-07-30] MEDS ORDERED: ACETAMINOPHEN TAB 325 MG TAB PO PRN (10:48)
[2020-07-30] MEDS ORDERED: ACETAMINOPHEN IV (For NPO) 1,000 MG in EMPTY BAG 1 BAG IVPB ONE (10:48)
--- NOTE | 2020-07-30 10:48 | P.EPPROC ---
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, History of dual-chamber pacemaker implant followed by revision Normal white count and afebrile Procedure Extraction of the atrial lead Extraction of the RV lead Explantation of the dual-chamber pacemaker generator Procedure details The patient was taken to the Safety Belt Installer 4 Anesthesia was present for conscious sedation IV antibiotics were administered Local anesthesia given Incision made directly of the previous surgical site and carried down to the level of the generator Excision of the margin of the wounds Superficial swab cultures Deep swab cultures Superficial tissue specimens taken Deep issue specimens taken Sent for microbiology There was no obvious evidence of infection or pus inside the pocket The pocket looked quite clean The pacemaker generator, dual-chamber, [employer] was explanted Both leads and the respective lead sleeves were freed from the soft tissue The RV lead was originally positioned in the RV septum, screw-in lead A stylet was placed and the lead screw was retracted and with gradual manual traction the lead was successfully extracted Atrial lead was a time lead. An EZ locking stylet was placed and deployed With gradual traction and counterclockwise rotation of the lead, it was successfully extracted Prior to extraction of the leads, and encircling nonabsorbable sutures placed around the site of insertion of the leads to prevent backbleeding. Once the leads were extracted the suture was tightened to prevent any backbleeding Hemostasis was assured The wound was closed in 3 layers and dressed per protocol Impression Successful extraction of the atrial and ventricular leads as well as explantation of the dual-chamber pacemaker Plan ID consult for IV antibiotic recommendations prior to reimplantation of a dual- chamber pacemaker from the right side
[2020-07-30] MEDS: HYDROcodone/APAP 10-325MG 1 EACH TAB PO SCH ×2 (11:55→21:00)
[2020-07-30] MEDS: DULoxetine HCL 60 MG CAPSULE.DR PO SCH (11:56)
[2020-07-30] MEDS: LORATADINE 10 MG TAB PO SCH (11:56)
[2020-07-30] MEDS: MAGNESIUM OXIDE 400 MG TAB PO SCH ×2 (11:56→21:00)
[2020-07-30] MEDS: GABAPENTIN 300 MG CAP PO SCH ×2 (11:56→21:00)
[2020-07-30] MEDS: MULTIVITAMINS, THERA 1 EACH TAB PO SCH (11:57)
[2020-07-30] MEDS: ASCORBIC ACID 500 MG TAB PO SCH (11:57)
[2020-07-30] MEDS: PANTOPRAZOLE 40 MG/10 ML VIAL IV SCH (11:57)
[2020-07-30] MEDS: VANCOMYCIN 1,500 MG in SODIUM CHLORIDE 0.9% 250 ML IVPB SCH (11:58)
[2020-07-30] MEDS: CLINDAMYCIN 600 MG in DEXTROSE 5% IN WATER 50 ML IVPB SCH ×2 (12:32)
[2020-07-30 12:43] LABS: Glucose,Whole Blood 157 mg/dL (75-99)
[2020-07-30] MEDS: EZETIMIBE 10 MG TAB PO SCH (13:03)
[2020-07-30] MEDS: hydrOXYzine HCL 10 MG TAB PO SCH (13:03)
[2020-07-30] MEDS: rOPINIRole HCL 4 MG TABLET PO SCH ×3 (13:03→21:20)
[2020-07-30] MEDS: lisinopriL 10 MG TAB PO SCH (13:03)
[2020-07-30] MEDS: COLCHICINE 0.6 MG EACH PO SCH (13:04)
--- NOTE | 2020-07-30 14:36 | P.HPIM ---
History of Present Illness Patient is a pleasant 69-year-old female came in for infection and discomfort in the left chest wall patient was treated for with multiple course of antibiotics for possible cellulitis in that area without any improvement because of which the patient was subsequently admitted here and patient underwent pacemaker removal. Patient is presently on clindamycin patient has been on Keflex as an outpatient. The other cultures including blood cultures were positive in the past. Infectious disease was consulted. Patient has been on antibiotics in spite of Keflex patient redness and swelling continued to get worse. Unfortunately I was unable to examine the site where she had infection as its postsurgically packed and the pacemaker was already removed. Review of Systems REVIEW OF SYSTEMS: CONSTITUTIONAL: No fever, no malaise, no fatigue. HEENT: No recent visual problems or hearing problems. Denied any sore throat. CARDIOVASCULAR: No chest pain, orthopnea, PND, no palpitations, no syncope. PULMONARY: No shortness of breath, no cough, no hemoptysis. GASTROINTESTINAL: No diarrhea, no nausea, no vomiting, no abdominal pain. NEUROLOGICAL: No headaches, no weakness, no numbness. HEMATOLOGICAL: Denies any bleeding or petechiae. GENITOURINARY: Denies any burning micturition, frequency, or urgency. MUSCULOSKELETAL/RHEUMATOLOGICAL: Denies any joint pain, swelling, or any muscle pain. ENDOCRINE: Denies any polyuria or polydipsia. The rest of the 14-point review of systems is negative. Past Medical History Past Medical History: Coronary Artery Disease (CAD), Chest Pain / Angina, Heart Failure, Diabetes Mellitus, GERD/Reflux, Hyperlipidemia, Hypertension, Myocardial Infarction ([place]), Osteoarthritis (OA), Sleep Apnea/CPAP/BIPAP, Thyroid Disorder Additional Past Medical History / Comment(s): hypotension/cardiogenic shock, dizziness, junctional rhythm. Other hx: Normal pressure hydrocephalus, IDDM type II, neuropathy bilateral feet/toes, KATI with Cpap use, chronic back pain, generalized arthritis, RLS, embedded kidney stones, bilateral macular degeneration, IBS, allergies/hives, hypothyroid, narcolepsy, cataracts, gout, and restless leg syndrome. SEE DR MORALES'S HISTORY AND PHYSICAL FOR CARDIAC HISTORY. PACEMAKER SITE INFECTED Last Myocardial Infarction Date:: 12/27/19 History of Any Multi-Drug Resistant Organisms: None Reported Past Surgical History: Back Surgery, EPS, Heart Catheterization With Stent, Joint Replacement, Orthopedic Surgery, Pacemaker, Tubal Ligation Additional Past Surgical History / Comment(s): PCI with stents, low back surgery, brain shunt, colonoscopy, TOTAL LEFT KNEE. Colonoscopy 2016(next after 5yr). Past Anesthesia/Blood Transfusion Reactions: Motion Sickness, Postoperative Nausea & Vomiting (PONV) Date of Last Stent Placement:: 12/27/19 Type of Cardiac Device: Permanent Pacemaker Device Placement Date:: MAR 2020 Smoking Status: Never smoker - Past Family History Father History Unknown: Yes Family Medical History: Congestive Heart Failure (CHF), Hypertension Mother History Unknown: Yes Family Medical History: Congestive Heart Failure (CHF), Hypertension Brother(s) Family Medical History: Cancer, Myocardial Infarction (PA) Additional Family Medical History / Comment(s): One brother had an PA. Another brother had prostate cancer. Medications and Allergies Home Medications Medication Instructions Recorded Confirmed Type Aspirin [Adult Low Dose Aspirin EC] 81 mg PO HS 08/11/17 07/29/20 History Colchicine [Colcrys] 0.6 mg PO DAILY 08/11/17 07/29/20 History Lidocaine 5% Oint [Xylocaine 5% 1 applic TOPICAL HS PRN 08/11/17 07/29/20 History Oint] Nitroglycerin Sl Tabs [Nitrostat] 0.4 mg SL Q5M PRN 08/11/17 07/29/20 History Ticagrelor [Brilinta] 90 mg PO BID 08/11/17 07/29/20 History Ascorbic Acid [Vitamin C] 500 mg PO DAILY 12/27/19 07/29/20 History Atorvastatin Calcium [Lipitor] 80 mg PO HS 12/27/19 07/29/20 History DULoxetine HCL [Cymbalta] 60 mg PO DAILY 12/27/19 07/29/20 History Desloratadine [Clarinex] 5 mg PO DAILY 12/27/19 07/29/20 History Ezetimibe [Zetia] 10 mg PO DAILY 12/27/19 07/29/20 History Fluticasone Nasal [place] [Flonase 2 spr EA NOSTRIL DAILY PRN 12/27/19 07/29/20 History Nasal [place]] Insulin Lispro [humaLOG Kwikpen] See Protocol SQ AC-TID 12/27/19 07/29/20 History Magnesium Oxide [Mag-Ox] 400 mg PO BID 12/27/19 07/29/20 History Multivitamins, Thera [Multivitamin 1 tab PO DAILY 12/27/19 07/29/20 History (formulary)] hydrOXYzine HCL [Atarax] 10 mg PO DAILY 12/27/19 07/29/20 History modafiniL [Provigil] 200 mg PO DIRECTED 12/27/19 07/29/20 History rOPINIRole HCL [Requip] 4 mg PO TID 12/27/19 07/29/20 History sitaGLIPtin PHOS/metFORMIN HCL 1 tab PO BID 12/27/19 07/29/20 History [Janumet 50-1,000 mg Tablet] Furosemide [Lasix] 20 - 40 mg PO DAILY PRN 02/07/20 07/29/20 History Lisinopril [Zestril] 10 mg PO DAILY 02/07/20 07/29/20 History Gabapentin 300 mg PO BID 07/29/20 07/29/20 History HYDROcodone/APAP 10-325MG [[place] 1 tab PO BID 07/29/20 07/29/20 History 10-325] Insulin Detemir [Levemir Flextouch] 35 units SQ HS 07/29/20 07/29/20 History Levothyroxine Sodium [Levoxyl] 125 mcg PO DAILY 07/29/20 07/29/20 History Metoprolol Tartrate [Lopressor] 25 mg PO BID 07/29/20 07/29/20 History Allergies Allergy/AdvReac Type Severity Reaction Status Date / Time Penicillins Allergy Rash/Hives Verified 07/29/20 13:10 Physical Exam Vitals: Vital Signs Temp Pulse Pulse Resp BP BP Pulse Ox 07/30/20 11:53 73 115/70 07/30/20 11:38 78 133/69 07/30/20 11:21 68 106/71 07/30/20 11:06 65 113/76 07/30/20 10:52 97.7 F 70 17 127/77 96 07/30/20 08:00 14 07/30/20 04:13 97.7 F 74 14 133/79 98 07/29/20 21:31 78 07/29/20 19:34 98.5 F 104 H 14 116/72 99 07/29/20 17:58 98.6 F 97 18 152/79 99 07/29/20 16:30 92 13 126/80 99 07/29/20 16:00 90 16 132/86 98 07/29/20 15:30 93 17 136/87 95 07/29/20 15:00 98 17 136/89 96 07/29/20 14:30 98 17 137/95 97 Intake and Output 07/29/20 07/30/20 07/30/20 22:59 06:59 14:59 Intake Total 356 Balance 356 Intake: IV 356 Other: Voiding Method Toilet Toilet # Voids 1 2 Weight 83.915 kg PHYSICAL EXAMINATION: GENERAL: The patient is alert and oriented x3, not in any acute distress. Well developed, well nourished. HEENT: Pupils are round and equally reacting to light. EOMI. No scleral icterus. No conjunctival pallor. Normocephalic, atraumatic. No pharyngeal erythema. No thyromegaly. CARDIOVASCULAR: S1 and S2 present. No murmurs, rubs, or gallops. PULMONARY: Chest is clear to auscultation, no wheezing or crackles. ABDOMEN: Soft, nontender, nondistended, normoactive bowel sounds. No palpable organomegaly. MUSCULOSKELETAL: No joint swelling or deformity. EXTREMITIES: No cyanosis, clubbing, or pedal edema. NEUROLOGICAL: Gross neurological examination did not reveal any focal deficits. SKIN: No rashes. Results CBC & Chem 7: 07/30/20 04:56 07/29/20 13:52 Labs: Abnormal Lab Results - Last 24 Hours (Table) 07/29/20 07/29/20 07/30/20 Range/Units 13:52 20:36 00:56 Hgb (11.4-16.0) gm/dL RDW (11.5-15.5) % Plt Count (150-450) k/uL Sodium 136 L (137-145) mmol/L BUN 21 H (7-17) mg/dL Glucose 441 H (74-99) mg/dL POC Glucose (mg/dL) 453 H 291 H (75-99) mg/dL Alkaline Phosphatase 127 H (38-126) U/L 07/30/20 07/30/20 07/30/20 Range/Units 04:56 07:12 12:04 Hgb 11.2 L (11.4-16.0) gm/dL RDW 17.9 H (11.5-15.5) % Plt Count 123 L (150-450) k/uL Sodium (137-145) mmol/L BUN (7-17) mg/dL Glucose (74-99) mg/dL POC Glucose (mg/dL) 178 H 157 H (75-99) mg/dL Alkaline Phosphatase (38-126) U/L Thrombosis Risk Factor Assmnt - Choose All That Apply Each Risk Factor Represents 2 Points: Age 61-74 years Thrombosis Risk Factor Assessment Total Risk Factor Score: 2 Thrombosis Risk Factor Assessment Level: Low Risk Assessment and Plan Plan: -Cellulitis, subcutaneous tissue infection at the site of pacemaker: Infectious disease was consulted, and devise as possible for infection was already removed and patient is on clindamycin which will be continued for now. -History of syncope and AV eddie disease leading to bradycardia for which patient had the pacemaker is presently removed because of infection. -Type 2 diabetes mellitus -Gastroesophageal reflux disease -Hyperlipidemia -Hypertension Sleep apnea -Hypothyroidism -Coronary artery disease with stents in the past For above-mentioned chronic medical problems patient will be resumed on appropriate home medications.
[2020-07-30] MEDS ORDERED: CLINDAMYCIN 900 MG in DEXTROSE 5% IN WATER 50 ML IVPB SCH ×2 (15:00)
[2020-07-30 17:34] LABS: Glucose,Whole Blood 327 mg/dL (75-99)
[2020-07-30] MEDS: HYDROcodone/APAP 5-325MG 1 EACH TAB PO PRN (17:36)
[2020-07-30 20:05] LABS: Glucose,Whole Blood 339 mg/dL (75-99)
[2020-07-30] MEDS: ASPIRIN 81 MG PO SCH (21:00)
[2020-07-30] MEDS: ATORVASTATIN 80 MG TAB PO SCH (21:00)
[2020-07-30] MEDS: INSULIN DETEMIR (LEVEMIR) 100 UNIT/ML SYR SQ SCH (21:01)
[2020-07-31] MEDS: VANCOMYCIN 1,500 MG in SODIUM CHLORIDE 0.9% 250 ML IVPB SCH ×2 (01:59→15:01)
[2020-07-31 06:02] LABS: African American GFR (CKD) >90 (>60 ml/min/1.73 sqM); Anion Gap 4 mmol/L; Blood Urea Nitrogen 16 mg/dL (7-17); Calcium 8.3 mg/dL (8.4-10.2); Carbon Dioxide 23 mmol/L (22-30); Chloride 108 mmol/L (98-107); Glucose 188 mg/dL (74-99); Non-African American GFR(CKD) 90 (>60 ml/min/1.73 sqM); Potassium 4.3 mmol/L (3.5-5.1); Sodium 135 mmol/L (137-145)
[2020-07-31] MEDS: LEVOTHYROXINE 125 MCG TAB PO SCH (06:07)
[2020-07-31] MEDS: SODIUM CHLORIDE 0.9% 1,000 ML IV SCH (06:08)
[2020-07-31] MEDS ORDERED: CLINDAMYCIN 900 MG in DEXTROSE 5% IN WATER 50 ML IVPB PRN ×2 (07:00)
[2020-07-31 07:12] LABS: Glucose,Whole Blood 208 mg/dL (75-99)
[2020-07-31] MEDS: PANTOPRAZOLE 40 MG/10 ML VIAL IV SCH (08:04)
[2020-07-31] MEDS: MULTIVITAMINS, THERA 1 EACH TAB PO SCH (08:05)
[2020-07-31] MEDS: EZETIMIBE 10 MG TAB PO SCH (08:05)
[2020-07-31] MEDS: ASCORBIC ACID 500 MG TAB PO SCH (08:05)
[2020-07-31] MEDS: HYDROcodone/APAP 10-325MG 1 EACH TAB PO SCH ×2 (08:05→20:45)
[2020-07-31] MEDS: GABAPENTIN 300 MG CAP PO SCH ×2 (08:05→20:45)
[2020-07-31] MEDS: hydrOXYzine HCL 10 MG TAB PO SCH (08:06)
[2020-07-31] MEDS: COLCHICINE 0.6 MG EACH PO SCH (08:06)
[2020-07-31] MEDS: MAGNESIUM OXIDE 400 MG TAB PO SCH ×2 (08:06→20:46)
[2020-07-31] MEDS: LORATADINE 10 MG TAB PO SCH (08:06)
[2020-07-31] MEDS: DULoxetine HCL 60 MG CAPSULE.DR PO SCH (08:06)
[2020-07-31] MEDS: rOPINIRole HCL 4 MG TABLET PO SCH ×3 (08:06→21:00)
[2020-07-31] MEDS: lisinopriL 10 MG TAB PO SCH (08:07)
[2020-07-31] MEDS: INSULIN ASPART (NovoLOG) 100 UNIT/ML VIAL SQ SCH ×7 (08:12→20:44)
[2020-07-31] MEDS: CEFEPIME 2 GM in SODIUM CHLORIDE 0.9% 100 ML IVPB SCH ×2 (09:28→20:46)
--- NOTE | 2020-07-31 10:21 | P.CONS ---
History of Present Illness - Reason for Consult Consult date: 07/31/20 pacemaker site infection Requesting physician: Sai Murphy - Chief Complaint Pain swelling and redness at pacemaker site x weeks - History of Present Illness Patient is a 69-year-old female with a past medical history significant for dual-chamber pacemaker placement in March 2020, patient appears in have problem with a working of the pacemaker and subsequently did have revision of the pacemaker 6 weeks ago with placement of new RV pacemaker lead and extraction of the old displaced lead, patient mentioned after the recent intervention she noticed to have a swelling and redness and pain around the pacemaker site, for the patient was admitted to this facility on 07/20/2020 with superficial cellulitis over the pacemaker incision site, patient was admitted by cardiology services with no consult infectious disease she was given doses of vancomycin and gentamicin and subsequently discharged home on oral Keflex 500 mg every 6 hours, patient presented back to the [facility] ER on 07/29/2020 complaining of discomfort the left chest wall, patient described the pain to be more of a dull aching intensity about 7 out of 10 and no radiation, with associated swelling and redness and mention slight drainage but no fever or chills with these symptoms the patient was evaluated by the ER physician on presentation to the hospital the patient was afebrile and no fever has been recorded since then patient did have a normal white count patient was taken to the labeling machine operator yesterday morning and the patient is status post extraction of pacemaker leads as well as pacemaker generator, with a operative report mentioning no evidence of any pus pocket, patient did have superficial and deep cultures obtained the patient was started on IV vancomycin and inf ectious disease was consulted for further management of antibiotic therapy Review of Systems Positive point has been mentioned in the HPI rest of the systems are negative Past Medical History Past Medical History: Coronary Artery Disease (CAD), Chest Pain / Angina, Heart Failure, Diabetes Mellitus, GERD/Reflux, Hyperlipidemia, Hypertension, Myocardial Infarction (AR), Osteoarthritis (OA), Sleep Apnea/CPAP/BIPAP, Thyroid Disorder Additional Past Medical History / Comment(s): hypotension/cardiogenic shock, dizziness, junctional rhythm. Other hx: Normal pressure hydrocephalus, IDDM type II, neuropathy bilateral feet/toes, KATI with Cpap use, chronic back pain, generalized arthritis, RLS, embedded kidney stones, bilateral macular degeneration, IBS, allergies/hives, hypothyroid, narcolepsy, cataracts, gout, and restless leg syndrome. SEE DR MURPHY'S HISTORY AND PHYSICAL FOR CARDIAC HISTORY. PACEMAKER SITE INFECTED Last Myocardial Infarction Date:: 12/27/19 History of Any Multi-Drug Resistant Organisms: None Reported Past Surgical History: Back Surgery, EPS, Heart Catheterization With Stent, Joint Replacement, Orthopedic Surgery, Pacemaker, Tubal Ligation Additional Past Surgical History / Comment(s): PCI with stents, low back surgery, brain shunt, colonoscopy, TOTAL LEFT KNEE. Colonoscopy 2016(next after 5yr). Past Anesthesia/Blood Transfusion Reactions: Motion Sickness, Postoperative Nausea & Vomiting (PONV) Date of Last Stent Placement:: 12/27/19 Type of Cardiac Device: Permanent Pacemaker Device Placement Date:: MAR 2020 Smoking Status: Never smoker - Past Family History Father History Unknown: Yes Family Medical History: Congestive Heart Failure (CHF), Hypertension Mother History Unknown: Yes Family Medical History: Congestive Heart Failure (CHF), Hypertension Brother(s) Family Medical History: Cancer, Myocardial Infarction (AR) Additional Family Medical History / Comment(s): One brother had an AR. Another brother had prostate cancer. Medications and Allergies Home Medications Medication Instructions Recorded Confirmed Type Aspirin [Adult Low Dose Aspirin EC] 81 mg PO HS 08/11/17 07/29/20 History Colchicine [Colcrys] 0.6 mg PO DAILY 08/11/17 07/29/20 History Lidocaine 5% Oint [Xylocaine 5% 1 applic TOPICAL HS PRN 08/11/17 07/29/20 History Oint] Nitroglycerin Sl Tabs [Nitrostat] 0.4 mg SL Q5M PRN 08/11/17 07/29/20 History Ticagrelor [Brilinta] 90 mg PO BID 08/11/17 07/29/20 History Ascorbic Acid [Vitamin C] 500 mg PO DAILY 12/27/19 07/29/20 History Atorvastatin Calcium [Lipitor] 80 mg PO HS 12/27/19 07/29/20 History DULoxetine HCL [Cymbalta] 60 mg PO DAILY 12/27/19 07/29/20 History Desloratadine [Clarinex] 5 mg PO DAILY 12/27/19 07/29/20 History Ezetimibe [Zetia] 10 mg PO DAILY 12/27/19 07/29/20 History Fluticasone Nasal [place] [Flonase 2 spr EA NOSTRIL DAILY PRN 12/27/19 07/29/20 History Nasal [place]] Insulin Lispro [humaLOG Kwikpen] See Protocol SQ AC-TID 12/27/19 07/29/20 History Magnesium Oxide [Mag-Ox] 400 mg PO BID 12/27/19 07/29/20 History Multivitamins, Thera [Multivitamin 1 tab PO DAILY 12/27/19 07/29/20 History (formulary)] hydrOXYzine HCL [Atarax] 10 mg PO DAILY 12/27/19 07/29/20 History modafiniL [Provigil] 200 mg PO DIRECTED 12/27/19 07/29/20 History rOPINIRole HCL [Requip] 4 mg PO TID 12/27/19 07/29/20 History sitaGLIPtin PHOS/metFORMIN HCL 1 tab PO BID 12/27/19 07/29/20 History [Janumet 50-1,000 mg Tablet] Furosemide [Lasix] 20 - 40 mg PO DAILY PRN 02/07/20 07/29/20 History Lisinopril [Zestril] 10 mg PO DAILY 02/07/20 07/29/20 History Gabapentin 300 mg PO BID 07/29/20 07/29/20 History HYDROcodone/APAP 10-325MG [[place] 1 tab PO BID 07/29/20 07/29/20 History 10-325] Insulin Detemir [Levemir Flextouch] 35 units SQ HS 07/29/20 07/29/20 History Levothyroxine Sodium [Levoxyl] 125 mcg PO DAILY 07/29/20 07/29/20 History Metoprolol Tartrate [Lopressor] 25 mg PO BID 07/29/20 07/29/20 History Allergies Allergy/AdvReac Type Severity Reaction Status Date / Time Penicillins Allergy Rash/Hives Verified 07/29/20 13:10 Physical Exam Vitals: Vital Signs Temp Pulse Resp BP Pulse Ox 07/31/20 04:23 97.9 F 78 16 100/59 97 07/30/20 20:18 97.6 F 85 18 113/72 96 07/30/20 14:03 91 120/70 07/30/20 12:34 89 100/69 07/30/20 12:03 75 124/74 07/30/20 11:53 73 115/70 07/30/20 11:38 78 133/69 07/30/20 11:21 68 106/71 07/30/20 11:06 65 113/76 07/30/20 10:52 97.7 F 70 17 127/77 96 Intake and Output 07/30/20 07/31/20 07/31/20 22:59 06:59 14:59 Intake Total 400 550 Balance 400 550 Intake: Intake, IV Titration 400 550 Amount Sodium Chloride 0.9% 1, 400 300 000 ml @ 50 mls/hr IV . Q20H [facility] Rx#:[id number] Vancomycin 1,500 mg In 250 Sodium Chloride 0.9% 250 ml @ 125 mls/hr IVPB Q16H [facility] Rx#:[id number] Other: Voiding Method Toilet Weight 94 kg GENERAL DESCRIPTION: Elderly female up in the chair, no distress. No tachypnea or accessory muscle of respiration use. HEENT: Shows Pallor , no scleral icterus. Oral mucous membrane is dry. No pharyngeal erythema or thrush NECK: Trachea central, no thyromegaly. LUNGS: Unlabored breathing. Clear to auscultation anteriorly. No wheeze or crackle. HEART: S1, S2, regular rate and rhythm. No loud murmur, left chest wall pacemaker extraction site with no redness or drainage ABDOMEN: Soft, no tenderness , guarding or rigidity, no organomegaly EXTREMITIES: No edema of feet. SKIN: No rash, no masses palpable. NEUROLOGICAL: The patient is awake, alert, oriented x3, mood and affect normal. Results CBC & Chem 7: 07/30/20 04:56 07/31/20 04:58 Labs: Abnormal Lab Results - Last 24 Hours (Table) 07/30/20 07/30/20 07/30/20 Range/Units 12:04 17:33 20:01 Sodium (137-145) mmol/L Chloride (98-107) mmol/L Glucose (74-99) mg/dL POC Glucose (mg/dL) 157 H 327 H 339 H (75-99) mg/dL Calcium (8.4-10.2) mg/dL 07/31/20 07/31/20 Range/Units 04:58 07:09 Sodium 135 L (137-145) mmol/L Chloride 108 H (98-107) mmol/L Glucose 188 H (74-99) mg/dL POC Glucose (mg/dL) 208 H (75-99) mg/dL Calcium 8.3 L (8.4-10.2) mg/dL Microbiology - Last 24 Hours (Table) 07/30/20 09:26 Gram Stain - Preliminary Chest Tissue Culture - Preliminary 07/30/20 09:26 Gram Stain - Preliminary Chest Tissue Culture - Preliminary 07/30/20 09:26 Gram Stain - Preliminary Chest Tissue Culture - Preliminary 07/30/20 09:26 Gram Stain - Preliminary Chest Wound Culture - Preliminary 07/30/20 09:26 Gram Stain - Preliminary Chest Wound Culture - Preliminary 07/30/20 09:26 Anaerobic Culture - Preliminary Chest 07/30/20 09:26 Anaerobic Culture - Preliminary Chest 07/30/20 09:26 Anaerobic Culture - Preliminary Chest 07/29/20 13:52 Blood Culture - Preliminary Blood No Growth after 24 hours 07/29/20 13:52 Blood Culture - Preliminary Blood No Growth after 24 hours Assessment and Plan Assessment: 1-patient with left chest wall cellulitis the site of a dual-chamber pacemaker that was placed in March 2020 with recent revision for removal of the ventricular lead and placement of the new lead, patient CT have problem with pain swelling or redness around the pacemaker site for the patient did receive vancomycin and gentamicin on July 20 and was treated with oral Keflex without any improvement subsequently had removal of the lesions as well as the generator however no mention of any pus at the generator site patient with no fever or elevated white count 2-patient with penicillin ALLERGY that would limit the number of antibiotic safety use however she has taken Keflex without any problem (1) Cellulitis of chest wall Current Visit: Yes Status: Acute Code(s): L03.313 - CELLULITIS OF CHEST WALL SNOMED Code(s): 74133481 Plan: 1-Vancomycin pharmacy to dose target trough of 15 while watching kidney function and Vanco trough closely 2-we will let cefepime 2 g every 12 to cover for gram-negative Discharge antibiotics will depend upon the culture report and clinical response We will follow on clinical condition and cultures to further adjust medication if needed Thank you for this consultation will follow this patient with you
--- NOTE | 2020-07-31 11:05 | PN ---
PROGRESS NOTE Mrs. Granados is a 69-year-old female with known history of coronary artery disease, history of percutaneous revascularization, permanent pacemaker implantation, who had recent signs of infection and cellulitis at the site of the pocket. She was evaluated by Dr. Murphy and underwent explantation of her pacemaker as well her wires. She is feeling better today. She has mild discomfort. She had no dizziness no palpitation. She has sinus mechanism. She denies any nausea or vomiting. She was evaluated by Dr. German to adjust her antibiotics treatment. She continues to be at this time on aspirin once a day, Lipitor 80 mg daily, colchicine, Zetia 10 mg daily, gabapentin, insulin, lisinopril 10 mg daily, levothyroxine, Protonix, and she is on vancomycin. PHYSICAL EXAMINATION: Blood pressure running in the one teens with the heart rate in the 70s. LUNGS: Clear. HEART: Regular rate and rhythm. S1, S2. No S3. No rub. Pacemaker site dressing in place. EXTREMITIES: No edema. LAB DATA: Labs data revealed potassium 4.3, BUN and creatinine 16 and 0.67. IMPRESSION: 1. Cellulitis and infection at the site of the pacemaker with explantation of the device. 2. History of coronary artery disease, status post percutaneous revascularization. 3. History of hypertension. 4. Hyperlipidemia. 5. Diabetes mellitus. RECOMMENDATION: I will restart her on Brilinta. Continue rest of medical regimen. Most likely, she will require home antibiotics and once she is stable, then the decision will be made regarding implanting the device on the right side. I have discussed those findings with the patient. MMODL / IJN: [id number] /
[2020-07-31 11:25] LABS: Glucose,Whole Blood 200 mg/dL (75-99)
[2020-07-31] MEDS: TICAGRELOR 90 MG TAB PO SCH ×2 (11:31→20:46)
--- NOTE | 2020-07-31 12:46 | P.HPCAR ---
History of Present Illness This is Dr. Murphy dictating a consult on this patient The patient was interviewed and examined on the morning of July 30, 2020 IMPRESSION / ASSESSMENT: Likely superficial infection of the pacemaker site No evidence for any systemic signs or symptoms of infection History of coronary artery disease status post coronary stenting History of atrial fibrillation and AV node disease with postconversion pauses PLAN: Extraction of the atrial and ventricular leads as well as removal of the dual- chamber pacemaker generator Tissue for culture and staining ID consult IV antibiotics per ID opinion Further management strategy to be decided thereafter HPI Patient presented to the hospital with severe pain and redness over the pacemake r site She was taking oral Keflex She been seen in the office a few days back and the procedure was only plan follow with extraction of the leads and the generator She did not complain of any fever or chills When I examined her in the morning prior to the procedure she looked well She had redness in the area with tenderness over the pacemaker site She denied any fever chills like us cough expectoration or any other systemic symptoms ROS: No fever chills or rigors, no cough, phlegm or expectoration, no nausea, vomiting or diarrhea, no hematuria, dysuria, no musculoskeletal complaints, no strokes or seizures, no skin lesions. EXAMINATION: 133/79 mmHg normal respirations with Dr. Sanchez Pulse rate in the 70s afebrile 97.7F Breath sounds are clear no rhonchi no crackles Normal heart sounds normal S1 normal S2 Redness over the pacemaker incision site Mildly tender No discharge or pus from the wound REVIEW OF LABS, ECG & MEDICAL DATA Past history of coronary artery disease status post cardiac stenting Past history of paroxysmal atrial fibrillation with postconversion pauses and ev idence of AV node disease Hypertension Type 2 diabetes Increased BMI ALLERGIES to penicillin Hypertension Status post dual-chamber pacemaker implantation Labs are reviewed normal white count, hemoglobin 11.2, platelet count 123,000 Sodium 136, potassium 4.3, BUN 21 and creatinine 0.8 Physical Exam Vitals: Vital Signs Temp Pulse Resp BP Pulse Ox 07/31/20 11:16 97.8 F 80 16 101/64 98 07/31/20 04:23 97.9 F 78 16 100/59 97 07/30/20 20:18 97.6 F 85 18 113/72 96 07/30/20 14:03 91 120/70 Intake and Output 0507/31/20 07/31/20 22:59 06:59 14:59 Intake Total 400 550 Balance 400 550 Intake: Intake, IV Titration 400 550 Amount Sodium Chloride 0.9% 1, 400 300 000 ml @ 50 mls/hr IV . Q20H [facility] Rx#:[id number] Vancomycin 1,500 mg In 250 Sodium Chloride 0.9% 250 ml @ 125 mls/hr IVPB Q16H [facility] Rx#:[id number] Other: Voiding Method Toilet Weight 94 kg Past Medical History Past Medical History: Coronary Artery Disease (CAD), Chest Pain / Angina, Heart Failure, Diabetes Mellitus, GERD/Reflux, Hyperlipidemia, Hypertension, Myocardial Infarction ([place]), Osteoarthritis (OA), Sleep Apnea/CPAP/BIPAP, Thyroid Disorder Additional Past Medical History / Comment(s): hypotension/cardiogenic shock, dizziness, junctional rhythm. Other hx: Normal pressure hydrocephalus, IDDM type II, neuropathy bilateral feet/toes, KATI with Cpap use, chronic back pain, generalized arthritis, RLS, embedded kidney stones, bilateral macular degeneration, IBS, allergies/hives, hypothyroid, narcolepsy, cataracts, gout, and restless leg syndrome. SEE DR MURPHY'S HISTORY AND PHYSICAL FOR CARDIAC HISTORY. PACEMAKER SITE INFECTED Last Myocardial Infarction Date:: 12/27/19 History of Any Multi-Drug Resistant Organisms: None Reported Past Surgical History: Back Surgery, EPS, Heart Catheterization With Stent, Joint Replacement, Orthopedic Surgery, Pacemaker, Tubal Ligation Additional Past Surgical History / Comment(s): PCI with stents, low back surgery, brain shunt, colonoscopy, TOTAL LEFT KNEE. Colonoscopy 2016(next after 5yr). Past Anesthesia/Blood Transfusion Reactions: Motion Sickness, Postoperative Nausea & Vomiting (PONV) Date of Last Stent Placement:: 12/27/19 Type of Cardiac Device: Permanent Pacemaker Device Placement Date:: MAR 2020 Smoking Status: Never smoker - Past Family History Father History Unknown: Yes Family Medical History: Congestive Heart Failure (CHF), Hypertension Mother History Unknown: Yes Family Medical History: Congestive Heart Failure (CHF), Hypertension Brother(s) Family Medical History: Cancer, Myocardial Infarction ([place]) Additional Family Medical History / Comment(s): One brother had an [place]. Another brother had prostate cancer. Physical Examination Vital Signs Temp Pulse Resp BP Pulse Ox 07/31/20 11:16 97.8 F 80 16 101/64 98 07/31/20 04:23 97.9 F 78 16 100/59 97 07/30/20 20:18 97.6 F 85 18 113/72 96 07/30/20 14:03 91 120/70 Intake and Output 07/30/20 07/31/20 07/31/20 22:59 06:59 14:59 Intake Total 400 550 Balance 400 550 Intake: Intake, IV Titration 400 550 Amount Sodium Chloride 0.9% 1, 400 300 000 ml @ 50 mls/hr IV . Q20H [facility] Rx#:[id number] Vancomycin 1,500 mg In 250 Sodium Chloride 0.9% 250 ml @ 125 mls/hr IVPB Q16H [facility] Rx#:[id number] Other: Voiding Method Toilet Weight 94 kg Results 07/30/20 04:56 07/31/20 04:58 Comprehensive Metabolic Panel 07/31/20 Range/Units 04:58 Sodium 135 L (137-145) mmol/L Potassium 4.3 (3.5-5.1) mmol/L Chloride 108 H (98-107) mmol/L Carbon Dioxide 23 (22-30) mmol/L BUN 16 (7-17) mg/dL Creatinine 0.67 (0.52-1.04) mg/dL Glucose 188 H (74-99) mg/dL Calcium 8.3 L (8.4-10.2) mg/dL Current Medications Generic Name Dose Route Start Last Admin Trade Name Freq PRN Reason Stop Dose Admin Acetaminophen 650 mg 07/30/20 10:48 Acetaminophen Tab 325 Mg Tab PO Q6HR PRN Mild Pain Hydrocodone Bitart/Acetaminophen 1 each 07/29/20 21:00 07/31/20 08:05 Hydrocodone/Apap 10-325mg 1 Each Tab PO 1 each BID [facility] Administration Hydrocodone Bitart/Acetaminophen 1 each 07/30/20 10:48 07/30/20 17:36 Hydrocodone/Apap 5-325mg 1 Each Tab PO 1 each Q4HR PRN Administration Pain Ascorbic Acid 500 mg 07/30/20 09:00 07/31/20 08:05 Ascorbic Acid 500 Mg Tab PO 500 mg DAILY [facility] Administration Aspirin 81 mg 07/29/20 21:00 07/30/20 21:00 Aspirin 81 Mg PO 81 mg HS [facility] Administration Atorvastatin Calcium 80 mg 07/29/20 21:00 07/30/20 21:00 Atorvastatin 80 Mg Tab PO 80 mg HS [facility] Administration Colchicine 0.6 mg 07/30/20 09:00 07/31/20 08:06 Colchicine 0.6 Mg Each PO 0.6 mg DAILY [facility] Administration Duloxetine HCl 60 mg 07/30/20 09:00 07/31/20 08:06 Duloxetine Hcl 60 Mg Capsule.Dr PO 60 mg DAILY [facility] Administration Ezetimibe 10 mg 07/30/20 09:00 07/31/20 08:05 Ezetimibe 10 Mg Tab PO 10 mg DAILY [facility] Administration Fluticasone Propionate 2 spray 07/29/20 20:19 07/31/20 08:05 Fluticasone 50mcg/[place] Nasal 16gm EA NOSTRIL 2 spray DAILY PRN Administration Allergy Symptoms Gabapentin 300 mg 07/29/20 21:00 07/31/20 08:05 Gabapentin 300 Mg Cap PO 300 mg BID [facility] Administration Hydroxyzine HCl 10 mg 07/30/20 09:00 07/31/20 08:06 Hydroxyzine Hcl 10 Mg Tab PO 10 mg DAILY [facility] Administration Sodium Chloride 1,000 mls @ 50 mls/hr 07/30/20 07:45 07/31/20 06:08 Saline 0.9% IV 50 mls/hr .Q20H [facility] Administration Cefepime HCl 2 gm/ Sodium 100 mls @ 25 mls/hr 07/31/20 09:00 07/31/20 09:28 Chloride IVPB 25 mls/hr Q12HR [facility] Administration Vancomycin HCl 1,500 mg/ 250 mls @ 125 mls/hr 07/31/20 14:00 Sodium Chloride IVPB Q12H [facility] Insulin Aspart 0 unit 07/29/20 21:00 07/31/20 08:12 Insulin Aspart (Novolog) 100 Unit/Ml Vial SQ 3 unit ACHS [facility] Administration Protocol Insulin Detemir 35 unit 07/29/20 21:30 07/30/20 21:01 Insulin Detemir (Levemir) 100 Unit/Ml Syr SQ 35 unit HS [facility] Administration Levothyroxine Sodium 125 mcg 07/30/20 06:30 07/31/20 06:07 Levothyroxine 125 Mcg Tab PO 125 mcg 0630 [facility] Administration Lisinopril 10 mg 07/30/20 09:00 07/31/20 08:07 Lisinopril 10 Mg Tab PO 10 mg DAILY [facility] Administration Loratadine 10 mg 07/30/20 09:00 07/31/20 08:06 Loratadine 10 Mg Tab PO 10 mg DAILY [facility] Administration Magnesium Oxide 400 mg 07/29/20 21:00 07/31/20 08:06 Magnesium Oxide 400 Mg Tab PO 400 mg BID [facility] Administration Morphine Sulfate 4 mg 07/29/20 14:41 Morphine Sulfate 4 Mg/Ml Syringe IV Q4HR PRN Severe Pain Multivitamins 1 each 07/30/20 09:00 07/31/20 08:05 Multivitamins, Thera 1 Each Tab PO 1 each DAILY [facility] Administration Naloxone HCl 0.2 mg 07/29/20 14:41 Naloxone 0.4 Mg/Ml 1 Ml Vial IV Q2M PRN Opioid Reversal Nitroglycerin 0.4 mg 07/29/20 20:19 Nitroglycerin Sl Tabs 0.4 Mg Tab SUBLINGUAL Q5M PRN Chest Pain Pantoprazole Sodium 40 mg 07/30/20 09:00 07/31/20 08:04 Pantoprazole 40 Mg/10 Ml Vial IV 40 mg DAILY [facility] Administration Ropinirole HCl 4 mg 07/29/20 22:00 07/31/20 08:06 Ropinirole Hcl 4 Mg Tablet PO 4 mg TID [facility] Administration Sodium Chloride 10 ml 07/30/20 21:00 07/31/20 08:06 Sodium Chloride 0.9% Flush 10 Ml Syringe IV 10 ml Q12HR [facility] Administration Ticagrelor 90 mg 07/31/20 09:45 07/31/20 11:31 Ticagrelor 90 Mg Tab PO 90 mg BID [facility] Administration Intake and Output 07/30/20 07/31/20 07/31/20 22:59 06:59 14:59 Intake Total 400 550 Balance 400 550 Intake: Intake, IV Titration 400 550 Amount Sodium Chloride 0.9% 1, 400 300 000 ml @ 50 mls/hr IV . Q20H [facility] Rx#:[id number] Vancomycin 1,500 mg In 250 Sodium Chloride 0.9% 250 ml @ 125 mls/hr IVPB Q16H [facility] Rx#:[id number] Other: Voiding Method Toilet Weight 94 kg 07/30/20 04:56 07/31/20 04:58
--- NOTE | 2020-07-31 13:28 | P.PN ---
Subjective Progress Note Date: 07/31/20 Patient is a pleasant 69-year-old female came in for infection and discomfort in the left chest wall patient was treated for with multiple course of antibiotics for possible cellulitis in that area without any improvement because of which the patient was subsequently admitted here and patient underwent pacemaker removal. Patient is presently on clindamycin patient has been on Keflex as an outpatient. The other cultures including blood cultures were positive in the past. Infectious disease was consulted. Patient has been on antibiotics in spite of Keflex patient redness and swelling continued to get worse. Unfortunately I was unable to examine the site where she had infection as its postsurgically packed and the pacemaker was already removed. 07/31/2020 Patient is seen and evaluated and follow-up with no acute overnight issues. Chest wall covered with a dressing that is dry and intact. Patient continued on cefepime and vancomycin while awaiting for wound cultures of the chest site to finalized to determine discharge antibiotics. Will likely require IV antibiotic treatment in the outpatient setting. Cardiology also following and resuming her Brilinta and once patient is done with antibiotic therapy and infection has improved will follow with cardiology in the outpatient setting to discuss a new pacemaker placement. Review of systems: Constitutional: No reports of fatigue, fever, or chills Cardiovascular: No reports of chest pain or palpitations, mild discomfort at the left chest wall infection site Respiratory: No reports of shortness of breath or cough GI: No reports of nausea, vomiting, or diarrhea : No reports of dysuria or retention Neurovascular: No reports of weakness or numbness All medications have been reviewed Objective - Vital Signs Vital signs: Vital Signs Temp 97.9 F 07/31/20 04:23 Pulse 78 07/31/20 04:23 Resp 16 07/31/20 04:23 BP 100/59 07/31/20 04:23 Pulse Ox 97 07/31/20 04:23 Intake & Output 07/30/20 07/31/20 07/31/20 18:59 06:59 18:59 Intake Total 756 550 Balance 756 550 Weight 94 kg Intake: IV 356 Intake, IV Titration 400 550 Amount Sodium Chloride 0.9% 1, 400 300 000 ml @ 50 mls/hr IV . Q20H [facility] Rx#:[id number] Vancomycin 1,500 mg In 250 Sodium Chloride 0.9% 250 ml @ 125 mls/hr IVPB Q16H [facility] Rx#:[id number] Other: Voiding Method Toilet Toilet - Exam GENERAL: The patient is alert and oriented x3, not in any acute distress. Well developed, well nourished. HEENT: Pupils are round and equally reacting to light. EOMI. No scleral icterus. No conjunctival pallor. Normocephalic, atraumatic. No pharyngeal erythema. No thyromegaly. CARDIOVASCULAR: S1 and S2 present. No murmurs, rubs, or gallops. PULMONARY: Chest is clear to auscultation, no wheezing or crackles. ABDOMEN: Soft, nontender, nondistended, normoactive bowel sounds. No palpable organomegaly. MUSCULOSKELETAL: No joint swelling or deformity. EXTREMITIES: No cyanosis, clubbing, or pedal edema. NEUROLOGICAL: Gross neurological examination did not reveal any focal deficits. SKIN: No rashes. Left Chest wall surgical site is dry and intact with dressing noted - Labs CBC & Chem 7: 07/30/20 04:56 07/31/20 04:58 Labs: Abnormal Lab Results - Last 24 Hours (Table) 07/30/20 07/30/20 07/30/20 Range/Units 12:04 17:33 20:01 Sodium (137-145) mmol/L Chloride (98-107) mmol/L Glucose (74-99) mg/dL POC Glucose (mg/dL) 157 H 327 H 339 H (75-99) mg/dL Calcium (8.4-10.2) mg/dL 07/31/20 07/31/20 Range/Units 04:58 07:09 Sodium 135 L (137-145) mmol/L Chloride 108 H (98-107) mmol/L Glucose 188 H (74-99) mg/dL POC Glucose (mg/dL) 208 H (75-99) mg/dL Calcium 8.3 L (8.4-10.2) mg/dL Microbiology - Last 24 Hours (Table) 07/30/20 09:26 Gram Stain - Preliminary Chest Tissue Culture - Preliminary 07/30/20 09:26 Gram Stain - Preliminary Chest Tissue Culture - Preliminary 07/30/20 09:26 Gram Stain - Preliminary Chest Tissue Culture - Preliminary 07/30/20 09:26 Gram Stain - Preliminary Chest Wound Culture - Preliminary 07/30/20 09:26 Gram Stain - Preliminary Chest Wound Culture - Preliminary 07/30/20 09:26 Anaerobic Culture - Preliminary Chest 07/30/20 09:26 Anaerobic Culture - Preliminary Chest 07/30/20 09:26 Anaerobic Culture - Preliminary Chest 07/29/20 13:52 Blood Culture - Preliminary Blood No Growth after 24 hours 07/29/20 13:52 Blood Culture - Preliminary Blood No Growth after 24 hours Assessment and Plan Assessment: -Cellulitis, subcutaneous tissue infection at the site of pacemaker: Infectious disease following an patient is maintained on cefepime and vancomycin while awaiting for cultures to finalize, device was removed by Dr. 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 Follow-up outpatient for possible replacement on the right once infection has cleared. -Type 2 diabetes mellitus -Gastroesophageal reflux disease -Hyperlipidemia -Hypertension -Sleep apnea -Hypothyroidism -Coronary artery disease with stents in the past Plan: Continue current IV antibiotics in the form of cefepime and vancomycin while awaiting for cultures to finalize. Infectious disease and cardiology following and will likely require a midline or PICC line for outpatient IV antibiotic therapy. Case management following and working on discharge planning needs and possible Homecare for infusions in the home. Will await culture finalization.
[2020-07-31 17:12] LABS: Glucose,Whole Blood 181 mg/dL (75-99)
[2020-07-31 20:28] LABS: Glucose,Whole Blood 88 mg/dL (75-99)
[2020-07-31] MEDS: ASPIRIN 81 MG PO SCH (20:45)
[2020-07-31] MEDS: INSULIN DETEMIR (LEVEMIR) 100 UNIT/ML SYR SQ SCH (20:45)
[2020-07-31] MEDS: ATORVASTATIN 80 MG TAB PO SCH (20:46)
[2020-08-01] MEDS: VANCOMYCIN 1,500 MG in SODIUM CHLORIDE 0.9% 250 ML IVPB SCH ×2 (01:48→13:20)
[2020-08-01] MEDS: HYDROcodone/APAP 5-325MG 1 EACH TAB PO PRN (03:29)
[2020-08-01] MEDS: LEVOTHYROXINE 125 MCG TAB PO SCH (05:34)
[2020-08-01 06:22] LABS: African American GFR (CKD) >90 (>60 ml/min/1.73 sqM); Anion Gap 6 mmol/L; Blood Urea Nitrogen 15 mg/dL (7-17); Calcium 8.7 mg/dL (8.4-10.2); Carbon Dioxide 22 mmol/L (22-30); Chloride 111 mmol/L (98-107); Glucose 109 mg/dL (74-99); Non-African American GFR(CKD) 89 (>60 ml/min/1.73 sqM); Potassium 4.5 mmol/L (3.5-5.1); Sodium 139 mmol/L (137-145)
[2020-08-01 07:14] LABS: Glucose,Whole Blood 205 mg/dL (75-99)
[2020-08-01] MEDS: PANTOPRAZOLE 40 MG/10 ML VIAL IV SCH (08:32)
[2020-08-01] MEDS: CEFEPIME 2 GM in SODIUM CHLORIDE 0.9% 100 ML IVPB SCH ×2 (08:32→21:34)
[2020-08-01] MEDS: GABAPENTIN 300 MG CAP PO SCH ×2 (08:33→21:34)
[2020-08-01] MEDS: TICAGRELOR 90 MG TAB PO SCH ×2 (08:33→21:34)
[2020-08-01] MEDS: hydrOXYzine HCL 10 MG TAB PO SCH (08:33)
[2020-08-01] MEDS: LORATADINE 10 MG TAB PO SCH (08:33)
[2020-08-01] MEDS: HYDROcodone/APAP 10-325MG 1 EACH TAB PO SCH ×2 (08:33→21:34)
[2020-08-01] MEDS: MAGNESIUM OXIDE 400 MG TAB PO SCH ×2 (08:33→21:34)
[2020-08-01] MEDS: ASCORBIC ACID 500 MG TAB PO SCH (08:33)
[2020-08-01] MEDS: EZETIMIBE 10 MG TAB PO SCH (08:33)
[2020-08-01] MEDS: MULTIVITAMINS, THERA 1 EACH TAB PO SCH (08:33)
[2020-08-01] MEDS: rOPINIRole HCL 4 MG TABLET PO SCH ×3 (08:33→21:34)
[2020-08-01] MEDS: COLCHICINE 0.6 MG EACH PO SCH (08:33)
[2020-08-01] MEDS: DULoxetine HCL 60 MG CAPSULE.DR PO SCH (08:33)
[2020-08-01] MEDS: lisinopriL 10 MG TAB PO SCH (08:33)
[2020-08-01] MEDS: INSULIN ASPART (NovoLOG) 100 UNIT/ML VIAL SQ SCH ×7 (08:34→21:35)
--- NOTE | 2020-08-01 11:16 | PN ---
PROGRESS NOTE DATE OF SERVICE: 08/01/2020. REASON FOR FOLLOWUP: Left chest wall pacemaker site infection and cellulitis. INTERVAL HISTORY: The patient is currently afebrile. The patient overall pain and discomfort to the left chest wall has decreased, mentioned it hurts only with movement. No shortness of breath or cough. No nausea, no vomiting. No abdominal pain, no diarrhea. PHYSICAL EXAMINATION: Blood pressure 116/69 with pulse of 72, temperature 97.6. She is 100% on room air. General description is an elderly female lying in bed in no distress. RESPIRATORY SYSTEM: Unlabored breathing, clear to auscultation anteriorly. HEART: S1, S2. Regular rate and rhythm. ABDOMEN: Soft, no tenderness. LABS: Hemoglobin was not checked today. BUN of 15, creatinine 0.69. Cultures so far pending. DIAGNOSTIC IMPRESSION AND PLAN: Patient left chest wall/pacemaker site cellulitis status post extraction of the pacemaker and leads with no documented pus. Cultures remain to be negative. Continue with vancomycin, cefepime. Will discharge on antibiotic depending upon the culture report. Continue supportive care. MMODL / IJN: [id number] /
[2020-08-01 12:00] LABS: Glucose,Whole Blood 124 mg/dL (75-99)
--- NOTE | 2020-08-01 12:17 | P.PN ---
Subjective Progress Note Date: 08/01/20 HISTORY OF PRESENT ILLNESS: Patient is s/p pacemaker and lead explantation with Dr. Murphy. Patient reports mild discomfort at surgical site. Blood cultures are negative at 48 hour hugo. Tissue culture is negative at 24 hour hugo. She remains on antibiotics. Dr. German is following. PHYSICAL EXAM: VITAL SIGNS: Reviewed. GENERAL: Well-developed in no acute distress. NECK: Supple. No JVD or thyromegaly LUNGS: Respirations even and unlabored. Lungs essentially clear to auscultation bilaterally. HEART: Regular rate and rhythm. S1 and S2 heard. Surgical site clean and dry. No drainage noted. EXTREMITIES: Normal range of motion. No clubbing or cyanosis. Peripheral pulses intact. No lower extremity edema ASSESSMENT: Cellulitis and infection at site of pacemaker with explantation of device Coronary artery disease with previous PCI Hypertension Hyperlipidemia Diabetes mellitus PLAN: Continue current cardiac medications Continue antibiotics per infectious disease Patient may be discharged home when cleared by ID She is to follow up with Dr. Murphy for possible implantation of device on right side after she completes her course of antibiotics Further recommendations pending patient course Nurse practitioner note has been reviewed by physician. Signing provider agrees with the documented findings, assessment, and plan of care. Objective - Vital Signs Vital signs: Vital Signs Temp 97.6 F 08/01/20 04:18 Pulse 72 08/01/20 04:18 Resp 14 08/01/20 04:18 BP 116/69 08/01/20 04:18 Pulse Ox 100 08/01/20 04:18 Intake & Output 07/31/20 08/01/20 08/01/20 18:59 06:59 18:59 Intake Total 1350 350 Balance 1350 350 Weight 94 kg Intake: Intake, IV Titration 1350 350 Amount Cefepime 2 gm In Sodium 100 100 Chloride 0.9% 100 ml @ 25 mls/hr IVPB Q12HR [facility] Rx #:[id number] Sodium Chloride 0.9% 1, 1000 000 ml @ 50 mls/hr IV . Q20H [facility] Rx#:[id number] Vancomycin 1,500 mg In 250 Sodium Chloride 0.9% 250 ml @ 125 mls/hr IVPB Q12H [facility] Rx#:[id number] Vancomycin 1,500 mg In 250 Sodium Chloride 0.9% 250 ml @ 125 mls/hr IVPB Q16H [facility] Rx#:[id number] Other: Voiding Method Toilet # Voids 4 2 - Labs CBC & Chem 7: 07/30/20 04:56 08/01/20 05:20 Labs: Abnormal Lab Results - Last 24 Hours (Table) 07/31/20 07/31/20 08/01/20 Range/Units 11:24 17:08 05:20 Chloride 111 H (98-107) mmol/L Glucose 109 H (74-99) mg/dL POC Glucose (mg/dL) 200 H 181 H (75-99) mg/dL 08/01/20 Range/Units 07:13 Chloride (98-107) mmol/L Glucose (74-99) mg/dL POC Glucose (mg/dL) 205 H (75-99) mg/dL Microbiology - Last 24 Hours (Table) 07/29/20 13:52 Blood Culture - Preliminary Blood No Growth after 48 hours 07/29/20 13:52 Blood Culture - Preliminary Blood No Growth after 48 hours 07/30/20 09:26 Gram Stain - Preliminary Chest Wound Culture - Preliminary 07/30/20 09:26 Gram Stain - Preliminary Chest Tissue Culture - Preliminary 07/30/20 09:26 Gram Stain - Preliminary Chest Tissue Culture - Preliminary 07/30/20 09:26 Gram Stain - Preliminary Chest Tissue Culture - Preliminary 07/30/20 09:26 Gram Stain - Preliminary Chest Wound Culture - Preliminary
[2020-08-01] MEDS ORDERED: VANCOMYCIN TROUGH DUE 1 EACH MISC MISCELLANE ONE (13:00)
--- NOTE | 2020-08-01 15:22 | P.PN ---
Subjective Progress Note Date: 08/01/20 Patient is a pleasant 69-year-old female came in for infection and discomfort in the left chest wall patient was treated for with multiple course of antibiotics for possible cellulitis in that area without any improvement because of which the patient was subsequently admitted here and patient underwent pacemaker removal. Patient is presently on clindamycin patient has been on Keflex as an outpatient. The other cultures including blood cultures were positive in the past. Infectious disease was consulted. Patient has been on antibiotics in spite of Keflex patient redness and swelling continued to get worse. Unfortunately I was unable to examine the site where she had infection as its postsurgically packed and the pacemaker was already removed. 07/31/2020 Patient is seen and evaluated and follow-up with no acute overnight issues. Chest wall covered with a dressing that is dry and intact. Patient continued on cefepime and vancomycin while awaiting for wound cultures of the chest site to finalized to determine discharge antibiotics. Will likely require IV antibiotic treatment in the outpatient setting. Cardiology also following and resuming her Brilinta and once patient is done with antibiotic therapy and infection has improved will follow with cardiology in the outpatient setting to discuss a new pacemaker placement. 08/01/2020 Patient is seen this morning with no acute overnight issues. Patient continues to have some tenderness at the chest wall site although states she feels better. Awaiting for culture finalization to determine discharge antibiotics. Infectious disease is following. Patient is maintained on cefepime and vancomycin and will continue. One of the preliminary cultures showing coagulase-negative staph and will await for finalization. BMP within normal limits. Review of systems: Constitutional: No reports of fatigue, fever, or chills Cardiovascular: No reports of chest pain or palpitations, mild discomfort at the left chest wall infection site Respiratory: No reports of shortness of breath or cough GI: No reports of nausea, vomiting, or diarrhea : No reports of dysuria or retention Neurovascular: No reports of weakness or numbness All medications have been reviewed Objective - Vital Signs Vital signs: Vital Signs Temp 98.0 F 08/01/20 12:45 Pulse 69 08/01/20 12:45 Resp 16 08/01/20 12:45 BP 106/69 08/01/20 12:45 Pulse Ox 99 08/01/20 12:45 Intake & Output 07/31/20 08/01/20 08/01/20 18:59 06:59 18:59 Intake Total 1350 350 Balance 1350 350 Weight 94 kg Intake: Intake, IV Titration 1350 350 Amount Cefepime 2 gm In Sodium 100 100 Chloride 0.9% 100 ml @ 25 mls/hr IVPB Q12HR [facility] Rx #:[id number] Sodium Chloride 0.9% 1, 1000 000 ml @ 50 mls/hr IV . Q20H [facility] Rx#:[id number] Vancomycin 1,500 mg In 250 Sodium Chloride 0.9% 250 ml @ 125 mls/hr IVPB Q12H [facility] Rx#:[id number] Vancomycin 1,500 mg In 250 Sodium Chloride 0.9% 250 ml @ 125 mls/hr IVPB Q16H [facility] Rx#:[id number] Other: Voiding Method Toilet # Voids 4 2 - Exam GENERAL: The patient is alert and oriented x3, not in any acute distress. Well developed, well nourished. HEENT: Pupils are round and equally reacting to light. EOMI. No scleral icterus. No conjunctival pallor. Normocephalic, atraumatic. No pharyngeal erythema. No thyromegaly. CARDIOVASCULAR: S1 and S2 present. No murmurs, rubs, or gallops. PULMONARY: Chest is clear to auscultation, no wheezing or crackles. ABDOMEN: Soft, nontender, nondistended, normoactive bowel sounds. No palpable organomegaly. MUSCULOSKELETAL: No joint swelling or deformity. EXTREMITIES: No cyanosis, clubbing, or pedal edema. NEUROLOGICAL: Gross neurological examination did not reveal any focal deficits. SKIN: No rashes. Left Chest wall surgical site is dry and intact with dressing noted - Labs CBC & Chem 7: 07/30/20 04:56 08/01/20 05:20 Labs: Abnormal Lab Results - Last 24 Hours (Table) 07/31/20 08/01/20 08/01/20 Range/Units 17:08 05:20 07:13 Chloride 111 H (98-107) mmol/L Glucose 109 H (74-99) mg/dL POC Glucose (mg/dL) 181 H 205 H (75-99) mg/dL 08/01/20 Range/Units 11:58 Chloride (98-107) mmol/L Glucose (74-99) mg/dL POC Glucose (mg/dL) 124 H (75-99) mg/dL Microbiology - Last 24 Hours (Table) 07/30/20 09:26 Gram Stain - Final Chest Wound Culture - Final 07/30/20 09:26 Gram Stain - Preliminary Chest Tissue Culture - Preliminary 07/30/20 09:26 Gram Stain - Preliminary Chest Tissue Culture - Preliminary 07/30/20 09:26 Gram Stain - Preliminary Chest Tissue Culture - Preliminary Coagulase Negative Staph 07/30/20 09:26 Gram Stain - Final Chest Wound Culture - Final 07/29/20 13:52 Blood Culture - Preliminary Blood No Growth after 48 hours 07/29/20 13:52 Blood Culture - Preliminary Blood No Growth after 48 hours Assessment and Plan Assessment: -Cellulitis, subcutaneous tissue infection at the site of pacemaker: Infectious disease following an patient is maintained on cefepime and vancomycin while awaiting for cultures to finalize, device was removed by Dr. 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 Follow-up outpatient for possible replacement on the right once infection has cleared. -Type 2 diabetes mellitus -Gastroesophageal reflux disease -Hyperlipidemia -Hypertension -Sleep apnea -Hypothyroidism -Coronary artery disease with stents in the past Plan: Continue current IV antibiotics in the form of cefepime and vancomycin while awaiting for cultures to finalize. Infectious disease and cardiology following and will likely require a midline or PICC line for outpatient IV antibiotic therapy. Case management following and working on discharge planning needs and possible Homecare for infusions in the home. Will await culture finalization. Anticipate discharge in 24 hours.
[2020-08-01 17:31] LABS: Glucose,Whole Blood 67 mg/dL (75-99)
[2020-08-01 17:49] LABS: Glucose,Whole Blood 69 mg/dL (75-99)
[2020-08-01 18:08] LABS: Glucose,Whole Blood 117 mg/dL (75-99)
[2020-08-01 21:29] LABS: Glucose,Whole Blood 165 mg/dL (75-99)
[2020-08-01] MEDS: ASPIRIN 81 MG PO SCH (21:34)
[2020-08-01] MEDS: ATORVASTATIN 80 MG TAB PO SCH (21:34)
[2020-08-01] MEDS: INSULIN DETEMIR (LEVEMIR) 100 UNIT/ML SYR SQ SCH (21:35)
[2020-08-02] MEDS: VANCOMYCIN 1,500 MG in SODIUM CHLORIDE 0.9% 250 ML IVPB SCH (02:00)
[2020-08-02 05:18] VITALS: PULSE 70
[2020-08-02] MEDS: LEVOTHYROXINE 125 MCG TAB PO SCH (06:03)
[2020-08-02 07:16] LABS: Anisocytosis Slight; Basophils % (A) 0 %; Eosinophils % (A) 0 %; HCT 34.3 % (34.0-46.0); HGB 11.2 gm/dL (11.4-16.0); Lymphocytes # (A) 1.3 k/uL (1.0-4.8); Lymphocytes % (A) 37 %; MCH 27.1 pg (25.0-35.0); MCHC 32.6 g/dL (31.0-37.0); MCV 83.3 fL (80.0-100.0); Mean Platelet Volume 8.7; Microcytosis Slight; Monocytes # (A) 0.3 k/uL (0-1.0); Monocytes % (A) 7 %; Neutrophils # (A) 1.8 k/uL (1.3-7.7); Neutrophils % (A) 52 %; Platelet Count 117 k/uL (150-450); RBC 4.12 m/uL (3.80-5.40); RDW 18.6 % (11.5-15.5); WBC 3.5 k/uL (3.8-10.6)
[2020-08-02 07:28] LABS: Glucose,Whole Blood 162 mg/dL (75-99)
[2020-08-02] MEDS: MAGNESIUM OXIDE 400 MG TAB PO SCH (07:59)
[2020-08-02] MEDS: TICAGRELOR 90 MG TAB PO SCH (07:59)
[2020-08-02] MEDS: lisinopriL 10 MG TAB PO SCH (07:59)
[2020-08-02] MEDS: rOPINIRole HCL 4 MG TABLET PO SCH (08:00)
[2020-08-02] MEDS: INSULIN ASPART (NovoLOG) 100 UNIT/ML VIAL SQ SCH ×4 (08:00→12:54)
[2020-08-02] MEDS: COLCHICINE 0.6 MG EACH PO SCH (08:00)
[2020-08-02] MEDS: DULoxetine HCL 60 MG CAPSULE.DR PO SCH (08:00)
[2020-08-02] MEDS: LORATADINE 10 MG TAB PO SCH (08:00)
[2020-08-02] MEDS: GABAPENTIN 300 MG CAP PO SCH (08:00)
[2020-08-02] MEDS: EZETIMIBE 10 MG TAB PO SCH (08:00)
[2020-08-02] MEDS: hydrOXYzine HCL 10 MG TAB PO SCH (08:00)
[2020-08-02] MEDS: PANTOPRAZOLE 40 MG/10 ML VIAL IV SCH (08:00)
[2020-08-02] MEDS: ASCORBIC ACID 500 MG TAB PO SCH (08:00)
[2020-08-02] MEDS: HYDROcodone/APAP 10-325MG 1 EACH TAB PO SCH (08:00)
[2020-08-02] MEDS: MULTIVITAMINS, THERA 1 EACH TAB PO SCH (08:01)
[2020-08-02] MEDS: CEFEPIME 2 GM in SODIUM CHLORIDE 0.9% 100 ML IVPB SCH (08:01)
[2020-08-02] MEDS ORDERED: SENNOSIDES 8.6 MG TAB PO SCH (10:15)
--- NOTE | 2020-08-02 11:14 | P.PN ---
Subjective Progress Note Date: 08/02/20 HISTORY OF PRESENT ILLNESS: 08/01/2020 Patient is s/p pacemaker and lead explantation with Dr. Murphy. Patient reports mild discomfort at surgical site. Blood cultures are negative at 48 hour hugo. Tissue culture is negative at 24 hour hugo. She remains on antibiotics. Dr. German is following. 08/02/2020 Patient examined this morning at the bedside. Patient denies chest pain or pressure. Denies shortness of breath. Denies pain or discomfort at surgical site. Infectious disease is following. Heart rate in the 70s. Blood pressure stable. PHYSICAL EXAM: VITAL SIGNS: Reviewed. GENERAL: Well-developed in no acute distress. NECK: Supple. No JVD or thyromegaly LUNGS: Respirations even and unlabored. Lungs essentially clear to auscultation bilaterally. HEART: Regular rate and rhythm. S1 and S2 heard. Surgical site clean and dry. No drainage noted. EXTREMITIES: Normal range of motion. No clubbing or cyanosis. Peripheral pulses intact. No lower extremity edema ASSESSMENT: Cellulitis and infection at site of pacemaker with explantation of device Coronary artery disease with previous PCI Hypertension Hyperlipidemia Diabetes mellitus PLAN: Continue current cardiac medications Continue antibiotics per infectious disease Patient may be discharged home when cleared by ID She is to follow up with Dr. Murphy for possible implantation of device on right side after she completes her course of antibiotics We will follow on an as-needed basis. Please call with questions or concerns. Nurse practitioner note has been reviewed by physician. Signing provider agrees with the documented findings, assessment, and plan of care. Objective - Vital Signs Vital signs: Vital Signs Temp 97.6 F 08/02/20 05:00 Pulse 70 08/02/20 05:00 Resp 20 08/02/20 05:00 BP 121/74 08/02/20 05:00 Pulse Ox 99 08/02/20 05:00 Intake & Output 08/01/20 08/02/20 08/02/20 18:59 06:59 18:59 Intake Total 450 Output Total 1 Balance 449 Weight 92 kg Intake: Intake, IV Titration 350 Amount Cefepime 2 gm In Sodium 100 Chloride 0.9% 100 ml @ 25 mls/hr IVPB Q12HR [facility] Rx #:[id number] Vancomycin 1,500 mg In 250 Sodium Chloride 0.9% 250 ml @ 125 mls/hr IVPB Q12H [facility] Rx#:[id number] Oral 100 Output: Urine 1 Other: Voiding Method Toilet # Voids 3 1 - Labs CBC & Chem 7: 08/02/20 06:10 08/01/20 05:20 Labs: Abnormal Lab Results - Last 24 Hours (Table) 08/01/20 08/01/20 08/01/20 Range/Units 11:58 17:29 17:48 WBC (3.8-10.6) k/uL Hgb (11.4-16.0) gm/dL RDW (11.5-15.5) % Plt Count (150-450) k/uL POC Glucose (mg/dL) 124 H 67 L 69 L (75-99) mg/dL C-Reactive Protein (0.0-0.8) mg/dL 08/01/20 08/01/20 08/02/20 Range/Units 18:06 20:56 06:10 WBC 3.5 L (3.8-10.6) k/uL Hgb 11.2 L (11.4-16.0) gm/dL RDW 18.6 H (11.5-15.5) % Plt Count 117 L (150-450) k/uL POC Glucose (mg/dL) 117 H 165 H (75-99) mg/dL C-Reactive Protein (0.0-0.8) mg/dL 08/02/20 08/02/20 Range/Units 06:10 07:09 WBC (3.8-10.6) k/uL Hgb (11.4-16.0) gm/dL RDW (11.5-15.5) % Plt Count (150-450) k/uL POC Glucose (mg/dL) 162 H (75-99) mg/dL C-Reactive Protein 1.1 H (0.0-0.8) mg/dL Microbiology - Last 24 Hours (Table) 07/30/20 09:26 Gram Stain - Preliminary Chest Tissue Culture - Preliminary 07/30/20 09:26 Gram Stain - Preliminary Chest Tissue Culture - Preliminary 07/30/20 09:26 Gram Stain - Final Chest Tissue Culture - Final Staphylococcus epidermidis 07/29/20 13:52 Blood Culture - Preliminary Blood No Growth after 72 hours 07/29/20 13:52 Blood Culture - Preliminary Blood No Growth after 72 hours 07/30/20 09:26 Anaerobic Culture - Preliminary Chest 07/30/20 09:26 Gram Stain - Final Chest Wound Culture - Final 07/30/20 09:26 Gram Stain - Final Chest Wound Culture - Final
[2020-08-02 11:19] LABS: Erythrocyte Sedimentation Rate 35 mm/hr (0-20)
[2020-08-02 11:59] LABS: Glucose,Whole Blood 107 mg/dL (75-99)
[2020-08-02 12:21] VITALS: BP 126/72; RESP 18; TEMP 98
--- NOTE | 2020-08-02 12:53 | PN ---
PROGRESS NOTE DATE OF SERVICE: 08/02/2020 REASON FOR FOLLOWUP: Left chest wall/pacemaker site cellulitis. INTERVAL HISTORY: The patient is currently afebrile. Patient overall pain and discomfort to the left chest wall has decreased. No shortness of breath. No nausea, no vomiting. No abdominal pain or diarrhea. PHYSICAL EXAMINATION: Blood pressure 121/74 with a pulse of 70, temperature 97.6. She is 99% on room air. General description is an elderly female up in the chair in no distress. RESPIRATORY SYSTEM: Unlabored breathing, clear to auscultation anteriorly. HEART: S1, S2. Regular rate and rhythm. ABDOMEN: Soft, no tenderness. LABS: Chest wall culture showing coagulase-negative Staph. DIAGNOSTIC IMPRESSION AND PLAN: Patient with left chest wall cellulitis, site of the pacemaker, which has been discontinued along with leads. Blood culture has been negative. She will get a PICC line. Continue vancomycin for 2 weeks and close outpatient followup. Cefepime has been discontinued. Prescription was provided to the child welfare caseworker. MMHEAVENLY / PEGGYN: [id number] /
[2020-08-02] MEDS ORDERED: LIDOCAINE 1% INJ 10MG/ML (20 ML MDV) SQ ONE (14:08)
--- NOTE | 2020-08-02 17:01 | IR ---
EXAMINATION TYPE: IR cvc insert >=5 years DATE OF EXAM: 08/02/2020 COMPARISON: NONE CLINICAL HISTORY: Need for long-term antibiotics COMPANY MARKER: Dr. Kelley Tierney PROCEDURE: The procedure was discussed with the patient. The risks, complications, benefits, and alternatives we re discussed and any questions were answered. Informed consent was obtained. The patient was placed supine. Maximal barrier technique utilized. After informed consent, the skin o verlying the right brachial vein was localized with ultrasound and noted to be compressible and paten t. An ultrasound image was obtained and submitted on the patient's chart. Sterile technique utilized with the ultrasound machine. The skin overlying was prepped and draped and Lidocaine used for local anesthesia. Access was gained to the vein under ultrasound guidance with a 21 gauge needle and a 0.01 8 inch wire was advanced. A skin sahara was made with a scalpel. Access site was dilated with Peel-Away sheath. 4 FR single lumen catheter tailored to the appropriate length of 32 cm and advanced such feliberto t the distal tip is at the distal SVC. Spot image was obtained verifying PICC placement. Catheter was fixed to the skin and a sterile dressing was placed following hemostasis. Catheter was aspirated and flushed with saline. Patient was discharged from the radiology department in stable condition withou t immediate complication. Fluoro time: 0.2 minutes Fluoroscopic images obtained: 4 IMPRESSION: Status post ultrasound-guided and fluoroscopic-guided right PICC placement, ready for use.
--- NOTE | 2020-08-03 08:38 | P.DS ---
Providers Date of admission: 07/29/20 14:44 Expected date of discharge: 08/02/20 Attending physician: Cortez Samano MD Consults: 07/29/20 14:43 Consult Physician Urgent Consulting Provider: Sai Murphy Consult Reason/Comments: Chest wall cellulitis versus pacemaker infection. 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 Follow-up outpatient for possible replacement on the right once infection has cleared. -Type 2 diabetes mellitus -Gastroesophageal reflux disease -Hyperlipidemia -Hypertension -Sleep apnea -Hypothyroidism -Coronary artery disease with stents in the past Discharge disposition Patient is being discharged in a stable condition with guarded prognosis to home. Patient will follow-up with Dr. Vance upon discharge. Patient will also follow-up with the wound center and Dr. German in the outpatient setting and will continue [facility] and [facility] infusion continued IV antibiotic therapy in the form of daptomycin. She will follow-up with cardiology outpatient once infection is cleared for possible new pacemaker placement. Total time taken is greater than 35 minutes. Hospital course Patient is a pleasant 69-year-old female came in for infection and discomfort in the left chest wall patient was treated for with multiple course of antibiotics for possible cellulitis in that area without any improvement because of which the patient was subsequently admitted here and patient underwent pacemaker removal. Patient is presently on clindamycin patient has been on Keflex as an outpatient. The other cultures including blood cultures were positive in the past. Infectious disease was consulted. Patient has been on antibiotics in spite of Keflex patient redness and swelling continued to get worse. Unfortunately I was unable to examine the site where she had infection as its postsurgically packed and the pacemaker was already removed. 07/31/2020 Patient is seen and evaluated and follow-up with no acute overnight issues. Chest wall covered with a dressing that is dry and intact. Patient continued on cefepime and vancomycin while awaiting for wound cultures of the chest site to finalized to determine discharge antibiotics. Will likely require IV antibiotic treatment in the outpatient setting. Cardiology also following and resuming her Brilinta and once patient is done with antibiotic therapy and infection has improved will follow with cardiology in the outpatient setting to discuss a new pacemaker placement. 08/01/2020 Patient is seen this morning with no acute overnight issues. Patient continues to have some tenderness at the chest wall site although states she feels better. Awaiting for culture finalization to determine discharge antibiotics. Infectious disease is following. Patient is maintained on cefepime and vancomycin and will continue. One of the preliminary cultures showing coagulase-negative staph and will await for finalization. BMP within normal limits. 08/02/2020 Patient is seen in follow-up this morning states she is feeling well and anticipating going home today. Patient is scheduled to receive a PICC line and will continue with IV antibiotics in the form of daptomycin daily per infectious disease recommendations and will be following up with the wound center along with cardiology in the outpatient setting. Wound cultures finalized showing Staphylococcus epidermidis. Currently no reports of chest pain, shortness of breath, or palpitations. Patient is afebrile. No reports of nausea or vomiting and patient is tolerating diet. Patient will continue with home care in the outpatient setting. On exam vital signs are stable. Cardio S1, S2 are muffled. Respiratory shows diminished breath sounds at the bases with no wheezing or rhonchi noted. Abdomen is soft and nontender. Nervous system shows no focal deficits. Please refer to medication reconciliation sheet for a list of medications. Patient Condition at Discharge: Fair Plan - Discharge Summary New Discharge Prescriptions: New DAPTOmycin [Daptomycin] 400 mg IV DAILY #10 vial Acetaminophen Tab [Tylenol] 650 mg PO Q6HR PRN tab PRN Reason: Mild Pain Continue Aspirin [Adult Low Dose Aspirin EC] 81 mg PO HS Colchicine [Colcrys] 0.6 mg PO DAILY Ticagrelor [Brilinta] 90 mg PO BID Nitroglycerin Sl Tabs [Nitrostat] 0.4 mg SL Q5M PRN PRN Reason: Chest Pain Lidocaine 5% Oint [Xylocaine 5% Oint] 1 applic TOPICAL HS PRN PRN Reason: Breakthrough Pain rOPINIRole HCL [Requip] 4 mg PO TID Multivitamins, Thera [Multivitamin (formulary)] 1 tab PO DAILY sitaGLIPtin PHOS/metFORMIN HCL [Janumet 50-1,000 mg Tablet] 1 tab PO BID Magnesium Oxide [Mag-Ox] 400 mg PO BID Insulin Lispro [humaLOG Kwikpen] 30 unit SQ AC-TID hydrOXYzine HCL [Atarax] 10 mg PO DAILY Fluticasone Nasal [place] [Flonase Nasal [place]] 2 spr EA NOSTRIL DAILY PRN PRN Reason: Allergy Symptoms Ezetimibe [Zetia] 10 mg PO DAILY DULoxetine HCL [Cymbalta] 60 mg PO DAILY Desloratadine [Clarinex] 5 mg PO DAILY Ascorbic Acid [Vitamin C] 500 mg PO DAILY modafiniL [Provigil] 200 mg PO DIRECTED Lisinopril [Zestril] 10 mg PO DAILY Furosemide [Lasix] 20 - 40 mg PO DAILY PRN PRN Reason: Edema HYDROcodone/APAP 10-325MG [[place] 10-325] 1 tab PO BID Gabapentin 300 mg PO BID Metoprolol Tartrate [Lopressor] 25 mg PO BID Levothyroxine Sodium [Levoxyl] 125 mcg PO DAILY Insulin Detemir [Levemir Flextouch] 35 units SQ HS Discharge Medication List Aspirin [Adult Low Dose Aspirin EC] 81 mg PO HS 08/11/17 [History] Colchicine [Colcrys] 0.6 mg PO DAILY 08/11/17 [History] Lidocaine 5% Oint [Xylocaine 5% Oint] 1 applic TOPICAL HS PRN 08/11/17 [History] Nitroglycerin Sl Tabs [Nitrostat] 0.4 mg SL Q5M PRN 08/11/17 [History] Ticagrelor [Brilinta] 90 mg PO BID 08/11/17 [History] Ascorbic Acid [Vitamin C] 500 mg PO DAILY 12/27/19 [History] DULoxetine HCL [Cymbalta] 60 mg PO DAILY 12/27/19 [History] Desloratadine [Clarinex] 5 mg PO DAILY 12/27/19 [History] Ezetimibe [Zetia] 10 mg PO DAILY 12/27/19 [History] Fluticasone Nasal [place] [Flonase Nasal [place]] 2 spr EA NOSTRIL DAILY PRN 12/27/19 [History] Insulin Lispro [humaLOG Kwikpen] 30 unit SQ AC-TID 12/27/19 [History] Magnesium Oxide [Mag-Ox] 400 mg PO BID 12/27/19 [History] Multivitamins, Thera [Multivitamin (formulary)] 1 tab PO DAILY 12/27/19 [History] hydrOXYzine HCL [Atarax] 10 mg PO DAILY 12/27/19 [History] modafiniL [Provigil] 200 mg PO DIRECTED 12/27/19 [History] rOPINIRole HCL [Requip] 4 mg PO TID 12/27/19 [History] sitaGLIPtin PHOS/metFORMIN HCL [Janumet 50-1,000 mg Tablet] 1 tab PO BID 12/27/19 [History] Furosemide [Lasix] 20 - 40 mg PO DAILY PRN 02/07/20 [History] Lisinopril [Zestril] 10 mg PO DAILY 02/07/20 [History] Gabapentin 300 mg PO BID 07/29/20 [History] HYDROcodone/APAP 10-325MG [[place] 10-325] 1 tab PO BID 07/29/20 [History] Insulin Detemir [Levemir Flextouch] 35 units SQ HS 07/29/20 [History] Levothyroxine Sodium [Levoxyl] 125 mcg PO DAILY 07/29/20 [History] Metoprolol Tartrate [Lopressor] 25 mg PO BID 07/29/20 [History] Acetaminophen Tab [Tylenol] 650 mg PO Q6HR PRN tab 08/02/20 [Rx] DAPTOmycin [Daptomycin] 400 mg IV DAILY #10 vial 08/02/20 [Rx] Follow up Appointment(s)/Referral(s): Kimberlyn Ruiz MD [STAFF PHYSICIAN] - 08/09/20 10:00 am [facility], [NON-STAFF] - As Needed [facility],Infusion [NON-STAFF] - As Needed Wound Center,[facility] [NON-STAFF] - 1 Week Medhat Vance DO [Primary Care Provider] - 08/06/20 3:20 pm (patient will be seen in [place] office) Sofía German MD [STAFF PHYSICIAN] - 08/13/20 2:30 pm Patient Instructions/Handouts: Daptomycin (By injection), Cellulitis (DC) Activity/Diet/Wound Care/Special Instructions: No lotion or cream to affected area Activity Limited until follow-up Continue with IV antibiotics per infectious disease Follow-up with wound care center Follow-up with cardiology outpatient Continue heart healthy diet Follow-up with primary care provider upon discharge Pt going to [facility] for her infusion - daptomycin daily for 2 weeks. pt is to show up at [facility] tomorrow at 11:45am for her infusion Discharge Disposition: HOME WITH HOME HEALTH SERVICES
== END 2020-08-02 15:30 | disposition home health service (06) | DRG 261 ==
LOC: EC 12:53 → 5NMEDONC 14:44
PROVIDERS: ADMIT Internal Medicine; ATTEND Internal Medicine
PROC: 0JPT0PZ Removal of Cardiac Rhythm Related Device from Trunk Subcutaneous Tissue and Fascia, Open Approach (ICD-10-PCS; principal; 2020-07-30 09:50)
PROC: 02PA0MZ Removal of Cardiac Lead from Heart, Open Approach (ICD-10-PCS; principal; 2020-07-30 09:50)
PROC: 02HV33Z Insertion of Infusion Device into Superior Vena Cava, Percutaneous Approach (ICD-10-PCS; 2020-08-02)
DX: T82.7XXA Infection and inflammatory reaction due to other cardiac and vascular devices, implants and grafts, initial encounter (principal); L03.313 Cellulitis of chest wall; G91.2 (Idiopathic) normal pressure hydrocephalus; Y83.1 Surgical operation with implant of artificial internal device as the cause of abnormal reaction of the patient, or of later complication, without mention of misadventure at the time of the procedure; M13.0 Polyarthritis, unspecified; E03.9 Hypothyroidism, unspecified; E11.40 Type 2 diabetes mellitus with diabetic neuropathy, unspecified; E78.5 Hyperlipidemia, unspecified; G25.81 Restless legs syndrome; H35.30 Unspecified macular degeneration; G47.33 Obstructive sleep apnea (adult) (pediatric); Z99.89 Dependence on other enabling machines and devices; I25.2 Old myocardial infarction; I11.0 Hypertensive heart disease with heart failure; I25.10 Atherosclerotic heart disease of native coronary artery without angina pectoris; I48.0 Paroxysmal atrial fibrillation; K58.9 Irritable bowel syndrome, unspecified; I50.9 Heart failure, unspecified; K21.9 Gastro-esophageal reflux disease without esophagitis; Z79.02 Long term (current) use of antithrombotics/antiplatelets; Z79.4 Long term (current) use of insulin; Z79.82 Long term (current) use of aspirin; Z20.828 Contact with and (suspected) exposure to other viral communicable diseases; Z79.890 Hormone replacement therapy; Z79.899 Other long term (current) drug therapy; Z82.49 Family history of ischemic heart disease and other diseases of the circulatory system; Z87.442 Personal history of urinary calculi; Z80.42 Family history of malignant neoplasm of prostate; Z88.0 Allergy status to penicillin; Z95.5 Presence of coronary angioplasty implant and graft; Z45.018 Encounter for adjustment and management of other part of cardiac pacemaker; G89.29 Other chronic pain; Z98.51 Tubal ligation status
CPT/HCPCS: 33233; 33235; 36415; 36573; 71046; 80048; 80053; 80202; 83605; 85025; 85610; 85652; 85730; 86140; 87040; 87070; 87075; 87077; 87186; 87205; 87636; 93005; 96374; 99285

== ENCOUNTER 2020-09-10 08:27 | Inpatient (IN) | payer MEDICARE, OTHER ==
[2020-09-07 08:43] VITALS: BMI 28.1
[2020-09-10] MEDS ORDERED: SODIUM CHLORIDE 0.9% 500 ML 500 ML IV ONE ×2 (08:50→17:49)
[2020-09-10] MEDS ORDERED: VANCOMYCIN 1,250 MG in SODIUM CHLORIDE 0.9% 250 ML IVPB ONE (09:00)
[2020-09-10] MEDS: VANCOMYCIN IV PER PHARMACY 1 EACH MISC MISCELLANE PRN ×2 (09:00→09:05)
[2020-09-10 09:11] LABS: Glucose,Whole Blood 91 mg/dL (75-99)
[2020-09-10] MEDS ORDERED: BENZOIN TINCTURE TOPICAL ONE (09:13)
[2020-09-10 09:38] LABS: Anisocytosis Slight; Basophils % (A) 0 %; Eosinophils % (A) 0 %; HCT 37.2 % (34.0-46.0); HGB 12.6 gm/dL (11.4-16.0); Lymphocytes # (A) 1.7 k/uL (1.0-4.8); Lymphocytes % (A) 31 %; MCH 28.7 pg (25.0-35.0); MCHC 33.9 g/dL (31.0-37.0); MCV 84.7 fL (80.0-100.0); Mean Platelet Volume 8.9; Monocytes # (A) 0.4 k/uL (0-1.0); Monocytes % (A) 7 %; Neutrophils # (A) 3.4 k/uL (1.3-7.7); Neutrophils % (A) 60 %; Platelet Count 168 k/uL (150-450); RBC 4.39 m/uL (3.80-5.40); WBC 5.6 k/uL (3.8-10.6)
[2020-09-10 09:43] LABS: African American GFR (CKD) >90 (>60 ml/min/1.73 sqM); Anion Gap 8 mmol/L; Blood Urea Nitrogen 22 mg/dL (7-17); Calcium 9.6 mg/dL (8.4-10.2); Carbon Dioxide 28 mmol/L (22-30); Chloride 105 mmol/L (98-107); Glucose 55 mg/dL (74-99); Non-African American GFR(CKD) 84 (>60 ml/min/1.73 sqM); Potassium 3.7 mmol/L (3.5-5.1); Sodium 141 mmol/L (137-145)
[2020-09-10] MEDS ORDERED: LIDOCAINE 1% INJ 10MG/ML (20 ML MDV) ONE (10:28)
[2020-09-10] MEDS ORDERED: fentaNYL (PF) 50 MCG/ML 2 ML AMP ONE (10:36)
[2020-09-10] MEDS ORDERED: hydrALAZINE HCL 20 MG/ML 1 ML VIAL ONE (10:36)
[2020-09-10] MEDS ORDERED: PROPOFOL 10 MG/ML 20 ML VIAL IV ONE (10:36)
[2020-09-10] MEDS ORDERED: KETAMINE 10 MG/ML 20 ML VIAL ONE (10:36)
[2020-09-10] MEDS ORDERED: MIDAZOLAM 2 MG/2 ML VIAL ONE (10:36)
[2020-09-10] MEDS ORDERED: PHENYLEPHRINE-0.9% NACL SYG 1,000 MCG/10 ML SYRINGE ONE (10:36)
[2020-09-10] MEDS ORDERED: ONDANSETRON 4 MG/2 ML VIAL ONE (10:36)
[2020-09-10] MEDS ORDERED: METOPROLOL TARTRATE 5 MG/5 ML VIAL IVP ONE (10:36)
[2020-09-10] MEDS ORDERED: IOPAMIDOL-370 50ML BTL INJ ONE (10:58)
[2020-09-10] MEDS: CLINDAMYCIN 900 MG in DEXTROSE 5% IN WATER 50 ML IVPB PRN ×4 (11:01→11:16)
[2020-09-10] MEDS: CLINDAMYCIN 600 MG in SODIUM CHLORIDE 0.9% 250 ML IRRIGATION PRN ×2 (11:01→11:17)
[2020-09-10] MEDS ORDERED: LIDOCAINE 1% INJ 10MG/ML (20 ML MDV) SQ ONE (11:37)
[2020-09-10] MEDS ORDERED: FLUTICASONE 50MCG/SPRAY NASAL 16GM EA NOSTRIL PRN (13:21)
[2020-09-10] MEDS ORDERED: ACETAMINOPHEN IV (For NPO) 1,000 MG in EMPTY BAG 1 BAG IVPB ONE (13:22)
[2020-09-10] MEDS ORDERED: ACETAMINOPHEN TAB 325 MG TAB PO PRN (13:22)
--- NOTE | 2020-09-10 13:26 | P.PCN ---
Preoperative Diagnosis: Extended procedure time This is a right-sided implant The area was prepped and draped and a double layer of sterile towels was used. Tincture benzoin was used around the central area to promote good adhesive contact the towels RV lead was positioned in the RV apex A screw-in atrial lead was used initially but while the P waves are excellent and the anatomic position was extremely stable in the right atrial appendage and thresholds were always above 3 V. 2 different positions attempt Thereafter time lead was implanted P waves are very diminutive 1 thresholds were excellent This also had to be repositioned to obtain better P waves and threshold At the end of the procedure P waves about 1.9 mV pacing threshold was 0.8. 0.5 ms in the atrium Current threshold 1 V at 0.5 ms
--- NOTE | 2020-09-10 13:27 | P.PCN ---
Preoperative Diagnosis: Right upper extremity venogram 50 mL IV dye injected into the right arm He didn't cephalic vein and patent subclavian vein on the right side Plan Proceed with dual-chamber pacemaker implantation right pectoral
[2020-09-10] MEDS ORDERED: FUROSEMIDE 10 MG/ML 4 ML VIAL IV ONE (13:50)
[2020-09-10] MEDS: FUROSEMIDE 10 MG/ML 4 ML VIAL IV ONE ×2 (13:50→14:46)
[2020-09-10] MEDS ORDERED: NALOXONE 0.4 MG/ML 10 ML VIAL IVP ONE (14:00)
--- NOTE | 2020-09-10 14:00 | XR ---
EXAMINATION TYPE: XR chest 1V portable DATE OF EXAM: 09/10/2020 COMPARISON: 07/29/2020 HISTORY: Lead placement check TECHNIQUE: Single frontal view of the chest is obtained. FINDINGS: Surgical clips in the left quadrant of the abdomen. There is a double lead pacemaker seen with approximately overlying the right atrium and the distal lead overlying the right ventricle. Hear t size normal. Coarsened interstitium with biapical pleural thickening. Tiny bilateral effusions. Art hropathy of the shoulders. IMPRESSION: 1. Correlate for mild venous congestion. 2. Cardiac device appears in good position with no sizable pneumothorax.
[2020-09-10] MEDS: SODIUM CHLORIDE 0.9% 1,000 ML IV SCH ×3 (14:26→23:57)
[2020-09-10 15:25] LABS: Glucose,Whole Blood 177 mg/dL (75-99)
[2020-09-10] MEDS ORDERED: PHENYLEPHRINE 40 MG in SODIUM CHLORIDE 0.9% 250 ML IV SCH (16:00)
--- NOTE | 2020-09-10 16:09 | P.CNPUL ---
History of Present Illness Consult date: 09/10/20 Chief complaint: Hypotension History of present illness: 69-year-old female patient who underwent a pacemaker placement and we were involved in the case and the patient became hypotensive following the procedure and ICU transfer was requested. The patient is known to have cellulitis/subcutaneous tissue infection at the site of a previous pacemaker related to statin the patient had the pacemaker removed earlier. She is known to have hypertension, hyperlipidemia, hypothyroidism, diabetes mellitus type 2 and coronary artery disease with multiple stent insertion in the past. The patient was discharged from the hospital on 07/29/2020 and she completed a course of daptomycin. Today she was brought in again for a pacemaker insertion and I think they've indication for the procedure is sick sinus syndrome. The patient had a procedure done under general anesthesia. During the course of her procedure, received Versed 2 mg, fentanyl 100 g, ketamine 20 mg and propofol 350 mg. Patient was extubated. She was noted to have an elevated blood pressure. She was given IV metoprolol 5 mg and IV hydralazine 10 mg. In recovery, the patient was found to be unresponsive. She was given Narcan 2 mg and subsequently she recovered consciousness. Chest x-ray showed pulmonary congestion without evidence of any pneumothorax and she was given a total of 40 mg IV Lasix 1. Subsequently she became hypotensive and currently she is on Marquez-Synephrine running at 0.3 mg/kg/m. Urine output is diminished. Mucous membranes are dry. She is awake and arousable and she is following commands and answering questions appropriately. No tachycardia. Most recent blood pressure systolic in the low 100s. The blood work shows a white cell count of 5.6 hemoglobin 12.6. Electrolytes are all within normal limits. COVID-19 testing is been negative. Review of Systems Constitutional: Denies chills, Denies fever Eyes: denies as per HPI, denies blurred vision, denies bulging eye, denies decreased vision, denies diplopia, denies discharge, denies dry eye, denies irritation, denies itching, denies pain, denies photophobia, denies loss of peripheral vision, denies loss of vision, denies tunnel vision/blind spots Ears: deny: decreased hearing, ear discharge, earache, tinnitus Ears, nose, mouth and throat: Reports as per HPI Breasts: absent: as per HPI, change in shape, gynecomastia, masses, nipple discharge, pain, skin changes, swelling Cardiovascular: Reports as per HPI Respiratory: Reports as per HPI Gastrointestinal: Reports as per HPI Genitourinary: Reports as per HPI Menstruation: Reports as per HPI Musculoskeletal: Reports as per HPI Musculoskeletal: absent: ankle pain, ankle stiffness, ankle swelling Integumentary: Reports as per HPI Neurological: Reports as per HPI (At time of my evaluation, the patient was awake and alert and will go 4 extremities without any limitation) Psychiatric: Reports as per HPI Endocrine: Reports as per HPI Hematologic/Lymphatic: Reports as per HPI Allergic/Immunologic: Reports as per HPI Past Medical History Past Medical History: Coronary Artery Disease (CAD), Chest Pain / Angina, Heart Failure, Diabetes Mellitus, Eye Disorder, GERD/Reflux, Hyperlipidemia, Hypertension, Myocardial Infarction (IA), Osteoarthritis (OA), Sleep Apnea/CPAP/BIPAP, Thyroid Disorder Additional Past Medical History / Comment(s): hx hypotension/cardiogenic shock, dizziness, junctional rhythm. Normal pressure hydrocephalus, neuropathy bilateral feet/toes, chronic back pain, RLS, embedded kidney stones, bilateral macular degeneration, IBS, narcolepsy, gout, SEE DR MORALES'S HISTORY AND PHYSICAL FOR CARDIAC HISTORY. PACEMAKER SITE INFECTED Last Myocardial Infarction Date:: 12/27/19 History of Any Multi-Drug Resistant Organisms: None Reported Past Surgical History: Back Surgery, EPS, Heart Catheterization With Stent, Joint Replacement, Orthopedic Surgery, Pacemaker, Tubal Ligation Additional Past Surgical History / Comment(s): 4 cardiac stents, low back surgery, brain shunt, colonoscopy, TOTAL LEFT KNEE. pacemaker removed 07/30/20 due to infection Past Anesthesia/Blood Transfusion Reactions: Motion Sickness, Postoperative Nausea & Vomiting (PONV) Date of Last Stent Placement:: 12/27/19 Type of Cardiac Device: Permanent Pacemaker Device Placement Date:: MAR 2020 Smoking Status: Never smoker - Past Family History Father History Unknown: Yes Family Medical History: Congestive Heart Failure (CHF), Hypertension Mother History Unknown: Yes Family Medical History: Congestive Heart Failure (CHF), Hypertension Brother(s) Family Medical History: Cancer, Myocardial Infarction (IA) Additional Family Medical History / Comment(s): One brother had an IA. Another brother had prostate cancer. Medications and Allergies Home Medications Medication Instructions Recorded Confirmed Type Aspirin [Adult Low Dose Aspirin EC] 81 mg PO HS 08/11/17 09/10/20 History Colchicine [Colcrys] 0.6 mg PO DAILY 08/11/17 09/10/20 History Lidocaine 5% Oint [Xylocaine 5% 1 applic TOPICAL HS PRN 08/11/17 09/07/20 History Oint] Nitroglycerin Sl Tabs [Nitrostat] 0.4 mg SL Q5M PRN 08/11/17 09/07/20 History Ticagrelor [Brilinta] 90 mg PO BID 08/11/17 09/10/20 History Ascorbic Acid [Vitamin C] 500 mg PO DAILY 12/27/19 09/10/20 History DULoxetine HCL [Cymbalta] 60 mg PO BID 12/27/19 09/10/20 History Desloratadine [Clarinex] 5 mg PO DAILY 12/27/19 09/10/20 History Ezetimibe [Zetia] 10 mg PO HS 12/27/19 09/10/20 History Fluticasone Nasal [place] [Flonase 2 spr EA NOSTRIL DAILY PRN 12/27/19 09/10/20 History Nasal [place]] Insulin Lispro [humaLOG Kwikpen] 30 unit SQ AC-TID 12/27/19 09/10/20 History Magnesium Oxide [Mag-Ox] 400 mg PO BID 12/27/19 09/10/20 History Multivitamins, Thera [Multivitamin 1 tab PO DAILY 12/27/19 09/10/20 History (formulary)] hydrOXYzine HCL [Atarax] 10 mg PO DAILY 12/27/19 09/10/20 History modafiniL [Provigil] 200 mg PO HS 12/27/19 09/10/20 History rOPINIRole HCL [Requip] 4 mg PO TID 12/27/19 09/10/20 History sitaGLIPtin PHOS/metFORMIN HCL 1 tab PO BID 12/27/19 09/10/20 History [Janumet 50-1,000 mg Tablet] Furosemide [Lasix] 20 - 40 mg PO DAILY PRN 02/07/20 09/10/20 History Lisinopril [Zestril] 20 mg PO DAILY 02/07/20 09/10/20 History Gabapentin 300 mg PO BID 07/29/20 09/10/20 History HYDROcodone/APAP 10-325MG [[place] 1 tab PO BID 07/29/20 09/10/20 History 10-325] Insulin Detemir [Levemir Flextouch] 35 units SQ HS 07/29/20 09/10/20 History Levothyroxine Sodium [Levoxyl] 125 mcg PO DAILY 07/29/20 09/10/20 History Metoprolol Tartrate [Lopressor] 25 mg PO BID 07/29/20 09/10/20 History Acetaminophen Tab [Tylenol] 650 mg PO Q6HR PRN tab 08/02/20 09/10/20 Rx Allergies Allergy/AdvReac Type Severity Reaction Status Date / Time Penicillins Allergy Rash/Hives Verified 09/07/20 08:29 Physical Exam Vitals: Vital Signs Temp Pulse Pulse Resp BP Pulse Ox 09/10/20 15:40 77 16 87/53 96 09/10/20 15:30 78 16 73/46 95 09/10/20 15:15 80 16 85/52 94 L 09/10/20 15:02 80 16 92/54 96 09/10/20 14:48 85 16 90/51 96 09/10/20 14:30 84 16 82/48 98 09/10/20 14:23 96 86/51 09/10/20 14:15 81 81/41 88 L 09/10/20 14:12 96 203/88 09/10/20 14:05 102 H 65/48 88 L 09/10/20 14:00 104 H 75/59 100 09/10/20 13:59 104 H 74/49 09/10/20 13:54 100 24 72/57 87 L 09/10/20 13:50 105 H 25 H 70/57 89 L 09/10/20 13:45 96 24 100/56 96 09/10/20 13:41 98 15 150/80 98 09/10/20 13:36 87 14 210/116 96 09/10/20 09:07 98.4 F 78 6 L 171/82 97 Intake and Output 09/10/20 09/10/20 09/10/20 06:59 14:59 22:59 Intake Total 926 25 Output Total 200 Balance 926 -175 Intake: IV 926 25 Output: Urine 200 Other: Weight 88.3 kg The patient appeared well nourished and normally developed. Vital signs as documented. Head exam is unremarkable. No scleral icterus or corneal arcus noted. Neck is without jugular venous distension, thyromegaly, or carotid bruits. Carotid upstrokes are brisk bilaterally. Lungs are clear to auscultation and percussion. Cardiac exam reveals the PMI to be normally sized and situated. Rhythm is regular. First and second heart sounds normal. No murmurs, rubs or gallops. Pacemaker pocket over the right anterior chest areas dry clean and intact. Abdominal exam reveals normal bowel sounds, no masses, no organomegaly and no aortic enlargement. Extremities are nonedematous and both femoral and pedal pulses are normal.. The patient is wearing and arms taken the right upper extremity. Examination of the skin revealed no evidence of significant rashes, suspicious appearing nevi or other concerning lesions.Neurologically, the patient is awake and alert and the patient does not have any focal neurological deficit. Cranial nerves are essentially intact. Results - Laboratory Findings CBC and BMP: 09/10/20 09:05 09/10/20 09:05 Abnormal lab findings: Abnormal Labs 09/10/20 09/10/20 09/10/20 09:05 09:05 15:23 RDW 17.0 H BUN 22 H Glucose 55 L POC Glucose (mg/dL) 177 H - Diagnostic Findings Chest x-ray: image reviewed Assessment and Plan Plan: 1 hypotension, likely drug induced along with a component of intravascular volume depletion. The patient was given a combination of narcotics during the procedure and following that she was given metoprolol and hydralazine and diuretics in the form of Lasix. Currently she is on Marquez-Synephrine infusion at the low dose to maintain a blood pressure. Note that the patient has mild component of CHF based on an earlier echocardiogram and the patient has a mild impairment of the LV function with an ejection fraction of 45-50%. There is also some segmental wall motion abnormalities. 2 altered mental status, likely drug-induced, recovered and the neurologic status is currently inactive in stable 3 pacemaker insertion, postop day #0 4 history of an infected pacemaker removal back in July 2020 and the patient completed the course of antibiotics with daptomycin 5 coronary artery disease with previous history of coronary stenting 6 diabetes mellitus 7 history of hypertension 8 hyperlipidemia 9 osteoarthritis 10 KATI 11 peripheral neuropathy 12 normal pressure hydrocephalus 13 bilateral macular degeneration 14 irritable bowel syndrome 15 questionable history of narcolepsy maintain on modafinil an outpatient basis 200 mg on a daily basis. 16 chronic back pain Plan Give the patient 500 mL of normal saline bolus Continue Marquez-Synephrine drip and gradually wean it off to titrate any arterial pressure above 65 Continue clindamycin Monitor blood sugar and resume Levemir insulin once the patient is back to regular diet. Hold antihypertensive medication including metoprolol for now Hold Zestril Offer diet once the patient is back in ICU fully alert. Laboratory swallow evaluation Resume Synthroid, 25 g on a daily basis by mouth Resume modafinil 200 mg milligrams by mouth daily We'll continue to follow Time with Patient: Greater than 30
[2020-09-10 16:22] LABS: Glucose,Whole Blood 170 mg/dL (75-99)
[2020-09-10] MEDS: CLINDAMYCIN 900 MG in DEXTROSE 5% IN WATER 50 ML IVPB SCH ×4 (16:54→23:59)
[2020-09-10] MEDS: INSULIN ASPART (NovoLOG) 100 UNIT/ML VIAL SQ SCH ×2 (17:00→17:30)
[2020-09-10] MEDS: rOPINIRole HCL 4 MG TABLET PO SCH ×2 (17:59→20:01)
[2020-09-10] MEDS: METOPROLOL TARTRATE 25 MG TAB PO SCH (19:50)
[2020-09-10] MEDS: NOREPINEPHRINE 4 MG in SODIUM CHLORIDE 0.9% 250 ML IV SCH (19:54)
[2020-09-10] MEDS: HYDROcodone/APAP 5-325MG 1 EACH TAB PO PRN (19:58)
[2020-09-10] MEDS: GABAPENTIN 300 MG CAP PO SCH (20:00)
[2020-09-10] MEDS: ASPIRIN 81 MG PO SCH (20:01)
[2020-09-10] MEDS: DULoxetine HCL 60 MG CAPSULE.DR PO SCH (20:01)
[2020-09-10] MEDS: INSULIN DETEMIR (LEVEMIR) 100 UNIT/ML SYR SQ SCH (20:01)
[2020-09-10] MEDS: TICAGRELOR 90 MG TAB PO SCH (20:01)
[2020-09-10] MEDS: EZETIMIBE 10 MG TAB PO SCH (20:01)
[2020-09-10 20:02] LABS: Glucose,Whole Blood 197 mg/dL (75-99)
[2020-09-11 03:35] LABS: Anisocytosis Slight; HCT 34.7 % (34.0-46.0); HGB 11.6 gm/dL (11.4-16.0); MCHC 33.4 g/dL (31.0-37.0); MCV 86.9 fL (80.0-100.0); Mean Platelet Volume 8.5; Platelet Count 166 k/uL (150-450); RBC 3.99 m/uL (3.80-5.40); RDW 17.2 % (11.5-15.5); WBC 12.1 k/uL (3.8-10.6)
[2020-09-11 03:51] LABS: Calcium 8.7 mg/dL (8.4-10.2); Potassium 4.5 mmol/L (3.5-5.1)
[2020-09-11] MEDS: CLINDAMYCIN 900 MG in DEXTROSE 5% IN WATER 50 ML IVPB SCH ×2 (05:45)
[2020-09-11] MEDS: LEVOTHYROXINE 125 MCG TAB PO SCH (05:49)
[2020-09-11 06:51] LABS: Glucose,Whole Blood 116 mg/dL (75-99)
[2020-09-11] MEDS: INSULIN ASPART (NovoLOG) 100 UNIT/ML VIAL SQ SCH ×3 (07:07→17:07)
[2020-09-11] MEDS: COLCHICINE 0.6 MG EACH PO SCH (08:14)
[2020-09-11] MEDS: DULoxetine HCL 60 MG CAPSULE.DR PO SCH ×2 (08:15→21:06)
[2020-09-11] MEDS: GABAPENTIN 300 MG CAP PO SCH ×2 (08:15→21:06)
[2020-09-11] MEDS: hydrOXYzine HCL 10 MG TAB PO SCH (08:15)
[2020-09-11] MEDS: rOPINIRole HCL 4 MG TABLET PO SCH ×3 (08:17→22:17)
[2020-09-11] MEDS: TICAGRELOR 90 MG TAB PO SCH ×2 (08:17→21:06)
[2020-09-11] MEDS: METOPROLOL TARTRATE 25 MG TAB PO SCH ×2 (08:21→21:06)
[2020-09-11] MEDS: LINAGLIPTIN 5 MG TABLET PO SCH (08:21)
[2020-09-11] MEDS ORDERED: lisinopriL 20 MG TAB PO SCH (09:00)
--- NOTE | 2020-09-11 09:31 | XR ---
EXAMINATION TYPE: XR chest 1V portable DATE OF EXAM: 09/11/2020 COMPARISON: 09/10/2020 HISTORY: Cardiac arrhythmia TECHNIQUE: Single frontal view of the chest is obtained. FINDINGS: There is no focal air space opacity, pleural effusion, or pneumothorax seen. The cardiac silhouette size is within normal limits. The osseous structures are intact. Cardiac device is stabl e. Heart size stable. Hypertrophic change of the spine. No overt failure. IMPRESSION: No acute process.
--- NOTE | 2020-09-11 09:41 | P.PN ---
Subjective Progress Note Date: 09/11/20 69-year-old female patient who underwent a pacemaker placement and we were involved in the case and the patient became hypotensive following the procedure and ICU transfer was requested. The patient is known to have cellulitis/subcutaneous tissue infection at the site of a previous pacemaker related to statin the patient had the pacemaker removed earlier. She is known to have hypertension, hyperlipidemia, hypothyroidism, diabetes mellitus type 2 and coronary artery disease with multiple stent insertion in the past. The patient was discharged from the hospital on 07/29/2020 and she completed a co urse of daptomycin. Today she was brought in again for a pacemaker insertion and I think they've indication for the procedure is sick sinus syndrome. The patient had a procedure done under general anesthesia. During the course of her procedure, received Versed 2 mg, fentanyl 100 g, ketamine 20 mg and propofol 350 mg. Patient was extubated. She was noted to have an elevated blood pressure. She was given IV metoprolol 5 mg and IV hydralazine 10 mg. In recovery, the patient was found to be unresponsive. She was given Narcan 2 mg and subsequently she recovered consciousness. Chest x-ray showed pulmonary congestion without evidence of any pneumothorax and she was given a total of 40 mg IV Lasix 1. Subsequently she became hypotensive and currently she is on Marquez-Synephrine running at 0.3 mg/kg/m. Urine output is diminished. Mucous membranes are dry. She is awake and arousable and she is following commands and answering questions appropriately. No tachycardia. Most recent blood pressure systolic in the low 100s. The blood work shows a white cell count of 5.6 hemoglobin 12.6. Electrolytes are all within normal limits. COVID-19 testing is been negative. On 09/11/2020 I'm seeing the patient for a follow-up. As mentioned earlier, the patient a chest to the intensive care unit because of some hypotension. Initially she was on Marquez-Synephrine infusion and later on she was replaced with levothyroxine which was running at low dose at 0.01 mitral respiratory failure and per minute. She ultimately was weaned off the pressors at around 5 AM this morning and currently she is off pressors. IV fluids are running in the form of normal saline at the rate of 50 mL an hour. She has an excellent urine output. Chest x-ray from today showing no complications related to the pacemaker insertion. The patient has a sinus rhythm for now. Blood work showing a white cell count of 12.1 with a hemoglobin of 11.6. Renal function is stable with a BUN of 25 and creatinine of 0.8. Chest x-ray showing some elevation of the right hemidiaphragm. No complications related to the pacemaker insertion. No pneumothorax. Left lung is essentially clear. Objective - Vital Signs Vital signs: Vital Signs Temp 97.6 F 09/11/20 08:00 Pulse 80 09/11/20 09:00 Resp 15 09/11/20 09:00 BP 95/56 09/11/20 09:00 Pulse Ox 94 L 09/11/20 09:00 Intake & Output 09/10/20 09/11/20 09/11/20 18:59 06:59 18:59 Intake Total 1951 1146.189 100 Output Total 525 770 55 Balance 1426 376.189 45 Weight 88.3 kg 92.7 kg Intake: IV 1950 1050 100 Sodium Chloride 0.9% 1, 550 100 000 ml @ 50 mls/hr IV . [facility] Rx#:[id number] Sodium Chloride 0.9% 500 1000 500 ml 500 ml @ 0 mls/hr IV . [facility] Rx#: [id number] Intake, IV Titration 96.189 Amount Norepinephrine 4 mg In 65.237 Sodium Chloride 0.9% 250 ml @ 0.05 MCG/KG/MIN 16. 821 mls/hr IV .Q15H7M [facility] Rx#:[id number] Phenylephrine 40 mg In 30.952 Sodium Chloride 0.9% 250 ml @ 0.5 MCG/KG/MIN 16. 821 mls/hr IV .[facility]15[facility] Rx#:[id number] Output: Urine 525 770 55 Other: Voiding Method Indwelling Catheter Indwelling Catheter Indwelling Catheter - Exam The patient appeared well nourished and normally developed. Vital signs as documented. Head exam is unremarkable. No scleral icterus or corneal arcus noted. Neck is without jugular venous distension, thyromegaly, or carotid bruits. Carotid upstrokes are brisk bilaterally. Lungs are clear to auscultation and percussion. Cardiac exam reveals the PMI to be normally sized and situated. Rhythm is regular. First and second heart sounds normal. No murmurs, rubs or gallops. Pacemaker pocket over the right anterior chest areas dry clean and intact. Abdominal exam reveals normal bowel sounds, no masses, no organomegaly and no aortic enlargement. Extremities are nonedematous and both femoral and pedal pulses are normal.. The patient is wearing and arms taken the right upper extremity. Examination of the skin revealed no evidence of significant rashes, suspicious appearing nevi or other concerning lesions.Neurologically, the patient is awake and alert and the patient does not have any focal neurological deficit. Cranial nerves are essentially intact. - Labs CBC & Chem 7: 09/11/20 03:10 09/11/20 03:10 Labs: Abnormal Lab Results - Last 24 Hours (Table) 09/10/20 09/10/20 09/10/20 Range/Units 09:05 09:05 15:23 WBC (3.8-10.6) k/uL RDW 17.0 H (11.5-15.5) % BUN 22 H (7-17) mg/dL Glucose 55 L (74-99) mg/dL POC Glucose (mg/dL) 177 H (75-99) mg/dL 09/10/20 09/10/20 09/11/20 Range/Units 16:21 20:00 03:10 WBC 12.1 H (3.8-10.6) k/uL RDW 17.2 H (11.5-15.5) % BUN (7-17) mg/dL Glucose (74-99) mg/dL POC Glucose (mg/dL) 170 H 197 H (75-99) mg/dL 09/11/20 09/11/20 Range/Units 03:10 06:49 WBC (3.8-10.6) k/uL RDW (11.5-15.5) % BUN 25 H (7-17) mg/dL Glucose 121 H (74-99) mg/dL POC Glucose (mg/dL) 116 H (75-99) mg/dL Assessment and Plan Plan: 1 hypotension, likely drug induced along with a component of intravascular volume depletion. The patient was given a combination of narcotics during the procedure and following that she was given metoprolol and hydralazine and diuretics in the form of Lasix. Overnight, the patient required pressors. She initially she was on Marquez-Synephrine, later on levo fed and currently she is off pressors. The current mean arterial pressures around 76 and she has been started on her beta blockers and hydralazine. Chest x-ray showed occasional ventricular pacemaker insertion. No pneumothorax. No signs of any infection. 2 altered mental status, likely drug-induced, recovered and the neurologic status is currently inactive in stable 3 pacemaker insertion, postop day #1 4 history of an infected pacemaker removal back in July 2020 and the patient completed the course of antibiotics with daptomycin 5 coronary artery disease with previous history of coronary stenting 6 diabetes mellitus 7 history of hypertension 8 hyperlipidemia 9 osteoarthritis 10 KATI 11 peripheral neuropathy 12 normal pressure hydrocephalus 13 bilateral macular degeneration 14 irritable bowel syndrome 15 questionable history of narcolepsy maintain on modafinil an outpatient basis 200 mg on a daily basis. 16 chronic back pain Plan Pressors for now and monitor the blood pressure IV fluids to KVO Incentive spirometer Diabetic diet Monitor blood sugar and resume Levemir insulin once the patient is back to regular diet. Hold antihypertensive medication including metoprolol and Zestril and monitor the blood pressure. Synthroid, 25 g on a daily basis by mouth Resume modafinil 200 mg milligrams by mouth daily We'll continue to follow
[2020-09-11] MEDS: HYDROcodone/APAP 5-325MG 1 EACH TAB PO PRN (10:36)
--- NOTE | 2020-09-11 11:06 | ECHOF ---
Referral Reason:unstable post-procedure MEASUREMENTS -------- HEIGHT: 172.7 cm WEIGHT: 88.0 kg BP: FINDINGS -------- Pacerwire seen in RV and RA. Status Post Pacmaker insertion: r/o pericardial effusion. LV size, wall thickness and systolic function are normal, with an EF greater than 55%. There is no pericardial effusion. CONCLUSIONS -------- 1. Pacerwire seen in RV and RA. 2. Status Post Pacmaker insertion: r/o pericardial effusion. 3. LV size, wall thickness and systolic function are normal, with an EF greater than 55%. 4. There is no pericardial effusion. COMMERCIAL SINGER: Jayleen Rider RDCS
[2020-09-11] MEDS: NOREPINEPHRINE 4 MG in SODIUM CHLORIDE 0.9% 250 ML IV SCH (11:38)
[2020-09-11 11:52] LABS: Glucose,Whole Blood 58 mg/dL (75-99)
[2020-09-11 12:10] LABS: Glucose,Whole Blood 86 mg/dL (75-99)
[2020-09-11 13:08] LABS: Glucose,Whole Blood 137 mg/dL (75-99)
--- NOTE | 2020-09-11 13:14 | CDI ---
Documentation Clarification Form Date: 09/11/2020 11:38:00 AM From: Sarahy Aquino RN, CCDS Admit Date: 09/10/2020 01:22:00 PM Patient Name: Luciana Granados Visit Number: [id number] Discharge Date: ATTENTION: The Clinical Documentation Specialists (CDI) and [facility] Coding Staff appreciate your assistance in clarifying documentation. Please respond to the clarification below the line at the bottom and electronically sign. The CDI & [facility] Coding staff will review the response and follow-up if needed. Please note: Queries are made part of the Legal Health Record. If you have any questions, please contact the author of this message via ITS. Dr. Karena Browne Your patient has the documented symptom of Altered Mental Status, likely drug- induced. Additional clarification regarding the etiology/cause of this symptom is requested. History/Risk Factors: Sick sinus, Hypertension, CAD, Heart Failure, Diabetes Mellitus, hypotension/cardiogenic shock Clinical Indicators: 69-year-old female who underwent a pacemaker placement on 09/10/20.In the pulmonary consult the patient was found to be unresponsive in recovery and treated with Narcan 2 mg with recovered consciousness. 09/10 Vital sign 14:48 90/51 85 16 96 % Simple mask 10/L 09/10 Labs: WBC 5.6, BUN 22 HGB 12.6, HCT 37.2 Chest X Ray: pulmonary congestion without evidence of any pneumothorax. : Treatment: ICU Monitoring Narcan 2 mg IV (at 14:48) Neurological assessment per protocol Hold antihypertensive medication Please clarify the etiology of the symptom of Altered Mental Status: likely drug induced: [ x ] Toxic Encephalopathy due to drugs [ ] Other condition (please specify [ ] Unable to determine (Template Last Revised: April 2020) MTDD
--- NOTE | 2020-09-11 14:07 | CDI ---
Documentation Clarification Form Date: 09/11/2020 01:14:00 PM From: Sarahy Aquino RN, CCDS Admit Date: 09/10/2020 01:22:00 PM Patient Name: Luciana Granados Visit Number: [id number] Discharge Date: ATTENTION: The Clinical Documentation Specialists (CDI) and [facility] Coding Staff appreciate your assistance in clarifying documentation. Please respond to the clarification below the line at the bottom and electronically sign. The CDI & [facility] Coding staff will review the response and follow-up if needed. Please note: Queries are made part of the Legal Health Record. If you have any questions, please contact the author of this message via ITS. Dr. Karena Browne The patient has the documented diagnosis of unspecified CHF in you consult on 09/10/20 and past medical history. Additional information regarding the [type, acuity] of CHF is requested. History/Risk Factors: Sick sinus, Hypertension, CAD, Heart Failure, Diabetes Mellitus, hypotension/cardiogenic shock Clinical Indicators: 69-year- old female present on 09/10 for pacemaker insertion. In the consult you have documented mild component of CHF based on an earlier echocardiogram and the patient has a mild impaired of the LV function with an ejection fraction 45-50 % (ECHO on admission EF greater than 55%) 09/10 Vital sign 14:48 90/51 85 16 96 % Simple mask 10/L 09/10 Labs: WBC 5.6, BUN 22 HGB 12.6, HCT 37.2 09/10 CXR: Correlate for mild venous congestion 09/10 Echocardiogram Results: LV size, wall thickness and systolic function are normal with an EF greater than 55% Treatment: Monitor I/O Lasix 20 MG IV Once In your professional opinion, can you please clarify the [acuity and type] of CHF if known? [ ] Acute Diastolic Heart Failure (preserved EF) [ x ] Chronic Diastolic Heart Failure (preserved EF) [ ] Acute on Chronic Diastolic Heart Failure (preserved EF) [ ] Acute Systolic & Diastolic Heart Failure [ ] Chronic Systolic & Diastolic Heart Failure [ ] Acute on Chronic Heart Failure Systolic & Diastolic Heart Failure [ ] Other, please specify [ ] Unable to determine (Template Last Revised: April 2020) MTDD
--- NOTE | 2020-09-11 16:06 | P.PN ---
Progress Note - Text Post operative assessment on August in the recovery room I was called from the recovery room after the patient had been transferred there from the EP lab I spoke to the SPECIAL EDUCATOR who said the patient may have had a stroke since she was unarousable Her blood pressure were apparently was very high in the recovery room, greater than 200 mmHg First IV metoprolol was administered by the SPECIAL EDUCATOR and subsequently 10 mg of IV hydralazine administered prior to my When I arrived in the recovery room the patient was breathing heavily, was somewhat diaphoretic and a repeat blood pressure showed a systolic blood pressure of 70 mmHg This was rechecked by manual blood pressure measurement and her blood pressure was 70-80 mmHg Trendelenburg position and provided She had been given IV Lasix since she had crackles in both lungs Pressors were begun field associate Dr. Wahl was in attendance The patient was unarousable and not responding to verbal or painful stimuli IV Narcan was administered and the patient immediately opened her eyes and started to converse and answer questions appropriately She was able to move all 4 extremities upon command She was able to smile, stick out her tongue, show her teeth and answers simple questions such as state my name, her 's name, where she was, how she got here and the color of the car that she rode in However her blood pressure remained low and phenylephrine IV was used to keep her blood pressure within 80-90 mmHg She had a chest x-ray and I spoke to the radiologist. No evidence for pneumothorax Leads were in good position Increase vascular markings were described by the physician A stat 2-D echo was done No pericardial effusion noted Normal LV systolic function noted She was transferred to the ICU for further monitoring Her oral antihypertensive medications were put on hold Impression Sick sinus syndrome status post right-sided permanent pacemaker under MAC, NOT GENERAL ANESTHESIA Postoperative sedation and reduced mentation No clinical evidence for CVA Patient immediately responded to IV Narcan administration, but still remained drowsy without verbal stimuli Patient very sedated on account of combination of drugs administered during the procedure including Versed, fentanyl, propofol and ketamine Status post successful right-sided permanent pacemaker implantation that was scheduled under MAC
--- NOTE | 2020-09-11 16:11 | P.PN ---
Subjective Patient in the ICU Doing well Sitting comfortably in bed [place] to eat breakfast Alert oriented moving all 4 extremities Blood pressure 90s systolic Off norepinephrine Overnight the pressors was switched from phenylephrine norepinephrine This was stopped at around 5 AM in the morning by the nurse She denied any chest discomfort just complained of soreness in the right pectoral area No JVD Breath sounds clear no rhonchi no crackles Normal heart sounds normal S1 normal S2 No lower extremity edema Minimal soakage in the dressing of the pacemaker No hematoma Labs reviewed. White count 12,000, hemoglobin 11.6, platelet count 166,000 Sodium 137, potassium 4.5, BUN 25 and creatinine 0.83 Impression Sick sinus syndrome status post right-sided permanent pacemaker implantation Improvement in mental status since yesterday Plan completion of IV antibiotics Pacemaker interrogation today If stable she may be transferred to [facility]. today Discharge planning for tomorrow Objective - Vital Signs Vital signs: Vital Signs Temp 97.6 F 09/11/20 12:00 Pulse 88 09/11/20 14:00 Resp 14 09/11/20 14:00 BP 97/58 09/11/20 14:00 Pulse Ox 95 09/11/20 14:00 Intake & Output 09/10/20 09/11/20 09/11/20 18:59 06:59 18:59 Intake Total 1950 1146.189 210 Output Total 525 770 165 Balance 1426 376.189 45 Weight 88.3 kg 92.7 kg Intake: IV 1950 1050 210 Sodium Chloride 0.9% 1, 550 210 000 ml @ 50 mls/hr IV . [facility] Rx#:[id number] Sodium Chloride 0.9% 500 1000 500 ml 500 ml @ 0 mls/hr IV . [facility] Rx#: [id number] Intake, IV Titration 96.189 Amount Norepinephrine 4 mg In 65.237 Sodium Chloride 0.9% 250 ml @ 0.05 MCG/KG/MIN 16. 821 mls/hr IV [facility] Rx#:[id number] Phenylephrine 40 mg In 30.952 Sodium Chloride 0.9% 250 ml @ 0.5 MCG/KG/MIN 16. 821 mls/hr IV [facility] Rx#:[id number] Output: Urine 525 770 165 Other: Voiding Method Indwelling Catheter Indwelling Catheter Indwelling Catheter # Voids 0 - Labs CBC & Chem 7: 09/11/20 03:10 09/11/20 03:10 Labs: Abnormal Lab Results - Last 24 Hours (Table) 09/10/20 09/10/20 09/11/20 Range/Units 16:21 20:00 03:10 WBC 12.1 H (3.8-10.6) k/uL RDW 17.2 H (11.5-15.5) % BUN (7-17) mg/dL Glucose (74-99) mg/dL POC Glucose (mg/dL) 170 H 197 H (75-99) mg/dL 09/11/20 09/11/20 09/11/20 Range/Units 03:10 06:49 11:51 WBC (3.8-10.6) k/uL RDW (11.5-15.5) % BUN 25 H (7-17) mg/dL Glucose 121 H (74-99) mg/dL POC Glucose (mg/dL) 116 H 58 L (75-99) mg/dL 09/11/20 Range/Units 13:07 WBC (3.8-10.6) k/uL RDW (11.5-15.5) % BUN (7-17) mg/dL Glucose (74-99) mg/dL POC Glucose (mg/dL) 137 H (75-99) mg/dL
[2020-09-11 16:29] LABS: Glucose,Whole Blood 181 mg/dL (75-99)
--- NOTE | 2020-09-11 16:35 | CE ---
CARDIAC ELECTROPHYSIOLOGY REPORT This is a 69-year-old female who underwent permanent pacemaker implantation within the last 6 months. Subsequently, there was RV lead dislodgement and she underwent an RV lead replacement/inversion. However, at that time she developed a superficial wound infection which did not resolve with oral antibiotics and the lead was extracted. She was treated with IV antibiotics. After completion of antibiotics, she was brought in for dual-chamber pacemaker implantation in the right side. Of note, we have seen the sterile drapes do not stick well to this lady's skin, even regular tape to secure IV lines does not stick well. She was instructed not to use any lotion at all and I personally prepped her prior to the procedure. Tincture benzoin was used around the area outside of the surgical site to allow for the drapes to stick better to the skin and maintain sterility. At this time when I was prepping her, she had already received 2 mg of IV Versed and she was sound asleep. Once she was draped, IV antibiotics were administered, IV vancomycin and local anesthesia was used. A 4 cm incision was made in the right pectoral groove, the right deltopectoral groove, about 1.5 cm medial to it and carried down to the level of the pectoralis muscle. A subfascial pocket was made. Hemostasis was assured. The left axillary vein was accessed at 2 separate points under fluoroscopy and via appropriately-sized introducer sheaths. Two leads were positioned the right heart. The right ventricular lead was a [employer] 52 cm, model #5076, serial number [id number]. This was positioned in the very low RV septum just above the RV apex and screwed in. R-waves 21-22 mV, pacing impedance 817 ohms, pacing threshold 1.25 V at 0.4 milliseconds, 10 V test negative. The right atrial lead used initially was a screw-in lead and the right atrial lead used was a screw-in lead, the screw to the right atrial appendage. Despite sensing greater than 3 mV, the pacing threshold was high. The lead was ( ) depleted, but the thresholds still remained above 3.5 V at 0.5 milliseconds. Therefore, after waiting for about 5 minutes or so, we removed this lead and implanted a tined lead. The tined lead too had to be repositioned twice to get good P wave sensing and good thresholds. The final position had P waves of about 1.1-1.2 mV, pacing threshold 1 V at 0.4 milliseconds, pacing impedance 646 ohms. All atrial lead positions on fluoroscopy were excellent, but somehow the sensing was quite variable and the pacing thresholds were high despite a good current of injury that resolved within reasonable time. Once a good lead position was achieved for the passive lead, both leads were secured to the underlying pectoralis muscle. The pocket was irrigated with antibiotic solution. Leads were connected to the generator ([employer] model number W1BR01, serial number [id number] [employer] Fern XT DR MRI. The leads and the generator were then placed in subfascial pocket and the wound was closed in 3 layers and dressed per protocol. This procedure was longer than usual since it was on the right side (the right pectoral area) as well as the fact that 2 different atrial leads were implanted and multiple positions had to be sought before acceptable thresholds and sensing was was achieved. This was achieved at the end of the procedure. At the end of the procedure, the patient seemed very sedated and unarousable. IMPRESSION: Successful dual-chamber pacemaker implantation right-sided implant. PLAN: IV antibiotics overnight. The patient was transferred to the recovery room to recover from MAC. MMHEAVENLY / IJN: [id number] /
[2020-09-11 20:46] LABS: Glucose,Whole Blood 134 mg/dL (75-99)
[2020-09-11] MEDS: ASPIRIN 81 MG PO SCH (21:06)
[2020-09-11] MEDS: INSULIN DETEMIR (LEVEMIR) 100 UNIT/ML SYR SQ SCH (22:17)
[2020-09-11] MEDS: EZETIMIBE 10 MG TAB PO SCH (22:17)
[2020-09-12 03:50] LABS: Anisocytosis Slight; Basophils % (A) 0 %; Eosinophils % (A) 0 %; HCT 31.8 % (34.0-46.0); HGB 10.8 gm/dL (11.4-16.0); Lymphocytes # (A) 1.3 k/uL (1.0-4.8); Lymphocytes % (A) 23 %; MCH 28.9 pg (25.0-35.0); MCV 85.1 fL (80.0-100.0); Mean Platelet Volume 8.6; Monocytes # (A) 0.4 k/uL (0-1.0); Monocytes % (A) 6 %; Neutrophils # (A) 3.9 k/uL (1.3-7.7); Neutrophils % (A) 69 %; Platelet Count 127 k/uL (150-450); RBC 3.74 m/uL (3.80-5.40); RDW 17.2 % (11.5-15.5); WBC 5.7 k/uL (3.8-10.6)
[2020-09-12 04:05] VITALS: RESP 18; TEMP 97.4
[2020-09-12 04:14] LABS: African American GFR (CKD) >90 (>60 ml/min/1.73 sqM); Anion Gap 5 mmol/L; Blood Urea Nitrogen 21 mg/dL (7-17); Calcium 8.6 mg/dL (8.4-10.2); Carbon Dioxide 25 mmol/L (22-30); Chloride 105 mmol/L (98-107); Glucose 89 mg/dL (74-99); Non-African American GFR(CKD) 81 (>60 ml/min/1.73 sqM); Potassium 4.1 mmol/L (3.5-5.1); Sodium 135 mmol/L (137-145)
[2020-09-12] MEDS: LEVOTHYROXINE 125 MCG TAB PO SCH (06:04)
[2020-09-12 06:59] LABS: Glucose,Whole Blood 73 mg/dL (75-99)
[2020-09-12] MEDS: INSULIN ASPART (NovoLOG) 100 UNIT/ML VIAL SQ SCH ×2 (07:05→11:56)
[2020-09-12] MEDS ORDERED: FUROSEMIDE 40 MG TAB PO STA (07:39)
--- NOTE | 2020-09-12 07:52 | P.DS ---
Providers Date of admission: 09/10/20 13:22 Attending physician: Sai Murphy Consults: 09/10/20 15:58 Consult Physician Urgent Consulting Provider: Karena Browne Consult Reason/Comments: BLOOD PRESSURE ISSUES Do you want consulting provider notified?: Already Contacted [facility] care [facility] Course: Patient is resting comfortably in bed No breathing trouble fully alert awake ambulating around in the room and going to the bathroom Her blood pressure is much better now 131/70, 440/80, 135/70 mmHg Afebrile 97.4F pulse rate in the 80s Breath sounds are reduced bilaterally no rhonchi no crackles Normal heart sounds Pacemaker site is healing well very mild swelling of the dressing LV function is normal on 2-D echo Pacemaker interrogation yesterday showed normal atrial and ventricular lead function Chest x-ray did not show any focal airspace opacity pleural effusion or pneumothorax Impression Sick sinus syndrome status post right-sided pacemaker implantation Anesthetic Drug-induced cerebral depression in the postoperative phase, requiring ICU monitoring Complete recovery over the first 24 hours, that began with administration of Narcan in the immediate postoperative period Hypertension, restart home medications Coronary artery disease status post cardiac stenting on aspirin and Brilinta which is to continue Continue metoprolol Plan Resume metoprolol and lisinopril Ambulate around in the room 40 mg of Lasix by mouth 1 this morning Continue all cardiac medications and diabetes medications If hemodynamically stable and the patient should be discharged home today after lunch and follow-up in the device clinic next week and with Dr. Ruiz as previously scheduled Plan - Discharge Summary Discharge Rx Participant: Yes New Discharge Prescriptions: Continue Aspirin [Adult Low Dose Aspirin EC] 81 mg PO HS Colchicine [Colcrys] 0.6 mg PO DAILY Ticagrelor [Brilinta] 90 mg PO BID Nitroglycerin Sl Tabs [Nitrostat] 0.4 mg SL Q5M PRN PRN Reason: Chest Pain Lidocaine 5% Oint [Xylocaine 5% Oint] 1 applic TOPICAL HS PRN PRN Reason: Breakthrough Pain rOPINIRole HCL [Requip] 4 mg PO TID Multivitamins, Thera [Multivitamin (formulary)] 1 tab PO DAILY sitaGLIPtin PHOS/metFORMIN HCL [Janumet 50-1,000 mg Tablet] 1 tab PO BID Magnesium Oxide [Mag-Ox] 400 mg PO BID Insulin Lispro [humaLOG Kwikpen] 30 unit SQ AC-TID hydrOXYzine HCL [Atarax] 10 mg PO DAILY Fluticasone Nasal [place] [Flonase Nasal [place]] 2 spr EA NOSTRIL DAILY PRN PRN Reason: Allergy Symptoms Ezetimibe [Zetia] 10 mg PO HS DULoxetine HCL [Cymbalta] 60 mg PO BID Desloratadine [Clarinex] 5 mg PO DAILY Ascorbic Acid [Vitamin C] 500 mg PO DAILY modafiniL [Provigil] 200 mg PO HS Lisinopril [Zestril] 20 mg PO DAILY Furosemide [Lasix] 20 - 40 mg PO DAILY PRN PRN Reason: Edema HYDROcodone/APAP 10-325MG [[place] 10-325] 1 tab PO BID Gabapentin 300 mg PO BID Metoprolol Tartrate [Lopressor] 25 mg PO BID Levothyroxine Sodium [Levoxyl] 125 mcg PO DAILY Insulin Detemir [Levemir Flextouch] 35 units SQ HS Acetaminophen Tab [Tylenol] 650 mg PO Q6HR PRN tab PRN Reason: Mild Pain Discharge Medication List Aspirin [Adult Low Dose Aspirin EC] 81 mg PO HS 08/11/17 [History] Colchicine [Colcrys] 0.6 mg PO DAILY 08/11/17 [History] Lidocaine 5% Oint [Xylocaine 5% Oint] 1 applic TOPICAL HS PRN 08/11/17 [History] Nitroglycerin Sl Tabs [Nitrostat] 0.4 mg SL Q5M PRN 08/11/17 [History] Ticagrelor [Brilinta] 90 mg PO BID 08/11/17 [History] Ascorbic Acid [Vitamin C] 500 mg PO DAILY 12/27/19 [History] DULoxetine HCL [Cymbalta] 60 mg PO BID 12/27/19 [History] Desloratadine [Clarinex] 5 mg PO DAILY 12/27/19 [History] Ezetimibe [Zetia] 10 mg PO HS 12/27/19 [History] Fluticasone Nasal [place] [Flonase Nasal [place]] 2 spr EA NOSTRIL DAILY PRN 12/27/19 [History] Insulin Lispro [humaLOG Kwikpen] 30 unit SQ AC-TID 12/27/19 [History] Magnesium Oxide [Mag-Ox] 400 mg PO BID 12/27/19 [History] Multivitamins, Thera [Multivitamin (formulary)] 1 tab PO DAILY 12/27/19 [History] hydrOXYzine HCL [Atarax] 10 mg PO DAILY 12/27/19 [History] modafiniL [Provigil] 200 mg PO HS 12/27/19 [History] rOPINIRole HCL [Requip] 4 mg PO TID 12/27/19 [History] sitaGLIPtin PHOS/metFORMIN HCL [Janumet 50-1,000 mg Tablet] 1 tab PO BID 11/29 12/17 [History] Furosemide [Lasix] 20 - 40 mg PO DAILY PRN 02/07/20 [History] Lisinopril [Zestril] 20 mg PO DAILY 02/07/20 [History] Gabapentin 300 mg PO BID 07/29/20 [History] HYDROcodone/APAP 10-325MG [[place] 10-325] 1 tab PO BID 07/29/20 [History] Insulin Detemir [Levemir Flextouch] 35 units SQ HS 07/29/20 [History] Levothyroxine Sodium [Levoxyl] 125 mcg PO DAILY 07/29/20 [History] Metoprolol Tartrate [Lopressor] 25 mg PO BID 07/29/20 [History] Acetaminophen Tab [Tylenol] 650 mg PO Q6HR PRN tab 08/02/20 [Rx] Follow up Appointment(s)/Referral(s): Sai Murphy MD [STAFF PHYSICIAN] - As Needed (Device Clinic 09/20 at 09:[address] Ruiz 09/25 at 11:15 am Discharge home after lunch if hemodynamically stable and ambulating in the hallways No change in home medications) Activity/Diet/Wound Care/Special Instructions: PATIENT EDUCATION MATERIAL Instructions following a heart rhythm device implant. 1. Keep dressing DRY for 5 DAYS. You may cover the area with Saran or Cling Wrap, prior to a shower. 2. The dressing will be removed in the Device Clinic at [facility]. Absorbable sutures were used to close the wound. 3. Avoid raising the right arm above the shoulder level. 4 week restriction 4. Avoid arm movements, like backscratching, rubbing the head, or pulling on a cord. 4 weeks restriction 5. Gentle range of motion movements of the shoulder, closest to the incision should be performed to avoid a frozen shoulder. (Pendulum exercises of the shoulder) 6. The opposite arm may be used freely. 7. Avoid driving for 7 days. 8. Avoid activities such as golfing, swimming, weed whacking, lifting more than 10 pounds weight, bowling, gymnastics and weight training/lifting. (6 weeks restriction) 9. Activities such as wood chopping with an axe, pull-ups in the gymnasium, power lifting, arc-welding, being close to home induction cooktops will always be a problem. 10. Arm sling is only a reminder not to raise the arm above the head. You do not need to keep the arm completely immobilized. Your free to move the arm and use it and for normal activities. In case of any problems, please call [facility], [place], @ [phone], Attention: Device Clinic Device clinic follow-up in 5 days Follow-up with Dr. Ruiz as previously scheduled Discharge Disposition: HOME SELF-CARE
[2020-09-12] MEDS: COLCHICINE 0.6 MG EACH PO SCH (07:53)
[2020-09-12] MEDS: GABAPENTIN 300 MG CAP PO SCH (07:54)
[2020-09-12] MEDS: METOPROLOL TARTRATE 25 MG TAB PO SCH (07:54)
[2020-09-12] MEDS: hydrOXYzine HCL 10 MG TAB PO SCH (07:54)
[2020-09-12] MEDS: LINAGLIPTIN 5 MG TABLET PO SCH (07:54)
[2020-09-12] MEDS: rOPINIRole HCL 4 MG TABLET PO SCH (07:55)
[2020-09-12] MEDS: TICAGRELOR 90 MG TAB PO SCH (07:56)
[2020-09-12] MEDS ORDERED: lisinopriL 20 MG TAB PO SCH (08:00)
[2020-09-12] MEDS: DULoxetine HCL 60 MG CAPSULE.DR PO SCH (08:15)
[2020-09-12 08:39] VITALS: BP 122/64; PULSE 96
--- NOTE | 2020-09-12 10:08 | P.PN ---
Subjective Progress Note Date: 09/12/20 69-year-old female patient who underwent a pacemaker placement and we were involved in the case and the patient became hypotensive following the procedure and ICU transfer was requested. The patient is known to have cellulitis/subcutaneous tissue infection at the site of a previous pacemaker related to statin the patient had the pacemaker removed earlier. She is known to have hypertension, hyperlipidemia, hypothyroidism, diabetes mellitus type 2 and coronary artery disease with multiple stent insertion in the past. The patient was discharged from the hospital on 07/29/2020 and she completed a co urse of daptomycin. Today she was brought in again for a pacemaker insertion and I think they've indication for the procedure is sick sinus syndrome. The patient had a procedure done under general anesthesia. During the course of her procedure, received Versed 2 mg, fentanyl 100 g, ketamine 20 mg and propofol 350 mg. Patient was extubated. She was noted to have an elevated blood pressure. She was given IV metoprolol 5 mg and IV hydralazine 10 mg. In recovery, the patient was found to be unresponsive. She was given Narcan 2 mg and subsequently she recovered consciousness. Chest x-ray showed pulmonary congestion without evidence of any pneumothorax and she was given a total of 40 mg IV Lasix 1. Subsequently she became hypotensive and currently she is on Marquez-Synephrine running at 0.3 mg/kg/m. Urine output is diminished. Mucous membranes are dry. She is awake and arousable and she is following commands and answering questions appropriately. No tachycardia. Most recent blood pressure systolic in the low 100s. The blood work shows a white cell count of 5.6 hemoglobin 12.6. Electrolytes are all within normal limits. COVID-19 testing is been negative. On 09/11/2020 I'm seeing the patient for a follow-up. As mentioned earlier, the patient a chest to the intensive care unit because of some hypotension. Initially she was on Marquez-Synephrine infusion and later on she was replaced with levothyroxine which was running at low dose at 0.01 mitral respiratory failure and per minute. She ultimately was weaned off the pressors at around 5 AM this morning and currently she is off pressors. IV fluids are running in the form of normal saline at the rate of 50 mL an hour. She has an excellent urine output. Chest x-ray from today showing no complications related to the pacemaker insertion. The patient has a sinus rhythm for now. Blood work showing a white cell count of 12.1 with a hemoglobin of 11.6. Renal function is stable with a BUN of 25 and creatinine of 0.8. Chest x-ray showing some elevation of the right hemidiaphragm. No complications related to the pacemaker insertion. No pneumothorax. Left lung is essentially clear. 09/12/2020, the patient remains off pressors. Doing extremely well. Maintaining her on blood pressure. Her cardiac medications have been restarted including metoprolol and lisinopril. Her cardiac rhythm is sinus. Pacemaker pocket is dry clean and intact. No fever. No chills. IV fluids are running at the rate of KVO. In terms of blood work, no major abnormalities has been noted. The patient's has a white cell count of 5.7 with a hemoglobin of 10.8. BUN is at 21 with a creatinine of 0.75 and the sodium level is at 135 with a potassium level of 4.1. Objective - Vital Signs Vital signs: Vital Signs Temp 97.4 F L 09/12/20 04:00 Pulse 96 09/12/20 08:00 Resp 18 09/12/20 08:00 BP 122/64 09/12/20 08:00 Pulse Ox 96 09/12/20 08:00 Intake & Output 09/11/20 09/12/20 09/12/20 18:59 06:59 18:59 Intake Total 210 Output Total 165 50 500 Balance 45 -50 -500 Weight 94.4 kg Intake: IV 210 Sodium Chloride 0.9% 1, 210 000 ml @ 50 mls/hr IV . Q20H [facility] Rx#:[id number] Output: Urine 165 50 500 Other: Voiding Method Indwelling Catheter Indwelling Catheter Toilet # Voids 0 1 1 - Exam The patient appeared well nourished and normally developed. Vital signs as documented. Head exam is unremarkable. No scleral icterus or corneal arcus noted. Neck is without jugular venous distension, thyromegaly, or carotid bruits. Carotid upstrokes are brisk bilaterally. Lungs are clear to auscultation and percussion. Cardiac exam reveals the PMI to be normally sized and situated. Rhythm is regular. First and second heart sounds normal. No murmurs, rubs or gallops. Pacemaker pocket over the right anterior chest areas dry clean and i ntact. Abdominal exam reveals normal bowel sounds, no masses, no organomegaly and no aortic enlargement. Extremities are nonedematous and both femoral and pedal pulses are normal.. The patient is wearing and arms taken the right upper extremity. Examination of the skin revealed no evidence of significant rashes, suspicious appearing nevi or other concerning lesions.Neurologically, the patient is awake and alert and the patient does not have any focal neurological deficit. Cranial nerves are essentially intact. - Labs CBC & Chem 7: 09/12/20 03:11 09/12/20 03:11 Labs: Abnormal Lab Results - Last 24 Hours (Table) 09/11/20 09/11/20 09/11/20 Range/Units 11:51 13:07 16:27 RBC (3.80-5.40) m/uL Hgb (11.4-16.0) gm/dL Hct (34.0-46.0) % RDW (11.5-15.5) % Plt Count (150-450) k/uL Sodium (137-145) mmol/L BUN (7-17) mg/dL POC Glucose (mg/dL) 58 L 137 H 181 H (75-99) mg/dL 09/11/20 09/12/20 09/12/20 Range/Units 20:44 03:11 03:11 RBC 3.74 L (3.80-5.40) m/uL Hgb 10.8 L (11.4-16.0) gm/dL Hct 31.8 L (34.0-46.0) % RDW 17.2 H (11.5-15.5) % Plt Count 127 L (150-450) k/uL Sodium 135 L (137-145) mmol/L BUN 21 H (7-17) mg/dL POC Glucose (mg/dL) 134 H (75-99) mg/dL 09/12/20 Range/Units 06:58 RBC (3.80-5.40) m/uL Hgb (11.4-16.0) gm/dL Hct (34.0-46.0) % RDW (11.5-15.5) % Plt Count (150-450) k/uL Sodium (137-145) mmol/L BUN (7-17) mg/dL POC Glucose (mg/dL) 73 L (75-99) mg/dL Assessment and Plan Plan: 1 hypotension, likely drug induced along with a component of intravascular volume depletion. The patient was given a combination of narcotics during the procedure and following that she was given metoprolol and hydralazine and diuretics in the form of Lasix. Overnight, the patient required pressors. She initially she was on Marquez-Synephrine, later on levo fed and currently she is off pressors. The current mean arterial pressures around 76 and she has been started on her beta blockers and hydralazine. Chest x-ray showed occasional ventricular pacemaker insertion. No pneumothorax. No signs of any infection. On 09/12/2020, the patient is being seen in follow-up. She is hemodynamically stable. I think she is ready to get discharged home. Her blood pressure is completely normalized and she has been started back on her cardiac medication. Pacemaker is in place. No complications related to the pacemaker insertion. No signs of any infection. Surgical wound site is dry clean and intact. 2 altered mental status, likely drug-induced, recovered and the neurologic status is currently inactive in stable 3 pacemaker insertion, postop day #2 4 history of an infected pacemaker removal back in July 2020 and the patient completed the course of antibiotics with daptomycin 5 coronary artery disease with previous history of coronary stenting 6 diabetes mellitus 7 history of hypertension 8 hyperlipidemia 9 osteoarthritis 10 KATI 11 peripheral neuropathy 12 normal pressure hydrocephalus 13 bilateral macular degeneration 14 irritable bowel syndrome 15 questionable history of narcolepsy maintain on modafinil an outpatient basis 200 mg on a daily basis. 16 chronic back pain Plan Resume home medications Ambulate Blood work was noted May discharge home if cleared by cardiology
[2020-09-12 11:11] LABS: Glucose,Whole Blood 50 mg/dL (75-99)
[2020-09-12 11:37] LABS: Glucose,Whole Blood 82 mg/dL (75-99)
[2020-09-12] MEDS ORDERED: metFORMIN 500 MG TAB PO SCH (21:00)
== END 2020-09-12 12:09 | disposition home or self-care (01) | DRG 242 ==
LOC: CATHEP 08:27 → 2SICU 13:22 → CATHEP 13:22 → 2SICU 15:30
PROVIDERS: ADMIT Internal Medicine Clinical Cardiac Electrophysiology; ATTEND Internal Medicine Clinical Cardiac Electrophysiology
PROC: 3E033XZ Introduction of Vasopressor into Peripheral Vein, Percutaneous Approach (ICD-10-PCS; 2020-09-10)
PROC: 02HK3JZ Insertion of Pacemaker Lead into Right Ventricle, Percutaneous Approach (ICD-10-PCS; principal; 2020-09-10 10:00)
PROC: 02H63JZ Insertion of Pacemaker Lead into Right Atrium, Percutaneous Approach (ICD-10-PCS; principal; 2020-09-10 10:00)
PROC: 0JH606Z Insertion of Pacemaker, Dual Chamber into Chest Subcutaneous Tissue and Fascia, Open Approach (ICD-10-PCS; principal; 2020-09-10 10:00)
DX: I49.5 Sick sinus syndrome (principal); G92 Toxic encephalopathy; I50.32 Chronic diastolic (congestive) heart failure; G91.2 (Idiopathic) normal pressure hydrocephalus; E03.9 Hypothyroidism, unspecified; E11.9 Type 2 diabetes mellitus without complications; E78.5 Hyperlipidemia, unspecified; G25.81 Restless legs syndrome; I11.0 Hypertensive heart disease with heart failure; I25.10 Atherosclerotic heart disease of native coronary artery without angina pectoris; I25.2 Old myocardial infarction; G47.33 Obstructive sleep apnea (adult) (pediatric); K58.9 Irritable bowel syndrome, unspecified; G47.419 Narcolepsy without cataplexy; H35.30 Unspecified macular degeneration; G89.29 Other chronic pain; M54.9 Dorsalgia, unspecified; I95.2 Hypotension due to drugs; T41.205A Adverse effect of unspecified general anesthetics, initial encounter; R29.818 Other symptoms and signs involving the nervous system; Z95.5 Presence of coronary angioplasty implant and graft; Z98.51 Tubal ligation status; Z20.822 Contact with and (suspected) exposure to COVID-19; Z79.02 Long term (current) use of antithrombotics/antiplatelets; Z79.4 Long term (current) use of insulin; Z79.82 Long term (current) use of aspirin; Z79.890 Hormone replacement therapy; Z79.899 Other long term (current) drug therapy; Z82.49 Family history of ischemic heart disease and other diseases of the circulatory system; Z87.442 Personal history of urinary calculi; Z80.42 Family history of malignant neoplasm of prostate; Z88.0 Allergy status to penicillin
CPT/HCPCS: 33208; 71045; 80048; 85025; 85027; 87635; 93306

== ENCOUNTER 2020-11-11 13:32 | Emergency (ER) | payer MEDICARE, OTHER ==
[2020-11-11 13:46] VITALS: BP 125/82; PULSE 79; RESP 18; TEMP 98.4
[2020-11-11] MEDS ORDERED: MORPHINE SULFATE 4 MG/ML SYRINGE IM STA (14:05)
[2020-11-11] MEDS ORDERED: KETOROLAC 15 MG/ML 1 ML VIAL IM STA (14:05)
--- NOTE | 2020-11-11 14:07 | ED ---
General Adult HPI - General Chief complaint: Recheck/Abnormal Lab/Rx Stated complaint: Groin Pain Time Seen by Provider: 11/11/20 13:48 Source: patient, RN notes reviewed, old records reviewed Mode of arrival: wheelchair Limitations: no limitations - History of Present Illness Initial comments: 70-year-old female presenting for evaluation of anterior thigh pain and hip pain. Patient has had ongoing symptoms for approximately one year. She is scheduled for an outpatient MRI of the hip. She is followed both the primary care physician, her pain management physician and orthopedics on multiple occasions. She denies any recent injury. Denies fever. Denies any changing in the character of her symptoms. She states her OxyContin is not significantly helping her pain. Denies any symptoms below the knee. No abdominal pain. - Related Data Home Medications Medication Instructions Recorded Confirmed Aspirin [Adult Low Dose Aspirin EC] 81 mg PO HS 08/11/17 09/10/20 Colchicine [Colcrys] 0.6 mg PO DAILY 08/11/17 09/10/20 Lidocaine 5% Oint [Xylocaine 5% 1 applic TOPICAL HS PRN 08/11/17 09/07/20 Oint] Nitroglycerin Sl Tabs [Nitrostat] 0.4 mg SL Q5M PRN 08/11/17 09/07/20 Ticagrelor [Brilinta] 90 mg PO BID 08/11/17 09/10/20 Ascorbic Acid [Vitamin C] 500 mg PO DAILY 12/27/19 09/10/20 DULoxetine HCL [Cymbalta] 60 mg PO BID 12/27/19 09/10/20 Desloratadine [Clarinex] 5 mg PO DAILY 12/27/19 09/10/20 Ezetimibe [Zetia] 10 mg PO HS 12/27/19 09/10/20 Fluticasone Nasal [place] [Flonase 2 spr EA NOSTRIL DAILY PRN 12/27/19 09/10/20 Nasal [place]] Insulin Lispro [humaLOG Kwikpen] 30 unit SQ AC-TID 12/27/19 09/10/20 Magnesium Oxide [Mag-Ox] 400 mg PO BID 12/27/19 09/10/20 Multivitamins, Thera [Multivitamin 1 tab PO DAILY 12/27/19 09/10/20 (formulary)] hydrOXYzine HCL [Atarax] 10 mg PO DAILY 12/27/19 09/10/20 modafiniL [Provigil] 200 mg PO HS 12/27/19 09/10/20 rOPINIRole HCL [Requip] 4 mg PO TID 12/27/19 09/10/20 sitaGLIPtin PHOS/metFORMIN HCL 1 tab PO BID 12/27/19 09/10/20 [Janumet 50-1,000 mg Tablet] Furosemide [Lasix] 20 - 40 mg PO DAILY PRN 02/07/20 09/10/20 Lisinopril [Zestril] 20 mg PO DAILY 02/07/20 09/10/20 Gabapentin 300 mg PO BID 07/29/20 09/10/20 HYDROcodone/APAP 10-325MG [[place] 1 tab PO BID 07/29/20 09/10/20 10-325] Insulin Detemir [Levemir Flextouch] 35 units SQ HS 07/29/20 09/10/20 Levothyroxine Sodium [Levoxyl] 125 mcg PO DAILY 07/29/20 09/10/20 Metoprolol Tartrate [Lopressor] 25 mg PO BID 07/29/20 09/10/20 Previous Rx's Medication Instructions Recorded Acetaminophen Tab [Tylenol] 650 mg PO Q6HR PRN tab 08/02/20 Allergies Allergy/AdvReac Type Severity Reaction Status Date / Time Penicillins Allergy Rash/Hives Verified 11/11/20 13:46 Review of Systems ROS Statement: Those systems with pertinent positive or pertinent negative responses have been documented in the HPI. ROS Other: All systems not noted in ROS Statement are negative. Past Medical History Past Medical History: Coronary Artery Disease (CAD), Chest Pain / Angina, Heart Failure, Diabetes Mellitus, Eye Disorder, GERD/Reflux, Hyperlipidemia, Hypertension, Myocardial Infarction (MA), Osteoarthritis (OA), Sleep Apnea/CPAP/BIPAP, Thyroid Disorder Additional Past Medical History / Comment(s): hx hypotension/cardiogenic shock, dizziness, junctional rhythm. Normal pressure hydrocephalus, neuropathy bilateral feet/toes, chronic back pain, RLS, embedded kidney stones, bilateral macular degeneration, IBS, narcolepsy, gout, SEE DR MORALES'S HISTORY AND PHYSICAL FOR CARDIAC HISTORY. PACEMAKER SITE INFECTED Last Myocardial Infarction Date:: 12/27/19 History of Any Multi-Drug Resistant Organisms: None Reported Past Surgical History: Back Surgery, EPS, Heart Catheterization With Stent, Joint Replacement, Orthopedic Surgery, Pacemaker, Tubal Ligation Additional Past Surgical History / Comment(s): 4 cardiac stents, low back surgery, brain shunt, colonoscopy, TOTAL LEFT KNEE. pacemaker removed 07/30/20 due to infection Past Anesthesia/Blood Transfusion Reactions: Motion Sickness, Postoperative Nausea & Vomiting (PONV) Date of Last Stent Placement:: 12/27/19 Type of Cardiac Device: Permanent Pacemaker Device Placement Date:: MAR 2020 Past Psychological History: Anxiety Smoking Status: Never smoker Past Alcohol Use History: None Reported Past Drug Use History: None Reported - Past Family History Father History Unknown: Yes Family Medical History: Congestive Heart Failure (CHF), Hypertension Mother History Unknown: Yes Family Medical History: Congestive Heart Failure (CHF), Hypertension Brother(s) Family Medical History: Cancer, Myocardial Infarction (MA) Additional Family Medical History / Comment(s): One brother had an MA. Another brother had prostate cancer. General Exam Limitations: no limitations General appearance: alert, in no apparent distress Head exam: Present: atraumatic, normocephalic Eye exam: Present: normal appearance, PERRL ENT exam: Present: normal exam Neck exam: Present: normal inspection. Absent: tenderness, meningismus Cardiovascular Exam: Present: regular rate, normal rhythm GI/Abdominal exam: Present: soft. Absent: distended, tenderness, guarding Extremities exam: Present: full ROM (Full range of motion of the left hip, distal pulses intact, no deformity.) Course Vital Signs 11/11/20 13:43 Temperature 98.4 F Pulse Rate 79 Respiratory 18 Rate Blood Pressure 125/82 O2 Sat by Pulse 99 Oximetry Medical Decision Making - Medical Decision Making 70-year-old female with chronic pain in the left anterior thigh and hip. Patient is currently undergoing outpatient management she is presenting with need for increased pain control. No alarming features on history or physical exam. I believe she can continue to follow as an outpatient including scheduled MRI and follow with pain management and orthopedics. She's given Toradol and morphine in the emergency department. She we'll continue to take her prescribed pain medication at home. Disposition Clinical Impression: Chronic pain Disposition: HOME SELF-CARE Condition: Fair Instructions (If sedation given, give patient instructions): Chronic Pain (ED) Is patient prescribed a controlled substance at d/c from ED?: No Referrals: Medhat Asif DO [Primary Care Provider] - 1-2 days Time of Disposition: 14:06
== END 2020-11-11 14:23 | disposition home or self-care (01) ==
LOC: EC 13:32
DX: G89.29 Other chronic pain (principal); M25.552 Pain in left hip; M79.652 Pain in left thigh; I11.0 Hypertensive heart disease with heart failure; I50.9 Heart failure, unspecified; E78.5 Hyperlipidemia, unspecified; I25.10 Atherosclerotic heart disease of native coronary artery without angina pectoris; E11.40 Type 2 diabetes mellitus with diabetic neuropathy, unspecified; K21.9 Gastro-esophageal reflux disease without esophagitis; I25.2 Old myocardial infarction; M19.90 Unspecified osteoarthritis, unspecified site; G47.30 Sleep apnea, unspecified; F41.9 Anxiety disorder, unspecified; Z79.4 Long term (current) use of insulin; Z79.82 Long term (current) use of aspirin; Z88.0 Allergy status to penicillin
CPT/HCPCS: 99283; 96372 ×2; J2270; J1885

== ENCOUNTER 2021-01-17 20:23 | Inpatient (IN) | payer MEDICARE, OTHER ==
[2021-01-17] MEDS ORDERED: SODIUM CHLORIDE 0.9% 1,000 ML IV STA ×3 (21:36→23:29)
--- NOTE | 2021-01-17 21:36 | ED ---
Weakness HPI - General Chief complaint: Dizziness Stated complaint: Syncope Time Seen by Provider: 01/17/21 21:21 Source: patient, EMS, RN notes reviewed, old records reviewed Mode of arrival: EMS Limitations: no limitations - History of Present Illness Initial comments: This is a 70-year-old female to the ER for evaluation today. Patient resents today for evaluation of severe weakness patient states she cannot get up move, not feeling well not able to eat or drink. Denies fever nausea vomiting or diarrhea. Patient of recent inpatient hospitalization and outpatient rehabilitation. Patient states she has not for recovered. Patient denying any chest pain, she does have shortness of breath MD Complaint: generalized weakness, lack of energy, difficulty walking -: days(s) Location: generalized Severity: moderate Severity scale (1-10): 6 Consistency: constant Improves with: none Worsens with: none Context: recent illness, history of similar Associated Symptoms: confusion, loss of appetite, nausea/vomiting, shortness of breath - Related Data Home Medications Medication Instructions Recorded Confirmed Colchicine [Colcrys] 0.6 mg PO DAILY 08/11/17 01/17/21 Nitroglycerin Sl Tabs [Nitrostat] 0.4 mg SL Q5M PRN 08/11/17 01/17/21 Ticagrelor [Brilinta] 90 mg PO BID 08/11/17 01/17/21 DULoxetine HCL [Cymbalta] 60 mg PO BID 12/27/19 01/17/21 Desloratadine [Clarinex] 5 mg PO DAILY 12/27/19 01/17/21 Ezetimibe [Zetia] 10 mg PO HS 12/27/19 01/17/21 Insulin Lispro [humaLOG Kwikpen] See Protocol SQ AC-TID 12/27/19 01/17/21 Insulin Detemir [Levemir Flextouch 35 units SQ HS 07/29/20 01/17/21 Pen] Levothyroxine Sodium [Levoxyl] 125 mcg PO DAILY 07/29/20 01/17/21 Lisinopril [Prinivil] 10 mg PO DAILY 01/17/21 01/17/21 Metoprolol Tartrate [Lopressor] 50 mg PO BID 01/17/21 01/17/21 oxyCODONE-APAP 10-325MG [Percocet 1 tab PO BID PRN 01/17/21 01/17/21 10-325 mg] Allergies Allergy/AdvReac Type Severity Reaction Status Date / Time Penicillins Allergy Rash/Hives Verified 01/17/21 22:38 Review of Systems ROS Statement: Those systems with pertinent positive or pertinent negative responses have been documented in the HPI. ROS Other: All systems not noted in ROS Statement are negative. Past Medical History Past Medical History: Coronary Artery Disease (CAD), Chest Pain / Angina, Heart Failure, Diabetes Mellitus, Eye Disorder, GERD/Reflux, Hyperlipidemia, Hypertension, Myocardial Infarction (DE), Osteoarthritis (OA), Sleep Apnea/CPAP/BIPAP, Thyroid Disorder Additional Past Medical History / Comment(s): hx hypotension/cardiogenic shock, dizziness, junctional rhythm. Normal pressure hydrocephalus, neuropathy bilateral feet/toes, chronic back pain, RLS, embedded kidney stones, bilateral macular degeneration, IBS, narcolepsy, gout, SEE DR MORALES'S HISTORY AND PHYSICAL FOR CARDIAC HISTORY. PACEMAKER SITE INFECTED Last Myocardial Infarction Date:: 12/27/19 History of Any Multi-Drug Resistant Organisms: None Reported Past Surgical History: Back Surgery, EPS, Heart Catheterization With Stent, Joint Replacement, Orthopedic Surgery, Pacemaker, Tubal Ligation Additional Past Surgical History / Comment(s): 4 cardiac stents, low back surgery, brain shunt, colonoscopy, TOTAL LEFT KNEE. pacemaker removed 07/30/20 due to infection, Pacemaker placed in August 2020, Past Anesthesia/Blood Transfusion Reactions: Motion Sickness, Postoperative Nausea & Vomiting (PONV) Date of Last Stent Placement:: 12/27/19 Type of Cardiac Device: Permanent Pacemaker Device Placement Date:: MAR 2020 Past Psychological History: Anxiety Smoking Status: Never smoker Past Alcohol Use History: Occasional Past Drug Use History: None Reported - Past Family History Father History Unknown: Yes Family Medical History: Congestive Heart Failure (CHF), Hypertension Mother History Unknown: Yes Family Medical History: Congestive Heart Failure (CHF), Hypertension Brother(s) Family Medical History: Cancer, Myocardial Infarction (DE) Additional Family Medical History / Comment(s): One brother had an DE. Another brother had prostate cancer. General Exam Limitations: no limitations General appearance: alert, in no apparent distress, anxious Head exam: Present: atraumatic, normocephalic, normal inspection Eye exam: Present: normal appearance, PERRL, EOMI. Absent: scleral icterus, conjunctival injection, periorbital swelling ENT exam: Present: normal exam, mucous membranes dry Neck exam: Present: normal inspection. Absent: tenderness, meningismus, lymphadenopathy Respiratory exam: Present: normal lung sounds bilaterally. Absent: respiratory distress, wheezes, rales, rhonchi, stridor Cardiovascular Exam: Present: normal rhythm, tachycardia, normal heart sounds. Absent: systolic murmur, diastolic murmur, rubs, gallop, clicks GI/Abdominal exam: Present: soft, normal bowel sounds. Absent: distended, tenderness, guarding, rebound, rigid Extremities exam: Present: normal inspection, full ROM, normal capillary refill. Absent: tenderness, pedal edema, joint swelling, calf tenderness Back exam: Present: normal inspection Neurological exam: Present: alert, oriented X3, CN II-XII intact Psychiatric exam: Present: normal affect, normal mood Skin exam: Present: warm, dry, intact, normal color. Absent: rash Course Vital Signs 01/17/21 01/17/21 01/17/21 20:31 21:45 23:20 Temperature 98.7 F Pulse Rate 109 H 102 H 97 Respiratory 18 18 18 Rate Blood Pressure 186/97 140/97 158/108 O2 Sat by Pulse 97 96 99 Oximetry - Reevaluation(s) Reevaluation #1: 01/18/21 00:10 Medical records reviewed Reevaluation #2: 01/18/21 00:10 Patient remains altered is able to rest very weak Reevaluation #3: 01/18/21 00:10 Family informed of results and questions answered - Consultations Consultation #1: Spoke with H will admit this patient EKG Findings - EKG Comments: EKG Findings:: EKG is sinus tachycardia 102 GA 134 QRS 92 QTC 445 Medical Decision Making - Medical Decision Making 70 female with significant weakness. Patient found a profoundly elevated blood sugar treated significantly here in the emergency room. Persistent dehydration weakness and hyperglycemia. Be admitted for further evaluation management and likely persistent need for placement - Lab Data Result diagrams: 01/17/21 21:45 01/17/21 21:45 Lab Results 01/17/21 01/17/21 01/17/21 Range/Units 21:45 21:45 21:45 WBC 14.5 H (3.8-10.6) k/uL RBC 5.19 (3.80-5.40) m/uL Hgb 15.0 (11.4-16.0) gm/dL Hct 44.1 (34.0-46.0) % MCV 85.1 (80.0-100.0) fL MCH 28.9 (25.0-35.0) pg MCHC 34.0 (31.0-37.0) g/dL RDW 15.6 H (11.5-15.5) % Plt Count 231 (150-450) k/uL MPV 8.8 Neutrophils % 75 % Lymphocytes % 19 % Monocytes % 5 % Eosinophils % 0 % Basophils % 0 % Neutrophils # 10.8 H (1.3-7.7) k/uL Lymphocytes # 2.7 (1.0-4.8) k/uL Monocytes # 0.8 (0-1.0) k/uL Eosinophils # 0.0 (0-0.7) k/uL Basophils # 0.0 (0-0.2) k/uL PT (9.0-12.0) sec INR (<1.2) APTT (22.0-30.0) sec Sodium 128 L (137-145) mmol/L Potassium 5.2 H (3.5-5.1) mmol/L Chloride 89 L (98-107) mmol/L Carbon Dioxide 25 (22-30) mmol/L Anion Gap 14 mmol/L BUN 25 H (7-17) mg/dL Creatinine 0.74 (0.52-1.04) mg/dL Est GFR (CKD-EPI)AfAm >90 (>60 ml/min/1.73 sqM) Est GFR (CKD-EPI)NonAf 82 (>60 ml/min/1.73 sqM) Glucose 753 H* (74-99) mg/dL POC Glucose (mg/dL) (75-99) mg/dL POC Glu [employer] Pilot Supervisor ID Plasma Lactic Acid Quang (0.7-2.0) mmol/L Calcium 10.4 H (8.4-10.2) mg/dL Phosphorus 4.4 (2.5-4.5) mg/dL Magnesium 1.9 (1.6-2.3) mg/dL Total Bilirubin 0.5 (0.2-1.3) mg/dL AST 26 (14-36) U/L ALT 31 (4-34) U/L Alkaline Phosphatase 144 H (38-126) U/L Troponin I (0.000-0.034) ng/mL NT-Pro-B Natriuret Pep pg/mL Total Protein 7.5 (6.3-8.2) g/dL Albumin 4.5 (3.5-5.0) g/dL TSH 6.200 H (0.465-4.680) mIU/L Urine Color Colorless Urine Appearance Clear (Clear) Urine pH 5.5 (5.0-8.0) Ur Specific [place] 1.028 (1.001-1.035) Urine Protein Negative (Negative) Urine Glucose (UA) 4+ H (Negative) Urine Ketones Negative (Negative) Urine Blood Moderate H (Negative) Urine Nitrite Negative (Negative) Urine Bilirubin Negative (Negative) Urine Urobilinogen <2.0 (<2.0) mg/dL Ur Leukocyte Esterase Negative (Negative) Urine RBC 42 H (0-5) /hpf Urine WBC 4 (0-5) /hpf Ur Squamous Epith Cells 1 (0-4) /hpf Amorphous Sediment Rare H (None) /hpf Urine Bacteria Rare H (None) /hpf 01/17/21 01/17/21 01/17/21 Range/Units 21:45 21:45 21:45 WBC (3.8-10.6) k/uL RBC (3.80-5.40) m/uL Hgb (11.4-16.0) gm/dL Hct (34.0-46.0) % MCV (80.0-100.0) fL MCH (25.0-35.0) pg MCHC (31.0-37.0) g/dL RDW (11.5-15.5) % Plt Count (150-450) k/uL MPV Neutrophils % % Lymphocytes % % Monocytes % % Eosinophils % % Basophils % % Neutrophils # (1.3-7.7) k/uL Lymphocytes # (1.0-4.8) k/uL Monocytes # (0-1.0) k/uL Eosinophils # (0-0.7) k/uL Basophils # (0-0.2) k/uL PT (9.0-12.0) sec INR (<1.2) APTT (22.0-30.0) sec Sodium (137-145) mmol/L Potassium (3.5-5.1) mmol/L Chloride (98-107) mmol/L Carbon Dioxide (22-30) mmol/L Anion Gap mmol/L BUN (7-17) mg/dL Creatinine (0.52-1.04) mg/dL Est GFR (CKD-EPI)AfAm (>60 ml/min/1.73 sqM) Est GFR (CKD-EPI)NonAf (>60 ml/min/1.73 sqM) Glucose (74-99) mg/dL POC Glucose (mg/dL) (75-99) mg/dL POC Glu [employer] Pilot Supervisor ID Plasma Lactic Acid Quang 4.1 H* (0.7-2.0) mmol/L Calcium (8.4-10.2) mg/dL Phosphorus (2.5-4.5) mg/dL Magnesium (1.6-2.3) mg/dL Total Bilirubin (0.2-1.3) mg/dL AST (14-36) U/L ALT (4-34) U/L Alkaline Phosphatase (38-126) U/L Troponin I 0.027 (0.000-0.034) ng/mL NT-Pro-B Natriuret Pep 1150 pg/mL Total Protein (6.3-8.2) g/dL Albumin (3.5-5.0) g/dL TSH (0.465-4.680) mIU/L Urine Color Urine Appearance (Clear) Urine pH (5.0-8.0) Ur Specific [place] (1.001-1.035) Urine Protein (Negative) Urine Glucose (UA) (Negative) Urine Ketones (Negative) Urine Blood (Negative) Urine Nitrite (Negative) Urine Bilirubin (Negative) Urine Urobilinogen (<2.0) mg/dL Ur Leukocyte Esterase (Negative) Urine RBC (0-5) /hpf Urine WBC (0-5) /hpf Ur Squamous Epith Cells (0-4) /hpf Amorphous Sediment (None) /hpf Urine Bacteria (None) /hpf 01/17/21 01/17/21 Range/Units 22:18 23:28 WBC (3.8-10.6) k/uL RBC (3.80-5.40) m/uL Hgb (11.4-16.0) gm/dL Hct (34.0-46.0) % MCV (80.0-100.0) fL MCH (25.0-35.0) pg MCHC (31.0-37.0) g/dL RDW (11.5-15.5) % Plt Count (150-450) k/uL MPV Neutrophils % % Lymphocytes % % Monocytes % % Eosinophils % % Basophils % % Neutrophils # (1.3-7.7) k/uL Lymphocytes # (1.0-4.8) k/uL Monocytes # (0-1.0) k/uL Eosinophils # (0-0.7) k/uL Basophils # (0-0.2) k/uL PT 10.3 (9.0-12.0) sec INR 1.0 (<1.2) APTT 19.9 L (22.0-30.0) sec Sodium (137-145) mmol/L Potassium (3.5-5.1) mmol/L Chloride (98-107) mmol/L Carbon Dioxide (22-30) mmol/L Anion Gap mmol/L BUN (7-17) mg/dL Creatinine (0.52-1.04) mg/dL Est GFR (CKD-EPI)AfAm (>60 ml/min/1.73 sqM) Est GFR (CKD-EPI)NonAf (>60 ml/min/1.73 sqM) Glucose (74-99) mg/dL POC Glucose (mg/dL) 577 H (75-99) mg/dL POC Glu [employer] Pilot Supervisor ID Raghavendra Turner Plasma Lactic Acid Quang (0.7-2.0) mmol/L Calcium (8.4-10.2) mg/dL Phosphorus (2.5-4.5) mg/dL Magnesium (1.6-2.3) mg/dL Total Bilirubin (0.2-1.3) mg/dL AST (14-36) U/L ALT (4-34) U/L Alkaline Phosphatase (38-126) U/L Troponin I (0.000-0.034) ng/mL NT-Pro-B Natriuret Pep pg/mL Total Protein (6.3-8.2) g/dL Albumin (3.5-5.0) g/dL TSH (0.465-4.680) mIU/L Urine Color Urine Appearance (Clear) Urine pH (5.0-8.0) Ur Specific [place] (1.001-1.035) Urine Protein (Negative) Urine Glucose (UA) (Negative) Urine Ketones (Negative) Urine Blood (Negative) Urine Nitrite (Negative) Urine Bilirubin (Negative) Urine Urobilinogen (<2.0) mg/dL Ur Leukocyte Esterase (Negative) Urine RBC (0-5) /hpf Urine WBC (0-5) /hpf Ur Squamous Epith Cells (0-4) /hpf Amorphous Sediment (None) /hpf Urine Bacteria (None) /hpf - Radiology Data Radiology results: report reviewed (Chest x-rays negative for acute disease), image reviewed Critical Care Time Critical Care Time: Yes Total Critical Care Time: 31 Disposition Clinical Impression: Acute kidney injury, Hyperglycemia, Dehydration, Weakness Disposition: ADMITTED IP TO THIS [facility] Condition: Fair Is patient prescribed a controlled substance at d/c from ED?: No Referrals: Medhat Asif DO [Primary Care Provider] - 1-2 days
[2021-01-17 22:11] LABS: Basophils % (A) 0 %; Eosinophils % (A) 0 %; HCT 44.1 % (34.0-46.0); Lymphocytes # (A) 2.7 k/uL (1.0-4.8); Lymphocytes % (A) 19 %; MCH 28.9 pg (25.0-35.0); MCV 85.1 fL (80.0-100.0); Mean Platelet Volume 8.8; Monocytes # (A) 0.8 k/uL (0-1.0); Monocytes % (A) 5 %; Neutrophils # (A) 10.8 k/uL (1.3-7.7); Neutrophils % (A) 75 %; Platelet Count 231 k/uL (150-450); RBC 5.19 m/uL (3.80-5.40); RDW 15.6 % (11.5-15.5); WBC 14.5 k/uL (3.8-10.6)
[2021-01-17 22:19] LABS: ALT 31 U/L (4-34); AST 26 U/L (14-36); African American GFR (CKD) >90 (>60 ml/min/1.73 sqM); Albumin 4.5 g/dL (3.5-5.0); Alkaline Phosphatase 144 U/L (38-126); Anion Gap 14 mmol/L; Blood Urea Nitrogen 25 mg/dL (7-17); Calcium 10.4 mg/dL (8.4-10.2); Carbon Dioxide 25 mmol/L (22-30); Chloride 89 mmol/L (98-107); Magnesium 1.9 mg/dL (1.6-2.3); Non-African American GFR(CKD) 82 (>60 ml/min/1.73 sqM); Phosphorus 4.4 mg/dL (2.5-4.5); Potassium 5.2 mmol/L (3.5-5.1); Sodium 128 mmol/L (137-145); Total Bilirubin 0.5 mg/dL (0.2-1.3); Total Protein 7.5 g/dL (6.3-8.2)
[2021-01-17 22:27] LABS: Glucose 753 mg/dL (74-99)
[2021-01-17 22:34] LABS: Amorphous Sediment,Urine Rare /hpf; Appearance,Urine Clear (Clear); Bacteria,Urine Rare /hpf; Bilirubin,Urine Negative (Negative); Blood,Urine Moderate (Negative); Color,Urine Colorless; Glucose,Urine (UA) 4+ (Negative); Ketones,Urine Negative (Negative); Leukocyte Esterase,Urine Negative (Negative); Nitrite,Urine Negative (Negative); PH, Urine 5.5 (5.0-8.0); Protein,Urine Negative (Negative); RBC,Urine 42 /hpf (0-5); Specific Gravity,Urine 1.028 (1.001-1.035); Squamous Epithelial Cell,Urine 1 /hpf (0-4); Urobilinogen,Urine <2.0 mg/dL (<2.0); WBC,Urine 4 /hpf (0-5)
--- NOTE | 2021-01-17 22:50 | XR ---
EXAMINATION TYPE: XR chest 2V DATE OF EXAM: 01/17/2021 COMPARISON: 09/11/2020 HISTORY: Weakness TECHNIQUE: FINDINGS: Heart and mediastinum are normal. Lungs are clear. Diaphragm is normal. Bony thorax appears normal. There is right axillary pacemaker. There are chest leads. Costophrenic angles are clear. IMPRESSION: No active cardiopulmonary disease. Normal heart. No change.
[2021-01-17 22:58] LABS: Prothrombin Time 10.3 sec (9.0-12.0)
[2021-01-17 23:02] LABS: Partial Thromboplastin Time 19.9 sec (22.0-30.0)
[2021-01-17] MEDS ORDERED: INSULIN REGULAR 100 UNIT/ML VIAL (IM/SQ) SQ ONE (23:29)
[2021-01-17] MEDS ORDERED: LORazepam 2 MG/ML INJ IV STA (23:29)
[2021-01-17] MEDS ORDERED: INSULIN REGULAR 100 UNIT/ML VIAL (IV) IV ONE (23:29)
[2021-01-17] MEDS ORDERED: SODIUM CHLORIDE 0.9% 500 ML 500 ML IV STA (23:29)
[2021-01-17 23:40] LABS: Glucose,Whole Blood 577 mg/dL (75-99)
[2021-01-18] MEDS ORDERED: MORPHINE SULFATE 4 MG/ML SYRINGE IV PRN (00:07)
[2021-01-18] MEDS ORDERED: NALOXONE 0.4 MG/ML 1 ML VIAL IV PRN (00:07)
[2021-01-18] MEDS ORDERED: ONDANSETRON 4 MG/2 ML VIAL IVP PRN (00:07)
[2021-01-18] MEDS ORDERED: ACETAMINOPHEN TAB 325 MG TAB PO PRN (00:07)
[2021-01-18 00:36] LABS: Glucose,Whole Blood 357 mg/dL (75-99)
[2021-01-18] MEDS: SODIUM CHLORIDE 0.9% 1,000 ML IV SCH ×4 (00:38→21:50)
[2021-01-18] MEDS ORDERED: diphenhydrAMINE 50 MG/ML 1 ML VIAL IVP STA (00:50)
[2021-01-18] MEDS ORDERED: HALOPERIDOL LACTATE 5 MG/ML 1 ML VIAL IM STA (01:01)
[2021-01-18] MEDS ORDERED: PHENobarbital SODIUM 130 MG/ML 1 ML VIAL IV ONE (01:24)
[2021-01-18 01:52] LABS: Glucose,Whole Blood 244 mg/dL (75-99)
[2021-01-18] MEDS ORDERED: SODIUM CHLORIDE 0.9% 1,000 ML IV ONE (02:27)
[2021-01-18 02:36] LABS: Glucose,Whole Blood 264 mg/dL (75-99)
[2021-01-18 02:50] LABS: Basophils % (A) 0 %; Eosinophils % (A) 0 %; HCT 39.2 % (34.0-46.0); HGB 12.6 gm/dL (11.4-16.0); Lymphocytes % (A) 23 %; MCH 28.3 pg (25.0-35.0); MCHC 32.1 g/dL (31.0-37.0); MCV 88.4 fL (80.0-100.0); Mean Platelet Volume 8.3; Monocytes # (A) 0.8 k/uL (0-1.0); Monocytes % (A) 6 %; Neutrophils # (A) 9.1 k/uL (1.3-7.7); Neutrophils % (A) 68 %; Platelet Count 182 k/uL (150-450); RBC 4.44 m/uL (3.80-5.40); RDW 15.2 % (11.5-15.5); WBC 13.3 k/uL (3.8-10.6)
[2021-01-18 03:16] LABS: VBG PH 7.41 (7.31-7.41)
--- NOTE | 2021-01-18 03:26 | CT ---
EXAMINATION TYPE: CT brain wo con DATE OF EXAM: 01/18/2021 COMPARISON: 08/20/2017 HISTORY: fall CT DLP: 1158.4 mGycm Automated exposure control for dose reduction was used. There is a right-sided ventricular shunt catheter with the tip in the medial aspect right lateral sandy tricle. There is no mass effect nor midline shift. There is no sign of intracranial hemorrhage. The c alvarium is intact. There is cerebral cortical atrophy. Skull base is intact. IMPRESSION: Cerebral atrophy. No acute intracranial abnormality. No significant change compared to old exam. Ther e is mild hydrocephalus without change compared to old exam.
[2021-01-18 03:27] LABS: Acetaminophen <10.0 ug/mL; Salicylate <1.0 mg/dL
[2021-01-18 03:27] LABS: ALT 27 U/L (4-34); AST 41 U/L (14-36); African American GFR (CKD) >90 (>60 ml/min/1.73 sqM); Albumin 3.9 g/dL (3.5-5.0); Alkaline Phosphatase 114 U/L (38-126); Anion Gap 8 mmol/L; Blood Urea Nitrogen 20 mg/dL (7-17); Calcium 9.2 mg/dL (8.4-10.2); Carbon Dioxide 26 mmol/L (22-30); Chloride 104 mmol/L (98-107); Creatine Kinase 344 U/L (30-135); Glucose 284 mg/dL (74-99); Magnesium 1.7 mg/dL (1.6-2.3); Non-African American GFR(CKD) 89 (>60 ml/min/1.73 sqM); Phosphorus 3.9 mg/dL (2.5-4.5); Sodium 138 mmol/L (137-145); Total Bilirubin 0.5 mg/dL (0.2-1.3); Total Protein 6.7 g/dL (6.3-8.2)
--- NOTE | 2021-01-18 03:32 | CT ---
EXAMINATION TYPE: CT abdomen pelvis w con DATE OF EXAM: 01/18/2021 COMPARISON: None HISTORY: fall CT DLP: 2302.4 mGycm Automated exposure control for dose reduction was used. CONTRAST: Performed with IV Contrast, patient injected with 100 mL of Isovue 300. Images obtained from the diaphragm to the floor the pelvis with IV contrast. There is interstitial infiltrates at the lung bases. Heart appears enlarged. There is no pericardial effusion. There is no pleural effusion. Liver spleen pancreas gallbladder appear intact. Bile ducts a re nondilated. The stomach is intact. There is small hiatal hernia. There is no adrenal mass. Kidneys show satisfactory contrast opacification. There is variable cortica l thinning in the left kidney consistent with atrophy and scarring. There is some irregular calcifica tion lower pole left kidney consistent with scarring. There is no hydronephrosis. Ureters are not dil ated. There is no retroperitoneal adenopathy. Bladder distends smoothly. There is lumbar dextroscoliosis. There is multilevel lumbar spondylotic changes. The bony pelvis is not well evaluated due to motion. No obvious fracture seen. Bladder shows no evidence of a mass. I se e no free fluid in the pelvis. There is no sign of a pelvic mass. There is no mesenteric edema. There is no ascites or free air. There is no bowel obstruction. There is posterior fusion surgery in the l ower lumbar spine. Appendix appears normal. IMPRESSION: Cortical thinning in the left kidney consistent with scarring and probably chronic pyelonephritis. No change. There is some mild interstitial infiltrates at the lung bases which are increased compared t o old exam.
[2021-01-18 03:49] LABS: Glucose,Whole Blood 281 mg/dL (75-99)
[2021-01-18 04:08] LABS: Potassium 4.6 mmol/L (3.5-5.1)
[2021-01-18 05:37] LABS: Amphetamine Screen,Urine Not Detected (NotDetected); Barbiturate Screen,Urine Not Detected (NotDetected); Benzodiazepines Screen,Urine Not Detected (NotDetected); Cocaine Screen,Urine Not Detected (NotDetected); Methadone Screen, Urine Not Detected (NotDetected); Opiate Screen,Urine Not Detected (NotDetected); Oxycodone Screen, Urine Not Detected (NotDetected); Phencyclidine Screen,Urine Not Detected (NotDetected); Tricyclic Antidepressant,Urine Not Detected (NotDetected); Urn Cannabinoid Scrn Not Detected (NotDetected)
[2021-01-18 05:40] LABS: Glucose,Whole Blood 298 mg/dL (75-99)
[2021-01-18 07:29] LABS: Glucose,Whole Blood 311 mg/dL (75-99)
[2021-01-18] MEDS: INSULIN ASPART (NovoLOG) 100 UNIT/ML VIAL SQ SCH ×3 (07:38→17:53)
[2021-01-18 09:09] LABS: Glucose,Whole Blood 242 mg/dL (75-99)
[2021-01-18] MEDS: PANTOPRAZOLE 40 MG/10 ML VIAL IV SCH (09:20)
[2021-01-18] MEDS ORDERED: hydrALAZINE HCL 20 MG/ML 1 ML VIAL IVP STA (09:21)
[2021-01-18] MEDS ORDERED: cloNIDine 0.1 MG/24HR PATCH TRANSDERM SCH (10:00)
[2021-01-18 11:56] LABS: Glucose,Whole Blood 300 mg/dL (75-99)
--- NOTE | 2021-01-18 12:47 | P.HPIM ---
History of Present Illness H&P Date: 01/18/21 This is a 70-year-old female who was brought to the emergency department with feelings of increased weakness, shortness of breath, overall fatigue and not feeling well. Patient does have an extensive past medical history of coronary artery disease, angina, heart failure, diabetes mellitus, GERD, hyperlipidemia, hypertension, myocardial infarction, osteoarthritis, sleep apnea, thyroid disorder, bilateral macular degeneration, IBS, narcolepsy, gout, pacemaker removal is slight was infected in July 2020, pacemaker placed in August 2020, anxiety. Patientlabs on admission show a white blood count of 14.5, hemoglobin is 15.0, platelets are 231, sodium was 128 with a potassium of 5.2, BUN 25 and creatinine 0.74, glucose was 753 and plasma lactic acid was 4.1, magnesium 1.9 alk phos elevated at 144, initial troponin indeterminate at 0.027 and BNP 1150 with a TSH of 6.2. Urinalysis was done which showed some moderate blood otherwise negative. Urine drug screen was negative and COVID-19 was not detected. chest x-ray showed no active cardiopulmonary disease with a normal heart and no changes. EKG shows sinus tachycardia with possible left atrial enlargement and left ventricular hypertrophy otherwise abnormal. CT of the brain showing cerebral atrophy with no acute intracranial abnormalities and no significant change compared to previous exam with some mild hydrocephalus without change compared to previous exam. abdomen CT pelvis was also performed showing cortical thinning in the left kidney consistent with scarring and probably chronic pyelonephritis with no change and some mild interstitial infiltrates at the lung bases which are increased compared to old exam. Per nursing staff in the emergency department, patient was mildly altered and thrashing about in complaining of extreme pain and restlessness in the legs and has been given multiple medications including I am held all, IV Benadryl, IV Ativan, phenobarbital, and some morphine and is very difficult to arouse and obtunded at this time. Will consult cardiology as repeat troponin came back elevated. Review of Systems ROS unobtainable: due to mental status Past Medical History Past Medical History: Coronary Artery Disease (CAD), Chest Pain / Angina, Heart Failure, Diabetes Mellitus, Eye Disorder, GERD/Reflux, Hyperlipidemia, Hypertens ion, Myocardial Infarction ([place]), Osteoarthritis (OA), Sleep Apnea/CPAP/BIPAP, Thyroid Disorder Additional Past Medical History / Comment(s): hx hypotension/cardiogenic shock, dizziness, junctional rhythm. Normal pressure hydrocephalus, neuropathy bilateral feet/toes, chronic back pain, RLS, embedded kidney stones, bilateral macular degeneration, IBS, narcolepsy, gout, SEE DR MORALES'S HISTORY AND PHYSICAL FOR CARDIAC HISTORY. PACEMAKER SITE INFECTED Last Myocardial Infarction Date:: 12/27/19 History of Any Multi-Drug Resistant Organisms: None Reported Past Surgical History: Back Surgery, EPS, Heart Catheterization With Stent, Joint Replacement, Orthopedic Surgery, Pacemaker, Tubal Ligation Additional Past Surgical History / Comment(s): 4 cardiac stents, low back surgery, brain shunt, colonoscopy, TOTAL LEFT KNEE. pacemaker removed 07/30/20 due to infection, Pacemaker placed in August 2020, Past Anesthesia/Blood Transfusion Reactions: Motion Sickness, Postoperative Nausea & Vomiting (PONV) Date of Last Stent Placement:: 12/27/19 Type of Cardiac Device: Permanent Pacemaker Device Placement Date:: MAR 2020 Past Psychological History: Anxiety Smoking Status: Never smoker Past Alcohol Use History: Occasional Past Drug Use History: None Reported - Past Family History Father History Unknown: Yes Family Medical History: Congestive Heart Failure (CHF), Hypertension Mother History Unknown: Yes Family Medical History: Congestive Heart Failure (CHF), Hypertension Brother(s) Family Medical History: Cancer, Myocardial Infarction ([place]) Additional Family Medical History / Comment(s): One brother had an [place]. Another brother had prostate cancer. Medications and Allergies Home Medications Medication Instructions Recorded Confirmed Type Colchicine [Colcrys] 0.6 mg PO DAILY 08/11/17 01/17/21 History Nitroglycerin Sl Tabs [Nitrostat] 0.4 mg SL Q5M PRN 08/11/17 01/17/21 History Ticagrelor [Brilinta] 90 mg PO BID 08/11/17 01/17/21 History DULoxetine HCL [Cymbalta] 60 mg PO BID 12/27/19 01/17/21 History Desloratadine [Clarinex] 5 mg PO DAILY 12/27/19 01/17/21 History Ezetimibe [Zetia] 10 mg PO HS 12/27/19 01/17/21 History Insulin Lispro [humaLOG Kwikpen] See Protocol SQ AC-TID 12/27/19 01/17/21 History Insulin Detemir [Levemir Flextouch 35 units SQ HS 07/29/20 01/17/21 History Pen] Levothyroxine Sodium [Levoxyl] 125 mcg PO DAILY 07/29/20 01/17/21 History Lisinopril [Prinivil] 10 mg PO DAILY 01/17/21 01/17/21 History Metoprolol Tartrate [Lopressor] 50 mg PO BID 01/17/21 01/17/21 History oxyCODONE-APAP 10-325MG [Percocet 1 tab PO BID PRN 01/17/21 01/17/21 History 10-325 mg] Allergies Allergy/AdvReac Type Severity Reaction Status Date / Time Penicillins Allergy Rash/Hives Verified 01/17/21 22:38 Physical Exam Vitals: Vital Signs Temp Pulse Resp BP Pulse Ox 01/18/21 09:08 98.6 F 124 H 24 230/137 97 01/18/21 08:28 115 H 22 170/80 97 01/18/21 07:21 98.6 F 100 20 169/89 98 01/18/21 06:30 98.4 F 102 H 18 178/98 98 01/18/21 05:30 103 H 18 163/93 98 01/18/21 04:35 98.6 F 105 H 18 169/88 98 01/18/21 03:30 106 H 22 147/92 98 01/18/21 02:57 112 H 20 98 01/18/21 02:37 112 H 20 137/89 99 01/18/21 02:22 117 H 20 124/71 99 01/18/21 01:58 114 H 18 129/71 99 01/18/21 01:36 110 H 18 163/90 99 01/18/21 01:18 109 H 18 166/102 99 01/18/21 01:10 112 H 18 205/101 99 01/18/21 00:37 102 H 18 184/96 97 01/17/21 23:20 97 18 158/108 99 01/17/21 21:45 102 H 18 140/97 96 01/17/21 20:31 98.7 F 109 H 18 186/97 97 Intake and Output 01/17/21 01/18/21 01/18/21 22:59 06:59 14:59 Other: Weight 78.018 kg Gen: This is a 70-year-old female, asleep, obtunded, appears to be in no acute distress, well-developed, well-nourished HEENT: Head is atraumatic, normocephalic. Pupils equal, round. Sclerae is anicteric. NECK: Supple. No JVD. No lymphadenopathy. No thyromegaly. LUNGS: diminished breath sounds bilaterally with snoring noted on exam. No intercostal retractions. HEART: S1, S2 are muffled, tachycardic ABDOMEN: Soft. obese. Bowel sounds are present. No masses. No tenderness. EXTREMITIES: No pedal edema. No calf tenderness. NEUROLOGICAL: Patient is asleep, obtunded, minimally arousable, unable to fully complete assessment Results CBC & Chem 7: 01/18/21 01:27 01/18/21 00:47 Labs: Abnormal Lab Results - Last 24 Hours (Table) 01/17/21 01/17/21 01/17/21 Range/Units 21:45 21:45 21:45 WBC 14.5 H (3.8-10.6) k/uL RDW 15.6 H (11.5-15.5) % Neutrophils # 10.8 H (1.3-7.7) k/uL APTT (22.0-30.0) sec Sodium 128 L (137-145) mmol/L Potassium 5.2 H (3.5-5.1) mmol/L Chloride 89 L (98-107) mmol/L BUN 25 H (7-17) mg/dL Glucose 753 H* (74-99) mg/dL POC Glucose (mg/dL) (75-99) mg/dL Osmolality (280-301) mosm/kg Plasma Lactic Acid Quang (0.7-2.0) mmol/L Calcium 10.4 H (8.4-10.2) mg/dL AST (14-36) U/L Alkaline Phosphatase 144 H (38-126) U/L Creatine Kinase (30-135) U/L Troponin I (0.000-0.034) ng/mL TSH 6.200 H (0.465-4.680) mIU/L Urine Glucose (UA) 4+ H (Negative) Urine Blood Moderate H (Negative) Urine RBC 42 H (0-5) /hpf Amorphous Sediment Rare H (None) /hpf Urine Bacteria Rare H (None) /hpf 01/17/21 01/17/21 01/17/21 Range/Units 21:45 22:18 23:28 WBC (3.8-10.6) k/uL RDW (11.5-15.5) % Neutrophils # (1.3-7.7) k/uL APTT 19.9 L (22.0-30.0) sec Sodium (137-145) mmol/L Potassium (3.5-5.1) mmol/L Chloride (98-107) mmol/L BUN (7-17) mg/dL Glucose (74-99) mg/dL POC Glucose (mg/dL) 577 H (75-99) mg/dL Osmolality (280-301) mosm/kg Plasma Lactic Acid Quang 4.1 H* (0.7-2.0) mmol/L Calcium (8.4-10.2) mg/dL AST (14-36) U/L Alkaline Phosphatase (38-126) U/L Creatine Kinase (30-135) U/L Troponin I (0.000-0.034) ng/mL TSH (0.465-4.680) mIU/L Urine Glucose (UA) (Negative) Urine Blood (Negative) Urine RBC (0-5) /hpf Amorphous Sediment (None) /hpf Urine Bacteria (None) /hpf 01/18/21 01/18/21 01/18/21 Range/Units 00:34 00:42 00:47 WBC (3.8-10.6) k/uL RDW (11.5-15.5) % Neutrophils # (1.3-7.7) k/uL APTT (22.0-30.0) sec Sodium (137-145) mmol/L Potassium (3.5-5.1) mmol/L Chloride (98-107) mmol/L BUN 20 H (7-17) mg/dL Glucose 284 H (74-99) mg/dL POC Glucose (mg/dL) 357 H (75-99) mg/dL Osmolality (280-301) mosm/kg Plasma Lactic Acid Quang 4.4 H* (0.7-2.0) mmol/L Calcium (8.4-10.2) mg/dL AST 41 H (14-36) U/L Alkaline Phosphatase (38-126) U/L Creatine Kinase 344 H (30-135) U/L Troponin I (0.000-0.034) ng/mL TSH (0.465-4.680) mIU/L Urine Glucose (UA) (Negative) Urine Blood (Negative) Urine RBC (0-5) /hpf Amorphous Sediment (None) /hpf Urine Bacteria (None) /hpf 01/18/21 01/18/21 01/18/21 Range/Units 00:50 01:27 01:41 WBC 13.3 H (3.8-10.6) k/uL RDW (11.5-15.5) % Neutrophils # 9.1 H (1.3-7.7) k/uL APTT (22.0-30.0) sec Sodium (137-145) mmol/L Potassium (3.5-5.1) mmol/L Chloride (98-107) mmol/L BUN (7-17) mg/dL Glucose (74-99) mg/dL POC Glucose (mg/dL) 244 H (75-99) mg/dL Osmolality 308 H (280-301) mosm/kg Plasma Lactic Acid Quang (0.7-2.0) mmol/L Calcium (8.4-10.2) mg/dL AST (14-36) U/L Alkaline Phosphatase (38-126) U/L Creatine Kinase (30-135) U/L Troponin I (0.000-0.034) ng/mL TSH (0.465-4.680) mIU/L Urine Glucose (UA) (Negative) Urine Blood (Negative) Urine RBC (0-5) /hpf Amorphous Sediment (None) /hpf Urine Bacteria (None) /hpf 01/18/21 01/18/21 01/18/21 Range/Units 02:25 03:47 05:33 WBC (3.8-10.6) k/uL RDW (11.5-15.5) % Neutrophils # (1.3-7.7) k/uL APTT (22.0-30.0) sec Sodium (137-145) mmol/L Potassium (3.5-5.1) mmol/L Chloride (98-107) mmol/L BUN (7-17) mg/dL Glucose (74-99) mg/dL POC Glucose (mg/dL) 264 H 281 H (75-99) mg/dL Osmolality (280-301) mosm/kg Plasma Lactic Acid Quang (0.7-2.0) mmol/L Calcium (8.4-10.2) mg/dL AST (14-36) U/L Alkaline Phosphatase (38-126) U/L Creatine Kinase (30-135) U/L Troponin I 0.043 H* (0.000-0.034) ng/mL TSH (0.465-4.680) mIU/L Urine Glucose (UA) (Negative) Urine Blood (Negative) Urine RBC (0-5) /hpf Amorphous Sediment (None) /hpf Urine Bacteria (None) /hpf 01/18/21 01/18/21 01/18/21 Range/Units 05:39 07:28 09:07 WBC (3.8-10.6) k/uL RDW (11.5-15.5) % Neutrophils # (1.3-7.7) k/uL APTT (22.0-30.0) sec Sodium (137-145) mmol/L Potassium (3.5-5.1) mmol/L Chloride (98-107) mmol/L BUN (7-17) mg/dL Glucose (74-99) mg/dL POC Glucose (mg/dL) 298 H 311 H 242 H (75-99) mg/dL Osmolality (280-301) mosm/kg Plasma Lactic Acid Quang (0.7-2.0) mmol/L Calcium (8.4-10.2) mg/dL AST (14-36) U/L Alkaline Phosphatase (38-126) U/L Creatine Kinase (30-135) U/L Troponin I (0.000-0.034) ng/mL TSH (0.465-4.680) mIU/L Urine Glucose (UA) (Negative) Urine Blood (Negative) Urine RBC (0-5) /hpf Amorphous Sediment (None) /hpf Urine Bacteria (None) /hpf Assessment and Plan Assessment: altered mental status, possibly due to metabolic and toxic encephalopathy Elevated blood sugars possible hyperosmolar hyperglycemic syndrome nonketotic leukocytosis Lactic acidosis hyponatremia Generalized weakness Dehydration Gait dysfunction Shortness of breath Coronary artery disease History of chest pain and angina History of heart failure Diabetes mellitus 2, insulin-dependent, uncontrolled with hyperglycemia Sleep apnea Thyroid disorder Hypertension Hyperlipidemia Past medical history of myocardial infarction Osteoarthritis GERD past medical history of pacemaker site infection with replaced pacemaker in August 2020 full code Plan: Patient continues to be obtunded most likely a component of narcotics, Ativan, phenobarbital that was given in the ER and will monitor closely for resolution. Continue to monitor Accu-Cheks before meals and at bedtime and will resume insulins. Decrease IV fluid to prevent possible volume overload. Will repeat labs and monitor closely. Continue telemetry monitoring. Repeat troponin was increased and will consult cardiology. Patient does have a past medical history of pacemaker placement in heart failure in August of this year. Lactic acid has normalized and hyponatremia has resolved. Will have PT/OT evaluate the patient once more stable and more alert and will resume diet once awake. Due to multiple complex medical issues, prognosis is guarded. Time with Patient: Greater than 30
--- NOTE | 2021-01-18 14:49 | P.CRDCN ---
History of Present Illness Consult date: 01/18/21 Chief complaint: Change in mental status History of present illness: The patient is a 70-year-old female patient with us to see for further evalu ation of abnormal cardiac enzymes. The patient follows with Dr. Ruiz regularly. She is known to have coronary artery disease and she underwent stenting of the RCA in November 2019 to and also she does have dual chamber pacemaker and also diabetes and hypertension and dyslipidemia. She was brought to the emergency department from an extended care facility for change in mental status. Her glucose was more than 500. We requested to see the patient for further cardiac evaluation and abnormal cardiac enzymes. The troponin was checked and came in to be slightly abnormal. The EKG showed sinus rhythm without any significant ST or T-wave abnormalities. The patient does have severe change in mental status and I could not get any history from her. According to the chart as well as ER note as well as the nurse taking care of the patient there is no indication that she was experiencing any symptoms of chest pain or chest discomfort or any increasing in the shortness of breath. No dizziness or lightheadedness and no presyncope or syncope. She was weak at the extended care facility and she was falling. On examination she seems to be dehydrated. She underwent a computed tomography scan of the brain and that came in to be unremarkable. She underwent also a chest x-ray and that also came in to be unremarkable. At this point we recommend medical treatment for the abnormal troponin which is mild and does not seems to be consistent with acute coronary syndrome in the absence of any chest pain or chest discomfort and the absence of any EKG changes consistent with ischemia. Past Medical History Past Medical History: Coronary Artery Disease (CAD), Chest Pain / Angina, Heart Failure, Diabetes Mellitus, Eye Disorder, GERD/Reflux, Hyperlipidemia, Hypertension, Myocardial Infarction ([place]), Osteoarthritis (OA), Sleep Apnea/CPAP/BIPAP, Thyroid Disorder Additional Past Medical History / Comment(s): hx hypotension/cardiogenic shock, dizziness, junctional rhythm. Normal pressure hydrocephalus, neuropathy bilate ral feet/toes, chronic back pain, RLS, embedded kidney stones, bilateral macular degeneration, IBS, narcolepsy, gout, SEE DR MORALES'S HISTORY AND PHYSICAL FOR CARDIAC HISTORY. PACEMAKER SITE INFECTED Last Myocardial Infarction Date:: 12/27/19 History of Any Multi-Drug Resistant Organisms: None Reported Past Surgical History: Back Surgery, EPS, Heart Catheterization With Stent, Joint Replacement, Orthopedic Surgery, Pacemaker, Tubal Ligation Additional Past Surgical History / Comment(s): 4 cardiac stents, low back surgery, brain shunt, colonoscopy, TOTAL LEFT KNEE. pacemaker removed 07/30/20 due to infection, Pacemaker placed in August 2020, Past Anesthesia/Blood Transfusion Reactions: Motion Sickness, Postoperative Nausea & Vomiting (PONV) Date of Last Stent Placement:: 12/27/19 Type of Cardiac Device: Permanent Pacemaker Device Placement Date:: MAR 2020 Past Psychological History: Anxiety Smoking Status: Never smoker Past Alcohol Use History: Occasional Past Drug Use History: None Reported - Past Family History Father History Unknown: Yes Family Medical History: Congestive Heart Failure (CHF), Hypertension Mother History Unknown: Yes Family Medical History: Congestive Heart Failure (CHF), Hypertension Brother(s) Family Medical History: Cancer, Myocardial Infarction ([place]) Additional Family Medical History / Comment(s): One brother had an [place]. Another brother had prostate cancer. Medications and Allergies Home Medications Medication Instructions Recorded Confirmed Type Colchicine [Colcrys] 0.6 mg PO DAILY 08/11/17 01/17/21 History Nitroglycerin Sl Tabs [Nitrostat] 0.4 mg SL Q5M PRN 08/11/17 01/17/21 History Ticagrelor [Brilinta] 90 mg PO BID 08/11/17 01/17/21 History DULoxetine HCL [Cymbalta] 60 mg PO BID 12/27/19 01/17/21 History Desloratadine [Clarinex] 5 mg PO DAILY 12/27/19 01/17/21 History Ezetimibe [Zetia] 10 mg PO HS 12/27/19 01/17/21 History Insulin Lispro [humaLOG Kwikpen] See Protocol SQ AC-TID 12/27/19 01/17/21 History Insulin Detemir [Levemir Flextouch 35 units SQ HS 07/29/20 01/17/21 History Pen] Levothyroxine Sodium [Levoxyl] 125 mcg PO DAILY 07/29/20 01/17/21 History Lisinopril [Prinivil] 10 mg PO DAILY 01/17/21 01/17/21 History Metoprolol Tartrate [Lopressor] 50 mg PO BID 01/17/21 01/17/21 History oxyCODONE-APAP 10-325MG [Percocet 1 tab PO BID PRN 01/17/21 01/17/21 History 10-325 mg] Allergies Allergy/AdvReac Type Severity Reaction Status Date / Time Penicillins Allergy Rash/Hives Verified 01/17/21 22:38 Physical Exam Vitals: Vital Signs Temp Pulse Pulse Resp BP BP Pulse Ox 01/18/21 12:00 97.9 F 98 18 153/64 97 01/18/21 11:20 118 H 22 154/87 99 01/18/21 10:24 117 H 22 133/80 98 01/18/21 09:08 98.6 F 124 H 24 230/137 97 01/18/21 08:28 115 H 22 170/80 97 01/18/21 07:21 98.6 F 100 20 169/89 98 01/18/21 06:30 98.4 F 102 H 18 178/98 98 01/18/21 05:30 103 H 18 163/93 98 01/18/21 04:35 98.6 F 105 H 18 169/88 98 01/18/21 03:30 106 H 22 147/92 98 01/18/21 02:57 112 H 20 98 01/18/21 02:37 112 H 20 137/89 99 01/18/21 02:22 117 H 20 124/71 99 01/18/21 01:58 114 H 18 129/71 99 01/18/21 01:36 110 H 18 163/90 99 01/18/21 01:18 109 H 18 166/102 99 01/18/21 01:10 112 H 18 205/101 99 01/18/21 00:37 102 H 18 184/96 97 01/17/21 23:20 97 18 158/108 99 01/17/21 21:45 102 H 18 140/97 96 01/17/21 20:31 98.7 F 109 H 18 186/97 97 Intake and Output 01/17/21 01/18/21 01/18/21 22:59 06:59 14:59 Other: Weight 78.018 kg 78.018 kg - Constitutional General appearance: no acute distress - Respiratory Respiratory: bilateral: CTA - Cardiovascular Rhythm: regular Heart sounds: normal: S1, S2 Abnormal Heart Sounds: systolic murmur Results 01/18/21 01:27 01/18/21 00:47 Cardiac Enzymes 01/17/21 01/17/21 01/18/21 Range/Units 21:45 21:45 00:47 AST 26 41 H (14-36) U/L Troponin I 0.027 (0.000-0.034) ng/mL 01/18/21 Range/Units 05:33 AST (14-36) U/L Troponin I 0.043 H* (0.000-0.034) ng/mL Coagulation 01/17/21 Range/Units 22:18 PT 10.3 (9.0-12.0) sec APTT 19.9 L (22.0-30.0) sec CBC 01/17/21 01/18/21 Range/Units 21:45 01:27 WBC 14.5 H 13.3 H (3.8-10.6) k/uL RBC 5.19 4.44 (3.80-5.40) m/uL Hgb 15.0 12.6 (11.4-16.0) gm/dL Hct 44.1 39.2 (34.0-46.0) % Plt Count 231 182 (150-450) k/uL Comprehensive Metabolic Panel 01/17/21 01/18/21 Range/Units 21:45 00:47 Sodium 128 L 138 (137-145) mmol/L Potassium 5.2 H 4.6 (3.5-5.1) mmol/L Chloride 89 L 104 (98-107) mmol/L Carbon Dioxide 25 26 (22-30) mmol/L BUN 25 H 20 H (7-17) mg/dL Creatinine 0.74 0.66 (0.52-1.04) mg/dL Glucose 753 H* 284 H (74-99) mg/dL Calcium 10.4 H 9.2 (8.4-10.2) mg/dL AST 26 41 H (14-36) U/L ALT 31 27 (4-34) U/L Alkaline Phosphatase 144 H 114 (38-126) U/L Total Protein 7.5 6.7 (6.3-8.2) g/dL Albumin 4.5 3.9 (3.5-5.0) g/dL Current Medications Generic Name Dose Route Start Last Admin Trade Name Freq PRN Reason Stop Dose Admin Acetaminophen 650 mg 01/18/21 00:07 Acetaminophen Tab 325 Mg Tab PO Q6HR PRN Mild Pain or Fever > 100.5 Clonidine HCl 1 patch 01/18/21 10:00 01/18/21 10:24 Clonidine 0.1 Mg/24hr Patch TRANSDERM 1 patch Q7D FRANCISCO Administration Sodium Chloride 1,000 mls @ 130 mls/hr 01/18/21 00:15 01/18/21 09:06 Saline 0.9% IV 130 mls/hr .[id number] FRANCISCO Administration Insulin Aspart 0 unit 01/18/21 07:45 01/18/21 07:38 Insulin Aspart (Novolog) 100 Unit/Ml Vial SQ 5 unit AC-TID FRANCISCO Administration Protocol Lisinopril 10 mg 01/18/21 09:30 Lisinopril 10 Mg Tab PO DAILY FRANCISCO Metoprolol Tartrate 50 mg 01/18/21 09:30 Metoprolol Tartrate 50 Mg Tab PO BID FRANCISCO Morphine Sulfate 4 mg 01/18/21 00:07 01/18/21 07:39 Morphine Sulfate 4 Mg/Ml Syringe IV 4 mg Q4HR PRN Administration Severe Pain Naloxone HCl 0.2 mg 01/18/21 00:07 Naloxone 0.4 Mg/Ml 1 Ml Vial IV Q2M PRN Opioid Reversal Ondansetron HCl 4 mg 01/18/21 00:07 Ondansetron 4 Mg/2 Ml Vial IVP Q8HR PRN Nausea And Vomiting Pantoprazole Sodium 40 mg 01/18/21 09:00 01/18/21 09:20 Pantoprazole 40 Mg/10 Ml Vial IV 40 mg DAILY FRANCISCO Administration Intake and Output 01/17/21 01/18/21 01/18/21 22:59 06:59 14:59 Other: Weight 78.018 kg 78.018 kg 01/18/21 01:27 01/18/21 00:47 Assessment and Plan Assessment: Assessment #1 change in mental status probably metabolic #2 mildly abnormal cardiac enzymes #3 elevated glucose #4 dehydration #5 coronary artery disease #6 multiple comorbid conditions Plan #1 continue the current medical regimen #2 conservative approach for the abnormal troponin #3 continue telemetry monitoring #4 obtain an echo was Doppler #5 follow-up with the patient
[2021-01-18] MEDS: lisinopriL 10 MG TAB PO SCH (15:43)
[2021-01-18] MEDS: METOPROLOL TARTRATE 50 MG TAB PO SCH ×2 (15:43→20:33)
[2021-01-18 16:53] LABS: Glucose,Whole Blood 230 mg/dL (75-99)
[2021-01-18 20:46] LABS: Glucose,Whole Blood 164 mg/dL (75-99)
[2021-01-19 06:26] LABS: Glucose,Whole Blood 185 mg/dL (75-99)
[2021-01-19] MEDS: INSULIN ASPART (NovoLOG) 100 UNIT/ML VIAL SQ SCH ×4 (06:30→20:26)
--- NOTE | 2021-01-19 07:56 | P.PN ---
Subjective Progress Note Date: 01/19/21 The patient is a 70-year-old female patient with known coronary artery disease as well as multiple comorbid conditions was admitted to the hospital with a change in mental status and we consulted 4 mildly abnormal troponin. The patient was diagnosed with elevated glucose and dehydration. We advise maximize medical treatment and conservative medical approach. The patient was seen this morning. She still lethargic. She reports no symptoms of chest pain or chest discomfort. At this point we'll continue the conservative medical approach. Hemodynamically she is a stable. Objective - Vital Signs Vital signs: Vital Signs Temp 97.5 F L 01/18/21 20:00 Pulse 75 01/19/21 04:00 Resp 18 01/19/21 04:00 BP 112/68 01/19/21 04:00 Pulse Ox 97 01/19/21 04:00 Intake & Output 01/18/21 01/19/21 01/19/21 18:59 06:59 18:59 Output Total 600 Balance -600 Weight 72.5 kg Output: Urine 600 Other: Voiding Method Diaper Diaper External Catheter External Catheter # Voids 1 - Constitutional General appearance: Present: no acute distress - Respiratory Respiratory: bilateral: diminished - Cardiovascular Rhythm: regular Heart sounds: normal: S1, S2 - Labs CBC & Chem 7: 01/18/21 01:27 01/18/21 00:47 Labs: Abnormal Lab Results - Last 24 Hours (Table) 01/18/21 01/18/21 01/18/21 Range/Units 09:07 11:51 16:50 POC Glucose (mg/dL) 242 H 300 H 230 H (75-99) mg/dL 01/18/21 01/19/21 Range/Units 20:35 06:24 POC Glucose (mg/dL) 164 H 185 H (75-99) mg/dL Assessment and Plan Assessment: Assessment #1 change in mental status probably metabolic #2 mildly abnormal cardiac enzymes #3 elevated glucose #4 dehydration #5 coronary artery disease #6 status post permanent pacemaker Plan #1 continue the current medical regimen #2 conservative approach for the abnormal troponin #3 continue telemetry monitoring #4 follow-up on the echocardiogram
[2021-01-19 08:12] LABS: Basophils % (A) 0 %; Eosinophils % (A) 0 %; HCT 36.9 % (34.0-46.0); Lymphocytes # (A) 2.1 k/uL (1.0-4.8); Lymphocytes % (A) 20 %; MCH 28.7 pg (25.0-35.0); MCHC 32.6 g/dL (31.0-37.0); MCV 87.8 fL (80.0-100.0); Mean Platelet Volume 8.2; Monocytes # (A) 0.4 k/uL (0-1.0); Monocytes % (A) 4 %; Neutrophils % (A) 75 %; Platelet Count 143 k/uL (150-450); RDW 15.6 % (11.5-15.5); WBC 10.6 k/uL (3.8-10.6)
[2021-01-19 08:43] LABS: ALT 23 U/L (4-34); AST 32 U/L (14-36); African American GFR (CKD) >90 (>60 ml/min/1.73 sqM); Alkaline Phosphatase 107 U/L (38-126); Anion Gap 5 mmol/L; Blood Urea Nitrogen 14 mg/dL (7-17); Calcium 8.8 mg/dL (8.4-10.2); Carbon Dioxide 27 mmol/L (22-30); Chloride 103 mmol/L (98-107); Glucose 201 mg/dL (74-99); Magnesium 1.6 mg/dL (1.6-2.3); Non-African American GFR(CKD) >90 (>60 ml/min/1.73 sqM); Potassium 4.3 mmol/L (3.5-5.1); Sodium 135 mmol/L (137-145); Total Bilirubin 0.7 mg/dL (0.2-1.3); Total Protein 5.4 g/dL (6.3-8.2)
[2021-01-19] MEDS: SODIUM CHLORIDE 0.9% 1,000 ML IV SCH ×3 (08:59→23:24)
[2021-01-19] MEDS: lisinopriL 10 MG TAB PO SCH (09:48)
[2021-01-19] MEDS: PANTOPRAZOLE 40 MG/10 ML VIAL IV SCH (09:48)
[2021-01-19] MEDS: METOPROLOL TARTRATE 50 MG TAB PO SCH ×2 (09:48→21:20)
[2021-01-19 11:48] LABS: Glucose,Whole Blood 547 mg/dL (75-99)
[2021-01-19 11:48] LABS: Glucose,Whole Blood >600 mg/dL (75-99)
[2021-01-19 14:54] LABS: Glucose,Whole Blood 315 mg/dL (75-99)
[2021-01-19] MEDS ORDERED: INSULIN ASPART (NovoLOG) 100 UNIT/ML VIAL SQ ONE (14:58)
[2021-01-19 16:30] LABS: Glucose,Whole Blood 282 mg/dL (75-99)
--- NOTE | 2021-01-19 17:03 | ECHOF ---
Referral Reason:ACS MEASUREMENTS -------- HEIGHT: 172.7 cm WEIGHT: 72.1 kg BP: 112/68 RVIDd: 2.6 cm (< 3.3) IVSd: 1.4 cm (0.6 - 1.1) LVIDd: 2.9 cm (3.9 - 5.3) LVPWd: 1.3 cm (0.6 - 1.1) IVSs: 1.6 cm LVIDs: 1.8 cm LVPWs: 1.6 cm LA Diam: 2.5 cm (2.7 - 3.8) LAESV Index (A-L): 17.95 ml/m Ao Diam: 2.9 cm (2.0 - 3.7) AV Cusp: 1.9 cm (1.5 - 2.6) MV EXCURSION: 13.536 mm (> 18.000) MV EF SLOPE: 54 mm/s (70 - 150) EPSS: 0.2 cm RAP: 5.00 mmHg RVSP: 30.53 mmHg FINDINGS -------- Sinus rhythm. This was a technically good study. The left ventricular size is normal. There is moderate concentric left ventricular hypertrophy. O verall left ventricular systolic function is normal with, an EF between 60 - 65 %. The right ventricle is normal in size. Normal LA size by volume 22+/-6 ml/m2. The right atrium is normal in size. Interatrial and interventricular septum intact. There is mild aortic valve sclerosis. Mild mitral annular calcification present. Mild tricuspid regurgitation present. Right ventricular systolic pressure is normal at < 35 mmHg. Trace/mild (physiologic) pulmonic regurgitation. The aortic root size is normal. Normal inferior vena cava with normal inspiratory collapse consistent with estimated right atrial pre ssure of 5 mmHg. There is no pericardial effusion. CONCLUSIONS -------- 1. The left ventricular size is normal. 2. There is moderate concentric left ventricular hypertrophy. 3. Overall left ventricular systolic function is normal with, an EF between 60 - 65 %. 4. Mild mitral annular calcification present. 5. Mild tricuspid regurgitation present. 6. Trace/mild (physiologic) pulmonic regurgitation. 7. There is no pericardial effusion. SHIFT MANAGER: Edna Smith RDCS
[2021-01-19 20:19] LABS: Glucose,Whole Blood 166 mg/dL (75-99)
[2021-01-19] MEDS: TICAGRELOR 90 MG TAB PO SCH (20:26)
[2021-01-19] MEDS: INSULIN DETEMIR (LEVEMIR) 100 UNIT/ML SYR SQ SCH (20:27)
[2021-01-20 01:14] LABS: Glucose,Whole Blood 144 mg/dL (75-99)
[2021-01-20 06:10] LABS: Glucose,Whole Blood 112 mg/dL (75-99)
[2021-01-20] MEDS: SODIUM CHLORIDE 0.9% 1,000 ML IV SCH ×3 (06:21→22:36)
[2021-01-20] MEDS: INSULIN ASPART (NovoLOG) 100 UNIT/ML VIAL SQ SCH ×4 (06:24→20:21)
[2021-01-20] MEDS: LEVOTHYROXINE 125 MCG TAB PO SCH (06:24)
--- NOTE | 2021-01-20 09:50 | P.PN ---
Subjective Progress Note Date: 01/20/21 Principal diagnosis: Mildly abnormal cardiac enzymes The patient is a 70-year-old female patient with known coronary artery disease as well as multiple comorbid conditions was admitted to the hospital with a change in mental status and we consulted because mildly abnormal troponin. The patient was diagnosed with elevated glucose and dehydration. We advise maximize medical treatment and conservative medical approach. The patient was seen this morning. She is asymptomatic from a cardiac vascular standpoint of view. Her mentation has improved significantly. She is alert and oriented 3. Hemodynamically she is stable as well. From the cardiac standpoint of view, the patient can be discharged home. No need for any further cardiac workup at this point. Objective - Vital Signs Vital signs: Vital Signs Temp 98.0 F 01/20/21 04:00 Pulse 71 01/20/21 04:00 Resp 18 01/20/21 04:00 BP 142/66 01/20/21 04:00 Pulse Ox 100 01/20/21 04:00 Intake & Output 01/19/21 01/20/21 01/20/21 18:59 06:59 18:59 Intake Total 2220 Output Total 700 850 Balance 1520 -850 Weight 72.5 kg 81.8 kg Intake: Intake, IV Titration 1500 Amount Sodium Chloride 0.9% 1, 1500 000 ml @ 130 mls/hr IV . Q7H42M ON LICENSE OF [facility] Rx#:[id number] Oral 720 Output: Urine 700 850 Other: Voiding Method Diaper Diaper External Catheter External Catheter - Constitutional General appearance: Present: no acute distress - Respiratory Respiratory: bilateral: CTA - Cardiovascular Rhythm: regular Heart sounds: normal: S1, S2 - Labs CBC & Chem 7: 01/19/21 07:13 01/19/21 11:59 Labs: Abnormal Lab Results - Last 24 Hours (Table) 01/19/21 01/19/21 01/19/21 Range/Units 11:44 11:46 11:59 Glucose 444 H (74-99) mg/dL POC Glucose (mg/dL) 547 H >600 H (75-99) mg/dL 01/19/21 01/19/21 01/19/21 Range/Units 14:52 16:28 20:18 Glucose (74-99) mg/dL POC Glucose (mg/dL) 315 H 282 H 166 H (75-99) mg/dL 01/20/21 01/20/21 Range/Units 01:12 06:09 Glucose (74-99) mg/dL POC Glucose (mg/dL) 144 H 112 H (75-99) mg/dL Assessment and Plan Assessment: Assessment #1 change in mental status probably metabolic #2 mildly abnormal cardiac enzymes #3 elevated glucose #4 dehydration #5 coronary artery disease #6 status post permanent pacemaker Plan #1 continue the current medical regimen #2 conservative approach for the abnormal troponin #3 the patient can be discharged home
[2021-01-20 11:43] LABS: Glucose,Whole Blood 233 mg/dL (75-99)
[2021-01-20] MEDS: TICAGRELOR 90 MG TAB PO SCH ×2 (12:29→20:21)
[2021-01-20] MEDS: PANTOPRAZOLE 40 MG/10 ML VIAL IV SCH (12:29)
[2021-01-20] MEDS: METOPROLOL TARTRATE 50 MG TAB PO SCH ×2 (12:29→20:21)
[2021-01-20] MEDS: lisinopriL 10 MG TAB PO SCH (12:30)
--- NOTE | 2021-01-20 16:16 | P.PN ---
Subjective Progress Note Date: 01/19/21 Principal diagnosis: altered mental status, possibly due to metabolic and toxic encephalopathy Elevated blood sugars possible hyperosmolar hyperglycemic syndrome nonketotic leukocytosis Lactic acidosis hyponatremia Generalized weakness Dehydration 70-year-old female who was brought to the emergency department with feelings of increased weakness, shortness of breath, overall fatigue and not feeling well. Patient does have an extensive past medical history of coronary artery disease, angina, heart failure, diabetes mellitus, GERD, hyperlipidemia, hypertension, myocardial infarction, osteoarthritis, sleep apnea, thyroid disorder, bilateral macular degeneration, IBS, narcolepsy, gout, pacemaker removal is slight was infected in July 2020, pacemaker placed in August 2020, anxiety. Patientlabs on admission show a white blood count of 14.5, hemoglobin is 15.0, platelets are 231, sodium was 128 with a potassium of 5.2, BUN 25 and creatinine 0.74, glucose was 753 and plasma lactic acid was 4.1, magnesium 1.9 alk phos elevated at 144, initial troponin indeterminate at 0.027 and BNP 1150 with a TSH of 6.2. Urinalysis was done which showed some moderate blood otherwise negative. Urine drug screen was negative and COVID-19 was not detected. chest x-ray showed no active cardiopulmonary disease with a normal heart and no changes. EKG shows sinus tachycardia with possible left atrial enlargement and left ventricular hypertrophy otherwise abnormal. CT of the brain showing cerebral atrophy with no acute intracranial abnormalities and no significant change compared to previous exam with some mild hydrocephalus without change compared to previous exam. abdomen CT pelvis was also performed showing cortical thinning in the left kidney consistent with scarring and probably chronic pyelonephritis with no change and some mild interstitial infiltrates at the lung bases which are increased compared to old exam. Per nursing staff in the emergency department, patient was mildly altered and thrashing about in complaining of extreme pain and restlessness in the legs and has been given multiple medications including I am held all, IV Benadryl, IV Ativan, phenobarbital, and some morphine and is very difficult to arouse and obtunded at this time. Will consult cardiology as repeat troponin came back elevated. Objective - Vital Signs Vital signs: Vital Signs Temp 98.0 F 01/19/21 11:05 Pulse 72 01/19/21 11:05 Resp 16 01/19/21 11:05 BP 133/66 01/19/21 11:05 Pulse Ox 98 01/19/21 11:05 Intake & Output 01/18/21 01/19/21 01/19/21 18:59 06:59 18:59 Intake Total 480 Output Total 600 700 Balance -600 -220 Weight 72.5 kg 72.5 kg Intake: Oral 480 Output: Urine 600 700 Other: Voiding Method Diaper Diaper Diaper External Catheter External Catheter External Catheter # Voids 1 - Exam - Constitutional General appearance: Present: average body habitus, cooperative, no acute distress - EENT Eyes: Present: anicteric sclerae, EOMI, PERRLA, normal appearance ENT: Present: hearing grossly normal, normal oropharynx Ears: bilateral: normal - Neck Neck: Present: normal ROM. Absent: lymphadenopathy, rigidity, thyromegaly Carotids: negative: bruit present Thyroid: bilateral: normal size, negative: enlarged, nodule - Respiratory Respiratory: bilateral: CTA, negative: rales, rhonchi, wheezing - Cardiovascular Rhythm: regular Heart sounds: normal: S1, S2 Abnormal Heart Sounds: Absent: systolic murmur, diastolic murmur - Gastrointestinal General gastrointestinal: Present: normal bowel sounds, soft. Absent: distended, organomegaly, tenderness - Genitourinary Genitourinary Comment(s): deferred - Integumentary Integumentary: Present: normal turgor. Absent: jaundiced, rash, ulcer - Neurologic Neurologic: Present: CNII-XII intact. Absent: focal deficits - Musculoskeletal Musculoskeletal: Present: gait normal, strength equal bilaterally - Psychiatric Psychiatric: Present: A&O x's 3, appropriate affect, intact judgment & insight - Labs CBC & Chem 7: 01/19/21 07:13 01/19/21 11:59 Labs: Abnormal Lab Results - Last 24 Hours (Table) 01/18/21 01/18/21 01/19/21 Range/Units 16:50 20:35 06:24 RDW (11.5-15.5) % Plt Count (150-450) k/uL Neutrophils # (1.3-7.7) k/uL Sodium (137-145) mmol/L Glucose (74-99) mg/dL POC Glucose (mg/dL) 230 H 164 H 185 H (75-99) mg/dL Total Protein (6.3-8.2) g/dL Albumin (3.5-5.0) g/dL 01/19/21 01/19/21 01/19/21 Range/Units 07:13 07:13 11:44 RDW 15.6 H (11.5-15.5) % Plt Count 143 L (150-450) k/uL Neutrophils # 8.0 H (1.3-7.7) k/uL Sodium 135 L (137-145) mmol/L Glucose 201 H (74-99) mg/dL POC Glucose (mg/dL) 547 H (75-99) mg/dL Total Protein 5.4 L (6.3-8.2) g/dL Albumin 3.0 L (3.5-5.0) g/dL 01/19/21 01/19/21 Range/Units 11:46 11:59 RDW (11.5-15.5) % Plt Count (150-450) k/uL Neutrophils # (1.3-7.7) k/uL Sodium (137-145) mmol/L Glucose 444 H (74-99) mg/dL POC Glucose (mg/dL) >600 H (75-99) mg/dL Total Protein (6.3-8.2) g/dL Albumin (3.5-5.0) g/dL Assessment and Plan Assessment: altered mental status, possibly due to metabolic and toxic encephalopathy Elevated blood sugars possible hyperosmolar hyperglycemic syndrome nonketotic leukocytosis Lactic acidosis hyponatremia Generalized weakness Dehydration Gait dysfunction Shortness of breath Coronary artery disease History of chest pain and angina History of heart failure Diabetes mellitus 2, insulin-dependent, uncontrolled with hyperglycemia Sleep apnea Thyroid disorder Hypertension Hyperlipidemia Past medical history of myocardial infarction Osteoarthritis GERD past medical history of pacemaker site infection with replaced pacemaker in August 2020 full code Plan: Patient continues to be obtunded most likely a component of narcotics, Ativan, phenobarbital that was given in the ER and will monitor closely for resolution. Continue to monitor Accu-Cheks before meals and at bedtime and will resume insulins. Decrease IV fluid to prevent possible volume overload. Will repeat labs and monitor closely. Continue telemetry monitoring. Repeat troponin was increased and will consult cardiology. Patient does have a past medical history of pacemaker placement in heart failure in August of this year. Lactic acid has normalized and hyponatremia has resolved. Will have PT/OT evaluate the patient once more stable and more alert and will resume diet once awake. Due to multiple complex medical issues, prognosis is guarded.
[2021-01-20 16:52] LABS: Glucose,Whole Blood 319 mg/dL (75-99)
[2021-01-20 19:56] LABS: Glucose,Whole Blood 326 mg/dL (75-99)
[2021-01-20] MEDS: INSULIN DETEMIR (LEVEMIR) 100 UNIT/ML SYR SQ SCH (20:21)
--- NOTE | 2021-01-20 20:35 | P.PN ---
Subjective Progress Note Date: 01/20/21 Principal diagnosis: altered mental status, possibly due to metabolic and toxic encephalopathy Elevated blood sugars possible hyperosmolar hyperglycemic syndrome nonketotic leukocytosis Lactic acidosis hyponatremia Generalized weakness Dehydration 70-year-old female who was brought to the emergency department with feelings of increased weakness, shortness of breath, overall fatigue and not feeling well. Patient does have an extensive past medical history of coronary artery disease, angina, heart failure, diabetes mellitus, GERD, hyperlipidemia, hypertension, myocardial infarction, osteoarthritis, sleep apnea, thyroid disorder, bilateral macular degeneration, IBS, narcolepsy, gout, pacemaker removal is slight was infected in July 2020, pacemaker placed in August 2020, anxiety. Patientlabs on admission show a white blood count of 14.5, hemoglobin is 15.0, platelets are 231, sodium was 128 with a potassium of 5.2, BUN 25 and creatinine 0.74, glucose was 753 and plasma lactic acid was 4.1, magnesium 1.9 alk phos elevated at 144, initial troponin indeterminate at 0.027 and BNP 1150 with a TSH of 6.2. Urinalysis was done which showed some moderate blood otherwise negative. Urine drug screen was negative and COVID-19 was not detected. chest x-ray showed no active cardiopulmonary disease with a normal heart and no changes. EKG shows sinus tachycardia with possible left atrial enlargement and left ventricular hypertrophy otherwise abnormal. CT of the brain showing cerebral atrophy with no acute intracranial abnormalities and no significant change compared to previous exam with some mild hydrocephalus without change compared to previous exam. abdomen CT pelvis was also performed showing cortical thinning in the left kidney consistent with scarring and probably chronic pyelonephritis with no change and some mild interstitial infiltrates at the lung bases which are increased compared to old exam. Per nursing staff in the emergency department, patient was mildly altered and thrashing about in complaining of extreme pain and restlessness in the legs and has been given multiple medications including I am held all, IV Benadryl, IV Ativan, phenobarbital, and some morphine and is very difficult to arouse and obtunded at this time. Will consult cardiology as repeat troponin came back elevated. 01/20/2021 Patient is seen and evaluated and discussed with nursing staff. Patient has known coronary artery disease and was admitted to the hospital with change in mental status. Patient had a mildly elevated troponin. Along with this patient had elevated glucose and dehydration. From cardiology she was determined asymptomatic. Patient's mental status has improved significantly and patient is alert and oriented. Patient has no complaints nor are there any major changes from yesterday. Patient is determined to be hemodynamically stable and is cleared by cardiology, no further cardiac workup is needed. Blood sugars are reviewed and are stable; patient has been placed back on home schedule of insulin Mental status is markedly improved Await PT/OT evaluation for discharge planning Objective - Vital Signs Vital signs: Vital Signs Temp 99.0 F 01/20/21 15:05 Pulse 75 01/20/21 15:05 Resp 16 01/20/21 15:05 BP 136/75 01/20/21 15:05 Pulse Ox 98 01/20/21 15:05 Intake & Output 01/19/21 01/20/21 01/20/21 18:59 06:59 18:59 Intake Total 2220 420 Output Total 700 850 Balance 1520 -850 420 Weight 72.5 kg 81.8 kg Intake: Intake, IV Titration 1500 Amount Sodium Chloride 0.9% 1, 1500 000 ml @ 130 mls/hr IV . Q7H42M [facility] Rx#:[id number] Oral 720 420 Output: Urine 700 850 Other: Voiding Method Diaper Diaper Diaper External Catheter External Catheter External Catheter # Voids 1 - Exam - Constitutional General appearance: Present: average body habitus, cooperative, no acute distress - EENT Eyes: Present: anicteric sclerae, EOMI, PERRLA, normal appearance ENT: Present: hearing grossly normal, normal oropharynx Ears: bilateral: normal - Neck Neck: Present: normal ROM. Absent: lymphadenopathy, rigidity, thyromegaly Carotids: negative: bruit present Thyroid: bilateral: normal size, negative: enlarged, nodule - Respiratory Respiratory: bilateral: CTA, negative: rales, rhonchi, wheezing - Cardiovascular Rhythm: regular Heart sounds: normal: S1, S2 Abnormal Heart Sounds: Absent: systolic murmur, diastolic murmur - Gastrointestinal General gastrointestinal: Present: normal bowel sounds, soft. Absent: distended, organomegaly, tenderness - Genitourinary Genitourinary Comment(s): deferred - Integumentary Integumentary: Present: normal turgor. Absent: jaundiced, rash, ulcer - Neurologic Neurologic: Present: CNII-XII intact. Absent: focal deficits - Musculoskeletal Musculoskeletal: Present: gait normal, strength equal bilaterally - Psychiatric Psychiatric: Present: A&O x's 3, appropriate affect, intact judgment & insight - Labs CBC & Chem 7: 01/19/21 07:13 01/19/21 11:59 Labs: Abnormal Lab Results - Last 24 Hours (Table) 01/19/21 01/19/21 01/20/21 Range/Units 16:28 20:18 01:12 POC Glucose (mg/dL) 282 H 166 H 144 H (75-99) mg/dL 01/20/21 01/20/21 Range/Units 06:09 11:41 POC Glucose (mg/dL) 112 H 233 H (75-99) mg/dL Assessment and Plan Assessment: altered mental status, possibly due to metabolic and toxic encephalopathy Elevated blood sugars possible hyperosmolar hyperglycemic syndrome nonketotic leukocytosis Lactic acidosis hyponatremia Generalized weakness Dehydration Gait dysfunction Shortness of breath Coronary artery disease History of chest pain and angina History of heart failure Diabetes mellitus 2, insulin-dependent, uncontrolled with hyperglycemia Sleep apnea Thyroid disorder Hypertension Hyperlipidemia Past medical history of myocardial infarction Osteoarthritis GERD past medical history of pacemaker site infection with replaced pacemaker in August 2020 full code Plan: Patient continues to be obtunded most likely a component of narcotics, Ativan, phenobarbital that was given in the ER and will monitor closely for resolution. Continue to monitor Accu-Cheks before meals and at bedtime and will resume insulins. Decrease IV fluid to prevent possible volume overload. Will repeat labs and monitor closely. Continue telemetry monitoring. Repeat troponin was increased and will consult cardiology. Patient does have a past medical history of pacemaker placement in heart failure in August of this year. Lactic acid has normalized and hyponatremia has resolved. Will have PT/OT evaluate the patient once more stable and more alert and will resume diet once awake. Due to multiple complex medical issues, prognosis is guarded.
[2021-01-21] MEDS: SODIUM CHLORIDE 0.9% 1,000 ML IV SCH ×2 (06:26→12:13)
[2021-01-21] MEDS: LEVOTHYROXINE 125 MCG TAB PO SCH (06:26)
[2021-01-21 06:35] LABS: Glucose,Whole Blood 80 mg/dL (75-99)
[2021-01-21] MEDS: INSULIN ASPART (NovoLOG) 100 UNIT/ML VIAL SQ SCH ×2 (06:41→12:17)
[2021-01-21] MEDS: PANTOPRAZOLE 40 MG/10 ML VIAL IV SCH (08:33)
[2021-01-21] MEDS: METOPROLOL TARTRATE 50 MG TAB PO SCH (08:33)
[2021-01-21] MEDS: lisinopriL 10 MG TAB PO SCH (08:33)
[2021-01-21] MEDS: TICAGRELOR 90 MG TAB PO SCH (08:33)
[2021-01-21 08:58] LABS: Basophils % (A) 0 %; Eosinophils % (A) 0 %; HCT 38.1 % (34.0-46.0); HGB 12.1 gm/dL (11.4-16.0); Lymphocytes # (A) 1.9 k/uL (1.0-4.8); Lymphocytes % (A) 24 %; MCH 28.1 pg (25.0-35.0); MCHC 31.9 g/dL (31.0-37.0); MCV 88.1 fL (80.0-100.0); Mean Platelet Volume 8.6; Monocytes # (A) 0.5 k/uL (0-1.0); Monocytes % (A) 6 %; Neutrophils # (A) 5.3 k/uL (1.3-7.7); Neutrophils % (A) 68 %; Platelet Count 121 k/uL (150-450); RBC 4.32 m/uL (3.80-5.40); RDW 15.5 % (11.5-15.5); WBC 7.9 k/uL (3.8-10.6)
[2021-01-21 09:03] LABS: African American GFR (CKD) >90 (>60 ml/min/1.73 sqM); Anion Gap 5 mmol/L; Blood Urea Nitrogen 10 mg/dL (7-17); Calcium 9.1 mg/dL (8.4-10.2); Carbon Dioxide 27 mmol/L (22-30); Chloride 107 mmol/L (98-107); Glucose 80 mg/dL (74-99); Non-African American GFR(CKD) >90 (>60 ml/min/1.73 sqM); Potassium 4.4 mmol/L (3.5-5.1); Sodium 139 mmol/L (137-145)
[2021-01-21 11:35] LABS: Glucose,Whole Blood 232 mg/dL (75-99)
[2021-01-21 12:26] VITALS: BP 136/72; PULSE 75; RESP 19; TEMP 98.2
[2021-01-21 13:23] VITALS: BMI 25.8
--- NOTE | 2021-01-22 09:32 | P.DS ---
Providers Date of admission: 01/18/21 00:07 Expected date of discharge: 01/21/21 Attending physician: Alyssa Ibarra Primary care physician: Medhat Asif [facility] Hospital Course: Final diagnosis altered mental status, possibly due to metabolic and toxic encephalopathy Elevated blood sugars possible hyperosmolar hyperglycemic syndrome nonketotic leukocytosis Lactic acidosis hyponatremia Generalized weakness Dehydration Gait dysfunction Shortness of breath Coronary artery disease History of chest pain and angina History of heart failure Diabetes mellitus 2, insulin-dependent, uncontrolled with hyperglycemia Sleep apnea Thyroid disorder Hypertension Hyperlipidemia Past medical history of myocardial infarction Osteoarthritis GERD past medical history of pacemaker site infection with replaced pacemaker in August 2020 full code Discharge disposition Patient is being discharged in a stable condition with guarded prognosis to home. Patient has been arranged for [facility] upon discharge. Patient will follow-up with Dr. Barcenas in the outpatient setting upon discharge. Total time taken is greater than 35 minutes. Hospital course 70-year-old female who was brought to the emergency department with feelings of increased weakness, shortness of breath, overall fatigue and not feeling well. Patient does have an extensive past medical history of coronary artery disease, angina, heart failure, diabetes mellitus, GERD, hyperlipidemia, hypertension, myocardial infarction, osteoarthritis, sleep apnea, thyroid disorder, bilateral macular degeneration, IBS, narcolepsy, gout, pacemaker removal is slight was infected in July 2020, pacemaker placed in August 2020, anxiety. Patientlabs on admission show a white blood count of 14.5, hemoglobin is 15.0, platelets are 231, sodium was 128 with a potassium of 5.2, BUN 25 and creatinine 0.74, glucose was 753 and plasma lactic acid was 4.1, magnesium 1.9 alk phos elevated at 144, initial troponin indeterminate at 0.027 and BNP 1150 with a TSH of 6.2. Urinalysis was done which showed some moderate blood otherwise negative. Urine drug screen was negative and COVID-19 was not detected. chest x-ray showed no active cardiopulmonary disease with a normal heart and no changes. EKG shows sinus tachycardia with possible left atrial enlargement and left ventricular hypertrophy otherwise abnormal. CT of the brain showing cerebral atrophy with no acute intracranial abnormalities and no significant change compared to previous exam with some mild hydrocephalus without change compared to previous exam. abdomen CT pelvis was also performed showing cortical thinning in the left kidney consistent with scarring and probably chronic pyelonephritis with no change and some mild interstitial infiltrates at the lung bases which are increased compared to old exam. Per nursing staff in the emergency department, patient was mildly altered and thrashing about in complaining of extreme pain and restlessness in the legs and has been given multiple medications including I am held all, IV Benadryl, IV Ativan, phenobarbital, and some morphine and is very difficult to arouse and obtunded at this time. Will consult cardiology as repeat troponin came back elevated. 01/20/2021 Patient is seen and evaluated and discussed with nursing staff. Patient has known coronary artery disease and was admitted to the hospital with change in mental status. Patient had a mildly elevated troponin. Along with this patient had elevated glucose and dehydration. From cardiology she was determined asymptomatic. Patient's mental status has improved significantly and patient is alert and oriented. Patient has no complaints nor are there any major changes from yesterday. Patient is determined to be hemodynamically stable and is cleared by cardiology, no further cardiac workup is needed. Blood sugars are reviewed and are stable; patient has been placed back on home schedule of insulin Mental status is markedly improved Await PT/OT evaluation for discharge planning This is a 62-year-old male who was recently admitted and was being closely monitored. 01/21/2021 Patient seen and evaluated in follow-up this morning alert and oriented 3 with family at the bedside. Patient is requesting to go home states she has been cleared by cardiology and will follow-up with them closely in the outpatient setting. Patient was seen and evaluated by PT/OT therapy recommending Homecare and this is being arranged with [facility] by case management. Patient resumed on home medications and encouraged the patient to closely monitor Accu- Cheks before meals and at bedtime and keep a diary for primary care follow-up. Recommend close outpatient follow-up this week with primary care provider. Currently no reports of chest pain, shortness of breath, or palpitations. P atient is afebrile. No reports of nausea or vomiting and patient is tolerating diet. Patient will be discharged home today. Guarded prognosis. GENERAL: The patient is alert and oriented x3, not in any acute distress. Well developed HEENT: Pupils are round and equally reacting to light. EOMI. No scleral icterus. No conjunctival pallor. Normocephalic, atraumatic. No pharyngeal erythema. No thyromegaly. CARDIOVASCULAR: S1 and S2 present. No murmurs, rubs, or gallops. PULMONARY: Chest is clear to auscultation, no wheezing or crackles. ABDOMEN: Soft, nontender, nondistended, normoactive bowel sounds. No palpable organomegaly. MUSCULOSKELETAL: No joint swelling or deformity. EXTREMITIES: No cyanosis, clubbing, or pedal edema. NEUROLOGICAL: Gross neurological examination did not reveal any focal deficits. SKIN: No rashes. no petechiae Please refer to medication reconciliation sheet for a list of medications. Patient Condition at Discharge: Stable Plan - Discharge Summary New Discharge Prescriptions: Continue Colchicine [Colcrys] 0.6 mg PO DAILY Ticagrelor [Brilinta] 90 mg PO BID Nitroglycerin Sl Tabs [Nitrostat] 0.4 mg SL Q5M PRN PRN Reason: Chest Pain Insulin Lispro [humaLOG Kwikpen] See Protocol SQ AC-TID Ezetimibe [Zetia] 10 mg PO HS DULoxetine HCL [Cymbalta] 60 mg PO BID Desloratadine [Clarinex] 5 mg PO DAILY Metoprolol Tartrate [Lopressor] 50 mg PO BID Levothyroxine Sodium [Levoxyl] 125 mcg PO DAILY Insulin Detemir [Levemir Flextouch Pen] 35 units SQ HS oxyCODONE-APAP 10-325MG [Percocet 10-325 mg] 1 tab PO BID PRN PRN Reason: Pain Lisinopril [Prinivil] 10 mg PO DAILY Discharge Medication List Colchicine [Colcrys] 0.6 mg PO DAILY 08/11/17 [History] Nitroglycerin Sl Tabs [Nitrostat] 0.4 mg SL Q5M PRN 08/11/17 [History] Ticagrelor [Brilinta] 90 mg PO BID 08/11/17 [History] DULoxetine HCL [Cymbalta] 60 mg PO BID 12/27/19 [History] Desloratadine [Clarinex] 5 mg PO DAILY 12/27/19 [History] Ezetimibe [Zetia] 10 mg PO HS 12/27/19 [History] Insulin Lispro [humaLOG Kwikpen] See Protocol SQ AC-TID 12/27/19 [History] Insulin Detemir [Levemir Flextouch Pen] 35 units SQ HS 07/29/20 [History] Levothyroxine Sodium [Levoxyl] 125 mcg PO DAILY 07/29/20 [History] Lisinopril [Prinivil] 10 mg PO DAILY 01/17/21 [History] Metoprolol Tartrate [Lopressor] 50 mg PO BID 01/17/21 [History] oxyCODONE-APAP 10-325MG [Percocet 10-325 mg] 1 tab PO BID PRN 01/17/21 [History] Follow up Appointment(s)/Referral(s): [facility], [NON-STAFF] - Medhat Asif DO [Primary Care Provider] - 01/25/21 2:20 pm ([place] [facility] with Katlyn) Patient Instructions/Handouts: Dehydration (DC), Diabetic Ketoacidosis (DC), Weakness (DC) Activity/Diet/Wound Care/Special Instructions: Activity Limited until follow-up Follow-up with primary care provider on discharge Follow-up with cardiology outpatient Continue taking medications as prescribed Continue to monitor blood sugars closely and keep a diary for primary care follow-up Continue consistent carbohydrate diet Continue with home care Discharge Disposition: HOME WITH HOME HEALTH SERVICES
== END 2021-01-21 15:36 | disposition home health service (06) | DRG 637 ==
LOC: EC 20:23 → 3SCARD 01-18 00:07
PROVIDERS: ADMIT Hospitalist; ATTEND Hospitalist
DX: E11.00 Type 2 diabetes mellitus with hyperosmolarity without nonketotic hyperglycemic-hyperosmolar coma (NKHHC) (principal); G93.41 Metabolic encephalopathy; G92.8 Other toxic encephalopathy; E87.1 Hypo-osmolality and hyponatremia; E87.2 Acidosis; N17.9 Acute kidney failure, unspecified; R42 Dizziness and giddiness; Z20.822 Contact with and (suspected) exposure to COVID-19; E07.9 Disorder of thyroid, unspecified; E11.65 Type 2 diabetes mellitus with hyperglycemia; E78.5 Hyperlipidemia, unspecified; E86.0 Dehydration; F41.9 Anxiety disorder, unspecified; G25.81 Restless legs syndrome; M54.9 Dorsalgia, unspecified; K21.9 Gastro-esophageal reflux disease without esophagitis; I11.0 Hypertensive heart disease with heart failure; I50.9 Heart failure, unspecified; G47.30 Sleep apnea, unspecified; M19.90 Unspecified osteoarthritis, unspecified site; I25.119 Atherosclerotic heart disease of native coronary artery with unspecified angina pectoris; Z88.0 Allergy status to penicillin; I25.2 Old myocardial infarction; Z79.02 Long term (current) use of antithrombotics/antiplatelets; Z79.4 Long term (current) use of insulin; Z79.890 Hormone replacement therapy; Z79.899 Other long term (current) drug therapy; Z87.442 Personal history of urinary calculi; Z95.0 Presence of cardiac pacemaker; Z95.5 Presence of coronary angioplasty implant and graft; Z82.49 Family history of ischemic heart disease and other diseases of the circulatory system
CPT/HCPCS: 36415; 70450; 71046; 74177; 80048; 80053; 80143; 80179; 80306; 81001; 82009; 82140; 82550; 82803; 82947; 83605; 83735; 83880; 83930; 83935; 84100; 84439; 84443; 84484; 85025; 85610; 85730; 87635; 93005; 93306; 96361; 96374; 96375; 99291

== ENCOUNTER 2021-08-23 15:01 | Emergency (ER) | payer MEDICARE, OTHER ==
[2021-08-23 15:06] VITALS: RESP 18
[2021-08-23 15:16] LABS: Glucose,Whole Blood 399 mg/dL (75-99)
--- NOTE | 2021-08-23 15:24 | ED ---
General Adult HPI - General Chief complaint: Neuro Symptoms/Deficit Stated complaint: Possible Stroke Time Seen by Provider: 08/23/21 15:06 Source: patient, EMS, RN notes reviewed, old records reviewed Mode of arrival: EMS Limitations: no limitations - History of Present Illness Initial comments: Patient is a 70-year-old female with past medical history remarkable for NPH, heart failure, diabetes, hypertension, prior MIs with cardiac stents in place p resents emergency Department complaining of strokelike symptoms. Possible history of atrial fibrillation on Coumadin, concern at this time this patient is uncertain if she is on warfarin but initially conveyed she was to EMS. He will clarify with when he arrives. Presents for strokelike symptoms. Has been struggling with elevated blood sugars over the last few days. She has been having intermittent slurring of speech at that time, however today noticed some right-sided facial droop as well as right arm weakness. Awoke and was normal around 9 AM and symptoms started shortly after that. Initially presented to her PCP and then was brought here for further evaluation. Presentation is approximately 6 hours after initial symptoms. She denies any other acute complaints at this time. Presents for further evaluation. Found history of normal pressure hydrocephalus on prior notes. - Related Data Home Medications Medication Instructions Recorded Confirmed Colchicine [Colcrys] 0.6 mg PO DAILY PRN 08/11/17 05/14/21 Nitroglycerin Sl Tabs [Nitrostat] 0.4 mg SL Q5M PRN 08/11/17 05/14/21 DULoxetine HCL [Cymbalta] 60 mg PO BID 12/27/19 05/14/21 Desloratadine [Clarinex] 5 mg PO DAILY PRN 12/27/19 05/14/21 Ezetimibe [Zetia] 10 mg PO HS 12/27/19 05/14/21 Insulin Lispro [humaLOG Kwikpen] See Protocol SQ AC-TID 12/27/19 05/14/21 Insulin Detemir [Levemir Flextouch 35 units SQ HS 07/29/20 05/14/21 Pen] Levothyroxine Sodium [Levoxyl] 125 mcg PO DAILY 07/29/20 05/14/21 Lisinopril [Prinivil] 10 mg PO DAILY 01/17/21 05/14/21 Furosemide [Lasix] 20 mg PO DAILY PRN 05/14/21 05/14/21 Gabapentin 300 mg PO BID 05/14/21 05/14/21 Lidocaine 5% Oint [Xylocaine 5% 1 applic TOPICAL DAILY PRN 05/14/21 05/14/21 Oint] Metoprolol Tartrate [Lopressor] 25 mg PO BID 05/14/21 05/14/21 Oxybutynin Chloride [Ditropan] 5 mg PO BID 05/14/21 05/14/21 Pramipexole [Mirapex] 0.25 mg PO DAILY 05/14/21 05/14/21 hydrOXYzine HCL 10 mg PO DAILY PRN 05/14/21 05/14/21 rOPINIRole HCL [Requip] 4 mg PO TID 05/14/21 05/14/21 Allergies Allergy/AdvReac Type Severity Reaction Status Date / Time Penicillins Allergy Rash/Hives Verified 05/14/21 10:53 Review of Systems ROS Statement: Those systems with pertinent positive or pertinent negative responses have been documented in the HPI. Review of Systems: CONST: Denies fever EYES: Denies blurry vision ENT: Denies nasal congestion C/V: Denies Chest pain RESP: Denies shortness of breath GI: Denies abdominal pain : Denies dysuria SKIN: Denies rash. MSK: Denies joint pain. NEURO: Denies headache ROS Other: All systems not noted in ROS Statement are negative. Past Medical History Past Medical History: Coronary Artery Disease (CAD), Chest Pain / Angina, Heart Failure, Diabetes Mellitus, Eye Disorder, GERD/Reflux, Hyperlipidemia, Hypertension, Myocardial Infarction (AL), Osteoarthritis (OA), Sleep Apnea/CPAP/BIPAP, Thyroid Disorder Additional Past Medical History / Comment(s): hx hypotension/cardiogenic shock, dizziness, junctional rhythm. Normal pressure hydrocephalus, neuropathy bilateral feet/toes, chronic back pain, RLS, embedded kidney stones, bilateral macular degeneration, IBS, narcolepsy, gout, SEE DR MORALES'S HISTORY AND PHYSICAL FOR CARDIAC HISTORY. PACEMAKER SITE INFECTED Last Myocardial Infarction Date:: 12/27/19 History of Any Multi-Drug Resistant Organisms: None Reported Past Surgical History: Back Surgery, EPS, Heart Catheterization With Stent, Joint Replacement, Orthopedic Surgery, Pacemaker, Tubal Ligation Additional Past Surgical History / Comment(s): 4 cardiac stents, low back surgery, brain shunt, colonoscopy, TOTAL LEFT KNEE. pacemaker removed 07/30/20 due to infection, Pacemaker placed in August 2020, Past Anesthesia/Blood Transfusion Reactions: Motion Sickness, Postoperative Nausea & Vomiting (PONV) Date of Last Stent Placement:: 12/27/19 Type of Cardiac Device: Permanent Pacemaker Device Placement Date:: MAR 2020 Past Psychological History: Anxiety Smoking Status: Never smoker Past Alcohol Use History: Occasional Past Drug Use History: None Reported - Past Family History Father History Unknown: Yes Family Medical History: Congestive Heart Failure (CHF), Hypertension Mother History Unknown: Yes Family Medical History: Congestive Heart Failure (CHF), Hypertension Brother(s) Family Medical History: Cancer, Myocardial Infarction (AL) Additional Family Medical History / Comment(s): One brother had an AL. Another brother had prostate cancer. General Exam - General Exam Comments Initial Comments: General: Appears in no acute distress. HEAD: Normal with no signs of head trauma. EYES: PERRLA, EOMI, conjunctiva normal, no discharge. Evils are 3 mm and equal bilaterally. ENT: Hearing grossly intact, normal oropharynx. RESPIRATORY: Clear breath sounds bilaterally. No wheezes, rales, or rhonchi. C/V: Regular rate and rhythm. S1 and S2 auscultated, no edema, peripheral pulses 2+ and intact throughout ABD: Abd is soft, nontender, nondistended EXT: Normal range of motion, no obvious deformity SKIN: No rashes or lesions observed on exposed skin. NEURO: Alert and oriented 4. NIH is approximately 3, for dysarthria, right lower facial droop, right hand material analyst weakness. GCS of 15. Limitations: no limitations Course Vital Signs 08/23/21 15:03 Pulse Rate 91 Respiratory 18 Rate Blood Pressure 97/85 O2 Sat by Pulse 98 Oximetry Medical Decision Making - Medical Decision Making Based on the patient's presentation and physical exam, I'm concerned for the patient having an acute stroke. Last known well was 9am and this morning which was 6 hours ago. NIH is currently 3 for dysarthria, right lower facial droop, as well as very mild right hand and arm weakness. Stroke pager was activated.I spoke with Dr. Sterling of neuro intervention who was in agreement with plan. EKG showed no signs of acute ischemia. Laboratory studies were remarkable for a mild hyponatremia of 131. Point of care blood sugar is slightly elevated to 406. Troponin is undetectable. Remainder the labs currently are unremarkable. CT brain revealed findings concerning for subacute or chronic subdural hematomas that are new from prior CT in April. They're bilateral, with the largest area measures 7 mm. No midline shift. No new hydrocephalus. Ventricular catheters in stable position. I discussed this case again with Dr. Sterling reviewed the imaging. Patient's neuro exam at this time is an NIH of 0. He recommended transfer for neurosurgery monitoring and he will follow along as a medical cost consultant. We have no neurosurgery here in-house. He believes that the subdurals are likely secondary to over drainage from the RUG DRY ROOM ATTENDANT shunt, as the patient has no recent traumas and is not on blood thinners. Family is uncertain where hair neurosurgery was completed. Therefore we will transfer to [facility]. Family was in agreement this plan including . I reevaluated the patient multiple times and she remains in stable condition. NIH remains 0. I spoke with [facility], who agreed to accept the patient. Acc epting physician is Dr. Barroso. She was transferred in serious condition via ALS ambulance. - Lab Data Result diagrams: 08/23/21 15:16 08/23/21 15:21 Lab Results 08/23/21 08/23/21 08/23/21 Range/Units 15:12 15:16 15:16 WBC 7.1 (3.8-10.6) k/uL RBC 4.61 (3.80-5.40) m/uL Hgb 13.0 (11.4-16.0) gm/dL Hct 41.3 (34.0-46.0) % MCV 89.4 (80.0-100.0) fL MCH 28.1 (25.0-35.0) pg MCHC 31.4 (31.0-37.0) g/dL RDW 14.8 (11.5-15.5) % Plt Count 153 (150-450) k/uL MPV 8.7 Neutrophils % 69 % Lymphocytes % 20 % Monocytes % 7 % Eosinophils % 0 % Basophils % 0 % Neutrophils # 4.9 (1.3-7.7) k/uL Lymphocytes # 1.4 (1.0-4.8) k/uL Monocytes # 0.5 (0-1.0) k/uL Eosinophils # 0.0 (0-0.7) k/uL Basophils # 0.0 (0-0.2) k/uL PT 10.3 (9.0-12.0) sec INR 0.9 (<1.2) APTT 23.9 (22.0-30.0) sec Sodium (137-145) mmol/L Potassium (3.5-5.1) mmol/L Chloride (98-107) mmol/L Carbon Dioxide (22-30) mmol/L Anion Gap mmol/L BUN (7-17) mg/dL Creatinine (0.52-1.04) mg/dL Est GFR (CKD-EPI)AfAm (>60 ml/min/1.73 sqM) Est GFR (CKD-EPI)NonAf (>60 ml/min/1.73 sqM) Glucose (74-99) mg/dL POC Glucose (mg/dL) 399 H (75-99) mg/dL POC Glu Electrician Wiring ID Marte, Diamond Calcium (8.4-10.2) mg/dL Total Bilirubin (0.2-1.3) mg/dL AST (14-36) U/L ALT (4-34) U/L Alkaline Phosphatase (38-126) U/L Troponin I (0.000-0.034) ng/mL Total Protein (6.3-8.2) g/dL Albumin (3.5-5.0) g/dL 08/23/21 08/23/21 Range/Units 15:16 15:21 WBC (3.8-10.6) k/uL RBC (3.80-5.40) m/uL Hgb (11.4-16.0) gm/dL Hct (34.0-46.0) % MCV (80.0-100.0) fL MCH (25.0-35.0) pg MCHC (31.0-37.0) g/dL RDW (11.5-15.5) % Plt Count (150-450) k/uL MPV Neutrophils % % Lymphocytes % % Monocytes % % Eosinophils % % Basophils % % Neutrophils # (1.3-7.7) k/uL Lymphocytes # (1.0-4.8) k/uL Monocytes # (0-1.0) k/uL Eosinophils # (0-0.7) k/uL Basophils # (0-0.2) k/uL PT (9.0-12.0) sec INR (<1.2) APTT (22.0-30.0) sec Sodium 131 L (137-145) mmol/L Potassium 4.1 (3.5-5.1) mmol/L Chloride 98 (98-107) mmol/L Carbon Dioxide 25 (22-30) mmol/L Anion Gap 8 mmol/L BUN 21 H (7-17) mg/dL Creatinine 0.83 (0.52-1.04) mg/dL Est GFR (CKD-EPI)AfAm 83 (>60 ml/min/1.73 sqM) Est GFR (CKD-EPI)NonAf 72 (>60 ml/min/1.73 sqM) Glucose 406 H (74-99) mg/dL POC Glucose (mg/dL) (75-99) mg/dL POC Glu Electrician Wiring ID Calcium 8.7 (8.4-10.2) mg/dL Total Bilirubin 0.6 (0.2-1.3) mg/dL AST 28 (14-36) U/L ALT 23 (4-34) U/L Alkaline Phosphatase 109 (38-126) U/L Troponin I <0.012 (0.000-0.034) ng/mL Total Protein 6.4 (6.3-8.2) g/dL Albumin 3.8 (3.5-5.0) g/dL - EKG Data -: EKG Interpreted by Me EKG Comments: 12-lead Electrocardiogram Interpretation Note EKG was reviewed and interpreted by myself. 12-lead ECG performed at 1510 is interpreted by me as revealing normal sinus rhythm at a rate of 85 beats per minute. [place] is normal. [place] intervals 165 ms, QR cheondoism is 100 ms, QTc is 393 ms.. Isolated T-wave inversion in lead III. No acute T-wave or ST segment abnormalities.. R wave progression across the precordium was slightly delayed. By my interpretation this EKG is non-diagnostic for acute ischemia. Critical Care Time Total Critical Care Time: 35 Critical Care Time: Upon my evaluation, this patient had a high probability of imminent or life- threatening deterioration due to stroke pager activation, TIA, subacute and chronic subdural hematomas in the presence of RUG DRY ROOM ATTENDANT shunt, which required my direct attention, intervention, and personal management. I have personally provided 35 minutes of critical care time exclusive of time spent on separately billable procedures. Time includes review of laboratory data, radiology results, discussion with consultants, and monitoring for potential decompensation. Interventions were performed as documented in my note. Disposition Clinical Impression: TIA (transient ischemic attack), Chronic subdural hematoma, Subacute subdural hematoma, S/P RUG DRY ROOM ATTENDANT shunt Disposition: OTHER INSTITUTION NOT DEFINED Condition: Serious Referrals: Medhat Asif DO [Primary Care Provider] - 1-2 days Time of Disposition: 16:34 - Out of Hospital Transfer - Req. Specs Out of Hospital Transfer - Requested Specifics: Other Emergency Center (Transferred to [facility] for escalation of care. Requires Neurosurgery.)
[2021-08-23 15:25] LABS: Basophils % (A) 0 %; Eosinophils % (A) 0 %; HCT 41.3 % (34.0-46.0); Lymphocytes # (A) 1.4 k/uL (1.0-4.8); Lymphocytes % (A) 20 %; MCH 28.1 pg (25.0-35.0); MCHC 31.4 g/dL (31.0-37.0); MCV 89.4 fL (80.0-100.0); Mean Platelet Volume 8.7; Monocytes # (A) 0.5 k/uL (0-1.0); Monocytes % (A) 7 %; Neutrophils # (A) 4.9 k/uL (1.3-7.7); Neutrophils % (A) 69 %; Platelet Count 153 k/uL (150-450); RBC 4.61 m/uL (3.80-5.40); RDW 14.8 % (11.5-15.5); WBC 7.1 k/uL (3.8-10.6)
[2021-08-23 15:39] LABS: INR 0.9 (<1.2); Partial Thromboplastin Time 23.9 sec (22.0-30.0); Prothrombin Time 10.3 sec (9.0-12.0)
--- NOTE | 2021-08-23 15:41 | CT ---
EXAMINATION TYPE: CT brain wo con for TPA DATE OF EXAM: 08/23/2021 HISTORY: Neuro deficits, code stroke CT DLP: 1118.6 mGycm. Automated Exposure Control for Dose Reduction was Utilized. TECHNIQUE: CT scan of the head is performed without contrast. COMPARISON: CT brain 06/11/2021. FINDINGS: Persistent right parietal [place] hole with ASSISTANT COMMUNITY MANAGER shunt catheter terminating near midline of the lateral ventricles. There are new subdural fluid collections bilaterally slightly greater in size on the right greater than CSF but less dense than acute intracranial hemorrhage. Slightly higher density on the right. No midline shift. Ventricular size is stable. The globes are intact and the visualized sinuses are clear. IMPRESSION: New bilateral subdural hematomas from most recent CT. Left-sided is subacute or chronic i n age. Right side is acute on chronic or more early subacute and slightly larger in size measuring up to 7 mm. No midline shift. No new hydrocephalus. Ventricular catheter position stable. Results given to ordering emergency care physician via telephone at time of dictation.
[2021-08-23 15:50] LABS: ALT 23 U/L (4-34); AST 28 U/L (14-36); African American GFR (CKD) 83 (>60 ml/min/1.73 sqM); Albumin 3.8 g/dL (3.5-5.0); Alkaline Phosphatase 109 U/L (38-126); Anion Gap 8 mmol/L; Blood Urea Nitrogen 21 mg/dL (7-17); Calcium 8.7 mg/dL (8.4-10.2); Carbon Dioxide 25 mmol/L (22-30); Chloride 98 mmol/L (98-107); Glucose 406 mg/dL (74-99); Non-African American GFR(CKD) 72 (>60 ml/min/1.73 sqM); Potassium 4.1 mmol/L (3.5-5.1); Sodium 131 mmol/L (137-145); Total Bilirubin 0.6 mg/dL (0.2-1.3); Total Protein 6.4 g/dL (6.3-8.2)
--- NOTE | 2021-08-23 15:54 | CT ---
EXAMINATION TYPE: CT angio head neck DATE OF EXAM: 08/23/2021 HISTORY: Code stroke COMPARISON: None. CT DLP: 637.3 mGycm. Automated Exposure Control for Dose Reduction was Utilized. TECHNIQUE: CTA scan of the head and neck is performed with IV Contrast, patient injected with 65 mL of Isovue 370, axial images are obtained, coronal and sagittal reformatted images are reviewed. 3D re constructed images are created on an independent workstation and reviewed. FINDINGS: Carotid/Vascular Structures: Normal 3 vessel origin from the aortic arch. No significant plaque or st enosis along the common carotid arteries bilaterally. Mild peripheral mixed plaque right carotid bulb extends into proximal internal carotid artery without significant stenosis. There is more moderate t o severe mixed plaque in the left proximal internal carotid artery causing stenosis approaching but u nder 50%. Patent external carotid arteries bilaterally without significant stenosis. There are codominant vertebral arteries filling the basilar artery. There is no significant focal josé miguel nosis or aneurysm in the posterior circulation. There are patent bilateral posterior communicating ar teries seen. Anterior circulation shows patent anterior communicating artery. There is no significant focal stenosis or aneurysm seen. Other: Partial visualization of right-sided pacemaker device along with the known right-sided ROAD EQUIPMENT OPERATOR shun t catheter extending over the anterior upper thorax. Multilevel spurring in the cervicothoracic spine is seen. IMPRESSION: No significant stenosis in the common or internal carotid arteries bilaterally. No signi ficant stenosis or aneurysm at the level of the [place]. NASCET criteria was used in interpretation of this exam?
--- NOTE | 2021-08-23 16:48 | XR ---
EXAMINATION TYPE: XR chest 2V DATE OF EXAM: 08/23/2021 COMPARISON: 01/17/2021 HISTORY: Weakness TECHNIQUE: Frontal and lateral views of the chest are obtained. Findings: The lungs are clear consolidative, interstitial or masslike opacity. There is no pleural effusion, pleural thickening or pneumothorax. The heart, pulmonary vasculature, mediastinum and hilum appear normal. There is a 2-lead cardiac pace maker. There is a spinal stimulator in the lower thoracic spine which was not present on the prior study. Th e osseous structures are otherwise intact. IMPRESSION: No acute cardiopulmonary disease.
[2021-08-23 17:45] VITALS: BP 181/93; PULSE 73
== END 2021-08-23 17:50 | disposition other institution (70) ==
LOC: EC 15:01
DX: S06.5X9A Traumatic subdural hemorrhage with loss of consciousness of unspecified duration, initial encounter (principal); G45.9 Transient cerebral ischemic attack, unspecified; I11.0 Hypertensive heart disease with heart failure; E11.9 Type 2 diabetes mellitus without complications; Z79.83 Long term (current) use of bisphosphonates; Z79.1 Long term (current) use of non-steroidal anti-inflammatories (NSAID); K21.9 Gastro-esophageal reflux disease without esophagitis; E07.9 Disorder of thyroid, unspecified; Z88.0 Allergy status to penicillin; X58.XXXA Exposure to other specified factors, initial encounter
CPT/HCPCS: 99285 ×2; 36415; 93005; 80053; 82009; 84484; 85025; 85610; 85730; 71046; 70496; 70450; 70498; Q9967

== ENCOUNTER 2022-08-08 08:07 | Emergency (ER) | payer MEDICARE, OTHER ==
[2022-08-08 08:12] VITALS: RESP 16
[2022-08-08] MEDS ORDERED: FAMOTIDINE 20 MG/2 ML VIAL IV STA (08:27)
[2022-08-08] MEDS ORDERED: SODIUM CHLORIDE 0.9% 1,000 ML IV STA (08:27)
[2022-08-08] MEDS ORDERED: DICYCLOMINE 10 MG/ML 2 ML AMP IM STA (08:27)
--- NOTE | 2022-08-08 08:30 | ED ---
General Adult HPI - General Chief complaint: Abdominal Pain Stated complaint: Abd pain Time Seen by Provider: 08/08/22 08:13 Source: patient, RN notes reviewed Mode of arrival: ambulatory Limitations: no limitations - History of Present Illness Initial comments: Patient is a pleasant 71-year-old female presenting to the emergency department with concerns for abdominal discomfort. Symptoms have been intermittent over the past month or so. No associated nausea vomiting. patient or diarrhea. No history of similar symptoms previously. No fevers. Discomfort is moderate at this time. - Related Data Home Medications Medication Instructions Recorded Confirmed Colchicine [Colcrys] 0.6 mg PO DAILY PRN 08/11/17 05/14/21 Nitroglycerin Sl Tabs [Nitrostat] 0.4 mg SL Q5M PRN 08/11/17 05/14/21 DULoxetine HCL [Cymbalta] 60 mg PO BID 12/27/19 05/14/21 Desloratadine [Clarinex] 5 mg PO DAILY PRN 12/27/19 05/14/21 Ezetimibe [Zetia] 10 mg PO HS 12/27/19 05/14/21 Insulin Lispro [humaLOG Kwikpen] See Protocol SQ AC-TID 12/27/19 05/14/21 Insulin Detemir [Levemir Flextouch 35 units SQ HS 07/29/20 05/14/21 Pen] Levothyroxine Sodium [Levoxyl] 125 mcg PO DAILY 07/29/20 05/14/21 lisinopriL [Prinivil] 10 mg PO DAILY 01/17/21 05/14/21 Furosemide [Lasix] 20 mg PO DAILY PRN 05/14/21 05/14/21 Gabapentin 300 mg PO BID 05/14/21 05/14/21 Lidocaine 5% Oint [Xylocaine 5% 1 applic TOPICAL DAILY PRN 05/14/21 05/14/21 Oint] Metoprolol Tartrate [Lopressor] 25 mg PO BID 05/14/21 05/14/21 Oxybutynin Chloride [Ditropan] 5 mg PO BID 05/14/21 05/14/21 Pramipexole [Mirapex] 0.25 mg PO DAILY 05/14/21 05/14/21 hydrOXYzine HCL 10 mg PO DAILY PRN 05/14/21 05/14/21 rOPINIRole HCL [Requip] 4 mg PO TID 05/14/21 05/14/21 Allergies Allergy/AdvReac Type Severity Reaction Status Date / Time Penicillins Allergy Rash/Hives Verified 08/08/22 08:09 Review of Systems ROS Statement: Those systems with pertinent positive or pertinent negative responses have been documented in the HPI. ROS Other: All systems not noted in ROS Statement are negative. Constitutional: Denies: fever Eyes: Denies: eye pain ENT: Denies: ear pain Respiratory: Denies: cough Cardiovascular: Denies: chest pain Endocrine: Denies: fatigue Gastrointestinal: Reports: as per HPI, abdominal pain. Denies: nausea, vomiting, diarrhea, constipation Genitourinary: Denies: dysuria Musculoskeletal: Denies: back pain Past Medical History Past Medical History: Coronary Artery Disease (CAD), Chest Pain / Angina, Heart Failure, Diabetes Mellitus, Eye Disorder, GERD/Reflux, Hyperlipidemia, Hypertension, Myocardial Infarction (UT), Osteoarthritis (OA), Sleep Apnea/CPAP/ BIPAP, Thyroid Disorder Additional Past Medical History / Comment(s): hx hypotension/cardiogenic shock, dizziness, junctional rhythm. Normal pressure hydrocephalus, neuropathy bilateral feet/toes, chronic back pain, RLS, embedded kidney stones, bilateral macular degeneration, IBS, narcolepsy, gout, SEE DR MORALES'S HISTORY AND PHYSICAL FOR CARDIAC HISTORY. PACEMAKER SITE INFECTED Last Myocardial Infarction Date:: 12/27/19 History of Any Multi-Drug Resistant Organisms: None Reported Past Surgical History: Back Surgery, EPS, Heart Catheterization With Stent, Joint Replacement, Orthopedic Surgery, Pacemaker, Tubal Ligation Additional Past Surgical History / Comment(s): 4 cardiac stents, low back surgery, brain shunt, colonoscopy, TOTAL LEFT KNEE. pacemaker removed 07/30/20 due to infection, Pacemaker placed in August 2020, Past Anesthesia/Blood Transfusion Reactions: Motion Sickness, Postoperative Nausea & Vomiting (PONV) Date of Last Stent Placement:: 12/27/19 Type of Cardiac Device: Permanent Pacemaker Device Placement Date:: MAR 2020 Past Psychological History: Anxiety Smoking Status: Never smoker Past Alcohol Use History: Occasional Past Drug Use History: None Reported - Past Family History Father History Unknown: Yes Family Medical History: Congestive Heart Failure (CHF), Hypertension Mother History Unknown: Yes Family Medical History: Congestive Heart Failure (CHF), Hypertension Brother(s) Family Medical History: Cancer, Myocardial Infarction (UT) Additional Family Medical History / Comment(s): One brother had an UT. Another brother had prostate cancer. General Exam Limitations: no limitations General appearance: alert, in no apparent distress Head exam: Present: normocephalic Eye exam: Present: normal appearance Neck exam: Present: normal inspection Respiratory exam: Present: normal lung sounds bilaterally Cardiovascular Exam: Present: regular rate, normal rhythm Expanded Peripheral pulses: 2+: Posterior Tibialis (R), Posterior Tibialis (L), Dorsalis Pedis (R), Dorsalis Pedis (L) GI/Abdominal exam: Present: soft, tenderness (Mild epigastric tenderness, mild lower abdominal tenderness), normal bowel sounds. Absent: distended, guarding, rebound, rigid, pulsatile mass Extremities exam: Present: normal inspection Neurological exam: Present: alert Psychiatric exam: Present: normal affect, normal mood Skin exam: Present: normal color Course Vital Signs 08/08/22 08/08/22 08:09 10:27 Temperature 98 F 98.0 F Pulse Rate 93 72 Respiratory 16 16 Rate Blood Pressure 160/96 159/92 O2 Sat by Pulse 96 99 Oximetry Medical Decision Making - Medical Decision Making Was pt. sent in by a medical professional or institution (, PA, LOSS CONTROL ENGINEER, urgent care, hospital, or fci...) When possible be specific @ -No Did you speak to anyone other than the patient for history (EMS, parent, family, police, friend...)? What history was obtained from this source @ - is present and helps provide history including onset Did you review nursing and triage notes (agree or disagree)? Why? @ -I reviewed and agree with nursing and triage notes Were old charts reviewed (outside hosp., previous admission, EMS record, old EKG, old radiological studies, urgent care reports/EKG's, fci records)? Report findings @ -No old charts were reviewed Differential Diagnosis (chest pain, altered mental status, abdominal pain women, abdominal pain men, vaginal bleeding, weakness, fever, dyspnea, syncope, headache, dizziness, GI bleed, back pain, seizure, CVA, palpatations, mental health)? @ -Differential Abdominal Pain Women: Appendicitis, Cholecystitis, diverticulosis, ischemic bowel, pancreatitis, hepatitis, UTI, gastroenteritis, AAA, incarcerated hernia, bowel obstruction, constipation, inflammatory bowel, hepatitis, peptic ulcer disease, splenic infarction, perforated viscus, vulvitis, ovarian torsion, PID, kidney stone, placenta abruption, this is not meant to be an all-inclusive list EKG interpreted by me (3pts min.). @ -As above X-rays interpreted by me (1pt min.). @ -None done CT interpreted by me (1pt min.). @ -Report reviewed U/S interpreted by me (1pt. min.). @ -None done What testing was considered but not performed or refused? (CT, X-rays, U/S, labs)? Why? @ -None What meds were considered but not given or refused? Why? @ -None Did you discuss the management of the patient with other professionals (professionals i.e. , PA, LOSS CONTROL ENGINEER, lab, RT, psych nurse, social media community manager, commercial representative, teacher, weapons electrical engineering officer, housing case manager)? Give summary @ -No Was smoking cessation discussed for >3mins.? @ -No Was critical care preformed (if so, how long)? @ -No Were there social determinants of health that impacted care today? How? (Homelessness, low income, unemployed, alcoholism, drug addiction, transportation, low edu. Level, literacy, decrease access to med. care, usp, rehab)? @ -No Was there de-escalation of care discussed even if they declined (Discuss DNR or withdrawal of care, Hospice)? DNR status @ -No What co-morbidities impacted this encounter? (DM, HTN, Smoking, COPD, CAD, Cancer, CVA, ARF, Chemo, Hep., AIDS, mental health diagnosis, sleep apnea, morbid obesity)? @ -None Was patient admitted / discharged? Hospital course, mention meds given and route, prescriptions, significant lab abnormalities, going to OR and other pertinent info. @ -Patient reevaluated and feeling much better. Abdomen soft and nontender. Patient offered enema or suppository however refuses both. Patient is receptive to something by mouth. Patient will receive lactulose prior to discharge. Undiagnosed new problem with uncertain prognosis? @ -No Drug Therapy requiring intensive monitoring for toxicity (Heparin, Nitro, Insulin, Cardizem)? @ -No Were any procedures done? @ -No Diagnosis/symptom? @ -Abdominal pain Acute, or Chronic, or Acute on Chronic? @ -Acute Uncomplicated (without systemic symptoms) or Complicated (systemic symptoms)? @ -default Side effects of treatment? @ -No Exacerbation, Progression, or Severe Exacerbation? @ -No Poses a threat to life or bodily function? How? (Chest pain, [place], UT, pneumonia, PE, COPD, DKA, ARF, appy, cholecystitis, CVA, Diverticulitis, Homicidal, Suicidal, threat to staff... and all critical care pts) @ -No - Lab Data Result diagrams: 08/08/22 08:42 08/08/22 08:42 Lab Results 08/08/22 08/08/22 08/08/22 Range/Units 08:27 08:42 08:42 WBC 7.2 (3.8-10.6) k/uL RBC 4.46 (3.80-5.40) m/uL Hgb 13.1 (11.4-16.0) gm/dL Hct 38.4 (34.0-46.0) % MCV 86.2 (80.0-100.0) fL MCH 29.4 (25.0-35.0) pg MCHC 34.1 (31.0-37.0) g/dL RDW 14.1 (11.5-15.5) % Plt Count 141 L (150-450) k/uL MPV 8.8 Neutrophils % 64 % Lymphocytes % 25 % Monocytes % 6 % Eosinophils % 0 % Basophils % 0 % Neutrophils # 4.6 (1.3-7.7) k/uL Lymphocytes # 1.8 (1.0-4.8) k/uL Monocytes # 0.5 (0-1.0) k/uL Eosinophils # 0.0 (0-0.7) k/uL Basophils # 0.0 (0-0.2) k/uL PT 10.6 (9.0-12.0) sec INR 1.0 (<1.2) APTT 28.0 (22.0-30.0) sec Sodium (137-145) mmol/L Potassium (3.5-5.1) mmol/L Chloride (98-107) mmol/L Carbon Dioxide (22-30) mmol/L Anion Gap mmol/L BUN (7-17) mg/dL Creatinine (0.52-1.04) mg/dL Est GFR (CKD-EPI)AfAm (>60 ml/min/1.73 sqM) Est GFR (CKD-EPI)NonAf (>60 ml/min/1.73 sqM) Glucose (74-99) mg/dL Calcium (8.4-10.2) mg/dL Total Bilirubin (0.2-1.3) mg/dL AST (14-36) U/L ALT (4-34) U/L Alkaline Phosphatase (38-126) U/L Total Protein (6.3-8.2) g/dL Albumin (3.5-5.0) g/dL Amylase (30-110) U/L Lipase (23-300) U/L Urine Color Yellow Urine Appearance Clear (Clear) Urine pH 7.0 (5.0-8.0) Ur Specific [place] 1.050 H (1.001-1.035) Urine Protein 1+ H (Negative) Urine Glucose (UA) Negative (Negative) Urine Ketones Negative (Negative) Urine Blood Negative (Negative) Urine Nitrite Negative (Negative) Urine Bilirubin Negative (Negative) Urine Urobilinogen 3.0 (<2.0) mg/dL Ur Leukocyte Esterase Negative (Negative) Urine RBC 4 (0-5) /hpf Urine WBC 1 (0-5) /hpf Ur Squamous Epith Cells 1 (0-4) /hpf Urine Bacteria Occasional H (None) /hpf Urine Mucus Rare H (None) /hpf 08/08/22 Range/Units 08:42 WBC (3.8-10.6) k/uL RBC (3.80-5.40) m/uL Hgb (11.4-16.0) gm/dL Hct (34.0-46.0) % MCV (80.0-100.0) fL MCH (25.0-35.0) pg MCHC (31.0-37.0) g/dL RDW (11.5-15.5) % Plt Count (150-450) k/uL MPV Neutrophils % % Lymphocytes % % Monocytes % % Eosinophils % % Basophils % % Neutrophils # (1.3-7.7) k/uL Lymphocytes # (1.0-4.8) k/uL Monocytes # (0-1.0) k/uL Eosinophils # (0-0.7) k/uL Basophils # (0-0.2) k/uL PT (9.0-12.0) sec INR (<1.2) APTT (22.0-30.0) sec Sodium 138 (137-145) mmol/L Potassium 4.1 (3.5-5.1) mmol/L Chloride 101 (98-107) mmol/L Carbon Dioxide 31 H (22-30) mmol/L Anion Gap 6 mmol/L BUN 13 (7-17) mg/dL Creatinine 0.60 (0.52-1.04) mg/dL Est GFR (CKD-EPI)AfAm >90 (>60 ml/min/1.73 sqM) Est GFR (CKD-EPI)NonAf >90 (>60 ml/min/1.73 sqM) Glucose 147 H (74-99) mg/dL Calcium 9.2 (8.4-10.2) mg/dL Total Bilirubin 0.8 (0.2-1.3) mg/dL AST 23 (14-36) U/L ALT 22 (4-34) U/L Alkaline Phosphatase 114 (38-126) U/L Total Protein 6.7 (6.3-8.2) g/dL Albumin 3.9 (3.5-5.0) g/dL Amylase 40 (30-110) U/L Lipase 67 (23-300) U/L Urine Color Urine Appearance (Clear) Urine pH (5.0-8.0) Ur Specific [place] (1.001-1.035) Urine Protein (Negative) Urine Glucose (UA) (Negative) Urine Ketones (Negative) Urine Blood (Negative) Urine Nitrite (Negative) Urine Bilirubin (Negative) Urine Urobilinogen (<2.0) mg/dL Ur Leukocyte Esterase (Negative) Urine RBC (0-5) /hpf Urine WBC (0-5) /hpf Ur Squamous Epith Cells (0-4) /hpf Urine Bacteria (None) /hpf Urine Mucus (None) /hpf Disposition Clinical Impression: Abdominal pain Disposition: HOME SELF-CARE Condition: Stable Instructions (If sedation given, give patient instructions): Abdominal Pain (ED) Additional Instructions: Please do follow-up with your primary care physician in the next day or 2 for recheck. Return for increased pain, vomiting, fevers, worsening or changing symptoms or any other concerns. Is patient prescribed a controlled substance at d/c from ED?: No Referrals: Medhat Asif DO [Primary Care Provider] - 1-2 days Time of Disposition: 11:35
[2022-08-08 08:52] LABS: Basophils % (A) 0 %; Eosinophils % (A) 0 %; HCT 38.4 % (34.0-46.0); HGB 13.1 gm/dL (11.4-16.0); Lymphocytes # (A) 1.8 k/uL (1.0-4.8); Lymphocytes % (A) 25 %; MCH 29.4 pg (25.0-35.0); MCHC 34.1 g/dL (31.0-37.0); MCV 86.2 fL (80.0-100.0); Mean Platelet Volume 8.8; Monocytes # (A) 0.5 k/uL (0-1.0); Monocytes % (A) 6 %; Neutrophils # (A) 4.6 k/uL (1.3-7.7); Neutrophils % (A) 64 %; Platelet Count 141 k/uL (150-450); RBC 4.46 m/uL (3.80-5.40); RDW 14.1 % (11.5-15.5); WBC 7.2 k/uL (3.8-10.6)
[2022-08-08 09:05] LABS: ALT 22 U/L (4-34); AST 23 U/L (14-36); African American GFR (CKD) >90 (>60 ml/min/1.73 sqM); Albumin 3.9 g/dL (3.5-5.0); Alkaline Phosphatase 114 U/L (38-126); Amylase 40 U/L (30-110); Anion Gap 6 mmol/L; Blood Urea Nitrogen 13 mg/dL (7-17); Calcium 9.2 mg/dL (8.4-10.2); Carbon Dioxide 31 mmol/L (22-30); Chloride 101 mmol/L (98-107); Glucose 147 mg/dL (74-99); Lipase 67 U/L (23-300); Non-African American GFR(CKD) >90 (>60 ml/min/1.73 sqM); Potassium 4.1 mmol/L (3.5-5.1); Sodium 138 mmol/L (137-145); Total Bilirubin 0.8 mg/dL (0.2-1.3); Total Protein 6.7 g/dL (6.3-8.2)
[2022-08-08 09:22] LABS: Prothrombin Time 10.6 sec (9.0-12.0)
--- NOTE | 2022-08-08 10:09 | CT ---
EXAMINATION TYPE: CT abdomen pelvis w con DATE OF EXAM: 08/08/2022 COMPARISON: NONE HISTORY: 71-year-old female Intermittent abdominal pain x2 weeks. TECHNIQUE: Contiguous axial scanning of the abdomen and pelvis following administration of 100 ml Omn ipaque 300 IV contrast. Delayed images through the kidneys and coronal/sagittal reconstructions perf ormed. CT DLP: 1110 mGycm Automated exposure control for dose reduction was used. FINDINGS: Heart upper limits of normal in size. Extensive three-vessel coronary calcifications are present. Rig ht ventricular pacer lead. Prominent dependent lower lung opacities, likely dependent atelectasis. No pleural effusion. No focal liver lesion or biliary ductal dilatation. Portal venous system is patent. Gallbladder mildly hydropic at 4.1 cm wide but without any surrounding inflammation. Mild thickening of the left adrenal gland without discrete nodularity, unchanged. Right adrenal gland, right kidney, spleen, and atrophic pancreas show no gross antibody. Multiple left-sided renal calculi measuring up to 1.7 cm. No hydronephrosis. Symmetric uptake and exc retion of contrast from both kidneys. Moderate atherosclerotic calcifications infrarenal abdominal aorta. No dilated small bowel, free fluid, or free air. No mesenteric or retroperitoneal lymphadenopathy. Normal appendix. Moderate stool burden. Prominent stool distending the rectum up to 5.7 cm wide. The re may be mild rectal wall thickening here. Some skin and subcutaneous soft tissue thickening overlying the distal coccygeal segments along the u pper margin of the gluteal crease, axial image 79. Correlate to exclude any early ulcer or cellulitis . Mild to moderate circumferential bladder wall thickening. Uterus anteverted with a 1.0 cm calcified f undal fibroid. 1.4 cm cyst redemonstrated right ovary. No abnormal fluid collection the pelvis or pel michael lymphadenopathy. Bones: Advanced multilevel spondylotic changes in the lumbar spine. Spinal stimulator array extending into the lower thoracic spinal canal. Postsurgical change L4-L5 posterior and interbody fusion. Dege nerated dextroconvex scoliosis. IMPRESSION: 1. MILDLY HYDROPIC GALLBLADDER LIKELY DUE TO FASTING STATE. IF RIGHT UPPER QUADRANT PAIN OR CONCERN F OR EARLY ACUTE CHOLECYSTITIS, HIDA SCAN OR GALLBLADDER ULTRASOUND. 2. Nonobstructive left-sided nephrolithiasis measuring up to 1.7 cm. 3. Mild to moderate circumferential bladder wall thickening may be chronic for the patient. Correlate to exclude cystitis. 4. Stool distending the rectum up to 5.7 cm wide. Correlate to exclude constipation. Mild rectal wall thickening here may reflect a nonspecific mild distal colitis.
[2022-08-08 10:28] VITALS: TEMP 98
[2022-08-08 11:04] LABS: Appearance,Urine Clear (Clear); Bacteria,Urine Occasional /hpf; Bilirubin,Urine Negative (Negative); Blood,Urine Negative (Negative); Color,Urine Yellow; Glucose,Urine (UA) Negative (Negative); Ketones,Urine Negative (Negative); Leukocyte Esterase,Urine Negative (Negative); Mucus,Urine Rare /hpf; Nitrite,Urine Negative (Negative); Protein,Urine 1+ (Negative); RBC,Urine 4 /hpf (0-5); Squamous Epithelial Cell,Urine 1 /hpf (0-4); WBC,Urine 1 /hpf (0-5)
[2022-08-08] MEDS ORDERED: LACTULOSE 20 GM/30 ML CUP PO ONE (11:33)
[2022-08-08 12:10] VITALS: BP 136/78; PULSE 77
== END 2022-08-08 12:11 | disposition home or self-care (01) ==
LOC: EC 08:07
DX: R10.13 Epigastric pain (principal); R10.30 Lower abdominal pain, unspecified; E11.40 Type 2 diabetes mellitus with diabetic neuropathy, unspecified; I11.0 Hypertensive heart disease with heart failure; I50.9 Heart failure, unspecified; I25.10 Atherosclerotic heart disease of native coronary artery without angina pectoris; F41.9 Anxiety disorder, unspecified; E07.9 Disorder of thyroid, unspecified; I25.2 Old myocardial infarction; K21.9 Gastro-esophageal reflux disease without esophagitis; E78.5 Hyperlipidemia, unspecified; Z79.4 Long term (current) use of insulin; Z79.890 Hormone replacement therapy; Z79.899 Other long term (current) drug therapy; Z95.5 Presence of coronary angioplasty implant and graft; Z88.0 Allergy status to penicillin
CPT/HCPCS: 36415; 80053; 82150; 83690; 85025; 85610; 85730; 81001; 74177; 99284; 96374; 96361 ×3; 96372; J0500; Q9967

== ENCOUNTER 2022-08-27 10:08 | Emergency (ER) | payer MEDICARE, OTHER ==
[2022-08-27] MEDS ORDERED: SODIUM CHLORIDE 0.9% 500 ML 500 ML IV ONE (10:37)
[2022-08-27 11:11] LABS: Basophils % (A) 0 %; Eosinophils % (A) 0 %; HCT 35.6 % (34.0-46.0); HGB 11.8 gm/dL (11.4-16.0); Lymphocytes # (A) 1.4 k/uL (1.0-4.8); Lymphocytes % (A) 30 %; MCH 28.7 pg (25.0-35.0); MCHC 33.1 g/dL (31.0-37.0); MCV 86.6 fL (80.0-100.0); Mean Platelet Volume 9.1; Monocytes # (A) 0.4 k/uL (0-1.0); Monocytes % (A) 9 %; Neutrophils # (A) 2.7 k/uL (1.3-7.7); Neutrophils % (A) 57 %; Platelet Count 158 k/uL (150-450); RDW 14.1 % (11.5-15.5); WBC 4.8 k/uL (3.8-10.6)
[2022-08-27 11:34] LABS: ALT 17 U/L (4-34); AST 20 U/L (14-36); African American GFR (CKD) >90 (>60 ml/min/1.73 sqM); Albumin 3.3 g/dL (3.5-5.0); Alkaline Phosphatase 97 U/L (38-126); Anion Gap 6 mmol/L; Blood Urea Nitrogen 14 mg/dL (7-17); Calcium 8.5 mg/dL (8.4-10.2); Carbon Dioxide 26 mmol/L (22-30); Chloride 108 mmol/L (98-107); Glucose 198 mg/dL (74-99); Magnesium 1.3 mg/dL (1.6-2.3); Non-African American GFR(CKD) >90 (>60 ml/min/1.73 sqM); Potassium 3.7 mmol/L (3.5-5.1); Sodium 140 mmol/L (137-145); Total Bilirubin 0.5 mg/dL (0.2-1.3)
[2022-08-27] MEDS ORDERED: MAGNESIUM OXIDE 400 MG TAB PO STA (12:04)
--- NOTE | 2022-08-27 12:29 | ED ---
Weakness HPI - General Chief complaint: Weakness Stated complaint: weakness Time Seen by Provider: 08/27/22 10:21 Source: patient, family, EMS, RN notes reviewed Mode of arrival: ambulatory Limitations: altered mental status, physical limitation - History of Present Illness Initial comments: This a 71-year-old female presents emergency from via EMS for evaluation of weakness. Patient called EMS secondary to being actually weak this morning. Patient does have some underlying weakness, issues secondary to prior CVA,. noted that the blood sugar was around 300 EMS arrived blood sugars around 200. She has no focal complaints. She does use a walker to ambulate but has been more difficult. states it is very difficult for her to com plete her daily activities and she does need quite a bit of assistance with her daily activities and walking. Patient denies any headache, denies chest pain shortness breath abdominal pain. Patient has mild right-sided weakness from prior CVA. Patient stating that she does not want to be here. - Related Data Home Medications Medication Instructions Recorded Confirmed Colchicine [Colcrys] 0.6 mg PO DAILY PRN 08/11/17 05/14/21 Nitroglycerin Sl Tabs [Nitrostat] 0.4 mg SL Q5M PRN 08/11/17 05/14/21 DULoxetine HCL [Cymbalta] 60 mg PO BID 12/27/19 05/14/21 Desloratadine [Clarinex] 5 mg PO DAILY PRN 12/27/19 05/14/21 Ezetimibe [Zetia] 10 mg PO HS 12/27/19 05/14/21 Insulin Lispro [humaLOG Kwikpen] See Protocol SQ AC-TID 12/27/19 05/14/21 Insulin Detemir [Levemir Flextouch 35 units SQ HS 07/29/20 05/14/21 Pen] Levothyroxine Sodium [Levoxyl] 125 mcg PO DAILY 07/29/20 05/14/21 lisinopriL [Prinivil] 10 mg PO DAILY 01/17/21 05/14/21 Furosemide [Lasix] 20 mg PO DAILY PRN 05/14/21 05/14/21 Gabapentin 300 mg PO BID 05/14/21 05/14/21 Lidocaine 5% Oint [Xylocaine 5% 1 applic TOPICAL DAILY PRN 05/14/21 05/14/21 Oint] Metoprolol Tartrate [Lopressor] 25 mg PO BID 05/14/21 05/14/21 Pramipexole [Mirapex] 0.25 mg PO DAILY 05/14/21 05/14/21 hydrOXYzine HCL 10 mg PO DAILY PRN 05/14/21 05/14/21 oxyBUTYnin chloride [Ditropan] 5 mg PO BID 05/14/21 05/14/21 rOPINIRole HCL [Requip] 4 mg PO TID 05/14/21 05/14/21 Previous Rx's Medication Instructions Recorded Nitrofurantoin Monohyd/M-Cryst 100 mg PO Q12HR #14 cap 08/27/22 [Macrobid] Allergies Allergy/AdvReac Type Severity Reaction Status Date / Time Penicillins Allergy Rash/Hives Verified 08/08/22 08:09 Review of Systems ROS Statement: Those systems with pertinent positive or pertinent negative responses have been documented in the HPI. ROS Other: All systems not noted in ROS Statement are negative. Past Medical History Past Medical History: Coronary Artery Disease (CAD), Chest Pain / Angina, Heart Failure, Diabetes Mellitus, Eye Disorder, GERD/Reflux, Hyperlipidemia, Hypertension, Myocardial Infarction ([place]), Osteoarthritis (OA), Sleep Apnea/CPAP/BIPAP, Thyroid Disorder Additional Past Medical History / Comment(s): hx hypotension/cardiogenic shock, dizziness, junctional rhythm. Normal pressure hydrocephalus, neuropathy bilateral feet/toes, chronic back pain, RLS, embedded kidney stones, bilateral macular degeneration, IBS, narcolepsy, gout, SEE DR MORALES'S HISTORY AND PHYSICAL FOR CARDIAC HISTORY. PACEMAKER SITE INFECTED Last Myocardial Infarction Date:: 12/27/19 History of Any Multi-Drug Resistant Organisms: None Reported Past Surgical History: Back Surgery, EPS, Heart Catheterization With Stent, Joint Replacement, Orthopedic Surgery, Pacemaker, Tubal Ligation Additional Past Surgical History / Comment(s): 4 cardiac stents, low back surgery, brain shunt, colonoscopy, TOTAL LEFT KNEE. pacemaker removed 07/30/20 due to infection, Pacemaker placed in August 2020, Past Anesthesia/Blood Transfusion Reactions: Motion Sickness, Postoperative Nausea & Vomiting (PONV) Date of Last Stent Placement:: 12/27/19 Type of Cardiac Device: Permanent Pacemaker Device Placement Date:: MAR 2020 Past Psychological History: Anxiety Smoking Status: Never smoker Past Alcohol Use History: Occasional Past Drug Use History: None Reported - Past Family History Father History Unknown: Yes Family Medical History: Congestive Heart Failure (CHF), Hypertension Mother History Unknown: Yes Family Medical History: Congestive Heart Failure (CHF), Hypertension Brother(s) Family Medical History: Cancer, Myocardial Infarction ([place]) Additional Family Medical History / Comment(s): One brother had an [place]. Another brother had prostate cancer. General Exam Limitations: altered mental status, physical limitation General appearance: alert, in no apparent distress Head exam: Present: atraumatic, normocephalic, normal inspection Eye exam: Present: normal appearance, PERRL, EOMI. Absent: scleral icterus, conjunctival injection, periorbital swelling ENT exam: Present: normal exam, normal oropharynx, mucous membranes moist Neck exam: Present: normal inspection, full ROM. Absent: tenderness, meningismus, lymphadenopathy Respiratory exam: Present: normal lung sounds bilaterally. Absent: respiratory distress, wheezes, rales, rhonchi, stridor Cardiovascular Exam: Present: regular rate, normal rhythm, normal heart sounds. Absent: systolic murmur, diastolic murmur, rubs, gallop, clicks GI/Abdominal exam: Present: soft, normal bowel sounds. Absent: distended, tenderness, guarding, rebound, rigid Extremities exam: Present: normal inspection, full ROM, normal capillary refill. Absent: tenderness, pedal edema, joint swelling, calf tenderness Neurological exam: Present: alert, CN II-XII intact. Absent: oriented X3 Skin exam: Present: warm, dry, intact, normal color. Absent: rash Course Vital Signs 08/27/22 10:14 Temperature 98.1 F Pulse Rate 87 Respiratory 18 Rate Blood Pressure 174/89 O2 Sat by Pulse 97 Oximetry EKG Findings - EKG Comments: EKG Findings:: EKG performed at 10:12 atrial paced rate of 73 MN 182 QRS 101 QT/QTC 402/428 - EKG Results: EKG: interpreted by JORDY Medical Decision Making - Medical Decision Making Was pt. sent in by a medical professional or institution (, PA, OVERSEAMER, urgent care, hospital, or alf...) When possible be specific @ -No Did you speak to anyone other than the patient for history (EMS, parent, family, police, friend...)? What history was obtained from this source @ -EMS and in room providing prehospital care treatment and vitals along with blood glucose Did you review nursing and triage notes (agree or disagree)? Why? @ -I reviewed and agree with nursing and triage notes Were old charts reviewed (outside hosp., previous admission, EMS record, old EKG, old radiological studies, urgent care reports/EKG's, alf records)? Report findings @ -Prior laboratory studies reviewed Differential Diagnosis (chest pain, altered mental status, abdominal pain women, abdominal pain men, vaginal bleeding, weakness, fever, dyspnea, syncope, headache, dizziness, GI bleed, back pain, seizure, CVA, palpatations, mental health, musculoskeletal)? @ -nDifferential Weakness: Hypoglycemia, shock, sepsis, hyponatremia, anemia, infection, [place], ETOH, adverse medicine reaction, overdose, stroke, this is not meant to be an all-inclusive list.able EKG interpreted by me (3pts min.). @ -As above X-rays interpreted by me (1pt min.). @ -None done CT interpreted by me (1pt min.). @ -None done U/S interpreted by me (1pt. min.). @ -None done What testing was considered but not performed or refused? (CT, X-rays, U/S, labs)? Why? @ -None What meds were considered but not given or refused? Why? @ -None Did you discuss the management of the patient with other professionals (professionals i.e. , PA, OVERSEAMER, lab, RT, psych nurse, social media content specialist, farm management supervisor, teacher, chief media officer, porter sample case)? Give summary @ -Discuss case with case management who evaluated the patient and discussed about setting up home health care secondary to difficulty with daily activities, difficulty ambulating Was smoking cessation discussed for >3mins.? @ -No Was critical care preformed (if so, how long)? @ -No Were there social determinants of health that impacted care today? How? (Homelessness, low income, unemployed, alcoholism, drug addiction, transportation, low edu. Level, literacy, decrease access to med. care, snf, rehab)? @ -No Was there de-escalation of care discussed even if they declined (Discuss DNR or withdrawal of care, Hospice)? DNR status @ -No What co-morbidities impacted this encounter? (DM, HTN, Smoking, COPD, CAD, Cancer, CVA, ARF, Chemo, Hep., AIDS, mental health diagnosis, sleep apnea, morbid obesity)? @ -Diabetes, CVA Was patient admitted / discharged? Hospital course, mention meds given and route, prescriptions, significant lab abnormalities, going to OR and other pertinent info. @ -Discharge patient is positive for UTI patient was given Rocephin. Patient updated and results along with in room who agreed patient can go home they felt that she is able to manage at home and return for any worsening changes symptoms. Undiagnosed new problem with uncertain prognosis? @ -No Drug Therapy requiring intensive monitoring for toxicity (Heparin, Nitro, Insulin, Cardizem)? @ -No Were any procedures done? @ -No Diagnosis/symptom? @ -UTI, weakness Acute, or Chronic, or Acute on Chronic? @ -Acute Uncomplicated (without systemic symptoms) or Complicated (systemic symptoms)? @ -Uncomplicated Side effects of treatment? @ -No Exacerbation, Progression, or Severe Exacerbation? @ -No Poses a threat to life or bodily function? How? (Chest pain, [place], [place], pneumonia, PE, COPD, DKA, ARF, appy, cholecystitis, CVA, Diverticulitis, Homicidal, Suicidal, threat to staff... and all critical care pts) @ -No - Lab Data Result diagrams: 08/27/22 10:30 08/27/22 10:30 Lab Results 08/27/22 08/27/22 08/27/22 Range/Units 10:30 10:30 11:52 WBC 4.8 (3.8-10.6) k/uL RBC 4.10 (3.80-5.40) m/uL Hgb 11.8 (11.4-16.0) gm/dL Hct 35.6 (34.0-46.0) % MCV 86.6 (80.0-100.0) fL MCH 28.7 (25.0-35.0) pg MCHC 33.1 (31.0-37.0) g/dL RDW 14.1 (11.5-15.5) % Plt Count 158 (150-450) k/uL MPV 9.1 Neutrophils % 57 % Lymphocytes % 30 % Monocytes % 9 % Eosinophils % 0 % Basophils % 0 % Neutrophils # 2.7 (1.3-7.7) k/uL Lymphocytes # 1.4 (1.0-4.8) k/uL Monocytes # 0.4 (0-1.0) k/uL Eosinophils # 0.0 (0-0.7) k/uL Basophils # 0.0 (0-0.2) k/uL Sodium 140 (137-145) mmol/L Potassium 3.7 (3.5-5.1) mmol/L Chloride 108 H (98-107) mmol/L Carbon Dioxide 26 (22-30) mmol/L Anion Gap 6 mmol/L BUN 14 (7-17) mg/dL Creatinine 0.54 (0.52-1.04) mg/dL Est GFR (CKD-EPI)AfAm >90 (>60 ml/min/1.73 sqM) Est GFR (CKD-EPI)NonAf >90 (>60 ml/min/1.73 sqM) Glucose 198 H (74-99) mg/dL Calcium 8.5 (8.4-10.2) mg/dL Magnesium 1.3 L (1.6-2.3) mg/dL Total Bilirubin 0.5 (0.2-1.3) mg/dL AST 20 (14-36) U/L ALT 17 (4-34) U/L Alkaline Phosphatase 97 (38-126) U/L Total Protein 6.0 L (6.3-8.2) g/dL Albumin 3.3 L (3.5-5.0) g/dL Urine Color Yellow Urine Appearance Cloudy H (Clear) Urine pH 5.5 (5.0-8.0) Ur Specific [place] 1.018 (1.001-1.035) Urine Protein 1+ H (Negative) Urine Glucose (UA) 3+ H (Negative) Urine Ketones Negative (Negative) Urine Blood Small H (Negative) Urine Nitrite Negative (Negative) Urine Bilirubin Negative (Negative) Urine Urobilinogen 2.0 (<2.0) mg/dL Ur Leukocyte Esterase Large H (Negative) Urine RBC 7 H (0-5) /hpf Urine WBC 59 H (0-5) /hpf Ur Squamous Epith Cells 2 (0-4) /hpf Amorphous Sediment Rare H (None) /hpf Urine Bacteria Many H (None) /hpf Urine Mucus Rare H (None) /hpf Disposition Clinical Impression: Weakness, UTI (urinary tract infection) Disposition: HOME SELF-CARE Condition: Stable Instructions (If sedation given, give patient instructions): Urinary Tract Infection in Women (ED) Additional Instructions: Please return to the Emergency Department if symptoms worsen or any other concerns. Prescriptions: Nitrofurantoin Monohyd/M-Cryst [Macrobid] 100 mg PO Q12HR #14 cap Is patient prescribed a controlled substance at d/c from ED?: No Referrals: [facility], [NON-STAFF] - 1-2 days Medhat Asif DO [Primary Care Provider] - 1-2 days (NURIA Caban is usually seen.) Forms: Community Resources, Help In The Home Time of Disposition: 12:56
[2022-08-27 12:42] LABS: Amorphous Sediment,Urine Rare /hpf; Appearance,Urine Cloudy (Clear); Bacteria,Urine Many /hpf; Bilirubin,Urine Negative (Negative); Blood,Urine Small (Negative); Color,Urine Yellow; Glucose,Urine (UA) 3+ (Negative); Ketones,Urine Negative (Negative); Leukocyte Esterase,Urine Large (Negative); Mucus,Urine Rare /hpf; Nitrite,Urine Negative (Negative); PH, Urine 5.5 (5.0-8.0); Protein,Urine 1+ (Negative); RBC,Urine 7 /hpf (0-5); Specific Gravity,Urine 1.018 (1.001-1.035); Squamous Epithelial Cell,Urine 2 /hpf (0-4); WBC,Urine 59 /hpf (0-5)
[2022-08-27] MEDS ORDERED: cefTRIAXone IN SWFI 1,000 MG/10 ML SYRINGE IVP STA (12:51)
[2022-08-27 13:52] VITALS: BP 196/95; PULSE 65; RESP 16; TEMP 98.3
== END 2022-08-27 14:05 | disposition home or self-care (01) ==
LOC: EC 10:08
DX: R53.1 Weakness (principal); N39.0 Urinary tract infection, site not specified; I25.10 Atherosclerotic heart disease of native coronary artery without angina pectoris; I11.0 Hypertensive heart disease with heart failure; I50.9 Heart failure, unspecified; E11.9 Type 2 diabetes mellitus without complications; E78.5 Hyperlipidemia, unspecified; I10 Essential (primary) hypertension; I21.9 Acute myocardial infarction, unspecified; M19.90 Unspecified osteoarthritis, unspecified site; E07.9 Disorder of thyroid, unspecified; F41.9 Anxiety disorder, unspecified; Z88.0 Allergy status to penicillin; Z79.4 Long term (current) use of insulin; Z79.890 Hormone replacement therapy; Z79.899 Other long term (current) drug therapy
CPT/HCPCS: 36415; 93005; 80053; 83735; 85025; 81001; 99285; 96374; 96361; J0696

== ENCOUNTER 2022-09-18 20:58 | Emergency (ER) | payer MEDICARE, OTHER ==
[2022-09-18 21:09] VITALS: TEMP 98.1
--- NOTE | 2022-09-18 22:05 | XR ---
EXAMINATION: XR chest 2V: 09/18/2022 9:49 PM CLINICAL INDICATION: Chest Pain TECHNIQUE: Departmental protocol COMPARISON: 05/02/2022 FINDINGS: There is a subtle fine reticular pattern of increased density throughout the lung bases which can cor relate with a clinical diagnosis of minimal interstitial phase pulmonary edema. Otherwise, the lungs are well-expanded and clear. The pleural spaces are negative. EKG leads. Cardiac pacemaker. The cardiac silhouette is not enlarged. The remainder of the mediastina l silhouette is unremarkable. The skeletal structures and soft tissues are negative for acute findings. IMPRESSION: Subtle pulmonary finding.
[2022-09-18 22:16] LABS: ALT 22 U/L (4-34); AST 24 U/L (14-36); African American GFR (CKD) >90 (>60 ml/min/1.73 sqM); Albumin 3.9 g/dL (3.5-5.0); Alkaline Phosphatase 92 U/L (38-126); Anion Gap 7 mmol/L; Blood Urea Nitrogen 16 mg/dL (7-17); Calcium 9.4 mg/dL (8.4-10.2); Carbon Dioxide 27 mmol/L (22-30); Chloride 105 mmol/L (98-107); Glucose 214 mg/dL (74-99); Lipase 177 U/L (23-300); Magnesium 1.3 mg/dL (1.6-2.3); Non-African American GFR(CKD) >90 (>60 ml/min/1.73 sqM); Sodium 139 mmol/L (137-145); Total Bilirubin 0.5 mg/dL (0.2-1.3); Total Protein 6.7 g/dL (6.3-8.2)
[2022-09-18 22:46] LABS: Basophils % (A) 0 %; Eosinophils % (A) 0 %; HCT 38.7 % (34.0-46.0); HGB 12.9 gm/dL (11.4-16.0); Lymphocytes # (A) 2.2 k/uL (1.0-4.8); Lymphocytes % (A) 35 %; MCH 29.4 pg (25.0-35.0); MCHC 33.2 g/dL (31.0-37.0); MCV 88.5 fL (80.0-100.0); Mean Platelet Volume 9.3; Monocytes # (A) 0.5 k/uL (0-1.0); Monocytes % (A) 8 %; Neutrophils # (A) 3.5 k/uL (1.3-7.7); Neutrophils % (A) 55 %; Platelet Count 160 k/uL (150-450); RBC 4.37 m/uL (3.80-5.40); RDW 14.1 % (11.5-15.5); WBC 6.3 k/uL (3.8-10.6)
[2022-09-18 22:51] LABS: Partial Thromboplastin Time 23.5 sec (22.0-30.0); Prothrombin Time 10.4 sec (9.0-12.0)
--- NOTE | 2022-09-18 23:34 | ED ---
Chest Pain HPI - General Chief Complaint: Chest Pain Stated Complaint: Chest Pain Time Seen by Provider: 09/18/22 21:15 Source: EMS Mode of arrival: EMS Limitations: no limitations - History of Present Illness Initial Comments: 71-year-old female past history of coronary artery disease, diabetes, hypertension, hyperlipidemia presents the emergency department reporting chest pain and high blood pressure. States that she was at home today when she had some chest pressure which started on the right side of her chest. She checked her blood pressure and it was significantly high. She called EMS. States that she did take all of her medications. They did provide her with 324 mg aspirin. Patient arrives and is pain-free. Follows with Dr. Ruiz. Denies any recent stress testing. No fevers, chills or cough. No calf pain or swelling. No other alleviating, precipitating or modifying factors - Related Data Home Medications Medication Instructions Recorded Confirmed Colchicine [Colcrys] 0.6 - 1.2 mg PO DIRECTED PRN 08/11/17 09/24/22 Nitroglycerin Sl Tabs [Nitrostat] 0.4 mg SL Q5M PRN 08/11/17 09/24/22 DULoxetine HCL [Cymbalta] 60 mg PO BID 12/27/19 09/24/22 Ezetimibe [Zetia] 10 mg PO HS 12/27/19 09/24/22 Insulin Lispro [humaLOG Kwikpen] See Protocol SQ AC-TID 12/27/19 09/24/22 Insulin Detemir [Levemir Flextouch 22 units SQ HS 07/29/20 09/24/22 Pen] Levothyroxine Sodium [Levoxyl] 125 mcg PO DAILY 07/29/20 09/24/22 Gabapentin 300 mg PO BID 05/14/21 09/24/22 Lidocaine 5% Oint [Xylocaine 5% 1 applic TOPICAL DAILY PRN 05/14/21 09/24/22 Oint] Metoprolol Tartrate [Lopressor] 25 mg PO BID 05/14/21 09/24/22 Atorvastatin Calcium [Lipitor] 40 mg PO DAILY 09/24/22 09/24/22 Donepezil [Aricept] 5 mg PO HS 09/24/22 09/24/22 Insulin Detemir [Levemir Flexpen] 30 units SQ DAILY 09/24/22 09/24/22 Meclizine [Antivert] 12.5 - 25 mg PO BID PRN 09/24/22 09/24/22 Omeprazole [PriLOSEC] 20 mg PO DAILY 09/24/22 09/24/22 Oxybutynin Chloride [Ditropan XL] 5 mg PO BID 09/24/22 09/24/22 lisinopriL [Zestril] 5 mg PO DAILY 09/24/22 09/24/22 Allergies Allergy/AdvReac Type Severity Reaction Status Date / Time Penicillins Allergy Rash/Hives Verified 09/24/22 15:29 Review of Systems ROS Statement: Those systems with pertinent positive or pertinent negative responses have been documented in the HPI. ROS Other: All systems not noted in ROS Statement are negative. Past Medical History Past Medical History: Coronary Artery Disease (CAD), Chest Pain / Angina, Heart Failure, Diabetes Mellitus, Eye Disorder, GERD/Reflux, Hyperlipidemia, Hypertension, Myocardial Infarction ([place]), Osteoarthritis ([place]), Sleep Apnea/CPAP/BIPAP, Thyroid Disorder Additional Past Medical History / Comment(s): hx hypotension/cardiogenic shock, dizziness, junctional rhythm. Normal pressure hydrocephalus, neuropathy bilateral feet/toes, chronic back pain, RLS, embedded kidney stones, bilateral macular degeneration, IBS, narcolepsy, gout, SEE DR MORALES'S HISTORY AND PHYSICAL FOR CARDIAC HISTORY. PACEMAKER SITE INFECTED Last Myocardial Infarction Date:: 12/27/19 History of Any Multi-Drug Resistant Organisms: None Reported Past Surgical History: Back Surgery, EPS, Heart Catheterization With Stent, Joint Replacement, Orthopedic Surgery, Pacemaker, Tubal Ligation Additional Past Surgical History / Comment(s): 4 cardiac stents, low back surgery, brain shunt, colonoscopy, TOTAL LEFT KNEE. pacemaker removed 07/30/20 due to infection, Pacemaker placed in August 2020, Past Anesthesia/Blood Transfusion Reactions: Motion Sickness, Postoperative Nausea & Vomiting (PONV) Date of Last Stent Placement:: 12/27/19 Type of Cardiac Device: Permanent Pacemaker Device Placement Date:: MAR 2020 Past Psychological History: Anxiety Smoking Status: Never smoker Past Alcohol Use History: Occasional Past Drug Use History: None Reported - Past Family History Father History Unknown: Yes Family Medical History: Congestive Heart Failure (CHF), Hypertension Mother History Unknown: Yes Family Medical History: Congestive Heart Failure (CHF), Hypertension Brother(s) Family Medical History: Cancer, Myocardial Infarction ([place]) Additional Family Medical History / Comment(s): One brother had an [place]. Another brother had prostate cancer. General Exam Limitations: no limitations General appearance: alert, in no apparent distress Head exam: Present: atraumatic, normocephalic, normal inspection Eye exam: Present: normal appearance, PERRL, EOMI. Absent: scleral icterus, conjunctival injection, periorbital swelling ENT exam: Present: normal exam, mucous membranes moist Neck exam: Present: normal inspection. Absent: tenderness, meningismus, lymphadenopathy Respiratory exam: Present: normal lung sounds bilaterally. Absent: respiratory distress, wheezes, rales, rhonchi, stridor Cardiovascular Exam: Present: regular rate, normal rhythm, normal heart sounds. Absent: systolic murmur, diastolic murmur, rubs, gallop, clicks GI/Abdominal exam: Present: soft, normal bowel sounds. Absent: distended, tenderness, guarding, rebound, rigid Extremities exam: Present: normal inspection, full ROM, normal capillary refill. Absent: tenderness, pedal edema, joint swelling, calf tenderness Back exam: Present: normal inspection Neurological exam: Present: alert, oriented X3, CN II-XII intact Psychiatric exam: Present: normal affect, normal mood Skin exam: Present: warm, dry, intact, normal color. Absent: rash Course Vital Signs 09/18/22 09/18/22 09/18/22 21:05 21:34 23:56 Temperature 98.1 F 98.1 F Pulse Rate 71 69 Respiratory 18 16 Rate Blood Pressure 172/105 162/94 174/99 O2 Sat by Pulse 97 97 Oximetry Chest Pain MDM - MDM Was pt. sent in by a medical professional or institution (, PA, LAUNDRY PRICING CLERK, urgent care, hospital, or senior care...) When possible be specific @ -No Did you speak to anyone other than the patient for history (EMS, parent, family, police, friend...)? What history was obtained from this source @ -No Did you review nursing and triage notes (agree or disagree)? Why? @ -I reviewed and agree with nursing and triage notes Were old charts reviewed (outside hosp., previous admission, EMS record, old EKG, old radiological studies, urgent care reports/EKG's, senior care records)? Report findings @ -No old charts were reviewed Differential Diagnosis (chest pain, altered mental status, abdominal pain women, abdominal pain men, vaginal bleeding, weakness, fever, dyspnea, syncope, headache, dizziness, GI bleed, back pain, seizure, CVA, palpatations, mental health, musculoskeletal)? @ -acs, stemi, nstemi, valvular disease, pe EKG interpreted by me (3pts min.). @ -Yes and demonstrates atrial pacemaker with a rate of 66. OK interval 190. QRS 97. QTC 418. Pacemaker captures appropriate. No acute ST segment elevation or depression X-rays interpreted by me (1pt min.). @ -yes - no acute process CT interpreted by me (1pt min.). @ -none done U/S interpreted by me (1pt. min.). @ -None done What testing was considered but not performed or refused? (CT, X-rays, U/S, labs)? Why? @ -echo - patient did not want to be admitted What meds were considered but not given or refused? Why? @ -None Did you discuss the management of the patient with other professionals (professionals i.e. , PA, LAUNDRY PRICING CLERK, lab, RT, psych nurse, social insurance analyst, real estate paralegal, teacher, weapons officer naval activity, shoe caser)? Give summary @ -no Was smoking cessation discussed for >3mins.? @ -no Was critical care preformed (if so, how long)? @ -No Were there social determinants of health that impacted care today? How? (Homelessness, low income, unemployed, alcoholism, drug addiction, transportation, low edu. Level, literacy, decrease access to med. care, correction, rehab)? @ -No Was there de-escalation of care discussed even if they declined (Discuss DNR or withdrawal of care, Hospice)? DNR status @ -No What co-morbidities impacted this encounter? (DM, HTN, Smoking, COPD, CAD, Cancer, CVA, ARF, Chemo, Hep., AIDS, mental health diagnosis, sleep apnea, morbid obesity)? @ -htn Was patient admitted / discharged? Hospital course, mention meds given and route, prescriptions, significant lab abnormalities, going to OR and other pertinent info. @ -Upon arrival patient is placed in room 2. History and physical exam is performed. Laboratory studies were conducted. Chest x-rays performed. Results are discussed with the patient. Did recommend admission for observation. Patient wants to go home. Instructed her of the risks of leaving without further evaluation for which she is agreeable. Patient will be discharged and is asked to follow up with her primary care doctor. Requested that she see her nurse advocate. Return for any new or worsening symptoms. Patient agreeable to plan she is discharged home in stable condition Undiagnosed new problem with uncertain prognosis? @ -yes Drug Therapy requiring intensive monitoring for toxicity (Heparin, Nitro, Insulin, Cardizem)? @ -No Were any procedures done? @ -No Diagnosis/symptom? @ -acute chest pain, accelerated htn Acute, or Chronic, or Acute on Chronic? @ -acute Uncomplicated (without systemic symptoms) or Complicated (systemic symptoms)? @ -complicated Side effects of treatment? @ -none Exacerbation, Progression, or Severe Exacerbation? @ -no Poses a threat to life or bodily function? How? (Chest pain, [place], [place], pneumonia, PE, COPD, DKA, ARF, appy, cholecystitis, CVA, Diverticulitis, Homicidal, Suicidal, threat to staff... and all critical care pts) @ -No Disposition Clinical Impression: Chest pain, Accelerated hypertension Disposition: HOME SELF-CARE Condition: Stable Instructions (If sedation given, give patient instructions): Chest Pain (ED) Additional Instructions: I recommended hospital admission. If your pain returns, please return to the hospital. See your nurse advocate next week. Keep a blood pressure log Is patient prescribed a controlled substance at d/c from ED?: No Referrals: Medhat Asif DO [Primary Care Provider] - 1-2 days Time of Disposition: 23:34
[2022-09-18 23:57] VITALS: BP 174/99; PULSE 69; RESP 16
== END 2022-09-18 23:56 | disposition home or self-care (01) ==
LOC: EC 20:58
DX: I11.0 Hypertensive heart disease with heart failure (principal); I50.9 Heart failure, unspecified; E11.40 Type 2 diabetes mellitus with diabetic neuropathy, unspecified; I25.10 Atherosclerotic heart disease of native coronary artery without angina pectoris; I25.2 Old myocardial infarction; E78.5 Hyperlipidemia, unspecified; K21.9 Gastro-esophageal reflux disease without esophagitis; E07.9 Disorder of thyroid, unspecified; F41.9 Anxiety disorder, unspecified; Z79.4 Long term (current) use of insulin; Z79.890 Hormone replacement therapy; Z79.899 Other long term (current) drug therapy; Z95.5 Presence of coronary angioplasty implant and graft; Z88.0 Allergy status to penicillin
CPT/HCPCS: 36415; 71046; 80053; 83690; 83735; 83880; 84484; 85025; 85610; 85730; 93005; 99285

== ENCOUNTER 2022-09-24 14:03 | Inpatient (IN) | payer MEDICARE, OTHER ==
[2022-09-24] MEDS ORDERED: SODIUM CHLORIDE 0.9% 1,000 ML IV ONE (14:05)
--- NOTE | 2022-09-24 14:17 | CT ---
EXAMINATION TYPE: CT brain wo con CT DLP: 1177.6 mGycm, Automated exposure control for dose reduction was used. DATE OF EXAM: 09/24/2022 2:12 PM COMPARISON: 05/02/2022. CLINICAL INDICATION:Female, 71 years old with history of Neuro deficit, acute, stroke suspected, Righ t side weakness TECHNIQUE: Brain: Axial CT images of the brain were obtained with coronal and sagittal reformats created and rev iewed. Contrast used: None. Oral contrast used: None. FINDINGS: Brain: Extra-axial spaces: No abnormal extra-axial fluid collections. Ventricular system: Right posterior approach ventriculostomy catheter tip near midline in the right l ateral ventricle. Cerebral parenchyma: Remote injuries to the right frontal lobe and left basal ganglia. No acute intra parenchymal hemorrhage or mass effect. The francisco-white junction is well differentiated. Scattered hyp oattenuating areas are seen within the white matter. Cerebellum: Unremarkable. Mass effect: No evidence of midline shift. Intracranial vasculature: Atherosclerotic calcifications of the intracranial vessels. Soft tissues: Normal. Calvarium/osseous structures: No depressed skull fracture. Paranasal sinuses and mastoid air cells: Mild scattered paranasal sinus disease. Visualized orbits: Bilateral aphakia IMPRESSION: 1. No acute intracranial process. 2. Remote injuries to the right frontal lobe and left basal ganglia.
[2022-09-24 14:23] LABS: Glucose,Whole Blood 174 mg/dL (70-110)
[2022-09-24 14:28] LABS: Basophils % (A) 0 %; Eosinophils % (A) 0 %; HCT 34.7 % (34.0-46.0); HGB 11.7 gm/dL (11.4-16.0); Lymphocytes # (A) 1.9 k/uL (1.0-4.8); Lymphocytes % (A) 32 %; MCH 29.6 pg (25.0-35.0); MCHC 33.7 g/dL (31.0-37.0); MCV 87.6 fL (80.0-100.0); Mean Platelet Volume 9.5; Monocytes # (A) 0.5 k/uL (0-1.0); Monocytes % (A) 8 %; Neutrophils # (A) 3.4 k/uL (1.3-7.7); Neutrophils % (A) 57 %; Platelet Count 126 k/uL (150-450); RBC 3.96 m/uL (3.80-5.40); RDW 13.8 % (11.5-15.5); WBC 5.9 k/uL (3.8-10.6)
--- NOTE | 2022-09-24 14:28 | ED ---
General Adult HPI - General Chief complaint: Neuro Symptoms/Deficit Stated complaint: poss stroke Time Seen by Provider: 09/24/22 14:04 Source: patient, EMS, RN notes reviewed, old records reviewed Mode of arrival: EMS - History of Present Illness Initial comments: 71-year-old female presenting with right-sided weakness and slurred speech. History is initially obtained from the paramedics. They state that at approximately 12:30 the patient developed right-sided paralysis, right-sided facial droop and dysarthria. During transport to the hospital patient symptoms rapidly improved. Patient apparently does have previous CVA history and has had generalized weakness according to paramedics and family did have concern for urinary tract infection. Code stroke was activated upon arrival. - Related Data Home Medications Medication Instructions Recorded Confirmed Colchicine [Colcrys] 0.6 - 1.2 mg PO DIRECTED PRN 08/11/17 09/24/22 Nitroglycerin Sl Tabs [Nitrostat] 0.4 mg SL Q5M PRN 08/11/17 09/24/22 DULoxetine HCL [Cymbalta] 60 mg PO BID 12/27/19 09/24/22 Ezetimibe [Zetia] 10 mg PO HS 12/27/19 09/24/22 Insulin Lispro [humaLOG Kwikpen] See Protocol SQ AC-TID 12/27/19 09/24/22 Insulin Detemir [Levemir Flextouch 22 units SQ HS 07/29/20 09/24/22 Pen] Levothyroxine Sodium [Levoxyl] 125 mcg PO DAILY 07/29/20 09/24/22 Gabapentin 300 mg PO BID 05/14/21 09/24/22 Lidocaine 5% Oint [Xylocaine 5% 1 applic TOPICAL DAILY PRN 05/14/21 09/24/22 Oint] Metoprolol Tartrate [Lopressor] 25 mg PO BID 05/14/21 09/24/22 Atorvastatin Calcium [Lipitor] 40 mg PO DAILY 09/24/22 09/24/22 Donepezil [Aricept] 5 mg PO HS 09/24/22 09/24/22 Insulin Detemir [Levemir Flexpen] 30 units SQ DAILY 09/24/22 09/24/22 Meclizine [Antivert] 12.5 - 25 mg PO BID PRN 09/24/22 09/24/22 Omeprazole [PriLOSEC] 20 mg PO DAILY 09/24/22 09/24/22 Oxybutynin Chloride [Ditropan XL] 5 mg PO BID 09/24/22 09/24/22 lisinopriL [Zestril] 5 mg PO DAILY 09/24/22 09/24/22 Allergies Allergy/AdvReac Type Severity Reaction Status Date / Time Penicillins Allergy Rash/Hives Verified 09/24/22 15:29 Review of Systems ROS Statement: Those systems with pertinent positive or pertinent negative responses have been documented in the HPI. ROS Other: All systems not noted in ROS Statement are negative. Past Medical History Past Medical History: Coronary Artery Disease (CAD), Chest Pain / Angina, Heart Failure, Diabetes Mellitus, Eye Disorder, GERD/Reflux, Hyperlipidemia, Hypertension, Myocardial Infarction (HI), Osteoarthritis (OA), Sleep Apnea/CPAP/BIPAP, Thyroid Disorder Additional Past Medical History / Comment(s): hx hypotension/cardiogenic shock, dizziness, junctional rhythm. Normal pressure hydrocephalus, neuropathy bilateral feet/toes, chronic back pain, RLS, embedded kidney stones, bilateral macular degeneration, IBS, narcolepsy, gout, SEE DR MORALES'S HISTORY AND PHYSICAL FOR CARDIAC HISTORY. PACEMAKER SITE INFECTED Last Myocardial Infarction Date:: 12/27/19 History of Any Multi-Drug Resistant Organisms: None Reported Past Surgical History: Back Surgery, EPS, Heart Catheterization With Stent, Joint Replacement, Orthopedic Surgery, Pacemaker, Tubal Ligation Additional Past Surgical History / Comment(s): 4 cardiac stents, low back surgery, brain shunt, colonoscopy, TOTAL LEFT KNEE. pacemaker removed 07/30/20 due to infection, Pacemaker placed in August 2020, Past Anesthesia/Blood Transfusion Reactions: Motion Sickness, Postoperative Nausea & Vomiting (PONV) Date of Last Stent Placement:: 12/27/19 Type of Cardiac Device: Permanent Pacemaker Device Placement Date:: MAR 2020 Past Psychological History: Anxiety Smoking Status: Never smoker Past Alcohol Use History: Occasional Past Drug Use History: None Reported - Past Family History Father History Unknown: Yes Family Medical History: Congestive Heart Failure (CHF), Hypertension Mother History Unknown: Yes Family Medical History: Congestive Heart Failure (CHF), Hypertension Brother(s) Family Medical History: Cancer, Myocardial Infarction (HI) Additional Family Medical History / Comment(s): One brother had an HI. Another brother had prostate cancer. General Exam General appearance: alert, in no apparent distress Head exam: Present: atraumatic, normocephalic Eye exam: Present: normal appearance, PERRL ENT exam: Present: normal exam Neck exam: Present: normal inspection. Absent: tenderness, meningismus Respiratory exam: Present: normal lung sounds bilaterally. Absent: respiratory distress, wheezes Cardiovascular Exam: Present: regular rate, normal rhythm GI/Abdominal exam: Present: soft. Absent: distended, tenderness, guarding Extremities exam: Present: normal inspection, normal capillary refill. Absent: pedal edema Neurological exam: Present: alert, motor sensory deficit (Right arm drift, slight dysarthria, NIH of 2) Psychiatric exam: Present: normal affect, normal mood Skin exam: Present: warm, dry, intact. Absent: cyanosis, diaphoretic Course Vital Signs 09/24/22 14:05 Temperature 97.9 F Pulse Rate 90 Respiratory 18 Rate Blood Pressure 129/84 O2 Sat by Pulse 96 Oximetry - Reevaluation(s) Reevaluation #1: 09/24/22 14:25 Slight right-sided arm drift, 5 out of 5 strength in the right extremity, mild dysarthria, NIH of 2 Reevaluation #2: 09/24/22 14:25 Case discussed with the stroke neurologist Dr. Vinson, given the rapidly improving symptoms and low NIH TPA is not indicated at this time, recommends medical management. Reevaluation #3: 09/24/22 16:26 Urinalysis is pending. Reevaluation #4: 09/24/22 16:26 Further history is obtained from the patient's who is at baseline and states that she had previous CVA with residual right-sided weakness although t his was more pronounced today than usual. He also states that she's had some generalized weakness and waxing and waning slurred speech over the past several weeks. Medical Decision Making - Medical Decision Making Was pt. sent in by a medical professional or institution (, PA, CAR DISTRIBUTOR, urgent care, hospital, or intermediate...) When possible be specific @ -No Did you speak to anyone other than the patient for history (EMS, parent, family, police, friend...)? What history was obtained from this source @ Paramedics and patient's Did you review nursing and triage notes (agree or disagree)? Why? @ -I reviewed and agree with nursing and triage notes Were old charts reviewed (outside hosp., previous admission, EMS record, old EKG, old radiological studies, urgent care reports/EKG's, intermediate records)? Report findings @ -No old charts were reviewed Differential Diagnosis (chest pain, altered mental status, abdominal pain women, abdominal pain men, vaginal bleeding, weakness, fever, dyspnea, syncope, headache, dizziness, GI bleed, back pain, seizure, CVA, palpatations, mental health, musculoskeletal)? @ Differential CVA Ischemic stroke, hemorrhagic stroke, brain tumor, atypical migraine, Wernicke's encephalopathy, seizure, multiple sclerosis, meningitis, encephalitis, hypoglycemia, Guillain-Mojica, electrolytes disturbance, myasthenia gravis.... This is not meant to be an all-inclusive list EKG interpreted by me (3pts min.). @EKG atrial paced rhythm rate of 64, NH interval 193, QRS duration 101, QTC [address] segment changes. X-rays interpreted by me (1pt min.). @ -Chest x-ray negative for acute cardiopulmonary findings. CT interpreted by me (1pt min.). @ -[CT showing remote ischemic injury, no intracranial hemorrhage or mass effect. U/S interpreted by me (1pt. min.). @ -None done What testing was considered but not performed or refused? (CT, X-rays, U/S, labs)? Why? @ -None What meds were considered but not given or refused? Why? @ -None Did you discuss the management of the patient with other professionals (professionals i.e. , PA, CAR DISTRIBUTOR, lab, RT, psych nurse, social problems specialist, extractor plant operator, teacher, aviation ordnance officer, pillowcase folder)? Give summary @ -[Case discussed with sound physician group. Was smoking cessation discussed for >3mins.? @ -No Was critical care preformed (if so, how long)? @ Yes, 35 minutes Were there social determinants of health that impacted care today? How? (Homelessness, low income, unemployed, alcoholism, drug addiction, transportatio n, low edu. Level, literacy, decrease access to med. care, retirement, rehab)? @ -No Was there de-escalation of care discussed even if they declined (Discuss DNR or withdrawal of care, Hospice)? DNR status @ -No What co-morbidities impacted this encounter? (DM, HTN, Smoking, COPD, CAD, Cancer, CVA, ARF, Chemo, Hep., AIDS, mental health diagnosis, sleep apnea, morbid obesity)? @ -[Hypertension, diabetes, previous CVA Was patient admitted / discharged? Hospital course, mention meds given and route, prescriptions, significant lab abnormalities, going to OR and other pertinent info. @ 71-year-old female presenting with right-sided weakness which was nearly completely resolved upon arrival. Initial NIH of 2. Given the rapidly resolving symptoms and unknown baseline. The patient was not a TPA candidate. The stroke neurologist recommended medical management. CT brain and CT angiography was performed as well as laboratory testing. The does report that there is been some increased generalized weakness and slurred speech for the past several weeks. Patient will be admitted for medical management, concern for worsening right-sided weakness and speech abnormalities. Undiagnosed new problem with uncertain prognosis? @ -No Drug Therapy requiring intensive monitoring for toxicity (Heparin, Nitro, Insulin, Cardizem)? @ -No Were any procedures done? @ -No Diagnosis/symptom? @ CVA, generalized weakness Acute, or Chronic, or Acute on Chronic? @ -Acute on chronic Uncomplicated (without systemic symptoms) or Complicated (systemic symptoms)? @ -default Side effects of treatment? @ -No Exacerbation, Progression, or Severe Exacerbation? @ -No Poses a threat to life or bodily function? How? (Chest pain, USA, HI, pneumonia, PE, COPD, DKA, ARF, appy, cholecystitis, CVA, Diverticulitis, Homicidal, Suicidal, threat to staff... and all critical care pts) @ -[Yes, CVA - Lab Data Result diagrams: 09/24/22 14:20 09/24/22 14:20 Lab Results 09/24/22 09/24/22 09/24/22 Range/Units 14:20 14:20 14:20 WBC 5.9 (3.8-10.6) k/uL RBC 3.96 (3.80-5.40) m/uL Hgb 11.7 (11.4-16.0) gm/dL Hct 34.7 (34.0-46.0) % MCV 87.6 (80.0-100.0) fL MCH 29.6 (25.0-35.0) pg MCHC 33.7 (31.0-37.0) g/dL RDW 13.8 (11.5-15.5) % Plt Count 126 L (150-450) k/uL MPV 9.5 Neutrophils % 57 % Lymphocytes % 32 % Monocytes % 8 % Eosinophils % 0 % Basophils % 0 % Neutrophils # 3.4 (1.3-7.7) k/uL Lymphocytes # 1.9 (1.0-4.8) k/uL Monocytes # 0.5 (0-1.0) k/uL Eosinophils # 0.0 (0-0.7) k/uL Basophils # 0.0 (0-0.2) k/uL PT 10.8 (9.0-12.0) sec INR 1.0 (<1.2) APTT 23.3 (22.0-30.0) sec Sodium 136 L (137-145) mmol/L Potassium 4.2 (3.5-5.1) mmol/L Chloride 106 (98-107) mmol/L Carbon Dioxide 25 (22-30) mmol/L Anion Gap 5 mmol/L BUN 20 H (7-17) mg/dL Creatinine 0.61 (0.52-1.04) mg/dL Est GFR (CKD-EPI)AfAm >90 (>60 ml/min/1.73 sqM) Est GFR (CKD-EPI)NonAf >90 (>60 ml/min/1.73 sqM) Glucose 166 H (74-99) mg/dL POC Glucose (mg/dL) (70-110) mg/dL POC Glu Mail Handler Equipment Operator ID Calcium 8.2 L (8.4-10.2) mg/dL Total Bilirubin 0.5 (0.2-1.3) mg/dL AST 29 (14-36) U/L ALT 25 (4-34) U/L Alkaline Phosphatase 82 (38-126) U/L Creatine Kinase 44 (30-135) U/L Troponin I (0.000-0.034) ng/mL Total Protein 5.5 L (6.3-8.2) g/dL Albumin 3.0 L (3.5-5.0) g/dL 09/24/22 09/24/22 Range/Units 14:20 14:21 WBC (3.8-10.6) k/uL RBC (3.80-5.40) m/uL Hgb (11.4-16.0) gm/dL Hct (34.0-46.0) % MCV (80.0-100.0) fL MCH (25.0-35.0) pg MCHC (31.0-37.0) g/dL RDW (11.5-15.5) % Plt Count (150-450) k/uL MPV Neutrophils % % Lymphocytes % % Monocytes % % Eosinophils % % Basophils % % Neutrophils # (1.3-7.7) k/uL Lymphocytes # (1.0-4.8) k/uL Monocytes # (0-1.0) k/uL Eosinophils # (0-0.7) k/uL Basophils # (0-0.2) k/uL PT (9.0-12.0) sec INR (<1.2) APTT (22.0-30.0) sec Sodium (137-145) mmol/L Potassium (3.5-5.1) mmol/L Chloride (98-107) mmol/L Carbon Dioxide (22-30) mmol/L Anion Gap mmol/L BUN (7-17) mg/dL Creatinine (0.52-1.04) mg/dL Est GFR (CKD-EPI)AfAm (>60 ml/min/1.73 sqM) Est GFR (CKD-EPI)NonAf (>60 ml/min/1.73 sqM) Glucose (74-99) mg/dL POC Glucose (mg/dL) 174 H (70-110) mg/dL POC Glu Mail Handler Equipment Operator ID Glenn Coley Calcium (8.4-10.2) mg/dL Total Bilirubin (0.2-1.3) mg/dL AST (14-36) U/L ALT (4-34) U/L Alkaline Phosphatase (38-126) U/L Creatine Kinase (30-135) U/L Troponin I <0.012 (0.000-0.034) ng/mL Total Protein (6.3-8.2) g/dL Albumin (3.5-5.0) g/dL Critical Care Time Critical Care Time: Yes Total Critical Care Time: 35 Disposition Clinical Impression: Cerebrovascular accident (CVA), Weakness Disposition: ADMITTED IP TO THIS [facility] Condition: Stable Is patient prescribed a controlled substance at d/c from ED?: No Referrals: Medhat Asif DO [Primary Care Provider] - 1-2 days Time of Disposition: 16:29
--- NOTE | 2022-09-24 14:34 | CT ---
EXAMINATION TYPE: CT angio head neck CT DLP: 535.5 mGycm, Automated exposure control for dose reduction was used. DATE OF EXAM: 09/24/2022 2:29 PM COMPARISON: CTA head neck 08/23/2021. CLINICAL INDICATION:Female, 71 years old with history of Neuro deficit, acute, stroke suspected; PHH, RT side deficits, possible hx CVA. TECHNIQUE: Axially acquired helical CT angiogram of the head and neck was obtained with contrast util izing 65 cc of Isovue-370 administered intravenously. Axial images are supplemented with 3D reconstru ctions which were post-processed at an independent workstation. NASCET criteria used. FINDINGS: Carotid/Vascular Structures: Normal 3 vessel origin from the aortic arch. No significant plaque or st enosis along the common carotid arteries bilaterally. Mild peripheral mixed plaque right carotid bulb extends into proximal internal carotid artery without significant stenosis. There is again more mode rate to severe mixed plaque in the left proximal internal carotid artery causing stenosis approaching but under 50%. Patent external carotid arteries bilaterally without significant stenosis. There are codominant vertebral arteries filling the basilar artery. There is no significant focal josé miguel nosis or aneurysm in the posterior circulation. There are patent bilateral posterior communicating ar teries seen. Anterior circulation shows patent anterior communicating artery. There is no significant focal stenosis or aneurysm seen. Other: Partial visualization of right-sided pacemaker device along with the known right-sided FUEL VERIFICATION TECHNICIAN shun t catheter extending over the anterior upper thorax. Multilevel spurring in the cervicothoracic spine is seen. IMPRESSION: No significant stenosis in the common or internal carotid arteries bilaterally. No signi ficant stenosis or aneurysm at the level of the [place]. NASCET criteria was used in interpretation of this exam?
[2022-09-24 14:41] LABS: Partial Thromboplastin Time 23.3 sec (22.0-30.0); Prothrombin Time 10.8 sec (9.0-12.0)
[2022-09-24 14:44] LABS: ALT 25 U/L (4-34); AST 29 U/L (14-36); African American GFR (CKD) >90 (>60 ml/min/1.73 sqM); Alkaline Phosphatase 82 U/L (38-126); Anion Gap 5 mmol/L; Blood Urea Nitrogen 20 mg/dL (7-17); Calcium 8.2 mg/dL (8.4-10.2); Carbon Dioxide 25 mmol/L (22-30); Chloride 106 mmol/L (98-107); Creatine Kinase 44 U/L (30-135); Glucose 166 mg/dL (74-99); Non-African American GFR(CKD) >90 (>60 ml/min/1.73 sqM); Sodium 136 mmol/L (137-145); Total Bilirubin 0.5 mg/dL (0.2-1.3); Total Protein 5.5 g/dL (6.3-8.2)
--- NOTE | 2022-09-24 14:48 | XR ---
EXAMINATION TYPE: XR chest 2V DATE OF EXAM: 09/24/2022 2:43 PM COMPARISON: Chest radiographs from 09/16/2022 TECHNIQUE: XR chest 2V Frontal and lateral views of the chest. CLINICAL INDICATION:Female, 71 years old with history of altered mental status; FINDINGS: Lungs/Pleura: There is no evidence of pleural effusion, focal consolidation, or pneumothorax. Pulmonary vascularity: Unremarkable. Heart/mediastinum: Cardiomediastinal silhouette is prominent in size. Two lead cardiac conduction dev ice overlying the right hemithorax with lead tips projecting over the right ventricle and right atriu m. Atherosclerosis of the arterial vasculature versus coronary stent graft. Musculoskeletal: No acute osseous pathology. Conduction leads terminating over the spine. IMPRESSION: No acute cardiopulmonary disease/process. No significant change from prior.
[2022-09-24 14:50] LABS: Potassium 4.2 mmol/L (3.5-5.1)
[2022-09-24] MEDS ORDERED: ASPIRIN 325 MG TAB PO STA (16:24)
[2022-09-24] MEDS ORDERED: NALOXONE 0.4 MG/ML 1 ML VIAL IV PRN (16:24)
[2022-09-24] MEDS: SODIUM CHLORIDE 0.9% 1,000 ML IV SCH (17:48)
--- NOTE | 2022-09-24 18:35 | P.HPIM ---
History of Present Illness H&P Date: 09/24/22 Chief Complaint: generalized weakness 71-year-old woman with a history of CVA with right-sided residual deficits, CAD, diabetes, hyperlipidemia, hypertension, KATI, hypothyroidism presented for evaluation of generalized weakness and right-sided weakness. Apparently, patient had been living at home with home care services once weekly along with her who helps her with her IADLs. Today, she was seen by her physical therapist, whom she sees once weekly. She was told by this physical therapist that patient was not "acting like herself". At this point, patient's also felt that it was becoming harder to take care of the patient at home as a consequence of her very recently worsening right-sided weakness. In addition, patient's 's noted that patient has had multiple falls at home and has been less and less mobile when not working with physical therapy in between sessions. He also feels that his speech has become more slurred than it has been in the past. Due to concerns over these issues, he agreed that patient needs to be evaluated for worsening right-sided weakness as well as dysarthria. Patient denies fevers, chills, nausea, vomiting, chest pain, palpitations, syncope, presyncope, cough, dyspnea, abdominal pain, constipation, diarrhea, dysuria, numbness of extremities. She does report worsening weakness of the right side as well as increased difficulty with speech. In the emergency room, patient was afebrile, 129/84, heart rate 90, 86% on room air. CBC is remarkable for thrombocytopenia to 126. Basic metabolic panel shows sodium of 136, BUN of 20, otherwise unremarkable. Liver function tests show total protein of 5.5, albumin of 3. Troponin was less than 0.012. Coags are unremarkable. Brain CT shows no acute intracranial process, but does show remote injuries the right frontal lobe and left basal ganglia. EKG shows atrial paced rhythm with normal axis and no evidence of acute ischemia, does show poor R-wave progression consistent with old infarct. CT angiography of the head and neck did not show any significant stenosis of the ICA bilaterally or vertebral artery. Chest x-ray demonstrates clear parenchyma bilaterally, normal sized heart, no acute infiltrates or opacities, dual-chamber permanent pacemaker with generator placed in the right chest. Case was discussed with emergency room physician and decision was made to admit the patient for workup of worsening right-sided weakness and dysarthria. All Systems reviewed and pertinent positives and negatives noted in HPI, all other symptoms are negative Gen: in no apparent distress, resting comfortably in bed Eyes: PERRL, no scleral injection or icterus HENT: normocephalic, atraumatic, good hearing acuity, moist mucous membranes Neck: no tracheal deviation, full range of motion Resp: good air exchange, breathing comfortably with no accessory muscle use, no tactile fremitus, clear to auscultation bilaterally CVS: good distal perfusion x 4, no pitting edema, regular rate and rhythm without murmurs GI: soft, NTTP, ND, no hepatosplenomegaly : no suprapubic tenderness, no CVAT, [place] catheter not present MSK: no clubbing, no cyanosis, no noted contractures of extremities Skin: no noted rashes, petechiae; temperature of skin is appropriate Neuro: Patient has 3+ to 4 minus out of 5 right upper extremity motor weakness, 3+ out of 5 motor weakness of the right lower extremity, dysarthria, cranial nerves II through XII are intact, no sensory loss Psych: cooperative, euthymic mood, insight and judgment intact Labs and imaging as above Assessment: Right-sided weakness Dysarthria History of CVA CAD Diabetes type 2 Hypertension Hyperlipidemia KATI Hypothyroidism Plan: Vital signs reviewed and noted in the HPI Lab work reviewed and noted in the HPI EKG and CXR are personally interpreted and noted in the HPI CT angiography of the head and neck is reviewed and noted in HPI CT of the head is reviewed and noted in HPI Case was discussed with the Emergency Room provider and decision was made to admit the patient for right-sided weakness, dysarthria Neurology consultation Resume lisinopril 5 mg daily, metoprolol 25 mg twice a day, Resume levothyroxine 125 g daily Resume Levemir 30 units daily, 22 units at bedtime Start 5 units before meals 3 times a day of lispro Sliding scale insulin Start patient on aspirin 81 mg daily MRI of the brain without contrast ordered Echocardiogram ordered TSH, lipid panel, A1c ordered PT/OT/speech therapy Patient is DO NOT RESUSCITATE/DO NOT INTUBATE , Reji, is designated surrogate decision maker Past Medical History Past Medical History: Coronary Artery Disease (CAD), Chest Pain / Angina, Heart Failure, Diabetes Mellitus, Eye Disorder, GERD/Reflux, Hyperlipidemia, Hypertension, Myocardial Infarction ([place]), Osteoarthritis (OA), Sleep Apnea/CPAP/BIPAP, Thyroid Disorder Additional Past Medical History / Comment(s): hx hypotension/cardiogenic shock, dizziness, junctional rhythm. Normal pressure hydrocephalus, neuropathy bilateral feet/toes, chronic back pain, RLS, embedded kidney stones, bilateral macular degeneration, IBS, narcolepsy, gout, SEE DR MORALES'S HISTORY AND PHYSICAL FOR CARDIAC HISTORY. PACEMAKER SITE INFECTED Last Myocardial Infarction Date:: 12/27/19 History of Any Multi-Drug Resistant Organisms: None Reported Past Surgical History: Back Surgery, EPS, Heart Catheterization With Stent, Joint Replacement, Orthopedic Surgery, Pacemaker, Tubal Ligation Additional Past Surgical History / Comment(s): 4 cardiac stents, low back surgery, brain shunt, colonoscopy, TOTAL LEFT KNEE. pacemaker removed 07/30/20 due to infection, Pacemaker placed in August 2020, Past Anesthesia/Blood Transfusion Reactions: Motion Sickness, Postoperative Nausea & Vomiting (PONV) Date of Last Stent Placement:: 12/27/19 Type of Cardiac Device: Permanent Pacemaker Device Placement Date:: MAR 2020 Past Psychological History: Anxiety Smoking Status: Never smoker Past Alcohol Use History: Occasional Past Drug Use History: None Reported - Past Family History Father History Unknown: Yes Family Medical History: Congestive Heart Failure (CHF), Hypertension Mother History Unknown: Yes Family Medical History: Congestive Heart Failure (CHF), Hypertension Brother(s) Family Medical History: Cancer, Myocardial Infarction ([place]) Additional Family Medical History / Comment(s): One brother had an [place]. Another brother had prostate cancer. Medications and Allergies Home Medications Medication Instructions Recorded Confirmed Type Colchicine [Colcrys] 0.6 - 1.2 mg PO DIRECTED PRN 08/11/17 09/24/22 History Nitroglycerin Sl Tabs [Nitrostat] 0.4 mg SL Q5M PRN 08/11/17 09/24/22 History DULoxetine HCL [Cymbalta] 60 mg PO BID 12/27/19 09/24/22 History Ezetimibe [Zetia] 10 mg PO HS 12/27/19 09/24/22 History Insulin Lispro [humaLOG Kwikpen] See Protocol SQ AC-TID 12/27/19 09/24/22 History Insulin Detemir [Levemir Flextouch 22 units SQ HS 07/29/20 09/24/22 History Pen] Levothyroxine Sodium [Levoxyl] 125 mcg PO DAILY 07/29/20 09/24/22 History Gabapentin 300 mg PO BID 05/14/21 09/24/22 History Lidocaine 5% Oint [Xylocaine 5% 1 applic TOPICAL DAILY PRN 05/14/21 09/24/22 History Oint] Metoprolol Tartrate [Lopressor] 25 mg PO BID 05/14/21 09/24/22 History Atorvastatin Calcium [Lipitor] 40 mg PO DAILY 09/24/22 09/24/22 History Donepezil [Aricept] 5 mg PO HS 09/24/22 09/24/22 History Insulin Detemir [Levemir Flexpen] 30 units SQ DAILY 09/24/22 09/24/22 History Meclizine [Antivert] 12.5 - 25 mg PO BID PRN 09/24/22 09/24/22 History Omeprazole [PriLOSEC] 20 mg PO DAILY 09/24/22 09/24/22 History Oxybutynin Chloride [Ditropan XL] 5 mg PO BID 09/24/22 09/24/22 History lisinopriL [Zestril] 5 mg PO DAILY 09/24/22 09/24/22 History Allergies Allergy/AdvReac Type Severity Reaction Status Date / Time Penicillins Allergy Rash/Hives Verified 09/24/22 15:29 Physical Exam Osteopathic Statement: *. No significant issues noted on an osteopathic structural exam other than those noted in the History and Physical/Consult. Vitals: Vital Signs Temp Pulse Resp BP Pulse Ox 09/24/22 14:05 97.9 F 90 18 129/84 96 Intake and Output 09/24/22 09/24/22 09/24/22 06:59 14:59 22:59 Other: Weight 74.843 kg Results CBC & Chem 7: 09/24/22 14:20 09/24/22 14:20 Labs: Abnormal Lab Results - Last 24 Hours (Table) 09/24/22 09/24/22 09/24/22 Range/Units 14:20 14:20 14:21 Plt Count 126 L (150-450) k/uL Sodium 136 L (137-145) mmol/L BUN 20 H (7-17) mg/dL Glucose 166 H (74-99) mg/dL POC Glucose (mg/dL) 174 H (70-110) mg/dL Calcium 8.2 L (8.4-10.2) mg/dL Total Protein 5.5 L (6.3-8.2) g/dL Albumin 3.0 L (3.5-5.0) g/dL
[2022-09-24] MEDS: GABAPENTIN 300 MG CAP PO SCH (21:06)
[2022-09-24] MEDS: INSULIN DETEMIR (LEVEMIR) 100 UNIT/ML SYR SQ SCH (21:07)
[2022-09-24] MEDS: DONEPEZIL 5 MG TAB PO SCH (21:07)
[2022-09-24] MEDS: DULoxetine HCL 60 MG CAPSULE.DR PO SCH (21:07)
[2022-09-24] MEDS: OXYBUTYNIN XL 5 MG TAB.ER.24 PO SCH (21:07)
[2022-09-24] MEDS: METOPROLOL TARTRATE 25 MG TAB PO SCH (21:07)
[2022-09-24] MEDS: EZETIMIBE 10 MG TAB PO SCH (21:07)
[2022-09-24 21:09] LABS: Glucose,Whole Blood 63 mg/dL (70-110)
[2022-09-24 22:01] LABS: Glucose,Whole Blood 104 mg/dL (70-110)
[2022-09-24 23:25] LABS: Glucose,Whole Blood 107 mg/dL (70-110)
[2022-09-25 04:52] LABS: Appearance,Urine Turbid (Clear); Bacteria,Urine Many /hpf; Bilirubin,Urine Negative (Negative); Blood,Urine Small (Negative); Color,Urine Yellow; Glucose,Urine (UA) Negative (Negative); Ketones,Urine Negative (Negative); Leukocyte Esterase,Urine Large (Negative); Nitrite,Urine Negative (Negative); PH, Urine 7.5 (5.0-8.0); Protein,Urine 1+ (Negative); Specific Gravity,Urine 1.045 (1.001-1.035); WBC,Urine 97 /hpf (0-5)
[2022-09-25] MEDS: SODIUM CHLORIDE 0.9% 1,000 ML IV SCH ×2 (05:27→17:56)
[2022-09-25 06:20] LABS: Glucose,Whole Blood 117 mg/dL (70-110)
[2022-09-25] MEDS: INSULIN ASPART (NovoLOG) 100 UNIT/ML VIAL SQ SCH ×6 (06:34→17:56)
[2022-09-25 08:28] LABS: Basophils % (A) 0 %; Eosinophils % (A) 0 %; HCT 37.6 % (34.0-46.0); HGB 12.6 gm/dL (11.4-16.0); Lymphocytes # (A) 1.8 k/uL (1.0-4.8); Lymphocytes % (A) 29 %; MCH 29.3 pg (25.0-35.0); MCHC 33.6 g/dL (31.0-37.0); MCV 87.1 fL (80.0-100.0); Mean Platelet Volume 9.5; Monocytes # (A) 0.4 k/uL (0-1.0); Monocytes % (A) 6 %; Neutrophils # (A) 3.8 k/uL (1.3-7.7); Neutrophils % (A) 62 %; Platelet Count 117 k/uL (150-450); RBC 4.31 m/uL (3.80-5.40); WBC 6.2 k/uL (3.8-10.6)
[2022-09-25] MEDS: GABAPENTIN 300 MG CAP PO SCH ×2 (08:39→20:37)
[2022-09-25] MEDS: PANTOPRAZOLE 40 MG TABLET PO SCH (08:39)
[2022-09-25] MEDS: LEVOTHYROXINE 125 MCG TAB PO SCH (08:40)
[2022-09-25] MEDS: ASPIRIN 81 MG PO SCH (08:40)
[2022-09-25] MEDS: DULoxetine HCL 60 MG CAPSULE.DR PO SCH ×2 (08:40→20:38)
[2022-09-25] MEDS: METOPROLOL TARTRATE 25 MG TAB PO SCH ×2 (08:40→20:37)
[2022-09-25] MEDS: OXYBUTYNIN XL 5 MG TAB.ER.24 PO SCH ×2 (08:40→20:38)
[2022-09-25] MEDS: INSULIN DETEMIR (LEVEMIR) 100 UNIT/ML SYR SQ SCH ×2 (08:40→20:38)
[2022-09-25] MEDS: ATORVASTATIN 40 MG TAB PO SCH (08:40)
[2022-09-25 08:57] LABS: African American GFR (CKD) >90 (>60 ml/min/1.73 sqM); Anion Gap 6 mmol/L; Blood Urea Nitrogen 13 mg/dL (7-17); Calcium 8.4 mg/dL (8.4-10.2); Carbon Dioxide 28 mmol/L (22-30); Chloride 106 mmol/L (98-107); Glucose 147 mg/dL (74-99); Magnesium 1.3 mg/dL (1.6-2.3); Non-African American GFR(CKD) >90 (>60 ml/min/1.73 sqM); Potassium 3.9 mmol/L (3.5-5.1); Sodium 140 mmol/L (137-145)
[2022-09-25] MEDS ORDERED: lisinopriL 5 MG TAB PO SCH (09:00)
[2022-09-25] MEDS: MAGNESIUM SULFATE-D5W PMX 1 GM in DEXTROSE/WATER 1 100ML.BAG IVPB SCH ×4 (09:34→13:39)
--- NOTE | 2022-09-25 10:55 | P.PN ---
Subjective Progress Note Date: 09/25/22 Hospital Course: 71-year-old woman with a history of CVA with right-sided residual deficits, CAD, diabetes, hyperlipidemia, hypertension, KATI, hypothyroidism presented for evaluation of generalized weakness and right-sided weakness. Patient also had multiple recent falls at home. had also noted that her speech is worsening. In the emergency room, patient was afebrile, 129/84, heart rate 90, 86% on room air. CBC is remarkable for thrombocytopenia to 126. Basic metabolic panel shows sodium of 136, BUN of 20, otherwise unremarkable. Liver function tests show total protein of 5.5, albumin of 3. Troponin was less than 0.012. Coags are unremarkable. Brain CT shows no acute intracranial process, but does show remote injuries the right frontal lobe and left basal ganglia. EKG shows atrial paced rhythm with normal axis and no evidence of acute ischemia, does show poor R-wave progression consistent with old infarct. CT angiography of the head and neck did not show any significant stenosis of the ICA bilaterally or vertebral artery. Chest x-ray demonstrates clear parenchyma bilaterally, normal sized heart, no acute infiltrates or opacities, dual-chamber permanent pacemaker with generator placed in the right chest. Patient admitted for workup of worsening right-sided weakness and dysarthria. Subjective: Patient seen and examined at bedside. No acute events overnight. Continues to have slurred speech. Denies any other new complaints. Pertinent positives and negatives as discussed above, a complete review of systems was performed and all other systems are negative. Vitals Signs Reviewed. . General: nontoxic, no distress, appears at stated age Derm: warm, dry Head: atraumatic, normocephalic, symmetric Eyes: EOMI, no lid lag, anicteric sclera Mouth: no lip lesion, mucus membranes moist Cardiovascular: S1S2 reg, no murmur Lungs: CTA bilateral, no rhonchi, no rales , no accessory muscle use Abdominal: soft, nontender to palpation, no guarding, no appreciable organomegaly Ext: no gross muscle atrophy, no edema, no contractures Neuro: Has significant dysarthria, 4/5 strength in right upper and lower extremity Psych: Alert, oriented, appropriate affect Data Reviewed Today: Pertinent Labs: WBC 6.2, hemoglobin 12.6, platelet 117, sodium 140, creatinine 0.56, blood sugars range between 107-147, magnesium 1.3, TSH 1.52 Imaging: No new imaging today Assessment and Plan: Active: Worsening right-sided weakness Dysarthria history of CVA with right sided residual deficits Hypomagnesemia Type 2 diabetes Mild thrombocytopenia Hypertension, uncontrolled -Neurology consulted -MRI brain without contrast pending -Echocardiogram pending -PT/OT/speech therapy -4 g IV magnesium sulfate ordered, repeat BMP and magnesium tomorrow -On home dose of Levemir, aspart 5 units 3 times a day, and sliding scale insulin, no changes today -No active bleeding, repeat CBC tomorrow -Lisinopril increased to 20 mg daily Resolved: Hyponatremia Chronic: CAD Dyslipidemia Hypothyroidism DVT ppx: Subcu heparin Code status: DNR/DNI Anticipated discharge place: Pending clinical course Anticipated discharge time: Pending clinical course Objective - Vital Signs Vital signs: Vital Signs Temp 97.4 F L 09/25/22 08:00 Pulse 60 09/25/22 08:00 Resp 18 09/25/22 08:00 BP 164/79 09/25/22 08:00 Pulse Ox 98 09/25/22 08:28 FiO2 Intake & Output 09/24/22 09/25/22 09/25/22 18:59 06:59 18:59 Intake Total 118 Output Total 200 Balance -200 118 Weight 74.843 kg 74.843 kg Intake: Oral 118 Output: Urine 200 Other: Voiding Method Incontinent Incontinent External Catheter External Catheter # Voids 2 # Bowel Movements 1 1 - Labs CBC & Chem 7: 09/25/22 08:05 09/25/22 08:05 Labs: Abnormal Lab Results - Last 24 Hours (Table) 09/24/22 09/24/22 09/24/22 Range/Units 14:20 14:20 14:21 Plt Count 126 L (150-450) k/uL Sodium 136 L (137-145) mmol/L BUN 20 H (7-17) mg/dL Glucose 166 H (74-99) mg/dL POC Glucose (mg/dL) 174 H (70-110) mg/dL Calcium 8.2 L (8.4-10.2) mg/dL Magnesium (1.6-2.3) mg/dL Total Protein 5.5 L (6.3-8.2) g/dL Albumin 3.0 L (3.5-5.0) g/dL Urine Appearance (Clear) Ur Specific [place] (1.001-1.035) Urine Protein (Negative) Urine Blood (Negative) Ur Leukocyte Esterase (Negative) Urine WBC (0-5) /hpf Urine Bacteria (None) /hpf 09/24/22 09/25/22 09/25/22 Range/Units 21:03 04:30 06:19 Plt Count (150-450) k/uL Sodium (137-145) mmol/L BUN (7-17) mg/dL Glucose (74-99) mg/dL POC Glucose (mg/dL) 63 L 117 H (70-110) mg/dL Calcium (8.4-10.2) mg/dL Magnesium (1.6-2.3) mg/dL Total Protein (6.3-8.2) g/dL Albumin (3.5-5.0) g/dL Urine Appearance Turbid H (Clear) Ur Specific [place] 1.045 H (1.001-1.035) Urine Protein 1+ H (Negative) Urine Blood Small H (Negative) Ur Leukocyte Esterase Large H (Negative) Urine WBC 97 H (0-5) /hpf Urine Bacteria Many H (None) /hpf 09/25/22 09/25/22 Range/Units 08:05 08:05 Plt Count 117 L (150-450) k/uL Sodium (137-145) mmol/L BUN (7-17) mg/dL Glucose 147 H (74-99) mg/dL POC Glucose (mg/dL) (70-110) mg/dL Calcium (8.4-10.2) mg/dL Magnesium 1.3 L (1.6-2.3) mg/dL Total Protein (6.3-8.2) g/dL Albumin (3.5-5.0) g/dL Urine Appearance (Clear) Ur Specific [place] (1.001-1.035) Urine Protein (Negative) Urine Blood (Negative) Ur Leukocyte Esterase (Negative) Urine WBC (0-5) /hpf Urine Bacteria (None) /hpf
[2022-09-25 11:42] LABS: Glucose,Whole Blood 243 mg/dL (70-110)
[2022-09-25] MEDS: HEPARIN SODIUM,PORCINE/PF 5,000 UNIT/0.5 ML SYRINGE SQ SCH ×2 (16:01→23:22)
[2022-09-25 16:22] LABS: Glucose,Whole Blood 133 mg/dL (70-110)
--- NOTE | 2022-09-25 16:56 | P.CNNES ---
History of Present Illness Consult date: 09/25/22 Requesting physician: Mehran Call Reason for Consult: Right-sided weakness History of Present Illness: Patient is a 71-year-old right-handed female with history of diabetes, previous history of CVA with residual right hemiparesis, came to the hospital by ambulance yesterday at 2:03 PM. EMS flow sheet not available in the chart. Patient and her provided with a history. Patient's states that patient lives at her home with her , walks with a walker for last 1 year. She falls "quite a bit", however she fell twice in the last couple days. She just lost balance and fell. Did not pass out. She required help to get up. Yesterday when the homecare person came, she could not lift her up, as it was " weight". She could hardly walk with her walker. She was dragging her foot Heist over. She did not look good at all, therefore she called the ambulance. Patient does have history of previous stroke, with significant slurred speech, and appears to be slightly worse lately. Per , the speech is sometimes better, sometimes not as good. Patient denies any numbness tingling or any visual disturbance or any worsening of her baseline weakness. Vital signs on arrival blood pressure 129/84, pulse rate 90, temperature 97.9. Blood test shows normal CBC, PT/PTT, normal potassium, sodium 136, BUN 20, creatinine 0.61. Hepatic panel is normal, CK normal. Troponin negative. UA shows large amount of leukocyte esterase, 97 WBC and many bacteria. TSH is normal. CT head revealed no acute intracranial process. Remote injuries to the right frontal lobe and left basal ganglia. I personally reviewed CT head, agree with the findings. The right frontal ischemic stroke was present on computed tomography scan of head from 01/18/2021, whereas the left basal ganglionic CVA probably happened around 05/02/2022 CT head, where it appears subacute in nature. Evidence of right posterior approach ventriculostomy catheter tip near midline in the right lateral ventricle. EKG shows electronic atrial pacemaker. Chest x-ray showed no acute cardiopulmonary disease. Patient has history of diabetes for 9 years, never smoked, not a drinker. Patient does take insulin, donepezil 5 mg, Lipitor 40 mg, metoprolol, Cymbalta 60 mg twice a day Zetia. Patient states she does not take any antiplatelet medication at home. Review of Systems Constitutional: Denies chills, Denies fever Eyes: denies blurred vision, denies diplopia, denies pain Ears: deny: decreased hearing, ear discharge Ears, nose, mouth and throat: Denies headache, Denies sore throat Cardiovascular: Denies chest pain, Denies shortness of breath Respiratory: Denies cough, Denies excessive sputum Gastrointestinal: Denies abdominal pain, Denies diarrhea, Denies nausea, Denies vomiting Genitourinary: Reports urge incontinence, Denies dysuria, Denies hematuria, Denies stress incontinence Musculoskeletal: Denies low back pain, Denies myalgias, Denies neck pain Integumentary: Denies pruritus, Denies rash Neurological: Reports as per HPI Psychiatric: Denies anxiety, Denies depression Endocrine: Reports fatigue, Denies weight change Hematologic/Lymphatic: Denies easy bleeding, Denies easy bruising Past Medical History Past Medical History: Coronary Artery Disease (CAD), Chest Pain / Angina, Heart Failure, CVA/TIA, Diabetes Mellitus, Eye Disorder, GERD/Reflux, Hyperlipidemia, Hypertension, Myocardial Infarction (TN), Osteoarthritis (OA), Sleep Apnea/CPAP/BIPAP, Thyroid Disorder Additional Past Medical History / Comment(s): hx hypotension/cardiogenic shock, dizziness, junctional rhythm. Normal pressure hydrocephalus, neuropathy bilateral feet/toes, chronic back pain, RLS, embedded kidney stones, bilateral macular degeneration, IBS, narcolepsy, gout, SEE DR MORALES'S HISTORY AND PHYSICAL FOR CARDIAC HISTORY. PACEMAKER SITE INFECTED Last Myocardial Infarction Date:: 12/27/19 History of Any Multi-Drug Resistant Organisms: None Reported Past Surgical History: Back Surgery, EPS, Heart Catheterization With Stent, Joint Replacement, Orthopedic Surgery, Pacemaker, Tubal Ligation Additional Past Surgical History / Comment(s): 4 cardiac stents, low back surgery, brain shunt, colonoscopy, TOTAL LEFT KNEE. pacemaker removed 07/30/20 due to infection, Pacemaker placed in August 2020, Past Anesthesia/Blood Transfusion Reactions: Motion Sickness, Postoperative Nausea & Vomiting (PONV) Date of Last Stent Placement:: 12/27/19 Type of Cardiac Device: Permanent Pacemaker Device Placement Date:: MAR 2020 Past Psychological History: Anxiety Smoking Status: Never smoker Past Alcohol Use History: Occasional Past Drug Use History: None Reported - Past Family History Father History Unknown: Yes Family Medical History: Congestive Heart Failure (CHF), Hypertension Mother History Unknown: Yes Family Medical History: Congestive Heart Failure (CHF), Hypertension Brother(s) Family Medical History: Cancer, Myocardial Infarction (TN) Additional Family Medical History / Comment(s): One brother had an TN. Another brother had prostate cancer. Medications and Allergies Home Medications Medication Instructions Recorded Confirmed Type Colchicine [Colcrys] 0.6 - 1.2 mg PO DIRECTED PRN 08/11/17 09/24/22 History Nitroglycerin Sl Tabs [Nitrostat] 0.4 mg SL Q5M PRN 08/11/17 09/24/22 History DULoxetine HCL [Cymbalta] 60 mg PO BID 12/27/19 09/24/22 History Ezetimibe [Zetia] 10 mg PO HS 12/27/19 09/24/22 History Insulin Lispro [humaLOG Kwikpen] See Protocol SQ AC-TID 12/27/19 09/24/22 History Insulin Detemir [Levemir Flextouch 22 units SQ HS 07/29/20 09/24/22 History Pen] Levothyroxine Sodium [Levoxyl] 125 mcg PO DAILY 07/29/20 09/24/22 History Gabapentin 300 mg PO BID 05/14/21 09/24/22 History Lidocaine 5% Oint [Xylocaine 5% 1 applic TOPICAL DAILY PRN 05/14/21 09/24/22 History Oint] Metoprolol Tartrate [Lopressor] 25 mg PO BID 05/14/21 09/24/22 History Atorvastatin Calcium [Lipitor] 40 mg PO DAILY 09/24/22 09/24/22 History Donepezil [Aricept] 5 mg PO HS 09/24/22 09/24/22 History Insulin Detemir [Levemir Flexpen] 30 units SQ DAILY 09/24/22 09/24/22 History Meclizine [Antivert] 12.5 - 25 mg PO BID PRN 09/24/22 09/24/22 History Omeprazole [PriLOSEC] 20 mg PO DAILY 09/24/22 09/24/22 History Oxybutynin Chloride [Ditropan XL] 5 mg PO BID 09/24/22 09/24/22 History lisinopriL [Zestril] 5 mg PO DAILY 09/24/22 09/24/22 History Allergies Allergy/AdvReac Type Severity Reaction Status Date / Time Penicillins Allergy Rash/Hives Verified 09/24/22 15:29 Physical Examination - Vital Signs Vital Signs: Vital Signs Temp Pulse Pulse Resp BP BP Pulse Ox 09/25/22 08:28 98 09/25/22 04:00 97.6 F 60 16 176/89 98 09/25/22 02:00 60 18 09/25/22 00:30 98.3 F 60 18 169/84 99 09/24/22 22:59 60 16 170/90 95 09/24/22 20:30 60 24 143/91 96 09/24/22 20:00 60 15 143/88 95 09/24/22 19:30 61 16 155/78 96 09/24/22 19:00 60 12 153/76 96 09/24/22 18:00 97.7 F 60 17 140/73 95 09/24/22 17:30 60 13 149/90 09/24/22 17:00 60 12 164/88 09/24/22 16:30 60 28 H 159/84 09/24/22 16:00 60 12 152/87 09/24/22 15:30 60 13 166/85 09/24/22 15:00 60 19 153/78 98 09/24/22 14:30 60 12 148/71 99 09/24/22 14:22 61 19 09/24/22 14:05 97.9 F 90 18 129/84 96 Intake and Output 09/24/22 09/25/22 09/25/22 22:59 06:59 14:59 Intake Total 118 Output Total 200 Balance -200 118 Intake: Oral 118 Output: Urine 200 Other: Voiding Method Incontinent External Catheter # Voids 2 # Bowel Movements 1 Weight 74.843 kg Patient is an elderly female, in no acute distress. Patient is alert awake, states it is September and the year is . She knows that she lives in [facility], but does not know the name of this [facility] or the building. On given multiple prompts, patient states she is in group home. She knows name of the current president Mr. Doe. Her speech is moderately dysarthric but no aphasia. Patient can name and repeat very well. Attention, concentration and fund of knowledge is adequate. Detail cognitive functions tested deferred. On cranial nerve examination, pupils are equal, round and reacting to light, visual waddell are full on confrontation, with no neglect on double simultaneous stimulation. Extraocular muscles are intact with no nystagmus. Patient has right facial asymmetry. Her tongue protrudes to the midline. Palatal elevation and sensation normal hearing and shoulder shrug normal, facial sensation normal. On muscle strength testing, there is right pronator drift. Muscle strength is (right/left) deltoid 4/5, biceps 5-/5, triceps 4+/5, electronics design engineer 5/5. Hip flexion 5- /5, ankle dorsiflexion 2/5. Deep tendon reflexes are symmetric and plantar is up on the right, down left. Sensory to touch is equal with no neglect on double simultaneous stimulation. Cerebellar function showed no ataxia for [id number] testing. No dysdiadochokinesia. No ataxia for [id number] testing on either side. Tone is slightly increased on the right and bulk of muscles normal. Gait deferred.. On general examination, there is no carotid bruit or murmur, S1-S2 audible. Chest is clear on consultation. Abdomen is soft nontender. No organomegaly, bowel sounds present. Peripheral pulses are present. No edema. Results - Laboratory Findings CBC and BMP: 09/25/22 08:05 09/25/22 08:05 Abnormal Lab Findings: Abnormal Labs 09/24/22 09/24/22 09/24/22 14:20 14:20 14:21 Plt Count 126 L Sodium 136 L BUN 20 H Glucose 166 H POC Glucose (mg/dL) 174 H Calcium 8.2 L Magnesium Total Protein 5.5 L Albumin 3.0 L Urine Appearance Ur Specific [place] Urine Protein Urine Blood Ur Leukocyte Esterase Urine WBC Urine Bacteria 09/24/22 09/25/22 09/25/22 21:03 04:30 06:19 Plt Count Sodium BUN Glucose POC Glucose (mg/dL) 63 L 117 H Calcium Magnesium Total Protein Albumin Urine Appearance Turbid H Ur Specific [place] 1.045 H Urine Protein 1+ H Urine Blood Small H Ur Leukocyte Esterase Large H Urine WBC 97 H Urine Bacteria Many H 09/25/22 09/25/22 08:05 08:05 Plt Count 117 L Sodium BUN Glucose 147 H POC Glucose (mg/dL) Calcium Magnesium 1.3 L Total Protein Albumin Urine Appearance Ur Specific [place] Urine Protein Urine Blood Ur Leukocyte Esterase Urine WBC Urine Bacteria Assessment and Plan Assessment: * Possible CVA, with worsening of balance, and slurred speech. * History of normal pressure hydrocephalus, status post ventriculoperitoneal shunting in 2017 * History of bilateral subdural hematoma 08/23/2021 * History of permanent pacemaker. * Diabetes * Hypertension * Hyperlipidemia * CAD * Hypothyroidism * History of CVA 05/02/2022 Plan: * Patient probably has subacute CVA. MRI cannot be performed because patient has pacemaker. * 2-D echo with bubble study to rule out PFO * CTA head and neck showed: CTA of head and neck revealed no significant stenosis in the common or internal carotid arteries bilaterally. No significant stenosis or aneurysm at the level of [place]. * Patient was not taking any antiplatelet medication at home. Patient has received aspirin 325 mg in the ER. Continue aspirin 81 mg daily. Avoid dual antiplatelet medication because history of subdural hematoma in the past and fall risk. * Fasting a.m. lipid panel * Hemoglobin A1c 9.7, consistent with poorly controlled diabetes. Recommend optimize control of diabetes to target A1c < 7.0. * Permissive hypertension for next 24-48 hours * Close neuro checks. * Telemetry monitoring rule out any arrhythmia * PT OT, speech therapy. * DVT prophylaxis: Heparin 5000 units subcu every 8 hours * Neurology will continue to follow. Thank you for the consult.
[2022-09-25 17:08] LABS: Chol/HDL Ratio 3.04 Ratio; LDL Cholesterol,Calculated 50.9 mg/dL (0.0-131.0)
[2022-09-25] MEDS: EZETIMIBE 10 MG TAB PO SCH (20:37)
[2022-09-25] MEDS: DONEPEZIL 5 MG TAB PO SCH (20:38)
[2022-09-25 20:57] LABS: Glucose,Whole Blood 81 mg/dL (70-110)
[2022-09-26 06:11] LABS: Glucose,Whole Blood 226 mg/dL (70-110)
[2022-09-26] MEDS: INSULIN ASPART (NovoLOG) 100 UNIT/ML VIAL SQ SCH ×6 (06:34→17:22)
[2022-09-26 08:10] LABS: African American GFR (CKD) >90 (>60 ml/min/1.73 sqM); Anion Gap 2 mmol/L; Blood Urea Nitrogen 14 mg/dL (7-17); Carbon Dioxide 25 mmol/L (22-30); Chloride 112 mmol/L (98-107); Glucose 197 mg/dL (74-99); Magnesium 1.8 mg/dL (1.6-2.3); Non-African American GFR(CKD) >90 (>60 ml/min/1.73 sqM); Potassium 4.1 mmol/L (3.5-5.1); Sodium 139 mmol/L (137-145)
[2022-09-26] MEDS: INSULIN DETEMIR (LEVEMIR) 100 UNIT/ML SYR SQ SCH ×2 (08:53→22:11)
[2022-09-26] MEDS: HEPARIN SODIUM,PORCINE/PF 5,000 UNIT/0.5 ML SYRINGE SQ SCH ×2 (08:53→15:45)
[2022-09-26] MEDS: OXYBUTYNIN XL 5 MG TAB.ER.24 PO SCH ×2 (08:54→22:10)
[2022-09-26] MEDS: GABAPENTIN 300 MG CAP PO SCH ×2 (08:54→22:10)
[2022-09-26] MEDS: PANTOPRAZOLE 40 MG TABLET PO SCH (08:54)
[2022-09-26] MEDS: SODIUM CHLORIDE 0.9% 1,000 ML IV SCH (08:54)
[2022-09-26] MEDS: lisinopriL 20 MG TAB PO SCH (08:54)
[2022-09-26] MEDS: ATORVASTATIN 40 MG TAB PO SCH (08:54)
[2022-09-26] MEDS: DULoxetine HCL 60 MG CAPSULE.DR PO SCH ×2 (08:54→22:11)
[2022-09-26] MEDS: LEVOTHYROXINE 125 MCG TAB PO SCH (08:54)
[2022-09-26] MEDS: ASPIRIN 81 MG PO SCH (08:54)
[2022-09-26] MEDS: METOPROLOL TARTRATE 25 MG TAB PO SCH ×2 (08:54→22:10)
--- NOTE | 2022-09-26 11:27 | P.PN ---
Subjective Progress Note Date: 09/26/22 Hospital Course: 71-year-old woman with a history of CVA with right-sided residual deficits, CAD, diabetes, hyperlipidemia, hypertension, KATI, hypothyroidism presented for evaluation of generalized weakness and right-sided weakness. Patient also had multiple recent falls at home. had also noted that her speech is worsening. In the emergency room, patient was afebrile, 129/84, heart rate 90, 86% on room air. CBC is remarkable for thrombocytopenia to 126. Basic metabolic panel shows sodium of 136, BUN of 20, otherwise unremarkable. Liver function tests show total protein of 5.5, albumin of 3. Troponin was less than 0.012. Coags are unremarkable. Brain CT shows no acute intracranial process, but does show remote injuries the right frontal lobe and left basal ganglia. EKG shows atrial paced rhythm with normal axis and no evidence of acute ischemia, does show poor R-wave progression consistent with old infarct. CT angiography of the head and neck did not show any significant stenosis of the ICA bilaterally or vertebral artery. Chest x-ray demonstrates clear parenchyma bilaterally, normal sized heart, no acute infiltrates or opacities, dual-chamber permanent pacemaker with generator placed in the right chest. Patient admitted for workup of worsening right-sided weakness and dysarthria. Neurology following. Echocardiogram pending. Patient likely discharge to subacute rehab. Subjective: Patient seen and examined at bedside. No acute events overnight. He denies any new complaints. at bedside, claims that her speech is at her baseline. Pertinent positives and negatives as discussed above, a complete review of systems was performed and all other systems are negative. Vitals Signs Reviewed. . General: nontoxic, no distress, appears at stated age Derm: warm, dry Head: atraumatic, normocephalic, symmetric Eyes: EOMI, no lid lag, anicteric sclera Mouth: no lip lesion, mucus membranes moist Cardiovascular: S1S2 reg, no murmur Lungs: CTA bilateral, no rhonchi, no rales , no accessory muscle use Abdominal: soft, nontender to palpation, no guarding, no appreciable organomegaly Ext: no gross muscle atrophy, no edema, no contractures Neuro: Has significant dysarthria, 4/5 strength in right upper and lower extremity Psych: Alert, oriented, appropriate affect Data Reviewed Today: Pertinent Labs: Sodium 139, potassium 4.1, magnesium 1.8, blood sugars range between 81-197 Imaging: No new imaging today Assessment and Plan: Active: Worsening right-sided weakness Frequent falls Dysarthria, now at baseline history of CVA with right sided residual deficits Type 2 diabetes Mild thrombocytopenia Hypertension, uncontrolled -Neurology following, unable to get MRI brain due to pacemaker, echocardiogram pending -On aspirin 81 mg daily and atorvastatin 40 mg daily -On telemetry -PT/OT/speech therapy -On home dose of Levemir, aspart 5 units 3 times a day, and sliding scale insulin, no changes today -Lisinopril 20 mg daily Resolved: Hyponatremia Hypomagnesemia Chronic: CAD Dyslipidemia Hypothyroidism DVT ppx: Subcu heparin Code status: DNR/DNI Anticipated discharge place: Subacute rehab Anticipated discharge time: Pending bed availability Objective - Vital Signs Vital signs: Vital Signs Temp 98.2 F 09/26/22 08:51 Pulse 69 09/26/22 08:51 Resp 15 09/26/22 08:51 BP 107/66 09/26/22 08:51 Pulse Ox 98 09/26/22 08:51 FiO2 Intake & Output 09/25/22 09/26/22 09/26/22 18:59 06:59 18:59 Intake Total 538 300 240 Output Total 200 Balance 338 300 240 Intake: Intake, IV Titration 300 Amount Sodium Chloride 0.9% 1, 300 000 ml @ 75 mls/hr IV . [id number] [facility] Rx#:[id number] Oral 538 240 Output: Urine 200 Other: Voiding Method Incontinent Incontinent External Catheter External Catheter # Voids 2 # Bowel Movements 1 - Labs CBC & Chem 7: 09/25/22 08:05 09/26/22 07:13 Labs: Abnormal Lab Results - Last 24 Hours (Table) 09/25/22 09/25/22 09/25/22 Range/Units 08:05 11:39 16:20 Chloride (98-107) mmol/L Glucose (74-99) mg/dL POC Glucose (mg/dL) 243 H 133 H (70-110) mg/dL Calcium (8.4-10.2) mg/dL HDL Cholesterol 34.90 L (40.00-60.00) mg/dL 09/26/22 09/26/22 Range/Units 06:09 07:13 Chloride 112 H (98-107) mmol/L Glucose 197 H (74-99) mg/dL POC Glucose (mg/dL) 226 H (70-110) mg/dL Calcium 8.0 L (8.4-10.2) mg/dL HDL Cholesterol (40.00-60.00) mg/dL
[2022-09-26 11:59] LABS: Glucose,Whole Blood 112 mg/dL (70-110)
--- NOTE | 2022-09-26 12:32 | CA ---
Transthoracic Echo Report Name: Luciana Granados Age: 71 Gender: F : 1950 Exam Date: 09/26/2022 09:04 Exam Location: [facility] Ht (in): 66 Wt (lb): 165 Ordering Physician: Jesika Logan MD Attending/Referring Phys: Retail Shift Manager Rosa Willoughby [facility] Procedure CPT: Indications: CVA Cardiac Hx: Technical Quality: Contrast 1: Total Dose (mL): Contrast 2: Total Dose (mL): MEASUREMENTS (Male / Female) Normal Values 2D ECHO LV Diastolic Diameter PLAX 3.2 cm 4.2 - 5.9 / 3.9 - 5.3 cm LV Systolic Diameter PLAX 2.3 cm IVS Diastolic Thickness 1.3 cm 0.6 - 1.0 / 0.6 - 0.9 cm LVPW Diastolic Thickness 1.2 cm 0.6 - 1.0 / 0.6 - 0.9 cm LV Relative Wall Thickness 0.8 LVOT Diameter 2.0 cm Ascending Aorta Diameter 3.0 cm M-MODE Aortic Root Diameter MM 3.0 cm LA Systolic Diameter MM 2.5 cm LA Ao Ratio MM 0.8 AV Cusp Separation MM 1.8 cm DOPPLER AV Peak Velocity 166.7 cm/s AV Peak Gradient 11.1 mmHg AV Mean Velocity 126.0 cm/s AV Mean Gradient 6.9 mmHg AV Velocity Time Integral 36.2 cm LVOT Peak Velocity 112.9 cm/s LVOT Peak Gradient 5.1 mmHg LVOT Velocity Time Integral 24.9 cm LVOT Stroke Volume 77.4 cm??? LVOT Stroke Volume Index 42.0 ml/m??? LVOT Cardiac Index 2426.0 cm???/min???m??? AV Area Cont Eq vti 2.1 cm??? AV Area Cont Eq pk 2.1 cm??? Mitral E Point Velocity 83.5 cm/s Mitral A Point Velocity 108.5 cm/s Mitral E to A Ratio 0.8 MV Deceleration Time 347.1 ms LV E' Lateral Velocity 4.6 cm/s Mitral E to LV E' Lateral Ratio 18.0 LV E' Septal Velocity 4.3 cm/s Mitral E to LV E' Septal Ratio 19.3 TR Peak Velocity 236.0 cm/s TR Peak Gradient 22.3 mmHg Right Atrial Pressure 3.0 mmHg Pulmonary Artery Systolic Pressu 25.3 mmHg Right Ventricular Systolic Press 27.3 mmHg FINDINGS Left Ventricle Moderately increased left ventricular wall thickness. Normal left ventricular wall motion. Left ventricular cavity size normal. Left ventricular ejection fraction is estimated at 55-60%. Right Ventricle Mild right ventricular dilatation. Catheter/pacemaker wire in the right ventricular cavity. Right Atrium Normal right atrial size. Left Atrium Normal left atrial size. Mitral Valve Moderate mitral annular calcification. Trace mitral regurgitation. Aortic Valve Trileaflet aortic valve. Aortic valve sclerosis. No aortic regurgitation. Tricuspid Valve Structurally normal tricuspid valve. Mild tricuspid regurgitation. Pulmonic Valve Structurally normal pulmonic valve. Mild pulmonic regurgitation. Pericardium No pericardial effusion. Aorta Normal size aortic root and proximal ascending aorta. CONCLUSIONS Normal LV size with moderate concentric LVH preserved contractility. Mitral annular calcification mild mitral regurgitation mild tricuspid regurgitation no significant pulmonary hypertension no pericardial effusion Previewed by: Dr. Ria Santiago MD (Electronically Signed) Final Date: 26 September 2022 12:31
[2022-09-26 14:32] VITALS: BMI 26.6
[2022-09-26 17:08] LABS: Glucose,Whole Blood 167 mg/dL (70-110)
--- NOTE | 2022-09-26 18:02 | P.PN ---
Subjective Progress Note Date: 09/26/22 Patient was seen for a follow-up. Patient is laying comfortably in the bed. Patient's was also present. Patient's daughter admits that patient is more weak on the right side, and her speech is more slurred than baseline. Patient has been following up with Dr. Plascencia, and has been diagnosed with dementia. She is on Aricept. Objective - Vital Signs Vital signs: Vital Signs Temp 98.2 F 09/26/22 08:51 Pulse 60 09/26/22 15:32 Resp 15 09/26/22 15:32 BP 128/73 09/26/22 15:32 Pulse Ox 96 09/26/22 15:32 FiO2 Intake & Output 09/25/22 09/26/22 09/26/22 18:59 06:59 18:59 Intake Total 538 300 240 Output Total 200 Balance 338 300 240 Weight 74.843 kg Intake: Intake, IV Titration 300 Amount Sodium Chloride 0.9% 1, 300 000 ml @ 75 mls/hr IV . [id number] [facility] Rx#:[id number] Oral 538 240 Output: Urine 200 Other: Voiding Method Incontinent Incontinent External Catheter External Catheter # Voids 2 1 # Bowel Movements 1 - Exam Patient is alert and awake in no distress. She has slight slow mentation. Her speech is moderately slurred. No aphasia. On muscle strength testing (right/left deltoid 4/5, biceps 5/5, triceps 5/5, link trainer maintenance worker 5/5, hip flexion 4+/5, ankle dorsiflexion 4-/5. Sensory to touch is equal bilaterally. No neglect. No ataxia for [id number] testing on either side. - Labs CBC & Chem 7: 09/27/22 06:50 09/27/22 06:50 Labs: Abnormal Lab Results - Last 24 Hours (Table) 09/26/22 09/26/22 09/26/22 Range/Units 06:09 07:13 11:51 Chloride 112 H (98-107) mmol/L Glucose 197 H (74-99) mg/dL POC Glucose (mg/dL) 226 H 112 H (70-110) mg/dL Calcium 8.0 L (8.4-10.2) mg/dL 09/26/22 Range/Units 16:56 Chloride (98-107) mmol/L Glucose (74-99) mg/dL POC Glucose (mg/dL) 167 H (70-110) mg/dL Calcium (8.4-10.2) mg/dL Assessment and Plan Assessment: * Acute ischemic stroke, with worsening right hemiparesis and slurred speech. Likely lacunar from small vessel disease. * History of normal pressure hydrocephalus, status post ventriculoperitoneal shunting in 2017 * History of bilateral subdural hematoma 08/23/2021 * History of permanent pacemaker. * Diabetes * Hypertension * Hyperlipidemia * CAD * Hypothyroidism * History of CVA 05/02/2022 * Vascular dementia Plan: * Patient probably has subacute CVA. MRI cannot be performed because patient has pacemaker. * 2-D echo revealed normal left ventricular size with moderate concentric LVH, EF 55-60%. Mitral annular calcification, mild MR. * CTA head and neck showed: CTA of head and neck revealed no significant stenosis in the common or internal carotid arteries bilaterally. No signi ficant stenosis or aneurysm at the level of [place]. * Patient was not taking any antiplatelet medication at home. Patient has received aspirin 325 mg in the ER. Continue aspirin 81 mg daily. Avoid dual antiplatelet medication because history of subdural hematoma in the past and fall risk. * Fasting a.m. lipid panel with cholesterol 106, LDL 50, HDL 34 triglycerides 101. Continue Lipitor 40 mg daily (home medication). * Hemoglobin A1c 9.7, consistent with poorly controlled diabetes. Recommend optimize control of diabetes to target A1c < 7.0. * Vitamin B12 531. * Optimize control of blood pressure to normotensive level. Target blood pressure <130/80. * Close neuro checks. * Telemetry monitoring rule out any arrhythmia * PT OT, speech therapy. * DVT prophylaxis: Heparin 5000 units subcu every 8 hours * Neurologically cleared for transfer to rehab. Discussed with patient's family in detail.
[2022-09-26 20:34] LABS: Glucose,Whole Blood 149 mg/dL (70-110)
[2022-09-26] MEDS: DONEPEZIL 5 MG TAB PO SCH (22:10)
[2022-09-27] MEDS: HEPARIN SODIUM,PORCINE/PF 5,000 UNIT/0.5 ML SYRINGE SQ SCH ×2 (00:51→09:04)
[2022-09-27 02:34] VITALS: RESP 16
[2022-09-27 06:28] LABS: Glucose,Whole Blood 64 mg/dL (70-110)
[2022-09-27] MEDS: INSULIN ASPART (NovoLOG) 100 UNIT/ML VIAL SQ SCH ×3 (06:32→11:42)
[2022-09-27] MEDS: SODIUM CHLORIDE 0.9% 1,000 ML IV SCH ×2 (06:33→09:05)
[2022-09-27 06:41] LABS: Glucose,Whole Blood 67 mg/dL (70-110)
[2022-09-27 06:59] LABS: Glucose,Whole Blood 89 mg/dL (70-110)
[2022-09-27 07:08] LABS: Basophils % (A) 0 %; Eosinophils % (A) 0 %; HCT 37.2 % (34.0-46.0); HGB 12.4 gm/dL (11.4-16.0); Lymphocytes # (A) 2.4 k/uL (1.0-4.8); Lymphocytes % (A) 38 %; MCH 29.7 pg (25.0-35.0); MCHC 33.4 g/dL (31.0-37.0); MCV 89.1 fL (80.0-100.0); Mean Platelet Volume 9.7; Monocytes # (A) 0.5 k/uL (0-1.0); Monocytes % (A) 8 %; Neutrophils # (A) 3.2 k/uL (1.3-7.7); Neutrophils % (A) 51 %; Platelet Count 124 k/uL (150-450); RBC 4.17 m/uL (3.80-5.40); RDW 14.1 % (11.5-15.5); WBC 6.3 k/uL (3.8-10.6)
[2022-09-27 08:42] LABS: African American GFR (CKD) >90 (>60 ml/min/1.73 sqM); Anion Gap 5 mmol/L; Blood Urea Nitrogen 11 mg/dL (7-17); Calcium 8.6 mg/dL (8.4-10.2); Carbon Dioxide 25 mmol/L (22-30); Chloride 112 mmol/L (98-107); Glucose 75 mg/dL (74-99); Non-African American GFR(CKD) 90 (>60 ml/min/1.73 sqM); Potassium 3.9 mmol/L (3.5-5.1); Sodium 142 mmol/L (137-145)
[2022-09-27] MEDS ORDERED: INSULIN DETEMIR (LEVEMIR) 100 UNIT/ML SYR SQ SCH ×2 (09:00→21:00)
[2022-09-27] MEDS: lisinopriL 20 MG TAB PO SCH (09:04)
[2022-09-27] MEDS: ASPIRIN 81 MG PO SCH (09:04)
[2022-09-27] MEDS: DULoxetine HCL 60 MG CAPSULE.DR PO SCH (09:04)
[2022-09-27] MEDS: LEVOTHYROXINE 125 MCG TAB PO SCH (09:04)
[2022-09-27] MEDS: METOPROLOL TARTRATE 25 MG TAB PO SCH (09:04)
[2022-09-27] MEDS: ATORVASTATIN 40 MG TAB PO SCH (09:04)
[2022-09-27] MEDS: PANTOPRAZOLE 40 MG TABLET PO SCH (09:04)
[2022-09-27] MEDS: OXYBUTYNIN XL 5 MG TAB.ER.24 PO SCH (09:04)
[2022-09-27] MEDS: GABAPENTIN 300 MG CAP PO SCH (09:04)
[2022-09-27 09:49] VITALS: TEMP 98.2
[2022-09-27 10:21] VITALS: BP 173/86; PULSE 62
--- NOTE | 2022-09-27 10:23 | P.DS ---
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 In the emergency room she underwent an extensive evaluation. Vital signs within normal limits. Laboratory analysis was remarkable for platelets of 126, BMP of 136, BUN of 20. CT brain demonstrated no acute process with remote injuries in the right frontal and left basal ganglia. Chest x-ray demonstrated no acute process. CT of the head and neck showed no significant stenosis of the ICA bilaterally or vertebral artery. Patient was admitted for further monitoring of her right-sided weakness. Neurology was consulted. Unfortunately the patient cannot undergo an MRI of the brain due to her dual-chamber pacemaker. Echocardiogram showed normal LV size with moderate concentric LVH, ejection fraction 55-60%. Residual measurement which showed a dual antiplatelet therapy as the patient has a history of a fall with a subdural hematoma in the past. At home she was not taking any antiplatelet medication and therefore aspirin will be new. Her blood pressures were slightly elevated and her lisinopril was increased. She was determined stable for discharge to rehab. On day of discharge she did have one episode of low blood sugar at 6 AM which the patient could feel. Her night time Levemir dosing was decreased by 4 units. Follow-up: After Shui to in 2-4 weeks, Dr. Asif on discharge from the rehab. Medications include aspirin 81 mg. Transition medications include Levemir 18 units at night, metoprolol 25 units twice daily, lisinopril 20 mg daily Patient seen and examined at bedside. Doing well, no complaints currently. She did have light headedness when her BS was low. She states taht occurs some times at home. Vital signs reviewed and stable. General: nontoxic, no distress, appears at stated age Cardiovascular: S1S2 reg, no murmur, positive posterior tibial pulse bilateral, Lungs: Decreased bs bilateral, no rhonchi, no rales , no accessory muscle use Abdominal: soft, nontender to palpation, no guarding, no appreciable organomegaly Ext: no gross muscle atrophy, no edema b/l lower extremities, no contractures Neuro: CN II-XI grossly intact, mild right upper exremity weakness, slight slowed speech. Psych: Alert, oriented, appropriate affect A total of 37 minutes of time were spent preparing this complex discharge summary. Patient was discharged on 09/27/22. This dictation was prepared using [email or web address] voice recognition software. Though every attempt is made to correct errors during dictation some may still exist. Patient Condition at Discharge: Stable Plan - Discharge Summary Discharge Rx Participant: Yes New Discharge Prescriptions: New Aspirin 81 mg PO DAILY tab Insulin Detemir (Levemir) [Levemir] 18 unit SQ HS each Metoprolol Tartrate [Lopressor] 25 mg PO BID tab INSULIN ASPART (NovoLOG) [NovoLOG (formulary)] 5 unit SQ AC-TID each Gabapentin [Neurontin] 300 mg PO BID #24 cap lisinopriL [Zestril] 20 mg PO DAILY #0 tab Continue Colchicine [Colcrys] 0.6 - 1.2 mg PO DIRECTED PRN PRN Reason: gout attack Nitroglycerin Sl Tabs [Nitrostat] 0.4 mg SL Q5M PRN PRN Reason: Chest Pain Insulin Lispro [humaLOG Kwikpen] See Protocol SQ AC-TID Ezetimibe [Zetia] 10 mg PO HS DULoxetine HCL [Cymbalta] 60 mg PO BID Lidocaine 5% Oint [Xylocaine 5% Oint] 1 applic TOPICAL DAILY PRN PRN Reason: Pain Omeprazole [PriLOSEC] 20 mg PO DAILY Donepezil [Aricept] 5 mg PO HS Atorvastatin Calcium [Lipitor] 40 mg PO DAILY Insulin Detemir [Levemir Flexpen] 30 units SQ DAILY Levothyroxine Sodium [Levoxyl] 125 mcg PO DAILY Oxybutynin Chloride [Ditropan XL] 5 mg PO BID Discontinued Metoprolol Tartrate [Lopressor] 25 mg PO BID Gabapentin 300 mg PO BID lisinopriL [Zestril] 5 mg PO DAILY Insulin Detemir [Levemir Flextouch Pen] 22 units SQ HS Meclizine [Antivert] 12.5 - 25 mg PO BID PRN PRN Reason: Vertigo Discharge Medication List Colchicine [Colcrys] 0.6 - 1.2 mg PO DIRECTED PRN 08/11/17 [History] Nitroglycerin Sl Tabs [Nitrostat] 0.4 mg SL Q5M PRN 08/11/17 [History] DULoxetine HCL [Cymbalta] 60 mg PO BID 12/27/19 [History] Ezetimibe [Zetia] 10 mg PO HS 12/27/19 [History] Insulin Lispro [humaLOG Kwikpen] See Protocol SQ AC-TID 12/27/19 [History] Levothyroxine Sodium [Levoxyl] 125 mcg PO DAILY 07/29/20 [History] Lidocaine 5% Oint [Xylocaine 5% Oint] 1 applic TOPICAL DAILY PRN 05/14/21 [History] Atorvastatin Calcium [Lipitor] 40 mg PO DAILY 09/24/22 [History] Donepezil [Aricept] 5 mg PO HS 09/24/22 [History] Insulin Detemir [Levemir Flexpen] 30 units SQ DAILY 09/24/22 [History] Omeprazole [PriLOSEC] 20 mg PO DAILY 09/24/22 [History] Oxybutynin Chloride [Ditropan XL] 5 mg PO BID 09/24/22 [History] Aspirin 81 mg PO DAILY tab 09/27/22 [Rx] Gabapentin [Neurontin] 300 mg PO BID #24 cap 09/27/22 [Rx] INSULIN ASPART (NovoLOG) [NovoLOG (formulary)] 5 unit SQ AC-TID each 09/27/22 [Rx] Insulin Detemir (Levemir) [Levemir] 18 unit SQ HS each 09/27/22 [Rx] Metoprolol Tartrate [Lopressor] 25 mg PO BID tab 09/27/22 [Rx] lisinopriL [Zestril] 20 mg PO DAILY #0 tab 09/27/22 [Rx] Follow up Appointment(s)/Referral(s): Radhames Calles MD [Medical Doctor] - 1 Week Medhat Asif DO [Primary Care Provider] - 1-2 days Activity/Diet/Wound Care/Special Instructions: Activity: as tolerated fall precautions Diet: heart healthy, carb consistent Special Instructions: Blood sugars qAC and HS, please check at 2 am on 09/28/22 Discharge Disposition: TRANSFER TO SNF/ECF
[2022-09-27 11:39] LABS: Glucose,Whole Blood 149 mg/dL (70-110)
== END 2022-09-27 12:28 | DRG 65 ==
LOC: EC 14:03 → 3SCARD 16:25
PROVIDERS: ADMIT Internal Medicine; ATTEND Internal Medicine
DX: I63.81 Other cerebral infarction due to occlusion or stenosis of small artery (principal); E87.1 Hypo-osmolality and hyponatremia; F01.54 Vascular dementia, unspecified severity, with anxiety; I69.351 Hemiplegia and hemiparesis following cerebral infarction affecting right dominant side; G91.2 (Idiopathic) normal pressure hydrocephalus; D69.6 Thrombocytopenia, unspecified; E11.649 Type 2 diabetes mellitus with hypoglycemia without coma; E11.42 Type 2 diabetes mellitus with diabetic polyneuropathy; I50.9 Heart failure, unspecified; I11.0 Hypertensive heart disease with heart failure; G25.81 Restless legs syndrome; G47.419 Narcolepsy without cataplexy; E03.9 Hypothyroidism, unspecified; E11.65 Type 2 diabetes mellitus with hyperglycemia; I34.81 Nonrheumatic mitral (valve) annulus calcification; I34.0 Nonrheumatic mitral (valve) insufficiency; R29.6 Repeated falls; R29.810 Facial weakness; R47.1 Dysarthria and anarthria; E78.5 Hyperlipidemia, unspecified; H35.30 Unspecified macular degeneration; G89.29 Other chronic pain; M54.9 Dorsalgia, unspecified; R29.702 NIHSS score 2; Z79.4 Long term (current) use of insulin; G47.33 Obstructive sleep apnea (adult) (pediatric); I25.10 Atherosclerotic heart disease of native coronary artery without angina pectoris; Z66 Do not resuscitate; G47.30 Sleep apnea, unspecified; K21.9 Gastro-esophageal reflux disease without esophagitis; E83.42 Hypomagnesemia; W01.0XXA Fall on same level from slipping, tripping and stumbling without subsequent striking against object, initial encounter; Z87.820 Personal history of traumatic brain injury; Z95.5 Presence of coronary angioplasty implant and graft; Z95.0 Presence of cardiac pacemaker; Z82.49 Family history of ischemic heart disease and other diseases of the circulatory system; Z79.899 Other long term (current) drug therapy; Z79.890 Hormone replacement therapy; Z88.0 Allergy status to penicillin; I25.2 Old myocardial infarction; Z91.81 History of falling; Z98.2 Presence of cerebrospinal fluid drainage device
CPT/HCPCS: 36415; 70450; 70496; 70498; 71046; 80048; 80053; 80061; 81001; 82550; 83036; 83735; 84443; 84484; 85025; 85610; 85730; 93005; 93306; 94760; 96360; 96361; 99291

== ENCOUNTER 2022-10-04 16:37 | Emergency (ER) | payer MEDICARE, OTHER ==
[2022-10-04 16:47] VITALS: RESP 18; TEMP 97.9
--- NOTE | 2022-10-04 17:11 | ED ---
Fall HPI - General Chief Complaint: Fall Stated Complaint: Fall Time Seen by Provider: 10/04/22 16:45 Source: EMS Mode of arrival: EMS Limitations: physical limitation - History of Present Illness Initial Comments: This patient is 71-year-old woman transferred here from [facility] after she had a fall. The patient does have difficulty with speech related to previous stroke. The fall unwitnessed, does not appear there was loss consciousness. The patient does arrive with cervical collar by EMS. 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 Witnessed: yes, by family Place Fall Occurred: skilled nursing/SNF Loss of Consciousness: none Prolonged Down Time?: no Location: head Severity: mild Context: tripped/slipped Associated Symptoms: denies - Related Data Home Medications Medication Instructions Recorded Confirmed Colchicine [Colcrys] 0.6 - 1.2 mg PO DIRECTED PRN 08/11/17 09/24/22 Nitroglycerin Sl Tabs [Nitrostat] 0.4 mg SL Q5M PRN 08/11/17 09/24/22 DULoxetine HCL [Cymbalta] 60 mg PO BID 12/27/19 09/24/22 Ezetimibe [Zetia] 10 mg PO HS 12/27/19 09/24/22 Insulin Lispro [humaLOG Kwikpen] See Protocol SQ AC-TID 12/27/19 09/24/22 Levothyroxine Sodium [Levoxyl] 125 mcg PO DAILY 07/29/20 09/24/22 Lidocaine 5% Oint [Xylocaine 5% 1 applic TOPICAL DAILY PRN 05/14/21 09/24/22 Oint] Atorvastatin Calcium [Lipitor] 40 mg PO DAILY 09/24/22 09/24/22 Donepezil [Aricept] 5 mg PO HS 09/24/22 09/24/22 Insulin Detemir [Levemir Flexpen] 30 units SQ DAILY 09/24/22 09/24/22 Omeprazole [PriLOSEC] 20 mg PO DAILY 09/24/22 09/24/22 Oxybutynin Chloride [Ditropan XL] 5 mg PO BID 09/24/22 09/24/22 Previous Rx's Medication Instructions Recorded Aspirin 81 mg PO DAILY tab 09/27/22 Gabapentin [Neurontin] 300 mg PO BID #24 cap 09/27/22 INSULIN ASPART (NovoLOG) [NovoLOG 5 unit SQ AC-TID each 09/27/22 (formulary)] Insulin Detemir (Levemir) [Levemir] 18 unit SQ HS each 09/27/22 Metoprolol Tartrate [Lopressor] 25 mg PO BID tab 09/27/22 lisinopriL [Zestril] 20 mg PO DAILY #0 tab 09/27/22 Allergies Allergy/AdvReac Type Severity Reaction Status Date / Time Penicillins Allergy Rash/Hives Verified 09/24/22 15:29 Review of Systems ROS Statement: Those systems with pertinent positive or pertinent negative responses have been documented in the HPI. ROS Other: All systems not noted in ROS Statement are negative. Constitutional: Denies: fever, weakness Eyes: Denies: eye pain, vision change ENT: Denies: epistaxis Respiratory: Denies: cough, dyspnea Cardiovascular: Denies: chest pain, syncope Gastrointestinal: Denies: abdominal pain, vomiting, diarrhea Musculoskeletal: Denies: back pain Skin: Denies: lesions Neurological: Reports: headache. Denies: weakness, numbness, paresthesias, confusion Past Medical History Past Medical History: Coronary Artery Disease (CAD), Chest Pain / Angina, Heart Failure, CVA/TIA, Diabetes Mellitus, Eye Disorder, GERD/Reflux, Hyperlipidemia, Hypertension, Myocardial Infarction (MD), Osteoarthritis (OA), Sleep Apnea/CPAP/BIPAP, Thyroid Disorder Additional Past Medical History / Comment(s): hx hypotension/cardiogenic shock, dizziness, junctional rhythm. Normal pressure hydrocephalus, neuropathy bilateral feet/toes, chronic back pain, RLS, embedded kidney stones, bilateral macular degeneration, IBS, narcolepsy, gout, SEE DR MORALES'S HISTORY AND PHYSICAL FOR CARDIAC HISTORY. PACEMAKER SITE INFECTED Last Myocardial Infarction Date:: 12/27/19 History of Any Multi-Drug Resistant Organisms: None Reported Past Surgical History: Back Surgery, EPS, Heart Catheterization With Stent, Joint Replacement, Orthopedic Surgery, Pacemaker, Tubal Ligation Additional Past Surgical History / Comment(s): 4 cardiac stents, low back surgery, brain shunt, colonoscopy, TOTAL LEFT KNEE. pacemaker removed 07/30/20 due to infection, Pacemaker placed in August 2020, Past Anesthesia/Blood Transfusion Reactions: Motion Sickness, Postoperative Nausea & Vomiting (PONV) Date of Last Stent Placement:: 12/27/19 Type of Cardiac Device: Permanent Pacemaker Device Placement Date:: MAR 2020 Past Psychological History: Anxiety Smoking Status: Never smoker Past Alcohol Use History: Occasional Past Drug Use History: None Reported - Past Family History Father History Unknown: Yes Family Medical History: Congestive Heart Failure (CHF), Hypertension Mother History Unknown: Yes Family Medical History: Congestive Heart Failure (CHF), Hypertension Brother(s) Family Medical History: Cancer, Myocardial Infarction (MD) Additional Family Medical History / Comment(s): One brother had an MD. Another brother had prostate cancer. General Exam Limitations: physical limitation General appearance: alert, in no apparent distress Head exam: Present: normocephalic, other (small contusion with some underlying tenderness) Eye exam: Present: normal appearance, PERRL, EOMI. Absent: scleral icterus, conjunctival injection, nystagmus Neck exam: Present: other (Cervical collar) Respiratory exam: Present: normal lung sounds bilaterally. Absent: respiratory distress, wheezes, rales, rhonchi, stridor, chest wall tenderness, accessory muscle use Cardiovascular Exam: Present: regular rate, normal rhythm, normal heart sounds. Absent: systolic murmur, diastolic murmur, rubs, gallop GI/Abdominal exam: Present: soft. Absent: distended, tenderness, guarding, rebound, rigid, mass Extremities exam: Present: normal inspection, full ROM. Absent: tenderness Back exam: Present: normal inspection. Absent: CVA tenderness (R), CVA tenderness (L) Neurological exam: Present: alert, oriented X3. Absent: motor sensory deficit Skin exam: Present: warm, dry, intact, normal color, abrasion (Abrasion to right wrist) Course Vital Signs 10/04/22 10/04/22 16:40 18:37 Temperature 97.9 F Pulse Rate 69 72 Respiratory 18 18 Rate Blood Pressure 166/78 134/74 O2 Sat by Pulse 98 99 Oximetry Medical Decision Making - Medical Decision Making Patient 71-year-old woman with suspected ground-level fall. There is some tenderness at the site of contusion, CT obtained to rule out skull fracture. I interpreted this as not showing acute bony injury or intracranial hemorrhage. Was pt. sent in by a medical professional or institution (, PA, GROUP CARE WORKER, urgent care, hospital, or skilled nursing...) When possible be specific @ -Patient is sent from the [facility] for evaluation after fall Did you speak to anyone other than the patient for history (EMS, parent, family, police, friend...)? What history was obtained from this source @ -[No] Did you review nursing and triage notes (agree or disagree)? Why? @ -[I reviewed and agree with nursing and triage notes] Were old charts reviewed (outside hosp., previous admission, EMS record, old EKG, old radiological studies, urgent care reports/EKG's, skilled nursing records)? Report findings @ -[No old charts were reviewed] Differential Diagnosis (chest pain, altered mental status, abdominal pain women, abdominal pain men, vaginal bleeding, weakness, fever, dyspnea, syncope, headache, dizziness, GI bleed, back pain, seizure, CVA, palpatations, mental health, musculoskeletal)? @ -Differential Musculoskeletal contusion, fracture, acute intracranial hemorrhage. This is not meant to be in all inclusive list EKG interpreted by me (3pts min.). @ -[ X-rays interpreted by me (1pt min.). @ -[None done] CT interpreted by me (1pt min.). @ -[As above U/S interpreted by me (1pt. min.). @ -[None done] What testing was considered but not performed or refused? (CT, X-rays, U/S, labs)? Why? @ -[None] What meds were considered but not given or refused? Why? @ -[None] Did you discuss the management of the patient with other professionals (professionals i.e. , PA, GROUP CARE WORKER, lab, RT, psych nurse, social services assistant, buyer broker, teacher, security police officer, lining caser)? Give summary @ -[No] Was smoking cessation discussed for >3mins.? @ -[No] Was critical care preformed (if so, how long)? @ -[No] Were there social determinants of health that impacted care today? How? (Homelessness, low income, unemployed, alcoholism, drug addiction, transportation, low edu. Level, literacy, decrease access to med. care, alf, rehab)? @ -[No] Was there de-escalation of care discussed even if they declined (Discuss DNR or withdrawal of care, Hospice)? DNR status @ -[No] What co-morbidities impacted this encounter? (DM, HTN, Smoking, COPD, CAD, Cancer, CVA, ARF, Chemo, Hep., AIDS, mental health diagnosis, sleep apnea, m orbid obesity)? @ -[None] Was patient admitted / discharged? Hospital course, mention meds given and route, prescriptions, significant lab abnormalities, going to OR and other pertinent info. @ -[Patient discharged back to skilled nursing Undiagnosed new problem with uncertain prognosis? @ -[No] Drug Therapy requiring intensive monitoring for toxicity (Heparin, Nitro, Insulin, Cardizem)? @ -[No] Were any procedures done? @ -[No] Diagnosis/symptom? @ -[Acute fall injury Scalp contusion Acute, or Chronic, or Acute on Chronic? @ -[Acute Uncomplicated (without systemic symptoms) or Complicated (systemic symptoms)? @ -[Uncomplicated Side effects of treatment? @ -[No] Exacerbation, Progression, or Severe Exacerbation? @ -[No] Poses a threat to life or bodily function? How? (Chest pain, USA, MD, pneumonia, PE, COPD, DKA, ARF, appy, cholecystitis, CVA, Diverticulitis, Homicidal, Suicidal, threat to staff... and all critical care pts) @ -[No] Disposition Clinical Impression: Fall, Head injury Disposition: HOME SELF-CARE Condition: Good Instructions (If sedation given, give patient instructions): Fall Prevention for Older Adults (ED), Head Injury (ED) Is patient prescribed a controlled substance at d/c from ED?: No Referrals: Medhat Asif DO [Primary Care Provider] - 1-2 days
--- NOTE | 2022-10-04 17:25 | CT ---
EXAMINATION TYPE: CT brain cspine wo con CT DLP: 1491 mGycm, Automated exposure control for dose reduction was used. DATE OF EXAM: 10/04/2022 5:15 PM COMPARISON: 09/16/2022 CLINICAL INDICATION:Female, 71 years old with history of fall injury; fall TECHNIQUE: Brain: Multiple axial CT images of the brain were obtained without IV contrast. Cspine: Axial CT images from the skull base to the inferior aspect of T2 we obtained without intraven ous contrast. Coronal and sagittal reformatted images were also reviewed. FINDINGS: Brain: Extra-axial spaces: No abnormal extra-axial fluid collections. Ventricular system: Right posterior approach ventriculostomy catheter tip near midline in the right l ateral ventricle. Cerebral parenchyma: Remote injuries to the right frontal lobe and left basal ganglia. No acute intra parenchymal hemorrhage or mass effect. The francisco-white junction is well differentiated. Scattered hyp oattenuating areas are seen within the white matter. Cerebellum: Unremarkable. Mass effect: No evidence of midline shift. Intracranial vasculature: Atherosclerotic calcifications of the intracranial vessels. Soft tissues: Normal. Calvarium/osseous structures: No depressed skull fracture. Paranasal sinuses and mastoid air cells: Mild scattered paranasal sinus disease. Visualized orbits: Bilateral aphakia Cervical spine: Fracture: None. Osseous structures: Multilevel degenerative disc disease changes with endplate spurring and disc oste ophyte complex's. Vertebral alignment: Within normal limits. Spinal canal/Neural Foramina: Disc osteophyte complexes at C4-C5 to C6-C7 with at least mild spinal c anal stenosis. Facet joint uncovertebral joint arthropathy scattered throughout the cervical spine wi th varying degrees of neural foraminal stenosis. Neck soft tissues: Prevertebral soft tissues are within normal limits. Atherosclerosis of the arteria l vasculature. Cardiac conduction leads partially visualized. Other: The airway is patent. The lung apices are clear. IMPRESSION: 1. No acute intracranial process. 2. Remote injuries to the right frontal lobe and left basal ganglia. 3. Right posterior approach ventriculostomy catheter in stable position. 4. Mild multilevel disc degeneration changes.
[2022-10-04 18:38] VITALS: BP 134/74; PULSE 72
== END 2022-10-04 18:38 | disposition home or self-care (01) ==
LOC: EC 16:37
DX: S00.03XA Contusion of scalp, initial encounter (principal); E11.9 Type 2 diabetes mellitus without complications; E78.5 Hyperlipidemia, unspecified; I25.10 Atherosclerotic heart disease of native coronary artery without angina pectoris; I25.2 Old myocardial infarction; I11.0 Hypertensive heart disease with heart failure; I50.9 Heart failure, unspecified; K21.9 Gastro-esophageal reflux disease without esophagitis; M19.90 Unspecified osteoarthritis, unspecified site; E07.9 Disorder of thyroid, unspecified; F41.9 Anxiety disorder, unspecified; Z88.0 Allergy status to penicillin; Z79.4 Long term (current) use of insulin; Z79.890 Hormone replacement therapy; Z79.899 Other long term (current) drug therapy; W01.0XXA Fall on same level from slipping, tripping and stumbling without subsequent striking against object, initial encounter
CPT/HCPCS: 70450; 72125; 99284

== ENCOUNTER 2023-05-28 05:41 | Day surgery (SDC) | payer MEDICARE, OTHER ==
[2023-05-26 10:17] VITALS: BMI 27.2
[2023-05-28] MEDS ORDERED: HEPARIN SODIUM,PORCINE (1 ML) 2,500 UNIT in SODIUM CHLORIDE 0.9% 250 ML IRRIGATION PRN (05:55)
[2023-05-28] MEDS ORDERED: ALPRAZolam 0.25 MG TAB PO PRN (05:55)
[2023-05-28] MEDS ORDERED: SODIUM CHLORIDE 0.9% 1,000 ML in EMPTY BAG 1 BAG IV SCH (05:55)
[2023-05-28] MEDS ORDERED: NITROGLYCERIN SL TABS 0.4 MG TAB SUBLINGUAL PRN (05:55)
[2023-05-28] MEDS ORDERED: HEPARIN SODIUM,PORCINE 10,000 UNIT in SODIUM CHLORIDE 0.9% 1,000 ML IRRIGATION PRN (05:55)
[2023-05-28] MEDS ORDERED: ALPRAZolam 0.5 MG TAB PO PRN (05:55)
[2023-05-28] MEDS: SODIUM CHLORIDE 0.9% 1,000 ML IV ONE (06:11)
[2023-05-28 06:39] LABS: Glucose,Whole Blood 135 mg/dL (70-110)
[2023-05-28 06:42] LABS: Anisocytosis Slight; Basophils % (A) 0 %; Eosinophils % (A) 0 %; HCT 38.7 % (34.0-46.0); HGB 12.4 gm/dL (11.4-16.0); Lymphocytes # (A) 2.1 k/uL (1.0-4.8); Lymphocytes % (A) 26 %; MCH 26.8 pg (25.0-35.0); MCV 83.6 fL (80.0-100.0); Mean Platelet Volume 9.3; Monocytes # (A) 0.5 k/uL (0-1.0); Monocytes % (A) 6 %; Neutrophils # (A) 5.3 k/uL (1.3-7.7); Neutrophils % (A) 66 %; Platelet Count 154 k/uL (150-450); RBC 4.64 m/uL (3.80-5.40); RDW 16.4 % (11.5-15.5)
[2023-05-28 06:56] LABS: African American GFR (CKD) >90 (>60 ml/min/1.73 sqM); Anion Gap 6 mmol/L; Blood Urea Nitrogen 18 mg/dL (7-17); Carbon Dioxide 29 mmol/L (22-30); Chloride 107 mmol/L (98-107); Glucose 143 mg/dL (74-99); Non-African American GFR(CKD) 85 (>60 ml/min/1.73 sqM); Potassium 3.7 mmol/L (3.5-5.1); Sodium 142 mmol/L (137-145)
[2023-05-28] MEDS ORDERED: ASPIRIN 325 MG TAB PO ONE (07:00)
[2023-05-28 07:14] VITALS: RESP 16; TEMP 97.9
[2023-05-28] MEDS ORDERED: LIDOCAINE 1% INJ 10MG/ML (20 ML MDV) ONE (07:20)
[2023-05-28] MEDS ORDERED: VERAPAMIL 2.5 MG/ML 2 ML AMP ONE (07:20)
[2023-05-28] MEDS ORDERED: fentaNYL (PF) 50 MCG/ML 2 ML AMP ONE (07:33)
[2023-05-28] MEDS ORDERED: HEPARIN SODIUM 1,000 UN/ML (10ML VL) ONE (07:33)
[2023-05-28] MEDS: fentaNYL (PF) 50 MCG/ML 2 ML AMP IVP ONE (07:46)
[2023-05-28] MEDS: LIDOCAINE 1% INJ 10MG/ML (20 ML MDV) SQ ONE ×2 (07:47→07:49)
[2023-05-28] MEDS: VERAPAMIL SYRINGE (5 MG/10 ML) INTRAARTER ONE (07:50)
[2023-05-28] MEDS: HEPARIN SODIUM 1,000 UN/ML (10ML VL) IV ONE (07:56)
[2023-05-28] MEDS: IOPAMIDOL-370 100ML BTL INJ ONE (08:04)
[2023-05-28] MEDS ORDERED: RX INFO: IV CONTRAST WAS GIVEN 1 EACH MISC MISCELLANE PRN (08:21)
[2023-05-28] MEDS: SODIUM CHLORIDE 0.9% 1,000 ML IV SCH (08:30)
--- NOTE | 2023-05-28 08:30 | P.CARDCATH ---
Date of Procedure: 05/28/23 Description of Procedure: Cardiac Catheterization: The patient is a 72-year-old female with known history of multivessel stenting done at [facility], stenting of the mid right coronary artery in 2020 at [facility] who has been complaining of progressive fatigue and had an abnormal MPI. Recommendations were made regarding cardiac catheterization, the risks and the complications were discussed with the patient who is in full understanding and agreement. Procedure Description: Patient was brought to director labor standards in fasting semi-sedated state after receiving Fentanyl and Benadryl achieiving moderate conscious sedated state. Using Xylocaine Anesthesia and modified Seldinger technique, a 6-Iraqi sheath was introduced in the right radial artery . Subsequently, selective coronary angiography was performed using a 5-Iraqi 3.5 bend Vivi catheter. Multiple views of the coronary artery including hemiaxial views were obtained. The 6 Iraqi pigtail catheter was used to cross the aortic valve and LVEDP was calculated. Following that, catheter and sheath were removed. Hemostasis was obtained with deployment of vascular band . There was no immediate complication. Patient was returned to room in stable condition. Of note, the patient received a total of 4500 units of intravenous heparin as well as intra-arterial verapamil. Findings: Left main: This is a large size vessel, bifurcating into LAD and left circumflex, left main has 10% plaque distally with no high-grade stenosis LAD: This is a large size vessel, reaching to the apex with a wraparound apex segment. Giving rise to a large diagonal branch proximally. The LAD proximally has 20% plaque. The stented segment in the LAD and diagonal branch are patent. After the stent of the LAD there is a 99% stenosis in the mid LAD. The vessel beyond that has no high-grade stenosis. Left circumflex: This is a large nondominant vessel giving rise to 2 obtuse marginal branch. The proximal left circumflex has a 90% stenosis. There is another 70% plaque prior to the bifurcation of the first obtuse marginal branch. The first obtuse marginal branch has a 90% stenosis in the midsegment. There is another plaque in the circumflex after the first obtuse marginal branch takeoff of about 60 to 70%. RCA: This is a large dominant vessel, bifurcating into PDA and PLV. The stented segment in the mid and proximal RCA are patent with 40 to 50% in-stent restenosis. The right PDA is totally occluded at the stented segment. There is collaterals from the left coronary system toward the right PDA. Left Ventriculogram: Not performed Hemodynamics: There was no gradient across the aortic valve, LVEDP was 5-10 mmHg Conclusion: 1. Severe stenosis in the mid LAD 2. Severe stenosis in the proximal left circumflex and OM1 3. Totally occluded right PDA 4. Normal LVEDP Recommendations: In view of the significant progression of disease, triple-vessel disease and diabetes I have recommended to proceed with evaluation for CABG. The findings and the recommendations were discussed with the patient and the family and they were in full understanding and agreement. Duration of sedation is 17 minutes.
[2023-05-28] MEDS ORDERED: ATORVASTATIN 40 MG TAB PO SCH (09:00)
[2023-05-28] MEDS ORDERED: OXYBUTYNIN XL 5 MG TAB.ER.24 PO SCH (09:00)
[2023-05-28] MEDS ORDERED: DULoxetine HCL 60 MG CAPSULE.DR PO SCH (09:00)
[2023-05-28] MEDS ORDERED: NON FORMULARY DRUG (Insulin Detemir [Levemir Flexpen] 100 UNIT/ML Insuln.Pen) SQ SCH (09:00)
[2023-05-28] MEDS ORDERED: LEVOTHYROXINE 125 MCG TAB PO SCH (09:00)
[2023-05-28] MEDS ORDERED: NON FORMULARY DRUG (Omeprazole 20 MG Capsule.Dr) PO SCH (09:00)
[2023-05-28] MEDS ORDERED: GABAPENTIN 300 MG CAP PO SCH (09:00)
--- NOTE | 2023-05-28 10:22 | CT ---
EXAMINATION TYPE: CT chest wo con DATE OF EXAM: 05/28/2023 COMPARISON: None HISTORY: Pre op cardiac sx evaluate aorta CT DLP: 566 mGycm, Automated exposure control for dose reduction was used. CONTRAST: Performed injected with 0 mL of . TECHNIQUE: Axial images were obtained at 5 mm thick sections. Reconstructed images are reviewed on [employer] computer in the coronal plane. FINDINGS: Portion of the thyroid visualized is normal. No suspicious lung nodules or focal infiltrates are present. Tracheobronchial tree appears normal No enlarged mediastinal or hilar adenopathy is evident. The ascending aorta diameter at the level o f the main pulmonary artery is 3.1 cm. The main pulmonary artery diameter at the bifurcation is 2.7 cm. Scattered small vascular calcifications are within the ascending aorta thoracic aorta and descend ing thoracic aorta. Coronary artery calcification is present. Limited CT sections are obtained through the upper abdomen. Abdomen is essentially unremarkable. IMPRESSION: 1. No suspicious acute changes thoracic aorta. Scattered small atheromatous calcified plaques are pre sent. 2. No acute pulmonary process.
--- NOTE | 2023-05-28 10:54 | CA ---
Transthoracic Echo Report Name: Luciana Granados Age: 72 Gender: F : 1950 Exam Date: 05/28/2023 09:55 Exam Location: [facility] Ht (in): 68 Wt (lb): 188 Ordering Physician: Bakari Constantino Attending/Referring Phys: Dougie GARCIA Track Maintainer Edna Smith, BONG Procedure CPT: Indications: evaluate valves and EF pore op CABG Cardiac Hx: stents, stroke Technical Quality: Good Contrast 1: Total Dose (mL): Contrast 2: Total Dose (mL): MEASUREMENTS (Male / Female) Normal Values 2D ECHO LV Diastolic Diameter PLAX 4.8 cm 4.2 - 5.9 / 3.9 - 5.3 cm LV Systolic Diameter PLAX 4.3 cm IVS Diastolic Thickness 1.1 cm 0.6 - 1.0 / 0.6 - 0.9 cm LVPW Diastolic Thickness 1.0 cm 0.6 - 1.0 / 0.6 - 0.9 cm LV Relative Wall Thickness 0.4 RV Internal Dim ED PLAX 2.8 cm LVOT Diameter 2.1 cm LA Systolic Diameter LX 3.0 cm 3.0 - 4.0 / 2.7 - 3.8 cm LV Diastolic Volume MOD BP 53.1 cm??? 67 - 155 / 56 - 104 cm??? LV Systolic Volume MOD BP 13.2 cm??? - / 19 - 49 cm??? LV Ejection Fraction MOD BP 75.2 % >= 55 % LV Cardiac Index MOD BP 1328.3 cm???/min???m??? LV Diastolic Volume MOD 4C 60.4 cm??? LV Systolic Volume MOD 4C 14.6 cm??? LV Ejection Fraction MOD 4C 75.9 % LV Cardiac Index MOD 4C 1525.6 cm???/min???m??? LV Diastolic Length 4C 7.5 cm LV Systolic Length 4C 5.9 cm LV Diastolic Volume MOD 2C 49.0 cm??? LV Systolic Volume MOD 2C 11.1 cm??? LV Ejection Fraction MOD 2C 77.4 % LV Cardiac Index MOD 2C 1262.7 cm???/min???m??? LV Diastolic Length 2C 7.6 cm LV Systolic Length 2C 6.6 cm LA Volume 57.9 cm??? 18 - 58 / 22 - 52 cm??? LA Volume Index 28.3 cm???/m??? 16 - 28 cm???/m??? M-MODE Aortic Root Diameter MM 3.0 cm MV E Point Septal Separation 0.6 cm AV Cusp Separation MM 1.6 cm DOPPLER AV Peak Velocity 198.5 cm/s AV Peak Gradient 15.8 mmHg AV Mean Velocity 141.2 cm/s AV Mean Gradient 8.9 mmHg AV Velocity Time Integral 49.5 cm LVOT Peak Velocity 97.7 cm/s LVOT Peak Gradient 3.8 mmHg AV Area Cont Eq pk 1.8 cm??? MV Area PHT 1.9 cm??? Mitral E Point Velocity 107.9 cm/s Mitral A Point Velocity 137.5 cm/s Mitral E to A Ratio 0.8 MV Deceleration Time 397.8 ms TR Peak Velocity 244.0 cm/s TR Peak Gradient 23.8 mmHg Right Ventricular Systolic Press 28.8 mmHg FINDINGS Left Ventricle Left ventricular ejection fraction is estimated at 60-65 %. Left ventricular cavity size normal. Mildly increased septal wall thickness. Mildly increased posterior wall thickness. No obvious regional wall motion abnormalities. Right Ventricle Normal right ventricular size. Right ventricular systolic pressure within normal limits. Right ventricular systolic pressure estimated at 28 mm hg. Right Atrium Normal right atrial size. Left Atrium Mildly increased left atrial volume. Mitral Valve Mitral valve thickened. Mild mitral annular calcification. No mitral stenosis or prolapse. Trace mitral regurgitation. Aortic Valve Trileaflet aortic valve. Aortic valve sclerosis. Mild aortic stenosis with a peak gradient of 16 mmHg and a mean gradient of 9 mmHg. No regurgitation. AOV area around 2.2 cm2 Tricuspid Valve Structurally normal tricuspid valve. Mild tricuspid regurgitation. Pulmonic Valve Pulmonic valve not well visualized. No pulmonic regurgitation. Pericardium No pericardial effusion. Aorta Normal size aortic root and proximal ascending aorta. CONCLUSIONS Normal LV systolic function Mild aortic stenosis Pacemaker leads are noted in the right side Previewed by: Dr. Tyler Sparks MD (Electronically Signed) Final Date: 28 May 2023 10:53
[2023-05-28] MEDS: lisinopriL 20 MG TAB PO SCH (11:15)
[2023-05-28] MEDS: METOPROLOL TARTRATE 25 MG TAB PO SCH (11:15)
--- NOTE | 2023-05-28 11:52 | P.GSCN ---
History of Present Illness Consult date: 05/28/23 Reason for Consult: Multivessel coronary artery disease Requesting physician: Kimberlyn Ruiz History of present illness: This is a 72-year-old female patient who follows on an outpatient basis for primary care service with Dr. Medhat Asif and with Dr. Ruiz for her cardiology care. 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 Recently, the patient has had complaints of feeling fatigued, having episodes of dizziness, palpitations and has had problems with walking. She denies any recent fever, chills, nausea, vomiting, chest pain/p ressure, shortness of breath, constipation, diarrhea, visual disturbances, presyncope or syncope. Subsequently, she followed up with Dr. Ruiz [facility], and due to her history of coronary artery disease and her above mentioned symptoms she underwent a MPI which showed evidence of stress- induced ischemia involving the inferior wall. Subsequently, due to the patient's findings on her stress test a cardiac catheterization was recommended which was completed today and demonstrated a 10% stenosis to her left main coronary artery distally with no high-grade stenosis, a 99% stenosis to her mid left anterior descending coronary artery after the stent of the LAD, a 90% stenosis to her proximal left circumflex coronary artery with another 70% stenosis prior to the bifurcation of the first obtuse marginal branch, a 90% stenosis to her mid segment of her first obtuse marginal coronary artery, a 60 to 70% stenosis to her circumflex coronary artery after the first obtuse margina l coronary artery branch takeoff, and a 40 to 50% in-stent stenosis to her proximal and mid right coronary artery, and a totally occluded PDA at the stented segment. The heart catheterization also demonstrated collaterals from the left coronary system to the falcon to the right PDA. Due to the findings on the cardiac catheterization a consult was placed to Dr. Tab Ho from cardiothoracic surgery for further evaluation and treatment recommendations including myocardial vascularization surgery. Review of Systems A 14 point review of systems was completed and was negative except as mentioned in the HPI. Past Medical History Past Medical History: Coronary Artery Disease (CAD), Chest Pain / Angina, Heart Failure, CVA/TIA, Dementia, Diabetes Mellitus, GERD/Reflux, Hyperlipidemia, Hypertension, Memory Impairment, Myocardial Infarction (KS), Osteoarthritis (OA), Sleep Apnea/CPAP/BIPAP, Thyroid Disorder Additional Past Medical History / Comment(s): Hx TIA with residual poor strength on right side and slow speech. Occasional dizziness. Normal pressure hydrocephalus - has shunt. Neuropathy bilateral feet/toes, chronic back pain, IBS, narcolepsy, gout. Last Myocardial Infarction Date:: 12/27/19 History of Any Multi-Drug Resistant Organisms: None Reported Past Surgical History: Back Surgery, EPS, Heart Catheterization With Stent, Joint Replacement, Orthopedic Surgery, Pacemaker, Tubal Ligation Additional Past Surgical History / Comment(s): 4 cardiac stents, low back surgery, brain shunt, colonoscopy, total left knee replacement, permanent pacemaker placement, got infected and removed and then replaced. Past Anesthesia/Blood Transfusion Reactions: Motion Sickness, Postoperative Nausea & Vomiting (PONV) Date of Last Stent Placement:: 12/27/19 Type of Cardiac Device: Permanent Pacemaker Device Placement Date:: MAR 2020 Past Psychological History: Anxiety Smoking Status: Never smoker Past Alcohol Use History: None Reported Past Drug Use History: None Reported - Past Family History Father History Unknown: Yes Family Medical History: Congestive Heart Failure (CHF), Hypertension, Myocardial Infarction (KS) Mother History Unknown: Yes Family Medical History: Congestive Heart Failure (CHF), Hypertension, Myocardial Infarction (KS) Brother(s) Family Medical History: Cancer, Myocardial Infarction (KS) Additional Family Medical History / Comment(s): One brother had an [place]. Another brother had prostate cancer. Medications and Allergies Home Medications Medication Instructions Recorded Confirmed Type Nitroglycerin Sl Tabs [Nitrostat] 0.4 mg SL Q5M PRN 08/11/17 05/28/23 History DULoxetine HCL [Cymbalta] 60 mg PO BID 12/27/19 05/28/23 History Ezetimibe [Zetia] 10 mg PO HS 12/27/19 05/28/23 History Levothyroxine Sodium [Levoxyl] 125 mcg PO DAILY 07/29/20 05/28/23 History Atorvastatin Calcium [Lipitor] 40 mg PO DAILY 09/24/22 05/28/23 History Donepezil [Aricept] 5 mg PO HS 09/24/22 05/28/23 History Insulin Detemir [Levemir Flexpen] 50 units SQ QAM 09/24/22 05/28/23 History Omeprazole [PriLOSEC] 20 mg PO DAILY 09/24/22 05/28/23 History oxyBUTYnin chloride [Ditropan XL] 5 mg PO BID 09/24/22 05/28/23 History Aspirin 81 mg PO DAILY tab 09/27/22 05/28/23 Rx Gabapentin [Neurontin] 300 mg PO BID #24 cap 09/27/22 05/28/23 Rx Metoprolol Tartrate [Lopressor] 25 mg PO BID tab 09/27/22 05/28/23 Rx lisinopriL [Zestril] 20 mg PO DAILY #0 tab 09/27/22 05/28/23 Rx Allergies Allergy/AdvReac Type Severity Reaction Status Date / Time Penicillins Allergy Rash/Hives Verified 05/28/23 06:17 Surgical - Exam Vital Signs Temp Pulse Resp BP Pulse Ox 97.9 F 69 16 210/95 99 05/28/23 06:40 05/28/23 06:40 05/28/23 06:40 05/28/23 06:40 05/28/23 06:40 - General well developed, well nourished, no distress, no pain, chronically ill, obese - Eyes PERRL, normal ocular movement, no pale, no icteric - ENT normal pinna, normal nares, normal mucosa, no hearing loss, no congestion, poor usp - Neck Neck is supple, no lymphadenopathy. no masses, no bruits, trachea midline, no venous distension - Respiratory Lung sounds essentially clear throughout, few scattered crackles to her left lower lobe. No wheezes or rhonchi. Respirations are symmetrical and nonlabored. - Cardiovascular Regular rhythm and rate. S1 and S2 present, negative for S3 or gallop. Soft sy stolic murmur heard best to her left sternal border. No edema present. Peripheral pulses palpable. - Abdomen Abdomen is soft, nontender and nondistended. Active bowel sounds present all 4 abdominal quadrants. No guarding or rigidity. No organomegaly appreciated. - Genitourinary Deferred - Rectum Deferred - Integumentary Skin is warm and dry. No clubbing or cyanosis is present. no rash, no growths, no abnormal pigmentation - Neurologic Some chronic residual right-sided weakness from previous stroke. memory loss - Musculoskeletal Moves all 4 extremities. Chronic medical debility, ambulates with walker. - Psychiatric Disoriented to time and place. oriented to person, no memory intact Results - Labs 05/28/23 06:20 05/28/23 13:43 Abnormal Lab Results - Last 24 Hours (Table) 05/28/23 05/28/23 05/28/23 Range/Units 06:20 06:20 06:28 RDW 16.4 H (11.5-15.5) % BUN 18 H (7-17) mg/dL Glucose 143 H (74-99) mg/dL POC Glucose (mg/dL) 135 H (70-110) mg/dL Diabetes panel 05/28/23 Range/Units 06:20 Sodium 142 (137-145) mmol/L Potassium 3.7 (3.5-5.1) mmol/L Chloride 107 (98-107) mmol/L Carbon Dioxide 29 (22-30) mmol/L BUN 18 H (7-17) mg/dL Creatinine 0.71 (0.52-1.04) mg/dL Glucose 143 H (74-99) mg/dL Calcium 9.0 (8.4-10.2) mg/dL Calcium panel 05/28/23 Range/Units 06:20 Calcium 9.0 (8.4-10.2) mg/dL Pituitary panel 05/28/23 Range/Units 06:20 Sodium 142 (137-145) mmol/L Potassium 3.7 (3.5-5.1) mmol/L Chloride 107 (98-107) mmol/L Carbon Dioxide 29 (22-30) mmol/L BUN 18 H (7-17) mg/dL Creatinine 0.71 (0.52-1.04) mg/dL Glucose 143 H (74-99) mg/dL Calcium 9.0 (8.4-10.2) mg/dL Adrenal panel 05/28/23 Range/Units 06:20 Sodium 142 (137-145) mmol/L Potassium 3.7 (3.5-5.1) mmol/L Chloride 107 (98-107) mmol/L Carbon Dioxide 29 (22-30) mmol/L BUN 18 H (7-17) mg/dL Creatinine 0.71 (0.52-1.04) mg/dL Glucose 143 H (74-99) mg/dL Calcium 9.0 (8.4-10.2) mg/dL Assessment and Plan Assessment: Multivessel coronary artery disease Hypertension Dyslipidemia History of subacute right-sided CVA with minimal right-sided residual deficits Coronary artery disease with previous PCI History of myocardial infarction in November 2019 Ischemic cardiomyopathy History of sick sinus syndrome status post permanent pacemaker placement Diabetes mellitus type 2, insulin-dependent Hypothyroidism Dementia Medical debility, frequent falls at home Obstructive sleep apnea without home CPAP use Osteoarthritis Lifetime non-smoker Plan: The patient was seen and examined with Dr. Tab Ho from cardiothoracic surgery at her bedside at her bedside in the extended stay unit. The patient's is present at her bedside. The findings on the cardiac catheterization was discussed by Dr. Ho with the patient and her . The usual course of myocardial vascularization surgery was discussed, risks and benefits of surgery were discussed. Preoperative teaching and preoperative testing has been initiated. Dr. Ho discussed with the patient and the patient's that she may be a high risk surgical candidate due to her medical debility and her o ther comorbidities. Once her preoperative testing has been completed an STS risk or will be calculated and discussed with the patient. A 5 m walk test was completed with the patient, the patient tolerated the walk well although reports she had an episode of dizziness and feeling unsteady. Time 1: 4.32 seconds, time 2: 5.07 seconds, time 3: 4.67 seconds. The patient did do the 5 m walk test using a walker for assistance. Continue to maximize medical management with aspirin, statin and beta-anmol. Medical management and other comorbidities per primary care service and cardiology service. More recommendations to follow based on patient's clinical course and as her preoperative testing has been obtained. Thank you Dr. Ruiz for this consult and we look forward to working with you in the care of this patient. I have personally seen and examined the patient, performed the documentation and the assessment and plan as written. Number of minutes spent on the visit: 30. MANUEL Taylor Attending Addendum: The patient is a 72 year-old F with a hx of CAD s/p multiple PCI in the past who underwent coronary angio today which revealed progression of her 3v CAD. She is demented at baseline and has a hx of CVA with residual weakness and requires a walker at baseline. Her functional status is very poor and she has limited conduit. Will discuss medical vs PCI options with Dr. Ruiz. She is not a good surgical candidate for CABG. I spent 45 minutes reviewing the data with the patient and the care team regarding the plan of care. Time with Patient: Greater than 30
[2023-05-28 13:52] VITALS: BP 154/76; PULSE 67
[2023-05-28 14:06] LABS: Amorphous Sediment,Urine Rare /hpf; Appearance,Urine Cloudy (Clear); Bilirubin,Urine Negative (Negative); Blood,Urine Trace (Negative); Color,Urine Colorless; Glucose,Urine (UA) 4+ (Negative); Ketones,Urine Negative (Negative); Leukocyte Esterase,Urine Trace (Negative); Mucus,Urine Rare /hpf; Nitrite,Urine Negative (Negative); Protein,Urine Trace (Negative); RBC,Urine 12 /hpf (0-5); Specific Gravity,Urine 1.032 (1.001-1.035); Squamous Epithelial Cell,Urine 1 /hpf (0-4); Urobilinogen,Urine <2.0 mg/dL (<2.0); WBC,Urine 4 /hpf (0-5)
--- NOTE | 2023-05-28 14:08 | US ---
EXAMINATION TYPE: US arterial LE single level DATE OF EXAM: 05/28/2023 1:23 PM CLINICAL INDICATION: Female, 72 years old with history of Ankle Brachial Index (FLORA) ; open heart History of: Smoker: n Hypertension: y Diabetic: y Hyperlipidemia: y TIA/CVA: y Previous Vascular Surgery: heart stents CAD: n HI: n Vascular Ulcers: n Claudication: n Gangrene: n Doppler Waveforms: Right: Multiphasic Left: Multiphasic Right Brachial Pressure: BP deferred due to radial approach today Left Brachial Pressure: 211 Ankle-Brachial Indices: Right: Could not occlude Left: Could not occlude IMPRESSION: Limited exam could not occlude the vessels to perform ankle brachial index.
[2023-05-28 14:14] LABS: INR 1.4 (<1.2); Partial Thromboplastin Time 34.1 sec (22.0-30.0); Prothrombin Time 14.1 sec (10.0-12.5)
[2023-05-28 14:16] LABS: ALT 15 U/L (4-34); AST 20 U/L (14-36); African American GFR (CKD) >90 (>60 ml/min/1.73 sqM); Albumin 3.8 g/dL (3.5-5.0); Alkaline Phosphatase 125 U/L (38-126); Anion Gap 6 mmol/L; Blood Urea Nitrogen 15 mg/dL (7-17); Calcium 8.9 mg/dL (8.4-10.2); Carbon Dioxide 29 mmol/L (22-30); Chloride 108 mmol/L (98-107); Glucose 166 mg/dL (74-99); Magnesium 1.4 mg/dL (1.6-2.3); Non-African American GFR(CKD) 87 (>60 ml/min/1.73 sqM); Potassium 3.9 mmol/L (3.5-5.1); Sodium 143 mmol/L (137-145); Total Bilirubin 0.4 mg/dL (0.2-1.3); Total Protein 6.3 g/dL (6.3-8.2)
--- NOTE | 2023-05-28 14:17 | XR ---
EXAMINATION TYPE: XR chest 2V DATE OF EXAM: 05/28/2023 1:10 PM CLINICAL INDICATION:Female, 72 years old with history of PreOp Cardiac Surgery; [facility] COMPARISON: Chest radiographs from 09/24/2022 TECHNIQUE: XR chest 2V Frontal and lateral views of the chest. FINDINGS: Lungs/Pleura: There is no evidence of pleural effusion, focal consolidation, or pneumothorax. Pulmonary vascularity: Unremarkable. Heart/mediastinum: Cardiomediastinal silhouette is unremarkable. Two lead cardiac conduction device o verlying the right hemithorax with lead tips projecting over the right ventricle and right atrium. Musculoskeletal: No acute osseous pathology. Nerve stimulator leads project over the spine. Other findings: None IMPRESSION: No acute cardiopulmonary disease/process.
[2023-05-28 19:05] LABS: Chol/HDL Ratio 3.73 Ratio; LDL Cholesterol,Calculated 79.7 mg/dL (0.0-131.0)
[2023-05-28 19:08] LABS: Hepatitis A Antibody IgM Nonreactive; Hepatitis B Core IgM Nonreactive; Hepatitis B Surface Antigen Nonreactive; Hepatitis C IgG Antibody Nonreactive
[2023-05-28] MEDS ORDERED: EZETIMIBE 10 MG TAB PO SCH (21:00)
[2023-05-28] MEDS ORDERED: DONEPEZIL 5 MG TAB PO SCH (21:00)
--- NOTE | 2023-05-28 21:44 | US ---
EXAMINATION TYPE: US carotid duplex BILAT DATE OF EXAM: 05/28/2023 COMPARISON: NONE CLINICAL INDICATION: Female, 72 years old with history of Pre-Op Cardiac Surgery; h/o stroke, pre ope n heart TECHNIQUE: Carotid duplex ultrasound examination. Indirect Doppler criteria was utilized. FINDINGS: EXAM MEASUREMENTS: RIGHT: Peak Systolic Velocity (PSV) cm/sec ----- Right CCA: 58.8 ----- Right ICA: 50.9 ----- Right ECA: 47.7 ICA/CCA ratio: 0.9 RIGHT: End Diastole cm/sec ----- Right CCA: 8.3 ----- Right ICA: 15.0 ----- Right ECA: 0.0 LEFT: Peak Systolic Velocity (PSV) cm/sec ----- Left CCA: 55.5 ----- Left ICA: 100.0 ----- Left ECA: 76.7 ICA/CCA ratio: 1.8 LEFT: End Diastole cm/sec ----- Left CCA: 8.7 ----- Left ICA: 17.7 ----- Left ECA: 0.0 VERTEBRALS (direction of flow): Right Vertebral: Antegrade Left Vertebral: Antegrade Rhythm: Normal DOZER OPERATOR NOTES: Mild heterogeneous plaque seen at bilateral bulbs with no significant stenosis see n IMPRESSION: No hemodynamically significant internal carotid artery stenosis on either side. Criteria for Assigning % of Stenosis / Diameter reduction (Estimation based on the indirect measurements of the internal carotid artery velocities (ICA PSV). 1. Normal (no stenosis)=ICA PSV < 125 cm/s: ratio < 2.0: ICA EDV<40 cm/s. 2. Less than 50% stenosis=ICA PSV < 125 cm/s: ratio < 2.0: ICA EDV<40 cm/s. 3. 50 to 69% stenosis=ICA PSV of 125 to 230 cm/s: ration 2.0 ? 4.0: ICA EDV 40-100 cm/s. 4. Greater than 70% stenosis to near occlusion= ICA PSV > 230 cm/s: ratio > 4.0: ICA EDV > 100 cm/s. 5. Near occlusion= ICA PSV velocities may be low or undetectable: variable ratio and ICA EDV. 6. Total occlusion=unable to detect flow.
[2023-05-29] MEDS ORDERED: ASPIRIN 81 MG PO SCH (09:00)
--- NOTE | 2023-05-29 21:22 | US ---
EXAMINATION TYPE: US vein mapping BILAT DATE OF EXAM: 05/28/2023 12:54 PM COMPARISON: NONE CLINICAL INDICATION: Female, 72 years old with history of PreOp Cardiac Surgery; open heart SIDE PERFORMED: Bilateral TECHNIQUE: Lower extremity saphenous vein is examined and measured utilizing real time linear array sonography. DUPLEX FINDINGS: Greater Saphenous: Color flow seen in bilateral groin with no flow noted on left gsv at knee and bel ow knee - internal echoes Measurements in mm: Right Greater Saphenous: Groin: 2.9 x 3.0 mm High Thigh: 1.1 x 1.0 mm Mid Thigh: too small to see Above Knee: too small to see Knee: too small too see Below Knee: 2.8 x 3.1 mm Mid Calf: 2.9 x 2.8 mm At Ankle: 2.5 x 3.1 mm Left Greater Saphenous: Groin: 11.5 x 6.5 mm High Thigh: too small to see Mid Thigh: too small to see Above Knee: 2.5 x 2.8 mm Knee: internal echoes within that did not compress Below Knee: internal echoes within that did not compress Mid Calf: 1.4 x 1.4 mm At Ankle: 2.2 x 2.6 mm IMPRESSION: 1. Bilateral GSV measurements listed above. 2. Performing surgeon to determine viability as conduit.
--- NOTE | 2023-05-29 21:23 | US ---
EXAMINATION TYPE: Pre-Operative Non-Invasive Evaluation of the hand for Potential Radial Artery Geronimo [email or web address], Measurements only DATE OF EXAM: 05/28/2023 12:54 PM CLINICAL INDICATION: Female, 72 years old with history of Pre-Op Cardiac Surgery; open heart SIDE PERFORMED: Right TECHNIQUE: Radial artery is measured utilizing real time linear array sonography. Dominant hand: Right Duplex Findings: Radial Artery: Color flow seen Measurements in mm, transverse view: Left Radial: Proximal: 2.6 x 2.7 mm Mid: 2.0 x 2.4 mm Distal: 1.7 x 2.2 mm IMPRESSION: 1. Left radial measurements listed above. 2. Performing surgeon to determine viability as conduit.
== END 2023-05-28 14:21 | disposition home or self-care (01) ==
LOC: CATHCVL 05:41
PROVIDERS: ATTEND Internal Medicine Interventional Cardiology
DX: I08.3 Combined rheumatic disorders of mitral, aortic and tricuspid valves (principal); I25.10 Atherosclerotic heart disease of native coronary artery without angina pectoris; E03.9 Hypothyroidism, unspecified; E11.40 Type 2 diabetes mellitus with diabetic neuropathy, unspecified; E78.5 Hyperlipidemia, unspecified; F03.94 Unspecified dementia, unspecified severity, with anxiety; G47.33 Obstructive sleep apnea (adult) (pediatric); G89.29 Other chronic pain; I11.0 Hypertensive heart disease with heart failure; I50.9 Heart failure, unspecified; I25.2 Old myocardial infarction; I25.5 Ischemic cardiomyopathy; K21.9 Gastro-esophageal reflux disease without esophagitis; K58.9 Irritable bowel syndrome, unspecified; M19.90 Unspecified osteoarthritis, unspecified site; Z79.4 Long term (current) use of insulin; Z79.890 Hormone replacement therapy; Z86.73 Personal history of transient ischemic attack (TIA), and cerebral infarction without residual deficits; Z87.891 Personal history of nicotine dependence; Z88.0 Allergy status to penicillin; Z95.0 Presence of cardiac pacemaker; Z95.5 Presence of coronary angioplasty implant and graft; Z79.899 Other long term (current) drug therapy
CPT/HCPCS: 94150; 93306; 93458; 80061; 80053; 80048; 80074; 84443; 83735; 85025; 85610; 85730; 81001; 87070; 83036; 71046; 93931; 93970; 93922; 93880; 71250; 99152; C1769 ×2; C1894; J2001; J3010; J1644; Q9967

== ENCOUNTER 2023-06-18 12:09 | Emergency (ER) | payer MEDICARE, OTHER ==
[2023-06-18 12:27] LABS: Glucose,Whole Blood 219 mg/dL (70-110)
--- NOTE | 2023-06-18 14:12 | ED ---
General Adult HPI - General Chief complaint: Recheck/Abnormal Lab/Rx Stated complaint: high blood sugar Time Seen by Provider: 06/18/23 12:24 Source: patient, family, RN notes reviewed Mode of arrival: wheelchair Limitations: no limitations - History of Present Illness Initial comments: 72-year-old female presents emergency department with chief complaint of hyperglycemia. Patient states that her blood sugar has been elevated over the last several days. States that his highest 280 at home. Patient is on Levemir once a day and Jardiance. Patient denies any recent fevers chills cough or cold symptoms no nausea vomiting no dysuria denies any change in bowel habits. - Related Data Home Medications Medication Instructions Recorded Confirmed Nitroglycerin Sl Tabs [Nitrostat] 0.4 mg SL Q5M PRN 08/11/17 06/18/23 DULoxetine HCL [Cymbalta] 60 mg PO BID 12/27/19 06/18/23 Ezetimibe [Zetia] 10 mg PO HS 12/27/19 06/18/23 Atorvastatin Calcium [Lipitor] 40 mg PO DAILY 09/24/22 06/18/23 Donepezil [Aricept] 5 mg PO HS 09/24/22 06/18/23 Insulin Detemir [Levemir Flexpen] 50 units SQ DAILY 09/24/22 06/18/23 Omeprazole [PriLOSEC] 20 mg PO DAILY 09/24/22 06/18/23 oxyBUTYnin chloride [Ditropan XL] 5 mg PO BID 09/24/22 06/18/23 Empagliflozin [Jardiance] 25 mg PO DAILY 06/18/23 06/18/23 Levothyroxine Sodium [Synthroid] 112 mcg PO DAILY 06/18/23 06/18/23 Metoprolol Tartrate [Lopressor] 25 mg PO BID 06/18/23 06/18/23 lisinopriL [Zestril] 5 mg PO DAILY 06/18/23 06/18/23 Previous Rx's Medication Instructions Recorded Aspirin 81 mg PO DAILY tab 09/27/22 Gabapentin [Neurontin] 300 mg PO BID #24 cap 09/27/22 Allergies Allergy/AdvReac Type Severity Reaction Status Date / Time Penicillins Allergy Rash/Hives Verified 06/18/23 13:53 Review of Systems ROS Statement: Those systems with pertinent positive or pertinent negative responses have been documented in the HPI. ROS Other: All systems not noted in ROS Statement are negative. 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 Occasional dizziness. Normal pressure hydrocep halus - has shunt. Neuropathy bilateral feet/toes, chronic back pain, IBS, narcolepsy, gout. Last Myocardial Infarction Date:: 12/27/19 History of Any Multi-Drug Resistant Organisms: None Reported Past Surgical History: Back Surgery, EPS, Heart Catheterization With Stent, Joint Replacement, Orthopedic Surgery, Pacemaker, Tubal Ligation Additional Past Surgical History / Comment(s): 4 cardiac stents, low back surgery, brain shunt, colonoscopy, total left knee replacement, permanent pacemaker placement, got infected and removed and then replaced. Past Anesthesia/Blood Transfusion Reactions: Motion Sickness, Postoperative Nausea & Vomiting (PONV) Date of Last Stent Placement:: 12/27/19 Type of Cardiac Device: Permanent Pacemaker Device Placement Date:: MAR 2020 Past Psychological History: Anxiety Smoking Status: Never smoker Past Alcohol Use History: None Reported Past Drug Use History: None Reported - Past Family History Father History Unknown: Yes Family Medical History: Congestive Heart Failure (CHF), Hypertension, Myocardial Infarction (NE) Mother History Unknown: Yes Family Medical History: Congestive Heart Failure (CHF), Hypertension, Myocardial Infarction (NE) Brother(s) Family Medical History: Cancer, Myocardial Infarction (NE) Additional Family Medical History / Comment(s): One brother had an NE. Another brother had prostate cancer. General Exam Limitations: no limitations General appearance: alert, in no apparent distress Head exam: Present: atraumatic, normocephalic, normal inspection Eye exam: Present: normal appearance, PERRL, EOMI. Absent: scleral icterus, conjunctival injection, periorbital swelling ENT exam: Present: normal exam, mucous membranes moist Neck exam: Present: normal inspection. Absent: tenderness, meningismus, lymphadenopathy Respiratory exam: Present: normal lung sounds bilaterally. Absent: respiratory distress, wheezes, rales, rhonchi, stridor Cardiovascular Exam: Present: regular rate, normal rhythm, normal heart sounds. Absent: systolic murmur, diastolic murmur, rubs, gallop, clicks GI/Abdominal exam: Present: soft, normal bowel sounds. Absent: distended, tenderness, guarding, rebound, rigid Course Vital Signs 06/18/23 06/18/23 12:26 15:35 Temperature 98.3 F Pulse Rate 60 62 Respiratory 16 16 Rate Blood Pressure 195/98 182/92 O2 Sat by Pulse 98 98 Oximetry Medical Decision Making - Medical Decision Making Was pt. sent in by a medical professional or institution (, NURIA, VIDEO MANAGER, urgent care, hospital, or care home...) When possible be specific @ -No Did you speak to anyone other than the patient for history (EMS, parent, family, police, friend...)? What history was obtained from this source @ -No Did you review nursing and triage notes (agree or disagree)? Why? @ -I reviewed and agree with nursing and triage notes Were old charts reviewed (outside hosp., previous admission, EMS record, old EKG, old radiological studies, urgent care reports/EKG's, care home records)? Report findings @ -No old charts were reviewed Differential Diagnosis (chest pain, altered mental status, abdominal pain women, abdominal pain men, vaginal bleeding, weakness, fever, dyspnea, syncope, headache, dizziness, GI bleed, back pain, seizure, CVA, palpatations, mental health, musculoskeletal)? @ -[Hyper glycemic, diabetes, UTI EKG interpreted by me (3pts min.). @ -None X-rays interpreted by me (1pt min.). @ -None done CT interpreted by me (1pt min.). @ -None done U/S interpreted by me (1pt. min.). @ -None done What testing was considered but not performed or refused? (CT, X-rays, U/S, labs)? Why? @ -None What meds were considered but not given or refused? Why? @ -None Did you discuss the management of the patient with other professionals (professionals i.e. NURIA Fontenot, VIDEO MANAGER, lab, RT, psych nurse, social sciences instructor, gunite mixer, teacher, strategic debriefing officer, case managers)? Give summary @ -No Was smoking cessation discussed for >3mins.? @ -No Was critical care preformed (if so, how long)? @ -No Were there social determinants of health that impacted care today? How? (Homelessness, low income, unemployed, alcoholism, drug addiction, transportation, low edu. Level, literacy, decrease access to med. care, fdc, rehab)? @ -No Was there de-escalation of care discussed even if they declined (Discuss DNR or withdrawal of care, Hospice)? DNR status @ -No What co-morbidities impacted this encounter? (DM, HTN, Smoking, COPD, CAD, Cancer, CVA, ARF, Chemo, Hep., AIDS, mental health diagnosis, sleep apnea, morbid obesity)? @ -[Diabetes Was patient admitted / discharged? Hospital course, mention meds given and route, prescriptions, significant lab abnormalities, going to OR and other pertinent info. @ -Discharged patient blood sugars greatly improved laboratory studies otherwise unremarkable. Patient will follow-up with PCP for adjustments. Undiagnosed new problem with uncertain prognosis? @ -No Drug Therapy requiring intensive monitoring for toxicity (Heparin, Nitro, Insulin, Cardizem)? @ -No Were any procedures done? @ -No Diagnosis/symptom? @ -[Hyperglycemia Acute, or Chronic, or Acute on Chronic? @ -Acute Uncomplicated (without systemic symptoms) or Complicated (systemic symptoms)? @ -Uncomplicated Side effects of treatment? @ -No Exacerbation, Progression, or Severe Exacerbation? @ -No Poses a threat to life or bodily function? How? (Chest pain, USA, NE, pneumonia, PE, COPD, DKA, ARF, appy, cholecystitis, CVA, Diverticulitis, Homicidal, Suicidal, threat to staff... and all critical care pts) @ -No - Lab Data Result diagrams: 06/18/23 14:27 06/18/23 14:27 Lab Results 06/18/23 06/18/23 06/18/23 Range/Units 12:25 14:27 14:27 WBC 8.2 (3.8-10.6) k/uL RBC 4.71 (3.80-5.40) m/uL Hgb 12.4 (11.4-16.0) gm/dL Hct 39.0 (34.0-46.0) % MCV 82.8 (80.0-100.0) fL MCH 26.4 (25.0-35.0) pg MCHC 31.9 (31.0-37.0) g/dL RDW 16.3 H (11.5-15.5) % Plt Count 153 (150-450) k/uL MPV 9.3 Neutrophils % 63 % Lymphocytes % 30 % Monocytes % 5 % Eosinophils % 0 % Basophils % 0 % Neutrophils # 5.2 (1.3-7.7) k/uL Lymphocytes # 2.5 (1.0-4.8) k/uL Monocytes # 0.4 (0-1.0) k/uL Eosinophils # 0.0 (0-0.7) k/uL Basophils # 0.0 (0-0.2) k/uL Anisocytosis Slight Sodium (137-145) mmol/L Potassium (3.5-5.1) mmol/L Chloride (98-107) mmol/L Carbon Dioxide (22-30) mmol/L Anion Gap mmol/L BUN (7-17) mg/dL Creatinine (0.52-1.04) mg/dL Est GFR (CKD-EPI)AfAm (>60 ml/min/1.73 sqM) Est GFR (CKD-EPI)NonAf (>60 ml/min/1.73 sqM) Glucose (74-99) mg/dL POC Glucose (mg/dL) 219 H (70-110) mg/dL POC Glu Credit Professional ID Carl Rich Plasma Lactic Acid Quang (0.7-2.0) mmol/L Calcium (8.4-10.2) mg/dL Total Bilirubin (0.2-1.3) mg/dL AST (14-36) U/L ALT (4-34) U/L Alkaline Phosphatase (38-126) U/L Total Protein (6.3-8.2) g/dL Albumin (3.5-5.0) g/dL Urine Color Colorless Urine Appearance Clear (Clear) Urine pH 6.0 (5.0-8.0) Ur Specific Delta 1.025 (1.001-1.035) Urine Protein Trace H (Negative) Urine Glucose (UA) 4+ H (Negative) Urine Ketones Negative (Negative) Urine Blood Negative (Negative) Urine Nitrite Negative (Negative) Urine Bilirubin Negative (Negative) Urine Urobilinogen <2.0 (<2.0) mg/dL Ur Leukocyte Esterase Negative (Negative) 06/18/23 06/18/23 06/18/23 Range/Units 14:27 14:27 15:58 WBC (3.8-10.6) k/uL RBC (3.80-5.40) m/uL Hgb (11.4-16.0) gm/dL Hct (34.0-46.0) % MCV (80.0-100.0) fL MCH (25.0-35.0) pg MCHC (31.0-37.0) g/dL RDW (11.5-15.5) % Plt Count (150-450) k/uL MPV Neutrophils % % Lymphocytes % % Monocytes % % Eosinophils % % Basophils % % Neutrophils # (1.3-7.7) k/uL Lymphocytes # (1.0-4.8) k/uL Monocytes # (0-1.0) k/uL Eosinophils # (0-0.7) k/uL Basophils # (0-0.2) k/uL Anisocytosis Sodium 141 (137-145) mmol/L Potassium 3.9 (3.5-5.1) mmol/L Chloride 107 (98-107) mmol/L Carbon Dioxide 26 (22-30) mmol/L Anion Gap 8 mmol/L BUN 22 H (7-17) mg/dL Creatinine 0.65 (0.52-1.04) mg/dL Est GFR (CKD-EPI)AfAm >90 (>60 ml/min/1.73 sqM) Est GFR (CKD-EPI)NonAf 89 (>60 ml/min/1.73 sqM) Glucose 178 H (74-99) mg/dL POC Glucose (mg/dL) 134 H (70-110) mg/dL POC Glu Credit Professional ID Kacey Saldaña Plasma Lactic Acid Quang 1.2 (0.7-2.0) mmol/L Calcium 9.2 (8.4-10.2) mg/dL Total Bilirubin 0.5 (0.2-1.3) mg/dL AST 22 (14-36) U/L ALT 17 (4-34) U/L Alkaline Phosphatase 113 (38-126) U/L Total Protein 6.5 (6.3-8.2) g/dL Albumin 3.8 (3.5-5.0) g/dL Urine Color Urine Appearance (Clear) Urine pH (5.0-8.0) Ur Specific Delta (1.001-1.035) Urine Protein (Negative) Urine Glucose (UA) (Negative) Urine Ketones (Negative) Urine Blood (Negative) Urine Nitrite (Negative) Urine Bilirubin (Negative) Urine Urobilinogen (<2.0) mg/dL Ur Leukocyte Esterase (Negative) Disposition Clinical Impression: Hyperglycemia Disposition: HOME SELF-CARE Condition: Stable Instructions (If sedation given, give patient instructions): Diabetic Hyperglycemia (ED) Additional Instructions: Please return to the Emergency Department if symptoms worsen or any other concerns. Is patient prescribed a controlled substance at d/c from ED?: No Referrals: Medhat Asif DO [Primary Care Provider] - 1-2 days Time of Disposition: 16:06
[2023-06-18 14:35] LABS: Anisocytosis Slight; Basophils % (A) 0 %; Eosinophils % (A) 0 %; HGB 12.4 gm/dL (11.4-16.0); Lymphocytes # (A) 2.5 k/uL (1.0-4.8); Lymphocytes % (A) 30 %; MCH 26.4 pg (25.0-35.0); MCHC 31.9 g/dL (31.0-37.0); MCV 82.8 fL (80.0-100.0); Mean Platelet Volume 9.3; Monocytes # (A) 0.4 k/uL (0-1.0); Monocytes % (A) 5 %; Neutrophils # (A) 5.2 k/uL (1.3-7.7); Neutrophils % (A) 63 %; Platelet Count 153 k/uL (150-450); RBC 4.71 m/uL (3.80-5.40); RDW 16.3 % (11.5-15.5); WBC 8.2 k/uL (3.8-10.6)
[2023-06-18] MEDS: SODIUM CHLORIDE 0.9% 500 ML 500 ML IV STA (14:36)
[2023-06-18 14:54] LABS: ALT 17 U/L (4-34); AST 22 U/L (14-36); African American GFR (CKD) >90 (>60 ml/min/1.73 sqM); Albumin 3.8 g/dL (3.5-5.0); Alkaline Phosphatase 113 U/L (38-126); Anion Gap 8 mmol/L; Blood Urea Nitrogen 22 mg/dL (7-17); Calcium 9.2 mg/dL (8.4-10.2); Carbon Dioxide 26 mmol/L (22-30); Chloride 107 mmol/L (98-107); Glucose 178 mg/dL (74-99); Non-African American GFR(CKD) 89 (>60 ml/min/1.73 sqM); Potassium 3.9 mmol/L (3.5-5.1); Sodium 141 mmol/L (137-145); Total Bilirubin 0.5 mg/dL (0.2-1.3); Total Protein 6.5 g/dL (6.3-8.2)
[2023-06-18 15:58] LABS: Appearance,Urine Clear (Clear); Bilirubin,Urine Negative (Negative); Blood,Urine Negative (Negative); Color,Urine Colorless; Glucose,Urine (UA) 4+ (Negative); Ketones,Urine Negative (Negative); Leukocyte Esterase,Urine Negative (Negative); Nitrite,Urine Negative (Negative); Protein,Urine Trace (Negative); Specific Gravity,Urine 1.025 (1.001-1.035); Urobilinogen,Urine <2.0 mg/dL (<2.0)
[2023-06-18 16:02] LABS: Glucose,Whole Blood 134 mg/dL (70-110)
[2023-06-18 16:19] VITALS: BP 168/90; PULSE 64; RESP 18; TEMP 96.6
== END 2023-06-18 16:17 | disposition home or self-care (01) ==
LOC: EC 12:09
DX: E11.65 Type 2 diabetes mellitus with hyperglycemia (principal); Z88.0 Allergy status to penicillin
CPT/HCPCS: 36415; 80053; 81003; 83605; 85025; 99283

== ENCOUNTER 2023-10-28 15:43 | Emergency (ER) | payer MEDICARE, OTHER ==
[2023-10-28] MEDS: SODIUM CHLORIDE 0.9% 1,000 ML IV STA (16:44)
[2023-10-28 16:53] LABS: Anisocytosis Slight; Basophils % (A) 0 %; Eosinophils % (A) 0 %; HCT 36.3 % (34.0-46.0); HGB 11.9 gm/dL (11.4-16.0); Hypochromasia Slight; Lymphocytes # (A) 1.6 k/uL (1.0-4.8); Lymphocytes % (A) 24 %; MCH 27.2 pg (25.0-35.0); MCHC 32.8 g/dL (31.0-37.0); MCV 82.9 fL (80.0-100.0); Mean Platelet Volume 9.2; Microcytosis Slight; Monocytes # (A) 0.5 k/uL (0-1.0); Monocytes % (A) 7 %; Neutrophils # (A) 4.5 k/uL (1.3-7.7); Neutrophils % (A) 67 %; Platelet Count 151 k/uL (150-450); RBC 4.38 m/uL (3.80-5.40); RDW 18.3 % (11.5-15.5); WBC 6.7 k/uL (3.8-10.6)
[2023-10-28 17:08] LABS: ALT 24 U/L (4-34); AST 28 U/L (14-36); African American GFR (CKD) 89 (>60 ml/min/1.73 sqM); Albumin 3.6 g/dL (3.5-5.0); Alkaline Phosphatase 90 U/L (38-126); Anion Gap 7 mmol/L; Blood Urea Nitrogen 18 mg/dL (7-17); Calcium 9.1 mg/dL (8.4-10.2); Carbon Dioxide 24 mmol/L (22-30); Chloride 112 mmol/L (98-107); Glucose 152 mg/dL (74-99); Magnesium 1.4 mg/dL (1.6-2.3); Non-African American GFR(CKD) 77 (>60 ml/min/1.73 sqM); Potassium 3.6 mmol/L (3.5-5.1); Sodium 143 mmol/L (137-145); Total Bilirubin 0.5 mg/dL (0.2-1.3); Total Protein 6.1 g/dL (6.3-8.2)
[2023-10-28 17:13] VITALS: TEMP 98.4
--- NOTE | 2023-10-28 17:43 | ED ---
Weakness HPI - General Chief complaint: Weakness Stated complaint: heat exhaustion Time Seen by Provider: 10/28/23 15:50 Source: EMS Mode of arrival: EMS Limitations: no limitations - History of Present Illness Initial comments: 73-year-old female with past medical history of stroke who presents emergency department with possible heatstroke. helps provide the history. States that the patient has been lying outside in the sun for an extended period of time. She had attempted to get up and ambulate into the house. She sustained a fall and scraped her left foot. She fell to the ground. Denies hitting her head or losing consciousness. She states that she just feels fatigued likely due to heat exhaustion without fluid intake. She denies any chest pain or difficulty breathing. Feels better in the cool environment. Denies any new spe ech changes or lateralizing weakness. No other alleviating, precipitating or modifying factors - Related Data Home Medications Medication Instructions Recorded Confirmed Nitroglycerin Sl Tabs [Nitrostat] 0.4 mg SL Q5M PRN 08/11/17 06/18/23 DULoxetine HCL [Cymbalta] 60 mg PO BID 12/27/19 06/18/23 Ezetimibe [Zetia] 10 mg PO HS 12/27/19 06/18/23 Atorvastatin Calcium [Lipitor] 40 mg PO DAILY 09/24/22 06/18/23 Donepezil [Aricept] 5 mg PO HS 09/24/22 06/18/23 Insulin Detemir [Levemir Flexpen] 50 units SQ DAILY 09/24/22 06/18/23 Omeprazole [PriLOSEC] 20 mg PO DAILY 09/24/22 06/18/23 oxyBUTYnin chloride [Ditropan XL] 5 mg PO BID 09/24/22 06/18/23 Empagliflozin [Jardiance] 25 mg PO DAILY 06/18/23 06/18/23 Levothyroxine Sodium [Synthroid] 112 mcg PO DAILY 06/18/23 06/18/23 Metoprolol Tartrate [Lopressor] 25 mg PO BID 06/18/23 06/18/23 lisinopriL [Zestril] 5 mg PO DAILY 06/18/23 06/18/23 Previous Rx's Medication Instructions Recorded Aspirin 81 mg PO DAILY tab 09/27/22 Gabapentin [Neurontin] 300 mg PO BID #24 cap 09/27/22 Allergies Allergy/AdvReac Type Severity Reaction Status Date / Time Penicillins Allergy Rash/Hives Verified 10/28/23 15:53 Review of Systems ROS Statement: Those systems with pertinent positive or pertinent negative responses have been documented in the HPI. ROS Other: All systems not noted in ROS Statement are negative. 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 Occasional dizziness. Normal pressure hydrocephalus - has shunt. Neuropathy bilateral feet/toes, chronic back pain, IBS, narcolepsy, gout. Last Myocardial Infarction Date:: 12/27/19 History of Any Multi-Drug Resistant Organisms: None Reported Past Surgical History: Back Surgery, EPS, Heart Catheterization With Stent, Joint Replacement, Orthopedic Surgery, Pacemaker, Tubal Ligation Additional Past Surgical History / Comment(s): 4 cardiac stents, low back surgery, brain shunt, colonoscopy, total left knee replacement, permanent pacemaker placement, got infected and removed and then replaced. Past Anesthesia/Blood Transfusion Reactions: Motion Sickness, Postoperative Nausea & Vomiting (PONV) Date of Last Stent Placement:: 12/27/19 Type of Cardiac Device: Permanent Pacemaker Device Placement Date:: MAR 2020 Past Psychological History: Anxiety Smoking Status: Never smoker Past Alcohol Use History: None Reported Past Drug Use History: None Reported - Past Family History Father History Unknown: Yes Family Medical History: Congestive Heart Failure (CHF), Hypertension, Myocardial Infarction (IN) Mother History Unknown: Yes Family Medical History: Congestive Heart Failure (CHF), Hypertension, Myocardial Infarction (IN) Brother(s) Family Medical History: Cancer, Myocardial Infarction (IN) Additional Family Medical History / Comment(s): One brother had an IN. Another brother had prostate cancer. General Exam Limitations: no limitations General appearance: alert, in no apparent distress Head exam: Present: atraumatic, normocephalic, normal inspection Eye exam: Present: normal appearance, PERRL, EOMI. Absent: scleral icterus, conjunctival injection, periorbital swelling ENT exam: Present: mucous membranes moist, other (Dysarthria which is baseline) Neck exam: Present: normal inspection. Absent: tenderness, meningismus, lymphadenopathy Respiratory exam: Present: normal lung sounds bilaterally. Absent: respiratory distress, wheezes, rales, rhonchi, stridor Cardiovascular Exam: Present: regular rate, normal rhythm, normal heart sounds. Absent: systolic murmur, diastolic murmur, rubs, gallop, clicks GI/Abdominal exam: Present: soft, normal bowel sounds. Absent: distended, tenderness, guarding, rebound, rigid Extremities exam: Present: normal inspection, full ROM, normal capillary refill. Absent: tenderness, pedal edema, joint swelling, calf tenderness Back exam: Present: normal inspection Neurological exam: Present: alert, oriented X3, CN II-XII intact Psychiatric exam: Present: normal affect, normal mood Skin exam: Present: warm, dry, normal color, other (Blister to the plantar aspect of the left foot. There is also a ruptured blister on the fifth toe of the left foot which is bleeding). Absent: rash Course Vital Signs 10/28/23 10/28/23 10/28/23 15:48 17:06 18:06 Temperature 99.1 F 98.4 F Pulse Rate 100 75 74 Respiratory 20 17 18 Rate Blood Pressure 128/83 131/73 152/80 O2 Sat by Pulse 97 96 96 Oximetry Medical Decision Making - Medical Decision Making Was pt. sent in by a medical professional or institution (, PA, CHOCOLATE MOLDER, urgent care, hospital, or residential...) When possible be specific @ -No Did you speak to anyone other than the patient for history (EMS, parent, family, police, friend...)? What history was obtained from this source @ -Spoke with EMS Did you review nursing and triage notes (agree or disagree)? Why? @ -I reviewed and agree with nursing and triage notes Were old charts reviewed (outside hosp., previous admission, EMS record, old EKG, old radiological studies, urgent care reports/EKG's, residential records)? Report findings @ -No old charts were reviewed Differential Diagnosis (chest pain, altered mental status, abdominal pain women, abdominal pain men, vaginal bleeding, weakness, fever, dyspnea, syncope, headache, dizziness, GI bleed, back pain, seizure, CVA, palpatations, mental health, musculoskeletal)? @Differential Syncope: Valvular disease, hypertrophic cardiomyopathy, pulmonary embolism, tamponade, tachycardia, bradycardia, IN, hypovolemia, hemorrhage, dissection, anemia, intracranial hemorrhage, seizure, hypoglycemia, carbon monoxide poisoning, this is not meant to be an all-inclusive list. EKG interpreted by me (3pts min.). @ -Yes and demonstrates sinus rhythm with a rate of 92. CA interval 171. QRS 88. QTc of 424. Q wave in lead III with inverted T wave. No acute ST segment elevation X-rays interpreted by me (1pt min.). @ -None done CT interpreted by me (1pt min.). @ -None done U/S interpreted by me (1pt. min.). @ -None done What testing was considered but not performed or refused? (CT, X-rays, U/S, labs)? Why? @ -None What meds were considered but not given or refused? Why? @ -None Did you discuss the management of the patient with other professionals (pro fessionals i.e. , PA, CHOCOLATE MOLDER, lab, RT, psych nurse, outreach and education social worker, supervisor screen printing, teacher, procurement officer, case picker)? Give summary @ -No Was smoking cessation discussed for >3mins.? @ -No Was critical care preformed (if so, how long)? @ -No Were there social determinants of health that impacted care today? How? (Homelessness, low income, unemployed, alcoholism, drug addiction, transportation, low edu. Level, literacy, decrease access to med. care, snf, rehab)? @ -None Was there de-escalation of care discussed even if they declined (Discuss DNR or withdrawal of care, Hospice)? DNR status @ -No What co-morbidities impacted this encounter? (DM, HTN, Smoking, COPD, CAD, Cancer, CVA, ARF, Chemo, Hep., AIDS, mental health diagnosis, sleep apnea, morbid obesity)? @ -History of stroke Was patient admitted / discharged? Hospital course, mention meds given and route, prescriptions, significant lab abnormalities, going to OR and other pertinent info. @ -Upon arrival patient seen and evaluated in room 2. Thorough history and physical exam was performed. IV access was established and patient given intravenous fluids. Laboratory studies are conducted. Upon return the results the patient states that she still feels asymptomatic at this time and would like to go home. We did cleanse and bandage the patient's left foot. This is not amenable to suture or staple repair. Patient is to follow-up with her primary care doctor and return for any new or worsening symptoms Undiagnosed new problem with uncertain prognosis? @ -No Drug Therapy requiring intensive monitoring for toxicity (Heparin, Nitro, Insulin, Cardizem)? @ -No Were any procedures done? @ -No Diagnosis/symptom? @ -Near syncope, fall, left foot skin tear, suspected heat exhaustion Acute, or Chronic, or Acute on Chronic? @ -Acute Uncomplicated (without systemic symptoms) or Complicated (systemic symptoms)? @ -Complicated Side effects of treatment? @ -No Exacerbation, Progression, or Severe Exacerbation? @ -No Poses a threat to life or bodily function? How? (Chest pain, USA, [place], pneumonia, PE, COPD, DKA, ARF, appy, cholecystitis, CVA, Diverticulitis, Homicidal, Suicidal, threat to staff... and all critical care pts) @ -No - Lab Data Result diagrams: 10/28/23 16:00 10/28/23 16:00 Lab Results 10/28/23 10/28/23 10/28/23 Range/Units 16:00 16:00 16:00 WBC 6.7 (3.8-10.6) k/uL RBC 4.38 (3.80-5.40) m/uL Hgb 11.9 (11.4-16.0) gm/dL Hct 36.3 (34.0-46.0) % MCV 82.9 (80.0-100.0) fL MCH 27.2 (25.0-35.0) pg MCHC 32.8 (31.0-37.0) g/dL RDW 18.3 H (11.5-15.5) % Plt Count 151 (150-450) k/uL MPV 9.2 Neutrophils % 67 % Lymphocytes % 24 % Monocytes % 7 % Eosinophils % 0 % Basophils % 0 % Neutrophils # 4.5 (1.3-7.7) k/uL Lymphocytes # 1.6 (1.0-4.8) k/uL Monocytes # 0.5 (0-1.0) k/uL Eosinophils # 0.0 (0-0.7) k/uL Basophils # 0.0 (0-0.2) k/uL Hypochromasia Slight Anisocytosis Slight Microcytosis Slight Sodium 143 (137-145) mmol/L Potassium 3.6 (3.5-5.1) mmol/L Chloride 112 H (98-107) mmol/L Carbon Dioxide 24 (22-30) mmol/L Anion Gap 7 mmol/L BUN 18 H (7-17) mg/dL Creatinine 0.77 (0.52-1.04) mg/dL Est GFR (CKD-EPI)AfAm 89 (>60 ml/min/1.73 sqM) Est GFR (CKD-EPI)NonAf 77 (>60 ml/min/1.73 sqM) Glucose 152 H (74-99) mg/dL Plasma Lactic Acid Quang 2.0 (0.7-2.0) mmol/L Calcium 9.1 (8.4-10.2) mg/dL Magnesium 1.4 L (1.6-2.3) mg/dL Total Bilirubin 0.5 (0.2-1.3) mg/dL AST 28 (14-36) U/L ALT 24 (4-34) U/L Alkaline Phosphatase 90 (38-126) U/L Total Protein 6.1 L (6.3-8.2) g/dL Albumin 3.6 (3.5-5.0) g/dL Disposition Clinical Impression: Heat exhaustion, Fall, Blister of foot, Hypomagnesemia Disposition: HOME SELF-CARE Condition: Stable Instructions (If sedation given, give patient instructions): Heat Exhaustion (ED) Additional Instructions: I recommend an [id number] magnesium supplement. Follow-up with your primary care doctor and return for any new or worsening symptoms Is patient prescribed a controlled substance at d/c from ED?: No Referrals: Medhat Asif DO [Primary Care Provider] - 1-2 days Time of Disposition: 17:41
[2023-10-28] MEDS: MAGNESIUM OXIDE 400 MG TAB PO STA (18:04)
[2023-10-28 18:07] VITALS: BP 152/80; PULSE 74; RESP 18
== END 2023-10-28 18:07 | disposition home or self-care (01) ==
LOC: EC 15:43
DX: S90.822A Blister (nonthermal), left foot, initial encounter (principal); E83.42 Hypomagnesemia; T67.5XXA Heat exhaustion, unspecified, initial encounter; Z86.73 Personal history of transient ischemic attack (TIA), and cerebral infarction without residual deficits; Z88.0 Allergy status to penicillin; Z95.5 Presence of coronary angioplasty implant and graft; Z95.0 Presence of cardiac pacemaker; W18.30XA Fall on same level, unspecified, initial encounter; Y92.009 Unspecified place in unspecified non-institutional (private) residence as the place of occurrence of the external cause
CPT/HCPCS: 36415; 80053; 83605; 83735; 85025; 93005; 96360; 99285

== ENCOUNTER 2023-12-02 13:01 | Inpatient (IN) | payer MEDICARE, OTHER ==
--- NOTE | 2023-12-02 13:23 | ED ---
General Adult HPI - General Chief complaint: Chest Pain Stated complaint: chest pain Time Seen by Provider: 12/02/23 13:05 Source: patient, EMS, RN notes reviewed, old records reviewed Mode of arrival: EMS - History of Present Illness Initial comments: This is a 73-year-old female who presents to the emergency department because she was having chest pain and felt very weak at home. Patient states the chest pain is pressure and it did make her short of breath earlier but she is no longer short of breath. Patient denies any radiation of the pain patient denies any back pain. Patient denies any diaphoretic episode. Patient denies any nausea vomiting or diarrhea. Patient has any abdominal pain. Patient denies any fever or chills. Patient states she does overall feel much weaker. - Related Data Home Medications Medication Instructions Recorded Confirmed Nitroglycerin Sl Tabs [Nitrostat] 0.4 mg SL Q5M PRN 08/11/17 06/18/23 DULoxetine HCL [Cymbalta] 60 mg PO BID 12/27/19 06/18/23 Ezetimibe [Zetia] 10 mg PO HS 12/27/19 06/18/23 Atorvastatin Calcium [Lipitor] 40 mg PO DAILY 09/24/22 06/18/23 Donepezil [Aricept] 5 mg PO HS 09/24/22 06/18/23 Insulin Detemir [Levemir Flexpen] 50 units SQ DAILY 09/24/22 06/18/23 Omeprazole [PriLOSEC] 20 mg PO DAILY 09/24/22 06/18/23 oxyBUTYnin chloride [Ditropan XL] 5 mg PO BID 09/24/22 06/18/23 Empagliflozin [Jardiance] 25 mg PO DAILY 06/18/23 06/18/23 Levothyroxine Sodium [Synthroid] 112 mcg PO DAILY 06/18/23 06/18/23 Metoprolol Tartrate [Lopressor] 25 mg PO BID 06/18/23 06/18/23 lisinopriL [Zestril] 5 mg PO DAILY 06/18/23 06/18/23 Previous Rx's Medication Instructions Recorded Aspirin 81 mg PO DAILY tab 09/27/22 Gabapentin [Neurontin] 300 mg PO BID #24 cap 09/27/22 Allergies Allergy/AdvReac Type Severity Reaction Status Date / Time Penicillins Allergy Rash/Hives Verified 12/02/23 15:10 Review of Systems ROS Statement: Those systems with pertinent positive or pertinent negative responses have been documented in the HPI. ROS Other: All systems not noted in ROS Statement are negative. 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 Occasional dizziness. Normal pressure hydrocephalus - has shunt. Neuropathy bilateral feet/toes, chronic back pain, IBS, narcolepsy, gout. Last Myocardial Infarction Date:: 12/27/19 History of Any Multi-Drug Resistant Organisms: None Reported Past Surgical History: Back Surgery, EPS, Heart Catheterization With Stent, Joint Replacement, Orthopedic Surgery, Pacemaker, Tubal Ligation Additional Past Surgical History / Comment(s): 4 cardiac stents, low back surgery, brain shunt, colonoscopy, total left knee replacement, permanent pacemaker placement, got infected and removed and then replaced. Past Anesthesia/Blood Transfusion Reactions: Motion Sickness, Postoperative Nausea & Vomiting (PONV) Date of Last Stent Placement:: 12/27/19 Type of Cardiac Device: Permanent Pacemaker Device Placement Date:: MAR 2020 Past Psychological History: Anxiety Smoking Status: Never smoker Past Alcohol Use History: None Reported Past Drug Use History: None Reported - Past Family History Father History Unknown: Yes Family Medical History: Congestive Heart Failure (CHF), Hypertension, Myocardial Infarction ([place]) Mother History Unknown: Yes Family Medical History: Congestive Heart Failure (CHF), Hypertension, Myocardial Infarction ([place]) Brother(s) Family Medical History: Cancer, Myocardial Infarction ([place]) Additional Family Medical History / Comment(s): One brother had an [place]. Another brother had prostate cancer. General Exam - General Exam Comments Initial Comments: GENERAL: Patient is well-developed and well-nourished. Patient is nontoxic and well- hydrated and is in mild distress. ENT: Neck is soft and supple. No significant lymphadenopathy is noted. Oropharynx is clear. Moist mucous membranes. Neck has full range of motion without eliciting any pain. EYES: The sclera were anicteric and conjunctiva were pink and moist. Extraocular movements were intact and pupils were equal round and reactive to light. Eyelids were unremarkable. PULMONARY: Unlabored respirations. Good breath sounds bilaterally. No audible rales rhonchi or wheezing was noted. CARDIOVASCULAR: There is a regular rate and rhythm without any murmurs gallops or rubs. ABDOMEN: Soft and nontender with normal bowel sounds. SKIN: Skin is clear with no lesions or rashes and otherwise unremarkable. NEUROLOGIC: Patient is alert and oriented x3. Cranial nerves II through XII are grossly intact. Motor and sensory are also intact. Normal speech, volume and content. Symmetrical smile. MUSCULOSKELETAL: Normal extremities with adequate strength and full range of motion. LYMPHATICS: No significant lymphadenopathy is noted PSYCHIATRIC: Normal psychiatric evaluation. Course Vital Signs 12/02/23 12/02/23 13:02 14:50 Temperature 97.9 F Pulse Rate 86 73 Respiratory 18 18 Rate Blood Pressure 197/114 166/92 O2 Sat by Pulse 97 99 Oximetry Medical Decision Making - Medical Decision Making I interpreted the EKG myself. EKG shows a sinus rhythm at 95 bpm parables under 72 QRS is 100 QT interval 378 QTc is 331. Patient's EKG shows Q waves in V1 and V2 Was pt. sent in by a medical professional or institution (, PA, PHYSICIAN UNDERWRITER, urgent care, hospital, or fdc...) When possible be specific @ -[No] Did you speak to anyone other than the patient for history (EMS, parent, family, police, friend...)? What history was obtained from this source @ -[No] Did you review nursing and triage notes (agree or disagree)? Why? @ -[I reviewed and agree with nursing and triage notes] Were old charts reviewed (outside hosp., previous admission, EMS record, old EKG, old radiological studies, urgent care reports/EKG's, fdc records)? Report findings @ -[No old charts were reviewed] Differential Diagnosis? @ -Differential Chest Pain: Stable Angina, Unstable Angina, STEMI, NSTEMI Aortic Dissection, Pneumothorax, Musculoskeletal, Esophageal Spasm GERD, Cholecystitis, Pancreatitis, Zoster, this is not meant to be an all-inclusive list. EKG interpreted by me (3pts min.). @ -[As above] X-rays interpreted by me (1pt min.). @ -Chest x-ray shows no acute abnormality CT interpreted by me (1pt min.). @ -[None done] U/S interpreted by me (1pt. min.). @ -[None done] What testing was considered but not performed or refused? (CT, X-rays, U/S, labs)? Why? @ -[None] What meds were considered but not given or refused? Why? @ -[None] Did you discuss the management of the patient with other professionals (professionals i.e. DrJennifer, PA, PHYSICIAN UNDERWRITER, lab, RT, psych nurse, social sciences chair, remote medical coder, teacher, patient safety officer, nurse case manager)? Give summary @ -Was Felipe and he agreed to admit the patient admit the patient wrote admitting orders. I also spoke with Dr. Rasmussen and he is made aware of the elevated troponin and patient was placed on heparin given aspirin and Nitropaste as well as given a statin Was smoking cessation discussed for >3mins.? @ -[No] Was critical care preformed (if so, how long)? @ -35 minutes Were there social determinants of health that impacted care today? How? (Homelessness, low income, unemployed, alcoholism, drug addiction, transportation, low edu. Level, literacy, decrease access to med. care, halfway, rehab)? @ -[No] Was there de-escalation of care discussed even if they declined (Discuss DNR or withdrawal of care, Hospice)? DNR status @ -[No] What co-morbidities impacted this encounter? (DM, HTN, Smoking, COPD, CAD, Cancer, CVA, ARF, Chemo, Hep., AIDS, mental health diagnosis, sleep apnea, morbid obesity)? @ -[None] Was patient admitted / discharged? Hospital course, mention meds given and route, prescriptions, significant lab abnormalities, going to OR and other pertinent info. @ -Patient has an NSTEMI he was placed on heparin given aspirin Nitropaste and a statin patient is admitted I spoke with Dr. Rasmussen and Dr. Wang. Patient cu rrently chest pain-free. Undiagnosed new problem with uncertain prognosis? @ -[No] Drug Therapy requiring intensive monitoring for toxicity (Heparin, Nitro, Insulin, Cardizem)? @ -[No] Were any procedures done? @ -[No] Diagnosis/symptom? @ -[default] Acute, or Chronic, or Acute on Chronic? @ -Acute Uncomplicated (without systemic symptoms) or Complicated (systemic symptoms)? @ -Complicated Side effects of treatment? @ -[No] Exacerbation, Progression, or Severe Exacerbation? @ -[No] Poses a threat to life or bodily function? How? (Chest pain, [place], [place], pneumonia, PE, COPD, DKA, ARF, appy, cholecystitis, CVA, Diverticulitis, Homicidal, Suicidal, threat to staff... and all critical care pts) @ -Yes this can lead to poor perfusion and endorgan dysfunction Repeat EKG was interpreted by myself. It shows a sinus rhythm at 85 beats a minute OR interval at 169 QRS is 95 QT interval 3 5 QTc is 427. Patient's EKG shows no ST segment ovation or depression. - Lab Data Result diagrams: 12/02/23 13:32 12/02/23 13:32 Lab Results 12/02/23 12/02/23 12/02/23 Range/Units 13:32 13:32 13:32 WBC 7.7 (3.8-10.6) k/uL RBC 4.50 (3.80-5.40) m/uL Hgb 12.0 (11.4-16.0) gm/dL Hct 37.8 (34.0-46.0) % MCV 84.1 (80.0-100.0) fL MCH 26.7 (25.0-35.0) pg MCHC 31.8 (31.0-37.0) g/dL RDW 17.0 H (11.5-15.5) % Plt Count 164 (150-450) k/uL MPV 9.1 Neutrophils % 62 % Lymphocytes % 29 % Monocytes % 7 % Eosinophils % 0 % Basophils % 0 % Neutrophils # 4.8 (1.3-7.7) k/uL Lymphocytes # 2.2 (1.0-4.8) k/uL Monocytes # 0.5 (0-1.0) k/uL Eosinophils # 0.0 (0-0.7) k/uL Basophils # 0.0 (0-0.2) k/uL Hypochromasia Moderate Anisocytosis Slight PT 10.9 (10.0-12.5) sec INR 1.0 (<1.2) APTT 29.1 (22.0-30.0) sec Sodium 139 (137-145) mmol/L Potassium 5.3 H (3.5-5.1) mmol/L Chloride 108 H (98-107) mmol/L Carbon Dioxide 25 (22-30) mmol/L Anion Gap 6 mmol/L BUN 17 (7-17) mg/dL Creatinine 0.55 (0.52-1.04) mg/dL Est GFR (CKD-EPI)AfAm >90 (>60 ml/min/1.73 sqM) Est GFR (CKD-EPI)NonAf >90 (>60 ml/min/1.73 sqM) Glucose 195 H (74-99) mg/dL Calcium 9.1 (8.4-10.2) mg/dL Magnesium 1.3 L (1.6-2.3) mg/dL Total Bilirubin 1.0 (0.2-1.3) mg/dL AST 46 H (14-36) U/L ALT 18 (4-34) U/L Alkaline Phosphatase 89 (38-126) U/L Troponin I (0.000-0.034) ng/mL Total Protein 6.9 (6.3-8.2) g/dL Albumin 4.0 (3.5-5.0) g/dL 12/02/23 Range/Units 13:32 WBC (3.8-10.6) k/uL RBC (3.80-5.40) m/uL Hgb (11.4-16.0) gm/dL Hct (34.0-46.0) % MCV (80.0-100.0) fL MCH (25.0-35.0) pg MCHC (31.0-37.0) g/dL RDW (11.5-15.5) % Plt Count (150-450) k/uL MPV Neutrophils % % Lymphocytes % % Monocytes % % Eosinophils % % Basophils % % Neutrophils # (1.3-7.7) k/uL Lymphocytes # (1.0-4.8) k/uL Monocytes # (0-1.0) k/uL Eosinophils # (0-0.7) k/uL Basophils # (0-0.2) k/uL Hypochromasia Anisocytosis PT (10.0-12.5) sec INR (<1.2) APTT (22.0-30.0) sec Sodium (137-145) mmol/L Potassium (3.5-5.1) mmol/L Chloride (98-107) mmol/L Carbon Dioxide (22-30) mmol/L Anion Gap mmol/L BUN (7-17) mg/dL Creatinine (0.52-1.04) mg/dL Est GFR (CKD-EPI)AfAm (>60 ml/min/1.73 sqM) Est GFR (CKD-EPI)NonAf (>60 ml/min/1.73 sqM) Glucose (74-99) mg/dL Calcium (8.4-10.2) mg/dL Magnesium (1.6-2.3) mg/dL Total Bilirubin (0.2-1.3) mg/dL AST (14-36) U/L ALT (4-34) U/L Alkaline Phosphatase (38-126) U/L Troponin I 1.540 H* (0.000-0.034) ng/mL Total Protein (6.3-8.2) g/dL Albumin (3.5-5.0) g/dL Critical Care Time Critical Care Time: Yes Total Critical Care Time: 35 Disposition Clinical Impression: NSTEMI (non-ST elevated myocardial infarction) Disposition: ADMITTED IP TO THIS [facility] Referrals: Nonstaff,Physician [REFERRING] - 1-2 days Time of Disposition: 15:18
[2023-12-02] MEDS: NITROGLYCERIN OINT 1 INCH/GM PACKET TOPICAL STA (13:29)
[2023-12-02] MEDS: ASPIRIN 81 MG PO STA (13:29)
[2023-12-02 13:45] LABS: Anisocytosis Slight; Basophils % (A) 0 %; Eosinophils % (A) 0 %; HCT 37.8 % (34.0-46.0); Hypochromasia Moderate; Lymphocytes # (A) 2.2 k/uL (1.0-4.8); Lymphocytes % (A) 29 %; MCH 26.7 pg (25.0-35.0); MCHC 31.8 g/dL (31.0-37.0); MCV 84.1 fL (80.0-100.0); Mean Platelet Volume 9.1; Monocytes # (A) 0.5 k/uL (0-1.0); Monocytes % (A) 7 %; Neutrophils # (A) 4.8 k/uL (1.3-7.7); Neutrophils % (A) 62 %; Platelet Count 164 k/uL (150-450); WBC 7.7 k/uL (3.8-10.6)
[2023-12-02 13:55] LABS: ALT 18 U/L (4-34); African American GFR (CKD) >90 (>60 ml/min/1.73 sqM); Anion Gap 6 mmol/L; Blood Urea Nitrogen 17 mg/dL (7-17); Calcium 9.1 mg/dL (8.4-10.2); Carbon Dioxide 25 mmol/L (22-30); Chloride 108 mmol/L (98-107); Glucose 195 mg/dL (74-99); Non-African American GFR(CKD) >90 (>60 ml/min/1.73 sqM); Sodium 139 mmol/L (137-145)
--- NOTE | 2023-12-02 13:55 | XR ---
EXAMINATION TYPE: XR chest 2V DATE OF EXAM: 12/02/2023 COMPARISON: 05/28/2023 TECHNIQUE: PA and lateral views submitted. HISTORY: Pain FINDINGS: The lungs are clear and there is no pneumothorax, pleural effusion, or focal pneumonia. Heart size normal and no overt failure. Osseous structures demonstrate hypertrophic and degenerative changes of the spine. Cardiac device noted. Arthropathy of the shoulders. Limited inspiration. Stimulator device and lead partially included in the [id number]. IMPRESSION: 1. No acute process.
[2023-12-02 14:07] LABS: Magnesium 1.3 mg/dL (1.6-2.3); Potassium 5.3 mmol/L (3.5-5.1)
[2023-12-02 14:08] LABS: AST 46 U/L (14-36); Alkaline Phosphatase 89 U/L (38-126); Total Protein 6.9 g/dL (6.3-8.2)
[2023-12-02 14:10] LABS: Partial Thromboplastin Time 29.1 sec (22.0-30.0); Prothrombin Time 10.9 sec (10.0-12.5)
[2023-12-02] MEDS: HEPARIN SODIUM 1,000 UN/ML (10ML VL) IV ONE (14:52)
[2023-12-02] MEDS: HEPARIN SOD,PORK IN 0.45% NACL 25,000 UNIT in 0.45% NACL 1 250ML.BAG IV SCH (14:53)
[2023-12-02] MEDS: MAGNESIUM SULFATE-D5W PMX 1 GM in DEXTROSE/WATER 1 100ML.BAG IVPB SCH (14:54)
[2023-12-02] MEDS: METOPROLOL TARTRATE 5 MG/5 ML VIAL IVP STA (14:59)
[2023-12-02] MEDS: METOPROLOL TARTRATE 25 MG TAB PO STA (15:06)
[2023-12-02] MEDS: ATORVASTATIN 40 MG TAB PO SCH (15:06)
[2023-12-02] MEDS ORDERED: NITROGLYCERIN SL TABS 0.4 MG TAB SUBLINGUAL PRN (15:18)
[2023-12-02] MEDS: ATORVASTATIN 80 MG TAB PO STA (15:32)
[2023-12-02] MEDS ORDERED: DEXTROSE 50% SYRINGE 50 ML IVP PRN ×2 (15:39)
--- NOTE | 2023-12-02 15:40 | P.HPIM ---
History of Present Illness H&P Date: 12/02/23 Patient is a 73-year-old female with multivessel coronary artery disease, hypertension, dementia, dyslipidemia, hypothyroidism, insulin-dependent diabetes presenting with chest pain and hypertension. Patient is a poor historian. at bedside. They claimed that she has been experiencing chest pain for few days and some left arm palpitations as well. They checked her blood pressur e and it was elevated and difficult to control which is why she was recommended by her physician to come to the ER for further evaluation. She denies any shortness of breath, lightheadedness, abdominal pain, urinary or bowel complaints. She uses a walker to ambulate. She lives with her at home. Denies any smoking or alcohol use. In the ED, temperature was 97.9, pulse 86, respiratory rate 18, blood pressure 197/114, saturating at 97% on room air. CBC showed hemoglobin of 12, potassium hemolyzed at 5.3, creatinine 0.55, magnesium 1.3, glucose 195, troponin 1.54. Chest x-ray independently interpreted, shows pacemaker in place, EKG independently interpreted, shows ST elevation in V2, Q waves in inferior and anterior/septal leads, nonspecific ST-T wave changes. Patient started on heparin drip. Cardiology consulted. Pertinent positives and negatives as discussed in HPI, a complete review of systems was performed and all other systems are negative. Patient seen and examined at bedside. Vital signs reviewed General: nontoxic, no distress, appears at stated age Derm: warm, dry Head: atraumatic, normocephalic, symmetric Eyes: EOMI, no lid lag, anicteric sclera, pupils equal round reactive to light ENT: Nose and ears atraumatic Neck: No thyromegaly, supple Mouth: no lip lesion, mucus membranes moist Cardiovascular: S1S2 reg, no murmur, no edema Lungs: clear to auscultation bilateral, no rhonchi, no rales, no wheeze, no accessory muscle use Abdominal: soft, nontender to palpation, no guarding, no appreciable organomegaly Ext: no gross muscle atrophy, muscle strength muscle strength 5 out of 5 in all 4 extremities, no contractures Neuro: CN II-XII grossly intact Psych: Alert, oriented x 2, appropriate affect Assessment/Plan: Active: Acute NSTEMI Multivessel coronary artery disease -Aspirin 324 given, started on heparin drip, monitor APTT and daily CBC -Continue to trend troponin -Continue telemetry -Cardiology consulted -Patient was previously evaluated by cardiothoracic surgery, and recommended that patient is not an ideal candidate for CABG due to her history of dementia -Repeat echocardiogram -Continue aspirin 81 mg, atorvastatin 40 mg daily -Also on nitroglycerin patch 1 inch every 6 hours Uncontrolled hypertension -Restart home lisinopril, increase to 10 mg daily -Needs further afterload reduction -On nitroglycerin patch Insulin-dependent diabetes -Continue sliding scale insulin, monitor for hypoglycemia -Continue home Levemir, decrease to 30 units daily Chronic: Hypothyroidism Dementia Neuropathy The patient is admitted with an anticipated greater than 2 midnight stay as inpatient status for evaluation of acute NSTEMI. Surrogate decision-maker: Spouse CODE STATUS: DNR/DNI DVT prophylaxis: Heparin drip Anticipated discharge date: Pending clinical course Anticipated discharge place: Pending clinical course A total of 55 minutes was spent on the care of this complex patient more than 50% of the time was spent in counseling and care coordination. 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 Occasional dizziness. Normal pressure hydrocephalus - has shunt. Neuropathy bilateral feet/toes, chronic back pain, IBS, narcolepsy, gout. Last Myocardial Infarction Date:: 12/27/19 History of Any Multi-Drug Resistant Organisms: None Reported Past Surgical History: Back Surgery, EPS, Heart Catheterization With Stent, Joint Replacement, Orthopedic Surgery, Pacemaker, Tubal Ligation Additional Past Surgical History / Comment(s): 4 cardiac stents, low back surgery, brain shunt, colonoscopy, total left knee replacement, permanent pacemaker placement, got infected and removed and then replaced. Past Anesthesia/Blood Transfusion Reactions: Motion Sickness, Postoperative Nausea & Vomiting (PONV) Date of Last Stent Placement:: 12/27/19 Type of Cardiac Device: Permanent Pacemaker Device Placement Date:: MAR 2020 Past Psychological History: Anxiety Smoking Status: Never smoker Past Alcohol Use History: None Reported Past Drug Use History: None Reported - Past Family History Father History Unknown: Yes Family Medical History: Congestive Heart Failure (CHF), Hypertension, Myocardial Infarction ([place]) Mother History Unknown: Yes Family Medical History: Congestive Heart Failure (CHF), Hypertension, Myocardial Infarction ([place]) Brother(s) Family Medical History: Cancer, Myocardial Infarction ([place]) Additional Family Medical History / Comment(s): One brother had an [place]. Another brother had prostate cancer. Medications and Allergies Home Medications Medication Instructions Recorded Confirmed Type DULoxetine HCL [Cymbalta] 60 mg PO BID 12/27/19 12/02/23 History Atorvastatin Calcium [Lipitor] 40 mg PO DAILY 09/24/22 12/02/23 History Donepezil [Aricept] 10 mg PO DAILY 09/24/22 12/02/23 History Insulin Detemir [Levemir Flexpen] 52 units SQ DAILY 09/24/22 12/02/23 History Omeprazole [PriLOSEC] 20 mg PO DAILY 09/24/22 12/02/23 History oxyBUTYnin chloride [Ditropan XL] 10 mg PO DAILY 09/24/22 12/02/23 History Aspirin 81 mg PO DAILY tab 09/27/22 12/02/23 Rx Gabapentin [Neurontin] 300 mg PO BID #24 cap 09/27/22 12/02/23 Rx Levothyroxine Sodium [Synthroid] 112 mcg PO DAILY 06/18/23 12/02/23 History Colchicine 1.2 mg PO DAILY 12/02/23 12/02/23 History Meclizine [Antivert] 12.5 - 25 mg PO BID 12/02/23 12/02/23 History Metoprolol Tartrate [Lopressor] 25 mg PO BID 12/02/23 12/02/23 History lisinopriL 2.5 mg PO DAILY 12/02/23 12/02/23 History Allergies Allergy/AdvReac Type Severity Reaction Status Date / Time Penicillins Allergy Rash/Hives Verified 12/02/23 15:10 Physical Exam Vitals: Vital Signs Temp Pulse Resp BP Pulse Ox 12/02/23 14:50 73 18 166/92 99 12/02/23 13:02 97.9 F 86 18 197/114 97 Intake and Output 12/01/23 12/02/23 12/02/23 22:59 06:59 14:59 Other: Weight 125.645 kg Results CBC & Chem 7: 12/02/23 13:32 12/02/23 13:32 Labs: Abnormal Lab Results - Last 24 Hours (Table) 12/02/23 12/02/23 12/02/23 Range/Units 13:32 13:32 13:32 RDW 17.0 H (11.5-15.5) % Potassium 5.3 H (3.5-5.1) mmol/L Chloride 108 H (98-107) mmol/L Glucose 195 H (74-99) mg/dL Magnesium 1.3 L (1.6-2.3) mg/dL AST 46 H (14-36) U/L Troponin I 1.540 H* (0.000-0.034) ng/mL
[2023-12-02] MEDS: lisinopriL 10 MG TAB PO SCH (16:11)
[2023-12-02 17:56] LABS: Glucose,Whole Blood 174 mg/dL (70-110)
[2023-12-02] MEDS: INSULIN ASPART (NovoLOG) 100 UNIT/ML VIAL SQ SCH (18:12)
[2023-12-02] MEDS: NITROGLYCERIN OINT 1 INCH/GM PACKET TOPICAL SCH (18:12)
[2023-12-02 21:04] LABS: Glucose,Whole Blood 155 mg/dL (70-110)
[2023-12-02] MEDS: GABAPENTIN 300 MG CAP PO SCH (21:13)
[2023-12-02] MEDS: DULoxetine HCL 60 MG CAPSULE.DR PO SCH (21:13)
[2023-12-02] MEDS: METOPROLOL TARTRATE 25 MG TAB PO SCH (21:14)
[2023-12-03 06:41] LABS: Anisocytosis Slight; Basophils % (A) 0 %; Eosinophils % (A) 0 %; HCT 40.6 % (34.0-46.0); Hypochromasia Moderate; Lymphocytes # (A) 3.2 k/uL (1.0-4.8); Lymphocytes % (A) 32 %; MCH 27.1 pg (25.0-35.0); MCHC 32.1 g/dL (31.0-37.0); MCV 84.6 fL (80.0-100.0); Monocytes # (A) 0.5 k/uL (0-1.0); Monocytes % (A) 5 %; Neutrophils # (A) 6.3 k/uL (1.3-7.7); Neutrophils % (A) 61 %; Platelet Count 182 k/uL (150-450); RDW 17.2 % (11.5-15.5); WBC 10.2 k/uL (3.8-10.6)
[2023-12-03] MEDS: LEVOTHYROXINE 112 MCG TAB PO SCH (06:45)
[2023-12-03 07:21] LABS: ALT 17 U/L (4-34); AST 35 U/L (14-36); African American GFR (CKD) 78 (>60 ml/min/1.73 sqM); Albumin 3.9 g/dL (3.5-5.0); Alkaline Phosphatase 106 U/L (38-126); Anion Gap 8 mmol/L; Blood Urea Nitrogen 22 mg/dL (7-17); Calcium 9.4 mg/dL (8.4-10.2); Carbon Dioxide 25 mmol/L (22-30); Chloride 107 mmol/L (98-107); Glucose 168 mg/dL (74-99); Magnesium 1.7 mg/dL (1.6-2.3); Non-African American GFR(CKD) 68 (>60 ml/min/1.73 sqM); Potassium 3.8 mmol/L (3.5-5.1); Sodium 140 mmol/L (137-145); Total Bilirubin 0.6 mg/dL (0.2-1.3); Total Protein 6.6 g/dL (6.3-8.2)
[2023-12-03 07:21] LABS: Glucose,Whole Blood 145 mg/dL (70-110)
[2023-12-03] MEDS: HEPARIN SODIUM 1,000 UN/ML (10ML VL) IV PRN (07:44)
[2023-12-03] MEDS: ASPIRIN 81 MG PO SCH (08:18)
[2023-12-03] MEDS: CLOPIDOGREL 75 MG TAB PO SCH (08:19)
[2023-12-03] MEDS: INSULIN DETEMIR (LEVEMIR) 100 UNIT/ML SYR SQ SCH (08:19)
[2023-12-03] MEDS: EZETIMIBE 10 MG TAB PO SCH (08:19)
[2023-12-03] MEDS: METOPROLOL TARTRATE 50 MG TAB PO SCH (08:19)
[2023-12-03] MEDS: ATORVASTATIN 80 MG TAB PO SCH (08:19)
[2023-12-03] MEDS: DONEPEZIL 10 MG TAB PO SCH (08:19)
[2023-12-03] MEDS ORDERED: NITROGLYCERIN SL TABS 0.4 MG TAB SUBLINGUAL PRN ×2 (08:54→13:49)
[2023-12-03] MEDS ORDERED: ALPRAZolam 0.25 MG TAB PO PRN (08:54)
[2023-12-03] MEDS ORDERED: NON FORMULARY DRUG (Insulin Detemir [Levemir Flexpen] 100 UNIT/ML Insuln.Pen) SQ SCH (09:00)
[2023-12-03] MEDS ORDERED: ASPIRIN 325 MG TAB PO SCH (09:00)
[2023-12-03] MEDS: ATORVASTATIN 80 MG TAB PO STA (09:04)
[2023-12-03] MEDS: ASPIRIN 325 MG TAB PO STA (09:10)
[2023-12-03] MEDS: ASPIRIN 81 MG PO STA (09:21)
[2023-12-03] MEDS: SODIUM CHLORIDE 0.9% 1,000 ML IV SCH (09:22)
[2023-12-03 09:31] LABS: Chol/HDL Ratio 3.51 Ratio; LDL Cholesterol,Calculated 90.9 mg/dL (0.0-131.0)
--- NOTE | 2023-12-03 10:55 | P.CRDCN ---
History of Present Illness History of present illness: HISTORY OF PRESENT ILLNESS: This is a 73-year-old female with a past medical history significant for hypertension, hyperlipidemia, diabetes, coronary artery disease with multivessel stenting, pacemaker implantation, and CVA/TIA with residual speech impediment. Patient follows in the office with Dr. Ruiz. We have been asked to see the patient in consultation for non-STEMI. Patient examined at the bedside in the emergency room. Patient states she has been having chest discomfort for the past week on and off. She denies any radiation of the pain. She denies any shortness of breath. This morning her pain has resolved but she states that she feels tired. Patient was found to have elevated troponins and was started on IV heparin. Patient's and daughter are at the bedside and updated on patient's condition and plan of care. Patient's daughter also requesting that patient's medications be once a day morning medications if possible as she has an legislative assistant that comes to her house in the morning to help her with morning medications and does not have anyone to handle her medications in the evening and she sometimes forgets to take her nighttime medications. DIAGNOSTICS: - EKG x 4 completed in the ER with dynamic ischemic changes noted. - Chest xray negative for acute process. - Laboratory data: WBC 10.2. Hemoglobin 13.0. Platelet count 182. Sodium 140. Potassium 3.8. BUN 22. Creatinine 0.85. Troponin 1.540. 2.480. 3.580. 2.690. - Current home cardiac medications include aspirin 81 mg daily, Lipitor 40 mg daily, metoprolol tartrate 25 mg twice a day, lisinopril 2.5 mg daily - Most recent echocardiogram obtained in April 2023 revealing ejection fract ion 60 to 65%, mild MR, mild aortic stenosis, mild TR - Cardiac catheterization history: April 2023 revealing severe stenosis in the mid LAD, severe stenosis in proximal left circumflex and OM1, totally occluded right PDA. Patient was evaluated for CABG and found not to be a good surgical candidate. REVIEW OF SYSTEMS: At the time of my exam: CONSTITUTIONAL: Denies fever or chills. HEENT: Denies blurred vision, vision changes, or eye pain. Denies hemoptysis CARDIOVASCULAR: Denies chest pain. Denies orthopnea. Denies PND. Denies palpitations RESPIRATORY: Denies shortness of breath. GASTROINTESTINAL: Denies abdominal pain. Denies nausea or vomiting. HEMATOLOGIC: Denies bleeding disorders. GENITOURINARY: Denies any blood in urine. SKIN: Denies pruitis. Denies rash. PHYSICAL EXAM: VITAL SIGNS: Reviewed. GENERAL: Well-developed in no acute distress. HEENT: Head is normocephalic. Pupils are equal, round. Sclerae anicteric. Mucous membranes of the mouth are moist. Neck supple. No JVD or thyromegaly LUNGS: Respirations even and unlabored. Lungs essentially clear to auscultation bilaterally. HEART: Regular rate and rhythm. S1 and S2 heard. ABDOMEN: Soft. Nondistended. Nontender. EXTREMITIES: Normal range of motion. No clubbing or cyanosis. Peripheral pulses intact. No lower extremity edema NEUROLOGIC: Awake and alert. Oriented x 3. ASSESSMENT: Non-STEMI Coronary artery disease with previous multivessel stenting, deemed not to be a CABG candidiate Hypertension Hyperlipidemia History of CVA/TIA with residual speech impediment History of pacemaker implantation Diabetes PLAN: Obtain 2D echo to assess cardiac structure and function Resume home cardiac medications Add Plavix 75 mg daily Add Zetia 10 mg daily Increase atorvastatin to 80 mg daily Change metoprolol to metoprolol succinate 50 mg daily as patient's family is requesting medications to be once daily if possible Continue IV heparin Patient to undergo cardiac catheterization today with Dr. Ruiz Further recommendations pending patient course Nurse practitioner note has been reviewed by physician. Signing provider agrees with the documented findings, assessment, and plan of care documented by APPRENTICESHIP TRAINING REPRESENTATIVE as a scribe. Past Medical History Past Medical History: Coronary Artery Disease (CAD), Chest Pain / Angina, Heart Failure, CVA/TIA, Dementia, Diabetes Mellitus, GERD/Reflux, Hyperlipidemia, Hypertension, Memory Impairment, Myocardial Infarction (OR), Osteoarthritis (OA), Sleep Apnea/CPAP/BIPAP, Thyroid Disorder Additional Past Medical History / Comment(s): Hx TIA with residual poor strength on right side and slow speech. Occasional dizziness. Normal pressure hydrocephalus - has shunt. Neuropathy bilateral feet/toes, chronic back pain, IBS, narcolepsy, gout. Last Myocardial Infarction Date:: 12/27/19 History of Any Multi-Drug Resistant Organisms: None Reported Past Surgical History: Back Surgery, EPS, Heart Catheterization With Stent, Joint Replacement, Orthopedic Surgery, Pacemaker, Tubal Ligation Additional Past Surgical History / Comment(s): 4 cardiac stents, low back surgery, brain shunt, colonoscopy, total left knee replacement, permanent pacemaker placement, got infected and removed and then replaced. Past Anesthesia/Blood Transfusion Reactions: Motion Sickness, Postoperative Nausea & Vomiting (PONV) Date of Last Stent Placement:: 12/27/19 Type of Cardiac Device: Permanent Pacemaker Device Placement Date:: MAR 2020 Past Psychological History: Anxiety Smoking Status: Never smoker Past Alcohol Use History: None Reported Past Drug Use History: None Reported - Past Family History Father History Unknown: Yes Family Medical History: Congestive Heart Failure (CHF), Hypertension, Myocardial Infarction (OR) Mother History Unknown: Yes Family Medical History: Congestive Heart Failure (CHF), Hypertension, Myocardial Infarction (OR) Brother(s) Family Medical History: Cancer, Myocardial Infarction (OR) Additional Family Medical History / Comment(s): One brother had an OR. Another brother had prostate cancer. Medications and Allergies Home Medications Medication Instructions Recorded Confirmed Type DULoxetine HCL [Cymbalta] 60 mg PO BID 12/27/19 12/02/23 History Atorvastatin Calcium [Lipitor] 40 mg PO DAILY 09/24/22 12/02/23 History Donepezil [Aricept] 10 mg PO DAILY 09/24/22 12/02/23 History Insulin Detemir [Levemir Flexpen] 52 units SQ DAILY 09/24/22 12/02/23 History Omeprazole [PriLOSEC] 20 mg PO DAILY 09/24/22 12/02/23 History oxyBUTYnin chloride [Ditropan XL] 10 mg PO DAILY 09/24/22 12/02/23 History Aspirin 81 mg PO DAILY tab 09/27/22 12/02/23 Rx Gabapentin [Neurontin] 300 mg PO BID #24 cap 09/27/22 12/02/23 Rx Levothyroxine Sodium [Synthroid] 112 mcg PO DAILY 06/18/23 12/02/23 History Colchicine 1.2 mg PO DAILY 12/02/23 12/02/23 History Meclizine [Antivert] 12.5 - 25 mg PO BID 12/02/23 12/02/23 History Metoprolol Tartrate [Lopressor] 25 mg PO BID 12/02/23 12/02/23 History lisinopriL 2.5 mg PO DAILY 12/02/23 12/02/23 History Allergies Allergy/AdvReac Type Severity Reaction Status Date / Time Penicillins Allergy Rash/Hives Verified 12/02/23 15:10 Physical Exam Vitals: Vital Signs Temp Pulse Resp BP Pulse Ox 12/03/23 10:01 97.9 F 60 18 123/77 98 12/03/23 09:02 65 14 135/78 97 12/03/23 08:00 81 18 96 12/03/23 07:45 97.7 F 79 16 122/79 97 12/03/23 00:00 84 16 119/80 97 12/02/23 22:00 71 16 125/82 94 L 12/02/23 20:00 74 16 128/80 95 12/02/23 18:00 83 17 135/88 98 12/02/23 16:07 80 18 166/104 98 12/02/23 14:50 73 18 166/92 99 12/02/23 13:02 97.9 F 86 18 197/114 97 Intake and Output 12/02/23 12/03/23 12/03/23 22:59 06:59 14:59 Intake Total 77.833 0 50.263 Balance 77.833 0 50.263 Intake: Intake, IV Titration 77.833 0 50.263 Amount Heparin Sod,Pork in 0.45% 77.833 0 50.263 NaCl 25,000 unit In 0.45 % NaCl 1 250ml.bag @ 7. 959 UNITS/KG/HR 10 mls/hr IV .Q24H [facility] Rx#: [id number] Results 12/03/23 06:31 12/03/23 06:31 Cardiac Enzymes 12/02/23 12/02/23 12/02/23 Range/Units 13:32 13:32 16:23 AST 46 H (14-36) U/L Troponin I 1.540 H* 2.480 H* (0.000-0.034) ng/mL 12/02/23 12/03/23 12/03/23 Range/Units 19:54 06:31 08:07 AST 35 (14-36) U/L Troponin I 3.580 H* 2.690 H* (0.000-0.034) ng/mL Coagulation 12/02/23 12/02/23 12/03/23 Range/Units 13:32 21:55 06:31 PT 10.9 (10.0-12.5) sec APTT 29.1 95.1 H 39.4 H (22.0-30.0) sec Lipids 12/03/23 Range/Units 04:00 Triglycerides 139.00 (0.00-149.00) mg/dL Cholesterol 166.00 (0.00-200.00) mg/dL HDL Cholesterol 47.30 (40.00-60.00) mg/dL Cholesterol/HDL Ratio 3.51 Ratio CBC 12/02/23 12/03/23 Range/Units 13:32 06:31 WBC 7.7 10.2 (3.8-10.6) k/uL RBC 4.50 4.80 (3.80-5.40) m/uL Hgb 12.0 13.0 (11.4-16.0) gm/dL Hct 37.8 40.6 (34.0-46.0) % Plt Count 164 182 (150-450) k/uL Comprehensive Metabolic Panel 12/02/23 12/03/23 Range/Units 13:32 06:31 Sodium 139 140 (137-145) mmol/L Potassium 5.3 H 3.8 (3.5-5.1) mmol/L Chloride 108 H 107 (98-107) mmol/L Carbon Dioxide 25 25 (22-30) mmol/L BUN 17 22 H (7-17) mg/dL Creatinine 0.55 0.85 (0.52-1.04) mg/dL Glucose 195 H 168 H (74-99) mg/dL Calcium 9.1 9.4 (8.4-10.2) mg/dL AST 46 H 35 (14-36) U/L ALT 18 17 (4-34) U/L Alkaline Phosphatase 89 106 (38-126) U/L Total Protein 6.9 6.6 (6.3-8.2) g/dL Albumin 4.0 3.9 (3.5-5.0) g/dL Current Medications Generic Name Dose Route Start Last Admin Trade Name Freq PRN Reason Stop Dose Admin Alprazolam 0.25 mg 12/03/23 08:54 Alprazolam 0.25 Mg Tab PO Q6HR PRN Mild Anxiety Alprazolam 0.5 mg 12/03/23 08:54 Alprazolam 0.5 Mg Tab PO Q6HR PRN Moderate Anxiety Aspirin 81 mg 12/03/23 09:00 12/03/23 08:18 Aspirin 81 Mg PO 81 mg DAILY FRANCISCO Administration Atorvastatin Calcium 80 mg 12/03/23 09:00 12/03/23 08:19 Atorvastatin 80 Mg Tab PO 80 mg DAILY [facility] Administration Clopidogrel Bisulfate 75 mg 12/03/23 09:00 12/03/23 08:19 Clopidogrel 75 Mg Tab PO 75 mg DAILY [facility] Administration Dextrose/Water 25 ml 12/02/23 15:39 Dextrose 50% Syringe 50 Ml IVP PER PROTOCOL PRN Hypoglycemia Protocol Dextrose/Water 50 ml 12/02/23 15:39 Dextrose 50% Syringe 50 Ml IVP PER PROTOCOL PRN Hypoglycemia Protocol Donepezil HCl 10 mg 12/03/23 09:00 12/03/23 08:19 Donepezil 10 Mg Tab PO 10 mg DAILY [facility]CO Administration Duloxetine HCl 60 mg 12/02/23 21:00 12/03/23 08:19 Duloxetine Hcl 60 Mg Capsule.Dr PO 60 mg BID FR[facility]ISCO Administration Ezetimibe 10 mg 12/03/23 09:00 12/03/23 08:19 Ezetimibe 10 Mg Tab PO 10 mg DAILY [facility] Administration Gabapentin 300 mg 12/02/23 21:00 12/03/23 08:19 Gabapentin 300 Mg Cap PO 300 mg BID FR[facility]ISCO Administration Heparin Sodium (Porcine) 0 unit 12/03/23 07:35 12/03/23 07:44 Heparin Sodium 1,000 Un/Ml (10ml Vl) IV 3,125 unit PER PROTOCOL PRN Administration Low PTT Protocol Heparin Sodium/Sodium Chloride 250 mls @ 10 mls/hr 12/02/23 14:15 12/03/23 07:44 25,000 unit/ Sodium Chloride IV 6.959 units/kg/hr .Q24H [facility] 8.744 mls/hr Titration Protocol 7.959 UNITS/KG/HR Heparin Sodium (Porcine) 10, 1,001 mls @ 999 mls/hr 12/04/23 07:00 000 unit/ Sodium Chloride IRRIGATION 12/04/23 23:00 ONCE PRN INTRA-OP Heparin Sodium (Porcine) 2,500 250.5 mls @ 250 mls/hr 12/04/23 07:00 unit/ Sodium Chloride IRRIGATION 12/04/23 23:00 ONCE PRN INTRA-OP Sodium Chloride 1,000 ml/ IV 1,000 mls @ 125.645 mls/hr 12/03/23 09:00 Solution IV .[id number] FR[facility]ISCO 1 ML/KG/HR Sodium Chloride 1,000 mls @ 75 mls/hr 12/03/23 09:15 12/03/23 09:22 Saline 0.9% IV 75 mls/hr .[id number] [facility] Administration Insulin Aspart 0 unit 12/02/23 17:30 12/03/23 07:38 Insulin Aspart (Novolog) 100 Unit/Ml Vial SQ Not Given ACHS [facility] Protocol Insulin Detemir 30 unit 12/03/23 09:00 12/03/23 08:19 Insulin Detemir (Levemir) 100 Unit/Ml Syr SQ 30 unit DAILY [facility] Administration Levothyroxine Sodium 112 mcg 12/03/23 06:30 12/03/23 06:45 Levothyroxine 112 Mcg Tab PO 112 mcg DAILY@0630 [facility] Administration Lisinopril 2.5 mg 12/03/23 09:00 12/03/23 08:19 Lisinopril 2.5 Mg Tab PO 2.5 mg DAILY [facility] Administration Metoprolol Succinate 50 mg 12/04/23 09:00 Metoprolol Succinate (Er) 50 Mg Tab.Er.24h PO DAILY [facility] Nitroglycerin 1 inch 12/02/23 18:00 12/03/23 06:47 Nitroglycerin Oint 1 Inch/Gm Packet TOPICAL 1 inch Q6HR [facility] Administration Nitroglycerin 0.4 mg 12/03/23 08:54 Nitroglycerin Sl Tabs 0.4 Mg Tab SUBLINGUAL Q5M PRN Chest Pain Intake and Output 12/02/23 12/03/23 12/03/23 22:59 06:59 14:59 Intake Total 77.833 0 50.263 Balance 77.833 0 50.263 Intake: Intake, IV Titration 77.833 0 50.263 Amount Heparin Sod,Pork in 0.45% 77.833 0 50.263 NaCl 25,000 unit In 0.45 % NaCl 1 250ml.bag @ 7. 959 UNITS/KG/HR 10 mls/hr IV .Q24H [facility] Rx#: [id number] 12/03/23 06:31 12/03/23 06:31
[2023-12-03] MEDS: SODIUM CHLORIDE 0.9% 1,000 ML IV ONE (12:05)
[2023-12-03] MEDS: HEPARIN SODIUM,PORCINE (1 ML) 2,500 UNIT in SODIUM CHLORIDE 0.9% 250 ML IRRIGATION PRN (12:05)
[2023-12-03] MEDS: HEPARIN SODIUM,PORCINE 10,000 UNIT in SODIUM CHLORIDE 0.9% 1,000 ML IRRIGATION PRN (12:05)
[2023-12-03] MEDS ORDERED: fentaNYL (PF) 50 MCG/ML 2 ML AMP ONE (12:07)
[2023-12-03] MEDS ORDERED: HEPARIN SODIUM 1,000 UN/ML (10ML VL) ONE (12:07)
[2023-12-03] MEDS: fentaNYL (PF) 50 MCG/ML 2 ML AMP IVP ONE (12:32)
[2023-12-03] MEDS: LIDOCAINE 1% INJ 10MG/ML (20 ML MDV) SQ ONE (12:37)
--- NOTE | 2023-12-03 12:47 | CA ---
Transthoracic Echo Report Name: Luciana Granados Age: 73 Gender: F : 1950 Exam Date: 12/03/2023 09:07 Exam Location: [place] Echo Ht (in): 68 Wt (lb): 277 Ordering Physician: Dipesh Wang MD Attending/Referring Phys: Education Department Registrar Edna Smith RDCS Procedure CPT: Indications: nstemi Cardiac Hx: CAD, DM, CVA, MA, PACEMAKER Technical Quality: Good Contrast 1: Total Dose (mL): Contrast 2: Total Dose (mL): MEASUREMENTS (Male / Female) Normal Values 2D ECHO LV Diastolic Diameter PLAX 3.7 cm 4.2 - 5.9 / 3.9 - 5.3 cm LV Systolic Diameter PLAX 2.9 cm IVS Diastolic Thickness 1.3 cm 0.6 - 1.0 / 0.6 - 0.9 cm LVPW Diastolic Thickness 1.2 cm 0.6 - 1.0 / 0.6 - 0.9 cm LV Relative Wall Thickness 0.7 RV Internal Dim ED PLAX 3.0 cm LA Systolic Diameter LX 2.8 cm 3.0 - 4.0 / 2.7 - 3.8 cm LV Diastolic Volume MOD 4C 81.9 cm??? LV Systolic Volume MOD 4C 44.9 cm??? LV Ejection Fraction MOD 4C 45.2 % LV Cardiac Index MOD 4C 955.4 cm???/min???m??? LV Diastolic Length 4C 8.3 cm LV Systolic Length 4C 7.6 cm LV Diastolic Volume MOD 2C 80.3 cm??? LV Systolic Volume MOD 2C 35.8 cm??? LV Ejection Fraction MOD 2C 55.5 % LV Cardiac Index MOD 2C 1150.8 cm???/min???m??? LV Diastolic Length 2C 7.5 cm LV Systolic Length 2C 6.7 cm LA Volume 48.8 cm??? 18 - 58 / 22 - 52 cm??? LA Volume Index 19.4 cm???/m??? 16 - 28 cm???/m??? M-MODE Aortic Root Diameter MM 2.9 cm AV Cusp Separation MM 1.9 cm DOPPLER AV Peak Velocity 169.9 cm/s AV Peak Gradient 11.5 mmHg AV Mean Velocity 131.6 cm/s AV Mean Gradient 7.8 mmHg AV Velocity Time Integral 41.3 cm MV Area PHT 3.0 cm??? Mitral E Point Velocity 67.5 cm/s Mitral A Point Velocity 119.0 cm/s Mitral E to A Ratio 0.6 MV Deceleration Time 256.8 ms TR Peak Velocity 172.1 cm/s TR Peak Gradient 11.9 mmHg Right Ventricular Systolic Press 18.1 mmHg FINDINGS Left Ventricle Left ventricular ejection fraction is estimated at 40 %. Small left ventricular cavity. Mildly increased septal wall thickness. Mildly increased posterior wall thickness. Hypokinesia involving the mid to distal septum and adjoining anteroapical wall. Possibility of apical ballooning syndrome should be considered Right Ventricle Normal right ventricular size and function. Right ventricular systolic pressure within normal limits. Right Atrium Normal right atrial size. No spontaneous contrast in the right atrium. Left Atrium Mildly increased left atrial area. No left atrial thrombus or mass present. Mitral Valve Mitral valve thickened. Mild mitral annular calcification. No mitral stenosis, regurgitation or prolapse. Aortic Valve Trileaflet aortic valve. No aortic valve stenosis or regurgitation. Tricuspid Valve Structurally normal tricuspid valve. Mild tricuspid regurgitation. Pulmonic Valve Structurally normal pulmonic valve. No pulmonic regurgitation. Pericardium No pericardial or pleural effusion. Aorta Normal size aortic root and proximal ascending aorta. CONCLUSIONS At LV size is normal with mild to moderate concentric LVH. The base of the left ventricle contracts well there is apical hypokinesia consider apical ballooning syndrome. There is mild mitral and tricuspid regurgitation no pulmonary hypertension Previewed by: Dr. Ria Santiago MD (Electronically Signed) Final Date: 03 December 2023 12:46
[2023-12-03] MEDS: HEPARIN SODIUM 1,000 UN/ML (10ML VL) IV ONE (12:49)
[2023-12-03] MEDS ORDERED: CLOPIDOGREL 75 MG TAB ONE (12:49)
[2023-12-03] MEDS: CLOPIDOGREL 75 MG TAB PO ONE (12:51)
[2023-12-03] MEDS: IOPAMIDOL-370 100ML BTL INJ ONE (13:01)
--- NOTE | 2023-12-03 13:38 | P.PN ---
Subjective Progress Note Date: 12/03/23 Hospital Course: 73-year-old female with multivessel coronary artery disease, hypertension, dem entia, dyslipidemia, hypothyroidism, insulin-dependent diabetes presenting with chest pain and hypertension. In the ED, temperature was 97.9, pulse 86, respiratory rate 18, blood pressure 197/114, saturating at 97% on room air. CBC showed hemoglobin of 12, potassium hemolyzed at 5.3, creatinine 0.55, magnesium 1.3, glucose 195, troponin 1.54. Chest x-ray independently interpreted, shows pacemaker in place, EKG independently interpreted, shows ST elevation in V2, Q waves in inferior and anterior/septal leads, nonspecific ST-T wave changes. Patient started on heparin drip. Cardiology consulted. Patient to undergo cardiac cath. Echocardiogram shows normal LV size, hypokinesia of apex, mild mitral and tricuspid regurgitation. Troponins peaked at 3.58. Subjective: Patient seen and examined at bedside. No acute events overnight. Pertinent positives and negatives as discussed above, a complete review of systems was performed and all other systems are negative. Vitals Signs Reviewed. General: Nontoxic, no distress, appears at stated age Derm: Warm, dry Head: Atraumatic, normocephalic, symmetric Eyes: EOMI, no lid lag, anicteric sclera Mouth: No lip lesion, mucus membranes moist Cardiovascular: S1S2 reg, no murmur Lungs: CTA bilateral, no rhonchi, no rales, no accessory muscle use Abdominal: Soft, nontender to palpation, no guarding, no appreciable organomegaly Ext: No gross muscle atrophy, no edema, no contractures Neuro: CN II-XI grossly intact, no focal neuro deficits Psych: Alert, oriented, appropriate affect Data Reviewed Today: Pertinent Labs: WBC 10.2, hemoglobin 13, platelet 182, creatinine 0.85, potassium 3.8, magnesium 1.7, A1c 8.6, blood sugars range between 1 45-200, troponin peaked at 3.58. LDL 90.9. Imaging: Repeat EKG independently interpreted from this morning, shows evolving infarct in the anterior wall. Echocardiogram showed LVEF of 40%, apical hypokinesia consider apical ballooning syndrome, mild mitral and tricuspid regurgitation. Assessment and Plan: Active: Acute NSTEMI Multivessel coronary artery disease Systolic cardiomyopathy, EF 40% -Continue heparin drip, monitor APTT and daily CBC -Continue telemetry -Cardiology note reviewed, added Plavix 75 mg, increase atorvastatin, metoprolol changed to 50 mg daily, pending cardiac cath -Patient was previously evaluated by cardiothoracic surgery, and recommended that patient is not an ideal candidate for CABG due to her history of dementia -Continue aspirin 81 mg, atorvastatin 40 mg daily -Also on nitroglycerin patch 1 inch every 6 hours Uncontrolled hypertension -Lisinopril changed back to 2.5 by cardiology -On nitroglycerin patch Insulin-dependent diabetes, A1c 8.6 -Continue sliding scale insulin, monitor for hypoglycemia -Continue home Levemir, decrease to 30 units daily Chronic: Hypothyroidism Dementia Neuropathy DVT ppx: Heparin drip Code status: DNR/DNI Anticipated discharge place: Pending clinical course Anticipated discharge time: Pending clinical course Objective - Vital Signs Vital signs: Vital Signs Temp 98.3 F 12/03/23 11:40 Pulse 60 12/03/23 11:40 Resp 14 12/03/23 11:40 BP 117/72 12/03/23 11:40 Pulse Ox 97 12/03/23 11:40 FiO2 Intake & Output 12/02/23 12/03/23 12/03/23 18:59 06:59 18:59 Intake Total 77.833 50.263 Balance 77.833 50.263 Weight 125.645 kg Intake: Intake, IV Titration 77.833 50.263 Amount Heparin Sod,Pork in 0.45% 77.833 50.263 NaCl 25,000 unit In 0.45 % NaCl 1 250ml.bag @ 7. 959 UNITS/KG/HR 10 mls/hr IV .Q24H [facility] Rx#: [id number] - Labs CBC & Chem 7: 12/03/23 06:31 12/03/23 06:31 Labs: Abnormal Lab Results - Last 24 Hours (Table) 12/02/23 12/02/23 12/02/23 Range/Units 13:32 13:32 13:32 RDW 17.0 H (11.5-15.5) % APTT (22.0-30.0) sec Potassium 5.3 H (3.5-5.1) mmol/L Chloride 108 H (98-107) mmol/L BUN (7-17) mg/dL Glucose 195 H (74-99) mg/dL POC Glucose (mg/dL) (70-110) mg/dL Hemoglobin A1c (<=6.0) % Magnesium 1.3 L (1.6-2.3) mg/dL AST 46 H (14-36) U/L Troponin I 1.540 H* (0.000-0.034) ng/mL 12/02/23 12/02/23 12/02/23 Range/Units 16:23 17:54 19:54 RDW (11.5-15.5) % APTT (22.0-30.0) sec Potassium (3.5-5.1) mmol/L Chloride (98-107) mmol/L BUN (7-17) mg/dL Glucose (74-99) mg/dL POC Glucose (mg/dL) 174 H (70-110) mg/dL Hemoglobin A1c (<=6.0) % Magnesium (1.6-2.3) mg/dL AST (14-36) U/L Troponin I 2.480 H* 3.580 H* (0.000-0.034) ng/mL 12/02/23 12/02/23 12/03/23 Range/Units 21:02 21:55 04:00 RDW (11.5-15.5) % APTT 95.1 H (22.0-30.0) sec Potassium (3.5-5.1) mmol/L Chloride (98-107) mmol/L BUN (7-17) mg/dL Glucose (74-99) mg/dL POC Glucose (mg/dL) 155 H (70-110) mg/dL Hemoglobin A1c 8.6 H (<=6.0) % Magnesium (1.6-2.3) mg/dL AST (14-36) U/L Troponin I (0.000-0.034) ng/mL 12/03/23 12/03/23 12/03/23 Range/Units 06:31 06:31 06:31 RDW 17.2 H (11.5-15.5) % APTT 39.4 H (22.0-30.0) sec Potassium (3.5-5.1) mmol/L Chloride (98-107) mmol/L BUN 22 H (7-17) mg/dL Glucose 168 H (74-99) mg/dL POC Glucose (mg/dL) (70-110) mg/dL Hemoglobin A1c (<=6.0) % Magnesium (1.6-2.3) mg/dL AST (14-36) U/L Troponin I (0.000-0.034) ng/mL 12/03/23 12/03/23 Range/Units 07:19 08:07 RDW (11.5-15.5) % APTT (22.0-30.0) sec Potassium (3.5-5.1) mmol/L Chloride (98-107) mmol/L BUN (7-17) mg/dL Glucose (74-99) mg/dL POC Glucose (mg/dL) 145 H (70-110) mg/dL Hemoglobin A1c (<=6.0) % Magnesium (1.6-2.3) mg/dL AST (14-36) U/L Troponin I 2.690 H* (0.000-0.034) ng/mL
[2023-12-03] MEDS ORDERED: RX INFO: IV CONTRAST WAS GIVEN 1 EACH MISC MISCELLANE PRN (13:49)
[2023-12-03] MEDS ORDERED: MAG HYDROX/AL HYDROX/SIMETH 30 ML CUP PO PRN (13:49)
[2023-12-03] MEDS ORDERED: ZOLPIDEM 5 MG TAB PO PRN (13:49)
[2023-12-03] MEDS ORDERED: ATROPINE SULFATE 0.1 MG/ML 10ML SYRINGE IV PRN (13:49)
--- NOTE | 2023-12-03 14:00 | P.CARDCATH ---
Date of Procedure: 12/03/23 Description of Procedure: Cardiac Catheterization: The patient is a 73-year-old female with known history of multivessel disease status post multivessel stenting with significant progression of disease by cardiac catheterization in April 2023, at that time she was felt to be a high risk for CABG and has elected to continue medical therapy versus multivessel stenting. She presented with symptoms of chest discomfort, going on for about a week on and off, on presentation she had T wave inversion anteriorly with troponin elevation consistent with non-STEMI. Recommendations were made regarding cardiac catheterization, the risks and the complications were discussed with the patient who is in full understanding and agreement. 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 Using Xylocaine Anesthesia and modified Seldinger technique, a 6-Canadian sheath was introduced in the right femoral artery . Subsequently, selective coronary angiography was performed using a 6 -Canadian 4 bend right Vivi and 6 Canadian CLS 3.5 guiding catheter. Multiple views of the coronary artery including hemiaxial views were obtained. The 6 Canadian pigtail catheter was used to cross the aortic valve and LVEDP was calculated. PCI: After obtaining images of the LAD with the CLS 3.5 guiding catheter a 0.014 BMW J-wire was advanced in the LAD and positioned distally subsequently a 2.5 x 12 mm trek balloon was advanced and 2 inflation at 10 trevin were done after removing the balloon a [employer] [place] eye IVUS catheter was introduced and images were obtained and revealed a distal diameter of 2.5 to 2.75 mm and proximally 3.5 mm. She had mild calcification. Subsequently a 2.5 x 15 mm NC trek balloon was advanced and 1 inflation at 14 trevin was done. After removing the balloon a 2.75 x 23 mm Xience jean point stent was advanced and deployed at 20 trevin. After removing the balloon repeat IVUS imaging was performed and subsequently a 3.0 x 20 mm NC trek balloon was advanced and 1 inflation at 18 trevin was done and subsequently a 3.5 x 15 mm Xience NC trek balloon was advanced and 2 inflations were done proximally. After removing the wire images were obtained and revealed stable successful stenting. Following that, catheter and sheath were removed. Hemostasis was obtained with deployment of vascular band . There was no immediate complication. Patient was returned to room in stable condition. Of note, the patient received a total of 4500 units of intravenous heparin as well as a loading dose of clopidogrel. She had no chest discomfort but had EKG changes that resolved at the end of the procedure. Her ACT was followed. Findings: Left main: This is a large size vessel, bifurcating into LAD and left circumflex, left main has no obstructive disease LAD: This is a large size vessel, reaching to the apex with a wraparound apex segment giving rise to a large diagonal branch proximally, the stented segment in the diagonal branch is patent with 20 to 30% in-stent restenosis. The stent of the LAD in the midsegment is patent with 30% intimal restenosis. Distal to the stent there is a long area of stenosis up to 95%, the rest of the vessel has no high-grade stenosis. Left circumflex: This is a nondominant vessel, giving rise to 2 obtuse marginal branch. The proximal left circumflex has 85% stenosis. The mid left circumflex prior to the bifurcation of the first obtuse marginal branch has another 70 to 80% stenosis. The first obtuse marginal branch stented segment has an ostial restenosis of 80% and distal to it 90 to 95%. Following the takeoff of the first obtuse marginal branch the stented segment in the AV groove has in-stent restenosis of 70%. RCA: This is a large dominant vessel bifurcating distally to PDA and PLV. The stented segment in the proximal mid and distal RCA are patent with mild intimal restenosis in the midsegment of 40%. The PDA stented segment is chronically occluded with no antegrade flow. Left Ventriculogram: Not performed Hemodynamics: There was no gradient across the aortic valve, LVEDP was 20-22 mmHg Conclusion: 1. Severe stenosis in the LAD distal to the stented segment 2. Severe multiple segment disease in the left circumflex with in-stent restenosis 3. Chronically occluded stented PDA 4. Successful stenting of the mid LAD with reduction of stenosis from 95% to less than 5% with IVUS imaging and RODOLFO-3 flow Recommendations: The patient will continue on aspirin and clopidogrel for 1 year in addition to aggressive coronary risks modification, maintaining LDL below 70 mg/dL. Depending on her progress decision will be made regarding the need to undergo revascularization of the left circumflex understanding the high risk of restenosis in view of her history. The findings and the recommendations were discussed with the patient and the family and they were in full understanding and agreement. Duration of sedation is 57 minutes.
[2023-12-03 15:34] LABS: Glucose,Whole Blood 138 mg/dL (70-110)
[2023-12-03] MEDS: SODIUM CHLORIDE 0.9% 1,000 ML in EMPTY BAG 1 BAG IV SCH ×2 (16:33→17:06)
[2023-12-03 16:50] LABS: Glucose,Whole Blood 134 mg/dL (70-110)
[2023-12-03 19:36] LABS: Glucose,Whole Blood 68 mg/dL (70-110)
[2023-12-04] MEDS: ALPRAZolam 0.5 MG TAB PO PRN
[2023-12-04 05:37] LABS: Glucose,Whole Blood 71 mg/dL (70-110)
[2023-12-04 07:14] LABS: African American GFR (CKD) >90 (>60 ml/min/1.73 sqM); Anion Gap 4 mmol/L; Blood Urea Nitrogen 19 mg/dL (7-17); Calcium 8.9 mg/dL (8.4-10.2); Carbon Dioxide 27 mmol/L (22-30); Chloride 109 mmol/L (98-107); Glucose 97 mg/dL (74-99); Non-African American GFR(CKD) 84 (>60 ml/min/1.73 sqM); Sodium 140 mmol/L (137-145)
[2023-12-04] MEDS: METOPROLOL SUCCINATE (ER) 50 MG TAB.ER.24H PO SCH (09:01)
--- NOTE | 2023-12-04 11:10 | P.PN ---
Subjective HISTORY OF PRESENT ILLNESS: This is a 73-year-old female with a past medical history significant for hypertension, hyperlipidemia, diabetes, coronary artery disease with multivessel stenting, pacemaker implantation, and CVA/TIA with residual speech impediment. Patient follows in the office with Dr. Ruiz. We have been asked to see the patient in consultation for non-STEMI. Patient examined at the bedside in the emergency room. Patient states she has been having chest discomfort for the past week on and off. She denies any radiation of the pain. She denies any shortness of breath. This morning her pain has resolved but she states that she feels tired. Patient was found to have elevated troponins and was started on IV heparin. Patient's and daughter are at the bedside and updated on patient's condition and plan of care. Patient's daughter also requesting that patient's medications be once a day morning medications if possible as she has an teacher assistant that comes to her house in the morning to help her with morning medications and does not have anyone to handle her medications in the evening and she sometimes forgets to take her nighttime medications. DIAGNOSTICS: - EKG x 4 completed in the ER with dynamic ischemic changes noted. - Chest xray negative for acute process. - Laboratory data: WBC 10.2. Hemoglobin 13.0. Platelet count 182. Sodium 140. Potassium 3.8. BUN 22. Creatinine 0.85. Troponin 1.540. 2.480. 3.580. 2.690. - Current home cardiac medications include aspirin 81 mg daily, Lipitor 40 mg daily, metoprolol tartrate 25 mg twice a day, lisinopril 2.5 mg daily - Most recent echocardiogram obtained in April 2023 revealing ejection fraction 60 to 65%, mild MR, mild aortic stenosis, mild TR - Cardiac catheterization history: April 2023 revealing severe stenosis in the mid LAD, severe stenosis in proximal left circumflex and OM1, totally occluded right PDA. Patient was evaluated for CABG and found not to be a good surgical candidate. 12/04/2023 Patient is status post cardiac catheterization with Dr. Ruiz revealing severe stenosis in the LAD distal to the stented segment, severe multiple segment disease in the left circumflex with in-stent restenosis, chronically occluded stented PDA. Patient underwent stenting of the mid LAD. Patient examined this morning at the bedside. Patient currently denies any chest pain or pressure. She denies any shortness of breath. Pressure elevated this morning with a systolic in the 140s. Echocardiogram completed revealing ejection fraction 40%, hypokinesia involving the mid to distal septum and adjoining anterior apical wall, mild MR, mild TR PHYSICAL EXAM: VITAL SIGNS: Reviewed. GENERAL: Well-developed in no acute distress. HEENT: Head is normocephalic. Pupils are equal, round. Sclerae anicteric. Mucous membranes of the mouth are moist. Neck supple. No JVD or thyromegaly LUNGS: Respirations even and unlabored. Lungs essentially clear to auscultation bilaterally. HEART: Regular rate and rhythm. S1 and S2 heard. ABDOMEN: Soft. Nondistended. Nontender. EXTREMITIES: Normal range of motion. No clubbing or cyanosis. Peripheral pulses intact. No lower extremity edema NEUROLOGIC: Awake and alert. Oriented x 3. ASSESSMENT: Non-STEMI Coronary artery disease with previous multivessel stenting, deemed not to be a CABG candidiate Ischemic cardiomyopathy, 40% Hypertension Hyperlipidemia History of CVA/TIA with residual speech impediment History of pacemaker implantation Diabetes PLAN: Continue current cardiac medications Increase lisinopril to 5 mg daily for optimal blood pressure control Continue to monitor patient for additional 24 hours Further recommendations pending patient course Nurse practitioner note has been reviewed by physician. Signing provider agrees with the documented findings, assessment, and plan of care documented by [facility] as a scribe. Objective - Vital Signs Vital signs: Vital Signs Temp 97.9 F 12/04/23 08:00 Pulse 77 12/04/23 08:00 Resp 18 12/04/23 08:00 BP 146/80 12/04/23 08:00 Pulse Ox 97 12/04/23 08:00 FiO2 Intake & Output 12/03/23 12/04/23 12/04/23 18:59 06:59 18:59 Intake Total 50.263 480 600 Output Total 200 Balance 50.263 280 600 Weight 125.645 kg 95.5 kg Intake: Intake, IV Titration 50.263 Amount Heparin Sod,Pork in 0.45% 50.263 NaCl 25,000 unit In 0.45 % NaCl 1 250ml.bag @ 7. 959 UNITS/KG/HR 10 mls/hr IV .Q24H [facility] Rx#: [id number] Oral 480 600 Output: Urine 200 Other: Voiding Method External Catheter External Catheter External Catheter - Labs CBC & Chem 7: 12/03/23 06:31 12/04/23 06:25 Labs: Abnormal Lab Results - Last 24 Hours (Table) 12/03/23 12/03/23 12/03/23 Range/Units 15:32 16:47 19:35 Chloride (98-107) mmol/L BUN (7-17) mg/dL POC Glucose (mg/dL) 138 H 134 H 68 L (70-110) mg/dL 12/04/23 Range/Units 06:25 Chloride 109 H (98-107) mmol/L BUN 19 H (7-17) mg/dL POC Glucose (mg/dL) (70-110) mg/dL
[2023-12-04 11:31] LABS: Glucose,Whole Blood 166 mg/dL (70-110)
--- NOTE | 2023-12-04 14:24 | P.PN ---
Subjective Progress Note Date: 12/04/23 Hospital Course: 73-year-old female with multivessel coronary artery disease, hypertension, dem entia, dyslipidemia, hypothyroidism, insulin-dependent diabetes presenting with chest pain and hypertension. In the ED, temperature was 97.9, pulse 86, respiratory rate 18, blood pressure 197/114, saturating at 97% on room air. CBC showed hemoglobin of 12, potassium hemolyzed at 5.3, creatinine 0.55, magnesium 1.3, glucose 195, troponin 1.54. Chest x-ray independently interpreted, shows pacemaker in place, EKG independently interpreted, shows ST elevation in V2, Q waves in inferior and anterior/septal leads, nonspecific ST-T wave changes. Patient started on heparin drip. Cardiology consulted. Echocardiogram shows normal LV size, hypokinesia of apex, mild mitral and tricuspid regurgitation. Troponins peaked at 3.58. Underwent cardiac cath, showed multivessel coronary artery disease including significant stenosis up to 95% in mid LAD, with successful stenting, distal LAD stenosis, multiple segment stenosis within left circumflex, chronically occluded stented PDA. Subjective: Patient seen and examined at bedside. No acute events overnight. Denies any chest pain Pertinent positives and negatives as discussed above, a complete review of systems was performed and all other systems are negative. Vitals Signs Reviewed. General: Nontoxic, no distress, appears at stated age Derm: Warm, dry Head: Atraumatic, normocephalic, symmetric Eyes: EOMI, no lid lag, anicteric sclera Mouth: No lip lesion, mucus membranes moist Cardiovascular: S1S2 reg, no murmur Lungs: CTA bilateral, no rhonchi, no rales, no accessory muscle use Abdominal: Soft, nontender to palpation, no guarding, no appreciable organomegaly Ext: No gross muscle atrophy, no edema, no contractures Neuro: CN II-XI grossly intact, no focal neuro deficits Psych: Alert, oriented to, appropriate affect Data Reviewed Today: Pertinent Labs: Sodium 140, potassium 4, creatinine 0.72, blood sugars range between 68-1 66 Imaging: No new imaging Assessment and Plan: Active: Acute NSTEMI status post stent Multivessel coronary artery disease Systolic cardiomyopathy, EF 40% -S/p cardiac cath -Continue telemetry -Cardiology note reviewed, increase lisinopril to 5 mg, monitor for another 24 hours -Aspirin 81 mg, atorvastatin 80 mg, Plavix 75 daily, Zetia 10 mg daily, metoprolol 50 daily -Patient was previously evaluated by cardiothoracic surgery, and recommended that patient is not an ideal candidate for CABG due to her history of dementia Uncontrolled hypertension -Lisinopril 5 daily Insulin-dependent diabetes, A1c 8.6 -Continue sliding scale insulin, monitor for hypoglycemia -Continue home Levemir, decrease to 30 units daily Chronic: Hypothyroidism Dementia Neuropathy DVT ppx: Subcu heparin Code status: DNR/DNI Anticipated discharge place: Home Anticipated discharge time: Likely tomorrow Objective - Vital Signs Vital signs: Vital Signs Temp 97.9 F 12/04/23 08:00 Pulse 65 12/04/23 11:30 Resp 16 12/04/23 11:30 BP 132/82 12/04/23 11:30 Pulse Ox 96 12/04/23 11:30 FiO2 Intake & Output 12/03/23 12/04/23 12/04/23 18:59 06:59 18:59 Intake Total 50.263 480 718 Output Total 200 Balance 50.263 280 718 Weight 125.645 kg 95.5 kg Intake: Intake, IV Titration 50.263 Amount Heparin Sod,Pork in 0.45% 50.263 NaCl 25,000 unit In 0.45 % NaCl 1 250ml.bag @ 7. 959 UNITS/KG/HR 10 mls/hr IV .Q24H [facility] Rx#: [id number] Oral 480 718 Output: Urine 200 Other: Voiding Method External Catheter External Catheter Toilet External Catheter - Labs CBC & Chem 7: 12/03/23 06:31 12/04/23 06:25 Labs: Abnormal Lab Results - Last 24 Hours (Table) 12/03/23 12/03/23 12/03/23 Range/Units 15:32 16:47 19:35 Chloride (98-107) mmol/L BUN (7-17) mg/dL POC Glucose (mg/dL) 138 H 134 H 68 L (70-110) mg/dL 12/04/23 12/04/23 Range/Units 06:25 11:28 Chloride 109 H (98-107) mmol/L BUN 19 H (7-17) mg/dL POC Glucose (mg/dL) 166 H (70-110) mg/dL
[2023-12-04] MEDS: HEPARIN SODIUM,PORCINE 5,000 UNIT/ML 1 ML VIAL SQ SCH (15:18)
[2023-12-04 16:21] LABS: Glucose,Whole Blood 168 mg/dL (70-110)
[2023-12-04 16:47] VITALS: BMI 32.0
[2023-12-04 20:02] LABS: Glucose,Whole Blood 164 mg/dL (70-110)
[2023-12-05 05:40] LABS: Glucose,Whole Blood 100 mg/dL (70-110)
[2023-12-05] MEDS: lisinopriL 5 MG TAB PO SCH (09:21)
[2023-12-05 11:06] VITALS: TEMP 97.5
[2023-12-05 11:36] LABS: Glucose,Whole Blood 108 mg/dL (70-110)
[2023-12-05 12:49] VITALS: BP 123/77; PULSE 61; RESP 16
--- NOTE | 2023-12-05 14:00 | P.DS ---
Providers Date of admission: 12/02/23 15:20 Expected date of discharge: 12/05/23 Attending physician: Dipesh Wang MD Consults: 12/02/23 15:18 Consult Physician Urgent Consulting Provider: Danielle Devlin Consult Reason/Comments: NSTEMI Do you want consulting provider notified?: Yes 12/03/23 13:49 Consult Physician Routine Consulting Provider: Danielle Devlin Consult Reason/Comments: Post Interventional Patient Do you want consulting provider notified?: Already Contacted Primary care physician: Medhat Asif Hospital Course: Discharge Diagnosis: Acute NSTEMI status post stent Multivessel coronary artery disease Systolic cardiomyopathy, EF 40% Uncontrolled hypertension Insulin-dependent diabetes, A1c 8.6 Hypothyroidism Dementia Neuropathy Hospital Course: 73-year-old female with multivessel coronary artery disease, hypertension, dementia, dyslipidemia, hypothyroidism, insulin-dependent diabetes presenting with chest pain and hypertension. In the ED, temperature was 97.9, pulse 86, respiratory rate 18, blood pressure 197/114, saturating at 97% on room air. CBC showed hemoglobin of 12, potassium hemolyzed at 5.3, creatinine 0.55, magnesium 1.3, glucose 195, troponin 1.54. Chest x-ray independently interpreted, shows pacemaker in place, EKG independently interpreted, shows ST elevation in V2, Q waves in inferior and anterior/septal leads, nonspecific ST-T wave changes. Patient started on heparin drip. Cardiology consulted. Echocardiogram shows normal LV size, hypokinesia of apex, mild mitral and tricuspid regurgitation. Troponins peaked at 3.58. Underwent cardiac cath, showed multivessel coronary artery disease including significant stenosis up to 95% in mid LAD, with successful stenting, distal LAD stenosis, multiple segment stenosis within left circumflex, chronically occluded stented PDA. Denies any further chest pain. Being discharged on dual antiplatelet therapy. Follow-up with cardiology, PCP outpatient. Patient seen and examined at bedside. Vital signs reviewed and stable. General: Nontoxic, no distress, appears at stated age Derm: Warm, dry Head: Atraumatic, normocephalic, symmetric Eyes: EOMI, no lid lag, anicteric sclera Mouth: No lip lesion, mucus membranes moist Cardiovascular: S1S2 reg, no murmur Lungs: CTA bilateral, no rhonchi, no rales, no accessory muscle use Abdominal: Soft, nontender to palpation, no guarding, no appreciable organomegaly Ext: No gross muscle atrophy, no edema, no contractures Neuro: CN II-XI grossly intact, no focal neuro deficits Psych: Alert, oriented, appropriate affect A total of 33 minutes of time were spent preparing this complex discharge summary. Patient was discharged on 12/05/2023 at 1358. Plan - Discharge Summary Discharge Rx Participant: Yes New Discharge Prescriptions: New Atorvastatin [Lipitor] 80 mg PO DAILY #90 tab Metoprolol Succinate (ER) [Toprol XL] 50 mg PO DAILY #90 tab lisinopriL [Zestril] 5 mg PO DAILY #90 tab Dapagliflozin Propanediol [Farxiga] 10 mg PO DAILY #90 tablet Clopidogrel [Plavix] 75 mg PO DAILY #90 tab Ezetimibe [Zetia] 10 mg PO DAILY #90 tab Continue DULoxetine HCL [Cymbalta] 60 mg PO BID Omeprazole [PriLOSEC] 20 mg PO DAILY Donepezil [Aricept] 10 mg PO DAILY Insulin Detemir [Levemir Flexpen] 52 units SQ DAILY Aspirin 81 mg PO DAILY tab Gabapentin [Neurontin] 300 mg PO BID #24 cap Levothyroxine Sodium [Synthroid] 112 mcg PO DAILY Colchicine 1.2 mg PO DAILY oxyBUTYnin chloride [Ditropan XL] 10 mg PO DAILY Meclizine [Antivert] 12.5 - 25 mg PO BID Discontinued Atorvastatin Calcium [Lipitor] 40 mg PO DAILY lisinopriL 2.5 mg PO DAILY Metoprolol Tartrate [Lopressor] 25 mg PO BID Discharge Medication List DULoxetine HCL [Cymbalta] 60 mg PO BID 12/27/19 [History] Donepezil [Aricept] 10 mg PO DAILY 09/24/22 [History] Insulin Detemir [Levemir Flexpen] 52 units SQ DAILY 09/24/22 [History] Omeprazole [PriLOSEC] 20 mg PO DAILY 09/24/22 [History] oxyBUTYnin chloride [Ditropan XL] 10 mg PO DAILY 09/24/22 [History] Aspirin 81 mg PO DAILY tab 09/27/22 [Rx] Gabapentin [Neurontin] 300 mg PO BID #24 cap 09/27/22 [Rx] Levothyroxine Sodium [Synthroid] 112 mcg PO DAILY 06/18/23 [History] Colchicine 1.2 mg PO DAILY 12/02/23 [History] Meclizine [Antivert] 12.5 - 25 mg PO BID 12/02/23 [History] Atorvastatin [Lipitor] 80 mg PO DAILY #90 tab 12/05/23 [Rx] Clopidogrel [Plavix] 75 mg PO DAILY #90 tab 12/05/23 [Rx] Dapagliflozin Propanediol [Farxiga] 10 mg PO DAILY #90 tablet 12/05/23 [Rx] Ezetimibe [Zetia] 10 mg PO DAILY #90 tab 12/05/23 [Rx] Metoprolol Succinate (ER) [Toprol XL] 50 mg PO DAILY #90 tab 12/05/23 [Rx] lisinopriL [Zestril] 5 mg PO DAILY #90 tab 12/05/23 [Rx] Follow up Appointment(s)/Referral(s): Nonstaff,Physician [REFERRING] - 1-2 days [facility] [NON-STAFF] - Kimberlyn Ruiz MD [STAFF PHYSICIAN] - 1 Week Patient Instructions/Handouts: Heart Attack (DC), Heart Healthy Diet (DC) Activity/Diet/Wound Care/Special Instructions: Please see your PCP and cardiology. Discharge Disposition: HOME WITH HOME HEALTH SERVICES
--- NOTE | 2023-12-05 19:57 | P.PN ---
Subjective Progress Note Date: 12/05/23 This is a 73-year-old female with a past medical history significant for hypertension, hyperlipidemia, diabetes, coronary artery disease with multivessel stenting, pacemaker implantation, and CVA/TIA with residual speech impediment. Patient follows in the office with Dr. Ruiz. We have been asked to see the patient in consultation for non-STEMI. Patient examined at the bedside in the emergency room. Patient states she has been having chest discomfort for the past week on and off. She denies any radiation of the pain. She denies any shortness of breath. This morning her pain has resolved but she states that she feels tired. Patient was found to have elevated troponins and was started on IV heparin. Patient's and daughter are at the bedside and updated on patient's condition and plan of care. Patient's daughter also requesting that patient's medications be once a day morning medications if possible as she has an membership assistant that comes to her house in the morning to help her with morning medications and does not have anyone to handle her medications in the evening and she sometimes forgets to take her nighttime medications. Progress note December 05, 2023 Patient is doing well from cardiovascular standpoint, no concerns of right radial site hematoma or bleeding. Good patent hemostasis. No chest pain chest pressure. Doing well. DIAGNOSTICS: - EKG x 4 completed in the ER with dynamic ischemic changes noted. - Chest xray negative for acute process. - Laboratory data: WBC 10.2. Hemoglobin 13.0. Platelet count 182. Sodium 140. Potassium 3.8. BUN 22. Creatinine 0.85. Troponin 1.540. 2.480. 3.580. 2.690. - Current home cardiac medications include aspirin 81 mg daily, Lipitor 40 mg daily, metoprolol tartrate 25 mg twice a day, lisinopril 2.5 mg daily - Most recent echocardiogram obtained in April 2023 revealing ejection fraction 60 to 65%, mild MR, mild aortic stenosis, mild TR - Cardiac catheterization history: April 2023 revealing severe stenosis in the mid LAD, severe stenosis in proximal left circumflex and OM1, totally occluded right PDA. Patient was evaluated for CABG and found not to be a good surgical candidate. 12/04/2023 Patient is status post cardiac catheterization with Dr. Ruiz revealing severe stenosis in the LAD distal to the stented segment, severe multiple segment disease in the left circumflex with in-stent restenosis, chronically occluded stented PDA. Patient underwent stenting of the mid LAD. Patient examined this morning at the bedside. Patient currently denies any chest pain or pressure. She denies any shortness of breath. Pressure elevated this morning with a systolic in the 140s. Echocardiogram completed revealing ejection fraction 40%, hypokinesia involving the mid to distal septum and adjoining anterior apical wall, mild MR, mild TR PHYSICAL EXAM: VITAL SIGNS: Reviewed. GENERAL: Well-developed in no acute distress. HEENT: Head is normocephalic. Pupils are equal, round. Sclerae anicteric. Mucous membranes of the mouth are moist. Neck supple. No JVD or thyromegaly LUNGS: Respirations even and unlabored. Lungs essentially clear to auscultation bilaterally. HEART: Regular rate and rhythm. S1 and S2 heard. ABDOMEN: Soft. Nondistended. Nontender. EXTREMITIES: Normal range of motion. No clubbing or cyanosis. Peripheral pulses intact. No lower extremity edema NEUROLOGIC: Awake and alert. Oriented x 3. ASSESSMENT: Non-STEMI Coronary artery disease with previous multivessel stenting, deemed not to be a CABG candidiate Ischemic cardiomyopathy, 40% Hypertension Hyperlipidemia History of CVA/TIA with residual speech impediment History of pacemaker implantation Diabetes PLAN: Continue dual antiplatelet therapy, low-dose beta-anmol and statin Increase lisinopril to 5 mg daily for optimal blood pressure control Start SGLT2 for cardiomyopathy and diabetes Okay to discharge with outpatient follow-up Objective - Vital Signs Vital signs: Vital Signs Temp 97.5 F L 12/05/23 08:00 Pulse 61 12/05/23 12:00 Resp 16 12/05/23 12:00 BP 123/77 12/05/23 12:00 Pulse Ox 98 12/05/23 12:00 FiO2 Intake & Output 12/05/23 12/05/23 12/06/23 06:59 18:59 06:59 Intake Total 540 240 Balance 540 240 Weight 85.5 kg Intake: Oral 540 240 Other: Voiding Method Toilet Toilet # Voids 1 - Labs CBC & Chem 7: 12/03/23 06:31 12/04/23 06:25 Labs: Abnormal Lab Results - Last 24 Hours (Table) 12/04/23 Range/Units 20:01 POC Glucose (mg/dL) 164 H (70-110) mg/dL
== END 2023-12-05 15:16 | disposition home health service (06) | DRG 321 ==
LOC: EC 13:01 → 3SCARD 15:20
PROVIDERS: ADMIT Student in an Organized Health Care Education/Training Program; ATTEND Student in an Organized Health Care Education/Training Program
PROC: 027035Z Dilation of Coronary Artery, One Artery with Two Drug-eluting Intraluminal Devices, Percutaneous Approach (ICD-10-PCS; principal; 2023-12-03 09:45)
PROC: 4A023N7 Measurement of Cardiac Sampling and Pressure, Left Heart, Percutaneous Approach (ICD-10-PCS; 2023-12-03 09:45)
PROC: B2111ZZ Fluoroscopy of Multiple Coronary Arteries using Low Osmolar Contrast (ICD-10-PCS; 2023-12-03 09:45)
DX: T82.855A Stenosis of coronary artery stent, initial encounter (principal); I21.4 Non-ST elevation (NSTEMI) myocardial infarction; F03.94 Unspecified dementia, unspecified severity, with anxiety; I42.8 Other cardiomyopathies; I69.851 Hemiplegia and hemiparesis following other cerebrovascular disease affecting right dominant side; G91.2 (Idiopathic) normal pressure hydrocephalus; Z66 Do not resuscitate; I11.0 Hypertensive heart disease with heart failure; I50.9 Heart failure, unspecified; E11.42 Type 2 diabetes mellitus with diabetic polyneuropathy; E03.9 Hypothyroidism, unspecified; I69.828 Other speech and language deficits following other cerebrovascular disease; Z79.4 Long term (current) use of insulin; G47.30 Sleep apnea, unspecified; K21.9 Gastro-esophageal reflux disease without esophagitis; M10.9 Gout, unspecified; M19.90 Unspecified osteoarthritis, unspecified site; I08.1 Rheumatic disorders of both mitral and tricuspid valves; I25.10 Atherosclerotic heart disease of native coronary artery without angina pectoris; E78.5 Hyperlipidemia, unspecified; I25.5 Ischemic cardiomyopathy; Y71.2 Prosthetic and other implants, materials and accessory cardiovascular devices associated with adverse incidents; Y83.1 Surgical operation with implant of artificial internal device as the cause of abnormal reaction of the patient, or of later complication, without mention of misadventure at the time of the procedure; I25.2 Old myocardial infarction; Z96.652 Presence of left artificial knee joint; Z79.02 Long term (current) use of antithrombotics/antiplatelets; Z79.82 Long term (current) use of aspirin; Z79.84 Long term (current) use of oral hypoglycemic drugs; Z79.890 Hormone replacement therapy; Z79.899 Other long term (current) drug therapy; Z95.0 Presence of cardiac pacemaker; Z98.2 Presence of cerebrospinal fluid drainage device; Z82.49 Family history of ischemic heart disease and other diseases of the circulatory system
CPT/HCPCS: 36415; 71046; 80048; 80053; 80061; 83036; 83735; 84484; 85025; 85610; 85730; 92978; 93005; 93306; 93458; 96365; 96366; 96368; 99291

== ENCOUNTER 2023-12-09 14:09 | Inpatient (IN) | payer MEDICARE, OTHER ==
--- NOTE | 2023-12-09 14:38 | ED ---
General Adult HPI - General Chief complaint: Fall Stated complaint: Fall/Post Op Heart Surg Time Seen by Provider: 12/09/23 14:30 Source: patient, RN notes reviewed, old records reviewed Mode of arrival: ambulatory Limitations: no limitations - History of Present Illness Initial comments: The left parietal region of her head. Patient denied any bleeding. Patient denied any headache currently. Patient denies any neck pain patient has numbness weakness. Patient states she did have a loss of consciousness when she hit her head this morning. Patient states he has no chest pain no back pain no extremity pain. Patient denies any other issues at this time. Patient states she was just in the hospital for cardiac reason and she received a cardiac stent - Related Data Home Medications Medication Instructions Recorded Confirmed DULoxetine HCL [Cymbalta] 60 mg PO BID 12/27/19 12/09/23 Donepezil [Aricept] 10 mg PO DAILY 09/24/22 12/09/23 Insulin Detemir [Levemir Flexpen] 52 units SQ DAILY 09/24/22 12/09/23 Omeprazole [PriLOSEC] 20 mg PO DAILY 09/24/22 12/09/23 oxyBUTYnin chloride [Ditropan XL] 10 mg PO DAILY 09/24/22 12/09/23 Levothyroxine Sodium [Synthroid] 112 mcg PO DAILY 06/18/23 12/09/23 Colchicine 1.2 mg PO DAILY 12/02/23 12/09/23 Meclizine [Antivert] 12.5 - 25 mg PO BID 12/02/23 12/09/23 Previous Rx's Medication Instructions Recorded Aspirin 81 mg PO DAILY tab 09/27/22 Gabapentin [Neurontin] 300 mg PO BID #24 cap 09/27/22 Atorvastatin [Lipitor] 80 mg PO DAILY #90 tab 12/05/23 Clopidogrel [Plavix] 75 mg PO DAILY #90 tablet 12/05/23 Dapagliflozin Propanediol [Farxiga] 10 mg PO DAILY #30 tablet 12/05/23 Ezetimibe [Zetia] 10 mg PO DAILY #90 tab 12/05/23 Metoprolol Succinate (ER) [Toprol 50 mg PO DAILY #90 tab 12/05/23 Xl] lisinopriL [Zestril] 5 mg PO DAILY #90 tab 12/05/23 Allergies Allergy/AdvReac Type Severity Reaction Status Date / Time Penicillins Allergy Rash/Hives Verified 12/09/23 18:07 Review of Systems ROS Statement: Those systems with pertinent positive or pertinent negative responses have been documented in the HPI. ROS Other: All systems not noted in ROS Statement are negative. 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 Occasional dizziness. Normal pressure hydroce phalus - has shunt. Neuropathy bilateral feet/toes, chronic back pain, IBS, narcolepsy, gout. Last Myocardial Infarction Date:: 12/27/19 History of Any Multi-Drug Resistant Organisms: None Reported Past Surgical History: Back Surgery, EPS, Heart Catheterization With Stent, Joint Replacement, Orthopedic Surgery, Pacemaker, Tubal Ligation Additional Past Surgical History / Comment(s): 4 cardiac stents, low back surgery, brain shunt, colonoscopy, total left knee replacement, permanent pacemaker placement, got infected and removed and then replaced. Past Anesthesia/Blood Transfusion Reactions: No Reported Reaction, Motion Sickness, Postoperative Nausea & Vomiting (PONV) Date of Last Stent Placement:: 12/27/19 Type of Cardiac Device: Permanent Pacemaker Device Placement Date:: MAR 2020 Past Psychological History: Anxiety, Depression Smoking Status: Never smoker Past Alcohol Use History: None Reported Past Drug Use History: None Reported - Past Family History Father History Unknown: Yes Mother History Unknown: Yes Brother(s) History Unknown: Yes Family Medical History: Cancer, Myocardial Infarction (PA) Additional Family Medical History / Comment(s): One brother had an PA. Another brother had prostate cancer. General Exam - General Exam Comments Initial Comments: GENERAL: Patient is well-developed and well-nourished. Patient is nontoxic and well- hydrated and is in no acute distress. No signs of head trauma ENT: Neck is soft and supple. No significant lymphadenopathy is noted. Oropharynx is clear. Moist mucous membranes. Neck has full range of motion without eliciting any pain. EYES: The sclera were anicteric and conjunctiva were pink and moist. Extraocular movements were intact and pupils were equal round and reactive to light. Eyelids were unremarkable. PULMONARY: Unlabored respirations. Good breath sounds bilaterally. No audible rales rhonchi or wheezing was noted. CARDIOVASCULAR: There is a regular rate and rhythm without any murmurs gallops or rubs. ABDOMEN: Soft and nontender with normal bowel sounds. No palpable organomegaly was noted. There is no palpable pulsatile mass. SKIN: Skin is clear with no lesions or rashes and otherwise unremarkable. NEUROLOGIC: Patient is alert and oriented x3. Cranial nerves II through XII are grossly intact. Motor and sensory are also intact. Normal speech, volume and content. Symmetrical smile. MUSCULOSKELETAL: Normal extremities with adequate strength and full range of motion. No lower extremity swelling or edema. No calf tenderness. LYMPHATICS: No significant lymphadenopathy is noted PSYCHIATRIC: Normal psychiatric evaluation. Limitations: no limitations Course Vital Signs 12/09/23 12/09/23 12/09/23 14:21 16:30 18:42 Temperature 97.4 F L 98.6 F Pulse Rate 74 65 60 Respiratory 20 16 16 Rate Blood Pressure 131/74 164/93 152/84 O2 Sat by Pulse 96 97 98 Oximetry Medical Decision Making - Medical Decision Making EKG is interpreted by myself. EKG shows a sinus rhythm at 70 bpm parables 144 QRS is 96 QT interval is 437 QTc is 458 EKG shows some slight ST segment elevation that was noted on the previous EKG. Was pt. sent in by a medical professional or institution (, PA, DIRECTOR OF CATERING, urgent care, hospital, or retirement...) When possible be specific @ -No Did you speak to anyone other than the patient for history (EMS, parent, family, police, friend...)? What history was obtained from this source @ -Patient's gave quite a bit of the history Did you review nursing and triage notes (agree or disagree)? Why? @ -I reviewed and agree with nursing and triage notes Were old charts reviewed (outside hosp., previous admission, EMS record, old EKG, old radiological studies, urgent care reports/EKG's, retirement records)? Report findings @ -No old charts were reviewed Differential Diagnosis? @ -Cervical spine fracture, skull fracture, subdural hematoma, epidural hematoma, subarachnoid hematoma, intraparenchymal hemorrhage, concussion, this is not an all-inclusive list EKG interpreted by me (3pts min.). @ -As above X-rays interpreted by me (1pt min.). @ -Chest x-ray shows mild pleural effusion CT interpreted by me (1pt min.). @ -CT of the brain and C-spine showed no acute abnormality U/S interpreted by me (1pt. min.). @ -None done What testing was considered but not performed or refused? (CT, X-rays, U/S, labs)? Why? @ -None What meds were considered but not given or refused? Why? @ -None Did you discuss the management of the patient with other professionals (professionals i.e. DrJennifer, PA, DIRECTOR OF CATERING, lab, RT, psych nurse, licensed clinical social worker, sales assoc, teacher, community resource officer, piano case and bench assembler)? Give summary @ -Spoke with sound physicians agreed to admit the patient admit the patient wrote admitting orders Was smoking cessation discussed for >3mins.? @ -No Was critical care preformed (if so, how long)? @ -No Were there social determinants of health that impacted care today? How? (Home lessness, low income, unemployed, alcoholism, drug addiction, transportation, low edu. Level, literacy, decrease access to med. care, skilled nursing, rehab)? @ -No Was there de-escalation of care discussed even if they declined (Discuss DNR or withdrawal of care, Hospice)? DNR status @ -No What co-morbidities impacted this encounter? (DM, HTN, Smoking, COPD, CAD, Cancer, CVA, ARF, Chemo, Hep., AIDS, mental health diagnosis, sleep apnea, morbid obesity)? @ -None Was patient admitted / discharged? Hospital course, mention meds given and route, prescriptions, significant lab abnormalities, going to OR and other pertinent info. @ -Patient was not stable to go home she was at a fall risk and family was not willing to take her home and they were told to bring her in so she can be admitted to get rehabilitation. Patient has no sign of head trauma or any other trauma. And this is the reason the patient will not be admitted to the trauma service it was inadvertently called the priority to even though he did not qualify at the time it was an error at that time. Undiagnosed new problem with uncertain prognosis? @ -No Drug Therapy requiring intensive monitoring for toxicity (Heparin, Nitro, Insulin, Cardizem)? @ -No Were any procedures done? @ -No Diagnosis/symptom? @ -Multiple falls Acute, or Chronic, or Acute on Chronic? @ -Acute Uncomplicated (without systemic symptoms) or Complicated (systemic symptoms)? @ -Complicated Side effects of treatment? @ -No Exacerbation, Progression, or Severe Exacerbation? @ -No Poses a threat to life or bodily function? How? (Chest pain, USA, PA, pneumonia, PE, COPD, DKA, ARF, appy, cholecystitis, CVA, Diverticulitis, Homicidal, Suicidal, threat to staff... and all critical care pts) @ -No Diagnosis/symptom? @ -Head trauma Acute, or Chronic, or Acute on Chronic? @ -Acute Uncomplicated (without systemic symptoms) or Complicated (systemic symptoms)? @ -Uncomplicated Side effects of treatment? @ -None Exacerbation, Progression, or Severe Exacerbation] @ -No Poses a threat to life or bodily function? @ -No - Lab Data Result diagrams: 12/09/23 14:37 12/09/23 14:37 Lab Results 12/09/23 12/09/23 12/09/23 Range/Units 14:36 14:37 14:37 WBC 8.3 (3.8-10.6) k/uL RBC 3.93 (3.80-5.40) m/uL Hgb 10.5 L (11.4-16.0) gm/dL Hct 33.6 L (34.0-46.0) % MCV 85.4 (80.0-100.0) fL MCH 26.7 (25.0-35.0) pg MCHC 31.3 (31.0-37.0) g/dL RDW 17.2 H (11.5-15.5) % Plt Count 161 (150-450) k/uL MPV 9.7 Neutrophils % 63 % Lymphocytes % 28 % Monocytes % 7 % Eosinophils % 0 % Basophils % 0 % Neutrophils # 5.3 (1.3-7.7) k/uL Lymphocytes # 2.3 (1.0-4.8) k/uL Monocytes # 0.6 (0-1.0) k/uL Eosinophils # 0.0 (0-0.7) k/uL Basophils # 0.0 (0-0.2) k/uL Hypochromasia Moderate Anisocytosis Slight PT 11.0 (10.0-12.5) sec INR 1.0 (<1.2) APTT 32.2 H (22.0-30.0) sec Sodium (137-145) mmol/L Potassium (3.5-5.1) mmol/L Chloride (98-107) mmol/L Carbon Dioxide (22-30) mmol/L Anion Gap mmol/L BUN (7-17) mg/dL Creatinine (0.52-1.04) mg/dL Est GFR (CKD-EPI)AfAm (>60 ml/min/1.73 sqM) Est GFR (CKD-EPI)NonAf (>60 ml/min/1.73 sqM) Glucose (74-99) mg/dL Calcium (8.4-10.2) mg/dL Total Bilirubin (0.2-1.3) mg/dL AST (14-36) U/L ALT (4-34) U/L Alkaline Phosphatase (38-126) U/L Troponin I (0.000-0.034) ng/mL Total Protein (6.3-8.2) g/dL Albumin (3.5-5.0) g/dL Serum Alcohol mg/dL Blood Type A Positive Blood Type Confirm Blood Type Recheck Bld Type Recheck Status Antibody Screen NEGATIVE Spec Expiration Date 12/09/23 12/09/23 12/09/23 Range/Units 14:37 14:37 14:37 WBC (3.8-10.6) k/uL RBC (3.80-5.40) m/uL Hgb (11.4-16.0) gm/dL Hct (34.0-46.0) % MCV (80.0-100.0) fL MCH (25.0-35.0) pg MCHC (31.0-37.0) g/dL RDW (11.5-15.5) % Plt Count (150-450) k/uL MPV Neutrophils % % Lymphocytes % % Monocytes % % Eosinophils % % Basophils % % Neutrophils # (1.3-7.7) k/uL Lymphocytes # (1.0-4.8) k/uL Monocytes # (0-1.0) k/uL Eosinophils # (0-0.7) k/uL Basophils # (0-0.2) k/uL Hypochromasia Anisocytosis PT (10.0-12.5) sec INR (<1.2) APTT (22.0-30.0) sec Sodium 142 (137-145) mmol/L Potassium 3.9 (3.5-5.1) mmol/L Chloride 109 H (98-107) mmol/L Carbon Dioxide 25 (22-30) mmol/L Anion Gap 8 mmol/L BUN 15 (7-17) mg/dL Creatinine 0.68 (0.52-1.04) mg/dL Est GFR (CKD-EPI)AfAm >90 (>60 ml/min/1.73 sqM) Est GFR (CKD-EPI)NonAf 86 (>60 ml/min/1.73 sqM) Glucose 206 H (74-99) mg/dL Calcium 9.0 (8.4-10.2) mg/dL Total Bilirubin 0.5 (0.2-1.3) mg/dL AST 25 (14-36) U/L ALT 22 (4-34) U/L Alkaline Phosphatase 87 (38-126) U/L Troponin I 0.076 H* (0.000-0.034) ng/mL Total Protein 5.9 L (6.3-8.2) g/dL Albumin 3.4 L (3.5-5.0) g/dL Serum Alcohol <10 mg/dL Blood Type Blood Type Confirm Blood Type Recheck No Previous Record Bld Type Recheck Status CABO Indicated Antibody Screen Spec Expiration Date 12/12/2023 - 233612/09/23 Range/Units 15:15 WBC (3.8-10.6) k/uL RBC (3.80-5.40) m/uL Hgb (11.4-16.0) gm/dL Hct (34.0-46.0) % MCV (80.0-100.0) fL MCH (25.0-35.0) pg MCHC (31.0-37.0) g/dL RDW (11.5-15.5) % Plt Count (150-450) k/uL MPV Neutrophils % % Lymphocytes % % Monocytes % % Eosinophils % % Basophils % % Neutrophils # (1.3-7.7) k/uL Lymphocytes # (1.0-4.8) k/uL Monocytes # (0-1.0) k/uL Eosinophils # (0-0.7) k/uL Basophils # (0-0.2) k/uL Hypochromasia Anisocytosis PT (10.0-12.5) sec INR (<1.2) APTT (22.0-30.0) sec Sodium (137-145) mmol/L Potassium (3.5-5.1) mmol/L Chloride (98-107) mmol/L Carbon Dioxide (22-30) mmol/L Anion Gap mmol/L BUN (7-17) mg/dL Creatinine (0.52-1.04) mg/dL Est GFR (CKD-EPI)AfAm (>60 ml/min/1.73 sqM) Est GFR (CKD-EPI)NonAf (>60 ml/min/1.73 sqM) Glucose (74-99) mg/dL Calcium (8.4-10.2) mg/dL Total Bilirubin (0.2-1.3) mg/dL AST (14-36) U/L ALT (4-34) U/L Alkaline Phosphatase (38-126) U/L Troponin I (0.000-0.034) ng/mL Total Protein (6.3-8.2) g/dL Albumin (3.5-5.0) g/dL Serum Alcohol mg/dL Blood Type Blood Type Confirm A Positive Blood Type Recheck Bld Type Recheck Status Antibody Screen Spec Expiration Date Disposition Clinical Impression: Fall, Head injury Disposition: ADMITTED IP TO THIS HOSP Referrals: Medhat Asif DO [Primary Care Provider] - 1-2 days Time of Disposition: 19:23
[2023-12-09 14:46] LABS: Anisocytosis Slight; Basophils % (A) 0 %; Eosinophils % (A) 0 %; HCT 33.6 % (34.0-46.0); HGB 10.5 gm/dL (11.4-16.0); Hypochromasia Moderate; Lymphocytes # (A) 2.3 k/uL (1.0-4.8); Lymphocytes % (A) 28 %; MCH 26.7 pg (25.0-35.0); MCHC 31.3 g/dL (31.0-37.0); MCV 85.4 fL (80.0-100.0); Mean Platelet Volume 9.7; Monocytes # (A) 0.6 k/uL (0-1.0); Monocytes % (A) 7 %; Neutrophils # (A) 5.3 k/uL (1.3-7.7); Neutrophils % (A) 63 %; Platelet Count 161 k/uL (150-450); RBC 3.93 m/uL (3.80-5.40); RDW 17.2 % (11.5-15.5); WBC 8.3 k/uL (3.8-10.6)
--- NOTE | 2023-12-09 15:02 | CT ---
EXAMINATION TYPE: CT brain cspine wo con CT DLP: 1403.1 mGycm, Automated exposure control for dose reduction was used. DATE OF EXAM: 12/09/2023 2:50 PM COMPARISON: None. CLINICAL INDICATION: Female, 73 years old with history of trauma; fall, on blood thinners, no LOC TECHNIQUE: Brain: Multiple axial CT images of the brain were obtained without IV contrast. Cspine: Axial CT images from the skull base to the inferior aspect of T2 we obtained without intraven ous contrast. Coronal and sagittal reformatted images were also reviewed. . FINDINGS: Brain: Extra-axial spaces: No abnormal extra-axial fluid collections. Ventricular system: Ventriculostomy tubing tip terminating near midline in the right lateral ventricl e. Tubing appears intact. No evidence of hydrocephalus Cerebral parenchyma: No acute intraparenchymal hemorrhage or mass effect. The francisco-white junction is well differentiated. Cerebellum: Unremarkable. Mass effect: No evidence of midline shift. Intracranial vasculature: Atherosclerotic calcifications of the intracranial vessels. Soft tissues: Normal. Calvarium/osseous structures: No depressed skull fracture. Paranasal sinuses and mastoid air cells: Clear. Visualized orbits: Orbital contents are intact. Cervical spine: Fracture: None. Osseous structures: Multilevel degenerative disc disease changes with endplate spurring and disc oste ophyte complex's. Vertebral alignment: Within normal limits. Spinal canal/Neural Foramina: Disc osteophyte complexes at C4 with at least mild spinal canal stenosi s. No evidence for significant neural foraminal stenosis. Neck soft tissues: Prevertebral soft tissues are within normal limits. Other: The airway is patent. The lung apices are clear. IMPRESSION: 1. No acute intracranial process. 2. Ventriculostomy tubing without evidence of hydronephrosis. 3. Nonspecific white matter changes, likely secondary to chronic small vessel ischemic disease. 4. No evidence of cervical spine fracture. 5. [id number] multilevel degenerative disc disease.
[2023-12-09 15:04] LABS: Partial Thromboplastin Time 32.2 sec (22.0-30.0)
[2023-12-09 15:17] LABS: ALT 22 U/L (4-34); AST 25 U/L (14-36); African American GFR (CKD) >90 (>60 ml/min/1.73 sqM); Albumin 3.4 g/dL (3.5-5.0); Alcohol <10 mg/dL; Alkaline Phosphatase 87 U/L (38-126); Anion Gap 8 mmol/L; Blood Urea Nitrogen 15 mg/dL (7-17); Carbon Dioxide 25 mmol/L (22-30); Chloride 109 mmol/L (98-107); Glucose 206 mg/dL (74-99); Non-African American GFR(CKD) 86 (>60 ml/min/1.73 sqM); Potassium 3.9 mmol/L (3.5-5.1); Sodium 142 mmol/L (137-145); Total Bilirubin 0.5 mg/dL (0.2-1.3); Total Protein 5.9 g/dL (6.3-8.2)
--- NOTE | 2023-12-09 15:26 | XR ---
EXAMINATION TYPE: XR chest 1V portable, XR pelvis AP view DATE OF EXAM: 12/09/2023 Comparison: Chest 12/02/2023 Clinical History: 73-year-old female with pain after trauma Findings: Chest: Low lung volumes with crowded vascular markings. Right anterior chest wall pacemaker generator with r ight atrial and right ventricular leads. Heart is borderline enlarged. Interstitial prominence may be related to the carotid vascular markings from hypoventilatory changes. Chronic bilateral full-thickn ess rotator cuff tears. Patchy bibasilar densities may reflect atelectasis. No sizable pleural effusi on. No pneumothorax seen. Pelvis: L4-L5 posterior and interbody lumbar fusion. Smooth delineation to the marker lines of the sacrum. M ild degenerative change at the hips and at the pubic symphysis. There is external rotation of the lef t hip limiting visualization of the left femoral neck region. No displaced fracture is seen. Generato r device projecting at the right iliac crest. Impression: 1. Chest: Portable exam further limited by marked hypoventilatory changes. There are some patchy biba silar densities that could be reassessed after adequate inspiratory effort. Probably atelectasis. Mani ateral chronic full-thickness rotator cuff tears. 2. Pelvis: Some limitation in assessment of the lower left femoral neck due to the patient's hip posi tioning. No displaced fracture is seen. Mild bilateral hip OA.
--- NOTE | 2023-12-09 20:48 | P.HPIM ---
History of Present Illness H&P Date: 12/09/23 Patient is a 73-year-old female with a PMH of CAD with recent stents, CVA/TIA, dementia, hypertension, systolic heart failure (EF 40% on echo) presents to the ED due to fall. Patient was accompanied by son. States that she was walking outside to her porch last night and fell. Her son states that she has fallen over 10 times within the past year and attributes that due to poor balance. Patient states she fell and hit right parietal side of her head, and says she was unconscious after she fell down for about 10 to 15 minutes. She denies any dizziness or syncope prior to the fall. She denies any history of seizure or postural dizziness. She denies any chest pain, shortness of breath, back or hip pain. She admits to generalized weakness. She ambulates with a walker. She recently was admitted for NSTEMI and underwnt catheterization with stenting. She was evaluated and advised to go to physical therapy afterwards as outpatient. However, did not believe she needed to go and went straight home instead. EKG independently interpreted show sinus rhythm, T wave inversions V1V5 and II and aVF, at rate of 70 bpm, QTc 458 ms CXR independently interpreted show bilateral patchy infiltrates on lung base likely suspected secondary to atelectasis Pelvis x-ray showed no displaced fracture Head/cervical spine CT showed no acute intracranial process, ventriculostomy tubing without evidence of hydronephrosis. Nonspecific white matter changes, likely secondary to chronic small vessel ischemic. Troponin 0.076, Hgb 10.5, MCV 85.4, APTT 32.2, glucose 206, total protein 5.9, albumin 3.4 T 98.6F, MI 60, RR 16, BP 152/84, O2 sat 98% on room ED documentation reviewed. Review of systems: Pertinent positives and negatives as discussed in HPI, a complete review of systems was performed and all other systems are negative. Social history: Tobacco: Never smoker Alcohol: Denies alcohol use Recreational drugs: Denies drug use Travel: No recent travel Occupation: Retired, lives at home with Physical examination: Vital signs reviewed General: non-toxic, no distress, appears at stated age, normal weight Derm: no unusual rashes/lesions, warm Head: atraumatic, normocephalic, symmetric Eyes: EOMI, anicteric sclera, pupils equal round reactive to light ENT: Nose and ears atraumatic Mouth: no lip lesion, mucus membranes moist Cardiovascular: S1S2 reg, no murmur, positive dorsalis pedis pulse bilateral, no edema Lungs: CTA bilateral, no rhonchi, no rales, no accessory muscle use Abdominal: soft, nontender to palpation, no guarding Ext: muscle strength 5 out of 5 in all 4 extremities grossly, no gross muscle atrophy, no contractures, Neuro: CN II-XI grossly intact, no gross focal neuro deficits Psych: Alert, oriented to person and place only, not oriented to time, appropriate affect Assessment/Plan: Patient is a 73-year-old female with a PMH of CAD with stents, CVA/TIA, dementia, hypertension, CHF presents to the ED for debility and multiple falls. #. Failure to thrive and deblity with multiple resultant falls in setting of dementia CT head/cervical spine showed no acute intracranial process, ventriculostomy tubing without evidence of hydronephrosis Nonspecific white matter changes, likely secondary to chronic small vessel ischemic Echo on 12/03/2023 showed normal LV size with mild to moderate LVH, apical hypokinesis, EF 40% Denies history of seizure or Orthostatic hypotension Fall and seizure precautions Order TSH Consult physical therapy #. Elevated troponin #. History of recent AR #. Hyperlipidemia Troponin 0.076, continue to trend EKG independently interpreted show sinus rhythm, T wave inversions V1V5, rate 70 bpm, QTc 458 ms Troponin Elevation possibly due to AR she had last week Denies active chest pain Continue aspirin 81 mg p.o. daily Continue with clopidogrel 75 mg p.o. daily Continue with Lipitor 80 mg p.o. daily Continue with Ezetimibe 10 mg p.o. daily Cardiac monitoring #. Systolic heart failure (EF 40%), not in exacerbation Denies shortness of breath Continue with metoprolol succinate 50 mg p.o. daily Hold Farxiga 10 mg p.o. daily Continue lisinopril 5 mg p.o. daily Cardiac monitoring #. Hypomagnesemia Mg 1.2 Magnesium sulfate IVP 3 g Follow-up Mg levels #. Normocytic anemia Hgb 10.5, MCV 85.4; baseline hgb 12.0 Patient denies active bleeding Obtain iron profile Order B12, folate levels #. Type 2 diabetes Placed on insulin sliding scale (medium dose) Monitor glucose #. Dementia Alert, oriented to person and place only, not oriented to time At baseline mentation confirmed by daughter Continue with donepezil 10 mg p.o. daily #. GERD Continue omeprazole 20 mg p.o. daily #. Hypothyroidism Continue Synthroid 112 mcg p.o. daily #. Anxiety/depression Continue Cymbalta 60 mg p.o. twice daily DVT prophylaxis: Lovenox 40 SQ daily F: None E: Replete as needed N: Heart healthy diet A: Fall and seizure precautions, PT consulted The patient is admitted with an anticipated greater than 2 midnight stay for evaluation of failure to thrive secondary to fall CODE STATUS: Full Discussed with: Patient and son Anticipated discharge place: Home/SNF Past Medical History Past Medical History: Coronary Artery Disease (CAD), Chest Pain / Angina, Heart Failure, CVA/TIA, Dementia, Diabetes Mellitus, GERD/Reflux, Hyperlipidemia, Hypertension, Memory Impairment, Myocardial Infarction (AR), Osteoarthritis (OA), Sleep Apnea/CPAP/BIPAP, Thyroid Disorder Additional Past Medical History / Comment(s): Hx TIA with residual poor strength on right side and slow speech. Occasional dizziness. Normal pressure hydrocephalus - has shunt. Neuropathy bilateral feet/toes, chronic back pain, IBS, narcolepsy, gout. Last Myocardial Infarction Date:: 12/27/19 History of Any Multi-Drug Resistant Organisms: None Reported Past Surgical History: Back Surgery, EPS, Heart Catheterization With Stent, Joint Replacement, Orthopedic Surgery, Pacemaker, Tubal Ligation Additional Past Surgical History / Comment(s): 4 cardiac stents, low back surgery, brain shunt, colonoscopy, total left knee replacement, permanent pacemaker placement, got infected and removed and then replaced. Past Anesthesia/Blood Transfusion Reactions: No Reported Reaction, Motion Si ckness, Postoperative Nausea & Vomiting (PONV) Date of Last Stent Placement:: 12/27/19 Type of Cardiac Device: Permanent Pacemaker Device Placement Date:: MAR 2020 Past Psychological History: Anxiety, Depression Smoking Status: Never smoker Past Alcohol Use History: None Reported Past Drug Use History: None Reported - Past Family History Father History Unknown: Yes Mother History Unknown: Yes Brother(s) History Unknown: Yes Family Medical History: Cancer, Myocardial Infarction (AR) Additional Family Medical History / Comment(s): One brother had an AR. Another brother had prostate cancer. Medications and Allergies Home Medications Medication Instructions Recorded Confirmed Type DULoxetine HCL [Cymbalta] 60 mg PO BID 12/27/19 12/09/23 History Donepezil [Aricept] 10 mg PO DAILY 09/24/22 12/09/23 History Insulin Detemir [Levemir Flexpen] 52 units SQ DAILY 09/24/22 12/09/23 History Omeprazole [PriLOSEC] 20 mg PO DAILY 09/24/22 12/09/23 History oxyBUTYnin chloride [Ditropan XL] 10 mg PO DAILY 09/24/22 12/09/23 History Aspirin 81 mg PO DAILY tab 09/27/22 12/09/23 Rx Gabapentin [Neurontin] 300 mg PO BID #24 cap 09/27/22 12/09/23 Rx Levothyroxine Sodium [Synthroid] 112 mcg PO DAILY 06/18/23 12/09/23 History Colchicine 1.2 mg PO DAILY 12/02/23 12/09/23 History Meclizine [Antivert] 12.5 - 25 mg PO BID 12/02/23 12/09/23 History Atorvastatin [Lipitor] 80 mg PO DAILY #90 tab 12/05/23 12/09/23 Rx Clopidogrel [Plavix] 75 mg PO DAILY #90 tablet 12/05/23 12/09/23 Rx Dapagliflozin Propanediol [Farxiga] 10 mg PO DAILY #30 tablet 12/05/23 12/09/23 Rx Ezetimibe [Zetia] 10 mg PO DAILY #90 tab 12/05/23 12/09/23 Rx Metoprolol Succinate (ER) [Toprol 50 mg PO DAILY #90 tab 12/05/23 12/09/23 Rx Xl] lisinopriL [Zestril] 5 mg PO DAILY #90 tab 12/05/23 12/09/23 Rx Allergies Allergy/AdvReac Type Severity Reaction Status Date / Time Penicillins Allergy Rash/Hives Verified 12/09/23 18:07 Physical Exam Vitals: Vital Signs Temp Pulse Resp BP Pulse Ox 12/09/23 18:42 98.6 F 60 16 152/84 98 12/09/23 18:00 60 20 129/67 97 12/09/23 17:45 60 18 153/90 97 12/09/23 16:30 65 16 164/93 97 12/09/23 14:21 97.4 F L 74 20 131/74 96 Intake and Output 12/09/23 12/09/23 12/09/23 06:59 14:59 22:59 Other: Weight 79.379 kg Results CBC & Chem 7: 12/09/23 22:43 12/09/23 22:43 Labs: Abnormal Lab Results - Last 24 Hours (Table) 12/09/23 12/09/23 12/09/23 Range/Units 14:37 14:37 14:37 Hgb 10.5 L (11.4-16.0) gm/dL Hct 33.6 L (34.0-46.0) % RDW 17.2 H (11.5-15.5) % APTT 32.2 H (22.0-30.0) sec Chloride 109 H (98-107) mmol/L Glucose 206 H (74-99) mg/dL Troponin I (0.000-0.034) ng/mL Total Protein 5.9 L (6.3-8.2) g/dL Albumin 3.4 L (3.5-5.0) g/dL 12/09/23 Range/Units 14:37 Hgb (11.4-16.0) gm/dL Hct (34.0-46.0) % RDW (11.5-15.5) % APTT (22.0-30.0) sec Chloride (98-107) mmol/L Glucose (74-99) mg/dL Troponin I 0.076 H* (0.000-0.034) ng/mL Total Protein (6.3-8.2) g/dL Albumin (3.5-5.0) g/dL
[2023-12-09] MEDS: SODIUM CHLORIDE 0.9% 1,000 ML IV ONE (21:30)
[2023-12-09 23:24] LABS: Anisocytosis Slight; Basophils % (A) 0 %; Eosinophils % (A) 0 %; HCT 31.3 % (34.0-46.0); Hypochromasia Slight; Lymphocytes # (A) 2.1 k/uL (1.0-4.8); Lymphocytes % (A) 32 %; MCH 27.3 pg (25.0-35.0); MCHC 31.9 g/dL (31.0-37.0); MCV 85.5 fL (80.0-100.0); Mean Platelet Volume 9.8; Monocytes # (A) 0.4 k/uL (0-1.0); Monocytes % (A) 6 %; Neutrophils % (A) 60 %; Platelet Count 149 k/uL (150-450); RBC 3.67 m/uL (3.80-5.40); RDW 17.4 % (11.5-15.5); WBC 6.7 k/uL (3.8-10.6)
[2023-12-09 23:36] LABS: ALT 21 U/L (4-34); AST 24 U/L (14-36); African American GFR (CKD) 87 (>60 ml/min/1.73 sqM); Albumin 3.3 g/dL (3.5-5.0); Alkaline Phosphatase 90 U/L (38-126); Anion Gap 10 mmol/L; Blood Urea Nitrogen 17 mg/dL (7-17); Calcium 8.8 mg/dL (8.4-10.2); Carbon Dioxide 26 mmol/L (22-30); Chloride 102 mmol/L (98-107); Glucose 116 mg/dL (74-99); Magnesium 1.2 mg/dL (1.6-2.3); Non-African American GFR(CKD) 75 (>60 ml/min/1.73 sqM); Potassium 3.7 mmol/L (3.5-5.1); Sodium 138 mmol/L (137-145); Total Bilirubin 0.5 mg/dL (0.2-1.3); Total Protein 5.5 g/dL (6.3-8.2)
[2023-12-10] MEDS ORDERED: MAGNESIUM SULFATE-D5W PMX 1 GM in DEXTROSE/WATER 1 100ML.BAG IVPB SCH (01:15)
[2023-12-10] MEDS: MAGNESIUM SULFATE-D5W PMX 1 GM in DEXTROSE/WATER 1 100ML.BAG IVPB SCH (01:53)
[2023-12-10 04:50] LABS: Anisocytosis Slight; Basophils % (A) 0 %; Eosinophils % (A) 0 %; HCT 31.2 % (34.0-46.0); HGB 10.2 gm/dL (11.4-16.0); Hypochromasia Slight; Lymphocytes # (A) 2.4 k/uL (1.0-4.8); Lymphocytes % (A) 31 %; MCH 27.9 pg (25.0-35.0); MCHC 32.6 g/dL (31.0-37.0); MCV 85.5 fL (80.0-100.0); Monocytes # (A) 0.4 k/uL (0-1.0); Monocytes % (A) 5 %; Neutrophils # (A) 4.8 k/uL (1.3-7.7); Neutrophils % (A) 62 %; Platelet Count 154 k/uL (150-450); RBC 3.65 m/uL (3.80-5.40); RDW 17.4 % (11.5-15.5); WBC 7.7 k/uL (3.8-10.6)
[2023-12-10 05:35] LABS: ALT 22 U/L (4-34); AST 25 U/L (14-36); African American GFR (CKD) >90 (>60 ml/min/1.73 sqM); Albumin 3.4 g/dL (3.5-5.0); Alkaline Phosphatase 103 U/L (38-126); Anion Gap 14 mmol/L; Blood Urea Nitrogen 16 mg/dL (7-17); Calcium 8.9 mg/dL (8.4-10.2); Carbon Dioxide 28 mmol/L (22-30); Chloride 95 mmol/L (98-107); Glucose 116 mg/dL (74-99); Magnesium 1.7 mg/dL (1.6-2.3); Non-African American GFR(CKD) 85 (>60 ml/min/1.73 sqM); Sodium 137 mmol/L (137-145); Total Bilirubin 0.6 mg/dL (0.2-1.3); Total Protein 5.8 g/dL (6.3-8.2)
[2023-12-10 06:24] LABS: Potassium 3.8 mmol/L (3.5-5.1)
[2023-12-10] MEDS: LEVOTHYROXINE 112 MCG TAB PO SCH (06:40)
[2023-12-10] MEDS: INSULIN ASPART (NovoLOG) 100 UNIT/ML VIAL SQ SCH (08:24)
[2023-12-10 08:26] LABS: Glucose,Whole Blood 129 mg/dL (70-110)
[2023-12-10] MEDS: DONEPEZIL 10 MG TAB PO SCH (09:19)
[2023-12-10] MEDS: lisinopriL 5 MG TAB PO SCH (09:19)
[2023-12-10] MEDS: ATORVASTATIN 80 MG TAB PO SCH (09:19)
[2023-12-10] MEDS: ASPIRIN 81 MG PO SCH (09:19)
[2023-12-10] MEDS: CLOPIDOGREL 75 MG TAB PO SCH (09:19)
[2023-12-10] MEDS: GABAPENTIN 300 MG CAP PO SCH (09:20)
[2023-12-10] MEDS: ENOXAPARIN 40 MG/0.4 ML SYRINGE SQ SCH (09:20)
[2023-12-10] MEDS: PANTOPRAZOLE 40 MG TABLET PO SCH (09:20)
[2023-12-10] MEDS: METOPROLOL SUCCINATE (ER) 50 MG TAB.ER.24H PO SCH (09:20)
[2023-12-10] MEDS: DULoxetine HCL 60 MG CAPSULE.DR PO SCH (09:20)
[2023-12-10] MEDS: EZETIMIBE 10 MG TAB PO SCH (09:20)
--- NOTE | 2023-12-10 10:41 | P.PN ---
Subjective Progress Note Date: 12/10/23 Subjective: Patient seen and examined at the bedside. Not complaining of any acute medical concerns. Denies chest pain, shortness of breath, abdominal pain. All Systems reviewed and pertinent positives and negatives noted in HPI, all other symptoms are negative Objective: Vital signs reviewed. General: non toxic, no distress, appears at stated age, normal weight Derm: no unusual rashes/lesions, warm Head: atraumatic, normocephalic, symmetric Eyes: EOMI, no lid lag, anicteric sclera, pupils equal round reactive to light ENT: Nose and ears atraumatic Neck: No cervical lymphadenopathy, trachea midline, supple Mouth: no lip lesion, mucus membranes moist Cardiovascular: S1S2 reg, grade 2/6 systolic murmur, positive dorsalis pedis pulse bilateral, no edema Lungs: CTA bilateral, no rhonchi, no rales, no accessory muscle use Abdominal: soft, nontender to palpation, no guarding Ext: muscle strength 5 out of 5 in all 4 extremities grossly, no gross muscle atrophy, no contractures, Neuro: CN II-XI grossly intact, no gross focal neuro deficits Psych: Alert, oriented, appropriate affect Data reviewed today: Labs: WBC 7.7, hemoglobin 10.2, hematocrit 31.2, platelet count 154, sodium 137, potassium 3.8, creatinine 0.71, glucose 116, calcium 8.9, magnesium 1.7 Troponin 0.084 (previous troponin 0.92) TSH 2.18, folate 11.3 No new imaging Assessment and Plan: 73-year-old female with a PMH of CAD with recent stents, CVA/TIA, dementia, hypertension, systolic heart failure (EF 40% on echo) presents to the ED due to fall. Patient is admitted to the hospital for further investigation for an unwitnessed fall. Daughter is a patient's advocate and believes that she is not getting proper care at home. She would like patient to be sent to rehab at [facility]. #Failure to thrive and deblity with multiple resultant falls in setting of dementia CT head/cervical spine showed no acute intracranial process, ventriculostomy tubing without evidence of hydronephrosis Nonspecific white matter changes, likely secondary to chronic small vessel ischemic Echo on 12/03/2023 showed normal LV size with mild to moderate LVH, apical hypokinesis, EF 40% Denies history of seizure or Orthostatic hypotension; orthostatic vitals ordered Fall and seizure precautions TSH 2.18 Consult OT and PT #Elevated troponin #History of recent RI #Hyperlipidemia Troponin not trending flat EKG independently interpreted show sinus rhythm, T wave inversions V1V5, rate 70 bpm, QTc 458 ms Troponin Elevation possibly due to RI she had last week Denies active chest pain Continue aspirin 81 mg p.o. daily Continue with clopidogrel 75 mg p.o. daily Continue with Lipitor 80 mg p.o. daily Continue with Ezetimibe 10 mg p.o. daily Cardiac monitoring Cardiology is consulted for possible syncopal episode in the setting of recent NSTEMI #Systolic heart failure (EF 40%), not in exacerbation Denies shortness of breath Continue with metoprolol succinate 50 mg p.o. daily Hold Farxiga 10 mg p.o. daily Cardiac monitoring #Hypertension Continue lisinopril 5 mg p.o. daily #Hypomagnesemia, improving, status post magnesium sulfate IVP 3 g Mg 1.7 Follow-up Mg levels #Normocytic anemia Hgb 10.5, MCV 85.4; baseline hgb 12.0 Patient denies active bleeding Obtain iron profile Order B12, folate levels #Type 2 diabetes Placed on insulin sliding scale (medium dose) Monitor glucose for hypoglycemia #Dementia #Dysarthria, at baseline secondary to previous stroke Alert, oriented to person and place only, not oriented to time At baseline mentation confirmed by daughter Continue with donepezil 10 mg p.o. daily #GERD Continue omeprazole 20 mg p.o. daily #Hypothyroidism Continue Synthroid 112 mcg p.o. daily #Anxiety/depression Continue Cymbalta 60 mg p.o. twice daily DVT prophylaxis: Lovenox 40 SQ daily F: None E: Replete as needed N: Heart healthy diet A: Fall and seizure precautions, OT and PT consulted The patient is admitted with an anticipated greater than 2 midnight stay for evaluation of failure to thrive secondary to fall CODE STATUS: Full Discussed with: Patient and son Anticipated discharge place: Home/SNF, [facility] I have seen and evaluated the patient today. Discussed with the resident and agree with the residents finding and plan as documented in the resident's note. Patient has no complaints today. Cardiology consulted. PT/OT consult. Case management on board. Objective - Vital Signs Vital signs: Vital Signs Temp 97.8 F 12/10/23 08:00 Pulse 60 12/10/23 09:16 Resp 18 12/10/23 09:16 BP 171/99 12/10/23 08:00 Pulse Ox 96 12/10/23 09:16 FiO2 Intake & Output 12/09/23 12/10/23 12/10/23 18:59 06:59 18:59 Weight 79.379 kg - Labs CBC & Chem 7: 12/10/23 04:33 12/10/23 04:33 Labs: Abnormal Lab Results - Last 24 Hours (Table) 12/09/23 12/09/23 12/09/23 Range/Units 14:37 14:37 14:37 RBC (3.80-5.40) m/uL Hgb 10.5 L (11.4-16.0) gm/dL Hct 33.6 L (34.0-46.0) % RDW 17.2 H (11.5-15.5) % Plt Count (150-450) k/uL APTT 32.2 H (22.0-30.0) sec Chloride 109 H (98-107) mmol/L Glucose 206 H (74-99) mg/dL POC Glucose (mg/dL) (70-110) mg/dL Magnesium (1.6-2.3) mg/dL Troponin I (0.000-0.034) ng/mL Total Protein 5.9 L (6.3-8.2) g/dL Albumin 3.4 L (3.5-5.0) g/dL 12/09/23 12/09/23 12/09/23 Range/Units 14:37 22:43 22:43 RBC 3.67 L (3.80-5.40) m/uL Hgb 10.0 L (11.4-16.0) gm/dL Hct 31.3 L (34.0-46.0) % RDW 17.4 H (11.5-15.5) % Plt Count 149 L (150-450) k/uL APTT (22.0-30.0) sec Chloride (98-107) mmol/L Glucose 116 H (74-99) mg/dL POC Glucose (mg/dL) (70-110) mg/dL Magnesium 1.2 L (1.6-2.3) mg/dL Troponin I 0.076 H* (0.000-0.034) ng/mL Total Protein 5.5 L (6.3-8.2) g/dL Albumin 3.3 L (3.5-5.0) g/dL 12/09/23 12/10/23 12/10/23 Range/Units 22:43 04:33 04:33 RBC 3.65 L (3.80-5.40) m/uL Hgb 10.2 L (11.4-16.0) gm/dL Hct 31.2 L (34.0-46.0) % RDW 17.4 H (11.5-15.5) % Plt Count (150-450) k/uL APTT (22.0-30.0) sec Chloride 95 L (98-107) mmol/L Glucose 116 H (74-99) mg/dL POC Glucose (mg/dL) (70-110) mg/dL Magnesium (1.6-2.3) mg/dL Troponin I 0.092 H* (0.000-0.034) ng/mL Total Protein 5.8 L (6.3-8.2) g/dL Albumin 3.4 L (3.5-5.0) g/dL 12/10/23 12/10/23 Range/Units 04:33 08:22 RBC (3.80-5.40) m/uL Hgb (11.4-16.0) gm/dL Hct (34.0-46.0) % RDW (11.5-15.5) % Plt Count (150-450) k/uL APTT (22.0-30.0) sec Chloride (98-107) mmol/L Glucose (74-99) mg/dL POC Glucose (mg/dL) 129 H (70-110) mg/dL Magnesium (1.6-2.3) mg/dL Troponin I 0.084 H* (0.000-0.034) ng/mL Total Protein (6.3-8.2) g/dL Albumin (3.5-5.0) g/dL
[2023-12-10 11:04] LABS: % Iron Saturation 9.43 (12.00-45.00); Iron 33 UG/DL (50-170); Total Iron Binding Capacity 350 UG/DL (228-460)
[2023-12-10 12:13] LABS: Glucose,Whole Blood 157 mg/dL (70-110)
[2023-12-10 13:14] LABS: Amphetamine Screen,Urine Not Detected (NotDetected); Barbiturate Screen,Urine Not Detected (NotDetected); Benzodiazepines Screen,Urine Not Detected (NotDetected); Cocaine Screen,Urine Not Detected (NotDetected); Methadone Screen, Urine Not Detected (NotDetected); Opiate Screen,Urine Not Detected (NotDetected); Oxycodone Screen, Urine Not Detected (NotDetected); Phencyclidine Screen,Urine Not Detected (NotDetected); Tricyclic Antidepressant,Urine Not Detected (NotDetected); Urn Cannabinoid Scrn Not Detected (NotDetected)
[2023-12-10 17:05] LABS: Glucose,Whole Blood 190 mg/dL (70-110)
--- NOTE | 2023-12-10 18:44 | P.CRDCN ---
History of Present Illness Consult date: 12/10/23 Reason for Consult (text): Syncope, recent NSTEMI History of present illness: This is a 73-year-old female with a past medical history significant for hypertension, hyperlipidemia, diabetes, coronary artery disease with multivessel stenting, pacemaker implantation, and CVA/TIA with residual speech impediment. Patient follows in the office with Dr. Ruiz. We have been asked to see the patient in consultation for syncope and recent non-STEMI. Patient was hospitalized on 12/01 presenting with chest discomfort for about a week and found to have troponin elevation, underwent cardiac catheterization and stenting of the mid LAD. Patient's states that she was discharged home after the recent ME and she has had 2 falls at home and needs rehab. No loss of consciousness but she did hit her head on the door. Patient denies having chest pain. Breathing seems to be normal. Patient does state that she has been taking all of her medications as scheduled. Patient was scheduled for an appointment with Dr. Ruiz today as a follow-up appointment from recent hospitalization. Blood pressure 148/76, heart rate 60, pulse ox 96% on room air. EKG sinus rhythm with T wave inversion in V leads that were present before - Chest xray negative for acute process. Laboratory studies: WBC 7.7, hemoglobin 10.2. Creatinine 0.71, potassium 3.8. Magnesium 1.7. Troponin 0.084. TSH 2.18. Current home cardiac medications: Aspirin 81 mg daily, Lipitor 80 mg daily, Plavix 75 mg daily, Farxiga 10 mg daily, Zetia 10 mg daily, lisinopril 5 mg daily, Toprol-XL 50 mg daily. Most recent echocardiogram obtained in 12/02/2023 revealing ejection fraction 40% apical hypokinesia, consider apical ballooning syndrome. Mild mitral and tricuspid regurg no pulmonary hypertension. Cardiac catheterization 12/03/[address] Ruiz revealed severe stenosis in the LAD distal to the stented segment. Severe multiple segment disease in the left circumflex and in-stent restenosis. Chronically occluded stented PDA. Patient underwent successful stenting of the mid LAD. REVIEW OF SYSTEMS: At the time of my exam: CONSTITUTIONAL: Denies fever or chills. Reports generalized weakness. HEENT: Denies blurred vision, vision changes, or eye pain. Denies hemoptysis CARDIOVASCULAR: Denies chest pain. Denies orthopnea. Denies PND. Denies palpitations RESPIRATORY: Denies shortness of breath. GASTROINTESTINAL: Denies abdominal pain. Denies nausea or vomiting. HEMATOLOGIC: Denies bleeding disorders. GENITOURINARY: Denies any blood in urine. SKIN: Denies pruitis. Denies rash. PHYSICAL EXAM: VITAL SIGNS: Reviewed. GENERAL: Well-developed in no acute distress. HEENT: Head is normocephalic. Pupils are equal, round. Sclerae anicteric. Mucous membranes of the mouth are moist. Neck supple. No JVD or thyromegaly LUNGS: Respirations even and unlabored. Lungs essentially clear to auscultation bilaterally. HEART: Regular rate and rhythm. S1 and S2 heard. ABDOMEN: Soft. Nondistended. Nontender. EXTREMITIES: Normal range of motion. No clubbing or cyanosis. Peripheral pulses intact. No lower extremity edema NEUROLOGIC: Awake and alert. Oriented x 3. ASSESSMENT: Multiple falls and generalized weakness Recent Non-STEMI status post stenting of the mid LAD Coronary artery disease with previous multivessel stenting Hypertension Hyperlipidemia History of CVA/TIA with residual speech impediment History of pacemaker implantation Diabetes PLAN: No need to repeat echocardiogram Resume home cardiac medications Cardiology will sign off this case and follow on an as-needed basis. Please reconsult for any new concerns. Patient may follow-up in the office with Dr. Ruiz in one to 2 weeks. Nurse practitioner note has been reviewed by physician. Signing provider agrees with the documented findings, assessment, and plan of care documented by [employer] as a scribe. Past Medical History Past Medical History: Coronary Artery Disease (CAD), Chest Pain / Angina, Heart Failure, CVA/TIA, Dementia, Diabetes Mellitus, GERD/Reflux, Hyperlipidemia, Hypertension, Memory Impairment, Myocardial Infarction (ME), Osteoarthritis (OA), Sleep Apnea/CPAP/BIPAP, Thyroid Disorder Additional Past Medical History / Comment(s): Hx TIA with residual poor strength on right side and slow speech. Occasional dizziness. Normal pressure hydrocephalus - has shunt. Neuropathy bilateral feet/toes, chronic back pain, IBS, narcolepsy, gout. Last Myocardial Infarction Date:: 12/27/19 History of Any Multi-Drug Resistant Organisms: None Reported Past Surgical History: Back Surgery, EPS, Heart Catheterization With Stent, Joint Replacement, Orthopedic Surgery, Pacemaker, Tubal Ligation Additional Past Surgical History / Comment(s): 4 cardiac stents, low back surgery, brain shunt, colonoscopy, total left knee replacement, permanent pacemaker placement, got infected and removed and then replaced. Past Anesthesia/Blood Transfusion Reactions: No Reported Reaction, Motion Sickness, Postoperative Nausea & Vomiting (PONV) Date of Last Stent Placement:: 12/27/19 Type of Cardiac Device: Permanent Pacemaker Device Placement Date:: MAR 2020 Past Psychological History: Anxiety, Depression Smoking Status: Never smoker Past Alcohol Use History: None Reported Past Drug Use History: None Reported - Past Family History Father History Unknown: Yes Mother History Unknown: Yes Brother(s) History Unknown: Yes Family Medical History: Cancer, Myocardial Infarction (ME) Additional Family Medical History / Comment(s): One brother had an ME. Another brother had prostate cancer. Medications and Allergies Home Medications Medication Instructions Recorded Confirmed Type DULoxetine HCL [Cymbalta] 60 mg PO BID 12/27/19 12/09/23 History Donepezil [Aricept] 10 mg PO DAILY 09/24/22 12/09/23 History Insulin Detemir [Levemir Flexpen] 52 units SQ DAILY 09/24/22 12/09/23 History Omeprazole [PriLOSEC] 20 mg PO DAILY 09/24/22 12/09/23 History oxyBUTYnin chloride [Ditropan XL] 10 mg PO DAILY 09/24/22 12/09/23 History Aspirin 81 mg PO DAILY tab 09/27/22 12/09/23 Rx Gabapentin [Neurontin] 300 mg PO BID #24 cap 09/27/22 12/09/23 Rx Levothyroxine Sodium [Synthroid] 112 mcg PO DAILY 06/18/23 12/09/23 History Colchicine 1.2 mg PO DAILY 12/02/23 12/09/23 History Meclizine [Antivert] 12.5 - 25 mg PO BID 12/02/23 12/09/23 History Atorvastatin [Lipitor] 80 mg PO DAILY #90 tab 12/05/23 12/09/23 Rx Clopidogrel [Plavix] 75 mg PO DAILY #90 tablet 12/05/23 12/09/23 Rx Dapagliflozin Propanediol [Farxiga] 10 mg PO DAILY #30 tablet 12/05/23 12/09/23 Rx Ezetimibe [Zetia] 10 mg PO DAILY #90 tab 12/05/23 12/09/23 Rx Metoprolol Succinate (ER) [Toprol 50 mg PO DAILY #90 tab 12/05/23 12/09/23 Rx Xl] lisinopriL [Zestril] 5 mg PO DAILY #90 tab 12/05/23 12/09/23 Rx Allergies Allergy/AdvReac Type Severity Reaction Status Date / Time Penicillins Allergy Rash/Hives Verified 12/09/23 18:07 Physical Exam Vitals: Vital Signs Temp Pulse Pulse Resp BP BP BP 12/10/23 12:10 97.8 F 61 18 156/82 12/10/23 12:05 12/10/23 09:50 77 12/10/23 09:45 62 155/84 12/10/23 09:42 63 18 161/90 12/10/23 09:16 60 18 12/10/23 08:00 97.8 F 60 16 171/99 12/10/23 06:54 60 16 184/95 12/10/23 05:10 60 16 186/90 12/09/23 23:06 77 16 156/82 12/09/23 18:42 98.6 F 60 16 152/84 12/09/23 18:00 60 20 129/67 12/09/23 17:45 60 18 153/90 12/09/23 16:30 65 16 164/93 12/09/23 14:21 97.4 F L 74 20 131/74 Pulse Ox 12/10/23 12:10 94 L 12/10/23 12:05 97 12/10/23 09:50 12/10/23 09:45 12/10/23 09:42 12/10/23 09:16 96 12/10/23 08:00 98 12/10/23 06:54 95 12/10/23 05:10 95 12/09/23 23:06 99 12/09/23 18:42 98 12/09/23 18:00 97 12/09/23 17:45 97 12/09/23 16:30 97 12/09/23 14:21 96 Intake and Output 12/09/23 12/10/23 12/10/23 22:59 06:59 14:59 Output Total 700 Balance -700 Output: Urine 700 Results 12/10/23 04:33 12/10/23 04:33 Cardiac Enzymes 12/09/23 12/09/23 12/09/23 Range/Units 14:37 14:37 22:43 AST 25 24 (14-36) U/L Troponin I 0.076 H* (0.000-0.034) ng/mL 12/09/23 12/10/23 12/10/23 Range/Units 22:43 04:33 04:33 AST 25 (14-36) U/L Troponin I 0.092 H* 0.084 H* (0.000-0.034) ng/mL Coagulation 12/09/23 Range/Units 14:37 PT 11.0 (10.0-12.5) sec APTT 32.2 H (22.0-30.0) sec CBC 12/09/23 12/09/23 12/10/23 Range/Units 14:37 22:43 04:33 WBC 8.3 6.7 7.7 (3.8-10.6) k/uL RBC 3.93 3.67 L 3.65 L (3.80-5.40) m/uL Hgb 10.5 L 10.0 L 10.2 L (11.4-16.0) gm/dL Hct 33.6 L 31.3 L 31.2 L (34.0-46.0) % Plt Count 161 149 L 154 (150-450) k/uL Comprehensive Metabolic Panel 12/09/23 12/09/23 12/10/23 Range/Units 14:37 22:43 04:33 Sodium 142 138 137 (137-145) mmol/L Potassium 3.9 3.7 3.8 (3.5-5.1) mmol/L Chloride 109 H 102 95 L (98-107) mmol/L Carbon Dioxide 25 26 28 (22-30) mmol/L BUN 15 17 16 (7-17) mg/dL Creatinine 0.68 0.78 0.71 (0.52-1.04) mg/dL Glucose 206 H 116 H 116 H (74-99) mg/dL Calcium 9.0 8.8 8.9 (8.4-10.2) mg/dL AST 25 24 25 (14-36) U/L ALT 22 21 22 (4-34) U/L Alkaline Phosphatase 87 90 103 (38-126) U/L Total Protein 5.9 L 5.5 L 5.8 L (6.3-8.2) g/dL Albumin 3.4 L 3.3 L 3.4 L (3.5-5.0) g/dL Current Medications Generic Name Dose Route Start Last Admin Trade Name Freq PRN Reason Stop Dose Admin Aspirin 81 mg 12/10/23 09:00 12/10/23 09:19 Aspirin 81 Mg PO 81 mg DAILY FRANCISCO Administration Atorvastatin Calcium 80 mg 12/10/23 09:00 12/10/23 09:19 Atorvastatin 80 Mg Tab PO 80 mg DAILY FRANCISCO Administration Clopidogrel Bisulfate 75 mg 12/10/23 09:00 12/10/23 09:19 Clopidogrel 75 Mg Tab PO 75 mg DAILY FRANCISCO Administration Donepezil HCl 10 mg 12/10/23 09:00 12/10/23 09:19 Donepezil 10 Mg Tab PO 10 mg DAILY FRANCISCO Administration Duloxetine HCl 60 mg 12/10/23 09:00 12/10/23 09:20 Duloxetine Hcl 60 Mg Capsule.Dr PO 60 mg BID FRANCISCO Administration Ezetimibe 10 mg 12/10/23 09:00 12/10/23 09:20 Ezetimibe 10 Mg Tab PO 10 mg DAILY FRANCISCO Administration Enoxaparin Sodium 40 mg 12/10/23 09:00 12/10/23 09:20 Enoxaparin 40 Mg/0.4 Ml Syringe SQ 40 mg DAILY FRANCISCO Administration Gabapentin 300 mg 12/10/23 09:00 12/10/23 09:20 Gabapentin 300 Mg Cap PO 300 mg BID FRANCISCO Administration Insulin Aspart 0 unit 12/10/23 07:30 12/10/23 12:24 Insulin Aspart (Novolog) 100 Unit/Ml Vial SQ 3 unit ACHS FRANCISCO Administration Protocol Levothyroxine Sodium 112 mcg 12/10/23 06:30 12/10/23 06:40 Levothyroxine 112 Mcg Tab PO 112 mcg DAILY@0630 FRANCISCO Administration Lisinopril 5 mg 12/10/23 09:00 12/10/23 09:19 Lisinopril 5 Mg Tab PO 5 mg DAILY FRANCISCO Administration Metoprolol Succinate 50 mg 12/10/23 09:00 12/10/23 09:20 Metoprolol Succinate (Er) 50 Mg Tab.Er.24h PO 50 mg DAILY FRANCISCO Administration Pantoprazole Sodium 20 mg 12/10/23 09:00 12/10/23 09:20 Pantoprazole 40 Mg Tablet PO 20 mg DAILY FRANCISCO Administration Intake and Output 12/09/23 12/10/23 12/10/23 22:59 06:59 14:59 Output Total 700 Balance -700 Output: Urine 700 12/10/23 04:33 12/10/23 04:33
[2023-12-10 20:51] LABS: Glucose,Whole Blood 197 mg/dL (70-110)
[2023-12-11 06:51] LABS: Anisocytosis Slight; Basophils % (A) 0 %; Eosinophils % (A) 0 %; HGB 9.7 gm/dL (11.4-16.0); Hypochromasia Moderate; Lymphocytes # (A) 1.9 k/uL (1.0-4.8); Lymphocytes % (A) 26 %; MCH 26.7 pg (25.0-35.0); MCHC 31.3 g/dL (31.0-37.0); MCV 85.3 fL (80.0-100.0); Mean Platelet Volume 9.1; Monocytes # (A) 0.4 k/uL (0-1.0); Monocytes % (A) 6 %; Neutrophils # (A) 4.6 k/uL (1.3-7.7); Neutrophils % (A) 65 %; Platelet Count 166 k/uL (150-450); RBC 3.63 m/uL (3.80-5.40); RDW 17.1 % (11.5-15.5); WBC 7.1 k/uL (3.8-10.6)
[2023-12-11 07:13] LABS: African American GFR (CKD) 78 (>60 ml/min/1.73 sqM); Anion Gap 5 mmol/L; Blood Urea Nitrogen 16 mg/dL (7-17); Calcium 8.6 mg/dL (8.4-10.2); Carbon Dioxide 29 mmol/L (22-30); Chloride 105 mmol/L (98-107); Glucose 152 mg/dL (74-99); Non-African American GFR(CKD) 67 (>60 ml/min/1.73 sqM); Potassium 3.9 mmol/L (3.5-5.1); Sodium 139 mmol/L (137-145)
[2023-12-11] MEDS: MAGNESIUM SULFATE-D5W PMX 1 GM in DEXTROSE/WATER 1 100ML.BAG IVPB SCH ×2 (09:04→18:30)
--- NOTE | 2023-12-11 11:03 | P.PN ---
Subjective Progress Note Date: 12/11/23 Subjective: Patient seen and examined at the bedside. Not complaining of any acute medical concerns. Denies chest pain, shortness of breath, abdominal pain. All Systems reviewed and pertinent positives and negatives noted in HPI, all other symptoms are negative Objective: Vital signs reviewed. General: non toxic, no distress, appears at stated age, normal weight Derm: no unusual rashes/lesions, warm Head: atraumatic, normocephalic, symmetric Eyes: EOMI, no lid lag, anicteric sclera, pupils equal round reactive to light ENT: Nose and ears atraumatic Neck: No cervical lymphadenopathy, trachea midline, supple Mouth: no lip lesion, mucus membranes moist Cardiovascular: S1S2 reg, grade 2/6 systolic murmur, positive dorsalis pedis pulse bilateral, no edema Lungs: CTA bilateral, no rhonchi, no rales, no accessory muscle use Abdominal: soft, nontender to palpation, no guarding Ext: muscle strength 5 out of 5 in all 4 extremities grossly, no gross muscle atrophy, no contractures, Neuro: CN II-XI grossly intact, no gross focal neuro deficits Psych: Alert, oriented, appropriate affect Data reviewed today: Labs: WBC 7. sodium 139, potassium 3.9, platelet count 166, 31.0,, hematocrit 31 , hemoglobin 9.7, BUN 16, creatinine 0.86, glucose 152, calcium 8.6, magnesium 1.5. Iron 33, TIBC 350, percent saturation 9.43, transferrin 250, ferritin 144 No new imaging Assessment and Plan: 73-year-old female with a PMH of CAD with recent stents, CVA/TIA, dementia, hypertension, systolic heart failure (EF 40% on echo) presents to the ED due to fall. Patient is admitted to the hospital for further investigation for an unwitnessed fall. Daughter is a patient's advocate and believes that she is not getting proper care at home. She would like patient to be sent to rehab at [facility]. Case management on board. #Failure to thrive and deblity with multiple resultant falls in setting of dementia CT head/cervical spine showed no acute intracranial process, ventriculostomy tubing without evidence of hydronephrosis Nonspecific white matter changes, likely secondary to chronic small vessel ischemic Echo on 12/03/2023 showed normal LV size with mild to moderate LVH, apical hypokinesis, EF 40% Fall and seizure precautions TSH 2.18 OT and PT on board #Elevated troponin #History of recent [place] #Hyperlipidemia Troponin not trending flat EKG independently interpreted show sinus rhythm, T wave inversions V1V5, rate 70 bpm, QTc 458 ms Troponin Elevation possibly due to CO she had last week Denies active chest pain Continue aspirin 81 mg p.o. daily Continue with clopidogrel 75 mg p.o. daily Continue with Lipitor 80 mg p.o. daily Continue with Ezetimibe 10 mg p.o. daily Cardiac monitoring Cardiology signed off; patient to follow up outpatient with Dr. Ruiz #Systolic heart failure (EF 40%), not in exacerbation Denies shortness of breath Continue with metoprolol succinate 50 mg p.o. daily Hold Farxiga 10 mg p.o. daily Cardiac monitoring #Hypertension Continue lisinopril 5 mg p.o. daily #Hypomagnesemia Magnesium 1.5 IV mag 2 g Follow-up Mg levels # Iron deficiency anemia Hgb 9.7, MCV 85.4; baseline hgb 12.0 Patient denies active bleeding Iron 33, TIBC 350, percent saturation 9.43, transferrin 250, ferritin 144 #Type 2 diabetes Placed on insulin sliding scale (medium dose) Monitor glucose for hypoglycemia #Dementia #Dysarthria, at baseline secondary to previous stroke Alert, oriented to person and place only, not oriented to time At baseline mentation confirmed by daughter Continue with donepezil 10 mg p.o. daily #GERD Continue omeprazole 20 mg p.o. daily #Hypothyroidism Continue Synthroid 112 mcg p.o. daily #Anxiety/depression Continue Cymbalta 60 mg p.o. twice daily DVT prophylaxis: Lovenox 40 SQ daily F: None E: Replete as needed N: Heart healthy diet A: Fall and seizure precautions, OT and PT consulted The patient is admitted with an anticipated greater than 2 midnight stay for evaluation of failure to thrive secondary to fall CODE STATUS: Full Discussed with: Patient and son Anticipated discharge place: Home/SNF, [facility] I have seen and evaluated the patient today. Discussed with the resident and agree with the residents finding and plan as documented in the resident's note. Patient has no complaints today. She is AO x 2. Cardiology consulted, no further workup. PT/OT consult. Case management on board for placement. Objective - Vital Signs Vital signs: Vital Signs Temp 98.3 F 12/11/23 02:59 Pulse 688 H 12/11/23 09:00 Resp 20 12/11/23 09:00 BP 148/64 12/11/23 09:00 Pulse Ox 98 12/11/23 09:00 FiO2 Intake & Output 12/10/23 12/11/23 12/11/23 18:59 06:59 18:59 Output Total 700 150 Balance -700 -150 Output: Urine 700 150 Other: # Voids 1 # Bowel Movements 1 - Labs CBC & Chem 7: 12/11/23 05:49 12/11/23 05:49 Labs: Abnormal Lab Results - Last 24 Hours (Table) 12/10/23 12/10/23 12/10/23 Range/Units 04:33 12:12 17:03 RBC (3.80-5.40) m/uL Hgb (11.4-16.0) gm/dL Hct (34.0-46.0) % RDW (11.5-15.5) % Glucose (74-99) mg/dL POC Glucose (mg/dL) 157 H 190 H (70-110) mg/dL Magnesium (1.6-2.3) mg/dL Iron 33 L (50-170) UG/DL % Saturation 9.43 L (12.00-45.00) 12/10/23 12/11/23 12/11/23 Range/Units 20:50 05:49 05:49 RBC 3.63 L (3.80-5.40) m/uL Hgb 9.7 L (11.4-16.0) gm/dL Hct 31.0 L (34.0-46.0) % RDW 17.1 H (11.5-15.5) % Glucose 152 H (74-99) mg/dL POC Glucose (mg/dL) 197 H (70-110) mg/dL Magnesium (1.6-2.3) mg/dL Iron (50-170) UG/DL % Saturation (12.00-45.00) 12/11/23 Range/Units 05:49 RBC (3.80-5.40) m/uL Hgb (11.4-16.0) gm/dL Hct (34.0-46.0) % RDW (11.5-15.5) % Glucose (74-99) mg/dL POC Glucose (mg/dL) (70-110) mg/dL Magnesium 1.5 L (1.6-2.3) mg/dL Iron (50-170) UG/DL % Saturation (12.00-45.00)
[2023-12-11 13:21] LABS: Glucose,Whole Blood 150 mg/dL (70-110)
[2023-12-11 16:41] LABS: Glucose,Whole Blood 207 mg/dL (70-110)
[2023-12-11 19:59] LABS: Glucose,Whole Blood 171 mg/dL (70-110)
[2023-12-12] MEDS: ACETAMINOPHEN TAB 325 MG TAB PO PRN (00:59)
[2023-12-12] MEDS: hydrALAZINE HCL 25 MG TAB PO STA (00:59)
[2023-12-12 06:14] LABS: Glucose,Whole Blood 125 mg/dL (70-110)
[2023-12-12 07:48] LABS: Anisocytosis Slight; Basophils % (A) 0 %; Eosinophils % (A) 0 %; HGB 10.9 gm/dL (11.4-16.0); Hypochromasia Slight; Lymphocytes # (A) 1.5 k/uL (1.0-4.8); Lymphocytes % (A) 18 %; MCH 26.4 pg (25.0-35.0); MCHC 31.2 g/dL (31.0-37.0); MCV 84.6 fL (80.0-100.0); Mean Platelet Volume 8.7; Monocytes # (A) 0.5 k/uL (0-1.0); Monocytes % (A) 6 %; Neutrophils % (A) 73 %; Platelet Count 169 k/uL (150-450); RBC 4.14 m/uL (3.80-5.40); RDW 16.8 % (11.5-15.5); WBC 8.1 k/uL (3.8-10.6)
--- NOTE | 2023-12-12 08:12 | US ---
EXAMINATION TYPE: US venous doppler duplex UE RT DATE OF EXAM: 12/12/2023 COMPARISON: NONE CLINICAL INDICATION: Female, 73 years old with history of r/o DVT; SIDE PERFORMED: Right Right Arm: Negative for DVT IMPRESSION: Grayscale, color doppler, spectral doppler imaging performed of the deep veins of the upper extremiti es. There is normal flow, compressibility and vascular waveforms. [facility] 12/12/2023 7:34 AM
[2023-12-12] MEDS: DAPAGLIFLOZIN PROPANEDIOL 10 MG TABLET PO SCH (08:32)
[2023-12-12 10:57] VITALS: BMI 28.0
[2023-12-12 11:35] LABS: Glucose,Whole Blood 300 mg/dL (70-110)
[2023-12-12] MEDS: COLCHICINE 0.6 MG EACH PO SCH (12:17)
[2023-12-12] MEDS: OXYBUTYNIN 10 MG TAB.ER.24 PO SCH (12:17)
--- NOTE | 2023-12-12 12:45 | P.PN ---
Subjective Progress Note Date: 12/12/23 Subjective: Patient seen and examined at the bedside. Patient complaining of right forearm pain overnight. Doppler ultrasound ordered, results negative. Pain is improving. Denies chest pain, shortness of breath, abdominal pain. All Systems reviewed and pertinent positives and negatives noted in HPI, all other symptoms are negative Objective: Vital signs reviewed. General: non toxic, no distress, appears at stated age, normal weight Derm: no unusual rashes/lesions, warm Head: atraumatic, normocephalic, symmetric Eyes: EOMI, no lid lag, anicteric sclera, pupils equal round reactive to light ENT: Nose and ears atraumatic Neck: No cervical lymphadenopathy, trachea midline, supple Mouth: no lip lesion, mucus membranes moist Cardiovascular: S1S2 reg, grade 2/6 systolic murmur, positive dorsalis pedis pulse bilateral, no edema Lungs: CTA bilateral, no rhonchi, no rales, no accessory muscle use Abdominal: soft, nontender to palpation, no guarding Ext: muscle strength 5 out of 5 in all 4 extremities grossly, no gross muscle atrophy, no contractures, right forearm has a brace on Neuro: CN II-XI grossly intact, no gross focal neuro deficits Psych: Alert, oriented, appropriate affect Data reviewed today: Labs: WBC 8.1, hemoglobin 10.9, MCV 84.6, platelet count 169, magnesium 1.4 Venous Doppler ultrasound of the right upper extremity is negative for DVT No new imaging Assessment and Plan: 73-year-old female with a PMH of CAD with recent stents, CVA/TIA, dementia, hypertension, systolic heart failure (EF 40% on echo) presents to the ED due to fall. Patient is admitted to the hospital for further investigation for an unwitnessed fall. Daughter is a patient's advocate and believes that she is not getting proper care at home. She would like patient to be sent to subacute rehab. Case management on board. Pending authorization and placement at [facility]. #Failure to thrive and deblity with multiple resultant falls in setting of dementia CT head/cervical spine showed no acute intracranial process, ventriculostomy tubing without evidence of hydronephrosis Nonspecific white matter changes, likely secondary to chronic small vessel ischemic Echo on 12/03/2023 showed normal LV size with mild to moderate LVH, apical hypokinesis, EF 40% Fall and seizure precautions TSH 2.18 OT and PT on board #Elevated troponin #History of recent [place] #Hyperlipidemia Troponin elevation: Flat Denies active chest pain Continue aspirin 81 mg p.o. daily Continue with clopidogrel 75 mg p.o. daily Continue with Lipitor 80 mg p.o. daily Continue with Ezetimibe 10 mg p.o. daily Cardiac monitoring Cardiology signed off; patient to follow up outpatient with Dr. Ruiz #Systolic heart failure (EF 40%), not in exacerbation Denies shortness of breath Continue with metoprolol succinate 50 mg p.o. daily Hold Farxiga 10 mg p.o. daily Cardiac monitoring #Hypertension Continue lisinopril 5 mg p.o. daily #Hypomagnesemia Magnesium 1.4 IV mag 4 g Follow-up Mg levels # Iron deficiency anemia hemoglobin 10.9, MCV 84.6; baseline hgb 12.0 Patient denies active bleeding Iron 33, TIBC 350, percent saturation 9.43, transferrin 250, ferritin 144 #Type 2 diabetes Placed on insulin sliding scale (medium dose) Monitor glucose for hypoglycemia #Dementia #Dysarthria, at baseline secondary to previous stroke Alert, oriented to person and place only, not oriented to time At baseline mentation confirmed by daughter Continue with donepezil 10 mg p.o. daily #GERD Continue omeprazole 20 mg p.o. daily #Hypothyroidism Continue Synthroid 112 mcg p.o. daily #Anxiety/depression Continue Cymbalta 60 mg p.o. twice daily DVT prophylaxis: Lovenox 40 SQ daily F: None E: Replete as needed N: Heart healthy diet A: Fall and seizure precautions, OT and PT consulted The patient is admitted with an anticipated greater than 2 midnight stay for evaluation of failure to thrive secondary to fall CODE STATUS: Full Discussed with: Patient and son Anticipated discharge place: Home/SNF, likely [facility], pending authorization I have seen and evaluated the patient today. Discussed with the resident and agree with the residents finding and plan as documented in the resident's note. Patient has no complaints today. She is AO x 2. Plans to replace Mag. Plans for [facility] pending insurance auth. Objective - Vital Signs Vital signs: Vital Signs Temp 97.8 F 12/12/23 08:00 Pulse 75 12/12/23 08:00 Resp 18 12/12/23 08:00 BP 132/71 09/14/24 08:00 Pulse Ox 97 12/12/23 08:00 FiO2 Intake & Output 12/11/23 12/12/23 12/12/23 18:59 06:59 18:59 Intake Total 0 Output Total 700 Balance -700 Weight 79.379 kg 83.5 kg 83.5 kg Intake: Oral 0 Output: Urine 700 Other: Voiding Method External Catheter External Catheter # Voids 2 - Labs CBC & Chem 7: 12/12/23 07:18 12/11/23 05:49 Labs: Abnormal Lab Results - Last 24 Hours (Table) 12/11/23 12/11/23 12/11/23 Range/Units 13:19 16:40 19:57 Hgb (11.4-16.0) gm/dL RDW (11.5-15.5) % POC Glucose (mg/dL) 150 H 207 H 171 H (70-110) mg/dL Magnesium (1.6-2.3) mg/dL 12/12/23 12/12/23 12/12/23 Range/Units 06:12 07:18 07:18 Hgb 10.9 L (11.4-16.0) gm/dL RDW 16.8 H (11.5-15.5) % POC Glucose (mg/dL) 125 H (70-110) mg/dL Magnesium 1.4 L (1.6-2.3) mg/dL 12/12/23 Range/Units 11:33 Hgb (11.4-16.0) gm/dL RDW (11.5-15.5) % POC Glucose (mg/dL) 300 H (70-110) mg/dL Magnesium (1.6-2.3) mg/dL
[2023-12-12] MEDS: MAGNESIUM SULFATE-D5W PMX 1 GM in DEXTROSE/WATER 1 100ML.BAG IVPB SCH (15:28)
[2023-12-12 16:32] LABS: Glucose,Whole Blood 167 mg/dL (70-110)
[2023-12-12 20:12] LABS: Glucose,Whole Blood 182 mg/dL (70-110)
[2023-12-13 01:59] LABS: African American GFR (CKD) 54 (>60 ml/min/1.73 sqM); Anion Gap 6 mmol/L; Blood Urea Nitrogen 21 mg/dL (7-17); Calcium 8.5 mg/dL (8.4-10.2); Carbon Dioxide 26 mmol/L (22-30); Chloride 104 mmol/L (98-107); Glucose 147 mg/dL (74-99); Magnesium 2.8 mg/dL (1.6-2.3); Non-African American GFR(CKD) 47 (>60 ml/min/1.73 sqM); Potassium 3.9 mmol/L (3.5-5.1); Sodium 136 mmol/L (137-145)
[2023-12-13 06:23] LABS: Glucose,Whole Blood 132 mg/dL (70-110)
--- NOTE | 2023-12-13 08:53 | US ---
EXAMINATION TYPE: US kidneys/renal and bladder DATE OF EXAM: 12/13/2023 COMPARISON: NONE CLINICAL INDICATION: Female, 73 years old with history of MISSAEL EXAM MEASUREMENTS: Right Kidney: 9.9 x 3.9 x 3.9 cm Left Kidney: 9.0 x 4.8 x 3.6 cm Web [employer] Executive notes:*Technical limitations due to patient's body habitus, overlying bowel gas, and naomy ent's limited mobility Right Kidney: no evidence of hydronephrosis Left Kidney: stones lower pole, largest = 1.3cm. No hydronephrosis. Bladder: Partial distention limits its evaluation. Bilateral Jets seen: no *Incidental finding: sludge within gallbladder IMPRESSION: 1. No hydronephrosis. 2. Lower pole left renal calculi, largest measuring 1.3 cm. 3. Incidental extensive gallbladder sludge. [facility], , 12/13/2023 8:51 AM
[2023-12-13 11:51] LABS: Glucose,Whole Blood 249 mg/dL (70-110)
--- NOTE | 2023-12-13 13:25 | P.PN ---
Subjective Progress Note Date: 12/13/23 73 year old F with PMH of CAD with recent stent, CVA/TIA, dementia, hypertension, systolic CHF EF 40% presented to the ED due to fall. Patient was accompanied by son. States that she was walking outside to her porch last night and fell. Her son states that she has fallen over 10 times within the past year and attributes that due to poor balance. Patient reported that she was unconscious after she fell down for about 10 to 15 minutes and hit the right side of her head. She denies chest pain, SOB or palpitations. She ambulates with a walker. She recently was admitted from 12/01-12/04 for NSTEMI and underwent cardiac cath with stenting to the mid LAD. In the ED she underwent extensive evaluation. BP 131/74, HR 74, T 97.4, RR 20, 96% on RA. CBC, Coag panel, CMP significant for Hg 10.5, Hct 33.5, APTT 32.2, Cl 109, glu 206, alb 3.4. Troponin 0.076, 0.092, 0.084. EKG showed sinus rhythm, T wave inversions V1V5 and II and aVF. CXR showed bilateral patchy infiltrates on the lung bases likely atelectasis. Pelvic XR showed no fracture. CT head + C- spine showed ventriculostomy tube and no acute process, multilevel DJD and chronic small vessel ischemic changes. Admitted for further workup and likely placement. TSH 2.18. B12 475. Folate 11.3. Venous doppler of the RUE negative for DVT. Cardiology consulted recommended no further workup. Evaluated by PT and OT recommending SNF. Case management on board. Pending insurance auth for [facility]. 12/12 Patient was seen and examined. She had urinary retention of 600 cc overnight requiring straight cath. BMP Na 136, BUN 21, Cr 1.16, glu 147. Mag 2 .8. General: no distress, appears at stated age Derm: Warm, dry Head: Atraumatic, normocephalic, symmetric Eyes: EOMI, no lid lag, anicteric sclera Mouth: No lip lesion, mucus membranes moist Cardiovascular: S1S2 reg. systolic murmur. No rubs, gallops Lungs: CTA bilateral, no rhonchi, no rales, no accessory muscle use Abdominal: Soft, no distended, non tender to palpation Ext: No gross muscle atrophy, no edema, no contractures, right forearm braced Neuro: No focal neurologic deficits Psych: Alert, oriented, appropriate affect Based on my assessment of this patient, this patient meets a high complexity level of care. Acute kidney injury: Likely obstructive uropathy. Obtain Renal US. Encourage hydration by mouth. Start Flomax 0.4 mg PO QD. Avoid nephrotoxins. Repeat BMP tomorrow. Failure to thrive and deblity with multiple falls: In setting of dementia. CT head, C-spine no acute process. TSH 2.18, B12 475, Folate 11.3. Fall and seizure precautions. PT and OT on board. Plans for SNF. Elevated troponin: Troponins flat. Recent mid-LAD stent. ASA 81 mg PO QD. Plavix 75 mg PO QD. Lipitor 80 mg PO QD. Zetia 10 mg PO QD. Cardiology signed off. History of recent IA Hyperlipidemia Systolic heart failure (EF 40%): Not in exacerbation. Farxiga 10 mg PO QD. Lisinopril 5 mg PO QD. Metoprolol 50 mg PO QD. Hypertension: Lisinopril, Metoprolol as above. Hypermagnesemia: Mag 2.8. Given 4g Mag sulfate yesterday. Monitor. Iron deficiency anemia: Fe 33. Ferritin 144. No signs of active bleeding. Hg stable. Type 2 diabetes: ISS. Accuchecks ACHS. Dementia: Donepezil 10 mg PO QD. Dysarthria, at baseline secondary to previous stroke GERD: Omeprazole 20 mg PO QD. Hypothyroidism: Synthroid 112 mcg PO QD. Anxiety and depression: Cymbalta 60 mg PO BID. CODE STATUS: NO CODE DVT Prophylaxis: Lovenox SQ GI Prophylaxis: Protonix PO Designated medical POA if patient is not able to make medical decisions for themselves: I have reviewed the following groundwater consultant notes: I have reviewed the results of the following tests: BMP I have ordered the following tests: Renal US, BMP tomorrow AM I have discussed the care of this patient with the following independent historian: STONEY. . I have independently interpreted the following test below: I have discussed the management of this patient with the following physician: Objective - Vital Signs Vital signs: Vital Signs Temp 97.8 F 12/13/23 03:50 Pulse 64 12/13/23 03:50 Resp 16 12/13/23 03:50 BP 108/61 12/13/23 03:50 Pulse Ox 96 12/13/23 03:50 FiO2 Intake & Output 12/12/23 12/12/23 12/13/23 06:59 18:59 06:59 Intake Total 482 Output Total 300 600 Balance -300 -118 Weight 83.5 kg 83.5 kg 98.5 kg Intake: IV 20 Invasive Line 3 20 Oral 462 Output: Urine 300 600 Straight 600 Other: Voiding Method External Catheter External Catheter External Catheter # Voids 2 1 - Labs CBC & Chem 7: 12/12/23 07:18 12/13/23 01:26 Labs: Abnormal Lab Results - Last 24 Hours (Table) 12/12/23 12/12/23 12/12/23 Range/Units 07:18 07:18 11:33 Hgb 10.9 L (11.4-16.0) gm/dL RDW 16.8 H (11.5-15.5) % Sodium (137-145) mmol/L BUN (7-17) mg/dL Creatinine (0.52-1.04) mg/dL Glucose (74-99) mg/dL POC Glucose (mg/dL) 300 H (70-110) mg/dL Magnesium 1.4 L (1.6-2.3) mg/dL 12/12/23 12/12/23 12/13/23 Range/Units 16:31 20:10 01:26 Hgb (11.4-16.0) gm/dL RDW (11.5-15.5) % Sodium 136 L (137-145) mmol/L BUN 21 H (7-17) mg/dL Creatinine 1.16 H (0.52-1.04) mg/dL Glucose 147 H (74-99) mg/dL POC Glucose (mg/dL) 167 H 182 H (70-110) mg/dL Magnesium 2.8 H (1.6-2.3) mg/dL 12/13/23 Range/Units 06:21 Hgb (11.4-16.0) gm/dL RDW (11.5-15.5) % Sodium (137-145) mmol/L BUN (7-17) mg/dL Creatinine (0.52-1.04) mg/dL Glucose (74-99) mg/dL POC Glucose (mg/dL) 132 H (70-110) mg/dL Magnesium (1.6-2.3) mg/dL
[2023-12-13 16:52] LABS: Glucose,Whole Blood 162 mg/dL (70-110)
[2023-12-13] MEDS: TAMSULOSIN 0.4 MG CAP.ER.24H PO SCH (18:03)
[2023-12-13 20:29] LABS: Glucose,Whole Blood 267 mg/dL (70-110)
[2023-12-14 00:21] VITALS: RESP 18
[2023-12-14 06:10] LABS: Glucose,Whole Blood 137 mg/dL (70-110)
[2023-12-14 08:30] LABS: African American GFR (CKD) 60 (>60 ml/min/1.73 sqM); Anion Gap 5 mmol/L; Blood Urea Nitrogen 24 mg/dL (7-17); Calcium 8.6 mg/dL (8.4-10.2); Carbon Dioxide 30 mmol/L (22-30); Chloride 105 mmol/L (98-107); Glucose 137 mg/dL (74-99); Magnesium 2.2 mg/dL (1.6-2.3); Non-African American GFR(CKD) 52 (>60 ml/min/1.73 sqM); Sodium 140 mmol/L (137-145)
[2023-12-14] MEDS: GABAPENTIN 100 MG CAP PO SCH (08:56)
[2023-12-14 10:27] VITALS: TEMP 97.6
[2023-12-14 11:10] LABS: Glucose,Whole Blood 254 mg/dL (70-110)
--- NOTE | 2023-12-14 11:52 | P.DS ---
Providers Date of admission: 12/09/23 19:25 Expected date of discharge: 12/14/23 Attending physician: Yovani Martinez MD Consults: 12/10/23 08:49 Consult Physician Stat Consulting Provider: Berhane Huff Consult Reason/Comments: Syncope recent NSTEMI Do you want consulting provider notified?: Yes Primary care physician: [id number] Course: Discharge Diagnosis: 1. MISSAEL 2. Failure to thrive and debility with multiple falls 3. Elevated troponin 4. Hyperlipidemia 5. Systolic heart failure (ejection fraction 40%), not in exacerbation 6. Hypertension 7. Hypomagnesemia 8. Iron deficiency anemia 9. Dementia 10. Dysarthria 11. GERD 12. Hypothyroidism 13. Anxiety and depression Hospital Course: 73 year old F with PMH of CAD with recent stent, CVA/TIA, dementia, hypertension, systolic CHF EF 40% presented to the ED due to fall. Patient was accompanied by son. States that she was walking outside to her porch last night and fell. Her son states that she has fallen over 10 times within the past year and attributes that due to poor balance. Patient reported that she was unconscious after she fell down for about 10 to 15 minutes and hit the right side of her head. She denies chest pain, SOB or palpitations. She ambulates with a walker. She recently was admitted from 12/01-12/04 for NSTEMI and underwent cardiac cath with stenting to the mid LAD. In the ED she underwent extensive evaluation. BP 131/74, HR 74, T 97.4, RR 20, 96% on RA. CBC, Coag panel, CMP significant for Hg 10.5, Hct 33.5, APTT 32.2, Cl 109, glu 206, alb 3.4. Troponin 0.076, 0.092, 0.084. EKG showed sinus rhythm, T wave inversions V1V5 and II and aVF. CXR showed bilateral patchy infiltrates on the lung bases likely atelectasis. Pelvic XR showed no fracture. CT head + C- spine showed ventriculostomy tube and no acute process, multilevel DJD and chronic small vessel ischemic changes. Admitted for further workup and likely placement. During the course of the admission patient had urinary retention and required straight cath. Renal bladder ultrasound showed no evidence of hydronephrosis bilaterally. However there are stones in left kidney with the largest being 1.3 cm. Creatinine levels improved to 1.05. Patient not complaining of any abdominal pain. Patient to be discharged home [place] catheter. Patient to have voiding trial at [facility] and if fail will need to be evaluated by urology. Anticholinergic medication such as oxybutynin and meclizine has been discontinued. Dosage of gabapentin has been reduced. Patient is advised to continue with rest of medications as directed. Patient has been optimized for discharged to subacute rehab at [facility]. Patient to follow-up with a primary care in 1 to 2 days Instructions provided on acute kidney injury. Vital signs reviewed. Gen: in no apparent distress, resting comfortably in bed Eyes: PERRL, no scleral injection or icterus HENT: normocephalic, atraumatic, good hearing acuity, moist mucous membranes Neck: full range of motion Resp: CTAB, no rales, rhonchi, or wheezes CVS: normal S1 and S2, no murmurs, rubs or gallops, no edema GI: soft, NTTP, ND, no hepatosplenomegaly : no suprapubic tenderness, no CVAT, [place] catheter is present MSK: no clubbing, no cyanosis, no noted contractures of extremities Skin: no noted rashes, petechiae; temperature of skin is appropriate Neuro: moving all extremities without signs of weakness, CN II-XII intact Psych: cooperative, euthymic mood, insight and judgment intact A total of 36 minutes of time were spent preparing this complex discharge summary. Patient was discharged on 12/14/2023 at 949. I have seen and evaluated the patient today. Discussed with the resident and agree with the residents finding and plan as documented in the resident's note. Changes highlighted in blue font. Patient Condition at Discharge: Stable Plan - Discharge Summary New Discharge Prescriptions: New Tamsulosin [Flomax] 0.4 mg PO PC-BRKFST cap Gabapentin [Neurontin] 100 mg PO BID cap Continue DULoxetine HCL [Cymbalta] 60 mg PO BID Omeprazole [PriLOSEC] 20 mg PO DAILY Donepezil [Aricept] 10 mg PO DAILY Aspirin 81 mg PO DAILY tab Levothyroxine Sodium [Synthroid] 112 mcg PO DAILY Colchicine 1.2 mg PO DAILY Atorvastatin [Lipitor] 80 mg PO DAILY #90 tab Metoprolol Succinate (ER) [Toprol XL] 50 mg PO DAILY #90 tab Dapagliflozin Propanediol [Farxiga] 10 mg PO DAILY #30 tablet Clopidogrel [Plavix] 75 mg PO DAILY #90 tablet lisinopriL [Zestril] 5 mg PO DAILY #90 tab Ezetimibe [Zetia] 10 mg PO DAILY #90 tab Changed Insulin Detemir [Levemir Flexpen] 25 units SQ DAILY #0 Discontinued Gabapentin [Neurontin] 300 mg PO BID #24 cap oxyBUTYnin chloride [Ditropan XL] 10 mg PO DAILY Meclizine [Antivert] 12.5 - 25 mg PO BID Discharge Medication List DULoxetine HCL [Cymbalta] 60 mg PO BID 12/27/19 [History] Donepezil [Aricept] 10 mg PO DAILY 09/24/22 [History] Omeprazole [PriLOSEC] 20 mg PO DAILY 09/24/22 [History] Aspirin 81 mg PO DAILY tab 09/27/22 [Rx] Levothyroxine Sodium [Synthroid] 112 mcg PO DAILY 06/18/23 [History] Colchicine 1.2 mg PO DAILY 12/02/23 [History] Atorvastatin [Lipitor] 80 mg PO DAILY #90 tab 12/05/23 [Rx] Clopidogrel [Plavix] 75 mg PO DAILY #90 tablet 12/05/23 [Rx] Dapagliflozin Propanediol [Farxiga] 10 mg PO DAILY #30 tablet 12/05/23 [Rx] Ezetimibe [Zetia] 10 mg PO DAILY #90 tab 12/05/23 [Rx] Metoprolol Succinate (ER) [Toprol XL] 50 mg PO DAILY #90 tab 12/05/23 [Rx] lisinopriL [Zestril] 5 mg PO DAILY #90 tab 12/05/23 [Rx] Gabapentin [Neurontin] 100 mg PO BID cap 12/14/23 [Rx] Insulin Detemir [Levemir Flexpen] 25 units SQ DAILY #0 12/14/23 [Rx] Tamsulosin [Flomax] 0.4 mg PO PC-BRKFST cap 12/14/23 [Rx] Follow up Appointment(s)/Referral(s): Medhat Asif DO [Primary Care Provider] - 1-2 days Patient Instructions/Handouts: Acute Kidney Injury (DC) Activity/Diet/Wound Care/Special Instructions: Voiding trial at rehab If she fails consider urology consult. Discharge Disposition: TRANSFER TO SNF/ECF
[2023-12-14 14:50] VITALS: BP 144/75; PULSE 71
== END 2023-12-14 15:45 | DRG 884 ==
LOC: EC 14:09 → 3SCARD 19:25 → 1SOBS 19:35 → 3SCARD 19:42
PROVIDERS: ADMIT Family Medicine; ATTEND Family Medicine
DX: R41.81 Age-related cognitive decline (principal); I21.4 Non-ST elevation (NSTEMI) myocardial infarction; S06.9X9A Unspecified intracranial injury with loss of consciousness of unspecified duration, initial encounter; I50.22 Chronic systolic (congestive) heart failure; N17.9 Acute kidney failure, unspecified; R62.7 Adult failure to thrive; I11.0 Hypertensive heart disease with heart failure; E78.5 Hyperlipidemia, unspecified; E83.42 Hypomagnesemia; E03.9 Hypothyroidism, unspecified; D64.9 Anemia, unspecified; I25.10 Atherosclerotic heart disease of native coronary artery without angina pectoris; E11.649 Type 2 diabetes mellitus with hypoglycemia without coma; D50.9 Iron deficiency anemia, unspecified; I25.2 Old myocardial infarction; E83.41 Hypermagnesemia; F32.A Depression, unspecified; I69.30 Unspecified sequelae of cerebral infarction; K21.9 Gastro-esophageal reflux disease without esophagitis; N13.9 Obstructive and reflux uropathy, unspecified; R29.6 Repeated falls; Z79.02 Long term (current) use of antithrombotics/antiplatelets; W19.XXXA Unspecified fall, initial encounter; Z79.4 Long term (current) use of insulin; Z79.82 Long term (current) use of aspirin; Z79.84 Long term (current) use of oral hypoglycemic drugs; Z79.890 Hormone replacement therapy; Z79.899 Other long term (current) drug therapy; Z82.49 Family history of ischemic heart disease and other diseases of the circulatory system; Z95.0 Presence of cardiac pacemaker; Z95.5 Presence of coronary angioplasty implant and graft; Z96.652 Presence of left artificial knee joint
CPT/HCPCS: 36415; 70450; 71045; 72125; 72170; 76770; 80048; 80053; 80306; 80320; 82607; 82728; 82746; 83540; 83550; 83735; 84443; 84466; 84484; 85025; 85610; 85730; 86850; 86900; 86901; 93005; 94760; 96361; 96365; 96366; 96367; 96372; 99285